=== PATIENT | male | born 1965 | race Hispanic/Latino ===

== ENCOUNTER 2017-11-29 12:11 | Emergency (ER) | payer SELFPAY ==
[2017-11-29] MEDS ORDERED: DiphenhydrAMINE 50 mg/ml Inj IVP STA (12:27)
[2017-11-29 12:34] VITALS: RESP 18
--- NOTE | 2017-11-29 12:44 | ED PDOC ---
Arrival/HPI - General Chief Complaint: High Blood Pressure Time Seen by Provider: 11/29/17 12:12 Historian: Patient - History of Present Illness Narrative History of Present Illness (Text): 11/29/17 12:27 Patient is a 52 year old male whose past medical history includes hypertension, who presents to the emergency department complaining of elevated blood pressure and headaches. Patient reports that he was taking Bystolic for hypertension for the past few weeks, but subsequently discontinued taking the medication because he felt well. 10 days ago he started experiencing headaches and noticing his BP was elevated. He measured his BP earlier today at [facility] pharmacy and notes that it was 175/125. He denies typically experiencing headaches and notes being slightly nauseous. Patient denies any fever, chills, chest pain, shortness of breath, vomiting, diarrhea, urinary symptoms, back pain, neck pain, dizziness, or any other complaints. Time/Duration: > week Symptom Onset: Gradual Symptom Course: Unchanged Context: Home Past Medical History - Provider Review Nursing Documentation Reviewed: Yes - Cardiac Hx Cardiac Disorders: Yes Hx Hypertension: Yes - Pulmonary Hx Respiratory Disorders: No - Neurological Hx Neurological Disorder: No - HEENT Hx HEENT Disorder: No - Renal Hx Renal Disorder: No - Endocrine/Metabolic Hx Endocrine Disorders: No - Hematological/Oncological Hx Blood Disorders: No - Integumentary Hx Dermatological Disorder: No - Musculoskeletal/Rheumatological Hx Musculoskeletal Disorders: No - Gastrointestinal Hx Gastrointestinal Disorders: No - Genitourinary/Gynecological Hx Genitourinary Disorders: No - Psychiatric Hx Psychophysiologic Disorder: No Hx Substance Use: No Family/Social History - Physician Review Nursing Documentation Reviewed: Yes Family/Social History: No Known Family HX Smoking Status: Heavy Smoker > 10 Cigarettes Daily Hx Alcohol Use: Yes Frequency of alcohol use: Socially Hx Substance Use: No Allergies/Home Meds Allergies/Adverse Reactions: Allergies No Known Allergies Allergy (Verified 11/29/17 12:14) Home Medications: Home Meds Medication Instructions Recorded Confirmed Nebivolol [Bystolic] 10 mg PO DAILY 11/29/17 11/29/17 Review of Systems - Physician Review All systems were reviewed & negative as marked: Yes - Review of Systems Constitutional: absent: Fevers, Night Sweats Respiratory: absent: SOB Cardiovascular: absent: Chest Pain Gastrointestinal: Nausea. absent: Diarrhea, Vomiting Genitourinary Male: absent: Urinary Output Changes Musculoskeletal: absent: Back Pain, Neck Pain Neurological: Headache. absent: Dizziness Physical Exam Vital Signs Reviewed: Yes Vital Signs Temp Pulse Resp BP Pulse Ox 11/29/17 15:15 98.1 F 68 18 142/90 96 11/29/17 14:06 142/90 11/29/17 12:34 55 L 18 156/98 H 95 11/29/17 12:14 98.4 F 54 L 16 161/102 H 96 Temperature: Afebrile Blood Pressure: Hypertensive Pulse: Bradycardic Respiratory Rate: Normal Appearance: Positive for: Well-Appearing Mental Status: Positive for: Alert and Oriented X 3 - Systems Exam Head: Present: Atraumatic, Normocephalic Pupils: Present: PERRL Extroacular Muscles: Present: EOMI Conjunctiva: Present: Normal Mouth: Present: Moist Mucous Membranes Neck: Present: Normal Range of Motion Respiratory/Chest: Present: Clear to Auscultation, Good Air Exchange. No: Respiratory Distress, Accessory Muscle Use Cardiovascular: Present: Regular Rate and Rhythm, Normal S1, S2. No: Murmurs Abdomen: No: Tenderness, Distention, Peritoneal Signs Back: Present: Normal Inspection Upper Extremity: Present: Normal Inspection. No: Cyanosis, Edema Lower Extremity: Present: Normal Inspection. No: Edema Neurological: Present: GCS=15, CN II-XII Intact, Speech Normal Skin: Present: Warm, Dry, Normal Color. No: Rashes Psychiatric: Present: Alert, Oriented x 3, Normal Insight, Normal Concentration Medical Decision Making ED Course and Treatment: 11/29/17 12:46 Impression: Patient is a 52 year old male who is complaining of headaches and elevated BP for the past 10 days. Differential Diagnosis included but are not limited to: suspect essential htn, ro htn urgency vs emergency Plan: -- Head CT without contrast -- EKG -- Cardiac enzymes -- Benadryl -- Reglan -- Urinalysis -- Reassess and disposition Progress Notes: 11/29/17 12:46 EKG shows sinus bradycardia at [address] or T wave changes. Interpreted by me. 11/29/17 14:[address] without Contrast: Creator: FINDINGS: HEMORRHAGE: No intracranial hemorrhage. BRAIN: No mass effect or edema. No atrophy or chronic microvascular ischemic changes. VENTRICLES: Unremarkable. No hydrocephalus. CALVARIUM: Note is made of a small elliptical shaped soft tissue density of with internal calcification in the right parietal scalp near vertex which may represent a inspissated sebaceous cyst. Punctate radiopaque density left parietal scalp could represent tiny calcification or foreign body. PARANASAL SINUSES: Minimal mucosal thickening left maxillary antrum. MASTOID AIR CELLS: Unremarkable as visualized. No inflammatory changes. OTHER FINDINGS: Findings suggest mild bilateral exophthalmos. Clinical correlation with physical exam. Orbits and contents otherwise unremarkable. IMPRESSION: No acute intracranial hemorrhage. Findings suggest mild bilateral exophthalmos. Clinical correlation with physical exam. Follow-up thyroid function tests may be prudent. 11/29/17 14:28 CT exam noted exophthalmos, which was not appreciated on physical exam. Patient noted to be bradycardic, no clinical concern thyroid storm. 11/29/17 15:42 pt reassesed symptoms improved neuro inteact advised outpt fu for outpt thryoid studies and return precautions advised. - Lab Interpretations Lab Results: 11/29/17 12:45 11/29/17 12:45 Lab Results 11/29/17 14:00: Urine Color Yellow, Urine Appearance Clear, Urine pH 6.0, Ur Specific [place] 1.010, Urine Protein Negative, Urine Glucose (UA) Negative, Urine Ketones Negative, Urine Blood Trace-lysed H, Urine Nitrate Negative, Urine Bilirubin Negative, Urine Urobilinogen 0.2, Ur Leukocyte Esterase Negative , Urine RBC 1 - 3, Urine WBC 0 - 2, Ur Epithelial Cells None, Urine Bacteria Small 11/29/17 12:45: Sodium 141, Potassium 5.2 H, Chloride 106, Carbon Dioxide 25, Anion Gap 16, BUN 18, Creatinine 0.9, Est GFR ( Amer) > 60, Est GFR (Non- Af Amer) > 60, Random Glucose 97, Calcium 9.6, Magnesium 2.3 H, Total Bilirubin 0.5, AST 27, ALT 35, Alkaline Phosphatase 48, Lactate Dehydrogenase 515, Total Creatine Kinase 182, Troponin I < 0.01, Total Protein 7.5, Albumin 4.7, Globulin 2.8, Albumin/Globulin Ratio 1.7 11/29/17 12:45: PT 10.6, INR 0.93, APTT 30.0 11/29/17 12:45: WBC 6.2, RBC 4.79, Hgb 15.6, Hct 44.7, MCV 93.3, MCH 32.6, MCHC 34.9, RDW 12.9, Plt Count 193, MPV 10.5, Gran % 61.4, Lymph % (Auto) 29.9, [place] % (Auto) 5.7, Eos % (Auto) 2.8, Baso % (Auto) 0.2, Gran # 3.78, Lymph # (Auto) 1.8, [place] # (Auto) 0.4, Eos # (Auto) 0.2, Baso # (Auto) 0.01 I have reviewed the lab results: Yes - RAD Interpretation Radiology Orders: 11/29/17 12:27 HEAD W/O CONTRAST [CT] Stat Executive Services Administrator: Radiologist - EKG Interpretation Interpreted by ED Physician: Yes Type: 12 lead EKG - Medication Orders Current Medication Orders: Discontinued Medications Diphenhydramine HCl (Benadryl) 25 mg IVP STAT STA Stop: 11/29/17 12:28 Last Admin: 11/29/17 12:55 Dose: 25 mg IVP Administration Document 11/29/17 12:55 (Rec: 11/29/17 12:55 [email or web address]) Charges for Administration # of IVP Administrations 1 Metoclopramide HCl (Reglan) 10 mg IVP STAT STA Stop: 11/29/17 12:28 Last Admin: 11/29/17 12:56 Dose: 10 mg IVP Administration Document 11/29/17 12:56 (Rec: 11/29/17 12:56 [email or web address]) Charges for Administration # of IVP Administrations 1 - Scribe Statement The provider has reviewed the documentation as recorded by the Rissaibmonika Chan Provider Scribe Attestation: All medical record entries made by the Scribe were at my direction and personally dictated by me. I have reviewed the chart and agree that the record accurately reflects my personal performance of the history, physical exam, medical decision making, and the department course for this patient. I have also personally directed, reviewed, and agree with the discharge instructions and disposition. Disposition/Present on Arrival - Present on Arrival Any Indicators Present on Arrival: No History of DVT/PE: No History of Uncontrolled Diabetes: No Urinary Catheter: No History of Decub. Ulcer: No History Surgical Site Infection Following: None - Disposition Have Diagnosis and Disposition been Completed?: Yes Diagnosis: Hypertension, Headache Disposition: HOME/ ROUTINE Disposition Time: 03:00 Condition: STABLE Discharge Instructions (ExitCare): High Blood Pressure in Adults, Headache, Adult (DC) Additional Instructions: please follow up with your doctor/clinic and specialist. please discuss your medications with your doctor and clinic. you may need further management of you blood pressure as an outpatient. return to any er with any worsening symptoms or concerns please discuss your ct results with your doctor. you may need further testing including blood tests as an outpatient. Referrals: [facility] [employer] [facility] [Outside] - [place] up [place] [facility] [place] - Follow up with primary [facility] [Outside] - Follow up with primary Abdirahman Mullen MD [Staff Provider] - Follow up with primary Forms: [email or web address] (Croatian)
[2017-11-29 13:09] LABS: BASO # 0.01 K/mm3 (0.0-2.0); BASO % 0.2 % (0.0-3.0); EOS # 0.2 (0.0-0.7); EOS % 2.8 % (1.5-5.0); GRAN # 3.78 (1.4-6.5); GRAN % 61.4 % (50.0-68.0); HEMOGLOBIN 15.6 g/dL (14.0-18.0); LYMPH # 1.8 (1.2-3.4); LYMPH % 29.9 % (22.0-35.0); MEAN CELL VOLUME 93.3 fl (80.0-105.0); MEAN CORPUSCULAR HEMOGLOBIN 32.6 pg (25.0-35.0); MEAN CORPUSCULAR HGB CONC 34.9 g/dl (31.0-37.0); MEAN PLATELET VOLUME 10.5 fl (7.0-11.0); MONO # 0.4 (0.1-0.6); MONO % 5.7 % (1.0-6.0); RBC 4.79 10^6/uL (3.5-6.1); RED CELL DISTRIBUTION WIDTH 12.9 % (11.5-14.5); WHITE BLOOD COUNT 6.2 10^3/ul (4.5-11.0)
[2017-11-29 13:11] LABS: INR 0.93; PROTHROMBIN TIME 10.6 SECONDS (9.4-12.5)
[2017-11-29 13:12] LABS: ALB/GLOB RATIO 1.7 (1.1-1.8); ALBUMIN 4.7 g/dL (3.0-4.8); CALCIUM 9.6 mg/dL (8.4-10.5); GFR AFRICAN-AMERICAN > 60; GFR NON-AFRICAN AMERICAN > 60
[2017-11-29 13:17] LABS: ALT/SGPT 35 U/L (7-56); AST/SGOT 27 U/L (17-59); BLOOD UREA NITROGEN 18 mg/dL (7-21)
[2017-11-29 13:23] LABS: TROPONIN I < 0.01 ng/mL
[2017-11-29 14:06] VITALS: BP 142/90
--- NOTE | 2017-11-29 14:10 | CT ---
Date of service: 11/29/2017 PROCEDURE: CT HEAD WITHOUT CONTRAST. HISTORY: campa COMPARISON: Sleep TECHNIQUE: Axial computed tomography images were obtained through the head/brain without intravenous contrast. Radiation dose: Total exam DLP = 1033.54 mGy-cm. This CT exam was performed using one or more of the following dose reduction techniques: Automated exposure control, adjustment of the mA and/or kV according to patient size, and/or use of iterative reconstruction technique. FINDINGS: HEMORRHAGE: No intracranial hemorrhage. BRAIN: No mass effect or edema. No atrophy or chronic microvascular ischemic changes. VENTRICLES: Unremarkable. No hydrocephalus. CALVARIUM: Note is made of a small elliptical shaped soft tissue density of with internal calcification in the right parietal scalp near vertex which may represent a inspissated sebaceous cyst. Punctate radiopaque density left parietal scalp could represent tiny calcification or foreign body. PARANASAL SINUSES: Minimal mucosal thickening left maxillary antrum. MASTOID AIR CELLS: Unremarkable as visualized. No inflammatory changes. OTHER FINDINGS: Findings suggest mild bilateral exophthalmos. Clinical correlation with physical exam. Orbits and contents otherwise unremarkable IMPRESSION: No acute intracranial hemorrhage. Findings suggest mild bilateral exophthalmos. Clinical correlation with physical exam. Follow-up thyroid function tests may be prudent.
[2017-11-29 14:25] LABS: URINE BILIRUBIN NEGATIVE (NEGATIVE); URINE BLOOD TRACE-LYSED (NEGATIVE); URINE GLUCOSE (UA) NEGATIVE (NEGATIVE); URINE LEUKOCYTE ESTERASE NEGATIVE Leu/uL (NEGATIVE); URINE PROTEIN NEGATIVE mg/dL (<30 mg/dL); URINE UROBILINOGEN 0.2 E.U./dL (<1 E.U./dL)
[2017-11-29 14:26] LABS: URINE APPEARANCE CLEAR (CLEAR); URINE COLOR YELLOW (YELLOW)
[2017-11-29 14:35] LABS: URINE WBC 0 - 2 /hpf (0-6)
[2017-11-29 14:36] LABS: URINE BACTERIA SMALL (NEG)
[2017-11-29 15:16] VITALS: PULSE 68; TEMP 98.1; O2SAT 96
--- NOTE | 2017-11-30 11:23 | CARD ---
APPROVED REPORT Date of service: 11/29/2017 EKG Measurement Heart [id number] <Conclusion> Sinus bradycardia Otherwise normal ECG
== END 2017-11-29 14:20 | disposition home or self-care (01) ==
LOC: ED 12:11
DX: I10 Essential (primary) hypertension (principal); R51 Headache; F17.210 Nicotine dependence, cigarettes, uncomplicated
CPT/HCPCS: 70450; 80053; 81001; 82550; 83615; 83735; 84484; 85025; 85610; 85730; 93005; 96374; 96375; 99283; J1200; J2765

== ENCOUNTER 2018-07-01 10:11 | Inpatient (IN) | payer BC, MEDICAID ==
--- NOTE | 2018-07-01 10:52 | ED PDOC ---
Arrival/HPI - General Time Seen by Provider: 07/01/18 10:17 Historian: Patient - Critical Care Critical Care Minutes: 60 minutes - History of Present Illness Narrative History of Present Illness (Text): 07/01/18 10:44 53 year old male, 1ppd smoker, whose past medical history includes hypertension, who presents to the emergency department for evaluation of loss of consciousness earlier today. 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 He states that his coworkers noted no seizure activity. Patient states when he woke up he felt chest pressure, nausea, and vomited once on the way here. He is still experiencing chest pressure, dizziness, and nausea. Of note, patient has a stress test several years ago which was normal, but has not followed up with a manager library since. He denies fevers, chills, headache, shortness of breath, dyspnea on exertion, cough, abdominal pain, diarrhea, back pain, neck pain, or any other complaint. Reports history of HTN for which he takes amlodipine. Smokes 1ppd. No known family history of significant cardiac disease. Time/Duration: Prior to Arrival Symptom Onset: Sudden Quality: Pressure Activities at Onset: Light Context: Work Past Medical History - Provider Review Nursing Documentation Reviewed: Yes - Cardiac Hx Cardiac Disorders: Yes Hx Hypertension: Yes - Pulmonary Hx Respiratory Disorders: No - Neurological Hx Neurological Disorder: No - HEENT Hx HEENT Disorder: No - Renal Hx Renal Disorder: No - Endocrine/Metabolic Hx Endocrine Disorders: No - Hematological/Oncological Hx Blood Disorders: No - Integumentary Hx Dermatological Disorder: No - Musculoskeletal/Rheumatological Hx Musculoskeletal Disorders: No - Gastrointestinal Hx Gastrointestinal Disorders: No - Genitourinary/Gynecological Hx Genitourinary Disorders: No - Psychiatric Hx Psychophysiologic Disorder: No Hx Substance Use: No Family/Social History - Physician Review Nursing Documentation Reviewed: Yes Family/Social History: No Known Family HX Smoking Status: Heavy Smoker > 10 Cigarettes Daily Hx Alcohol Use: Yes Hx Substance Use: No Allergies/Home Meds Allergies/Adverse Reactions: Allergies No Known Allergies Allergy (Verified 07/01/18 15:31) Home Medications: Home Meds Medication Instructions Recorded Confirmed amLODIPine [Norvasc] 10 mg PO DAILY 07/01/18 07/01/18 Review of Systems - Physician Review All systems were reviewed & negative as marked: Yes - Review of Systems Constitutional: absent: Fevers Respiratory: absent: SOB, Cough Cardiovascular: absent: Chest Pain (chest pressure) Gastrointestinal: Nausea, Vomiting. absent: Abdominal Pain, Diarrhea Musculoskeletal: absent: Back Pain, Neck Pain Neurological: Dizziness. absent: Headache Physical Exam Vital Signs Reviewed: Yes Vital Signs Temp Pulse Resp BP Pulse Ox 07/01/18 10:23 98.0 F 68 18 133/90 97 Temperature: Afebrile Blood Pressure: Normal Pulse: Regular Respiratory Rate: Normal Appearance: Positive for: Well-Appearing, Non-Toxic, Comfortable Pain Distress: None Mental Status: Positive for: Alert and Oriented X 3 - Systems Exam Head: Present: Atraumatic, Normocephalic Pupils: Present: PERRL Extroacular Muscles: Present: EOMI Conjunctiva: Present: Normal Mouth: Present: Moist Mucous Membranes Neck: Present: Normal Range of Motion Respiratory/Chest: Present: Clear to Auscultation, Good Air Exchange. No: Respiratory Distress, Accessory Muscle Use Cardiovascular: Present: Regular Rate and Rhythm, Normal S1, S2. No: Murmurs Abdomen: No: Tenderness, Distention, Peritoneal Signs Back: Present: Normal Inspection Upper Extremity: Present: Normal Inspection. No: Cyanosis, Edema Lower Extremity: Present: Normal Inspection. No: Edema Neurological: Present: GCS=15, CN II-XII Intact, Speech Normal Skin: Present: Warm, Dry, Normal Color. No: Rashes Psychiatric: Present: Alert, Oriented x 3, Normal Insight, Normal Concentration Medical Decision Making ED Course and Treatment: 07/01/18 10:54 Impression: 53 year old male who presents to the emergency department for evaluation of LOC, chest pressure, dizziness, and vomiting. Plan: -- Labs -- Chest X-ray -- Aspirin -- Nitrostat SL Tab -- Reassess and disposition Prior Visits: Notes and results from previous visits were reviewed. Progress Notes: Patient seen and examined. 07/01/18 10:57 EKG performed at 10:14 reviewed by me, shows: Normal sinus rhythm at 62 bpm with normal axis, normal intervals, no ST elevations, and T wave inversions in lead III. Patient given 324mg ASA and SL nitro x1. Labs drawn. Patient reports improved chest pain after nitro. 07/01/18 11:55 Chest X-ray reviewed by radiologist, shows: IMPRESSION: No active diseases. Positive troponin noted. Patient has no new complaints at this time. Repeat EKG done. 07/01/18 13:45 Repeat EKG performed at 12:21 reviewed by me, shows: Sinus bradycardia at 58bpm, with normal axis, normal intervals, no ST elevations, and T wave inversion in lead III; no change from initial EKG. Case discussed with Dr. Perez, hospitalist guest relations coordinator, who accepts patient for admission. Will book to telemetry bed. Case discussed with Dr. Patel for cardiology consult. Would like CT head, given syncopal episode and possible head trauma, to rule out any intracranial hemorrhage prior to starting heparin. Will likely take to labor and delivery nurse. Patient initially not amenable to admission and wanted to sign out AMA. However he was eventually convinced by myself, medical team, and RN to stay, however he is refusing cardiac cath. Informed by hospitalist team that patient should go to medical service. He initially was listed as a medicaid patient, but does have private insurance. Case discussed with Dr. Wan who accepts patient to his service. Changed admitting attending. 07/01/18 14:30 Rapid response called while patient was in ultrasound undergoing echo ordered by admitting team. Patient had apparently lost pulses and CPR was initiated immediately by radiology staff. Code blue called. Patient was in vfib and received a total of defibrillations x5, epinephrine x4, and one dose 300mg amiodarone and eventually regained pulses. Please refer to code sheet for more details. Patient was intubated by myself during code blue, please refer to procedure note in this chart for more detail. Dr. Patel was present throughout code blue and immediately took patient to labor and delivery nurse following ROSC. 07/01/18 17:55 - Critical Care Critical Care Minutes: 60 minutes - Lab Interpretations I have reviewed the lab results: Yes - RAD Interpretation Radiology Orders: 07/01/18 10:41 CHEST PORTABLE [RAD] Stat Signals Intelligence Superintendent: Radiologist - EKG Interpretation Interpreted by ED Physician: Yes Type: 12 lead EKG - Medication Orders Current Medication Orders: Discontinued Medications Aspirin (Aspirin) 325 mg PO STAT STA Stop: 07/01/18 10:41 Nitroglycerin (Nitrostat Sl Tab) 0.4 mg SL STAT STA Stop: 07/01/18 10:41 Procedures - Intubation Time of Intubation: 14:43 (Intubated during code blue) Intubation Method: orotracheal Tube Size (cm): 7.5 Breath Sounds after Intubation: equal Intubation Complications: no complications Post Intubation Xray: No (Patient went directly to labor and delivery nurse) - Scribe Statement The provider has reviewed the documentation as recorded by the Scribe Deloris Wright Provider Scribe Attestation: All medical record entries made by the Scribe were at my direction and personally dictated by me. I have reviewed the chart and agree that the record accurately reflects my personal performance of the history, physical exam, medical decision making, and the department course for this patient. I have also personally directed, reviewed, and agree with the discharge instructions and disposition. Disposition/Present on Arrival - Present on Arrival Any Indicators Present on Arrival: No History of DVT/PE: No History of Uncontrolled Diabetes: No Urinary Catheter: No History Surgical Site Infection Following: None - Disposition Have Diagnosis and Disposition been Completed?: Yes Diagnosis: NSTEMI (non-ST elevated myocardial infarction) Disposition: HOSPITALIZED Disposition Time: 13:42 Condition: SERIOUS
[2018-07-01 11:15] LABS: BASO # 0.01 K/mm3 (0.0-2.0); BASO % 0.1 % (0.0-3.0); EOS % 0.1 % (1.5-5.0); HEMOGLOBIN 15.5 g/dL (14.0-18.0); LYMPH # 0.8 (1.2-3.4); LYMPH % 7.5 % (22.0-35.0); MEAN CELL VOLUME 92.1 fl (80.0-105.0); MEAN CORPUSCULAR HEMOGLOBIN 31.5 pg (25.0-35.0); MEAN CORPUSCULAR HGB CONC 34.2 g/dl (31.0-37.0); MEAN PLATELET VOLUME 10.7 fl (7.0-11.0); MONO # 0.5 (0.1-0.6); MONO % 4.4 % (1.0-6.0); RBC 4.92 10^6/uL (3.5-6.1); RED CELL DISTRIBUTION WIDTH 13.9 % (11.5-14.5); WHITE BLOOD COUNT 10.7 10^3/uL (4.5-11.0)
--- NOTE | 2018-07-01 11:24 | RAD ---
Date of service: 07/01/2018 HISTORY: chest pain COMPARISON: No prior. FINDINGS: LUNGS: No active pulmonary disease. PLEURA: No significant pleural effusion identified, no pneumothorax apparent. CARDIOVASCULAR: No aortic atherosclerotic calcification present. Normal cardiac size. No pulmonary vascular congestion. OSSEOUS STRUCTURES: No significant abnormalities. VISUALIZED UPPER ABDOMEN: Normal. OTHER FINDINGS: None. IMPRESSION: No active disease.
[2018-07-01 12:00] LABS: ALB/GLOB RATIO 1.6 (1.1-1.8); ALBUMIN 4.9 g/dL (3.0-4.8); ALT/SGPT 132 U/L (7-56); AST/SGOT 144 U/L (17-59); BLOOD UREA NITROGEN 16 mg/dL (7-21); CALCIUM 9.4 mg/dL (8.4-10.5); GFR NON-AFRICAN AMERICAN > 60; TROPONIN I 1.43 ng/mL
[2018-07-01 12:03] LABS: CK MB% 6.8 % (2.5-3.0); CK-MB 38.3 ng/mL (0.0-3.6)
[2018-07-01] MEDS ORDERED: Heparin25000 units/250ml 1/2NS 25,000 UNITS/250 ML BAG IV SCH (13:30)
--- NOTE | 2018-07-01 14:40 | CT ---
Date of service: 07/01/2018 PROCEDURE: CT HEAD WITHOUT CONTRAST. HISTORY: syncope COMPARISON: 11/29/2017 TECHNIQUE: Axial computed tomography images were obtained through the head/brain without intravenous contrast. Radiation dose: Total exam DLP = 982.06 mGy-cm. This CT exam was performed using one or more of the following dose reduction techniques: Automated exposure control, adjustment of the mA and/or kV according to patient size, and/or use of iterative reconstruction technique. FINDINGS: HEMORRHAGE: No intracranial hemorrhage. BRAIN: No mass effect or edema. No atrophy or chronic microvascular ischemic changes. VENTRICLES: Unremarkable. No hydrocephalus. CALVARIUM: Unremarkable. PARANASAL SINUSES: Unremarkable as visualized. No significant inflammatory changes. MASTOID AIR CELLS: Unremarkable as visualized. No inflammatory changes. OTHER FINDINGS: Findings were discussed with Dr. Patel at 2:35 p.m. IMPRESSION: No acute intracranial findings
[2018-07-01 14:43] LABS: INR 1.02; PARTIAL THROMBOPLASTIN TIME 29.4 Seconds (26.9-38.3); PROTHROMBIN TIME 11.3 SECONDS (9.4-12.5)
[2018-07-01] MEDS ORDERED: Lidocaine PF 2% (5 ml) Inj (For Cardiac Arrhy) ONE (14:52)
[2018-07-01] MEDS ORDERED: Iodixanol 320 MG/ML 200 ML BOTTLE IV ONE (14:53)
[2018-07-01] MEDS ORDERED: Iohexol 350mgl/ml 50 ML ONE (14:53)
[2018-07-01] MEDS ORDERED: Iodixanol 320 MG/ML 100 ML BOTTLE IV ONE (14:53)
[2018-07-01] MEDS ORDERED: Nitroglycerin 50mg in D5W 0 MG/0 ML BOTTLE IV ONE (14:54)
[2018-07-01] MEDS ORDERED: Phenylephrine 10 mg/ml Inj ONE (14:54)
[2018-07-01] MEDS ORDERED: Amiodarone 150mg/3 ml vial ONE (15:05)
[2018-07-01] MEDS ORDERED: Eptifibatide 20 mg/10mL Inj IVP ONE (15:18)
[2018-07-01] MEDS ORDERED: Eptifibatide 0.75 mg/ml 75 MG/100 ML BAG IV ONE (15:24)
[2018-07-01] MEDS ORDERED: DOBUTamine 500mg/250ml D5W 500 MG/250 ML BAG ONE (15:52)
[2018-07-01] MEDS ORDERED: Midazolam 2 MG/2 ML VIAL ONE ×2 (15:53→16:08)
[2018-07-01 16:20] LABS: ARTERIAL BLOOD GAS HCO3 14.9 mmol/L (21-28); ARTERIAL BLOOD GAS O2 SAT 98.8 % (95-98); ARTERIAL BLOOD GAS PCO2 40 mm/Hg (35-45); ARTERIAL BLOOD GAS PH 7.18 (7.35-7.45); ARTERIAL BLOOD GAS TCO2 16.1 mmol.L (22-28)
[2018-07-01] MEDS: Eptifibatide 0.75 mg/ml 75 MG/100 ML BAG IV SCH ×2 (16:30→21:37)
[2018-07-01] MEDS: DOBUTamine 500mg/250ml D5W 500 MG/250 ML BAG IV PRN (16:30)
[2018-07-01] MEDS: Midazolam 100 mg/100ml in NS 100 MG/100 ML SOL IV PRN (17:00)
[2018-07-01] MEDS ORDERED: Fentanyl 1000mcg/100ml NS 1,000 MCG/100 ML BAG IV PRN (17:22)
--- NOTE | 2018-07-01 17:36 | CP.PCM.CON ---
History of Present Illness - History of Present Illness History of Present Illness: MICU CONSULT NOTE Patient is 53yo male with PMhx of obesity, HTN, active smoker 1pkpd, presented to the ER with syncopal episode. Pt was noted to elevated troponin 1.1, seen by cardiology refused cardiac cath. While in U/S patient sustained Vfib arrest, shocked 5x, given Amio x 2, and Epi. Total CPR time unknown. ROSC achieved, patient taken to the laboratory technologist, at which time he had 100% RCA occlusion, s/p PCI with stent. Pt also had IABP put in, currently on Doobutamine 5mcg, intubated, sedated. History gathered from cardiology staff, and ER documentation. PMHx as above PSHx unknown Meds unknown FHx NC Social 1pkpd smoker, rest unknown ROS cannot obtain Review of Systems - Review of Systems Review of Systems: intubated, sedated Past Patient History - Infectious Disease Hx of Infectious Diseases: None - Past Social History Smoking Status: Heavy Smoker > 10 Cigarettes Daily - CARDIAC Hx Cardiac Disorders: Yes Hx Hypertension: Yes - PULMONARY Hx Respiratory Disorders: No - NEUROLOGICAL Hx Neurological Disorder: No - HEENT Hx HEENT Problems: No - RENAL Hx Chronic Kidney Disease: No - ENDOCRINE/METABOLIC Hx Endocrine Disorders: No - HEMATOLOGICAL/ONCOLOGICAL Hx Blood Disorders: No - INTEGUMENTARY Hx Dermatological Problems: No - MUSCULOSKELETAL/RHEUMATOLOGICAL Hx Musculoskeletal Disorders: No - GASTROINTESTINAL Hx Gastrointestinal Disorders: No - GENITOURINARY/GYNECOLOGICAL Hx Genitourinary Disorders: No - PSYCHIATRIC Hx Psychophysiologic Disorder: No Hx Substance Use: No - SURGICAL HISTORY Hx Surgeries: No Meds Allergies/Adverse Reactions: Allergies Allergy/AdvReac Type Severity Reaction Status Date / Time No Known Allergies Allergy Verified 07/01/18 15:31 - Medications Medications: Current Medications Heparin Sodium/Sodium Chloride (Heparin 57240 Units/250ml 1/2 Normal Saline) 25,000 units in 250 mls @ 12.791 mls/hr IV .[id number] ALIN; Protocol Lorazepam (Ativan) 2 mg IVP Q2H PRN; Protocol PRN Reason: Anxiety Pantoprazole Sodium (Protonix Ec Tab) 40 mg PO 0600 ALIN Physical Exam - Constitutional Appears: No Acute Distress - Head Exam Head Exam: NORMAL INSPECTION - Eye Exam Eye Exam: Normal appearance - ENT Exam ENT Exam: Mucous Membranes Dry - Respiratory Exam Respiratory Exam: Clear to Auscultation Bilateral, NORMAL BREATHING PATTERN - Cardiovascular Exam Cardiovascular Exam: REGULAR RHYTHM, +S1, +S2 - GI/Abdominal Exam GI & Abdominal Exam: Normal Bowel Sounds - Extremities Exam Extremities exam: Positive for: normal inspection - Neurological Exam Neurological exam: Altered - Skin Skin Exam: Normal Color, Warm Results - Vital Signs Recent Vital Signs: Last Vital Signs Temp 98.0 F 07/01/18 10:23 Pulse 50 L 07/01/18 14:50 Resp 16 07/01/18 14:50 BP 138/80 07/01/18 14:50 Pulse Ox 95 07/01/18 14:50 - Labs Result Diagrams: 07/01/18 11:00 07/01/18 11:00 Labs: Laboratory Results - last 24 hr 07/01/18 07/01/18 07/01/18 11:00 11:00 11:00 WBC 10.7 RBC 4.92 Hgb 15.5 Hct 45.3 MCV 92.1 MCH 31.5 MCHC 34.2 RDW 13.9 Plt Count 223 MPV 10.7 Neut % (Auto) 87.9 H Lymph % (Auto) 7.5 L [place] % (Auto) 4.4 Eos % (Auto) 0.1 L Baso % (Auto) 0.1 Lymph # (Auto) 0.8 L [place] # (Auto) 0.5 Eos # (Auto) 0.0 Baso # (Auto) 0.01 Absolute Neuts (auto) 9.44 H PT INR APTT pCO2 pO2 HCO3 ABG pH ABG Total CO2 ABG O2 Saturation ABG Base Excess ABG Potassium Glucose Lactate FiO2 Crit Value Called To Crit Value Called By Blood Gas Notified Time Sodium 138 Potassium 5.6 H* Chloride 100 Carbon Dioxide 28 Anion Gap 14 BUN 16 Creatinine 0.9 Est GFR ( Amer) > 60 Est GFR (Non-Af Amer) > 60 Random Glucose 151 H Calcium 9.4 Magnesium 1.8 Total Bilirubin 0.6 AST 144 H D ALT 132 H Alkaline Phosphatase 65 Lactate Dehydrogenase 712 H Total Creatine Kinase 560 H CK-MB (CK-2) 38.3 H CK-MB (CK-2) % 6.8 H Troponin I 1.43 H* D Total Protein 8.0 Albumin 4.9 H Globulin 3.1 Albumin/Globulin Ratio 1.6 Arterial Blood Potassium Alcohol, Quantitative < 10 07/01/18 07/01/18 11:30 16:10 WBC RBC Hgb Hct MCV MCH MCHC RDW Plt Count MPV Neut % (Auto) Lymph % (Auto) [place] % (Auto) Eos % (Auto) Baso % (Auto) Lymph # (Auto) [place] # (Auto) Eos # (Auto) Baso # (Auto) Absolute Neuts (auto) PT 11.3 INR 1.02 APTT 29.4 pCO2 40 pO2 114.0 H HCO3 14.9 L ABG pH 7.18 L* ABG Total CO2 16.1 L ABG O2 Saturation 98.8 H ABG Base Excess -12.9 L ABG Potassium 4.7 Glucose 281 H Lactate 8.3 H* FiO2 40.0 Crit Value Called To Crit Value Called By Ritchie Blood Gas Notified Time 1620 Sodium 134.0 Potassium Chloride 98.0 Carbon Dioxide Anion Gap BUN Creatinine Est GFR ( Amer) Est GFR (Non-Af Amer) Random Glucose Calcium Magnesium Total Bilirubin AST ALT Alkaline Phosphatase Lactate Dehydrogenase Total Creatine Kinase CK-MB (CK-2) CK-MB (CK-2) % Troponin I Total Protein Albumin Globulin Albumin/Globulin Ratio Arterial Blood Potassium 4.7 Alcohol, Quantitative Assessment & Plan - Assessment and Plan (Free Text) Assessment: 53yo male with PMHx of HTN, active smoker, presented with syncope, refused cardiac cath, subsequently went into VFIB cardiac arrest a/p PCI of RCA with stent Syncope HTN VFIB arrest s/p ROSC s/p PCI CAD - currently afebrile, HD stable on Dobutamine 5mcg, intubated, sedated on IABP 1:1, s/p PCI of RCA - labs, imaging, chart reviewed Recommend: - cont with vent support, low tidal vol ventilation, duonebs PRN, daily sedation vacation, CPAP trials, ABG, CXR - Nicotine Patch 21mcg - Panculture, UCX, BCx, Procal - NO ID issues - ASA, Statin - HOLD BB - Integrillin drip, as per cardio - Heparin drip - Plavix - ECHO - follow up cardio - repeat BMP, ABG with shock panel - IVF, NS 150cc/hr - FS control - Check HgBA1C, TSH - GI ppx - DVT ppx - Monitor in MICU Critical care time 45 minutes
[2018-07-01 18:15] LABS: ARTERIAL BLOOD GAS HCO3 21.1 mmol/L (21-28); ARTERIAL BLOOD GAS O2 SAT 99.1 % (95-98); ARTERIAL BLOOD GAS PCO2 41 mm/Hg (35-45); ARTERIAL BLOOD GAS PH 7.32 (7.35-7.45); ARTERIAL BLOOD GAS TCO2 22.4 mmol.L (22-28)
[2018-07-01 18:30] LABS: BASO # 0.01 K/mm3 (0.0-2.0); BASO % 0.1 % (0.0-3.0); HEMOGLOBIN 14.4 g/dL (14.0-18.0); LYMPH # 1.2 (1.2-3.4); LYMPH % 7.8 % (22.0-35.0); MEAN CELL VOLUME 91.6 fl (80.0-105.0); MEAN CORPUSCULAR HGB CONC 33.8 g/dl (31.0-37.0); MEAN PLATELET VOLUME 10.1 fl (7.0-11.0); MONO # 0.4 (0.1-0.6); MONO % 2.4 % (1.0-6.0); RBC 4.65 10^6/uL (3.5-6.1); WHITE BLOOD COUNT 15.5 10^3/uL (4.5-11.0)
[2018-07-01] MEDS: Sodium Chloride 0.9% 100 ML IV SCH (18:38)
[2018-07-01] MEDS ORDERED: Influenza Vaccine 60 mcg/0.5 mL SYR (4YR UP) IM ONE (18:48)
[2018-07-01] MEDS ORDERED: Pneumococcal 23-Valent Vaccine IM ONE (18:48)
[2018-07-01 18:51] LABS: LDL CHOLESTEROL 119 mg/dL (0-129)
[2018-07-01 18:57] LABS: ALB/GLOB RATIO 1.4 (1.1-1.8); ALBUMIN 4.1 g/dL (3.0-4.8); ALT/SGPT 201 U/L (7-56); AST/SGOT 306 U/L (17-59); BLOOD UREA NITROGEN 20 mg/dL (7-21); CALCIUM 8.9 mg/dL (8.4-10.5); GFR NON-AFRICAN AMERICAN > 60; HDL CHOLESTEROL 34 mg/dL (29-60)
--- NOTE | 2018-07-01 18:57 | PCM.RRT ---
<Meme Sanchez - Last Filed: 07/01/18 18:41> FRONT END DEVELOPER Nurse Assessment - Situation Date: 07/01/18 Time FRONT END DEVELOPER was called: 13:35 FRONT END DEVELOPER Responder Arrival Time: 13:36 FRONT END DEVELOPER Location:: Ultrasound FRONT END DEVELOPER Reason for Call: Change in Mental Status I.Reason for FRONT END DEVELOPER - A) Acute Change in Patient: Subjective: Rapid response was called at 13:35. Team arrived at 13:36. When the team walked in compressions were already started and rapid response was turned into a code blue. Pt was already attached to AED with monitor. Pt was transferred from ED where pt was noted to have an elevation in trops but refused filling station laborer and wanted to signout AMA. Pt then became unresponsive so FRONT END DEVELOPER and code blue was called. Upon noting that the pt was unresponsive and did not have a pulse ACLS guidelines were initiated. Over the course of the code pt received a total of 4 doses of epinephrine, 300 of amiodarone and 5 shocks as pt was noted to be in Vfib multiple times during the code. Pt was intubated during code. Pt then achieved ROSC and was quickly transferred to filling station laborer. Upon arrival to filling station laborer, pt was safely transferred to the care of Dr. Patel. Please see cath report for full details of intervention. Pt then transferred to ICU for monitoring. - Constitutional Appears: In Acute Distress Additional Comments: unable to perform remained of exam as pt was code blue - Head Head Exam: ATRAUMATIC, NORMAL INSPECTION, NORMOCEPHALIC Plan - Assessment of Findings&Treatment Plan Please see cath report for further details. as per interventions during code blue, detailed above. Procedures Attestation:: I certify that I have explained the specified Operation(s) or Procedure(s), risks, benefits and reasonable alternatives to the Patient and/or other person responsible. The opportunity was given to ask questions and all questions answered - Intubation Time Out Performed: No (during code blue) Sedative: None Laryngoscope: Mikayla ET Tube Secured Locarion: Lips ET Tube Placement Confirmation: Visualized Passing Through Cords, Breath Sounds Equal Bilaterally, No Breath Sounds Over Epigastrum, Confirmation w/Capnometry Patient Tolerated Procedure: Other (was during code, difficult to assess) Procedure Immediate Complications: Other (was during code, difficult to assess) <Radha Perez - Last Filed: 07/13/18 08:00> Attending/Attestation - Attestation I have personally seen and examined this patient.: Yes I have fully participated in the care of the patient.: Yes I have reviewed all pertinent clinical information, including history, physical exam and plan: Yes
[2018-07-01 19:32] LABS: VENOUS BLOOD GAS BASE EXCESS -4.8 mmol/L (0.0-2.0); VENOUS BLOOD GAS PO2 157 mm/Hg (30-55)
--- NOTE | 2018-07-01 19:58 | CARDCATH ---
PROCEDURE DATE: 07/01/2018 EMERGENCY CARDIAC CATHETERIZATION AND PERCUTANEOUS TRANSLUMINAL CORONARY ANGIOPLASTY HISTORY: The patient is a 53-year-old male who presented after a syncopal episode. The patient's past medical history includes a smoker a pack a day with a history of hypertension. 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 He was brought in and the patient states when he woke up he felt chest pressure, nausea, and vomited. The patient has no previous cardiac history. I was called to see him when the ER doctor noticed that his troponins were elevated. Because of his syncope, he was sent for a CT scan of the head. If the CT scan was negative, our plans were to take him to the mineral ore processing labourer for urgent cardiac catheterization for his non-STEMI. The risks benefits of cardiac cath was discussed with patient, but he refused. He wanted to go to [facility] in [place] for further care, even if it required him to sign out AMA. However during his syncopal workup, the patient arrested and had V-fib arrest in ultrasound. He was shocked several times, CPR was performed, and the patient was intubated. After several shocks including several doses of epinephrine, the patient returned to sinus rhythm with a blood pressure of approximately 100. He was started on IV dopamine and brought up to the mineral ore processing labourer under emergency situation. After speaking with the mother on the telephone and relayed his event, the mother verbally agreed to have the procedure done. Emergency cardiac catheterization and PTCA. The right femoral artery was cannulated with 6-Albanian sheath in the mineral ore processing labourer while the patient was on a ventilator and initial hemodynamic pressures revealed a systolic pressure of approximately 90 systolic and the pulse oximetry was at 100%. We sedated the patient since he was thrashing with intravenous Versed 2 mg. With the assistance of a trained observer, we continued conscious sedation. Total conscious sedation time was approximately an hour. The findings on catheterization revealed a left ventricle that contracted normally. Estimated ejection fraction is 60% to 65%. His coronary anatomy revealed a right dominant circulation. The RCA was occluded in its proximal portion. The left main artery was unremarkable. The LAD revealed a long 70% stenoses in its proximal portion extending into the midportion of the LAD. The diagonal vessels and circumflex arteries revealed intimal irregularities without critical lesions. The patient was given intravenous Integrilin two boluses and a drip as well as IV Angiomax. Under fluoroscopic guide, the guiding catheter was placed in the ostium of the RCA. An 0.014 run-through wire was used to cross the total occlusion. A 2.0 followed by 2.5 followed by 3.0 balloon was utilized to dilate the total occlusion. A large thrombus was noted in the proximal to midportion of the RCA. IV Integrilin was continued. A too long 3.5 stents were placed in the proximal RCA extending into the mid RCA. Repeat coronary arteriography revealed an excellent result with no residual stenosis at the lesion. There was slow flow down the PDA given the lucency consistent with thrombus and in the PDA. Given the patient's hemodynamic instability, a balloon pump was placed under fluoroscopic guide and placed into the descending aorta. Augmented pressures were greater than 65 mmHg. In addition, because of the likelihood of an RV infarction, the patient was started on IV dobutamine as well. The patient was transferred to the CCU in stable hemodynamic condition. In summary, the procedure was an emergency cardiac catheterization and PTCA of an occluded RCA due to an acute inferior wall HI complicated by ventricular fibrillation x5, CPR as well as hemodynamic instability consistent with an RV infarct. A balloon pump was placed due to continued hemodynamic instability. Intravenous amiodarone was given to the patient for his ventricular arrhythmias. Given these findings, we will continue hemodynamic support with intra-aortic balloon pump as well as IV dobutamine and dopamine. It is hopeful that his neurologic status will not be affected since CPR was started early as well as hopefully his hemodynamics will improve given his RCA was reperfused and his RV infarct will resolve. Devonte Patel MD ESTHER
--- NOTE | 2018-07-01 21:23 | HP ---
DATE OF EXAM: 07/01/2018 HISTORY OF PRESENT ILLNESS: I was called by the emergency room doctor about Reuben as he was coding and being sent up to cardiac cath for evaluation. This is a 53-year-old . 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 No seizure-like activity was noted. He felt like a chest pressure, nauseous, and vomited once. He was taken to the [place] emergency room, what I understand he was telling people he is going to AM and he want to go to [facility] in [place] and was not going to do a cardiac cath here in [place] and apparently what I understand from the history from the resident with that he have 5 codes with V-fib, taken emergently to the cardiac cath where it was 100% blocked in the RCA I was notified to admit him. He is going to go to the Intensive Care Unit. I discussed this with the inspector elevators. SOCIAL HISTORY: He is a heavy smoker. Does drink alcohol. No substance abuse. FAMILY HISTORY: Unknown. ALLERGIES: NO KNOWN ALLERGIES. MEDICATIONS: He takes Bystolic 10 mg daily. REVIEW OF SYSTEMS: I am finding from the ER, he had chest pressure, nausea, vomiting, dizziness, and passed out. PHYSICAL EXAMINATION: VITAL SIGNS: He had 98 temperature, 68 pulse, 18 respiratory rate, 133/90 blood pressure, and 97%. He is now on the ventilator. He is sedated, status post cardiac cath, stent placement. He is going to go to Intensive Care Unit. HEART: Regular rate, normal S1 and S2. LUNGS: Decreased breath sound bilaterally on the ventilator. ABDOMEN: Soft, obese, and nontender. EXTREMITIES: No edema. LABORATORY DATA: On test; he had a chest x-ray that did not show anything, no acute disease. CAT scan has no acute issues. He had a 10.7 white count, 15.5 hemoglobin, 45.3 hematocrit with 223 platelets. He had 1.02 INR. His pCO2 was 40, pO2 is 114. His ABG is 7.18. Lactate was 8.3. He has 138 sodium, potassium 5.6, BUN 16, creatinine 0.9, GFR greater than 60, sugars 151, calcium 9.4, magnesium 1.8, and total bilirubin 0.6. AST 144, ALT 132, alkaline phosphatase 65, lactate dehydrogenase 712. His troponin was elevated at 1.43. Total protein is 8. ASSESSMENT AND PLAN: He will have a consult with Dr. Devonte Patel. He is going to go to Intensive Care Unit. He was coded and was told 5 times in ventricular fibrillation. He had cardiogenic shock. He has coronary artery disease. Right coronary artery was 100% blocked. He was stented. Ministerio Wan DO MTDD
[2018-07-01 21:53] LABS: HEPATITIS B SURFACE AG Negative (NEGATIVE)
[2018-07-01 21:58] LABS: HEPATITIS A IGM NEGATIVE (NEGATIVE); HEPATITIS B CORE AB NEGATIVE (NEGATIVE)
--- NOTE | 2018-07-01 21:58 | CARD ---
APPROVED REPORT Date of service: 07/01/2018 EKG Measurement Heart [id number] <Conclusion> Normal sinus rhythm Possible Inferior infarct, age undetermined NDSTT abnormalities Prolonged QT Abnormal ECG
--- NOTE | 2018-07-01 22:04 | CARD ---
APPROVED REPORT Date of service: 07/01/2018 EKG Measurement Heart [id number] <Conclusion> Sinus bradycardia Otherwise normal ECG
--- NOTE | 2018-07-01 22:08 | CARD ---
APPROVED REPORT Date of service: 07/01/2018 EKG Measurement Heart [id number] <Conclusion> Normal sinus rhythm Minor NDSTT abnormalities Abnormall ECG
[2018-07-01 22:10] LABS: HEPATITIS C ANTIBODY NEGATIVE (NEGATIVE)
[2018-07-02] MEDS: Sodium Chloride 0.9% 100 ML IV SCH ×3 (00:42→00:56)
[2018-07-02] MEDS: Eptifibatide 0.75 mg/ml 75 MG/100 ML BAG IV SCH ×2 (00:57→04:00)
[2018-07-02] MEDS ORDERED: Sodium Chloride 0.9% 100 ML IV SCH (01:35)
[2018-07-02 02:58] LABS: BARBITURATES, UR NEGATIVE (NEGATIVE); BENZODIAZEPINES, UR POSITIVE (NEGATIVE); OPIATES, UR NEGATIVE (NEGATIVE); PHENCYCLIDINE, UR NEGATIVE (NEGATIVE)
[2018-07-02 05:11] LABS: BASO # 0.01 K/mm3 (0.0-2.0); BASO % 0.1 % (0.0-3.0); HEMOGLOBIN 13.3 g/dL (14.0-18.0); LYMPH # 1.5 (1.2-3.4); LYMPH % 13.1 % (22.0-35.0); MEAN CORPUSCULAR HEMOGLOBIN 30.6 pg (25.0-35.0); MEAN CORPUSCULAR HGB CONC 33.6 g/dl (31.0-37.0); MONO # 0.7 (0.1-0.6); MONO % 5.8 % (1.0-6.0); RBC 4.35 10^6/uL (3.5-6.1); RED CELL DISTRIBUTION WIDTH 14.1 % (11.5-14.5); WHITE BLOOD COUNT 11.5 10^3/uL (4.5-11.0)
[2018-07-02] MEDS ORDERED: Sodium Chloride 0.9% 1,000 ML IV SCH ×3 (05:15→16:01)
[2018-07-02 05:21] LABS: ARTERIAL BLOOD GAS HEMOGLOBIN 13.8 g/dL (11.7-17.4); ARTERIAL BLOOD GAS O2 CAPACITY 18.9 mL/dl (16-24); ARTERIAL BLOOD GAS O2 CONTENT 18.5 ML/dl (15-23); ARTERIAL BLOOD GAS O2 SAT 97.7 % (95-98); ARTERIAL BLOOD GAS PCO2 37 mm/Hg (35-45); ARTERIAL BLOOD GAS PH 7.42 (7.35-7.45); ARTERIAL BLOOD GAS TCO2 25.1 mmol.L (22-28)
[2018-07-02 05:32] LABS: LDL CHOLESTEROL 111 mg/dL (0-129)
[2018-07-02] MEDS ORDERED: Pantoprazole 40 mg EC Tab PO SCH (06:00)
[2018-07-02] MEDS: Midazolam 100 mg/100ml in NS 100 MG/100 ML SOL IV PRN (06:46)
[2018-07-02] MEDS: DOBUTamine 500mg/250ml D5W 500 MG/250 ML BAG IV PRN (06:47)
[2018-07-02 06:49] LABS: ALB/GLOB RATIO 1.4 (1.1-1.8); ALBUMIN 3.8 g/dL (3.0-4.8); ALT/SGPT 180 U/L (7-56); AST/SGOT 485 U/L (17-59); BLOOD UREA NITROGEN 16 mg/dL (7-21); CALCIUM 8.5 mg/dL (8.4-10.5); GFR NON-AFRICAN AMERICAN > 60; HDL CHOLESTEROL 36 mg/dL (29-60)
--- NOTE | 2018-07-02 07:11 | CP.CCUPN ---
<Jaime Cardenas - Last Filed: 07/02/18 12:46> CCU Subjective - Physician Review Subjective (Free Text): Jaime Cardenas DO. Critical Care Progress note Patient seen and examined at bedside, sedated/intubated on fentanyl and versed drip . He had mild nasal and oral bleeding that was suctioned no significant overnight events. CCU Objective - Vital Signs / Intake & Output Vital Signs (Last 4 hours): Vital Signs Temp Pulse Resp BP Pulse Ox 07/02/18 06:00 99.5 F 119 H 123 H 123/74 07/02/18 05:00 119 H 20 125/76 07/02/18 04:00 99.7 F H 117 H 21 125/74 07/02/18 03:57 119 H 07/02/18 03:50 117 H 93 L 07/02/18 03:45 116 H 124/81 94 L 07/02/18 03:40 118 H 94 L 07/02/18 03:30 118 H 128/78 95 07/02/18 03:20 114 H 95 07/02/18 03:15 114 H 123/75 95 Intake and Output (Last 8hrs): Intake & Output 07/01/18 07/02/18 07/02/18 22:59 06:59 14:59 Intake Total 294 2694 Output Total 690 700 Balance -396 1994 Weight 232 lb Intake: IV 294 2694 Dobutamine 192 Heparin 172 Left Hand 200 Right Antecubital 1800 fentanyl 30 integrilin 192 Output: Urine 690 700 Urethral ([place]) 690 700 Stool 0 - Physical Exam Physical Exam Limitations: Positive for: Altered Mental Status Head: Positive for: Atraumatic, Normocephalic Pupils: Positive for: Sluggish Extroacular Muscles: Positive for: EOMI Conjunctiva: Positive for: Normal Mouth: Positive for: Moist Mucous Membranes Nose (Internal): Positive for: Other (dried blood nticed, packing applied) Neck: Positive for: Normal Range of Motion Respiratory/Chest: Positive for: Decreased Breath Sounds Cardiovascular: Positive for: Regular Rate and Rhythm, Normal S1, S2. Negative for: Murmurs Abdomen: Negative for: Tenderness, Distention, Peritoneal Signs Back: Positive for: Normal Inspection Upper Extremity: Positive for: Normal Inspection. Negative for: Cyanosis, Edema Lower Extremity: Positive for: Normal Inspection. Negative for: Edema Neurological: Positive for: Other (sedated) Skin: Positive for: Warm, Dry, Normal Color. Negative for: Rashes - Medications Active Medications: Active Medications Generic Name Dose Route Start Last Admin Trade Name Freq PRN Reason Stop Dose Admin Albuterol/Ipratropium 3 ml 07/01/18 17:28 Duoneb 3 Mg/0.5 Mg (3 Ml) Ud IH Q2H PRN Shortness of Breath Heparin Sodium/Sodium Chloride 25,000 units in 250 mls @ 12.791 mls/hr 07/01/18 13:30 07/01/18 22:50 Heparin 79409 Units/250ml 1/2 Normal Saline IV 14 units/kg/hr .[id number] ALIN 14.923 mls/hr Titration Protocol 12 UNITS/KG/HR Fentanyl Citrate 1,000 mcg in 100 mls @ 1 mls/hr 07/01/18 17:22 07/02/18 01:06 Fentanyl Citrate/Sodium Chloride 1 Mg/100 Ml IV 0 mcg/hr .Q24H PRN 0 mls/hr TITRATE PER MD ORDER Titration Protocol 10 MCG/HR Midazolam 100 mg/100ml in NS 100 mg in 100 mls @ 1 mls/hr 07/01/18 17:22 07/02/18 06:46 Midazolam 100 Mg/100ml In Ns IV 8 mg/hr .Q24H PRN 8 mls/hr Sedation Administration Protocol 1 MG/HR Dobutamine HCl/Dextrose 500 mg in 250 mls @ 15.853 mls/hr 07/01/18 17:32 07/02/18 06:47 Dobutamine/Dextrose 5% 500mg/250ml IV 5 mcg/kg/min .[id number] PRN 15.853 mls/hr TITRATE PER PROTOCOL Administration Protocol 5 MCG/KG/MIN Eptifibatide 75 mg in 100 mls @ 16.91 mls/hr 07/01/18 18:00 07/02/18 04:00 Integrilin IV 16.91 mls/hr .[id number] ALIN Administration Protocol 2 MCG/KG/MIN Sodium Chloride 1,000 mls @ 150 mls/hr 07/02/18 05:15 07/02/18 06:51 Sodium Chloride 0.9% IV 150 mls/hr .[id number] ALIN Administration Ampicillin Sodium/Sulbactam 100 mls @ 200 mls/hr 07/02/18 12:00 Sodium 3 gm/ Sodium Chloride IVPB 07/08/18 12:01 Q6 ALIN Protocol Lorazepam 2 mg 07/01/18 14:13 07/01/18 23:53 Ativan IVP 2 mg Q2H PRN Administration Anxiety Protocol Nicotine 1 patch 07/02/18 10:00 Nicoderm Cq TD DAILY ALIN Pantoprazole Sodium 40 mg 07/01/18 22:00 07/01/18 21:36 Protonix Inj IVP 40 mg Q12 ALIN Administration - Patient Studies Lab Studies: Lab Studies 07/02/18 07/02/18 07/02/18 Range/Units 05:10 05:00 05:00 WBC (4.5-11.0) 10^3/uL RBC (3.5-6.1) 10^6/uL Hgb (14.0-18.0) g/dL Hct (42.0-52.0) % MCV (80.0-105.0) fl MCH (25.0-35.0) pg MCHC (31.0-37.0) g/dl RDW (11.5-14.5) % Plt Count (120.0-450.0) 10^3/uL MPV (7.0-11.0) fl Neut % (Auto) (50.0-68.0) % Lymph % (Auto) (22.0-35.0) % [place] % (Auto) (1.0-6.0) % Eos % (Auto) (1.5-5.0) % Baso % (Auto) (0.0-3.0) % Lymph # (Auto) (1.2-3.4) [place] # (Auto) (0.1-0.6) Eos # (Auto) (0.0-0.7) Baso # (Auto) (0.0-2.0) K/mm3 Absolute Neuts (auto) (1.4-6.5) PT (9.4-12.5) SECONDS INR APTT 58.3 H (26.9-38.3) Seconds pCO2 37 (35-45) mm/Hg pO2 79.0 L (80-100) mm/Hg HCO3 24.0 (21-28) mmol/L ABG pH 7.42 (7.35-7.45) ABG Total CO2 25.1 (22-28) mmol.L ABG O2 Saturation 97.7 (95-98) % ABG O2 Content 18.5 (15-23) ML/dl ABG Base Excess -0.2 (-2.0-3.0) mmol/L ABG Hemoglobin 13.8 (11.7-17.4) g/dL ABG Carboxyhemoglobin 1.7 H (0.5-1.5) % POC ABG HHb (Measured) 2.2 (0-5) % ABG Methemoglobin 1.1 (0.0-3.0) % ABG O2 Capacity 18.9 (16-24) mL/dl ABG Potassium (3.6-5.2) mmol/L VBG pH (7.32-7.43) VBG pCO2 (40-60) VBG HCO3 (21-28) mmol/l VBG Total CO2 (22-28) mmol.L VBG O2 Sat (Calc) (40-65) % VBG Base Excess (0.0-2.0) mmol/L VBG Potassium (3.6-5.2) mmol/L Hgb O2 Saturation 94.9 L (95.0-98.0) % Glucose (75-110) mg/dl Lactate (0.7-2.1) mmol/L FiO2 40.0 % Crit Value Called To Crit Value Called By Blood Gas Notified Time Sodium 139 (132-148) mmol/L Potassium 3.8 (3.6-5.0) mmol/L Chloride 107 (98-107) mmol/L Carbon Dioxide 26 (21-33) mmol/L Anion Gap 10 (10-20) BUN 16 (7-21) mg/dL Creatinine 1.0 (0.8-1.5) mg/dl Est GFR ( Amer) > 60 Est GFR (Non-Af Amer) > 60 Random Glucose 105 (70-110) mg/dL Hemoglobin A1c (4.2-6.5) % Calcium 8.5 (8.4-10.5) mg/dL Phosphorus 2.5 (2.5-4.5) mg/dL Magnesium 1.7 (1.7-2.2) mg/dL Total Bilirubin 0.7 (0.2-1.3) mg/dL AST 485 H D (17-59) U/L ALT 180 H (7-56) U/L Alkaline Phosphatase 55 (38-126) U/L Lactate Dehydrogenase (333-699) U/L Total Creatine Kinase (35-230) U/L CK-MB (CK-2) (0.0-3.6) ng/mL CK-MB (CK-2) % (2.5-3.0) % Troponin I ng/mL Total Protein 6.5 (5.8-8.3) g/dL Albumin 3.8 (3.0-4.8) g/dL Globulin 2.7 gm/dL Albumin/Globulin Ratio 1.4 (1.1-1.8) Triglycerides 144 (35-160) mg/dL Cholesterol 175 (130-200) mg/dL LDL Cholesterol Direct 111 (0-129) mg/dL HDL Cholesterol 36 (29-60) mg/dL TSH 3rd Generation (0.46-4.68) mIU/mL Arterial Blood Potassium (3.6-5.2) mmol/L Venous Blood Potassium (3.6-5.2) mmol/L Urine Opiates Screen (NEGATIVE) Urine Methadone Screen (NEGATIVE) Ur Barbiturates Screen (NEGATIVE) Ur Phencyclidine Scrn (NEGATIVE) Ur Amphetamines Screen (NEGATIVE) U Benzodiazepines Scrn (NEGATIVE) U Oth Cocaine Metabols (NEGATIVE) U Cannabinoids Screen (NEGATIVE) Alcohol, Quantitative (0-10) mg/dL Hepatitis A IgM Ab (NEGATIVE) Hep Bs Antigen (NEGATIVE) Hep B Core IgM Ab (NEGATIVE) Hepatitis C Antibody (NEGATIVE) Blood Type Blood Type Confirm Antibody Screen BBK History Checked 07/02/18 07/02/18 07/01/18 Range/Units 05:00 01:50 22:14 WBC 11.5 H D (4.5-11.0) 10^3/uL RBC 4.35 (3.5-6.1) 10^6/uL Hgb 13.3 L (14.0-18.0) g/dL Hct 39.6 L (42.0-52.0) % MCV 91.0 (80.0-105.0) fl MCH 30.6 (25.0-35.0) pg MCHC 33.6 (31.0-37.0) g/dl RDW 14.1 (11.5-14.5) % Plt Count 179 (120.0-450.0) 10^3/uL MPV 10.0 (7.0-11.0) fl Neut % (Auto) 81.0 H (50.0-68.0) % Lymph % (Auto) 13.1 L (22.0-35.0) % [place] % (Auto) 5.8 (1.0-6.0) % Eos % (Auto) 0.0 L (1.5-5.0) % Baso % (Auto) 0.1 (0.0-3.0) % Lymph # (Auto) 1.5 (1.2-3.4) [place] # (Auto) 0.7 H (0.1-0.6) Eos # (Auto) 0.0 (0.0-0.7) Baso # (Auto) 0.01 (0.0-2.0) K/mm3 Absolute Neuts (auto) 9.31 H (1.4-6.5) PT (9.4-12.5) SECONDS INR APTT 43.1 H (26.9-38.3) Seconds pCO2 (35-45) mm/Hg pO2 (80-100) mm/Hg HCO3 (21-28) mmol/L ABG pH (7.35-7.45) ABG Total CO2 (22-28) mmol.L ABG O2 Saturation (95-98) % ABG O2 Content (15-23) ML/dl ABG Base Excess (-2.0-3.0) mmol/L ABG Hemoglobin (11.7-17.4) g/dL ABG Carboxyhemoglobin (0.5-1.5) % POC ABG HHb (Measured) (0-5) % ABG Methemoglobin (0.0-3.0) % ABG O2 Capacity (16-24) mL/dl ABG Potassium (3.6-5.2) mmol/L VBG pH (7.32-7.43) VBG pCO2 (40-60) VBG HCO3 (21-28) mmol/l VBG Total CO2 (22-28) mmol.L VBG O2 Sat (Calc) (40-65) % VBG Base Excess (0.0-2.0) mmol/L VBG Potassium (3.6-5.2) mmol/L Hgb O2 Saturation (95.0-98.0) % Glucose (75-110) mg/dl Lactate (0.7-2.1) mmol/L FiO2 % Crit Value Called To Crit Value Called By Blood Gas Notified Time Sodium (132-148) mmol/L Potassium (3.6-5.0) mmol/L Chloride (98-107) mmol/L Carbon Dioxide (21-33) mmol/L Anion Gap (10-20) BUN (7-21) mg/dL Creatinine (0.8-1.5) mg/dl Est GFR ( Amer) Est GFR (Non-Af Amer) Random Glucose (70-110) mg/dL Hemoglobin A1c (4.2-6.5) % Calcium (8.4-10.5) mg/dL Phosphorus (2.5-4.5) mg/dL Magnesium (1.7-2.2) mg/dL Total Bilirubin (0.2-1.3) mg/dL AST (17-59) U/L ALT (7-56) U/L Alkaline Phosphatase (38-126) U/L Lactate Dehydrogenase (333-699) U/L Total Creatine Kinase (35-230) U/L CK-MB (CK-2) (0.0-3.6) ng/mL CK-MB (CK-2) % (2.5-3.0) % Troponin I ng/mL Total Protein (5.8-8.3) g/dL Albumin (3.0-4.8) g/dL Globulin gm/dL Albumin/Globulin Ratio (1.1-1.8) Triglycerides (35-160) mg/dL Cholesterol (130-200) mg/dL LDL Cholesterol Direct (0-129) mg/dL HDL Cholesterol (29-60) mg/dL TSH 3rd Generation (0.46-4.68) mIU/mL Arterial Blood Potassium (3.6-5.2) mmol/L Venous Blood Potassium (3.6-5.2) mmol/L Urine Opiates Screen Negative (NEGATIVE) Urine Methadone Screen Negative (NEGATIVE) Ur Barbiturates Screen Negative (NEGATIVE) Ur Phencyclidine Scrn Negative (NEGATIVE) Ur Amphetamines Screen Positive H (NEGATIVE) U Benzodiazepines Scrn Positive H (NEGATIVE) U Oth Cocaine Metabols Negative (NEGATIVE) U Cannabinoids Screen Negative (NEGATIVE) Alcohol, Quantitative (0-10) mg/dL Hepatitis A IgM Ab (NEGATIVE) Hep Bs Antigen (NEGATIVE) Hep B Core IgM Ab (NEGATIVE) Hepatitis C Antibody (NEGATIVE) Blood Type Blood Type Confirm Antibody Screen BBK History Checked 07/01/18 07/01/18 07/01/18 Range/Units 19:50 19:20 18:30 WBC (4.5-11.0) 10^3/uL RBC (3.5-6.1) 10^6/uL Hgb (14.0-18.0) g/dL Hct (42.0-52.0) % MCV (80.0-105.0) fl MCH (25.0-35.0) pg MCHC (31.0-37.0) g/dl RDW (11.5-14.5) % Plt Count (120.0-450.0) 10^3/uL MPV (7.0-11.0) fl Neut % (Auto) (50.0-68.0) % Lymph % (Auto) (22.0-35.0) % [place] % (Auto) (1.0-6.0) % Eos % (Auto) (1.5-5.0) % Baso % (Auto) (0.0-3.0) % Lymph # (Auto) (1.2-3.4) [place] # (Auto) (0.1-0.6) Eos # (Auto) (0.0-0.7) Baso # (Auto) (0.0-2.0) K/mm3 Absolute Neuts (auto) (1.4-6.5) PT (9.4-12.5) SECONDS INR APTT (26.9-38.3) Seconds pCO2 (35-45) mm/Hg pO2 157 H (80-100) mm/Hg HCO3 (21-28) mmol/L ABG pH (7.35-7.45) ABG Total CO2 (22-28) mmol.L ABG O2 Saturation (95-98) % ABG O2 Content (15-23) ML/dl ABG Base Excess (-2.0-3.0) mmol/L ABG Hemoglobin (11.7-17.4) g/dL ABG Carboxyhemoglobin (0.5-1.5) % POC ABG HHb (Measured) (0-5) % ABG Methemoglobin (0.0-3.0) % ABG O2 Capacity (16-24) mL/dl ABG Potassium (3.6-5.2) mmol/L VBG pH 7.30 L (7.32-7.43) VBG pCO2 44.0 (40-60) VBG HCO3 21.6 (21-28) mmol/l VBG Total CO2 23.0 (22-28) mmol.L VBG O2 Sat (Calc) 99.7 H (40-65) % VBG Base Excess -4.8 L (0.0-2.0) mmol/L VBG Potassium 5.0 (3.6-5.2) mmol/L Hgb O2 Saturation (95.0-98.0) % Glucose 167 H (75-110) mg/dl Lactate 4.1 H* (0.7-2.1) mmol/L FiO2 21.0 % Crit Value Called To Misbah herrera Crit Value Called By Blood Gas Notified Time 1930 Sodium 135.0 (132-148) mmol/L Potassium (3.6-5.0) mmol/L Chloride 103.0 (98-107) mmol/L Carbon Dioxide (21-33) mmol/L Anion Gap (10-20) BUN (7-21) mg/dL Creatinine (0.8-1.5) mg/dl Est GFR ( Amer) Est GFR (Non-Af Amer) Random Glucose (70-110) mg/dL Hemoglobin A1c (4.2-6.5) % Calcium (8.4-10.5) mg/dL Phosphorus (2.5-4.5) mg/dL Magnesium (1.7-2.2) mg/dL Total Bilirubin (0.2-1.3) mg/dL AST (17-59) U/L ALT (7-56) U/L Alkaline Phosphatase (38-126) U/L Lactate Dehydrogenase (333-699) U/L Total Creatine Kinase (35-230) U/L CK-MB (CK-2) (0.0-3.6) ng/mL CK-MB (CK-2) % (2.5-3.0) % Troponin I ng/mL Total Protein (5.8-8.3) g/dL Albumin (3.0-4.8) g/dL Globulin gm/dL Albumin/Globulin Ratio (1.1-1.8) Triglycerides (35-160) mg/dL Cholesterol (130-200) mg/dL LDL Cholesterol Direct (0-129) mg/dL HDL Cholesterol (29-60) mg/dL TSH 3rd Generation (0.46-4.68) mIU/mL Arterial Blood Potassium (3.6-5.2) mmol/L Venous Blood Potassium 5.0 (3.6-5.2) mmol/L Urine Opiates Screen (NEGATIVE) Urine Methadone Screen (NEGATIVE) Ur Barbiturates Screen (NEGATIVE) Ur Phencyclidine Scrn (NEGATIVE) Ur Amphetamines Screen (NEGATIVE) U Benzodiazepines Scrn (NEGATIVE) U Oth Cocaine Metabols (NEGATIVE) U Cannabinoids Screen (NEGATIVE) Alcohol, Quantitative (0-10) mg/dL Hepatitis A IgM Ab (NEGATIVE) Hep Bs Antigen (NEGATIVE) Hep B Core IgM Ab (NEGATIVE) Hepatitis C Antibody (NEGATIVE) Blood Type O POSITIVE Blood Type Confirm O POSITIVE Antibody Screen Negative BBK History Checked No verified bt 07/01/18 07/01/18 07/01/18 Range/Units 18:20 18:20 18:20 WBC 15.5 H D (4.5-11.0) 10^3/uL RBC 4.65 (3.5-6.1) 10^6/uL Hgb 14.4 (14.0-18.0) g/dL Hct 42.6 (42.0-52.0) % MCV 91.6 (80.0-105.0) fl MCH 31.0 (25.0-35.0) pg MCHC 33.8 (31.0-37.0) g/dl RDW 14.0 (11.5-14.5) % Plt Count 176 (120.0-450.0) 10^3/uL MPV 10.1 (7.0-11.0) fl Neut % (Auto) 89.7 H (50.0-68.0) % Lymph % (Auto) 7.8 L (22.0-35.0) % [place] % (Auto) 2.4 (1.0-6.0) % Eos % (Auto) 0.0 L (1.5-5.0) % Baso % (Auto) 0.1 (0.0-3.0) % Lymph # (Auto) 1.2 (1.2-3.4) [place] # (Auto) 0.4 (0.1-0.6) Eos # (Auto) 0.0 (0.0-0.7) Baso # (Auto) 0.01 (0.0-2.0) K/mm3 Absolute Neuts (auto) 13.87 H (1.4-6.5) PT (9.4-12.5) SECONDS INR APTT (26.9-38.3) Seconds pCO2 (35-45) mm/Hg pO2 (80-100) mm/Hg HCO3 (21-28) mmol/L ABG pH (7.35-7.45) ABG Total CO2 (22-28) mmol.L ABG O2 Saturation (95-98) % ABG O2 Content (15-23) ML/dl ABG Base Excess (-2.0-3.0) mmol/L ABG Hemoglobin (11.7-17.4) g/dL ABG Carboxyhemoglobin (0.5-1.5) % POC ABG HHb (Measured) (0-5) % ABG Methemoglobin (0.0-3.0) % ABG O2 Capacity (16-24) mL/dl ABG Potassium (3.6-5.2) mmol/L VBG pH (7.32-7.43) VBG pCO2 (40-60) VBG HCO3 (21-28) mmol/l VBG Total CO2 (22-28) mmol.L VBG O2 Sat (Calc) (40-65) % VBG Base Excess (0.0-2.0) mmol/L VBG Potassium (3.6-5.2) mmol/L Hgb O2 Saturation (95.0-98.0) % Glucose (75-110) mg/dl Lactate (0.7-2.1) mmol/L FiO2 % Crit Value Called To Crit Value Called By Blood Gas Notified Time Sodium (132-148) mmol/L Potassium (3.6-5.0) mmol/L Chloride (98-107) mmol/L Carbon Dioxide (21-33) mmol/L Anion Gap (10-20) BUN (7-21) mg/dL Creatinine (0.8-1.5) mg/dl Est GFR ( Amer) Est GFR (Non-Af Amer) Random Glucose (70-110) mg/dL Hemoglobin A1c 5.5 (4.2-6.5) % Calcium (8.4-10.5) mg/dL Phosphorus (2.5-4.5) mg/dL Magnesium (1.7-2.2) mg/dL Total Bilirubin (0.2-1.3) mg/dL AST (17-59) U/L ALT (7-56) U/L Alkaline Phosphatase (38-126) U/L Lactate Dehydrogenase (333-699) U/L Total Creatine Kinase (35-230) U/L CK-MB (CK-2) (0.0-3.6) ng/mL CK-MB (CK-2) % (2.5-3.0) % Troponin I ng/mL Total Protein (5.8-8.3) g/dL Albumin (3.0-4.8) g/dL Globulin gm/dL Albumin/Globulin Ratio (1.1-1.8) Triglycerides (35-160) mg/dL Cholesterol (130-200) mg/dL LDL Cholesterol Direct (0-129) mg/dL HDL Cholesterol (29-60) mg/dL TSH 3rd Generation 2.25 (0.46-4.68) mIU/mL Arterial Blood Potassium (3.6-5.2) mmol/L Venous Blood Potassium (3.6-5.2) mmol/L Urine Opiates Screen (NEGATIVE) Urine Methadone Screen (NEGATIVE) Ur Barbiturates Screen (NEGATIVE) Ur Phencyclidine Scrn (NEGATIVE) Ur Amphetamines Screen (NEGATIVE) U Benzodiazepines Scrn (NEGATIVE) U Oth Cocaine Metabols (NEGATIVE) U Cannabinoids Screen (NEGATIVE) Alcohol, Quantitative (0-10) mg/dL Hepatitis A IgM Ab (NEGATIVE) Hep Bs Antigen (NEGATIVE) Hep B Core IgM Ab (NEGATIVE) Hepatitis C Antibody (NEGATIVE) Blood Type Blood Type Confirm Antibody Screen BBK History Checked 07/01/18 07/01/18 07/01/18 Range/Units 18:20 18:10 16:10 WBC (4.5-11.0) 10^3/uL RBC (3.5-6.1) 10^6/uL Hgb (14.0-18.0) g/dL Hct (42.0-52.0) % MCV (80.0-105.0) fl MCH (25.0-35.0) pg MCHC (31.0-37.0) g/dl RDW (11.5-14.5) % Plt Count (120.0-450.0) 10^3/uL MPV (7.0-11.0) fl Neut % (Auto) (50.0-68.0) % Lymph % (Auto) (22.0-35.0) % [place] % (Auto) (1.0-6.0) % Eos % (Auto) (1.5-5.0) % Baso % (Auto) (0.0-3.0) % Lymph # (Auto) (1.2-3.4) [place] # (Auto) (0.1-0.6) Eos # (Auto) (0.0-0.7) Baso # (Auto) (0.0-2.0) K/mm3 Absolute Neuts (auto) (1.4-6.5) PT (9.4-12.5) SECONDS INR APTT (26.9-38.3) Seconds pCO2 41 40 (35-45) mm/Hg pO2 110.0 H 114.0 H (80-100) mm/Hg HCO3 21.1 14.9 L (21-28) mmol/L ABG pH 7.32 L 7.18 L* (7.35-7.45) ABG Total CO2 22.4 16.1 L (22-28) mmol.L ABG O2 Saturation 99.1 H 98.8 H (95-98) % ABG O2 Content (15-23) ML/dl ABG Base Excess -4.8 L -12.9 L (-2.0-3.0) mmol/L ABG Hemoglobin (11.7-17.4) g/dL ABG Carboxyhemoglobin (0.5-1.5) % POC ABG HHb (Measured) (0-5) % ABG Methemoglobin (0.0-3.0) % ABG O2 Capacity (16-24) mL/dl ABG Potassium 4.0 4.7 (3.6-5.2) mmol/L VBG pH (7.32-7.43) VBG pCO2 (40-60) VBG HCO3 (21-28) mmol/l VBG Total CO2 (22-28) mmol.L VBG O2 Sat (Calc) (40-65) % VBG Base Excess (0.0-2.0) mmol/L VBG Potassium (3.6-5.2) mmol/L Hgb O2 Saturation (95.0-98.0) % Glucose 166 H 281 H (75-110) mg/dl Lactate 3.1 H 8.3 H* (0.7-2.1) mmol/L FiO2 40.0 40.0 % Crit Value Called To Dr. [email or web address] Crit Value Called By Ritchie Dugan Blood Gas Notified Time 181 1620 Sodium 137 136.0 134.0 (132-148) mmol/L Potassium 4.4 (3.6-5.0) mmol/L Chloride 104 104.0 98.0 (98-107) mmol/L Carbon Dioxide 21 (21-33) mmol/L Anion Gap 15 (10-20) BUN 20 (7-21) mg/dL Creatinine 1.0 (0.8-1.5) mg/dl Est GFR ( Amer) > 60 Est GFR (Non-Af Amer) > 60 Random Glucose 161 H (70-110) mg/dL Hemoglobin A1c (4.2-6.5) % Calcium 8.9 (8.4-10.5) mg/dL Phosphorus 2.5 (2.5-4.5) mg/dL Magnesium 1.9 (1.7-2.2) mg/dL Total Bilirubin 0.9 (0.2-1.3) mg/dL AST 306 H D (17-59) U/L ALT 201 H (7-56) U/L Alkaline Phosphatase 51 (38-126) U/L Lactate Dehydrogenase (333-699) U/L Total Creatine Kinase (35-230) U/L CK-MB (CK-2) (0.0-3.6) ng/mL CK-MB (CK-2) % (2.5-3.0) % Troponin I ng/mL Total Protein 7.0 (5.8-8.3) g/dL Albumin 4.1 (3.0-4.8) g/dL Globulin 2.9 gm/dL Albumin/Globulin Ratio 1.4 (1.1-1.8) Triglycerides 132 (35-160) mg/dL Cholesterol 187 (130-200) mg/dL LDL Cholesterol Direct 119 (0-129) mg/dL HDL Cholesterol 34 (29-60) mg/dL TSH 3rd Generation (0.46-4.68) mIU/mL Arterial Blood Potassium 4.0 4.7 (3.6-5.2) mmol/L Venous Blood Potassium (3.6-5.2) mmol/L Urine Opiates Screen (NEGATIVE) Urine Methadone Screen (NEGATIVE) Ur Barbiturates Screen (NEGATIVE) Ur Phencyclidine Scrn (NEGATIVE) Ur Amphetamines Screen (NEGATIVE) U Benzodiazepines Scrn (NEGATIVE) U Oth Cocaine Metabols (NEGATIVE) U Cannabinoids Screen (NEGATIVE) Alcohol, Quantitative (0-10) mg/dL Hepatitis A IgM Ab (NEGATIVE) Hep Bs Antigen (NEGATIVE) Hep B Core IgM Ab (NEGATIVE) Hepatitis C Antibody (NEGATIVE) Blood Type Blood Type Confirm Antibody Screen BBK History Checked 07/01/18 07/01/18 07/01/18 Range/Units 14:30 11:30 11:00 WBC (4.5-11.0) 10^3/uL RBC (3.5-6.1) 10^6/uL Hgb (14.0-18.0) g/dL Hct (42.0-52.0) % MCV (80.0-105.0) fl MCH (25.0-35.0) pg MCHC (31.0-37.0) g/dl RDW (11.5-14.5) % Plt Count (120.0-450.0) 10^3/uL MPV (7.0-11.0) fl Neut % (Auto) (50.0-68.0) % Lymph % (Auto) (22.0-35.0) % [place] % (Auto) (1.0-6.0) % Eos % (Auto) (1.5-5.0) % Baso % (Auto) (0.0-3.0) % Lymph # (Auto) (1.2-3.4) [place] # (Auto) (0.1-0.6) Eos # (Auto) (0.0-0.7) Baso # (Auto) (0.0-2.0) K/mm3 Absolute Neuts (auto) (1.4-6.5) PT 11.3 (9.4-12.5) SECONDS INR 1.02 APTT 29.4 (26.9-38.3) Seconds pCO2 (35-45) mm/Hg pO2 (80-100) mm/Hg HCO3 (21-28) mmol/L ABG pH (7.35-7.45) ABG Total CO2 (22-28) mmol.L ABG O2 Saturation (95-98) % ABG O2 Content (15-23) ML/dl ABG Base Excess (-2.0-3.0) mmol/L ABG Hemoglobin (11.7-17.4) g/dL ABG Carboxyhemoglobin (0.5-1.5) % POC ABG HHb (Measured) (0-5) % ABG Methemoglobin (0.0-3.0) % ABG O2 Capacity (16-24) mL/dl ABG Potassium (3.6-5.2) mmol/L VBG pH (7.32-7.43) VBG pCO2 (40-60) VBG HCO3 (21-28) mmol/l VBG Total CO2 (22-28) mmol.L VBG O2 Sat (Calc) (40-65) % VBG Base Excess (0.0-2.0) mmol/L VBG Potassium (3.6-5.2) mmol/L Hgb O2 Saturation (95.0-98.0) % Glucose (75-110) mg/dl Lactate (0.7-2.1) mmol/L FiO2 % Crit Value Called To Crit Value Called By Blood Gas Notified Time Sodium (132-148) mmol/L Potassium (3.6-5.0) mmol/L Chloride (98-107) mmol/L Carbon Dioxide (21-33) mmol/L Anion Gap (10-20) BUN (7-21) mg/dL Creatinine (0.8-1.5) mg/dl Est GFR ( Amer) Est GFR (Non-Af Amer) Random Glucose (70-110) mg/dL Hemoglobin A1c (4.2-6.5) % Calcium (8.4-10.5) mg/dL Phosphorus (2.5-4.5) mg/dL Magnesium (1.7-2.2) mg/dL Total Bilirubin (0.2-1.3) mg/dL AST (17-59) U/L ALT (7-56) U/L Alkaline Phosphatase (38-126) U/L Lactate Dehydrogenase (333-699) U/L Total Creatine Kinase (35-230) U/L CK-MB (CK-2) (0.0-3.6) ng/mL CK-MB (CK-2) % (2.5-3.0) % Troponin I ng/mL Total Protein (5.8-8.3) g/dL Albumin (3.0-4.8) g/dL Globulin gm/dL Albumin/Globulin Ratio (1.1-1.8) Triglycerides (35-160) mg/dL Cholesterol (130-200) mg/dL LDL Cholesterol Direct (0-129) mg/dL HDL Cholesterol (29-60) mg/dL TSH 3rd Generation (0.46-4.68) mIU/mL Arterial Blood Potassium (3.6-5.2) mmol/L Venous Blood Potassium (3.6-5.2) mmol/L Urine Opiates Screen (NEGATIVE) Urine Methadone Screen (NEGATIVE) Ur Barbiturates Screen (NEGATIVE) Ur Phencyclidine Scrn (NEGATIVE) Ur Amphetamines Screen (NEGATIVE) U Benzodiazepines Scrn (NEGATIVE) U Oth Cocaine Metabols (NEGATIVE) U Cannabinoids Screen (NEGATIVE) Alcohol, Quantitative < 10 (0-10) mg/dL Hepatitis A IgM Ab Negative (NEGATIVE) Hep Bs Antigen Negative (NEGATIVE) Hep B Core IgM Ab Negative (NEGATIVE) Hepatitis C Antibody Negative (NEGATIVE) Blood Type Blood Type Confirm Antibody Screen BBK History Checked 03/20/19 03/20/19 Range/Units 11:00 11:00 WBC 10.7 (4.5-11.0) 10^3/uL RBC 4.92 (3.5-6.1) 10^6/uL Hgb 15.5 (14.0-18.0) g/dL Hct 45.3 (42.0-52.0) % MCV 92.1 (80.0-105.0) fl MCH 31.5 (25.0-35.0) pg MCHC 34.2 (31.0-37.0) g/dl RDW 13.9 (11.5-14.5) % Plt Count 223 (120.0-450.0) 10^3/uL MPV 10.7 (7.0-11.0) fl Neut % (Auto) 87.9 H (50.0-68.0) % Lymph % (Auto) 7.5 L (22.0-35.0) % [place] % (Auto) 4.4 (1.0-6.0) % Eos % (Auto) 0.1 L (1.5-5.0) % Baso % (Auto) 0.1 (0.0-3.0) % Lymph # (Auto) 0.8 L (1.2-3.4) [place] # (Auto) 0.5 (0.1-0.6) Eos # (Auto) 0.0 (0.0-0.7) Baso # (Auto) 0.01 (0.0-2.0) K/mm3 Absolute Neuts (auto) 9.44 H (1.4-6.5) PT (9.4-12.5) SECONDS INR APTT (26.9-38.3) Seconds pCO2 (35-45) mm/Hg pO2 (80-100) mm/Hg HCO3 (21-28) mmol/L ABG pH (7.35-7.45) ABG Total CO2 (22-28) mmol.L ABG O2 Saturation (95-98) % ABG O2 Content (15-23) ML/dl ABG Base Excess (-2.0-3.0) mmol/L ABG Hemoglobin (11.7-17.4) g/dL ABG Carboxyhemoglobin (0.5-1.5) % POC ABG HHb (Measured) (0-5) % ABG Methemoglobin (0.0-3.0) % ABG O2 Capacity (16-24) mL/dl ABG Potassium (3.6-5.2) mmol/L VBG pH (7.32-7.43) VBG pCO2 (40-60) VBG HCO3 (21-28) mmol/l VBG Total CO2 (22-28) mmol.L VBG O2 Sat (Calc) (40-65) % VBG Base Excess (0.0-2.0) mmol/L VBG Potassium (3.6-5.2) mmol/L Hgb O2 Saturation (95.0-98.0) % Glucose (75-110) mg/dl Lactate (0.7-2.1) mmol/L FiO2 % Crit Value Called To Crit Value Called By Blood Gas Notified Time Sodium 138 (132-148) mmol/L Potassium 5.6 H* (3.6-5.0) mmol/L Chloride 100 (98-107) mmol/L Carbon Dioxide 28 (21-33) mmol/L Anion Gap 14 (10-20) BUN 16 (7-21) mg/dL Creatinine 0.9 (0.8-1.5) mg/dl Est GFR ( Amer) > 60 Est GFR (Non-Af Amer) > 60 Random Glucose 151 H (70-110) mg/dL Hemoglobin A1c (4.2-6.5) % Calcium 9.4 (8.4-10.5) mg/dL Phosphorus (2.5-4.5) mg/dL Magnesium 1.8 (1.7-2.2) mg/dL Total Bilirubin 0.6 (0.2-1.3) mg/dL AST 144 H D (17-59) U/L ALT 132 H (7-56) U/L Alkaline Phosphatase 65 (38-126) U/L Lactate Dehydrogenase 712 H (333-699) U/L Total Creatine Kinase 560 H (35-230) U/L CK-MB (CK-2) 38.3 H (0.0-3.6) ng/mL CK-MB (CK-2) % 6.8 H (2.5-3.0) % Troponin I 1.43 H* D ng/mL Total Protein 8.0 (5.8-8.3) g/dL Albumin 4.9 H (3.0-4.8) g/dL Globulin 3.1 gm/dL Albumin/Globulin Ratio 1.6 (1.1-1.8) Triglycerides (35-160) mg/dL Cholesterol (130-200) mg/dL LDL Cholesterol Direct (0-129) mg/dL HDL Cholesterol (29-60) mg/dL TSH 3rd Generation (0.46-4.68) mIU/mL Arterial Blood Potassium (3.6-5.2) mmol/L Venous Blood Potassium (3.6-5.2) mmol/L Urine Opiates Screen (NEGATIVE) Urine Methadone Screen (NEGATIVE) Ur Barbiturates Screen (NEGATIVE) Ur Phencyclidine Scrn (NEGATIVE) Ur Amphetamines Screen (NEGATIVE) U Benzodiazepines Scrn (NEGATIVE) U Oth Cocaine Metabols (NEGATIVE) U Cannabinoids Screen (NEGATIVE) Alcohol, Quantitative (0-10) mg/dL Hepatitis A IgM Ab (NEGATIVE) Hep Bs Antigen (NEGATIVE) Hep B Core IgM Ab (NEGATIVE) Hepatitis C Antibody (NEGATIVE) Blood Type Blood Type Confirm Antibody Screen BBK History Checked Laboratory Results - last 24 hr 07/01/18 07/01/18 07/01/18 11:00 11:00 11:00 WBC 10.7 RBC 4.92 Hgb 15.5 Hct 45.3 MCV 92.1 MCH 31.5 MCHC 34.2 RDW 13.9 Plt Count 223 MPV 10.7 Neut % (Auto) 87.9 H Lymph % (Auto) 7.5 L [place] % (Auto) 4.4 Eos % (Auto) 0.1 L Baso % (Auto) 0.1 Lymph # (Auto) 0.8 L [place] # (Auto) 0.5 Eos # (Auto) 0.0 Baso # (Auto) 0.01 Absolute Neuts (auto) 9.44 H PT INR APTT pCO2 pO2 HCO3 ABG pH ABG Total CO2 ABG O2 Saturation ABG O2 Content ABG Base Excess ABG Hemoglobin ABG Carboxyhemoglobin POC ABG HHb (Measured) ABG Methemoglobin ABG O2 Capacity ABG Potassium VBG pH VBG pCO2 VBG HCO3 VBG Total CO2 VBG O2 Sat (Calc) VBG Base Excess VBG Potassium Hgb O2 Saturation Glucose Lactate FiO2 Crit Value Called To Crit Value Called By Blood Gas Notified Time Sodium 138 Potassium 5.6 H* Chloride 100 Carbon Dioxide 28 Anion Gap 14 BUN 16 Creatinine 0.9 Est GFR ( Amer) > 60 Est GFR (Non-Af Amer) > 60 Random Glucose 151 H Hemoglobin A1c Calcium 9.4 Phosphorus Magnesium 1.8 Total Bilirubin 0.6 AST 144 H D ALT 132 H Alkaline Phosphatase 65 Lactate Dehydrogenase 712 H Total Creatine Kinase 560 H CK-MB (CK-2) 38.3 H CK-MB (CK-2) % 6.8 H Troponin I 1.43 H* D Total Protein 8.0 Albumin 4.9 H Globulin 3.1 Albumin/Globulin Ratio 1.6 Triglycerides Cholesterol LDL Cholesterol Direct HDL Cholesterol TSH 3rd Generation Arterial Blood Potassium Venous Blood Potassium Urine Opiates Screen Urine Methadone Screen Ur Barbiturates Screen Ur Phencyclidine Scrn Ur Amphetamines Screen U Benzodiazepines Scrn U Oth Cocaine Metabols U Cannabinoids Screen Alcohol, Quantitative < 10 Hepatitis A IgM Ab Hep Bs Antigen Hep B Core IgM Ab Hepatitis C Antibody Blood Type Blood Type Confirm Antibody Screen BBK History Checked 07/01/18 07/01/18 07/01/18 11:30 14:30 16:10 WBC RBC Hgb Hct MCV MCH MCHC RDW Plt Count MPV Neut % (Auto) Lymph % (Auto) [place] % (Auto) Eos % (Auto) Baso % (Auto) Lymph # (Auto) [place] # (Auto) Eos # (Auto) Baso # (Auto) Absolute Neuts (auto) PT 11.3 INR 1.02 APTT 29.4 pCO2 40 pO2 114.0 H HCO3 14.9 L ABG pH 7.18 L* ABG Total CO2 16.1 L ABG O2 Saturation 98.8 H ABG O2 Content ABG Base Excess -12.9 L ABG Hemoglobin ABG Carboxyhemoglobin POC ABG HHb (Measured) ABG Methemoglobin ABG O2 Capacity ABG Potassium 4.7 VBG pH VBG pCO2 VBG HCO3 VBG Total CO2 VBG O2 Sat (Calc) VBG Base Excess VBG Potassium Hgb O2 Saturation Glucose 281 H Lactate 8.3 H* FiO2 40.0 Crit Value Called To Crit Value Called By Ritchie Blood Gas Notified Time 1620 Sodium 134.0 Potassium Chloride 98.0 Carbon Dioxide Anion Gap BUN Creatinine Est GFR ( Amer) Est GFR (Non-Af Amer) Random Glucose Hemoglobin A1c Calcium Phosphorus Magnesium Total Bilirubin AST ALT Alkaline Phosphatase Lactate Dehydrogenase Total Creatine Kinase CK-MB (CK-2) CK-MB (CK-2) % Troponin I Total Protein Albumin Globulin Albumin/Globulin Ratio Triglycerides Cholesterol LDL Cholesterol Direct HDL Cholesterol TSH 3rd Generation Arterial Blood Potassium 4.7 Venous Blood Potassium Urine Opiates Screen Urine Methadone Screen Ur Barbiturates Screen Ur Phencyclidine Scrn Ur Amphetamines Screen U Benzodiazepines Scrn U Oth Cocaine Metabols U Cannabinoids Screen Alcohol, Quantitative Hepatitis A IgM Ab Negative Hep Bs Antigen Negative Hep B Core IgM Ab Negative Hepatitis C Antibody Negative Blood Type Blood Type Confirm Antibody Screen BBK History Checked 07/01/18 07/01/18 07/01/18 18:10 18:20 18:20 WBC RBC Hgb Hct MCV MCH MCHC RDW Plt Count MPV Neut % (Auto) Lymph % (Auto) [place] % (Auto) Eos % (Auto) Baso % (Auto) Lymph # (Auto) [place] # (Auto) Eos # (Auto) Baso # (Auto) Absolute Neuts (auto) PT INR APTT pCO2 41 pO2 110.0 H HCO3 21.1 ABG pH 7.32 L ABG Total CO2 22.4 ABG O2 Saturation 99.1 H ABG O2 Content ABG Base Excess -4.8 L ABG Hemoglobin ABG Carboxyhemoglobin POC ABG HHb (Measured) ABG Methemoglobin ABG O2 Capacity ABG Potassium 4.0 VBG pH VBG pCO2 VBG HCO3 VBG Total CO2 VBG O2 Sat (Calc) VBG Base Excess VBG Potassium Hgb O2 Saturation Glucose 166 H Lactate 3.1 H FiO2 40.0 Crit Value Called To Dr. [email or web address] Crit Value Called By Ritchie Blood Gas Notified Time 1813 Sodium 136.0 137 Potassium 4.4 Chloride 104.0 104 Carbon Dioxide 21 Anion Gap 15 BUN 20 Creatinine 1.0 Est GFR ( Amer) > 60 Est GFR (Non-Af Amer) > 60 Random Glucose 161 H Hemoglobin A1c 5.5 Calcium 8.9 Phosphorus 2.5 Magnesium 1.9 Total Bilirubin 0.9 AST 306 H D ALT 201 H Alkaline Phosphatase 51 Lactate Dehydrogenase Total Creatine Kinase CK-MB (CK-2) CK-MB (CK-2) % Troponin I Total Protein 7.0 Albumin 4.1 Globulin 2.9 Albumin/Globulin Ratio 1.4 Triglycerides 132 Cholesterol 187 LDL Cholesterol Direct 119 HDL Cholesterol 34 TSH 3rd Generation Arterial Blood Potassium 4.0 Venous Blood Potassium Urine Opiates Screen Urine Methadone Screen Ur Barbiturates Screen Ur Phencyclidine Scrn Ur Amphetamines Screen U Benzodiazepines Scrn U Oth Cocaine Metabols U Cannabinoids Screen Alcohol, Quantitative Hepatitis A IgM Ab Hep Bs Antigen Hep B Core IgM Ab Hepatitis C Antibody Blood Type Blood Type Confirm Antibody Screen BBK History Checked 07/01/18 07/01/18 07/01/18 18:20 18:20 18:30 WBC 15.5 H D RBC 4.65 Hgb 14.4 Hct 42.6 MCV 91.6 MCH 31.0 MCHC 33.8 RDW 14.0 Plt Count 176 MPV 10.1 Neut % (Auto) 89.7 H Lymph % (Auto) 7.8 L [place] % (Auto) 2.4 Eos % (Auto) 0.0 L Baso % (Auto) 0.1 Lymph # (Auto) 1.2 [place] # (Auto) 0.4 Eos # (Auto) 0.0 Baso # (Auto) 0.01 Absolute Neuts (auto) 13.87 H PT INR APTT pCO2 pO2 HCO3 ABG pH ABG Total CO2 ABG O2 Saturation ABG O2 Content ABG Base Excess ABG Hemoglobin ABG Carboxyhemoglobin POC ABG HHb (Measured) ABG Methemoglobin ABG O2 Capacity ABG Potassium VBG pH VBG pCO2 VBG HCO3 VBG Total CO2 VBG O2 Sat (Calc) VBG Base Excess VBG Potassium Hgb O2 Saturation Glucose Lactate FiO2 Crit Value Called To Crit Value Called By Blood Gas Notified Time Sodium Potassium Chloride Carbon Dioxide Anion Gap BUN Creatinine Est GFR ( Amer) Est GFR (Non-Af Amer) Random Glucose Hemoglobin A1c Calcium Phosphorus Magnesium Total Bilirubin AST ALT Alkaline Phosphatase Lactate Dehydrogenase Total Creatine Kinase CK-MB (CK-2) CK-MB (CK-2) % Troponin I Total Protein Albumin Globulin Albumin/Globulin Ratio Triglycerides Cholesterol LDL Cholesterol Direct HDL Cholesterol TSH 3rd Generation 2.25 Arterial Blood Potassium Venous Blood Potassium Urine Opiates Screen Urine Methadone Screen Ur Barbiturates Screen Ur Phencyclidine Scrn Ur Amphetamines Screen U Benzodiazepines Scrn U Oth Cocaine Metabols U Cannabinoids Screen Alcohol, Quantitative Hepatitis A IgM Ab Hep Bs Antigen Hep B Core IgM Ab Hepatitis C Antibody Blood Type O POSITIVE Blood Type Confirm Antibody Screen Negative BBK History Checked No verified bt 07/01/18 07/01/18 07/01/18 19:20 19:50 22:14 WBC RBC Hgb Hct MCV MCH MCHC RDW Plt Count MPV Neut % (Auto) Lymph % (Auto) [place] % (Auto) Eos % (Auto) Baso % (Auto) Lymph # (Auto) [place] # (Auto) Eos # (Auto) Baso # (Auto) Absolute Neuts (auto) PT INR APTT 43.1 H pCO2 pO2 157 H HCO3 ABG pH ABG Total CO2 ABG O2 Saturation ABG O2 Content ABG Base Excess ABG Hemoglobin ABG Carboxyhemoglobin POC ABG HHb (Measured) ABG Methemoglobin ABG O2 Capacity ABG Potassium VBG pH 7.30 L VBG pCO2 44.0 VBG HCO3 21.6 VBG Total CO2 23.0 VBG O2 Sat (Calc) 99.7 H VBG Base Excess -4.8 L VBG Potassium 5.0 Hgb O2 Saturation Glucose 167 H Lactate 4.1 H* FiO2 21.0 Crit Value Called To Misbah herrera Crit Value Called By Blood Gas Notified Time 1930 Sodium 135.0 Potassium Chloride 103.0 Carbon Dioxide Anion Gap BUN Creatinine Est GFR ( Amer) Est GFR (Non-Af Amer) Random Glucose Hemoglobin A1c Calcium Phosphorus Magnesium Total Bilirubin AST ALT Alkaline Phosphatase Lactate Dehydrogenase Total Creatine Kinase CK-MB (CK-2) CK-MB (CK-2) % Troponin I Total Protein Albumin Globulin Albumin/Globulin Ratio Triglycerides Cholesterol LDL Cholesterol Direct HDL Cholesterol TSH 3rd Generation Arterial Blood Potassium Venous Blood Potassium 5.0 Urine Opiates Screen Urine Methadone Screen Ur Barbiturates Screen Ur Phencyclidine Scrn Ur Amphetamines Screen U Benzodiazepines Scrn U Oth Cocaine Metabols U Cannabinoids Screen Alcohol, Quantitative Hepatitis A IgM Ab Hep Bs Antigen Hep B Core IgM Ab Hepatitis C Antibody Blood Type Blood Type Confirm O POSITIVE Antibody Screen BBK History Checked 07/02/18 07/02/18 07/02/18 01:50 05:00 05:00 WBC 11.5 H D RBC 4.35 Hgb 13.3 L Hct 39.6 L MCV 91.0 MCH 30.6 MCHC 33.6 RDW 14.1 Plt Count 179 MPV 10.0 Neut % (Auto) 81.0 H Lymph % (Auto) 13.1 L [place] % (Auto) 5.8 Eos % (Auto) 0.0 L Baso % (Auto) 0.1 Lymph # (Auto) 1.5 [place] # (Auto) 0.7 H Eos # (Auto) 0.0 Baso # (Auto) 0.01 Absolute Neuts (auto) 9.31 H PT INR APTT pCO2 pO2 HCO3 ABG pH ABG Total CO2 ABG O2 Saturation ABG O2 Content ABG Base Excess ABG Hemoglobin ABG Carboxyhemoglobin POC ABG HHb (Measured) ABG Methemoglobin ABG O2 Capacity ABG Potassium VBG pH VBG pCO2 VBG HCO3 VBG Total CO2 VBG O2 Sat (Calc) VBG Base Excess VBG Potassium Hgb O2 Saturation Glucose Lactate FiO2 Crit Value Called To Crit Value Called By Blood Gas Notified Time Sodium 139 Potassium 3.8 Chloride 107 Carbon Dioxide 26 Anion Gap 10 BUN 16 Creatinine 1.0 Est GFR ( Amer) > 60 Est GFR (Non-Af Amer) > 60 Random Glucose 105 Hemoglobin A1c Calcium 8.5 Phosphorus 2.5 Magnesium 1.7 Total Bilirubin 0.7 AST 485 H D ALT 180 H Alkaline Phosphatase 55 Lactate Dehydrogenase Total Creatine Kinase CK-MB (CK-2) CK-MB (CK-2) % Troponin I Total Protein 6.5 Albumin 3.8 Globulin 2.7 Albumin/Globulin Ratio 1.4 Triglycerides 144 Cholesterol 175 LDL Cholesterol Direct 111 HDL Cholesterol 36 TSH 3rd Generation Arterial Blood Potassium Venous Blood Potassium Urine Opiates Screen Negative Urine Methadone Screen Negative Ur Barbiturates Screen Negative Ur Phencyclidine Scrn Negative Ur Amphetamines Screen Positive H U Benzodiazepines Scrn Positive H U Oth Cocaine Metabols Negative U Cannabinoids Screen Negative Alcohol, Quantitative Hepatitis A IgM Ab Hep Bs Antigen Hep B Core IgM Ab Hepatitis C Antibody Blood Type Blood Type Confirm Antibody Screen BBK History Checked 07/02/18 07/02/18 05:00 05:10 WBC RBC Hgb Hct MCV MCH MCHC RDW Plt Count MPV Neut % (Auto) Lymph % (Auto) [place] % (Auto) Eos % (Auto) Baso % (Auto) Lymph # (Auto) [place] # (Auto) Eos # (Auto) Baso # (Auto) Absolute Neuts (auto) PT INR APTT 58.3 H pCO2 37 pO2 79.0 L HCO3 24.0 ABG pH 7.42 ABG Total CO2 25.1 ABG O2 Saturation 97.7 ABG O2 Content 18.5 ABG Base Excess -0.2 ABG Hemoglobin 13.8 ABG Carboxyhemoglobin 1.7 H POC ABG HHb (Measured) 2.2 ABG Methemoglobin 1.1 ABG O2 Capacity 18.9 ABG Potassium VBG pH VBG pCO2 VBG HCO3 VBG Total CO2 VBG O2 Sat (Calc) VBG Base Excess VBG Potassium Hgb O2 Saturation 94.9 L Glucose Lactate FiO2 40.0 Crit Value Called To Crit Value Called By Blood Gas Notified Time Sodium Potassium Chloride Carbon Dioxide Anion Gap BUN Creatinine Est GFR ( Amer) Est GFR (Non-Af Amer) Random Glucose Hemoglobin A1c Calcium Phosphorus Magnesium Total Bilirubin AST ALT Alkaline Phosphatase Lactate Dehydrogenase Total Creatine Kinase CK-MB (CK-2) CK-MB (CK-2) % Troponin I Total Protein Albumin Globulin Albumin/Globulin Ratio Triglycerides Cholesterol LDL Cholesterol Direct HDL Cholesterol TSH 3rd Generation Arterial Blood Potassium Venous Blood Potassium Urine Opiates Screen Urine Methadone Screen Ur Barbiturates Screen Ur Phencyclidine Scrn Ur Amphetamines Screen U Benzodiazepines Scrn U Oth Cocaine Metabols U Cannabinoids Screen Alcohol, Quantitative Hepatitis A IgM Ab Hep Bs Antigen Hep B Core IgM Ab Hepatitis C Antibody Blood Type Blood Type Confirm Antibody Screen BBK History Checked Radiology Impressions: Radiology Impressions Chest X-Ray 07/01/18 10:41 IMPRESSION: No active disease. Head CT 07/01/18 13:27 IMPRESSION: No acute intracranial findings EKG/Cardiology Studies: Cardiology / EKG Studies 07/01/18 10:14 EKG [ELECTROCARDIOGRAM] Stat Comment: Reason For Exam: CHEST PAIN 07/01/18 12:21 EKG [ELECTROCARDIOGRAM] Stat Comment: Reason For Exam: CHEST PAIN 07/01/18 16:31 ELECTROCARDIOGRAM Urgent Comment: 12 lead EKG upon arrival in unit Reason For Exam: post ptca 07/02/18 06:00 ELECTROCARDIOGRAM DAILY Comment: Reason For Exam: NSTEMI 07/02/18 16:45 ELECTROCARDIOGRAM DAILY Comment: Reason For Exam: chest pain Review of Systems - Review of Systems Systems not reviewed;Unavailable: Altered Mental Status Critical Care Progress Note - Ventilator Checklist Head of Bed 30 Degrees: Yes Daily Sedation Vacation: Yes Daily Assessment of Readiness to Wean: Yes Daily Spontaneous Breathing Trial: Yes PUD Prophalyxis: Yes DVT Prophylaxis: Yes Oral Care with Chlorhexidine Gluconate {CHG}: Yes - Vent Settings MODE:: PRVC - Extremities/Vascular Does the Patient have a Orosco Catheter?: Yes Does the Patient need a Orosco Catheter?: Yes - Restraints Justification for Restraints: High risk for self extubation, High risk for removing IV access - Prophylaxis GI Prophylaxis GI: PPI - Nutrition Nutrition: Nutrition Category Date Time Status Heart Healthy Diet [DIET] Diets 07/01/18 Breakfast Active Assessment/Plan - Assessment and Plan (Free Text) Assessment: 53 y/o male admitted to ICU s/p cardiac arrest with subsequent PCI with RCA stent place. Intubated, sedated Plan: Cardio: -normotensive, tachycadic -dobutamine decreased to 2.5 -started asa, lipitor, effient -heparin, integrilin stopped -d/c IVF -maintain MAP>65 -f/u echo -cardiology following Dr Jorge Mcfarlane: -continue PRVC 450/18/5/40 -vent weaning trial, mouth hygeine, DVT/GI ppx, head elevation 30 degree, sedation vacation -maintain O2>92% GI: -elevated LFT -patient alcoholic, obese -f/u U/S abdomen Renal: -replete lytes as needed -maintain euvolemia, euglycemia ID: -febrile 102.7 -f/u cx blood, sputum -f/u procal, strep A, flu a/b -started zosyn Heme: -Hb stable 9.2 -continue monitoring Prophylaxis: GI ppx Protonix q12 DVT SCD Continue ICU management Full code Case reviewed and plan discussed with attending physician Dr Willis <Brendon Willis - Last Filed: 07/02/18 13:18> CCU Objective - Vital Signs / Intake & Output Vital Signs (Last 4 hours): Vital Signs Temp Pulse BP Pulse Ox 07/02/18 12:52 102.7 F H 123 H 134/80 93 L 07/02/18 12:50 102.7 F H 123 H 130/80 93 L 07/02/18 12:48 102.7 F H 122 H 130/81 93 L 07/02/18 12:46 102.7 F H 123 H 135/81 93 L 07/02/18 12:44 102.7 F H 124 H 129/79 93 L 07/02/18 12:42 102.7 F H 124 H 127/77 93 L 07/02/18 12:40 102.7 F H 125 H 129/77 93 L 07/02/18 12:38 102.7 F H 125 H 130/75 94 L 07/02/18 12:36 102.7 F H 125 H 133/73 96 07/02/18 12:34 102.7 F H 126 H 153/123 H 96 07/02/18 12:32 102.7 F H 130 H 136/98 H 94 L 07/02/18 12:30 102.7 F H 130 H 152/85 H 97 07/02/18 12:29 102.7 F H 128 H 140/75 95 07/02/18 12:27 102.7 F H 126 H 140/100 H 95 07/02/18 12:24 102.7 F H 129 H 141/82 95 07/02/18 12:22 102.7 F H 128 H 141/89 94 L 07/02/18 12:20 102.7 F H 127 H 152/83 H 95 07/02/18 12:18 102.6 F H 126 H 149/79 95 07/02/18 12:16 102.6 F H 127 H 151/85 H 96 07/02/18 12:14 102.2 F H 126 H 146/87 96 07/02/18 12:12 74.1 F L 127 H 157/92 H 98 07/02/18 12:10 72.1 F L 124 H 144/83 99 07/02/18 12:08 124 H 152/87 H 99 07/02/18 12:06 123 H 153/91 H 99 07/02/18 12:04 121 H 145/91 H 96 07/02/18 11:45 99.7 F H 07/02/18 11:40 119 H 07/02/18 11:14 112 H 133/79 98 07/02/18 11:12 112 H 133/81 98 07/02/18 11:10 112 H 134/81 99 07/02/18 11:08 112 H 132/78 98 07/02/18 11:05 132/78 07/02/18 11:04 112 H 131/78 97 07/02/18 11:02 113 H 135/74 97 07/02/18 11:00 114 H 135/81 98 07/02/18 10:58 116 H 138/80 98 07/02/18 10:56 115 H 142/81 98 07/02/18 10:54 115 H 141/84 98 07/02/18 10:52 116 H 141/81 97 07/02/18 10:50 116 H 140/78 97 07/02/18 10:48 116 H 135/80 97 07/02/18 10:46 117 H 132/77 97 07/02/18 10:44 117 H 135/77 97 07/02/18 10:42 115 H 132/80 97 07/02/18 10:40 114 H 132/78 97 07/02/18 10:38 113 H 135/76 98 07/02/18 10:36 114 H 133/71 97 07/02/18 10:34 114 H 128/78 96 07/02/18 10:32 114 H 125/78 96 07/02/18 10:30 114 H 122/72 96 07/02/18 10:28 114 H 127/74 95 07/02/18 10:26 114 H 119/70 95 07/02/18 10:01 119 H 07/02/18 09:30 97 H Intake and Output (Last 8hrs): Intake & Output 07/01/18 07/02/18 07/02/18 22:59 06:59 14:59 Intake Total 294 2694 189 Output Total 690 700 Balance -396 1994 189 Weight 232 lb Intake: IV 294 2694 189 Dobutamine 192 Heparin 172 Left Hand 200 Right Antecubital 1800 fentanyl 30 integrilin 192 Output: Urine 690 700 Urethral (Orosco) 690 700 Stool 0 - Medications Active Medications: Active Medications Generic Name Dose Route Start Last Admin Trade Name Freq PRN Reason Stop Dose Admin Albuterol/Ipratropium 3 ml 07/01/18 17:28 Duoneb 3 Mg/0.5 Mg (3 Ml) Ud IH Q2H PRN Shortness of Breath Aspirin 81 mg 07/02/18 10:30 07/02/18 10:40 Ecotrin PO 81 mg DAILY ALIN Administration Atorvastatin Calcium 40 mg 07/02/18 17:00 Lipitor PO DIN ALIN Heparin Sodium/Sodium Chloride 25,000 units in 250 mls @ 12.791 mls/hr 07/01/18 13:30 07/02/18 08:14 Heparin 16419 Units/250ml 1/2 Normal Saline IV 0 units/kg/hr .[id number] ALIN 0 mls/hr Titration Protocol 12 UNITS/KG/HR Dobutamine HCl/Dextrose 500 mg in 250 mls @ 7.927 mls/hr 07/02/18 10:14 07/02/18 10:26 Dobutamine/Dextrose 5% 500mg/250ml IV 2.5 mcg/kg/min .Q24H PRN 7.927 mls/hr TITRATE PER PROTOCOL Administration Protocol 2.5 MCG/KG/MIN Piperacillin Sod/Tazobactam Sod 100 mls @ 25 mls/hr 07/02/18 14:00 07/02/18 13:04 Zosyn 3.375 In Ns 100ml IVPB 07/03/18 01:59 25 mls/hr Q8 ALIN Administration Protocol Lorazepam 2 mg 07/01/18 14:13 07/01/18 23:53 Ativan IVP 2 mg Q2H PRN Administration Anxiety Protocol Nicotine 1 patch 07/02/18 10:00 07/02/18 09:18 Nicoderm Cq TD 1 patch DAILY ALIN Administration Pantoprazole Sodium 40 mg 07/01/18 22:00 07/02/18 09:19 Protonix Inj IVP 40 mg Q12 ALIN Administration Prasugrel 10 mg 07/02/18 10:30 07/02/18 10:40 Effient PO 10 mg DAILY ALIN Administration - Patient Studies Lab Studies: Lab Studies 07/02/18 07/02/18 07/02/18 Range/Units 11:15 11:15 06:44 WBC (4.5-11.0) 10^3/uL RBC (3.5-6.1) 10^6/uL Hgb (14.0-18.0) g/dL Hct (42.0-52.0) % MCV (80.0-105.0) fl MCH (25.0-35.0) pg MCHC (31.0-37.0) g/dl RDW (11.5-14.5) % Plt Count (120.0-450.0) 10^3/uL MPV (7.0-11.0) fl Neut % (Auto) (50.0-68.0) % Lymph % (Auto) (22.0-35.0) % [place] % (Auto) (1.0-6.0) % Eos % (Auto) (1.5-5.0) % Baso % (Auto) (0.0-3.0) % Lymph # (Auto) (1.2-3.4) [place] # (Auto) (0.1-0.6) Eos # (Auto) (0.0-0.7) Baso # (Auto) (0.0-2.0) K/mm3 Absolute Neuts (auto) (1.4-6.5) PT (9.4-12.5) SECONDS INR APTT 30.1 (26.9-38.3) Seconds pCO2 (35-45) mm/Hg pO2 (80-100) mm/Hg HCO3 (21-28) mmol/L ABG pH (7.35-7.45) ABG Total CO2 (22-28) mmol.L ABG O2 Saturation (95-98) % ABG O2 Content (15-23) ML/dl ABG Base Excess (-2.0-3.0) mmol/L ABG Hemoglobin (11.7-17.4) g/dL ABG Carboxyhemoglobin (0.5-1.5) % POC ABG HHb (Measured) (0-5) % ABG Methemoglobin (0.0-3.0) % ABG O2 Capacity (16-24) mL/dl ABG Potassium (3.6-5.2) mmol/L VBG pH (7.32-7.43) VBG pCO2 (40-60) VBG HCO3 (21-28) mmol/l VBG Total CO2 (22-28) mmol.L VBG O2 Sat (Calc) (40-65) % VBG Base Excess (0.0-2.0) mmol/L VBG Potassium (3.6-5.2) mmol/L Hgb O2 Saturation (95.0-98.0) % Sodium (132-148) mmol/L Chloride (98-107) mmol/L Glucose (75-110) mg/dl Lactate (0.7-2.1) mmol/L FiO2 % Crit Value Called To Crit Value Called By Blood Gas Notified Time Potassium (3.6-5.0) mmol/L Carbon Dioxide (21-33) mmol/L Anion Gap (10-20) BUN (7-21) mg/dL Creatinine (0.8-1.5) mg/dl Est GFR ( Amer) Est GFR (Non-Af Amer) POC Glucose (mg/dL) 105 (65-110) mg/dL Random Glucose (70-110) mg/dL Hemoglobin A1c (4.2-6.5) % Calcium (8.4-10.5) mg/dL Phosphorus (2.5-4.5) mg/dL Magnesium (1.7-2.2) mg/dL Total Bilirubin (0.2-1.3) mg/dL AST (17-59) U/L ALT (7-56) U/L Alkaline Phosphatase (38-126) U/L Total Creatine Kinase 7571 H (35-230) U/L Total Protein (5.8-8.3) g/dL Albumin (3.0-4.8) g/dL Globulin gm/dL Albumin/Globulin Ratio (1.1-1.8) Triglycerides (35-160) mg/dL Cholesterol (130-200) mg/dL LDL Cholesterol Direct (0-129) mg/dL HDL Cholesterol (29-60) mg/dL TSH 3rd Generation (0.46-4.68) mIU/mL Arterial Blood Potassium (3.6-5.2) mmol/L Venous Blood Potassium (3.6-5.2) mmol/L Urine Opiates Screen (NEGATIVE) Urine Methadone Screen (NEGATIVE) Ur Barbiturates Screen (NEGATIVE) Ur Phencyclidine Scrn (NEGATIVE) Ur Amphetamines Screen (NEGATIVE) U Benzodiazepines Scrn (NEGATIVE) U Oth Cocaine Metabols (NEGATIVE) U Cannabinoids Screen (NEGATIVE) Alcohol, Quantitative (0-10) mg/dL Hepatitis A IgM Ab (NEGATIVE) Hep Bs Antigen (NEGATIVE) Hep B Core IgM Ab (NEGATIVE) Hepatitis C Antibody (NEGATIVE) Blood Type Blood Type Confirm Antibody Screen BBK History Checked 07/02/18 07/02/18 07/02/18 Range/Units 05:10 05:00 05:00 WBC (4.5-11.0) 10^3/uL RBC (3.5-6.1) 10^6/uL Hgb (14.0-18.0) g/dL Hct (42.0-52.0) % MCV (80.0-105.0) fl MCH (25.0-35.0) pg MCHC (31.0-37.0) g/dl RDW (11.5-14.5) % Plt Count (120.0-450.0) 10^3/uL MPV (7.0-11.0) fl Neut % (Auto) (50.0-68.0) % Lymph % (Auto) (22.0-35.0) % [place] % (Auto) (1.0-6.0) % Eos % (Auto) (1.5-5.0) % Baso % (Auto) (0.0-3.0) % Lymph # (Auto) (1.2-3.4) [place] # (Auto) (0.1-0.6) Eos # (Auto) (0.0-0.7) Baso # (Auto) (0.0-2.0) K/mm3 Absolute Neuts (auto) (1.4-6.5) PT (9.4-12.5) SECONDS INR APTT 58.3 H (26.9-38.3) Seconds pCO2 37 (35-45) mm/Hg pO2 79.0 L (80-100) mm/Hg HCO3 24.0 (21-28) mmol/L ABG pH 7.42 (7.35-7.45) ABG Total CO2 25.1 (22-28) mmol.L ABG O2 Saturation 97.7 (95-98) % ABG O2 Content 18.5 (15-23) ML/dl ABG Base Excess -0.2 (-2.0-3.0) mmol/L ABG Hemoglobin 13.8 (11.7-17.4) g/dL ABG Carboxyhemoglobin 1.7 H (0.5-1.5) % POC ABG HHb (Measured) 2.2 (0-5) % ABG Methemoglobin 1.1 (0.0-3.0) % ABG O2 Capacity 18.9 (16-24) mL/dl ABG Potassium (3.6-5.2) mmol/L VBG pH (7.32-7.43) VBG pCO2 (40-60) VBG HCO3 (21-28) mmol/l VBG Total CO2 (22-28) mmol.L VBG O2 Sat (Calc) (40-65) % VBG Base Excess (0.0-2.0) mmol/L VBG Potassium (3.6-5.2) mmol/L Hgb O2 Saturation 94.9 L (95.0-98.0) % Sodium (132-148) mmol/L Chloride (98-107) mmol/L Glucose (75-110) mg/dl Lactate (0.7-2.1) mmol/L FiO2 40.0 % Crit Value Called To Crit Value Called By Blood Gas Notified Time Potassium (3.6-5.0) mmol/L Carbon Dioxide (21-33) mmol/L Anion Gap (10-20) BUN (7-21) mg/dL Creatinine (0.8-1.5) mg/dl Est GFR ( Amer) Est GFR (Non-Af Amer) POC Glucose (mg/dL) (65-110) mg/dL Random Glucose (70-110) mg/dL Hemoglobin A1c (4.2-6.5) % Calcium (8.4-10.5) mg/dL Phosphorus (2.5-4.5) mg/dL Magnesium (1.7-2.2) mg/dL Total Bilirubin (0.2-1.3) mg/dL AST (17-59) U/L ALT (7-56) U/L Alkaline Phosphatase (38-126) U/L Total Creatine Kinase (35-230) U/L Total Protein (5.8-8.3) g/dL Albumin (3.0-4.8) g/dL Globulin gm/dL Albumin/Globulin Ratio (1.1-1.8) Triglycerides (35-160) mg/dL Cholesterol (130-200) mg/dL LDL Cholesterol Direct (0-129) mg/dL HDL Cholesterol (29-60) mg/dL TSH 3rd Generation 0.55 (0.46-4.68) mIU/mL Arterial Blood Potassium (3.6-5.2) mmol/L Venous Blood Potassium (3.6-5.2) mmol/L Urine Opiates Screen (NEGATIVE) Urine Methadone Screen (NEGATIVE) Ur Barbiturates Screen (NEGATIVE) Ur Phencyclidine Scrn (NEGATIVE) Ur Amphetamines Screen (NEGATIVE) U Benzodiazepines Scrn (NEGATIVE) U Oth Cocaine Metabols (NEGATIVE) U Cannabinoids Screen (NEGATIVE) Alcohol, Quantitative (0-10) mg/dL Hepatitis A IgM Ab (NEGATIVE) Hep Bs Antigen (NEGATIVE) Hep B Core IgM Ab (NEGATIVE) Hepatitis C Antibody (NEGATIVE) Blood Type Blood Type Confirm Antibody Screen BBK History Checked 07/02/18 07/02/18 07/02/18 Range/Units 05:00 05:00 05:00 WBC 11.5 H D (4.5-11.0) 10^3/uL RBC 4.35 (3.5-6.1) 10^6/uL Hgb 13.3 L (14.0-18.0) g/dL Hct 39.6 L (42.0-52.0) % MCV 91.0 (80.0-105.0) fl MCH 30.6 (25.0-35.0) pg MCHC 33.6 (31.0-37.0) g/dl RDW 14.1 (11.5-14.5) % Plt Count 179 (120.0-450.0) 10^3/uL MPV 10.0 (7.0-11.0) fl Neut % (Auto) 81.0 H (50.0-68.0) % Lymph % (Auto) 13.1 L (22.0-35.0) % [place] % (Auto) 5.8 (1.0-6.0) % Eos % (Auto) 0.0 L (1.5-5.0) % Baso % (Auto) 0.1 (0.0-3.0) % Lymph # (Auto) 1.5 (1.2-3.4) [place] # (Auto) 0.7 H (0.1-0.6) Eos # (Auto) 0.0 (0.0-0.7) Baso # (Auto) 0.01 (0.0-2.0) K/mm3 Absolute Neuts (auto) 9.31 H (1.4-6.5) PT (9.4-12.5) SECONDS INR APTT (26.9-38.3) Seconds pCO2 (35-45) mm/Hg pO2 (80-100) mm/Hg HCO3 (21-28) mmol/L ABG pH (7.35-7.45) ABG Total CO2 (22-28) mmol.L ABG O2 Saturation (95-98) % ABG O2 Content (15-23) ML/dl ABG Base Excess (-2.0-3.0) mmol/L ABG Hemoglobin (11.7-17.4) g/dL ABG Carboxyhemoglobin (0.5-1.5) % POC ABG HHb (Measured) (0-5) % ABG Methemoglobin (0.0-3.0) % ABG O2 Capacity (16-24) mL/dl ABG Potassium (3.6-5.2) mmol/L VBG pH (7.32-7.43) VBG pCO2 (40-60) VBG HCO3 (21-28) mmol/l VBG Total CO2 (22-28) mmol.L VBG O2 Sat (Calc) (40-65) % VBG Base Excess (0.0-2.0) mmol/L VBG Potassium (3.6-5.2) mmol/L Hgb O2 Saturation (95.0-98.0) % Sodium 139 (132-148) mmol/L Chloride 107 (98-107) mmol/L Glucose (75-110) mg/dl Lactate (0.7-2.1) mmol/L FiO2 % Crit Value Called To Crit Value Called By Blood Gas Notified Time Potassium 3.8 (3.6-5.0) mmol/L Carbon Dioxide 26 (21-33) mmol/L Anion Gap 10 (10-20) BUN 16 (7-21) mg/dL Creatinine 1.0 (0.8-1.5) mg/dl Est GFR ( Amer) > 60 Est GFR (Non-Af Amer) > 60 POC Glucose (mg/dL) (65-110) mg/dL Random Glucose 105 (70-110) mg/dL Hemoglobin A1c 5.5 (4.2-6.5) % Calcium 8.5 (8.4-10.5) mg/dL Phosphorus 2.5 (2.5-4.5) mg/dL Magnesium 1.7 (1.7-2.2) mg/dL Total Bilirubin 0.7 (0.2-1.3) mg/dL AST 485 H D (17-59) U/L ALT 180 H (7-56) U/L Alkaline Phosphatase 55 (38-126) U/L Total Creatine Kinase (35-230) U/L Total Protein 6.5 (5.8-8.3) g/dL Albumin 3.8 (3.0-4.8) g/dL Globulin 2.7 gm/dL Albumin/Globulin Ratio 1.4 (1.1-1.8) Triglycerides 144 (35-160) mg/dL Cholesterol 175 (130-200) mg/dL LDL Cholesterol Direct 111 (0-129) mg/dL HDL Cholesterol 36 (29-60) mg/dL TSH 3rd Generation (0.46-4.68) mIU/mL Arterial Blood Potassium (3.6-5.2) mmol/L Venous Blood Potassium (3.6-5.2) mmol/L Urine Opiates Screen (NEGATIVE) Urine Methadone Screen (NEGATIVE) Ur Barbiturates Screen (NEGATIVE) Ur Phencyclidine Scrn (NEGATIVE) Ur Amphetamines Screen (NEGATIVE) U Benzodiazepines Scrn (NEGATIVE) U Oth Cocaine Metabols (NEGATIVE) U Cannabinoids Screen (NEGATIVE) Alcohol, Quantitative (0-10) mg/dL Hepatitis A IgM Ab (NEGATIVE) Hep Bs Antigen (NEGATIVE) Hep B Core IgM Ab (NEGATIVE) Hepatitis C Antibody (NEGATIVE) Blood Type Blood Type Confirm Antibody Screen BBK History Checked 07/02/18 07/01/18 07/01/18 Range/Units 01:50 22:14 19:50 WBC (4.5-11.0) 10^3/uL RBC (3.5-6.1) 10^6/uL Hgb (14.0-18.0) g/dL Hct (42.0-52.0) % MCV (80.0-105.0) fl MCH (25.0-35.0) pg MCHC (31.0-37.0) g/dl RDW (11.5-14.5) % Plt Count (120.0-450.0) 10^3/uL MPV (7.0-11.0) fl Neut % (Auto) (50.0-68.0) % Lymph % (Auto) (22.0-35.0) % [place] % (Auto) (1.0-6.0) % Eos % (Auto) (1.5-5.0) % Baso % (Auto) (0.0-3.0) % Lymph # (Auto) (1.2-3.4) [place] # (Auto) (0.1-0.6) Eos # (Auto) (0.0-0.7) Baso # (Auto) (0.0-2.0) K/mm3 Absolute Neuts (auto) (1.4-6.5) PT (9.4-12.5) SECONDS INR APTT 43.1 H (26.9-38.3) Seconds pCO2 (35-45) mm/Hg pO2 (80-100) mm/Hg HCO3 (21-28) mmol/L ABG pH (7.35-7.45) ABG Total CO2 (22-28) mmol.L ABG O2 Saturation (95-98) % ABG O2 Content (15-23) ML/dl ABG Base Excess (-2.0-3.0) mmol/L ABG Hemoglobin (11.7-17.4) g/dL ABG Carboxyhemoglobin (0.5-1.5) % POC ABG HHb (Measured) (0-5) % ABG Methemoglobin (0.0-3.0) % ABG O2 Capacity (16-24) mL/dl ABG Potassium (3.6-5.2) mmol/L VBG pH (7.32-7.43) VBG pCO2 (40-60) VBG HCO3 (21-28) mmol/l VBG Total CO2 (22-28) mmol.L VBG O2 Sat (Calc) (40-65) % VBG Base Excess (0.0-2.0) mmol/L VBG Potassium (3.6-5.2) mmol/L Hgb O2 Saturation (95.0-98.0) % Sodium (132-148) mmol/L Chloride (98-107) mmol/L Glucose (75-110) mg/dl Lactate (0.7-2.1) mmol/L FiO2 % Crit Value Called To Crit Value Called By Blood Gas Notified Time Potassium (3.6-5.0) mmol/L Carbon Dioxide (21-33) mmol/L Anion Gap (10-20) BUN (7-21) mg/dL Creatinine (0.8-1.5) mg/dl Est GFR ( Amer) Est GFR (Non-Af Amer) POC Glucose (mg/dL) (65-110) mg/dL Random Glucose (70-110) mg/dL Hemoglobin A1c (4.2-6.5) % Calcium (8.4-10.5) mg/dL Phosphorus (2.5-4.5) mg/dL Magnesium (1.7-2.2) mg/dL Total Bilirubin (0.2-1.3) mg/dL AST (17-59) U/L ALT (7-56) U/L Alkaline Phosphatase (38-126) U/L Total Creatine Kinase (35-230) U/L Total Protein (5.8-8.3) g/dL Albumin (3.0-4.8) g/dL Globulin gm/dL Albumin/Globulin Ratio (1.1-1.8) Triglycerides (35-160) mg/dL Cholesterol (130-200) mg/dL LDL Cholesterol Direct (0-129) mg/dL HDL Cholesterol (29-60) mg/dL TSH 3rd Generation (0.46-4.68) mIU/mL Arterial Blood Potassium (3.6-5.2) mmol/L Venous Blood Potassium (3.6-5.2) mmol/L Urine Opiates Screen Negative (NEGATIVE) Urine Methadone Screen Negative (NEGATIVE) Ur Barbiturates Screen Negative (NEGATIVE) Ur Phencyclidine Scrn Negative (NEGATIVE) Ur Amphetamines Screen Positive H (NEGATIVE) U Benzodiazepines Scrn Positive H (NEGATIVE) U Oth Cocaine Metabols Negative (NEGATIVE) U Cannabinoids Screen Negative (NEGATIVE) Alcohol, Quantitative (0-10) mg/dL Hepatitis A IgM Ab (NEGATIVE) Hep Bs Antigen (NEGATIVE) Hep B Core IgM Ab (NEGATIVE) Hepatitis C Antibody (NEGATIVE) Blood Type Blood Type Confirm O POSITIVE Antibody Screen BBK History Checked 07/01/18 07/01/18 07/01/18 Range/Units 19:20 18:30 18:20 WBC 15.5 H D (4.5-11.0) 10^3/uL RBC 4.65 (3.5-6.1) 10^6/uL Hgb 14.4 (14.0-18.0) g/dL Hct 42.6 (42.0-52.0) % MCV 91.6 (80.0-105.0) fl MCH 31.0 (25.0-35.0) pg MCHC 33.8 (31.0-37.0) g/dl RDW 14.0 (11.5-14.5) % Plt Count 176 (120.0-450.0) 10^3/uL MPV 10.1 (7.0-11.0) fl Neut % (Auto) 89.7 H (50.0-68.0) % Lymph % (Auto) 7.8 L (22.0-35.0) % [place] % (Auto) 2.4 (1.0-6.0) % Eos % (Auto) 0.0 L (1.5-5.0) % Baso % (Auto) 0.1 (0.0-3.0) % Lymph # (Auto) 1.2 (1.2-3.4) [place] # (Auto) 0.4 (0.1-0.6) Eos # (Auto) 0.0 (0.0-0.7) Baso # (Auto) 0.01 (0.0-2.0) K/mm3 Absolute Neuts (auto) 13.87 H (1.4-6.5) PT (9.4-12.5) SECONDS INR APTT (26.9-38.3) Seconds pCO2 (35-45) mm/Hg pO2 157 H (80-100) mm/Hg HCO3 (21-28) mmol/L ABG pH (7.35-7.45) ABG Total CO2 (22-28) mmol.L ABG O2 Saturation (95-98) % ABG O2 Content (15-23) ML/dl ABG Base Excess (-2.0-3.0) mmol/L ABG Hemoglobin (11.7-17.4) g/dL ABG Carboxyhemoglobin (0.5-1.5) % POC ABG HHb (Measured) (0-5) % ABG Methemoglobin (0.0-3.0) % ABG O2 Capacity (16-24) mL/dl ABG Potassium (3.6-5.2) mmol/L VBG pH 7.30 L (7.32-7.43) VBG pCO2 44.0 (40-60) VBG HCO3 21.6 (21-28) mmol/l VBG Total CO2 23.0 (22-28) mmol.L VBG O2 Sat (Calc) 99.7 H (40-65) % VBG Base Excess -4.8 L (0.0-2.0) mmol/L VBG Potassium 5.0 (3.6-5.2) mmol/L Hgb O2 Saturation (95.0-98.0) % Sodium 135.0 (132-148) mmol/L Chloride 103.0 (98-107) mmol/L Glucose 167 H (75-110) mg/dl Lactate 4.1 H* (0.7-2.1) mmol/L FiO2 21.0 % Crit Value Called To Misbah herrera Crit Value Called By Blood Gas Notified Time 1930 Potassium (3.6-5.0) mmol/L Carbon Dioxide (21-33) mmol/L Anion Gap (10-20) BUN (7-21) mg/dL Creatinine (0.8-1.5) mg/dl Est GFR ( Amer) Est GFR (Non-Af Amer) POC Glucose (mg/dL) (65-110) mg/dL Random Glucose (70-110) mg/dL Hemoglobin A1c (4.2-6.5) % Calcium (8.4-10.5) mg/dL Phosphorus (2.5-4.5) mg/dL Magnesium (1.7-2.2) mg/dL Total Bilirubin (0.2-1.3) mg/dL AST (17-59) U/L ALT (7-56) U/L Alkaline Phosphatase (38-126) U/L Total Creatine Kinase (35-230) U/L Total Protein (5.8-8.3) g/dL Albumin (3.0-4.8) g/dL Globulin gm/dL Albumin/Globulin Ratio (1.1-1.8) Triglycerides (35-160) mg/dL Cholesterol (130-200) mg/dL LDL Cholesterol Direct (0-129) mg/dL HDL Cholesterol (29-60) mg/dL TSH 3rd Generation (0.46-4.68) mIU/mL Arterial Blood Potassium (3.6-5.2) mmol/L Venous Blood Potassium 5.0 (3.6-5.2) mmol/L Urine Opiates Screen (NEGATIVE) Urine Methadone Screen (NEGATIVE) Ur Barbiturates Screen (NEGATIVE) Ur Phencyclidine Scrn (NEGATIVE) Ur Amphetamines Screen (NEGATIVE) U Benzodiazepines Scrn (NEGATIVE) U Oth Cocaine Metabols (NEGATIVE) U Cannabinoids Screen (NEGATIVE) Alcohol, Quantitative (0-10) mg/dL Hepatitis A IgM Ab (NEGATIVE) Hep Bs Antigen (NEGATIVE) Hep B Core IgM Ab (NEGATIVE) Hepatitis C Antibody (NEGATIVE) Blood Type O POSITIVE Blood Type Confirm Antibody Screen Negative BBK History Checked No verified bt 07/01/18 07/01/18 07/01/18 Range/Units 18:20 18:20 18:20 WBC (4.5-11.0) 10^3/uL RBC (3.5-6.1) 10^6/uL Hgb (14.0-18.0) g/dL Hct (42.0-52.0) % MCV (80.0-105.0) fl MCH (25.0-35.0) pg MCHC (31.0-37.0) g/dl RDW (11.5-14.5) % Plt Count (120.0-450.0) 10^3/uL MPV (7.0-11.0) fl Neut % (Auto) (50.0-68.0) % Lymph % (Auto) (22.0-35.0) % [place] % (Auto) (1.0-6.0) % Eos % (Auto) (1.5-5.0) % Baso % (Auto) (0.0-3.0) % Lymph # (Auto) (1.2-3.4) [place] # (Auto) (0.1-0.6) Eos # (Auto) (0.0-0.7) Baso # (Auto) (0.0-2.0) K/mm3 Absolute Neuts (auto) (1.4-6.5) PT (9.4-12.5) SECONDS INR APTT (26.9-38.3) Seconds pCO2 (35-45) mm/Hg pO2 (80-100) mm/Hg HCO3 (21-28) mmol/L ABG pH (7.35-7.45) ABG Total CO2 (22-28) mmol.L ABG O2 Saturation (95-98) % ABG O2 Content (15-23) ML/dl ABG Base Excess (-2.0-3.0) mmol/L ABG Hemoglobin (11.7-17.4) g/dL ABG Carboxyhemoglobin (0.5-1.5) % POC ABG HHb (Measured) (0-5) % ABG Methemoglobin (0.0-3.0) % ABG O2 Capacity (16-24) mL/dl ABG Potassium (3.6-5.2) mmol/L VBG pH (7.32-7.43) VBG pCO2 (40-60) VBG HCO3 (21-28) mmol/l VBG Total CO2 (22-28) mmol.L VBG O2 Sat (Calc) (40-65) % VBG Base Excess (0.0-2.0) mmol/L VBG Potassium (3.6-5.2) mmol/L Hgb O2 Saturation (95.0-98.0) % Sodium 137 (132-148) mmol/L Chloride 104 (98-107) mmol/L Glucose (75-110) mg/dl Lactate (0.7-2.1) mmol/L FiO2 % Crit Value Called To Crit Value Called By Blood Gas Notified Time Potassium 4.4 (3.6-5.0) mmol/L Carbon Dioxide 21 (21-33) mmol/L Anion Gap 15 (10-20) BUN 20 (7-21) mg/dL Creatinine 1.0 (0.8-1.5) mg/dl Est GFR ( Amer) > 60 Est GFR (Non-Af Amer) > 60 POC Glucose (mg/dL) (65-110) mg/dL Random Glucose 161 H (70-110) mg/dL Hemoglobin A1c 5.5 (4.2-6.5) % Calcium 8.9 (8.4-10.5) mg/dL Phosphorus 2.5 (2.5-4.5) mg/dL Magnesium 1.9 (1.7-2.2) mg/dL Total Bilirubin 0.9 (0.2-1.3) mg/dL AST 306 H D (17-59) U/L ALT 201 H (7-56) U/L Alkaline Phosphatase 51 (38-126) U/L Total Creatine Kinase (35-230) U/L Total Protein 7.0 (5.8-8.3) g/dL Albumin 4.1 (3.0-4.8) g/dL Globulin 2.9 gm/dL Albumin/Globulin Ratio 1.4 (1.1-1.8) Triglycerides 132 (35-160) mg/dL Cholesterol 187 (130-200) mg/dL LDL Cholesterol Direct 119 (0-129) mg/dL HDL Cholesterol 34 (29-60) mg/dL TSH 3rd Generation 2.25 (0.46-4.68) mIU/mL Arterial Blood Potassium (3.6-5.2) mmol/L Venous Blood Potassium (3.6-5.2) mmol/L Urine Opiates Screen (NEGATIVE) Urine Methadone Screen (NEGATIVE) Ur Barbiturates Screen (NEGATIVE) Ur Phencyclidine Scrn (NEGATIVE) Ur Amphetamines Screen (NEGATIVE) U Benzodiazepines Scrn (NEGATIVE) U Oth Cocaine Metabols (NEGATIVE) U Cannabinoids Screen (NEGATIVE) Alcohol, Quantitative (0-10) mg/dL Hepatitis A IgM Ab (NEGATIVE) Hep Bs Antigen (NEGATIVE) Hep B Core IgM Ab (NEGATIVE) Hepatitis C Antibody (NEGATIVE) Blood Type Blood Type Confirm Antibody Screen BBK History Checked 07/01/18 07/01/18 07/01/18 Range/Units 18:10 16:10 14:30 WBC (4.5-11.0) 10^3/uL RBC (3.5-6.1) 10^6/uL Hgb (14.0-18.0) g/dL Hct (42.0-52.0) % MCV (80.0-105.0) fl MCH (25.0-35.0) pg MCHC (31.0-37.0) g/dl RDW (11.5-14.5) % Plt Count (120.0-450.0) 10^3/uL MPV (7.0-11.0) fl Neut % (Auto) (50.0-68.0) % Lymph % (Auto) (22.0-35.0) % [place] % (Auto) (1.0-6.0) % Eos % (Auto) (1.5-5.0) % Baso % (Auto) (0.0-3.0) % Lymph # (Auto) (1.2-3.4) [place] # (Auto) (0.1-0.6) Eos # (Auto) (0.0-0.7) Baso # (Auto) (0.0-2.0) K/mm3 Absolute Neuts (auto) (1.4-6.5) PT (9.4-12.5) SECONDS INR APTT (26.9-38.3) Seconds pCO2 41 40 (35-45) mm/Hg pO2 110.0 H 114.0 H (80-100) mm/Hg HCO3 21.1 14.9 L (21-28) mmol/L ABG pH 7.32 L 7.18 L* (7.35-7.45) ABG Total CO2 22.4 16.1 L (22-28) mmol.L ABG O2 Saturation 99.1 H 98.8 H (95-98) % ABG O2 Content (15-23) ML/dl ABG Base Excess -4.8 L -12.9 L (-2.0-3.0) mmol/L ABG Hemoglobin (11.7-17.4) g/dL ABG Carboxyhemoglobin (0.5-1.5) % POC ABG HHb (Measured) (0-5) % ABG Methemoglobin (0.0-3.0) % ABG O2 Capacity (16-24) mL/dl ABG Potassium 4.0 4.7 (3.6-5.2) mmol/L VBG pH (7.32-7.43) VBG pCO2 (40-60) VBG HCO3 (21-28) mmol/l VBG Total CO2 (22-28) mmol.L VBG O2 Sat (Calc) (40-65) % VBG Base Excess (0.0-2.0) mmol/L VBG Potassium (3.6-5.2) mmol/L Hgb O2 Saturation (95.0-98.0) % Sodium 136.0 134.0 (132-148) mmol/L Chloride 104.0 98.0 (98-107) mmol/L Glucose 166 H 281 H (75-110) mg/dl Lactate 3.1 H 8.3 H* (0.7-2.1) mmol/L FiO2 40.0 40.0 % Crit Value Called To Dr. [email or web address] Kat Crit Value Called By Ritchie Dugan Blood Gas Notified Time 1813 1620 Potassium (3.6-5.0) mmol/L Carbon Dioxide (21-33) mmol/L Anion Gap (10-20) BUN (7-21) mg/dL Creatinine (0.8-1.5) mg/dl Est GFR ( Amer) Est GFR (Non-Af Amer) POC Glucose (mg/dL) (65-110) mg/dL Random Glucose (70-110) mg/dL Hemoglobin A1c (4.2-6.5) % Calcium (8.4-10.5) mg/dL Phosphorus (2.5-4.5) mg/dL Magnesium (1.7-2.2) mg/dL Total Bilirubin (0.2-1.3) mg/dL AST (17-59) U/L ALT (7-56) U/L Alkaline Phosphatase (38-126) U/L Total Creatine Kinase (35-230) U/L Total Protein (5.8-8.3) g/dL Albumin (3.0-4.8) g/dL Globulin gm/dL Albumin/Globulin Ratio (1.1-1.8) Triglycerides (35-160) mg/dL Cholesterol (130-200) mg/dL LDL Cholesterol Direct (0-129) mg/dL HDL Cholesterol (29-60) mg/dL TSH 3rd Generation (0.46-4.68) mIU/mL Arterial Blood Potassium 4.0 4.7 (3.6-5.2) mmol/L Venous Blood Potassium (3.6-5.2) mmol/L Urine Opiates Screen (NEGATIVE) Urine Methadone Screen (NEGATIVE) Ur Barbiturates Screen (NEGATIVE) Ur Phencyclidine Scrn (NEGATIVE) Ur Amphetamines Screen (NEGATIVE) U Benzodiazepines Scrn (NEGATIVE) U Oth Cocaine Metabols (NEGATIVE) U Cannabinoids Screen (NEGATIVE) Alcohol, Quantitative (0-10) mg/dL Hepatitis A IgM Ab Negative (NEGATIVE) Hep Bs Antigen Negative (NEGATIVE) Hep B Core IgM Ab Negative (NEGATIVE) Hepatitis C Antibody Negative (NEGATIVE) Blood Type Blood Type Confirm Antibody Screen BBK History Checked 07/01/18 07/01/18 Range/Units 11:30 11:00 WBC (4.5-11.0) 10^3/uL RBC (3.5-6.1) 10^6/uL Hgb (14.0-18.0) g/dL Hct (42.0-52.0) % MCV (80.0-105.0) fl MCH (25.0-35.0) pg MCHC (31.0-37.0) g/dl RDW (11.5-14.5) % Plt Count (120.0-450.0) 10^3/uL MPV (7.0-11.0) fl Neut % (Auto) (50.0-68.0) % Lymph % (Auto) (22.0-35.0) % [place] % (Auto) (1.0-6.0) % Eos % (Auto) (1.5-5.0) % Baso % (Auto) (0.0-3.0) % Lymph # (Auto) (1.2-3.4) [place] # (Auto) (0.1-0.6) Eos # (Auto) (0.0-0.7) Baso # (Auto) (0.0-2.0) K/mm3 Absolute Neuts (auto) (1.4-6.5) PT 11.3 (9.4-12.5) SECONDS INR 1.02 APTT 29.4 (26.9-38.3) Seconds pCO2 (35-45) mm/Hg pO2 (80-100) mm/Hg HCO3 (21-28) mmol/L ABG pH (7.35-7.45) ABG Total CO2 (22-28) mmol.L ABG O2 Saturation (95-98) % ABG O2 Content (15-23) ML/dl ABG Base Excess (-2.0-3.0) mmol/L ABG Hemoglobin (11.7-17.4) g/dL ABG Carboxyhemoglobin (0.5-1.5) % POC ABG HHb (Measured) (0-5) % ABG Methemoglobin (0.0-3.0) % ABG O2 Capacity (16-24) mL/dl ABG Potassium (3.6-5.2) mmol/L VBG pH (7.32-7.43) VBG pCO2 (40-60) VBG HCO3 (21-28) mmol/l VBG Total CO2 (22-28) mmol.L VBG O2 Sat (Calc) (40-65) % VBG Base Excess (0.0-2.0) mmol/L VBG Potassium (3.6-5.2) mmol/L Hgb O2 Saturation (95.0-98.0) % Sodium (132-148) mmol/L Chloride (98-107) mmol/L Glucose (75-110) mg/dl Lactate (0.7-2.1) mmol/L FiO2 % Crit Value Called To Crit Value Called By Blood Gas Notified Time Potassium (3.6-5.0) mmol/L Carbon Dioxide (21-33) mmol/L Anion Gap (10-20) BUN (7-21) mg/dL Creatinine (0.8-1.5) mg/dl Est GFR ( Amer) Est GFR (Non-Af Amer) POC Glucose (mg/dL) (65-110) mg/dL Random Glucose (70-110) mg/dL Hemoglobin A1c (4.2-6.5) % Calcium (8.4-10.5) mg/dL Phosphorus (2.5-4.5) mg/dL Magnesium (1.7-2.2) mg/dL Total Bilirubin (0.2-1.3) mg/dL AST (17-59) U/L ALT (7-56) U/L Alkaline Phosphatase (38-126) U/L Total Creatine Kinase (35-230) U/L Total Protein (5.8-8.3) g/dL Albumin (3.0-4.8) g/dL Globulin gm/dL Albumin/Globulin Ratio (1.1-1.8) Triglycerides (35-160) mg/dL Cholesterol (130-200) mg/dL LDL Cholesterol Direct (0-129) mg/dL HDL Cholesterol (29-60) mg/dL TSH 3rd Generation (0.46-4.68) mIU/mL Arterial Blood Potassium (3.6-5.2) mmol/L Venous Blood Potassium (3.6-5.2) mmol/L Urine Opiates Screen (NEGATIVE) Urine Methadone Screen (NEGATIVE) Ur Barbiturates Screen (NEGATIVE) Ur Phencyclidine Scrn (NEGATIVE) Ur Amphetamines Screen (NEGATIVE) U Benzodiazepines Scrn (NEGATIVE) U Oth Cocaine Metabols (NEGATIVE) U Cannabinoids Screen (NEGATIVE) Alcohol, Quantitative < 10 (0-10) mg/dL Hepatitis A IgM Ab (NEGATIVE) Hep Bs Antigen (NEGATIVE) Hep B Core IgM Ab (NEGATIVE) Hepatitis C Antibody (NEGATIVE) Blood Type Blood Type Confirm Antibody Screen BBK History Checked Laboratory Results - last 24 hr 07/01/18 07/01/18 07/01/18 11:00 11:30 14:30 WBC RBC Hgb Hct MCV MCH MCHC RDW Plt Count MPV Neut % (Auto) Lymph % (Auto) [place] % (Auto) Eos % (Auto) Baso % (Auto) Lymph # (Auto) [place] # (Auto) Eos # (Auto) Baso # (Auto) Absolute Neuts (auto) PT 11.3 INR 1.02 APTT 29.4 pCO2 pO2 HCO3 ABG pH ABG Total CO2 ABG O2 Saturation ABG O2 Content ABG Base Excess ABG Hemoglobin ABG Carboxyhemoglobin POC ABG HHb (Measured) ABG Methemoglobin ABG O2 Capacity ABG Potassium VBG pH VBG pCO2 VBG HCO3 VBG Total CO2 VBG O2 Sat (Calc) VBG Base Excess VBG Potassium Hgb O2 Saturation Sodium Chloride Glucose Lactate FiO2 Crit Value Called To Crit Value Called By Blood Gas Notified Time Potassium Carbon Dioxide Anion Gap BUN Creatinine Est GFR ( Amer) Est GFR (Non-Af Amer) POC Glucose (mg/dL) Random Glucose Hemoglobin A1c Calcium Phosphorus Magnesium Total Bilirubin AST ALT Alkaline Phosphatase Total Creatine Kinase Total Protein Albumin Globulin Albumin/Globulin Ratio Triglycerides Cholesterol LDL Cholesterol Direct HDL Cholesterol TSH 3rd Generation Arterial Blood Potassium Venous Blood Potassium Urine Opiates Screen Urine Methadone Screen Ur Barbiturates Screen Ur Phencyclidine Scrn Ur Amphetamines Screen U Benzodiazepines Scrn U Oth Cocaine Metabols U Cannabinoids Screen Alcohol, Quantitative < 10 Hepatitis A IgM Ab Negative Hep Bs Antigen Negative Hep B Core IgM Ab Negative Hepatitis C Antibody Negative Blood Type Blood Type Confirm Antibody Screen BBK History Checked 07/01/18 07/01/18 07/01/18 16:10 18:10 18:20 WBC RBC Hgb Hct MCV MCH MCHC RDW Plt Count MPV Neut % (Auto) Lymph % (Auto) [place] % (Auto) Eos % (Auto) Baso % (Auto) Lymph # (Auto) [place] # (Auto) Eos # (Auto) Baso # (Auto) Absolute Neuts (auto) PT INR APTT pCO2 40 41 pO2 114.0 H 110.0 H HCO3 14.9 L 21.1 ABG pH 7.18 L* 7.32 L ABG Total CO2 16.1 L 22.4 ABG O2 Saturation 98.8 H 99.1 H ABG O2 Content ABG Base Excess -12.9 L -4.8 L ABG Hemoglobin ABG Carboxyhemoglobin POC ABG HHb (Measured) ABG Methemoglobin ABG O2 Capacity ABG Potassium 4.7 4.0 VBG pH VBG pCO2 VBG HCO3 VBG Total CO2 VBG O2 Sat (Calc) VBG Base Excess VBG Potassium Hgb O2 Saturation Sodium 134.0 136.0 137 Chloride 98.0 104.0 104 Glucose 281 H 166 H Lactate 8.3 H* 3.1 H FiO2 40.0 40.0 Crit Value Called To Dr.juan Dr. [email or web address] Crit Value Called By Ritchie Dugan Blood Gas Notified Time 1620 1814 Potassium 4.4 Carbon Dioxide 21 Anion Gap 15 BUN 20 Creatinine 1.0 Est GFR ( Amer) > 60 Est GFR (Non-Af Amer) > 60 POC Glucose (mg/dL) Random Glucose 161 H Hemoglobin A1c Calcium 8.9 Phosphorus 2.5 Magnesium 1.9 Total Bilirubin 0.9 AST 306 H D ALT 201 H Alkaline Phosphatase 51 Total Creatine Kinase Total Protein 7.0 Albumin 4.1 Globulin 2.9 Albumin/Globulin Ratio 1.4 Triglycerides 132 Cholesterol 187 LDL Cholesterol Direct 119 HDL Cholesterol 34 TSH 3rd Generation Arterial Blood Potassium 4.7 4.0 Venous Blood Potassium Urine Opiates Screen Urine Methadone Screen Ur Barbiturates Screen Ur Phencyclidine Scrn Ur Amphetamines Screen U Benzodiazepines Scrn U Oth Cocaine Metabols U Cannabinoids Screen Alcohol, Quantitative Hepatitis A IgM Ab Hep Bs Antigen Hep B Core IgM Ab Hepatitis C Antibody Blood Type Blood Type Confirm Antibody Screen BBK History Checked 07/01/18 07/01/18 07/01/18 18:20 18:20 18:20 WBC 15.5 H D RBC 4.65 Hgb 14.4 Hct 42.6 MCV 91.6 MCH 31.0 MCHC 33.8 RDW 14.0 Plt Count 176 MPV 10.1 Neut % (Auto) 89.7 H Lymph % (Auto) 7.8 L [place] % (Auto) 2.4 Eos % (Auto) 0.0 L Baso % (Auto) 0.1 Lymph # (Auto) 1.2 [place] # (Auto) 0.4 Eos # (Auto) 0.0 Baso # (Auto) 0.01 Absolute Neuts (auto) 13.87 H PT INR APTT pCO2 pO2 HCO3 ABG pH ABG Total CO2 ABG O2 Saturation ABG O2 Content ABG Base Excess ABG Hemoglobin ABG Carboxyhemoglobin POC ABG HHb (Measured) ABG Methemoglobin ABG O2 Capacity ABG Potassium VBG pH VBG pCO2 VBG HCO3 VBG Total CO2 VBG O2 Sat (Calc) VBG Base Excess VBG Potassium Hgb O2 Saturation Sodium Chloride Glucose Lactate FiO2 Crit Value Called To Crit Value Called By Blood Gas Notified Time Potassium Carbon Dioxide Anion Gap BUN Creatinine Est GFR ( Amer) Est GFR (Non-Af Amer) POC Glucose (mg/dL) Random Glucose Hemoglobin A1c 5.5 Calcium Phosphorus Magnesium Total Bilirubin AST ALT Alkaline Phosphatase Total Creatine Kinase Total Protein Albumin Globulin Albumin/Globulin Ratio Triglycerides Cholesterol LDL Cholesterol Direct HDL Cholesterol TSH 3rd Generation 2.25 Arterial Blood Potassium Venous Blood Potassium Urine Opiates Screen Urine Methadone Screen Ur Barbiturates Screen Ur Phencyclidine Scrn Ur Amphetamines Screen U Benzodiazepines Scrn U Oth Cocaine Metabols U Cannabinoids Screen Alcohol, Quantitative Hepatitis A IgM Ab Hep Bs Antigen Hep B Core IgM Ab Hepatitis C Antibody Blood Type Blood Type Confirm Antibody Screen BBK History Checked 07/01/18 07/01/18 07/01/18 18:30 19:20 19:50 WBC RBC Hgb Hct MCV MCH MCHC RDW Plt Count MPV Neut % (Auto) Lymph % (Auto) [place] % (Auto) Eos % (Auto) Baso % (Auto) Lymph # (Auto) [place] # (Auto) Eos # (Auto) Baso # (Auto) Absolute Neuts (auto) PT INR APTT pCO2 pO2 157 H HCO3 ABG pH ABG Total CO2 ABG O2 Saturation ABG O2 Content ABG Base Excess ABG Hemoglobin ABG Carboxyhemoglobin POC ABG HHb (Measured) ABG Methemoglobin ABG O2 Capacity ABG Potassium VBG pH 7.30 L VBG pCO2 44.0 VBG HCO3 21.6 VBG Total CO2 23.0 VBG O2 Sat (Calc) 99.7 H VBG Base Excess -4.8 L VBG Potassium 5.0 Hgb O2 Saturation Sodium 135.0 Chloride 103.0 Glucose 167 H Lactate 4.1 H* FiO2 21.0 Crit Value Called To Misbah herrera Crit Value Called By Es Blood Gas Notified Time 1930 Potassium Carbon Dioxide Anion Gap BUN Creatinine Est GFR ( Amer) Est GFR (Non-Af Amer) POC Glucose (mg/dL) Random Glucose Hemoglobin A1c Calcium Phosphorus Magnesium Total Bilirubin AST ALT Alkaline Phosphatase Total Creatine Kinase Total Protein Albumin Globulin Albumin/Globulin Ratio Triglycerides Cholesterol LDL Cholesterol Direct HDL Cholesterol TSH 3rd Generation Arterial Blood Potassium Venous Blood Potassium 5.0 Urine Opiates Screen Urine Methadone Screen Ur Barbiturates Screen Ur Phencyclidine Scrn Ur Amphetamines Screen U Benzodiazepines Scrn U Oth Cocaine Metabols U Cannabinoids Screen Alcohol, Quantitative Hepatitis A IgM Ab Hep Bs Antigen Hep B Core IgM Ab Hepatitis C Antibody Blood Type O POSITIVE Blood Type Confirm O POSITIVE Antibody Screen Negative BBK History Checked No verified bt 07/01/18 07/02/18 07/02/18 22:14 01:50 05:00 WBC 11.5 H D RBC 4.35 Hgb 13.3 L Hct 39.6 L MCV 91.0 MCH 30.6 MCHC 33.6 RDW 14.1 Plt Count 179 MPV 10.0 Neut % (Auto) 81.0 H Lymph % (Auto) 13.1 L [place] % (Auto) 5.8 Eos % (Auto) 0.0 L Baso % (Auto) 0.1 Lymph # (Auto) 1.5 [place] # (Auto) 0.7 H Eos # (Auto) 0.0 Baso # (Auto) 0.01 Absolute Neuts (auto) 9.31 H PT INR APTT 43.1 H pCO2 pO2 HCO3 ABG pH ABG Total CO2 ABG O2 Saturation ABG O2 Content ABG Base Excess ABG Hemoglobin ABG Carboxyhemoglobin POC ABG HHb (Measured) ABG Methemoglobin ABG O2 Capacity ABG Potassium VBG pH VBG pCO2 VBG HCO3 VBG Total CO2 VBG O2 Sat (Calc) VBG Base Excess VBG Potassium Hgb O2 Saturation Sodium Chloride Glucose Lactate FiO2 Crit Value Called To Crit Value Called By Blood Gas Notified Time Potassium Carbon Dioxide Anion Gap BUN Creatinine Est GFR ( Amer) Est GFR (Non-Af Amer) POC Glucose (mg/dL) Random Glucose Hemoglobin A1c Calcium Phosphorus Magnesium Total Bilirubin AST ALT Alkaline Phosphatase Total Creatine Kinase Total Protein Albumin Globulin Albumin/Globulin Ratio Triglycerides Cholesterol LDL Cholesterol Direct HDL Cholesterol TSH 3rd Generation Arterial Blood Potassium Venous Blood Potassium Urine Opiates Screen Negative Urine Methadone Screen Negative Ur Barbiturates Screen Negative Ur Phencyclidine Scrn Negative Ur Amphetamines Screen Positive H U Benzodiazepines Scrn Positive H U Oth Cocaine Metabols Negative U Cannabinoids Screen Negative Alcohol, Quantitative Hepatitis A IgM Ab Hep Bs Antigen Hep B Core IgM Ab Hepatitis C Antibody Blood Type Blood Type Confirm Antibody Screen BBK History Checked 07/02/18 07/02/18 07/02/18 05:00 05:00 05:00 WBC RBC Hgb Hct MCV MCH MCHC RDW Plt Count MPV Neut % (Auto) Lymph % (Auto) [place] % (Auto) Eos % (Auto) Baso % (Auto) Lymph # (Auto) [place] # (Auto) Eos # (Auto) Baso # (Auto) Absolute Neuts (auto) PT INR APTT pCO2 pO2 HCO3 ABG pH ABG Total CO2 ABG O2 Saturation ABG O2 Content ABG Base Excess ABG Hemoglobin ABG Carboxyhemoglobin POC ABG HHb (Measured) ABG Methemoglobin ABG O2 Capacity ABG Potassium VBG pH VBG pCO2 VBG HCO3 VBG Total CO2 VBG O2 Sat (Calc) VBG Base Excess VBG Potassium Hgb O2 Saturation Sodium 139 Chloride 107 Glucose Lactate FiO2 Crit Value Called To Crit Value Called By Blood Gas Notified Time Potassium 3.8 Carbon Dioxide 26 Anion Gap 10 BUN 16 Creatinine 1.0 Est GFR ( Amer) > 60 Est GFR (Non-Af Amer) > 60 POC Glucose (mg/dL) Random Glucose 105 Hemoglobin A1c 5.5 Calcium 8.5 Phosphorus 2.5 Magnesium 1.7 Total Bilirubin 0.7 AST 485 H D ALT 180 H Alkaline Phosphatase 55 Total Creatine Kinase Total Protein 6.5 Albumin 3.8 Globulin 2.7 Albumin/Globulin Ratio 1.4 Triglycerides 144 Cholesterol 175 LDL Cholesterol Direct 111 HDL Cholesterol 36 TSH 3rd Generation 0.55 Arterial Blood Potassium Venous Blood Potassium Urine Opiates Screen Urine Methadone Screen Ur Barbiturates Screen Ur Phencyclidine Scrn Ur Amphetamines Screen U Benzodiazepines Scrn U Oth Cocaine Metabols U Cannabinoids Screen Alcohol, Quantitative Hepatitis A IgM Ab Hep Bs Antigen Hep B Core IgM Ab Hepatitis C Antibody Blood Type Blood Type Confirm Antibody Screen BBK History Checked 07/02/18 07/02/18 07/02/18 05:00 05:10 06:44 WBC RBC Hgb Hct MCV MCH MCHC RDW Plt Count MPV Neut % (Auto) Lymph % (Auto) [place] % (Auto) Eos % (Auto) Baso % (Auto) Lymph # (Auto) [place] # (Auto) Eos # (Auto) Baso # (Auto) Absolute Neuts (auto) PT INR APTT 58.3 H pCO2 37 pO2 79.0 L HCO3 24.0 ABG pH 7.42 ABG Total CO2 25.1 ABG O2 Saturation 97.7 ABG O2 Content 18.5 ABG Base Excess -0.2 ABG Hemoglobin 13.8 ABG Carboxyhemoglobin 1.7 H POC ABG HHb (Measured) 2.2 ABG Methemoglobin 1.1 ABG O2 Capacity 18.9 ABG Potassium VBG pH VBG pCO2 VBG HCO3 VBG Total CO2 VBG O2 Sat (Calc) VBG Base Excess VBG Potassium Hgb O2 Saturation 94.9 L Sodium Chloride Glucose Lactate FiO2 40.0 Crit Value Called To Crit Value Called By Blood Gas Notified Time Potassium Carbon Dioxide Anion Gap BUN Creatinine Est GFR ( Amer) Est GFR (Non-Af Amer) POC Glucose (mg/dL) 105 Random Glucose Hemoglobin A1c Calcium Phosphorus Magnesium Total Bilirubin AST ALT Alkaline Phosphatase Total Creatine Kinase Total Protein Albumin Globulin Albumin/Globulin Ratio Triglycerides Cholesterol LDL Cholesterol Direct HDL Cholesterol TSH 3rd Generation Arterial Blood Potassium Venous Blood Potassium Urine Opiates Screen Urine Methadone Screen Ur Barbiturates Screen Ur Phencyclidine Scrn Ur Amphetamines Screen U Benzodiazepines Scrn U Oth Cocaine Metabols U Cannabinoids Screen Alcohol, Quantitative Hepatitis A IgM Ab Hep Bs Antigen Hep B Core IgM Ab Hepatitis C Antibody Blood Type Blood Type Confirm Antibody Screen BBK History Checked 07/02/18 07/02/18 11:15 11:15 WBC RBC Hgb Hct MCV MCH MCHC RDW Plt Count MPV Neut % (Auto) Lymph % (Auto) [place] % (Auto) Eos % (Auto) Baso % (Auto) Lymph # (Auto) [place] # (Auto) Eos # (Auto) Baso # (Auto) Absolute Neuts (auto) PT INR APTT 30.1 pCO2 pO2 HCO3 ABG pH ABG Total CO2 ABG O2 Saturation ABG O2 Content ABG Base Excess ABG Hemoglobin ABG Carboxyhemoglobin POC ABG HHb (Measured) ABG Methemoglobin ABG O2 Capacity ABG Potassium VBG pH VBG pCO2 VBG HCO3 VBG Total CO2 VBG O2 Sat (Calc) VBG Base Excess VBG Potassium Hgb O2 Saturation Sodium Chloride Glucose Lactate FiO2 Crit Value Called To Crit Value Called By Blood Gas Notified Time Potassium Carbon Dioxide Anion Gap BUN Creatinine Est GFR ( Amer) Est GFR (Non-Af Amer) POC Glucose (mg/dL) Random Glucose Hemoglobin A1c Calcium Phosphorus Magnesium Total Bilirubin AST ALT Alkaline Phosphatase Total Creatine Kinase 7571 H Total Protein Albumin Globulin Albumin/Globulin Ratio Triglycerides Cholesterol LDL Cholesterol Direct HDL Cholesterol TSH 3rd Generation Arterial Blood Potassium Venous Blood Potassium Urine Opiates Screen Urine Methadone Screen Ur Barbiturates Screen Ur Phencyclidine Scrn Ur Amphetamines Screen U Benzodiazepines Scrn U Oth Cocaine Metabols U Cannabinoids Screen Alcohol, Quantitative Hepatitis A IgM Ab Hep Bs Antigen Hep B Core IgM Ab Hepatitis C Antibody Blood Type Blood Type Confirm Antibody Screen BBK History Checked Radiology Impressions: Radiology Impressions Head CT 07/01/18 13:27 IMPRESSION: No acute intracranial findings Chest X-Ray 07/01/18 17:27 IMPRESSION: No active disease. Chest X-Ray 07/02/18 05:00 IMPRESSION: New right apical consolidation Chest X-Ray 07/02/18 08:24 IMPRESSION: No active disease. EKG/Cardiology Studies: Cardiology / EKG Studies 07/01/18 12:21 EKG [ELECTROCARDIOGRAM] Stat Comment: Reason For Exam: CHEST PAIN 07/01/18 16:31 ELECTROCARDIOGRAM Urgent Comment: 12 lead EKG upon arrival in unit Reason For Exam: post ptca 07/02/18 06:00 ELECTROCARDIOGRAM DAILY Comment: Reason For Exam: NSTEMI 07/02/18 16:45 ELECTROCARDIOGRAM DAILY Comment: Reason For Exam: chest pain Critical Care Progress Note - Nutrition Nutrition: Nutrition Category Date Time Status Heart Healthy Diet [DIET] Diets 07/01/18 Breakfast Active Assessment/Plan - Assessment and Plan (Free Text) Plan: Patient seen and examined on rounds with resident, agree with note with following additions/exceptions: Patient is 53yo male with PMhx of obesity, polysubstance abuse, EtOH abuse, HTN, smoker, a/w s/p Vfib cardiac arrest, s/p PCI with RCA stent on IABP Currently afebrile, HD stable, comfortable in NAD, on Dobutamine 2.5mcg Sedation has been shut off, will attempt CPAP trial if more awake Labs, imaging, chart reviewed HH has been stable Cardiology following Nedurology consulted Syncope HTN VFIB arrest s/p ROSC s/p PCI CAD Recommend: - cont with vent support, low tidal vol ventilation, duonebs PRN, daily sedation vacation, CPAP trials, ABG, CXR - Nicotine Patch 21mcg - Panculture, UCX, BCx, Procal - ASA, Statin, Prasugrel - DC heparin, Integrillin as per cardio - VEEG, Neuro eval - ECHO - follow up cardio - FS control - Check HgBA1C, TSH - GI ppx - DVT ppx - Monitor in MICU Critical care time 35 minutes
[2018-07-02] MEDS ORDERED: Cefepime 1gm in NS 100ml 1 GM/100 ML BAG IVPB SCH (07:30)
--- NOTE | 2018-07-02 09:31 | RAD ---
Date of service: 07/01/2018 HISTORY: STEMI COMPARISON: 07/01/2018 FINDINGS: LUNGS: No active pulmonary disease. PLEURA: No significant pleural effusion identified, no pneumothorax apparent. CARDIOVASCULAR: No aortic atherosclerotic calcification present. Mild cardiomegaly no pulmonary vascular congestion. OSSEOUS STRUCTURES: No significant abnormalities. VISUALIZED UPPER ABDOMEN: Normal. OTHER FINDINGS: The endotracheal tube and nasogastric tube are in satisfactory position IMPRESSION: No active disease.
--- NOTE | 2018-07-02 09:50 | RAD ---
Date of service: 07/02/2018 HISTORY: repeat study COMPARISON: 07/02/2018 FINDINGS: LUNGS: No active pulmonary disease. PLEURA: No significant pleural effusion identified, no pneumothorax apparent. CARDIOVASCULAR: No aortic atherosclerotic calcification present. Normal cardiac size. No pulmonary vascular congestion. OSSEOUS STRUCTURES: No significant abnormalities. VISUALIZED UPPER ABDOMEN: Normal. OTHER FINDINGS: The endotracheal tube and nasogastric tube are in satisfactory position IMPRESSION: No active disease.
[2018-07-02] MEDS ORDERED: Vancomycin 1gm in NS 250ml 1 GM/250 ML BAG IVPB SCH (10:00)
--- NOTE | 2018-07-02 10:04 | RAD ---
Date of service: 07/02/2018 HISTORY: on vent COMPARISON: 07/01/2018 FINDINGS: LUNGS: Right apical consolidation which is a new finding PLEURA: No significant pleural effusion identified, no pneumothorax apparent. CARDIOVASCULAR: No aortic atherosclerotic calcification present. Normal cardiac size. No pulmonary vascular congestion. OSSEOUS STRUCTURES: No significant abnormalities. VISUALIZED UPPER ABDOMEN: Normal. OTHER FINDINGS: Endotracheal and nasogastric tube in satisfactory position IMPRESSION: New right apical consolidation
[2018-07-02] MEDS ORDERED: DOBUTamine 500mg/250ml D5W 500 MG/250 ML BAG IV PRN (10:14)
--- NOTE | 2018-07-02 11:31 | PN ---
DATE: 07/02/2018 SUBJECTIVE: He is in the Intensive Care Unit on the ventilator. He had an emergent cardiac cath for 100% RCA and he was stented, he is very maritza, he is sedated, intubated on the fentanyl patch with Versed drip. He had some mild nasal bleeding, suctioned. He is in a lot of trouble, he is very very ill. He had 5 episodes of a Code Blue, luckily it happened in the hospital, this happened as he was trying to AMA. He is on the ventilator. He had head CT, which showed no intracranial finding. The chest x-ray showed no acute disease at this time. He had cardiac cath with stent placement. He is a heavy smoker, hypertension, alcohol abuse and I believe there is also history of amphetamine abuse. He had elevated troponin and NSTEMI. He did go through emergency catheterization of PTCA. PHYSICAL EXAMINATION: VITAL SIGNS: Presently, temperature 99.1, pulse 119 and blood pressure 137/68, O2 sats 98%. HEART: Regular rate and tachy. LUNGS: Decreased breath sounds, but clear. ABDOMEN: Soft and nontender. EXTREMITIES: No edema. LABORATORY DATA: White count 11.5, hemoglobin 13.3, hematocrit 39.6 and platelets 179. Lactate was as high as 8.3 it is 4.1 now. Sodium 139, potassium 3.8, BUN 16, creatinine 1, GFR is greater than 60, sugar is 105, calcium is 8.5, phosphorous 2.5, AST is 45, ALT is 180, alk phos 65, total protein 6.5. Triglycerides 144 and cholesterol is 175. ASSESSMENT AND PLAN: He was positive for amphetamines and positive for benzodiazepines. Negative for hepatitis A, B and C. We will continue with aggressive treatment and care in the Intensive Care Unit. Ministerio Wan DO
[2018-07-02] MEDS: Piperacillin/Tazobact 3.375 gm 100 ML IVPB SCH ×2 (13:04→21:47)
[2018-07-02 13:47] LABS: CK MB% 1.1 % (2.5-3.0); CK-MB 85.3 ng/mL (0.0-3.6)
--- NOTE | 2018-07-02 14:08 | PN ---
DATE: 07/02/2018 SUBJECTIVE: The patient remains on a ventilator. Hemodynamically, the patient is stable on tapering intra-aortic balloon pump. PHYSICAL EXAMINATION: VITAL SIGNS: Blood pressure 133/80, heart rate is in the 100-110, sinus tachycardia. NECK: Negative JVD. LUNGS: Decreased breath sounds bilaterally. HEART: Reveal S1, S2. EXTREMITIES: Without edema. LABORATORY DATA: Hemoglobin is 13.3. Chemistries; BUN and creatinine are unremarkable. LFTs are elevated. IMPRESSION: 1. Status post cardiogenic shock. 2. Status post ventricular fibrillation arrest x5. 3. Status post acute inferior wall myocardial infarction with right ventricular infarction. 4. Status post emergency percutaneous transluminal coronary angioplasty and stent. 5. Likely chronic obstructive pulmonary disease. 6. Multiple episodes of mucous plugging. 7. Hypertension. Given these findings, we will discontinue the intra-aortic balloon pump today. We will decrease the dobutamine to 2.5. The patient is off of dopamine. Hemodynamically, the patient is better. We will need to evaluate his neurologic status once we stop his sedation. Attempts at weaning off the respirator would be appropriate today. Devonte Patel MD
[2018-07-02] MEDS: Sodium Chloride 0.9% 1,000 ML IV SCH (17:36)
--- NOTE | 2018-07-02 22:36 | CARD ---
APPROVED REPORT Date of service: 07/02/2018 EKG Measurement Heart [id number] <Conclusion> Sinus tachycardia Left axis deviation Left ventricular hypertrophy with repolarization abnormality Inferior infarct, age undetermined Abnormal ECG
--- NOTE | 2018-07-02 22:45 | CARD ---
APPROVED REPORT Date of service: 07/02/2018 EKG Measurement Heart [id number] <Conclusion> Sinus tachycardia Possible inferior infarct, age undetermined NDSTT abnormalities CCR Abnormal ECG
[2018-07-03 05:39] LABS: ARTERIAL BLOOD GAS HEMOGLOBIN 15.2 g/dL (11.7-17.4); ARTERIAL BLOOD GAS O2 CAPACITY 20.8 mL/dl (16-24); ARTERIAL BLOOD GAS O2 CONTENT 20.6 ML/dl (15-23); ARTERIAL BLOOD GAS O2 SAT 98.9 % (95-98); ARTERIAL BLOOD GAS PCO2 36 mm/Hg (35-45); ARTERIAL BLOOD GAS PH 7.45 (7.35-7.45); ARTERIAL BLOOD GAS TCO2 26.1 mmol.L (22-28)
[2018-07-03 06:35] LABS: BASO # 0.01 K/mm3 (0.0-2.0); BASO % 0.1 % (0.0-3.0); HEMOGLOBIN 12.3 g/dL (14.0-18.0); LYMPH % 6.4 % (22.0-35.0); MEAN CELL VOLUME 92.3 fl (80.0-105.0); MEAN CORPUSCULAR HEMOGLOBIN 30.4 pg (25.0-35.0); MEAN PLATELET VOLUME 10.5 fl (7.0-11.0); MONO # 0.8 (0.1-0.6); MONO % 5.6 % (1.0-6.0); RBC 4.04 10^6/uL (3.5-6.1); RED CELL DISTRIBUTION WIDTH 14.4 % (11.5-14.5); WHITE BLOOD COUNT 14.9 10^3/uL (4.5-11.0)
--- NOTE | 2018-07-03 06:35 | CP.CCUPN ---
<Jaime Cardenas - Last Filed: 07/03/18 10:20> CCU Subjective - Physician Review Subjective (Free Text): Jaime Cardenas DO. Critical Care Progress note Patient seen and examined at bedside, intubated. Tmax 100.4 and was given Ofirmev. No significant overnight events. CCU Objective - Vital Signs / Intake & Output Intake and Output (Last 8hrs): Intake & Output 07/02/18 07/02/18 07/03/18 14:59 22:59 06:59 Intake Total 189 1839 Output Total 650 Balance 189 1189 Intake: IV 189 1839 Left Hand 1700 Right Antecubital 139 Output: Urine 650 Urethral (Orosco) 650 - Physical Exam Physical Exam Limitations: Positive for: Altered Mental Status Head: Positive for: Atraumatic, Normocephalic Pupils: Positive for: Sluggish Extroacular Muscles: Positive for: EOMI Conjunctiva: Positive for: Normal Mouth: Positive for: Moist Mucous Membranes Nose (Internal): Positive for: Other (dried blood nticed, packing applied) Neck: Positive for: Normal Range of Motion. Negative for: MIDLINE TENDERNESS Respiratory/Chest: Positive for: Decreased Breath Sounds (R upper lung) Cardiovascular: Positive for: Regular Rate and Rhythm, Normal S1, S2. Negative for: Murmurs Abdomen: Negative for: Tenderness, Distention, Peritoneal Signs, Mass/Organomegaly Back: Positive for: Normal Inspection Upper Extremity: Positive for: Normal Inspection. Negative for: Cyanosis, Edema Lower Extremity: Positive for: Normal Inspection, NORMAL PULSES. Negative for: Edema, Cyanosis, Swelling, Erythema Neurological: Positive for: Other (sedated) Skin: Positive for: Warm, Dry, Normal Color. Negative for: Rashes Psychiatric: Positive for: Other (intubated) - Medications Active Medications: Active Medications Generic Name Dose Route Start Last Admin Trade Name Freq PRN Reason Stop Dose Admin Albuterol/Ipratropium 3 ml 07/01/18 17:28 Duoneb 3 Mg/0.5 Mg (3 Ml) Ud IH Q2H PRN Shortness of Breath Aspirin 81 mg 07/02/18 10:30 07/02/18 10:40 Ecotrin PO 81 mg DAILY ALIN Administration Atorvastatin Calcium 40 mg 07/02/18 17:00 07/02/18 17:37 Lipitor PO 40 mg DIN ALIN Administration Sodium Chloride 1,000 mls @ 150 mls/hr 07/02/18 16:44 07/02/18 17:36 Sodium Chloride 0.9% IV 150 mls/hr .Q6H40M ALIN Administration Lorazepam 2 mg 07/01/18 14:13 07/01/18 23:53 Ativan IVP 2 mg Q2H PRN Administration Anxiety Protocol Nicotine 1 patch 07/02/18 10:00 07/02/18 09:18 Nicoderm Cq TD 1 patch DAILY ALIN Administration Pantoprazole Sodium 40 mg 07/01/18 22:00 07/02/18 21:48 Protonix Inj IVP 40 mg Q12 ALIN Administration Prasugrel 10 mg 07/02/18 10:30 07/02/18 10:40 Effient PO 10 mg DAILY ALIN Administration - Patient Studies Lab Studies: Microbiology Studies 07/01/18 18:51 MRSA Culture (Admit) - Final Nose MRSA NOT DETECTED Lab Studies 07/03/18 07/02/18 07/02/18 Range/Units 05:20 14:30 11:15 APTT (26.9-38.3) Seconds pCO2 36 (35-45) mm/Hg pO2 105.0 H (80-100) mm/Hg HCO3 25.0 (21-28) mmol/L ABG pH 7.45 (7.35-7.45) ABG Total CO2 26.1 (22-28) mmol.L ABG O2 Saturation 98.9 H (95-98) % ABG O2 Content 20.6 (15-23) ML/dl ABG Base Excess 1.3 (-2.0-3.0) mmol/L ABG Hemoglobin 15.2 (11.7-17.4) g/dL ABG Carboxyhemoglobin 1.8 H (0.5-1.5) % POC ABG HHb (Measured) 1.1 (0-5) % ABG Methemoglobin 1.1 (0.0-3.0) % ABG O2 Capacity 20.8 (16-24) mL/dl Hgb O2 Saturation 96.0 (95.0-98.0) % FiO2 40.0 % Sodium (132-148) mmol/L Potassium (3.6-5.0) mmol/L Chloride (98-107) mmol/L Carbon Dioxide (21-33) mmol/L Anion Gap (10-20) BUN (7-21) mg/dL Creatinine (0.8-1.5) mg/dl Est GFR ( Amer) Est GFR (Non-Af Amer) POC Glucose (mg/dL) (65-110) mg/dL Random Glucose (70-110) mg/dL Hemoglobin A1c (4.2-6.5) % Calcium (8.4-10.5) mg/dL Phosphorus (2.5-4.5) mg/dL Magnesium (1.7-2.2) mg/dL Total Bilirubin (0.2-1.3) mg/dL AST (17-59) U/L ALT (7-56) U/L Alkaline Phosphatase (38-126) U/L Total Creatine Kinase 7571 H (35-230) U/L CK-MB (CK-2) 85.3 H (0.0-3.6) ng/mL CK-MB (CK-2) % 1.1 L (2.5-3.0) % Total Protein (5.8-8.3) g/dL Albumin (3.0-4.8) g/dL Globulin gm/dL Albumin/Globulin Ratio (1.1-1.8) Triglycerides (35-160) mg/dL Cholesterol (130-200) mg/dL HDL Cholesterol (29-60) mg/dL Procalcitonin (0.19-0.49) NG/ML TSH 3rd Generation (0.46-4.68) mIU/mL Ur L.pneumophila Ag Negative (NEGATIVE) 07/02/18 07/02/18 07/02/18 Range/Units 11:15 10:00 06:44 APTT 30.1 (26.9-38.3) Seconds pCO2 (35-45) mm/Hg pO2 (80-100) mm/Hg HCO3 (21-28) mmol/L ABG pH (7.35-7.45) ABG Total CO2 (22-28) mmol.L ABG O2 Saturation (95-98) % ABG O2 Content (15-23) ML/dl ABG Base Excess (-2.0-3.0) mmol/L ABG Hemoglobin (11.7-17.4) g/dL ABG Carboxyhemoglobin (0.5-1.5) % POC ABG HHb (Measured) (0-5) % ABG Methemoglobin (0.0-3.0) % ABG O2 Capacity (16-24) mL/dl Hgb O2 Saturation (95.0-98.0) % FiO2 % Sodium (132-148) mmol/L Potassium (3.6-5.0) mmol/L Chloride (98-107) mmol/L Carbon Dioxide (21-33) mmol/L Anion Gap (10-20) BUN (7-21) mg/dL Creatinine (0.8-1.5) mg/dl Est GFR ( Amer) Est GFR (Non-Af Amer) POC Glucose (mg/dL) 105 (65-110) mg/dL Random Glucose (70-110) mg/dL Hemoglobin A1c (4.2-6.5) % Calcium (8.4-10.5) mg/dL Phosphorus (2.5-4.5) mg/dL Magnesium (1.7-2.2) mg/dL Total Bilirubin (0.2-1.3) mg/dL AST (17-59) U/L ALT (7-56) U/L Alkaline Phosphatase (38-126) U/L Total Creatine Kinase (35-230) U/L CK-MB (CK-2) (0.0-3.6) ng/mL CK-MB (CK-2) % (2.5-3.0) % Total Protein (5.8-8.3) g/dL Albumin (3.0-4.8) g/dL Globulin gm/dL Albumin/Globulin Ratio (1.1-1.8) Triglycerides (35-160) mg/dL Cholesterol (130-200) mg/dL HDL Cholesterol (29-60) mg/dL Procalcitonin 0.86 H (0.19-0.49) NG/ML TSH 3rd Generation (0.46-4.68) mIU/mL Ur L.pneumophila Ag (NEGATIVE) 07/02/18 07/02/18 07/02/18 Range/Units 05:00 05:00 05:00 APTT (26.9-38.3) Seconds pCO2 (35-45) mm/Hg pO2 (80-100) mm/Hg HCO3 (21-28) mmol/L ABG pH (7.35-7.45) ABG Total CO2 (22-28) mmol.L ABG O2 Saturation (95-98) % ABG O2 Content (15-23) ML/dl ABG Base Excess (-2.0-3.0) mmol/L ABG Hemoglobin (11.7-17.4) g/dL ABG Carboxyhemoglobin (0.5-1.5) % POC ABG HHb (Measured) (0-5) % ABG Methemoglobin (0.0-3.0) % ABG O2 Capacity (16-24) mL/dl Hgb O2 Saturation (95.0-98.0) % FiO2 % Sodium 139 (132-148) mmol/L Potassium 3.8 (3.6-5.0) mmol/L Chloride 107 (98-107) mmol/L Carbon Dioxide 26 (21-33) mmol/L Anion Gap 10 (10-20) BUN 16 (7-21) mg/dL Creatinine 1.0 (0.8-1.5) mg/dl Est GFR ( Amer) > 60 Est GFR (Non-Af Amer) > 60 POC Glucose (mg/dL) (65-110) mg/dL Random Glucose 105 (70-110) mg/dL Hemoglobin A1c 5.5 (4.2-6.5) % Calcium 8.5 (8.4-10.5) mg/dL Phosphorus 2.5 (2.5-4.5) mg/dL Magnesium 1.7 (1.7-2.2) mg/dL Total Bilirubin 0.7 (0.2-1.3) mg/dL AST 485 H D (17-59) U/L ALT 180 H (7-56) U/L Alkaline Phosphatase 55 (38-126) U/L Total Creatine Kinase (35-230) U/L CK-MB (CK-2) (0.0-3.6) ng/mL CK-MB (CK-2) % (2.5-3.0) % Total Protein 6.5 (5.8-8.3) g/dL Albumin 3.8 (3.0-4.8) g/dL Globulin 2.7 gm/dL Albumin/Globulin Ratio 1.4 (1.1-1.8) Triglycerides 144 (35-160) mg/dL Cholesterol 175 (130-200) mg/dL HDL Cholesterol 36 (29-60) mg/dL Procalcitonin (0.19-0.49) NG/ML TSH 3rd Generation 0.55 (0.46-4.68) mIU/mL Ur L.pneumophila Ag (NEGATIVE) Laboratory Results - last 24 hr 07/02/18 07/02/18 07/02/18 05:00 05:00 05:00 APTT pCO2 pO2 HCO3 ABG pH ABG Total CO2 ABG O2 Saturation ABG O2 Content ABG Base Excess ABG Hemoglobin ABG Carboxyhemoglobin POC ABG HHb (Measured) ABG Methemoglobin ABG O2 Capacity Hgb O2 Saturation FiO2 Sodium 139 Potassium 3.8 Chloride 107 Carbon Dioxide 26 Anion Gap 10 BUN 16 Creatinine 1.0 Est GFR ( Amer) > 60 Est GFR (Non-Af Amer) > 60 POC Glucose (mg/dL) Random Glucose 105 Hemoglobin A1c 5.5 Calcium 8.5 Phosphorus 2.5 Magnesium 1.7 Total Bilirubin 0.7 AST 485 H D ALT 180 H Alkaline Phosphatase 55 Total Creatine Kinase CK-MB (CK-2) CK-MB (CK-2) % Total Protein 6.5 Albumin 3.8 Globulin 2.7 Albumin/Globulin Ratio 1.4 Triglycerides 144 Cholesterol 175 HDL Cholesterol 36 Procalcitonin TSH 3rd Generation 0.55 Ur L.pneumophila Ag 07/02/18 07/02/18 07/02/18 06:44 10:00 11:15 APTT 30.1 pCO2 pO2 HCO3 ABG pH ABG Total CO2 ABG O2 Saturation ABG O2 Content ABG Base Excess ABG Hemoglobin ABG Carboxyhemoglobin POC ABG HHb (Measured) ABG Methemoglobin ABG O2 Capacity Hgb O2 Saturation FiO2 Sodium Potassium Chloride Carbon Dioxide Anion Gap BUN Creatinine Est GFR ( Amer) Est GFR (Non-Af Amer) POC Glucose (mg/dL) 105 Random Glucose Hemoglobin A1c Calcium Phosphorus Magnesium Total Bilirubin AST ALT Alkaline Phosphatase Total Creatine Kinase CK-MB (CK-2) CK-MB (CK-2) % Total Protein Albumin Globulin Albumin/Globulin Ratio Triglycerides Cholesterol HDL Cholesterol Procalcitonin 0.86 H TSH 3rd Generation Ur L.pneumophila Ag 07/02/18 07/02/18 07/03/18 11:15 14:30 05:20 APTT pCO2 36 pO2 105.0 H HCO3 25.0 ABG pH 7.45 ABG Total CO2 26.1 ABG O2 Saturation 98.9 H ABG O2 Content 20.6 ABG Base Excess 1.3 ABG Hemoglobin 15.2 ABG Carboxyhemoglobin 1.8 H POC ABG HHb (Measured) 1.1 ABG Methemoglobin 1.1 ABG O2 Capacity 20.8 Hgb O2 Saturation 96.0 FiO2 40.0 Sodium Potassium Chloride Carbon Dioxide Anion Gap BUN Creatinine Est GFR ( Amer) Est GFR (Non-Af Amer) POC Glucose (mg/dL) Random Glucose Hemoglobin A1c Calcium Phosphorus Magnesium Total Bilirubin AST ALT Alkaline Phosphatase Total Creatine Kinase 7571 H CK-MB (CK-2) 85.3 H CK-MB (CK-2) % 1.1 L Total Protein Albumin Globulin Albumin/Globulin Ratio Triglycerides Cholesterol HDL Cholesterol Procalcitonin TSH 3rd Generation Ur L.pneumophila Ag Negative Radiology Impressions: Radiology Impressions Chest X-Ray 07/01/18 17:27 IMPRESSION: No active disease. Chest X-Ray 07/02/18 05:00 IMPRESSION: New right apical consolidation Chest X-Ray 07/02/18 08:24 IMPRESSION: No active disease. EKG/Cardiology Studies: Cardiology / EKG Studies 07/02/18 06:00 ELECTROCARDIOGRAM DAILY Comment: Reason For Exam: NSTEMI 07/02/18 16:45 ELECTROCARDIOGRAM DAILY Comment: Reason For Exam: chest pain Review of Systems - Review of Systems Systems not reviewed;Unavailable: Intubated Critical Care Progress Note - Ventilator Checklist Head of Bed 30 Degrees: Yes Daily Sedation Vacation: Yes Daily Assessment of Readiness to Wean: Yes Daily Spontaneous Breathing Trial: Yes PUD Prophalyxis: Yes DVT Prophylaxis: Yes Oral Care with Chlorhexidine Gluconate {CHG}: Yes - Vent Settings MODE:: PRVC TIDAL VOLUME:: 450 RESP RATE:: 18 FIO2:: 40 PEEP:: 5 - Extremities/Vascular Does the Patient have a Central Venous Catheter?: No Does the Patient have a [place]rosco Catheter?: Yes - Restraints Justification for Restraints: High risk for self extubation - Prophylaxis GI Prophylaxis GI: PPI - Prophylaxis DVT Prophylaxis DVT: Heparin SQ, SCDs Assessment/Plan - Assessment and Plan (Free Text) Assessment: 53 y/o male admitted to ICU s/p cardiac arrest with subsequent PCI with RCA stent place. Still intubated on PRVC Plan: Neuro: -Intubated. Not on any sedatives -maintain normothermia -CT head: no ICH -Video EEG: no seizure activity -neuro consulted Cardio: -cardiac arrest s/p PCI with RCA ANALISA -continue asa, effient -maintain MAP>65 -f/u echo -cardiology following Dr Jorge Mcfarlane: -continue PRVC 450/18/5/40 -vent weaning trial, mouth hygeine, DVT/GI ppx, head elevation 30 degree, sedation vacation -maintain O2>92% -duonebs prn GI: -LFT trending down -patient alcoholic, obese -d/c statins due to elevated LFT -f/u U/S abdomen Renal: -rhabdomyolysis with CPK trending down from 7571 to 4355 -continue IVF NS @150cc/hr -replete lytes as needed -UOP 1390 -maintain euvolemia, euglycemia -UDS positive for amphetamine, benzo ID: -still febrile -f/u cx blood, sputum -legionella negative -f/u strep A, flu a/b -procal 0.86 -continue zosyn -ID consulted Heme: -Hb stable -continue monitoring Prophylaxis: GI ppx Protonix q12 DVT SCD, Heparin sq Continue ICU management Full code Case reviewed and plan discussed with attending physician Dr Fox <Brendon Fox - Last Filed: 07/03/18 13:29> CCU Objective - Vital Signs / Intake & Output Vital Signs (Last 4 hours): Vital Signs Pulse BP Pulse Ox 07/03/18 12:00 88 143/99 H 98 07/03/18 11:30 88 136/92 H 96 07/03/18 11:00 89 145/103 H 95 07/03/18 10:31 100 H 151/102 H 91 L 07/03/18 10:00 107 H 159/99 H 89 L 07/03/18 09:30 98 H 137/91 H 97 Intake and Output (Last 8hrs): Intake & Output 07/02/18 07/03/18 07/03/18 22:59 06:59 14:59 Intake Total 1839 Output Total 650 Balance 1189 Intake: IV 1839 Left Hand 1700 Right Antecubital 139 Output: Urine 650 Urethral ([place]rosco) 650 - Medications Active Medications: Active Medications Generic Name Dose Route Start Last Admin Trade Name Freq PRN Reason Stop Dose Admin Albuterol/Ipratropium 3 ml 07/01/18 17:28 Duoneb 3 Mg/0.5 Mg (3 Ml) Ud IH Q2H PRN Shortness of Breath Aspirin 81 mg 07/02/18 10:30 07/03/18 09:49 Ecotrin PO 81 mg DAILY ALIN Administration Heparin Sodium (Porcine) 5,000 units 07/03/18 14:00 Heparin SC Q8 ALIN Protocol Sodium Chloride 1,000 mls @ 150 mls/hr 07/02/18 16:44 07/03/18 09:50 Sodium Chloride 0.9% IV 150 mls/hr .Q6H40M ALIN Administration Piperacillin Sod/Tazobactam Sod 100 mls @ 25 mls/hr 07/03/18 14:00 Zosyn 3.375 In Ns 100ml IVPB 07/11/18 14:01 Q8 ALIN Protocol Lorazepam 2 mg 07/01/18 14:13 07/01/18 23:53 Ativan IVP 2 mg Q2H PRN Administration Anxiety Protocol Metoprolol Tartrate 25 mg 07/03/18 12:00 Lopressor PO BID ALIN Nicotine 1 patch 07/02/18 10:00 07/03/18 09:49 Nicoderm Cq TD 1 patch DAILY ALIN Administration Pantoprazole Sodium 40 mg 07/01/18 22:00 07/03/18 09:49 Protonix Inj IVP 40 mg Q12 ALIN Administration Prasugrel 10 mg 07/02/18 10:30 07/03/18 09:54 Effient PO 10 mg DAILY ALIN Administration - Patient Studies Lab Studies: Microbiology Studies 07/02/18 14:30 Sputum Culture - Preliminary Trachasp Gram Positive Cocci 07/01/18 18:51 MRSA Culture (Admit) - Final Nose MRSA NOT DETECTED Lab Studies 07/03/18 07/03/18 07/03/18 Range/Units 06:15 06:15 05:20 WBC 14.9 H D (4.5-11.0) 10^3/uL RBC 4.04 (3.5-6.1) 10^6/uL Hgb 12.3 L (14.0-18.0) g/dL Hct 37.3 L (42.0-52.0) % MCV 92.3 (80.0-105.0) fl MCH 30.4 (25.0-35.0) pg MCHC 33.0 (31.0-37.0) g/dl RDW 14.4 (11.5-14.5) % Plt Count 156 (120.0-450.0) 10^3/uL MPV 10.5 (7.0-11.0) fl Neut % (Auto) 87.9 H (50.0-68.0) % Lymph % (Auto) 6.4 L (22.0-35.0) % [place] % (Auto) 5.6 (1.0-6.0) % Eos % (Auto) 0.0 L (1.5-5.0) % Baso % (Auto) 0.1 (0.0-3.0) % Lymph # (Auto) 1.0 L (1.2-3.4) [place] # (Auto) 0.8 H (0.1-0.6) Eos # (Auto) 0.0 (0.0-0.7) Baso # (Auto) 0.01 (0.0-2.0) K/mm3 Absolute Neuts (auto) 13.06 H (1.4-6.5) pCO2 36 (35-45) mm/Hg pO2 105.0 H (80-100) mm/Hg HCO3 25.0 (21-28) mmol/L ABG pH 7.45 (7.35-7.45) ABG Total CO2 26.1 (22-28) mmol.L ABG O2 Saturation 98.9 H (95-98) % ABG O2 Content 20.6 (15-23) ML/dl ABG Base Excess 1.3 (-2.0-3.0) mmol/L ABG Hemoglobin 15.2 (11.7-17.4) g/dL ABG Carboxyhemoglobin 1.8 H (0.5-1.5) % POC ABG HHb (Measured) 1.1 (0-5) % ABG Methemoglobin 1.1 (0.0-3.0) % ABG O2 Capacity 20.8 (16-24) mL/dl Hgb O2 Saturation 96.0 (95.0-98.0) % FiO2 40.0 % Sodium 136 (132-148) mmol/L Potassium 3.7 (3.6-5.0) mmol/L Chloride 106 (98-107) mmol/L Carbon Dioxide 26 (21-33) mmol/L Anion Gap 8 L (10-20) BUN 14 (7-21) mg/dL Creatinine 0.8 (0.8-1.5) mg/dl Est GFR ( Amer) > 60 Est GFR (Non-Af Amer) > 60 Random Glucose 133 H (70-110) mg/dL Calcium 8.1 L (8.4-10.5) mg/dL Phosphorus 1.7 L (2.5-4.5) mg/dL Magnesium 1.8 (1.7-2.2) mg/dL Total Bilirubin 0.9 (0.2-1.3) mg/dL AST 249 H D (17-59) U/L ALT 135 H (7-56) U/L Alkaline Phosphatase 48 (38-126) U/L Total Creatine Kinase 4355 H (35-230) U/L CK-MB (CK-2) 10.4 H (0.0-3.6) ng/mL CK-MB (CK-2) % 0.2 L (2.5-3.0) % Total Protein 6.3 (5.8-8.3) g/dL Albumin 3.5 (3.0-4.8) g/dL Globulin 2.8 gm/dL Albumin/Globulin Ratio 1.3 (1.1-1.8) Procalcitonin (0.19-0.49) NG/ML Ur L.pneumophila Ag (NEGATIVE) 07/02/18 07/02/18 07/02/18 Range/Units 14:30 11:15 10:00 WBC (4.5-11.0) 10^3/uL RBC (3.5-6.1) 10^6/uL Hgb (14.0-18.0) g/dL Hct (42.0-52.0) % MCV (80.0-105.0) fl MCH (25.0-35.0) pg MCHC (31.0-37.0) g/dl RDW (11.5-14.5) % Plt Count (120.0-450.0) 10^3/uL MPV (7.0-11.0) fl Neut % (Auto) (50.0-68.0) % Lymph % (Auto) (22.0-35.0) % [place] % (Auto) (1.0-6.0) % Eos % (Auto) (1.5-5.0) % Baso % (Auto) (0.0-3.0) % Lymph # (Auto) (1.2-3.4) [place] # (Auto) (0.1-0.6) Eos # (Auto) (0.0-0.7) Baso # (Auto) (0.0-2.0) K/mm3 Absolute Neuts (auto) (1.4-6.5) pCO2 (35-45) mm/Hg pO2 (80-100) mm/Hg HCO3 (21-28) mmol/L ABG pH (7.35-7.45) ABG Total CO2 (22-28) mmol.L ABG O2 Saturation (95-98) % ABG O2 Content (15-23) ML/dl ABG Base Excess (-2.0-3.0) mmol/L ABG Hemoglobin (11.7-17.4) g/dL ABG Carboxyhemoglobin (0.5-1.5) % POC ABG HHb (Measured) (0-5) % ABG Methemoglobin (0.0-3.0) % ABG O2 Capacity (16-24) mL/dl Hgb O2 Saturation (95.0-98.0) % FiO2 % Sodium (132-148) mmol/L Potassium (3.6-5.0) mmol/L Chloride (98-107) mmol/L Carbon Dioxide (21-33) mmol/L Anion Gap (10-20) BUN (7-21) mg/dL Creatinine (0.8-1.5) mg/dl Est GFR ( Amer) Est GFR (Non-Af Amer) Random Glucose (70-110) mg/dL Calcium (8.4-10.5) mg/dL Phosphorus (2.5-4.5) mg/dL Magnesium (1.7-2.2) mg/dL Total Bilirubin (0.2-1.3) mg/dL AST (17-59) U/L ALT (7-56) U/L Alkaline Phosphatase (38-126) U/L Total Creatine Kinase (35-230) U/L CK-MB (CK-2) 85.3 H (0.0-3.6) ng/mL CK-MB (CK-2) % 1.1 L (2.5-3.0) % Total Protein (5.8-8.3) g/dL Albumin (3.0-4.8) g/dL Globulin gm/dL Albumin/Globulin Ratio (1.1-1.8) Procalcitonin 0.86 H (0.19-0.49) NG/ML Ur L.pneumophila Ag Negative (NEGATIVE) Laboratory Results - last 24 hr 07/02/18 07/02/18 07/02/18 10:00 11:15 14:30 WBC RBC Hgb Hct MCV MCH MCHC RDW Plt Count MPV Neut % (Auto) Lymph % (Auto) [place] % (Auto) Eos % (Auto) Baso % (Auto) Lymph # (Auto) [place] # (Auto) Eos # (Auto) Baso # (Auto) Absolute Neuts (auto) pCO2 pO2 HCO3 ABG pH ABG Total CO2 ABG O2 Saturation ABG O2 Content ABG Base Excess ABG Hemoglobin ABG Carboxyhemoglobin POC ABG HHb (Measured) ABG Methemoglobin ABG O2 Capacity Hgb O2 Saturation FiO2 Sodium Potassium Chloride Carbon Dioxide Anion Gap BUN Creatinine Est GFR ( Amer) Est GFR (Non-Af Amer) Random Glucose Calcium Phosphorus Magnesium Total Bilirubin AST ALT Alkaline Phosphatase Total Creatine Kinase CK-MB (CK-2) 85.3 H CK-MB (CK-2) % 1.1 L Total Protein Albumin Globulin Albumin/Globulin Ratio Procalcitonin 0.86 H Ur L.pneumophila Ag Negative 07/03/18 07/03/18 07/03/18 05:20 06:15 06:15 WBC 14.9 H D RBC 4.04 Hgb 12.3 L Hct 37.3 L MCV 92.3 MCH 30.4 MCHC 33.0 RDW 14.4 Plt Count 156 MPV 10.5 Neut % (Auto) 87.9 H Lymph % (Auto) 6.4 L [place] % (Auto) 5.6 Eos % (Auto) 0.0 L Baso % (Auto) 0.1 Lymph # (Auto) 1.0 L [place] # (Auto) 0.8 H Eos # (Auto) 0.0 Baso # (Auto) 0.01 Absolute Neuts (auto) 13.06 H pCO2 36 pO2 105.0 H HCO3 25.0 ABG pH 7.45 ABG Total CO2 26.1 ABG O2 Saturation 98.9 H ABG O2 Content 20.6 ABG Base Excess 1.3 ABG Hemoglobin 15.2 ABG Carboxyhemoglobin 1.8 H POC ABG HHb (Measured) 1.1 ABG Methemoglobin 1.1 ABG O2 Capacity 20.8 Hgb O2 Saturation 96.0 FiO2 40.0 Sodium 136 Potassium 3.7 Chloride 106 Carbon Dioxide 26 Anion Gap 8 L BUN 14 Creatinine 0.8 Est GFR ( Amer) > 60 Est GFR (Non-Af Amer) > 60 Random Glucose 133 H Calcium 8.1 L Phosphorus 1.7 L Magnesium 1.8 Total Bilirubin 0.9 AST 249 H D ALT 135 H Alkaline Phosphatase 48 Total Creatine Kinase 4355 H CK-MB (CK-2) 10.4 H CK-MB (CK-2) % 0.2 L Total Protein 6.3 Albumin 3.5 Globulin 2.8 Albumin/Globulin Ratio 1.3 Procalcitonin Ur L.pneumophila Ag Radiology Impressions: Radiology Impressions Chest X-Ray 07/03/18 05:00 IMPRESSION: No active disease. EKG/Cardiology Studies: Cardiology / EKG Studies 07/02/18 16:45 ELECTROCARDIOGRAM DAILY Comment: Reason For Exam: chest pain Assessment/Plan - Assessment and Plan (Free Text) Plan: Patient seen and examined on rounds with resident, agree with note with following additions/exceptions: Patient is 53yo male with PMhx of obesity, polysubstance abuse, EtOH abuse, HTN, smoker, a/w s/p Vfib cardiac arrest, s/p PCI with RCA stent on IABP Currently afebrile, HD stable, comfortable in NAD Sedation has been shut off, will attempt CPAP trial if more awake VEEG obtained, CTH pending Patient has cough, gag reflex, but is not arousable Labs, imaging, chart reviewed HH has been stable Cardiology following Neurology consulted Syncope HTN VFIB arrest s/p ROSC s/p PCI CAD rule out anoxic brain injury Recommend: - cont with vent support, low tidal vol ventilation, duonebs PRN, daily sedation vacation, CPAP trials, ABG, CXR - Nicotine Patch 21g - Panculture, UCX, BCx, Procal, start on Zosyn, Vanco - ASA, Statin, Prasugrel - VEEG, Neuro eval - follow up cardio - FS control - Check HgBA1C, TSH - GI ppx - DVT ppx - Monitor in MICU Critical care time 35 minutes
[2018-07-03 07:19] LABS: ALB/GLOB RATIO 1.3 (1.1-1.8); ALBUMIN 3.5 g/dL (3.0-4.8); ALT/SGPT 135 U/L (7-56); AST/SGOT 249 U/L (17-59); BLOOD UREA NITROGEN 14 mg/dL (7-21); CALCIUM 8.1 mg/dL (8.4-10.5); GFR NON-AFRICAN AMERICAN > 60
[2018-07-03] MEDS ORDERED: Piperacillin/Tazobact 3.375 gm 100 ML IVPB SCH (07:45)
[2018-07-03 07:56] LABS: CK MB% 0.2 % (2.5-3.0); CK-MB 10.4 ng/mL (0.0-3.6)
--- NOTE | 2018-07-03 09:24 | RAD ---
Date of service: 07/03/2018 HISTORY: on vent COMPARISON: No prior. FINDINGS: LUNGS: No active pulmonary disease. PLEURA: No significant pleural effusion identified, no pneumothorax apparent. CARDIOVASCULAR: No aortic atherosclerotic calcification present. Normal cardiac size. No pulmonary vascular congestion. OSSEOUS STRUCTURES: No significant abnormalities. VISUALIZED UPPER ABDOMEN: Normal. OTHER FINDINGS: Endotracheal tube and nasogastric tube in satisfactory position IMPRESSION: No active disease.
[2018-07-03 09:42] VITALS: BMI 35.2
[2018-07-03] MEDS: Sodium Chloride 0.9% 1,000 ML IV SCH ×2 (09:50→15:27)
--- NOTE | 2018-07-03 09:52 | PCM.VEEG ---
Video EEG - Procedure Start Date: 07/02/18 Start Time: 16:45 End Date: 07/03/18 End Time: 08:25 Technical Summary: DATA ACQUISITION: This was a multichannel inpatient video-EEG, a minimum of 22 channels were uti lized, performed in accordance with recommendations specified by the [place] [employer] (Ria Mckenzie et al. ACNS Guideline 1: Minimum Technical Requirements for Performing Clinical Electroencephalography. Journal of Clinical Neurophysiology 2016;33:303-7). The 10-20 electrode placement system was utilized in accordance with guidelines detailed by the International Federation of Clinical Neurophysiology (Cheo Remy et al. The Ten-Twenty Electrode System of the International Federation. Recommendations for the Practice of Clinical Neurophysiology: Guidelines of the International Federation of Clinical Physiology 1999; EEG Suppl. 52.). DATA REVIEW / SPIKE DETECTION / DIGITAL ANALYSIS: The entire EEG was scanned and reviewed. Synchronized audio and video recording were reviewed at the time of each alarm and whenever an abnormality or suspicious activity was noted. The entire recording was analyzed utilizing an automated digital spike and seizure analysis program and all automatic spike and seizure detections were manually reviewed. A compressed spectral array was displayed and reviewed alongside the raw EEG tracings. In addition, further analysis of the EEG was performed when abnormalities were identified, including montage changes, dipole source localization, and frequency band identification. Video portion of the study is necessary to correlate abnormal EEG activity with clinical behavior. This study was attended 24 hours per day. - Interpretation Description of the study: Indication; cardiac arrest, status epilepticus EEG Finding during wakefulness: On the entire study was not discernible awake EEG background, during this time the EEG showed diffuse bilateral attenuation with frequencies in the 4 to 5 Hz. When he was stimulated there was bilateral frontal artifact, with minimal reactivity. There was intermittent bifrontal rhythmic delta slowing at 3 to 4 Hz lasting 3 to 6 seconds mainly seen during on and off. EEG Finding during sleep: Normal sleep architecture was not seen, when the patient was clinically asleep the EEG showed diffuse bilateral slowing at 4 to 5 Hz. Interictal non-epileptiform abnormalities: bi-temporal attenuated 4 to 5 hz slowing seen. Interictal epileptiform abnormalities: None Ictal epileptiform abnormalities: No seizures, No PB activations - Impression Impression: This is an abnormal video EEG, monitoring study, due to the presence of: 1- Severe background slowing/attenuation . No seizures Not in status epilepticus INTERPRETATION: The above mentioned findings are in keeping with moderate non specific diffuse disturbance of cortical activity. 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 The findings do not suggest a specific etiology
--- NOTE | 2018-07-03 12:28 | PN ---
DATE: 07/03/2018 SUBJECTIVE: I saw him in the Intensive Care Unit. He is still on the ventilator. He is not doing that much better. He is on Ativan, DuoNebs, Ecotrin, Effient, Lipitor, Nicoderm, Protonix, IV fluids and Zosyn. PHYSICAL EXAMINATION: VITAL SIGNS: Temperature 100.4, 106 pulse, 21 respiratory rate, 98% O2 sat on 48%. HEAD: Atraumatic, normocephalic. HEART: Regular rate. LUNGS: Decreased breath sounds. ABDOMEN: Soft, obese. EXTREMITIES: No edema. LABORATORY DATA: He is in trouble. He has 14.9 white count, 12.3 hemoglobin, 37.3 hematocrit, 136 platelets. His lactate dropped to 4.1. Sodium 136, potassium 3.7, BUN 14, creatinine 0.8, GFR is greater than 60, sugar is 133, calcium is 8.1, phosphorous 1.7, magnesium 1.8, total bili is 0.9, AST is 249, ALT is 135, alk phos 48. His total creatine kinase jumped to 4355, total protein 6.3. Procalcitonin is high at 0.86. TSH is 0.55. He was positive for amphetamines and benzodiazepines. He is being seen by multiple doctors, learning design specialist, leak patcher, Infectious Disease. Chest x-ray was normal. Neurology. He is in trouble after 5 codes, refused to stay, then had an emergency catheterization and a stent placement at 100% RCA. Ministerio Wan DO
--- NOTE | 2018-07-03 14:38 | CP.PCM.CON ---
<Nic Bae - Last Filed: 07/03/18 14:41> History of Present Illness - History of Present Illness History of Present Illness: Nic Bae D.O. PGY-3, Internal Medicine Resident, Infectious Disease Consultation Note 53-year-old male with a past medical history alcohol abuse, obesity, hypertension, and tobacco abuse who presented to [facility] for complaints of a syncopal episode. Patient was found to have an elevated troponin but refused a cardiac catheterization. Patient suffered cardiac arrest while in ultrasound, V. fib, and was subsequently taken to the Utilization Manager with stenting of the RCA and placement of intra-aortic balloon pump. Infectious disease was consulted for sepsis. Patient was seen and examined at bedside. Currently intubated but not sedated. Unable to obtain history. Most history obtained from ICU team and chart. Review of Systems - Review of Systems Systems not reviewed;Unavailable: Intubated Past Patient History - Infectious Disease Hx of Infectious Diseases: None - Past Social History Smoking Status: Heavy Smoker > 10 Cigarettes Daily - CARDIAC Hx Cardiac Disorders: Yes Hx Hypertension: Yes - PULMONARY Hx Respiratory Disorders: No - NEUROLOGICAL Hx Neurological Disorder: No - HEENT Hx HEENT Problems: No - RENAL Hx Chronic Kidney Disease: No - ENDOCRINE/METABOLIC Hx Endocrine Disorders: No - HEMATOLOGICAL/ONCOLOGICAL Hx Blood Disorders: No - INTEGUMENTARY Hx Dermatological Problems: No - MUSCULOSKELETAL/RHEUMATOLOGICAL Hx Musculoskeletal Disorders: No - GASTROINTESTINAL Hx Gastrointestinal Disorders: No - GENITOURINARY/GYNECOLOGICAL Hx Genitourinary Disorders: No - PSYCHIATRIC Hx Psychophysiologic Disorder: No Hx Substance Use: No - SURGICAL HISTORY Hx Surgeries: No Meds Allergies/Adverse Reactions: Allergies Allergy/AdvReac Type Severity Reaction Status Date / Time No Known Allergies Allergy Verified 07/01/18 15:31 - Medications Medications: Current Medications Albuterol/Ipratropium (Duoneb 3 Mg/0.5 Mg (3 Ml) Ud) 3 ml IH Q2H PRN PRN Reason: Shortness of Breath Aspirin (Ecotrin) 81 mg PO DAILY [facility] Last Admin: 07/03/18 09:49 Dose: 81 mg Heparin Sodium (Porcine) (Heparin) 5,000 units SC Q8 [facility]; Protocol Sodium Chloride (Sodium Chloride 0.9%) 1,000 mls @ 150 mls/hr IV .Q6H40M [facility] Last Admin: 07/03/18 09:50 Dose: 150 mls/hr Piperacillin Sod/Tazobactam Sod (Zosyn 3.375 In Ns 100ml) 100 mls @ 25 mls/hr IVPB Q8 [facility]; Protocol Stop: 07/11/18 14:01 Lorazepam (Ativan) 2 mg IVP Q2H PRN; Protocol PRN Reason: Anxiety Last Admin: 07/01/18 23:53 Dose: 2 mg Metoprolol Tartrate (Lopressor) 25 mg PO BID [facility] Nicotine (Nicoderm Cq) 1 patch TD DAILY [facility] Last Admin: 07/03/18 09:49 Dose: 1 patch Pantoprazole Sodium (Protonix Inj) 40 mg IVP Q12 [facility] Last Admin: 07/03/18 09:49 Dose: 40 mg Prasugrel (Effient) 10 mg PO DAILY [facility] Last Admin: 07/03/18 09:54 Dose: 10 mg Physical Exam - Constitutional Appears: No Acute Distress - Head Exam Head Exam: NORMOCEPHALIC - Eye Exam Eye Exam: absent: Scleral icterus - ENT Exam ENT Exam: Mucous Membranes Moist - Neck Exam Neck exam: Positive for: Normal Inspection - Respiratory Exam Respiratory Exam: Clear to Auscultation Bilateral. absent: Rales, Rhonchi, Wheezes - Cardiovascular Exam Cardiovascular Exam: RRR, +S1, +S2. absent: Gallop, Rubs - GI/Abdominal Exam GI & Abdominal Exam: Normal Bowel Sounds, Soft. absent: Distended, Tenderness - Extremities Exam Extremities exam: Negative for: calf tenderness, pedal edema - Neurological Exam Additional comments: intubated - Skin Skin Exam: Dry, Warm Results - Vital Signs Recent Vital Signs: Last Vital Signs Temp 99.5 F 07/03/18 09:00 Pulse 88 07/03/18 12:00 Resp 21 07/03/18 07:31 BP 143/99 H 07/03/18 12:00 Pulse Ox 98 07/03/18 12:00 - Labs Result Diagrams: 07/03/18 06:15 07/03/18 06:15 Labs: Laboratory Results - last 24 hr 07/02/18 07/02/18 07/03/18 10:00 14:30 05:20 WBC RBC Hgb Hct MCV MCH MCHC RDW Plt Count MPV Neut % (Auto) Lymph % (Auto) [place] % (Auto) Eos % (Auto) Baso % (Auto) Lymph # (Auto) [place] # (Auto) Eos # (Auto) Baso # (Auto) Absolute Neuts (auto) pCO2 36 pO2 105.0 H HCO3 25.0 ABG pH 7.45 ABG Total CO2 26.1 ABG O2 Saturation 98.9 H ABG O2 Content 20.6 ABG Base Excess 1.3 ABG Hemoglobin 15.2 ABG Carboxyhemoglobin 1.8 H POC ABG HHb (Measured) 1.1 ABG Methemoglobin 1.1 ABG O2 Capacity 20.8 Hgb O2 Saturation 96.0 FiO2 40.0 Sodium Potassium Chloride Carbon Dioxide Anion Gap BUN Creatinine Est GFR ( Amer) Est GFR (Non-Af Amer) Random Glucose Calcium Phosphorus Magnesium Total Bilirubin AST ALT Alkaline Phosphatase Total Creatine Kinase CK-MB (CK-2) CK-MB (CK-2) % Total Protein Albumin Globulin Albumin/Globulin Ratio Procalcitonin 0.86 H Ur L.pneumophila Ag Negative 07/03/18 07/03/18 06:15 06:15 WBC 14.9 H D RBC 4.04 Hgb 12.3 L Hct 37.3 L MCV 92.3 MCH 30.4 MCHC 33.0 RDW 14.4 Plt Count 156 MPV 10.5 Neut % (Auto) 87.9 H Lymph % (Auto) 6.4 L D[place]y % (Auto) 5.6 Eos % (Auto) 0.0 L Baso % (Auto) 0.1 Lymph # (Auto) 1.0 L [place]y # (Auto) 0.8 H Eos # (Auto) 0.0 Baso # (Auto) 0.01 Absolute Neuts (auto) 13.06 H pCO2 pO2 HCO3 ABG pH ABG Total CO2 ABG O2 Saturation ABG O2 Content ABG Base Excess ABG Hemoglobin ABG Carboxyhemoglobin POC ABG HHb (Measured) ABG Methemoglobin ABG O2 Capacity Hgb O2 Saturation FiO2 Sodium 136 Potassium 3.7 Chloride 106 Carbon Dioxide 26 Anion Gap 8 L BUN 14 Creatinine 0.8 Est GFR ( Amer) > 60 Est GFR (Non-Af Amer) > 60 Random Glucose 133 H Calcium 8.1 L Phosphorus 1.7 L Magnesium 1.8 Total Bilirubin 0.9 AST 249 H D ALT 135 H Alkaline Phosphatase 48 Total Creatine Kinase 4355 H CK-MB (CK-2) 10.4 H CK-MB (CK-2) % 0.2 L Total Protein 6.3 Albumin 3.5 Globulin 2.8 Albumin/Globulin Ratio 1.3 Procalcitonin Ur L.pneumophila Ag Assessment & Plan - Assessment and Plan (Free Text) Assessment: 53-year-old male with a past medical history alcohol abuse, obesity, hypertension, and tobacco abuse who presented to [facility] for complaints of a syncopal episode. Patient was found to have an elevated troponin but refused a cardiac catheterization. Patient suffered cardiac arrest while in ultrasound, V. fib, and was subsequently taken to the Utilization Manager with stenting of the RCA and placement of intra-aortic balloon pump. Infectious disease was consulted for sepsis. Plan: Sepsis, unclear source, likely secondary to aspiration pneumonia versus possible urinary tract infection Cardiac arrest CAD status post PCI Hypertension Tobacco abuse Etiology of sepsis is unclear, however at this time patient does have a fever 100.4, tachycardia, tachypnea, and leukocytosis HIV pending Pancultured Urine pending Chest x-ray reviewed, does not appear to have any disease however this can be negative acutely We will repeat pro-calcitonin although already has 1 elevated at 0.86 Pending abdomen ultrasound which will help elucidate any possible intra- abdominal pathologies Empirically on Zosyn day 2 Discussed with ICU team We will follow with you Patient was seen and examined and case to be discussed with attending physician. Thank you for the pleasure of participating in the care of this interesting patient. - Date & Time Date: 07/03/18 Time: 10:05 <Colton Michelle - Last Filed: 07/03/18 19:05> Meds - Medications Medications: Current Medications Albuterol/Ipratropium (Duoneb 3 Mg/0.5 Mg (3 Ml) Ud) 3 ml IH Q2H PRN PRN Reason: Shortness of Breath Aspirin (Ecotrin) 81 mg PO DAILY [facility] Last Admin: 07/03/18 09:49 Dose: 81 mg Heparin Sodium (Porcine) (Heparin) 5,000 units SC Q8 [facility]; Protocol Last Admin: 07/03/18 15:23 Dose: 5,000 units Sodium Chloride (Sodium Chloride 0.9%) 1,000 mls @ 150 mls/hr IV .Q6H40M [facility] Last Admin: 07/03/18 15:27 Dose: 150 mls/hr Piperacillin Sod/Tazobactam Sod (Zosyn 3.375 In Ns 100ml) 100 mls @ 25 mls/hr IVPB Q8 [facility]; Protocol Stop: 07/11/18 14:01 Last Admin: 07/03/18 15:23 Dose: 25 mls/hr Lorazepam (Ativan) 2 mg IVP Q2H PRN; Protocol PRN Reason: Anxiety Last Admin: 07/01/18 23:53 Dose: 2 mg Metoprolol Tartrate (Lopressor) 25 mg PO BID [facility] Last Admin: 07/03/18 17:29 Dose: 25 mg Nicotine (Nicoderm Cq) 1 patch TD DAILY [facility] Last Admin: 07/03/18 09:49 Dose: 1 patch Pantoprazole Sodium (Protonix Inj) 40 mg IVP Q12 [facility] Last Admin: 07/03/18 09:49 Dose: 40 mg Prasugrel (Effient) 10 mg PO DAILY [facility] Last Admin: 07/03/18 09:54 Dose: 10 mg Thiamine HCl (Vitamin B1 Tab) 500 mg PO DAILY [facility] Stop: 07/10/18 10:01 Results - Vital Signs Recent Vital Signs: Last Vital Signs Temp 99.5 F 07/03/18 09:00 Pulse 83 07/03/18 17:29 Resp 21 07/03/18 07:31 BP 139/89 07/03/18 17:29 Pulse Ox 98 07/03/18 12:00 - Labs Result Diagrams: 07/03/18 06:15 07/03/18 06:15 Labs: Laboratory Results - last 24 hr 07/02/18 07/03/18 07/03/18 14:30 05:20 06:15 WBC 14.9 H D RBC 4.04 Hgb 12.3 L Hct 37.3 L MCV 92.3 MCH 30.4 MCHC 33.0 RDW 14.4 Plt Count 156 MPV 10.5 Neut % (Auto) 87.9 H Lymph % (Auto) 6.4 L Dooly % (Auto) 5.6 Eos % (Auto) 0.0 L Baso % (Auto) 0.1 Lymph # (Auto) 1.0 L Dooly # (Auto) 0.8 H Eos # (Auto) 0.0 Baso # (Auto) 0.01 Absolute Neuts (auto) 13.06 H pCO2 36 pO2 105.0 H HCO3 25.0 ABG pH 7.45 ABG Total CO2 26.1 ABG O2 Saturation 98.9 H ABG O2 Content 20.6 ABG Base Excess 1.3 ABG Hemoglobin 15.2 ABG Carboxyhemoglobin 1.8 H POC ABG HHb (Measured) 1.1 ABG Methemoglobin 1.1 ABG O2 Capacity 20.8 Hgb O2 Saturation 96.0 FiO2 40.0 Sodium Potassium Chloride Carbon Dioxide Anion Gap BUN Creatinine Est GFR ( Amer) Est GFR (Non-Af Amer) Random Glucose Calcium Phosphorus Magnesium Total Bilirubin AST ALT Alkaline Phosphatase Total Creatine Kinase CK-MB (CK-2) CK-MB (CK-2) % Total Protein Albumin Globulin Albumin/Globulin Ratio Procalcitonin Urine Color Urine Appearance Urine pH Ur Specific [place] Urine Protein Urine Glucose (UA) Urine Ketones Urine Blood Urine Nitrate Urine Bilirubin Urine Urobilinogen Ur Leukocyte Esterase Urine RBC Urine WBC Ur L.pneumophila Ag Negative 07/03/18 07/03/18 07/03/18 06:15 11:50 12:00 WBC RBC Hgb Hct MCV MCH MCHC RDW Plt Count MPV Neut % (Auto) Lymph % (Auto) D[place]y % (Auto) Eos % (Auto) Baso % (Auto) Lymph # (Auto) [place]y # (Auto) Eos # (Auto) Baso # (Auto) Absolute Neuts (auto) pCO2 pO2 HCO3 ABG pH ABG Total CO2 ABG O2 Saturation ABG O2 Content ABG Base Excess ABG Hemoglobin ABG Carboxyhemoglobin POC ABG HHb (Measured) ABG Methemoglobin ABG O2 Capacity Hgb O2 Saturation FiO2 Sodium 136 Potassium 3.7 Chloride 106 Carbon Dioxide 26 Anion Gap 8 L BUN 14 Creatinine 0.8 Est GFR ( Amer) > 60 Est GFR (Non-Af Amer) > 60 Random Glucose 133 H Calcium 8.1 L Phosphorus 1.7 L Magnesium 1.8 Total Bilirubin 0.9 AST 249 H D ALT 135 H Alkaline Phosphatase 48 Total Creatine Kinase 4355 H CK-MB (CK-2) 10.4 H CK-MB (CK-2) % 0.2 L Total Protein 6.3 Albumin 3.5 Globulin 2.8 Albumin/Globulin Ratio 1.3 Procalcitonin 0.73 H Urine Color Yellow Urine Appearance Slight-cloudy Urine pH 6.5 Ur Specific [place] 1.020 Urine Protein Trace H Urine Glucose (UA) Negative Urine Ketones 15 H Urine Blood Moderate H Urine Nitrate Negative Urine Bilirubin Negative Urine Urobilinogen 2.0 H Ur Leukocyte Esterase Negative Urine RBC 2 - 5 H Urine WBC 0 - 2 Ur L.pneumophila Ag Attending/Attestation - Attestation I have personally seen and examined this patient.: Yes I have fully participated in the care of the patient.: Yes I have reviewed all pertinent clinical information: Yes
--- NOTE | 2018-07-03 14:42 | US ---
Date of service: 07/03/2018 HISTORY: LFT COMPARISON: None. TECHNIQUE: Sonographic evaluation of the abdomen. FINDINGS: LIVER: Measures cm. Heterogeneous echogenicity of the liver parenchyma. No mass. No intrahepatic bile duct dilatation. GALLBLADDER: Unremarkable. No gallstones. COMMON BILE DUCT: Measures mm. No stones. No dilatation. PANCREAS: Unremarkable as visualized. No mass. No ductal dilatation. RIGHT KIDNEY: Measures cm. Normal echogenicity. No calculus, mass, or hydronephrosis. LEFT KIDNEY: Measures cm. Normal echogenicity. No calculus, mass, or hydronephrosis. SPLEEN: Normal in size and contour. No mass. AORTA: No aneurysmal dilatation. IVC: Unremarkable. OTHER FINDINGS: None. IMPRESSION: Fibro/fatty infiltration of the liver.
[2018-07-03] MEDS ORDERED: Thiamine 100 mg/ml Inj IM SCH (15:15)
[2018-07-03] MEDS: Piperacillin/Tazobact 3.375 gm 100 ML IVPB SCH ×2 (15:23→21:36)
--- NOTE | 2018-07-03 16:47 | CT ---
Date of service: 07/03/2018 PROCEDURE: CT HEAD WITHOUT CONTRAST. HISTORY: post cardiac arrest COMPARISON: 07/01/2018 TECHNIQUE: Axial computed tomography images were obtained through the head/brain without intravenous contrast. Radiation dose: Total exam DLP = 1058.42 mGy-cm. This CT exam was performed using one or more of the following dose reduction techniques: Automated exposure control, adjustment of the mA and/or kV according to patient size, and/or use of iterative reconstruction technique. FINDINGS: HEMORRHAGE: No intracranial hemorrhage. BRAIN: Diffuse cerebral edema consistent with hypoxic brain injury. There is partial loss of the normal gonzales/white matter differentiation. There is narrowing of the sulci diffusely as a result of the diffuse edema. There is no evidence of vascular territorial infarct. VENTRICLES: There is no hydrocephalus. There is no midline shift. The perimesencephalic cisterns are preserved. CALVARIUM: Unremarkable. PARANASAL SINUSES: There is extensive opacity of the ethmoid, sphenoid and maxillary sinuses. There is an air-fluid level in the right maxillary antrum and in the sphenoid sinus. MASTOID AIR CELLS: Unremarkable as visualized. No inflammatory changes. OTHER FINDINGS: Ciara tracheal and orogastric tubes are noted. IMPRESSION: Findings consistent with diffuse hypoxic brain injury. No evidence of vascular territorial infarct. No evidence of herniation.
--- NOTE | 2018-07-03 17:09 | PN ---
DATE: 07/03/[address] Devonte Patel. SUBJECTIVE: The patient is currently off sedation, he is on a ventilator, off Dobutrex and off amiodarone. No reported ventricular tachycardia. No reported hypotension. OBJECTIVE: VITAL SIGNS: Blood pressure 127/84, heart rate 99, temperature 100.4. HEENT: Normocephalic. CHEST: Minimal rhonchi. HEART: S1 and S2 regular. EXTREMITIES: No edema. No palpable hematoma or audible bruit in the right groin. LABORATORY DATA: Hemoglobin and hematocrit 12.3 and 37.3, white count 14.9, platelet count 156,000. Today's SMA-7 was within normal limits except for glucose of 133 and anion gap of 8. Phosphorus below normal at 1.7 and calcium below normal at 8.1. Total CPK today is 4355. EEG nonspecific diffuse disturbance of the cortical activity. Yesterday's EKG revealed sinus tachycardia at rate of 108, LVH with repolarization changes, inferior infarct of indeterminate age. Urine drug screen was positive for amphetamines and benzodiazepines. ASSESSMENT: 1. Status post cardiac arrest with ventricular fibrillation. 2. Status post percutaneous coronary intervention to total occlusion of the right coronary artery. 3. Hypertension. 4. Consider underlying chronic obstructive lung disease. 5. Rule out underlying sepsis. RECOMMENDATIONS: Continue aspirin 81 mg once a day, Effient 10 mg once a day via nasogastric tube, subcutaneous heparin 5000 units every 8 hours, normal saline at 150 mL an hour, Zosyn at 3.375 g every 8 hours. Start Lopressor at 25 mg twice a day and I would review the echocardiography study performed yesterday. Case was discussed with the medical team. Corey Yang MD
[2018-07-03 17:33] LABS: PH,URINE 6.5 (4.7-8.0); URINE APPEARANCE SLIGHT-CLOUDY (CLEAR); URINE BILIRUBIN NEGATIVE (NEGATIVE); URINE BLOOD MODERATE (NEGATIVE); URINE COLOR YELLOW (YELLOW); URINE GLUCOSE (UA) NEGATIVE (NEGATIVE); URINE LEUKOCYTE ESTERASE NEGATIVE Leu/uL (NEGATIVE); URINE PROTEIN TRACE mg/dL (<30 mg/dL)
[2018-07-03 17:37] LABS: URINE WBC 0 - 2 /hpf (0-6)
--- NOTE | 2018-07-03 21:45 | CON ---
DATE: 07/03/2018 HISTORY OF PRESENT ILLNESS: This is a 53-year-old male with a past medical history of hypertension and came to the hospital for loss of consciousness. The patient was at work and began feeling dizzy and collapsed,so brought him to the hospital and was experiencing some chest pressure and dizziness. Pharmacy Sales Assistant took him to OR and cardiac shipyard laborer and put a stent. The patient began unresponsive in ER and coded, called to evaluate the patient. PAST MEDICAL HISTORY: As above. SOCIAL HISTORY: Smokes and drinks. History from the chart. PHYSICAL EXAMINATION VITAL SIGNS: Blood pressure 133/90. HEENT: The patient is on a ventilatory support. NEUROLOGIC: Unresponsive, not following commands, does not open eyes to a verbal command. No spontaneous movement of the extremities. Both plantars are down going. Sensory; not intact. Cerebellar gait deferred. IMPRESSION: Encephalopathy, possibly hypoxic and CAT scan of the head was done which was reported negative. PLAN: Continue present management. We will follow up. PROGNOSIS: Poor. Sven King MD
[2018-07-04] MEDS: Sodium Chloride 0.9% 1,000 ML IV SCH ×4 (03:25→18:00)
[2018-07-04 06:04] LABS: ARTERIAL BLOOD GAS HEMOGLOBIN 13.8 g/dL (11.7-17.4); ARTERIAL BLOOD GAS O2 CAPACITY 18.9 mL/dl (16-24); ARTERIAL BLOOD GAS O2 CONTENT 18.5 ML/dl (15-23); ARTERIAL BLOOD GAS O2 SAT 97.9 % (95-98); ARTERIAL BLOOD GAS PCO2 31 mm/Hg (35-45); ARTERIAL BLOOD GAS PH 7.46 (7.35-7.45)
[2018-07-04] MEDS: Piperacillin/Tazobact 3.375 gm 100 ML IVPB SCH ×3 (06:34→22:12)
[2018-07-04] MEDS: Albuterol-Ipratrop 3 mg / 0.5 (3 ml) UD IH PRN (08:16)
[2018-07-04 10:56] LABS: BASO # 0.01 K/mm3 (0.0-2.0); BASO % 0.1 % (0.0-3.0); EOS % 0.1 % (1.5-5.0); HEMOGLOBIN 12.6 g/dL (14.0-18.0); LYMPH # 0.9 (1.2-3.4); LYMPH % 7.3 % (22.0-35.0); MEAN CELL VOLUME 97.5 fl (80.0-105.0); MEAN CORPUSCULAR HEMOGLOBIN 31.1 pg (25.0-35.0); MEAN CORPUSCULAR HGB CONC 31.9 g/dl (31.0-37.0); MEAN PLATELET VOLUME 11.6 fl (7.0-11.0); MONO # 0.6 (0.1-0.6); MONO % 5.2 % (1.0-6.0); RBC 4.05 10^6/uL (3.5-6.1); RED CELL DISTRIBUTION WIDTH 16.1 % (11.5-14.5); WHITE BLOOD COUNT 12.3 10^3/uL (4.5-11.0)
[2018-07-04 12:03] LABS: ALB/GLOB RATIO 1.1 (1.1-1.8); ALBUMIN 3.1 g/dL (3.0-4.8); ALT/SGPT 88 U/L (7-56); AST/SGOT 114 U/L (17-59); BLOOD UREA NITROGEN 13 mg/dL (7-21); CALCIUM 7.7 mg/dL (8.4-10.5); GFR NON-AFRICAN AMERICAN > 60
--- NOTE | 2018-07-04 12:55 | PN ---
DATE: 07/04/2018 SUBJECTIVE: I saw him in the Intensive Care Unit. He is still on the ventilator. He has a very, very poor prognosis unfortunately. He is on Ativan, DuoNebs, Ecotrin, Effient, heparin, Lopressor, Nicoderm, Protonix, IV fluids, vitamins and Zosyn. PHYSICAL EXAMINATION: VITAL SIGNS: Temperature 99.5, 80 pulse, 146/103 blood pressure and also 167/81 blood pressure, 100% O2 sat, not at 35%. HEAD: Atraumatic, normocephalic. HEART: Regular rate. LUNGS: Decreased breath sounds but clear. ABDOMEN: Soft, obese. EXTREMITIES: No edema. LABORATORY DATA: He has a 12.3 white count, 12.6 hemoglobin, 39.5 hematocrit with 128 platelets. Sodium 136, potassium 3.7, BUN 14, creatinine 0.8, GFR is greater than 60, sugar is 133, calcium 8.1, phosphorous 1.7, magnesium 1.8, total bili is 0.9, AST is 249, ALT is 135, alk phos 48, total creatine kinase is 4355, total protein 6.3. Procalcitonin is 0.73, elevated. TSH is 0.55. He was positive for amphetamines and benzodiazepines. He has Staphylococcus aureus in a sputum culture. He is being seen by Infectious Disease, Neurology, Cardiology, packaging assembler. He has encephalopathy, possible hypoxic. Continue aggressive treatment care in the Intensive Care Unit. He has a very poor prognosis. Ministerio Wan DO
--- NOTE | 2018-07-04 14:00 | PN ---
DATE: 07/04/2018 PLASTER LATHER NOTE SUBJECTIVE: The patient is on the ventilator, FIO2 of 60%, unresponsive at this time. The patient is hemodynamically stable. The patient is on no sedative medication, but still unresponsive, felt to have encephalopathy most likely secondary to episode of hypoxia. PHYSICAL EXAMINATION: VITAL SIGNS: Temperature is 100.2, pulse is 92, BP is 119/74, respirations of 21. HEENT: Head is atraumatic, normocephalic. Eyes no change. Ear, nose, and throat seemed to be within normal limits. NECK: Supple. No JVD. No thyroid enlargement or lymph nodes. HEART: Has regular rate and rhythm. Normal S1, S2. LUNGS: Reveal bilateral rhonchi. ABDOMEN: Soft, decreased bowel sounds. GENITALIA AND RECTAL: Deferred. MUSCULOSKELETAL: No joint deformities. EXTREMITIES: Reveal positive lower extremity edema. NEUROLOGIC: The patient is unresponsive on the ventilator. LABORATORY DATA: As far as his laboratories are concerned, his white count is 14.9, hemoglobin is 12.3, hematocrit 37.3 with platelets of 156,000. Arterial blood gas reveals a pH of 7.46, pCO2 of 31, pO2 of 75. His sodium is 136, potassium 3.7, chloride 106, CO2 of 26 with a BUN of 14, creatinine of 0.8 and a glucose of 133. IMPRESSION: As far as my impression, this patient has respiratory failure requiring ventilator support, is status post cardiac arrest with cardiopulmonary resuscitation secondary to ventricular fibrillation. The patient has presented with myocardial infarction and noted to have 100% occlusion of his right coronary artery. Stenting was done. The patient has encephalopathy, most likely secondary to hypoxia and has possible right lung infiltrate, rule out pneumonia. The patient has a history of ethanol abuse, hypertension. PLAN: We will continue on ventilator support and decrease the FIO2 as tolerated. The patient will get chest x-ray and arterial blood gas and follow closely. He is getting DuoNeb for bronchodilator, is on Ecotrin, heparin subcu, metoprolol, nicotine patch, Protonix, intravenous fluids, thiamine as well as Zosyn. We will continue to treat aggressively along with the other consultants and the primary care doctor. Merlin Borrego MD
--- NOTE | 2018-07-04 14:00 | RAD ---
Date of service: 07/04/2018 HISTORY: on vent COMPARISON: 07/03/2018 FINDINGS: Endotracheal tube terminates in the mid trachea. The nasogastric tube terminates in the stomach. LUNGS: The lungs are well inflated and clear. PLEURA: No pleural effusions or pneumothorax. CARDIOVASCULAR: The heart is normal in size. No aortic atherosclerotic calcifications present. OSSEOUS STRUCTURES: Within normal limits for the patient's age. VISUALIZED UPPER ABDOMEN: Normal. OTHER FINDINGS: None. IMPRESSION: Stable position of endotracheal and nasogastric tubes. Clear lungs.
[2018-07-04] MEDS: Albuterol-Ipratrop 3 mg / 0.5 (3 ml) UD IH SCH ×2 (14:03→20:16)
[2018-07-04] MEDS ORDERED: Propofol 10 mg/ml Inj (20 ML) ONE (16:19)
[2018-07-04] MEDS ORDERED: Propofol 10 mg/ml Inj (20 ML) IVP ONE (16:19)
[2018-07-04] MEDS ORDERED: Succinylcholine 200 mg/10 ml Inj IV ONE ×3 (16:25→17:06)
[2018-07-04] MEDS ORDERED: Etomidate 20 mg/10ml Inj IVP STA (16:52)
[2018-07-04] MEDS ORDERED: Etomidate 20 mg/10ml Inj IV ONE (16:52)
--- NOTE | 2018-07-04 17:33 | PN ---
DATE: 07/04/2018 SUBJECTIVE: The patient is unresponsive on a ventilator. PHYSICAL EXAMINATION: VITAL SIGNS: Blood pressure 146/103, heart rate 80, temperature 99.5, and respirations 35. HEENT: No pallor or icterus. CHEST: Minimal rhonchi. HEART: S1 and S2 regular. EXTREMITIES: No edema. LABORATORY DATA: Today's hemoglobin and hematocrit 12.6 and 39.5, white count 12.3, and platelet count 128,000. Today SMA-7: Sodium 138, potassium 3.5, chloride 107, CO2 of 27, glucose 136, BUN 15, and creatinine 1.0. Head CT scan performed yesterday revealed findings consistent with diffuse hypoxic brain injury. No evidence of vascular or territorial infarct. No evidence of herniation. Those findings were consistent with diffuse cerebral edema and partial loss of the normal gonzales/white matter differentiation. Today's chest x-ray suggestive of right middle lobe infiltrate. ASSESSMENT: 1. Status post cardiac arrest. 2. Anoxic encephalopathy. 3. Status post percutaneous coronary intervention to total occlusion of the right coronary artery. 4. Hypertension. 5. Mild hypokalemia. RECOMMENDATIONS: Continue current aspirin 81 mg once a day, Effient 10 mg once a day, subcutaneous heparin 5000 units subcutaneously every 8 hours, Lopressor 25 mg once a day, Protonix 40 mg intravenously every 12 hours, thiamine 100 mg daily and Zosyn 3.375 g intravenously every 8 hours. I will administer 10 mEq of intravenous potassium chloride replacement. The overall prognosis is very poor. Corey Yang MD
--- NOTE | 2018-07-04 17:54 | RAD ---
Date of service: 07/04/2018 HISTORY: ETT placement COMPARISON: 07/04/2018 at 5:06 a.m. FINDINGS: Endotracheal tube terminates in the mid trachea. The nasogastric tube terminates in the stomach. LUNGS: The lungs are well inflated. There is mild pulmonary venous congestion. PLEURA: No pleural effusions or pneumothorax. CARDIOVASCULAR: The heart is normal in size. No aortic atherosclerotic calcifications present. OSSEOUS STRUCTURES: Within normal limits for the patient's age. VISUALIZED UPPER ABDOMEN: Normal. OTHER FINDINGS: None. IMPRESSION: Stable position of endotracheal and tracheostomy tubes. Mild pulmonary venous congestion.
--- NOTE | 2018-07-04 17:58 | PCM.PROC ---
Procedures Attestation:: I certify that I have explained the specified Operation(s) or Procedure(s), risks, benefits and reasonable alternatives to the Patient and/or other person responsible. The opportunity was given to ask questions and all questions answered - Intubation Time Out Performed: Yes Sedative: Etomidate, Other (Propofol) Paralytic: Succinylholine Laryngoscope: Glidescope ET Tube Size: 7.5 ET Tube Secured Locarion: Teeth ET Tube Placement Confirmation: Visualized Passing Through Cords, Breath Sounds Equal Bilaterally, Confirmation w/Capnometry Patient Tolerated Procedure: Well Procedure Immediate Complications: Difficult Intubation Additional comments: Patient was initially intubated but did cough out his tube. Had to re-intube him. Used propofol, succinylcholine, etomidate to sedate for this difficult intubation. Patient is now sating well at 95% sedated on propofol. Placement confirmed with CXR.
[2018-07-04] MEDS: Propofol 10 mg/ml 1,000 MG/100 ML VIAL IV PRN (18:52)
--- NOTE | 2018-07-04 20:26 | PN ---
DATE: 07/04/2018 SUBJECTIVE: The patient is seen in bed in no acute distress, remains in the ICU 129, bed 6. The patient remains intubated on a ventilator and has low-grade fevers. OBJECTIVE: VITAL SIGNS: Temperature is 100.2, blood pressure is 150/60, respiratory rate on the vent, and heart rate of 98. HEENT: Unremarkable. NECK: Supple. LUNGS: Have decreased breath sounds. HEART: Normal S1 and S2. ABDOMEN: Soft and nontender. LABORATORY DATA: Reveals a white count of 12,300, hemoglobin of 12, and platelets of 128. Chemistries reveal the BUN of 13 and creatinine of 1.3. LFTs are noted. Procalcitonin is noted to be elevated and urinalysis is noted. Toxicology is reviewed. Serology is negative for Legionella, negative for HIV. Hepatitis profile is negative. Microbiology reveals there is Staph aureus, which is sensitive from the trach collar, sensitive Staph aureus and MRSA screen is negative. Blood cultures are negative. REVIEW OF ORDERS: Reveals the patient to be on Zosyn. ASSESSMENT AND PLAN: This is a 53-year-old male with a history of alcohol abuse, obesity, hypertension, and tobacco use who had a syncopal episode, found to have elevated troponins and cardiac arrest with sepsis most likely respiratory failure, intubated on a ventilator with aspiration pneumonia and possible urinary tract infection, status post cardiac arrest, coronary artery disease, status post percutaneous coronary intervention, hypertension, tobacco use and currently on Zosyn and elevated procalcitonin with sensitive Staphylococcus from the tracheostomy culture and blood cultures negative. Urine cultures negative. This morning's chest x-ray negative rather urine culture is pending. Chest x-ray with ET tube is noted. Lungs are inflated and clear. CAT scan of the head from yesterday disuse hypoxic brain injury. We will follow with you. Overall poor prognosis. Colton Michelle MD
[2018-07-05] MEDS: Albuterol-Ipratrop 3 mg / 0.5 (3 ml) UD IH SCH ×4 (01:54→19:56)
[2018-07-05] MEDS: Piperacillin/Tazobact 3.375 gm 100 ML IVPB SCH ×3 (05:07→21:30)
[2018-07-05] MEDS: Propofol 10 mg/ml 1,000 MG/100 ML VIAL IV PRN ×5 (05:10→21:38)
[2018-07-05 05:52] LABS: ARTERIAL BLOOD GAS HCO3 25.1 mmol/L (21-28); ARTERIAL BLOOD GAS HEMOGLOBIN 12.1 g/dL (11.7-17.4); ARTERIAL BLOOD GAS O2 CAPACITY 16.8 mL/dl (16-24); ARTERIAL BLOOD GAS O2 CONTENT 16.7 ML/dl (15-23); ARTERIAL BLOOD GAS O2 SAT 99.4 % (95-98); ARTERIAL BLOOD GAS PCO2 33 mm/Hg (35-45); ARTERIAL BLOOD GAS PH 7.49 (7.35-7.45); ARTERIAL BLOOD GAS TCO2 26.1 mmol.L (22-28)
[2018-07-05 05:55] LABS: ALBUMIN 3.4 g/dL (3.0-4.8); ALT/SGPT 95 U/L (7-56); AST/SGOT 117 U/L (17-59); BLOOD UREA NITROGEN 13 mg/dL (7-21); CALCIUM 8.1 mg/dL (8.4-10.5); GFR NON-AFRICAN AMERICAN > 60
[2018-07-05 06:00] LABS: BASO # 0.03 K/mm3 (0.0-2.0); BASO % 0.2 % (0.0-3.0); EOS # 0.1 (0.0-0.7); EOS % 0.7 % (1.5-5.0); HEMOGLOBIN 13.3 g/dL (14.0-18.0); LYMPH # 1.7 (1.2-3.4); LYMPH % 13.7 % (22.0-35.0); MEAN CELL VOLUME 94.7 fl (80.0-105.0); MEAN CORPUSCULAR HEMOGLOBIN 30.8 pg (25.0-35.0); MEAN CORPUSCULAR HGB CONC 32.5 g/dl (31.0-37.0); MEAN PLATELET VOLUME 10.3 fl (7.0-11.0); MONO # 1.1 (0.1-0.6); MONO % 9.2 % (1.0-6.0); RBC 4.32 10^6/uL (3.5-6.1); RED CELL DISTRIBUTION WIDTH 14.1 % (11.5-14.5); WHITE BLOOD COUNT 12.3 10^3/uL (4.5-11.0)
[2018-07-05] MEDS ORDERED: Potassium Phosphate 15 MMOLE in Dextrose 5% In Water 250 ML IVPB ONE (08:20)
[2018-07-05] MEDS ORDERED: Sodium Phosphate 15 MMOLE in Dextrose 5% In Water 250 ML IVPB ONE (08:32)
--- NOTE | 2018-07-05 09:47 | RAD ---
Date of service: 07/05/2018 HISTORY: on vent COMPARISON: 07/04/2018 FINDINGS: Endotracheal tube terminates in the mid trachea. The nasogastric tube terminates in the stomach. LUNGS: There is interval development of right lower lobe airspace disease. There is patchy airspace disease in the left mid lung. PLEURA: Small right pleural effusion. No pneumothorax. No large left pleural effusion CARDIOVASCULAR: Persistent mild cardiomegaly. No aortic atherosclerotic calcifications present. OSSEOUS STRUCTURES: Within normal limits for the patient's age. VISUALIZED UPPER ABDOMEN: Normal. OTHER FINDINGS: None. IMPRESSION: Interval development of right lower lobe atelectasis/pneumonia and small right pleural effusion. Patchy airspace disease in the left mid lung may represent atelectasis or pneumonia. Stable position of support tubes.
--- NOTE | 2018-07-05 09:53 | PN ---
DATE: 07/05/2018 SUBJECTIVE: The patient is seen earlier today. We have disconnected the . ASSESSMENT AND PLAN: This 53-year-old male with a history of alcohol abuse, obesity, hypertension, tobacco use, syncopal episode found to have elevated troponin, cardiac arrest, sepsis, respiratory failure intubated on a ventilator, aspiration pneumonia with sensitive Staphylococcus aureus, status post cardiac arrest, coronary artery disease and status post coronary artery intervention, hypertension, tobacco use. On Zosyn with multiple Staphylococcus aureus sensitive. We will follow with you. Colton Michelle MD
--- NOTE | 2018-07-05 09:53 | PN ---
DATE: 07/05/2018 SUBJECTIVE: The patient is in bed, in no acute distress, nontoxic. OBJECTIVE: VITAL SIGNS: On exam, temperature is 101.7, heart rate of 93, blood pressure is 135/90, respiratory rate the patient is on the vent. HEENT: Unremarkable. NECK: Supple. LUNGS: Have decreased breath sounds. HEART: Normal S1 and S2. ABDOMEN: Soft, nontender. LABORATORY EXAMINATION: Reveals a white count of 12,300, hemoglobin of 13, platelets of 197. BUN of 13, creatinine of 1.0, AST is 117, ALT is 95. Procalcitonin is elevated. Microbiology, there is staph aureus, which is sensitive from the trach collar. The blood cultures are negative. Today's chest x-ray results are pending. Yesterday's chest x-ray results reveals congestion. Dr. Merlin Borrego's progress note from yesterday is reviewed. The patient's urine Legionella antigen is negative. HIV is negative. Hepatitis profile is negative. ASSESSMENT AND PLAN: This is a 53-year-old male who has status post cardiac rest with right coronary artery and respiratory failure, intubated on a ventilator. We will continue present course. The patient's yesterday's events are noted. The patient required reintubation. We will follow with you. Colton Michelle MD
--- NOTE | 2018-07-05 11:45 | PN ---
DATE: 07/05/2018 MEASURING MACHINE TENDER NOTE SUBJECTIVE: The patient is sedated on the ventilator with propofol and Ativan. The patient is on FIO2 of 60%. He is hemodynamically stable. Pruden to have encephalopathy, probably secondary to hypoxia. OBJECTIVE: VITAL SIGNS: His temperature is 101.7, pulse is 86, respirations are 20 and BP is 135/90. SKIN: Warm and dry. HEENT: Head is atraumatic, normocephalic. Eyes reactive to light. Ears, nose and throat seem to be within normal limits. NECK: Supple. No JVD. No thyroid enlargement, no lymph nodes. HEART: Regular rate and rhythm. Normal S1 and S2. LUNGS: Reveal bilateral rhonchi. ABDOMEN: Soft. Decreased bowel sounds. GENITALIA AND RECTAL: Deferred. MUSCULOSKELETAL: No joint deformities. EXTREMITIES: Reveal trace lower extremity edema. NEUROLOGICALLY: The patient is sedated on the ventilator. LABORATORY DATA: As far as his laboratories, his white count is 12.3, hemoglobin is 13.3, hematocrit 40.9 with platelets of 197,000. Arterial blood gas reveals a pH of 7.49, pCO2 of 33, pO2 of 122. Sodium is 140, potassium 3.4, chloride 105, CO2 of 28 with a BUN of 13, creatinine of 1.0 and a glucose of 110. Chest x-ray reveals right lower lobe pneumonia and infiltrate. This is an unofficial reading. IMPRESSION: This patient has respiratory failure requiring ventilator support. He has a right lower lobe pneumonia. He is status post cardiac arrest with cardiopulmonary resuscitation secondary to ventricular fibrillation. The patient had a myocardial infarction, noted to have 100% occlusion of his right coronary artery, stent has been placed. The patient has encephalopathy, felt to be secondary to hypoxia. He has history of EtOH abuse and hypertension. PLAN: As far as our plan, we will continue with ventilator support and decrease the FIO2 as tolerated. The patient will be followed with chest x-ray and arterial blood gases. He is on DuoNeb, bronchodilators, Ecotrin, heparin, metoprolol, nicotine patch, Protonix, IV fluids, thiamine and Zosyn. The patient is being followed by ID. We will continue to follow closely and treat aggressively along with the other consultants and the primary care doctor. Merlin Borrego MD [facility] # [id number]
[2018-07-05] MEDS ORDERED: Acetaminophen 650mg/20.3ml solution UD PO STA (15:48)
--- NOTE | 2018-07-05 17:33 | PN ---
DATE: 07/05/2018 SUBJECTIVE: He is in bed. He is on the ventilator. He is in very much big trouble. He had multiple issues from alcohol abuse to pneumonia, arrhythmia, sepsis. He has multiple consults, on multiple meds. PHYSICAL EXAMINATION: VITAL SIGNS: He has a 100.2 temperature, 99 pulse, 156/104 blood pressure, 98% O2 sat. HEAD: Atraumatic and normocephalic. HEART: Regular rate. LUNGS: Decreased breath sounds, on the ventilator. ABDOMEN: Soft, obese. EXTREMITIES: No edema. LABORATORY DATA: He has a 12.3 white count, 30.3 hemoglobin, 40.9 hematocrit, 497 platelets. Last lactate was 4.1. He has a 140 sodium, potassium 3.4, replace potassium. BUN 30, creatinine GFR is greater than 60, sugar is 110. Calcium is 8.1, phosphorous 2.4, magnesium 2.2, AST is 117, ALT is 95, alk phos 58, total protein 6.8. Procalcitonin is down to 7.3 but still high. ASSESSMENT AND PLAN: He is being seen by the covering machine operator, Infectious Disease, Cardiology. He is in deep trouble. We will continue with aggressive treatment and care. Ministerio Wan DO MTDD
[2018-07-05] MEDS: Sodium Chloride 0.9% 1,000 ML IV SCH (17:56)
--- NOTE | 2018-07-05 21:31 | PN ---
DATE: 07/05/2018 SUBJECTIVE: The patient is still unresponsive on a ventilator. No reported ventricular tachycardia or hypotension. PHYSICAL EXAMINATION: VITAL SIGNS: Blood pressure 156/104, heart rate 99, temperature 100.3. HEENT: No pallor or icterus. CHEST: Bilateral rhonchi. HEART: S1 and S2 regular. EXTREMITIES: No edema. LABORATORY: Hemoglobin and hematocrit are 13.3 and 40.9, white count 12.3, platelet count 197,000. SMA-7: Sodium 140, potassium 3.4 chloride 105, CO2 of 28, glucose 110, BUN 15, creatinine 1. Calcium 8.1, phosphorus 2.4; both calcium and phosphorus are below normal. Today's chest x-ray report shows interval development of right lower lobe atelectasis/pneumonia and small right pleural effusion. Patchy airspace disease in the left midlung, may represent atelectasis or pneumonia. ASSESSMENT: 1. Status post cardiac arrest requiring several defibrillations. 2. Anoxic encephalopathy. 3. Status post percutaneous coronary intervention due to total occlusion of the right coronary artery. 4. Hypokalemia, hypocalcemia, and hypophosphatemia. 5. 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 RECOMMENDATIONS: Continue current albuterol inhaler every 12 hours p.r.n. Continue aspirin 81 mg once a day, Effient 10 mg once a day, subcutaneous heparin 5000 units every 8 hours, Lopressor 25 mg twice a day via nasogastric tube. The patient did receive a total of 30 mEq of intravenous potassium chloride replacement today. Continue thiamine at 500 mg daily via nasogastric tube and Zosyn at 3.375 g intravenously every 8 hours. Corey Yang MD
[2018-07-06] MEDS: Propofol 10 mg/ml 1,000 MG/100 ML VIAL IV PRN ×5 (01:11→20:08)
[2018-07-06] MEDS: Albuterol-Ipratrop 3 mg / 0.5 (3 ml) UD IH SCH ×4 (01:27→19:37)
[2018-07-06 04:56] LABS: ARTERIAL BLOOD GAS HCO3 26.1 mmol/L (21-28); ARTERIAL BLOOD GAS HEMOGLOBIN 11.9 g/dL (11.7-17.4); ARTERIAL BLOOD GAS O2 CAPACITY 16.6 mL/dl (16-24); ARTERIAL BLOOD GAS O2 CONTENT 16.5 ML/dl (15-23); ARTERIAL BLOOD GAS O2 SAT 99.4 % (95-98); ARTERIAL BLOOD GAS PCO2 35 mm/Hg (35-45); ARTERIAL BLOOD GAS PH 7.48 (7.35-7.45); ARTERIAL BLOOD GAS TCO2 27.2 mmol.L (22-28)
[2018-07-06] MEDS: Piperacillin/Tazobact 3.375 gm 100 ML IVPB SCH ×3 (06:09→22:08)
--- NOTE | 2018-07-06 06:49 | CP.CCUPN ---
<Jaime Cardenas - Last Filed: 07/06/18 14:24> CCU Subjective - Physician Review Subjective (Free Text): Jaime Cardenas DO. Critical Care Progress note Patient seen and examined at bedside, intubated/sedated on propofol 50 mcg. Tmax 100.9 on cool blanket with ice packs. Was given ativan. No significant overnight events. CCU Objective - Vital Signs / Intake & Output Vital Signs (Last 4 hours): Vital Signs Temp Pulse Resp BP Pulse Ox 07/06/18 05:07 100 H 159/90 H 100 07/06/18 05:04 100 H 138/104 H 100 07/06/18 04:28 100 H 169/106 H 100 07/06/18 04:00 100.9 F H 106 H 25 H 169/86 H 92 L 07/06/18 03:38 111 H 166/96 H 95 07/06/18 03:30 112 H 07/06/18 03:00 101 H 162/76 H 87 L Intake and Output (Last 8hrs): Intake & Output 07/05/18 07/05/18 07/06/18 14:59 22:59 06:59 Intake Total 100 2520 200 Output Total 1700 Balance 100 820 200 Intake: IV 100 1370 200 Left Hand 250 Left Wrist 600 Right Antecubital 220 Tube Feeding 750 Other 400 Output: Urine 1700 Urethral ([place]) 1700 - Physical Exam Head: Positive for: Atraumatic, Normocephalic Pupils: Positive for: Sluggish Extroacular Muscles: Positive for: EOMI Conjunctiva: Positive for: Normal Mouth: Positive for: Moist Mucous Membranes Nose (Internal): Positive for: Other (dried blood nticed, packing applied) Neck: Positive for: Normal Range of Motion. Negative for: MIDLINE TENDERNESS Respiratory/Chest: Positive for: Decreased Breath Sounds (R upper lung) Cardiovascular: Positive for: Regular Rate and Rhythm, Normal S1, S2. Negative for: Murmurs Abdomen: Negative for: Tenderness, Distention, Peritoneal Signs, Mass/Organomeg ann marie Back: Positive for: Normal Inspection Upper Extremity: Positive for: Normal Inspection. Negative for: Cyanosis, Edema Lower Extremity: Positive for: Normal Inspection, NORMAL PULSES. Negative for: Edema, Cyanosis, Swelling, Erythema Neurological: Positive for: Other (sedated) Skin: Positive for: Warm, Dry, Normal Color. Negative for: Rashes Psychiatric: Positive for: Other (intubated) - Medications Active Medications: Active Medications Generic Name Dose Route Start Last Admin Trade Name Freq PRN Reason Stop Dose Admin Albuterol/Ipratropium 3 ml 07/01/18 17:28 07/04/18 08:16 Duoneb 3 Mg/0.5 Mg (3 Ml) Ud IH 3 ml Q2H PRN Administration Shortness of Breath Albuterol/Ipratropium 3 ml 07/04/18 14:00 07/06/18 01:27 Duoneb 3 Mg/0.5 Mg (3 Ml) Ud IH 3 ml [id number] ALIN Administration Aspirin 81 mg 07/02/18 10:30 07/05/18 09:01 Ecotrin PO 81 mg DAILY ALIN Administration Heparin Sodium (Porcine) 5,000 units 07/03/18 14:00 07/06/18 06:09 Heparin SC 5,000 units Q8 ALIN Administration Protocol Piperacillin Sod/Tazobactam Sod 100 mls @ 25 mls/hr 07/03/18 14:00 07/06/18 06:09 Zosyn 3.375 In Ns 100ml IVPB 07/11/18 14:01 25 mls/hr Q8 ALIN Administration Protocol Propofol 1,000 mg in 100 mls @ 6.314 mls/hr 07/04/18 18:28 07/06/18 04:36 Diprivan IV 50 mcg/kg/min .[id number] PRN 31.57 mls/hr TITRATE PER MD ORDER Administration Protocol 10 MCG/KG/MIN Sodium Chloride 1,000 mls @ 50 mls/hr 07/05/18 17:07 07/05/18 17:56 Sodium Chloride 0.9% IV 50 mls/hr .Q20H ALIN Administration Lorazepam 2 mg 07/01/18 14:13 07/06/18 03:57 Ativan IVP 2 mg Q2H PRN Administration Anxiety Protocol Metoprolol Tartrate 25 mg 07/03/18 12:00 07/05/18 17:04 Lopressor PO 25 mg BID ALIN Administration Nicotine 1 patch 07/02/18 10:00 07/05/18 09:00 Nicoderm Cq TD 1 patch DAILY ALIN Administration Pantoprazole Sodium 40 mg 07/01/18 22:00 07/05/18 21:27 Protonix Inj IVP 40 mg Q12 ALIN Administration Prasugrel 10 mg 07/04/18 10:00 07/05/18 09:01 Effient PO 10 mg DAILY ALIN Administration Thiamine HCl 500 mg 07/04/18 10:00 07/05/18 09:01 Vitamin B1 Tab PO 07/10/18 10:01 500 mg DAILY ALIN Administration - Patient Studies Lab Studies: Microbiology Studies 07/02/18 12:55 Blood Culture - Preliminary Blood NO GROWTH AFTER 3 DAYS 07/03/18 12:00 Urine Culture - Final Urine,[place] No Growth (<1,000 CFU/ML) Lab Studies 07/06/18 07/06/18 07/05/18 Range/Units 04:50 04:07 22:55 pCO2 35 (35-45) mm/Hg pO2 143.0 H (80-100) mm/Hg HCO3 26.1 (21-28) mmol/L ABG pH 7.48 H (7.35-7.45) ABG Total CO2 27.2 (22-28) mmol.L ABG O2 Saturation 99.4 H (95-98) % ABG O2 Content 16.5 (15-23) ML/dl ABG Base Excess 2.7 (-2.0-3.0) mmol/L ABG Hemoglobin 11.9 (11.7-17.4) g/dL ABG Carboxyhemoglobin 1.3 (0.5-1.5) % POC ABG HHb (Measured) 0.6 (0-5) % ABG Methemoglobin 1.0 (0.0-3.0) % ABG O2 Capacity 16.6 (16-24) mL/dl Hgb O2 Saturation 97.1 (95.0-98.0) % FiO2 60.0 % POC Glucose (mg/dL) 100 97 (65-110) mg/dL 07/05/18 07/05/18 07/05/18 Range/Units 16:56 12:30 04:48 pCO2 (35-45) mm/Hg pO2 (80-100) mm/Hg HCO3 (21-28) mmol/L ABG pH (7.35-7.45) ABG Total CO2 (22-28) mmol.L ABG O2 Saturation (95-98) % ABG O2 Content (15-23) ML/dl ABG Base Excess (-2.0-3.0) mmol/L ABG Hemoglobin (11.7-17.4) g/dL ABG Carboxyhemoglobin (0.5-1.5) % POC ABG HHb (Measured) (0-5) % ABG Methemoglobin (0.0-3.0) % ABG O2 Capacity (16-24) mL/dl Hgb O2 Saturation (95.0-98.0) % FiO2 % POC Glucose (mg/dL) 97 107 102 (65-110) mg/dL Laboratory Results - last 24 hr 07/05/18 07/05/18 07/05/18 04:48 12:30 16:56 pCO2 pO2 HCO3 ABG pH ABG Total CO2 ABG O2 Saturation ABG O2 Content ABG Base Excess ABG Hemoglobin ABG Carboxyhemoglobin POC ABG HHb (Measured) ABG Methemoglobin ABG O2 Capacity Hgb O2 Saturation FiO2 POC Glucose (mg/dL) 102 107 97 07/05/18 07/06/18 07/06/18 22:55 04:07 04:50 pCO2 35 pO2 143.0 H HCO3 26.1 ABG pH 7.48 H ABG Total CO2 27.2 ABG O2 Saturation 99.4 H ABG O2 Content 16.5 ABG Base Excess 2.7 ABG Hemoglobin 11.9 ABG Carboxyhemoglobin 1.3 POC ABG HHb (Measured) 0.6 ABG Methemoglobin 1.0 ABG O2 Capacity 16.6 Hgb O2 Saturation 97.1 FiO2 60.0 POC Glucose (mg/dL) 97 100 Radiology Impressions: Radiology Impressions Chest X-Ray 07/05/18 05:00 IMPRESSION: Interval development of right lower lobe atelectasis/pneumonia and small right pleural effusion. Patchy airspace disease in the left mid lung may represent atelectasis or pneumonia. Stable position of support tubes. Fingerstick Blood Sugar Results: 97 Assessment/Plan - Assessment and Plan (Free Text) Assessment: 53 y/o male admitted to ICU s/p cardiac arrest with subsequent PCI with RCA stent place. Still intubated on PRVC. Sedated on propofol. No significant overnight events. Plan: Neuro: -Intubated/sedated on propofol 50 mcg and versed. not arousable, not responsive to verbal or painful stimuli -maintain normothermia -hypothermic protocol not initiated on admission to ICU due to epistaxis and hemoptysis at that time -CT head: no ICH -Video EEG: no seizure activity -continue ativan prn -neuro consulted -heavy smoker. nicotine patch 21 mg/24 hr Cardio: -cardiac arrest due to VFib s/p PCI with RCA ANALISA -continue asa, effient, lopressor -maintain MAP>65 -Echo done, read pending -cardiology following Pulm: -continue PRVC 450/18/5/60 -vent weaning trial, mouth hygeine, DVT/GI ppx, head elevation 30 degree, sedation vacation -maintain O2>92% -duonebs prn GI: -LFT trending down -patient alcoholic, obese -d/c statins due to elevated LFT -f/u U/S abdomen Renal: -rhabdomyolysis likely due to debribillation with CPK trending down from 7571 to 4355 to 1077 -continue IVF NS @50cc/hr -replete lytes as needed -UOP 3000 -maintain euvolemia, euglycemia -UDS positive for amphetamine, benzo ID: -still febrile Tmax 101.5 cool mattress, -sputum cx positive for S. aureus -blood cx negative to date -procal 0.86 -continue zosyn per ID -HIV, legionella, MRSA negative -ID consulted Heme: -Hb stable -continue monitoring Prophylaxis: GI ppx Protonix q12 DVT SCD, Heparin sq Continue ICU management Full code Family discussed possiblity of transfer the patient to [place], [place] where they all reside. Family will try to find a facility that is willing to accept the patient first. Case reviewed and plan discussed with attending physician Dr Fox <Brendon Fox - Last Filed: 07/06/18 15:24> CCU Objective - Vital Signs / Intake & Output Vital Signs (Last 4 hours): Vital Signs Temp Pulse Resp BP Pulse Ox 07/06/18 12:00 97.7 F 69 20 115/67 100 Intake and Output (Last 8hrs): Intake & Output 07/06/18 07/06/18 07/06/18 06:59 14:59 22:59 Intake Total 1278 200 Output Total 1300 Balance -22 200 Intake: IV 1278 200 Left Hand 100 Right Antecubital 600 Right Forearm 378 Output: Urine 1300 Urethral ([place]) 1300 - Medications Active Medications: Active Medications Generic Name Dose Route Start Last Admin Trade Name Freq PRN Reason Stop Dose Admin Albuterol/Ipratropium 3 ml 07/01/18 17:28 07/04/18 08:16 Duoneb 3 Mg/0.5 Mg (3 Ml) Ud IH 3 ml Q2H PRN Administration Shortness of Breath Albuterol/Ipratropium 3 ml 07/04/18 14:00 07/06/18 13:40 Duoneb 3 Mg/0.5 Mg (3 Ml) Ud IH 3 ml [id number] ALIN Administration Aspirin 81 mg 07/02/18 10:30 07/06/18 09:00 Ecotrin PO 81 mg DAILY ALIN Administration Heparin Sodium (Porcine) 5,000 units 07/03/18 14:00 07/06/18 13:57 Heparin SC 5,000 units Q8 ALIN Administration Protocol Piperacillin Sod/Tazobactam Sod 100 mls @ 25 mls/hr 07/03/18 14:00 07/06/18 13:57 Zosyn 3.375 In Ns 100ml IVPB 07/11/18 14:01 25 mls/hr Q8 ALIN Administration Protocol Propofol 1,000 mg in 100 mls @ 6.314 mls/hr 07/04/18 18:28 07/06/18 14:52 Diprivan IV 40 mcg/kg/min .[id number] PRN 25.256 mls/hr TITRATE PER MD ORDER Administration Protocol 10 MCG/KG/MIN Sodium Chloride 1,000 mls @ 50 mls/hr 07/05/18 17:07 07/05/18 17:56 Sodium Chloride 0.9% IV 50 mls/hr .Q20H ALIN Administration Midazolam 100 mg/100ml in NS 100 mg in 100 mls @ 2 mls/hr 07/06/18 07:50 07/06/18 08:47 Midazolam 100 Mg/100ml In Ns IV 1 mg/hr .Q24H PRN 1 mls/hr Sedation Administration Protocol 2 MG/HR Lorazepam 2 mg 07/01/18 14:13 07/06/18 07:54 Ativan IVP 2 mg Q2H PRN Administration Anxiety Protocol Metoprolol Tartrate 25 mg 07/03/18 12:00 07/06/18 09:03 Lopressor PO 25 mg BID ALIN Administration Nicotine 1 patch 07/02/18 10:00 07/06/18 08:59 Nicoderm Cq TD 1 patch DAILY ALIN Administration Pantoprazole Sodium 40 mg 07/01/18 22:00 07/06/18 08:59 Protonix Inj IVP 40 mg Q12 ALIN Administration Prasugrel 10 mg 07/04/18 10:00 07/06/18 09:00 Effient PO 10 mg DAILY ALIN Administration Thiamine HCl 500 mg 07/04/18 10:00 07/06/18 09:00 Vitamin B1 Tab PO 07/10/18 10:01 500 mg DAILY ALIN Administration - Patient Studies Lab Studies: Microbiology Studies 07/02/18 12:55 Blood Culture - Preliminary Blood NO GROWTH AFTER 4 DAYS 07/03/18 12:00 Urine Culture - Final Urine,[place] No Growth (<1,000 CFU/ML) Lab Studies 07/06/18 07/06/18 07/06/18 Range/Units 12:20 11:00 07:15 WBC (4.5-11.0) 10^3/uL RBC (3.5-6.1) 10^6/uL Hgb (14.0-18.0) g/dL Hct (42.0-52.0) % MCV (80.0-105.0) fl MCH (25.0-35.0) pg MCHC (31.0-37.0) g/dl RDW (11.5-14.5) % Plt Count (120.0-450.0) 10^3/uL MPV (7.0-11.0) fl Neut % (Auto) (50.0-68.0) % Lymph % (Auto) (22.0-35.0) % [place] % (Auto) (1.0-6.0) % Eos % (Auto) (1.5-5.0) % Baso % (Auto) (0.0-3.0) % Lymph # (Auto) (1.2-3.4) [place] # (Auto) (0.1-0.6) Eos # (Auto) (0.0-0.7) Baso # (Auto) (0.0-2.0) K/mm3 Absolute Neuts (auto) (1.4-6.5) pCO2 (35-45) mm/Hg pO2 (80-100) mm/Hg HCO3 (21-28) mmol/L ABG pH (7.35-7.45) ABG Total CO2 (22-28) mmol.L ABG O2 Saturation (95-98) % ABG O2 Content (15-23) ML/dl ABG Base Excess (-2.0-3.0) mmol/L ABG Hemoglobin (11.7-17.4) g/dL ABG Carboxyhemoglobin (0.5-1.5) % POC ABG HHb (Measured) (0-5) % ABG Methemoglobin (0.0-3.0) % ABG O2 Capacity (16-24) mL/dl Hgb O2 Saturation (95.0-98.0) % FiO2 % Sodium (132-148) mmol/L Potassium (3.6-5.0) mmol/L Chloride (98-107) mmol/L Carbon Dioxide (21-33) mmol/L Anion Gap (10-20) BUN (7-21) mg/dL Creatinine (0.8-1.5) mg/dl Est GFR ( Amer) Est GFR (Non-Af Amer) POC Glucose (mg/dL) 122 H 99 (65-110) mg/dL Random Glucose (70-110) mg/dL Calcium (8.4-10.5) mg/dL Phosphorus (2.5-4.5) mg/dL Magnesium (1.7-2.2) mg/dL Total Bilirubin (0.2-1.3) mg/dL AST (17-59) U/L ALT (7-56) U/L Alkaline Phosphatase (38-126) U/L Total Creatine Kinase (35-230) U/L CK-MB (CK-2) (0.0-3.6) ng/mL CK-MB (CK-2) % Total Protein (5.8-8.3) g/dL Albumin (3.0-4.8) g/dL Globulin gm/dL Albumin/Globulin Ratio (1.1-1.8) Urine Color Yellow (YELLOW) Urine Appearance Clear (CLEAR) Urine pH 6.0 (4.7-8.0) Ur Specific [place] 1.025 (1.005-1.035) Urine Protein Negative (<30 mg/dL) mg/dL Urine Glucose (UA) Negative (NEGATIVE) mg/dL Urine Ketones Negative (NEGATIVE) mg/dL Urine Blood Trace-intact H (NEGATIVE) Urine Nitrate Negative (NEGATIVE) Urine Bilirubin Negative (NEGATIVE) Urine Urobilinogen 1.0 H (<1 E.U./dL) E.U./dL Ur Leukocyte Esterase Negative (NEGATIVE) [place]/uL Urine RBC 2 - 5 H (0-2) /hpf Urine WBC 0 - 2 (0-6) /hpf Ur Epithelial Cells 0 - 2 (0-5) /hpf Urine Bacteria Many (NONE) /hpf Coarse Granular Casts Trace (NONE) /hpf 07/06/18 07/06/18 07/06/18 Range/Units 06:50 06:00 06:00 WBC 10.4 (4.5-11.0) 10^3/uL RBC 3.85 (3.5-6.1) 10^6/uL Hgb 11.7 L (14.0-18.0) g/dL Hct 35.7 L (42.0-52.0) % MCV 92.7 (80.0-105.0) fl MCH 30.4 (25.0-35.0) pg MCHC 32.8 (31.0-37.0) g/dl RDW 14.1 (11.5-14.5) % Plt Count 211 (120.0-450.0) 10^3/uL MPV 9.6 (7.0-11.0) fl Neut % (Auto) 77.3 H (50.0-68.0) % Lymph % (Auto) 11.5 L (22.0-35.0) % [place] % (Auto) 9.0 H (1.0-6.0) % Eos % (Auto) 1.7 (1.5-5.0) % Baso % (Auto) 0.5 (0.0-3.0) % Lymph # (Auto) 1.2 (1.2-3.4) [place] # (Auto) 0.9 H (0.1-0.6) Eos # (Auto) 0.2 (0.0-0.7) Baso # (Auto) 0.05 (0.0-2.0) K/mm3 Absolute Neuts (auto) 8.07 H (1.4-6.5) pCO2 (35-45) mm/Hg pO2 (80-100) mm/Hg HCO3 (21-28) mmol/L ABG pH (7.35-7.45) ABG Total CO2 (22-28) mmol.L ABG O2 Saturation (95-98) % ABG O2 Content (15-23) ML/dl ABG Base Excess (-2.0-3.0) mmol/L ABG Hemoglobin (11.7-17.4) g/dL ABG Carboxyhemoglobin (0.5-1.5) % POC ABG HHb (Measured) (0-5) % ABG Methemoglobin (0.0-3.0) % ABG O2 Capacity (16-24) mL/dl Hgb O2 Saturation (95.0-98.0) % FiO2 % Sodium 137 (132-148) mmol/L Potassium 3.9 (3.6-5.0) mmol/L Chloride 106 (98-107) mmol/L Carbon Dioxide 22 (21-33) mmol/L Anion Gap 13 (10-20) BUN 14 (7-21) mg/dL Creatinine 0.9 (0.8-1.5) mg/dl Est GFR ( Amer) > 60 Est GFR (Non-Af Amer) > 60 POC Glucose (mg/dL) (65-110) mg/dL Random Glucose 95 (70-110) mg/dL Calcium 8.2 L (8.4-10.5) mg/dL Phosphorus 3.4 (2.5-4.5) mg/dL Magnesium 2.4 H (1.7-2.2) mg/dL Total Bilirubin 0.6 (0.2-1.3) mg/dL AST 99 H (17-59) U/L ALT 84 H (7-56) U/L Alkaline Phosphatase 63 (38-126) U/L Total Creatine Kinase 1077 H (35-230) U/L CK-MB (CK-2) 1.5 (0.0-3.6) ng/mL CK-MB (CK-2) % Cancelled Total Protein 7.0 (5.8-8.3) g/dL Albumin 3.6 (3.0-4.8) g/dL Globulin 3.4 gm/dL Albumin/Globulin Ratio 1.0 L (1.1-1.8) Urine Color (YELLOW) Urine Appearance (CLEAR) Urine pH (4.7-8.0) Ur Specific [place] (1.005-1.035) Urine Protein (<30 mg/dL) mg/dL Urine Glucose (UA) (NEGATIVE) mg/dL Urine Ketones (NEGATIVE) mg/dL Urine Blood (NEGATIVE) Urine Nitrate (NEGATIVE) Urine Bilirubin (NEGATIVE) Urine Urobilinogen (<1 E.U./dL) E.U./dL Ur Leukocyte Esterase (NEGATIVE) [place]/uL Urine RBC (0-2) /hpf Urine WBC (0-6) /hpf Ur Epithelial Cells (0-5) /hpf Urine Bacteria (NONE) /hpf Coarse Granular Casts (NONE) /hpf 07/06/18 07/06/18 07/05/18 Range/Units 04:50 04:07 22:55 WBC (4.5-11.0) 10^3/uL RBC (3.5-6.1) 10^6/uL Hgb (14.0-18.0) g/dL Hct (42.0-52.0) % MCV (80.0-105.0) fl MCH (25.0-35.0) pg MCHC (31.0-37.0) g/dl RDW (11.5-14.5) % Plt Count (120.0-450.0) 10^3/uL MPV (7.0-11.0) fl Neut % (Auto) (50.0-68.0) % Lymph % (Auto) (22.0-35.0) % [place] % (Auto) (1.0-6.0) % Eos % (Auto) (1.5-5.0) % Baso % (Auto) (0.0-3.0) % Lymph # (Auto) (1.2-3.4) [place] # (Auto) (0.1-0.6) Eos # (Auto) (0.0-0.7) Baso # (Auto) (0.0-2.0) K/mm3 Absolute Neuts (auto) (1.4-6.5) pCO2 35 (35-45) mm/Hg pO2 143.0 H (80-100) mm/Hg HCO3 26.1 (21-28) mmol/L ABG pH 7.48 H (7.35-7.45) ABG Total CO2 27.2 (22-28) mmol.L ABG O2 Saturation 99.4 H (95-98) % ABG O2 Content 16.5 (15-23) ML/dl ABG Base Excess 2.7 (-2.0-3.0) mmol/L ABG Hemoglobin 11.9 (11.7-17.4) g/dL ABG Carboxyhemoglobin 1.3 (0.5-1.5) % POC ABG HHb (Measured) 0.6 (0-5) % ABG Methemoglobin 1.0 (0.0-3.0) % ABG O2 Capacity 16.6 (16-24) mL/dl Hgb O2 Saturation 97.1 (95.0-98.0) % FiO2 60.0 % Sodium (132-148) mmol/L Potassium (3.6-5.0) mmol/L Chloride (98-107) mmol/L Carbon Dioxide (21-33) mmol/L Anion Gap (10-20) BUN (7-21) mg/dL Creatinine (0.8-1.5) mg/dl Est GFR ( Amer) Est GFR (Non-Af Amer) POC Glucose (mg/dL) 100 97 (65-110) mg/dL Random Glucose (70-110) mg/dL Calcium (8.4-10.5) mg/dL Phosphorus (2.5-4.5) mg/dL Magnesium (1.7-2.2) mg/dL Total Bilirubin (0.2-1.3) mg/dL AST (17-59) U/L ALT (7-56) U/L Alkaline Phosphatase (38-126) U/L Total Creatine Kinase (35-230) U/L CK-MB (CK-2) (0.0-3.6) ng/mL CK-MB (CK-2) % Total Protein (5.8-8.3) g/dL Albumin (3.0-4.8) g/dL Globulin gm/dL Albumin/Globulin Ratio (1.1-1.8) Urine Color (YELLOW) Urine Appearance (CLEAR) Urine pH (4.7-8.0) Ur Specific [place] (1.005-1.035) Urine Protein (<30 mg/dL) mg/dL Urine Glucose (UA) (NEGATIVE) mg/dL Urine Ketones (NEGATIVE) mg/dL Urine Blood (NEGATIVE) Urine Nitrate (NEGATIVE) Urine Bilirubin (NEGATIVE) Urine Urobilinogen (<1 E.U./dL) E.U./dL Ur Leukocyte Esterase (NEGATIVE) Otis/uL Urine RBC (0-2) /hpf Urine WBC (0-6) /hpf Ur Epithelial Cells (0-5) /hpf Urine Bacteria (NONE) /hpf Coarse Granular Casts (NONE) /hpf 07/05/18 07/05/18 07/05/18 Range/Units 16:56 12:30 04:48 WBC (4.5-11.0) 10^3/uL RBC (3.5-6.1) 10^6/uL Hgb (14.0-18.0) g/dL Hct (42.0-52.0) % MCV (80.0-105.0) fl MCH (25.0-35.0) pg MCHC (31.0-37.0) g/dl RDW (11.5-14.5) % Plt Count (120.0-450.0) 10^3/uL MPV (7.0-11.0) fl Neut % (Auto) (50.0-68.0) % Lymph % (Auto) (22.0-35.0) % [place] % (Auto) (1.0-6.0) % Eos % (Auto) (1.5-5.0) % Baso % (Auto) (0.0-3.0) % Lymph # (Auto) (1.2-3.4) [place] # (Auto) (0.1-0.6) Eos # (Auto) (0.0-0.7) Baso # (Auto) (0.0-2.0) K/mm3 Absolute Neuts (auto) (1.4-6.5) pCO2 (35-45) mm/Hg pO2 (80-100) mm/Hg HCO3 (21-28) mmol/L ABG pH (7.35-7.45) ABG Total CO2 (22-28) mmol.L ABG O2 Saturation (95-98) % ABG O2 Content (15-23) ML/dl ABG Base Excess (-2.0-3.0) mmol/L ABG Hemoglobin (11.7-17.4) g/dL ABG Carboxyhemoglobin (0.5-1.5) % POC ABG HHb (Measured) (0-5) % ABG Methemoglobin (0.0-3.0) % ABG O2 Capacity (16-24) mL/dl Hgb O2 Saturation (95.0-98.0) % FiO2 % Sodium (132-148) mmol/L Potassium (3.6-5.0) mmol/L Chloride (98-107) mmol/L Carbon Dioxide (21-33) mmol/L Anion Gap (10-20) BUN (7-21) mg/dL Creatinine (0.8-1.5) mg/dl Est GFR ( Amer) Est GFR (Non-Af Amer) POC Glucose (mg/dL) 97 107 102 (65-110) mg/dL Random Glucose (70-110) mg/dL Calcium (8.4-10.5) mg/dL Phosphorus (2.5-4.5) mg/dL Magnesium (1.7-2.2) mg/dL Total Bilirubin (0.2-1.3) mg/dL AST (17-59) U/L ALT (7-56) U/L Alkaline Phosphatase (38-126) U/L Total Creatine Kinase (35-230) U/L CK-MB (CK-2) (0.0-3.6) ng/mL CK-MB (CK-2) % Total Protein (5.8-8.3) g/dL Albumin (3.0-4.8) g/dL Globulin gm/dL Albumin/Globulin Ratio (1.1-1.8) Urine Color (YELLOW) Urine Appearance (CLEAR) Urine pH (4.7-8.0) Ur Specific [place] (1.005-1.035) Urine Protein (<30 mg/dL) mg/dL Urine Glucose (UA) (NEGATIVE) mg/dL Urine Ketones (NEGATIVE) mg/dL Urine Blood (NEGATIVE) Urine Nitrate (NEGATIVE) Urine Bilirubin (NEGATIVE) Urine Urobilinogen (<1 E.U./dL) E.U./dL Ur Leukocyte Esterase (NEGATIVE) Otis/uL Urine RBC (0-2) /hpf Urine WBC (0-6) /hpf Ur Epithelial Cells (0-5) /hpf Urine Bacteria (NONE) /hpf Coarse Granular Casts (NONE) /hpf Laboratory Results - last 24 hr 07/05/18 07/05/18 07/05/18 04:48 12:30 16:56 WBC RBC Hgb Hct MCV MCH MCHC RDW Plt Count MPV Neut % (Auto) Lymph % (Auto) [place] % (Auto) Eos % (Auto) Baso % (Auto) Lymph # (Auto) [place] # (Auto) Eos # (Auto) Baso # (Auto) Absolute Neuts (auto) pCO2 pO2 HCO3 ABG pH ABG Total CO2 ABG O2 Saturation ABG O2 Content ABG Base Excess ABG Hemoglobin ABG Carboxyhemoglobin POC ABG HHb (Measured) ABG Methemoglobin ABG O2 Capacity Hgb O2 Saturation FiO2 Sodium Potassium Chloride Carbon Dioxide Anion Gap BUN Creatinine Est GFR ( Amer) Est GFR (Non-Af Amer) POC Glucose (mg/dL) 102 107 97 Random Glucose Calcium Phosphorus Magnesium Total Bilirubin AST ALT Alkaline Phosphatase Total Creatine Kinase CK-MB (CK-2) CK-MB (CK-2) % Total Protein Albumin Globulin Albumin/Globulin Ratio Urine Color Urine Appearance Urine pH Ur Specific [place] Urine Protein Urine Glucose (UA) Urine Ketones Urine Blood Urine Nitrate Urine Bilirubin Urine Urobilinogen Ur Leukocyte Esterase Urine RBC Urine WBC Ur Epithelial Cells Urine Bacteria Coarse Granular Casts 07/05/18 07/06/18 07/06/18 22:55 04:07 04:50 WBC RBC Hgb Hct MCV MCH MCHC RDW Plt Count MPV Neut % (Auto) Lymph % (Auto) [place] % (Auto) Eos % (Auto) Baso % (Auto) Lymph # (Auto) [place] # (Auto) Eos # (Auto) Baso # (Auto) Absolute Neuts (auto) pCO2 35 pO2 143.0 H HCO3 26.1 ABG pH 7.48 H ABG Total CO2 27.2 ABG O2 Saturation 99.4 H ABG O2 Content 16.5 ABG Base Excess 2.7 ABG Hemoglobin 11.9 ABG Carboxyhemoglobin 1.3 POC ABG HHb (Measured) 0.6 ABG Methemoglobin 1.0 ABG O2 Capacity 16.6 Hgb O2 Saturation 97.1 FiO2 60.0 Sodium Potassium Chloride Carbon Dioxide Anion Gap BUN Creatinine Est GFR ( Amer) Est GFR (Non-Af Amer) POC Glucose (mg/dL) 97 100 Random Glucose Calcium Phosphorus Magnesium Total Bilirubin AST ALT Alkaline Phosphatase Total Creatine Kinase CK-MB (CK-2) CK-MB (CK-2) % Total Protein Albumin Globulin Albumin/Globulin Ratio Urine Color Urine Appearance Urine pH Ur Specific [place] Urine Protein Urine Glucose (UA) Urine Ketones Urine Blood Urine Nitrate Urine Bilirubin Urine Urobilinogen Ur Leukocyte Esterase Urine RBC Urine WBC Ur Epithelial Cells Urine Bacteria Coarse Granular Casts 07/06/18 07/06/18 07/06/18 06:00 06:00 06:50 WBC 10.4 RBC 3.85 Hgb 11.7 L Hct 35.7 L MCV 92.7 MCH 30.4 MCHC 32.8 RDW 14.1 Plt Count 211 MPV 9.6 Neut % (Auto) 77.3 H Lymph % (Auto) 11.5 L [place] % (Auto) 9.0 H Eos % (Auto) 1.7 Baso % (Auto) 0.5 Lymph # (Auto) 1.2 [place] # (Auto) 0.9 H Eos # (Auto) 0.2 Baso # (Auto) 0.05 Absolute Neuts (auto) 8.07 H pCO2 pO2 HCO3 ABG pH ABG Total CO2 ABG O2 Saturation ABG O2 Content ABG Base Excess ABG Hemoglobin ABG Carboxyhemoglobin POC ABG HHb (Measured) ABG Methemoglobin ABG O2 Capacity Hgb O2 Saturation FiO2 Sodium 137 Potassium 3.9 Chloride 106 Carbon Dioxide 22 Anion Gap 13 BUN 14 Creatinine 0.9 Est GFR ( Amer) > 60 Est GFR (Non-Af Amer) > 60 POC Glucose (mg/dL) Random Glucose 95 Calcium 8.2 L Phosphorus 3.4 Magnesium 2.4 H Total Bilirubin 0.6 AST 99 H ALT 84 H Alkaline Phosphatase 63 Total Creatine Kinase 1077 H CK-MB (CK-2) 1.5 CK-MB (CK-2) % Cancelled Total Protein 7.0 Albumin 3.6 Globulin 3.4 Albumin/Globulin Ratio 1.0 L Urine Color Urine Appearance Urine pH Ur Specific [place] Urine Protein Urine Glucose (UA) Urine Ketones Urine Blood Urine Nitrate Urine Bilirubin Urine Urobilinogen Ur Leukocyte Esterase Urine RBC Urine WBC Ur Epithelial Cells Urine Bacteria Coarse Granular Casts 07/06/18 07/06/18 07/06/18 07:15 11:00 12:20 WBC RBC Hgb Hct MCV MCH MCHC RDW Plt Count MPV Neut % (Auto) Lymph % (Auto) [place] % (Auto) Eos % (Auto) Baso % (Auto) Lymph # (Auto) [place] # (Auto) Eos # (Auto) Baso # (Auto) Absolute Neuts (auto) pCO2 pO2 HCO3 ABG pH ABG Total CO2 ABG O2 Saturation ABG O2 Content ABG Base Excess ABG Hemoglobin ABG Carboxyhemoglobin POC ABG HHb (Measured) ABG Methemoglobin ABG O2 Capacity Hgb O2 Saturation FiO2 Sodium Potassium Chloride Carbon Dioxide Anion Gap BUN Creatinine Est GFR ( Amer) Est GFR (Non-Af Amer) POC Glucose (mg/dL) 99 122 H Random Glucose Calcium Phosphorus Magnesium Total Bilirubin AST ALT Alkaline Phosphatase Total Creatine Kinase CK-MB (CK-2) CK-MB (CK-2) % Total Protein Albumin Globulin Albumin/Globulin Ratio Urine Color Yellow Urine Appearance Clear Urine pH 6.0 Ur Specific [place] 1.025 Urine Protein Negative Urine Glucose (UA) Negative Urine Ketones Negative Urine Blood Trace-intact H Urine Nitrate Negative Urine Bilirubin Negative Urine Urobilinogen 1.0 H Ur Leukocyte Esterase Negative Urine RBC 2 - 5 H Urine WBC 0 - 2 Ur Epithelial Cells 0 - 2 Urine Bacteria Many Coarse Granular Casts Trace Radiology Impressions: Radiology Impressions Chest X-Ray 07/06/18 05:00 IMPRESSION: There has been significant improvement in the right lower lobe infiltrate. There is a persistent linear infiltrate. Assessment/Plan - Assessment and Plan (Free Text) Plan: Patient seen and examined on rounds with resident, agree with note with following additions/exceptions: Patient is 53yo male with PMhx of obesity, polysubstance abuse, EtOH abuse, HTN, smoker, a/w s/p Vfib cardiac arrest, s/p PCI with RCA stent with IABP IABP subsequently discontinued Pt not initiated on hypothermic protocol upon admission to MICU due to active bleeding from stomach, mouth, and epistaxis Currently afebrile, HD stable, comfortable in NAD VEEG obtained, results CTH noted, diffusze anoxic brain injury Patient has cough, gag reflex, but is not arousable Labs, imaging, chart reviewed HH has been stable Cardiology following Neurology consulted Syncope HTN VFIB arrest s/p ROSC s/p PCI CAD anoxic brain injury Recommend: - cont with vent support, low tidal vol ventilation, duonebs PRN, daily sedation vacation, CPAP trials, ABG, CXR - Nicotine Patch 21mcg - borad spectrum abx, although cultures thus far negative, suspect central fever - ASA, Statin, Prasugrel - Neuro follow up - follow up cardio - FS control - GI ppx - DVT ppx, HSQ - Monitor in MICU Poor prognosis Will need trach and PEG, LTACH Critical care time 35 minutes
[2018-07-06 06:58] LABS: BASO # 0.05 K/mm3 (0.0-2.0); BASO % 0.5 % (0.0-3.0); EOS # 0.2 (0.0-0.7); EOS % 1.7 % (1.5-5.0); HEMOGLOBIN 11.7 g/dL (14.0-18.0); LYMPH # 1.2 (1.2-3.4); LYMPH % 11.5 % (22.0-35.0); MEAN CELL VOLUME 92.7 fl (80.0-105.0); MEAN CORPUSCULAR HEMOGLOBIN 30.4 pg (25.0-35.0); MEAN CORPUSCULAR HGB CONC 32.8 g/dl (31.0-37.0); MEAN PLATELET VOLUME 9.6 fl (7.0-11.0); MONO # 0.9 (0.1-0.6); RBC 3.85 10^6/uL (3.5-6.1); RED CELL DISTRIBUTION WIDTH 14.1 % (11.5-14.5); WHITE BLOOD COUNT 10.4 10^3/uL (4.5-11.0)
[2018-07-06 07:06] LABS: ALBUMIN 3.6 g/dL (3.0-4.8); ALT/SGPT 84 U/L (7-56); AST/SGOT 99 U/L (17-59); BLOOD UREA NITROGEN 14 mg/dL (7-21); CALCIUM 8.2 mg/dL (8.4-10.5); GFR NON-AFRICAN AMERICAN > 60
[2018-07-06 08:27] LABS: CK-MB 1.5 ng/mL (0.0-3.6)
[2018-07-06] MEDS: Midazolam 100 mg/100ml in NS 100 MG/100 ML SOL IV PRN (08:47)
--- NOTE | 2018-07-06 09:37 | RAD ---
Date of service: 07/06/2018 HISTORY: on vent COMPARISON: 07/05/2018 TECHNIQUE: 1 view obtained. FINDINGS: LUNGS: There has been significant improvement in the right lower lobe infiltrate. There is a persistent linear infiltrate. PLEURA: No significant pleural effusion identified, no pneumothorax apparent. CARDIOVASCULAR: No aortic atherosclerotic calcification present. Mild cardiomegaly no pulmonary vascular congestion. OSSEOUS STRUCTURES: No significant abnormalities. VISUALIZED UPPER ABDOMEN: Normal. OTHER FINDINGS: Endotracheal tube and nasogastric tube in satisfactory position IMPRESSION: There has been significant improvement in the right lower lobe infiltrate. There is a persistent linear infiltrate.
[2018-07-06 14:00] LABS: URINE BILIRUBIN NEGATIVE (NEGATIVE); URINE BLOOD TRACE-INTACT (NEGATIVE); URINE GLUCOSE (UA) NEGATIVE (NEGATIVE); URINE LEUKOCYTE ESTERASE NEGATIVE Leu/uL (NEGATIVE); URINE PROTEIN NEGATIVE mg/dL (<30 mg/dL)
[2018-07-06] MEDS: Sodium Chloride 0.9% 1,000 ML IV SCH (14:00)
[2018-07-06 14:05] LABS: URINE APPEARANCE CLEAR (CLEAR); URINE COLOR YELLOW (YELLOW)
[2018-07-06 14:24] LABS: URINE BACTERIA MANY /hpf; URINE COARSE GRANULAR CAST TRACE /hpf; URINE EPITHELIAL CELLS 0 - 2 /hpf (0-5); URINE WBC 0 - 2 /hpf (0-6)
--- NOTE | 2018-07-06 14:57 | PN ---
DATE: 07/06/2018 SUBJECTIVE: I saw him this morning in the intensive care unit, still on the ventilator, is on Ativan, Diprivan, DuoNeb, Ecotrin, Effient, heparin, Lopressor, midazolam, Nicoderm, Protonix, IV fluids, vitamins B1 and Zosyn. PHYSICAL EXAMINATION: VITAL SIGNS: He has a 100.9 temperature, 99 pulse, 169/86 blood pressure, 25 respiratory rate and 99% O2 sat on mechanical ventilator. HEAD: Atraumatic and normocephalic. HEART: Regular rate. LUNGS: Decreased breath sounds. ABDOMEN: Soft, nontender. EXTREMITIES: No edema. ASSESSMENT AND PLAN: He is still in trouble. He has multiple issues going on as far as acute respiratory failure. He was a code aseptic, he had alcohol abuse. Continue with aggressive treatment and care on Reuben Fung. Ministerio Wan DO
--- NOTE | 2018-07-06 18:05 | PN ---
DATE: 07/06/2018 CARDIOLOGY FOLLOWUP SUBJECTIVE: The patient remains on a ventilator. PHYSICAL EXAMINATION: VITAL SIGNS: Blood pressure 115/67, heart rates in the 60s. NECK: Negative JVD. LUNGS: Without rales. HEART: S1 and S2. EXTREMITIES: Without edema. LABORATORY DATA: Hemoglobin is 11.7, BUN and creatinine are unremarkable. IMPRESSION: 1. Respiratory failure. 2. Status post acute inferior wall myocardial infarction with right ventricle involvement. 3. Status post cardiogenic shock. 4. Anoxic encephalopathy. 5. History of smoking with probable chronic obstructive pulmonary disease. Given these findings, the patient's anoxic encephalopathy makes his prognosis guarded. We will continue support at this time. His cardiac status appears to be stable at this time. Devonte Patel MD
[2018-07-07] MEDS: Propofol 10 mg/ml 1,000 MG/100 ML VIAL IV PRN ×7 (00:49→23:53)
[2018-07-07] MEDS: Albuterol-Ipratrop 3 mg / 0.5 (3 ml) UD IH SCH ×4 (01:24→20:10)
[2018-07-07] MEDS: Piperacillin/Tazobact 3.375 gm 100 ML IVPB SCH ×3 (05:10→22:50)
[2018-07-07 05:25] LABS: ARTERIAL BLOOD GAS HCO3 29.1 mmol/L (21-28); ARTERIAL BLOOD GAS O2 SAT 99.1 % (95-98); ARTERIAL BLOOD GAS PCO2 40 mm/Hg (35-45); ARTERIAL BLOOD GAS PH 7.47 (7.35-7.45); ARTERIAL BLOOD GAS TCO2 30.3 mmol.L (22-28)
[2018-07-07 06:21] LABS: BASO # 0.03 K/mm3 (0.0-2.0); BASO % 0.3 % (0.0-3.0); EOS # 0.3 (0.0-0.7); HEMOGLOBIN 11.4 g/dL (14.0-18.0); LYMPH # 1.5 (1.2-3.4); MEAN CELL VOLUME 93.9 fl (80.0-105.0); MEAN CORPUSCULAR HEMOGLOBIN 30.5 pg (25.0-35.0); MEAN CORPUSCULAR HGB CONC 32.5 g/dl (31.0-37.0); MEAN PLATELET VOLUME 9.6 fl (7.0-11.0); MONO # 0.6 (0.1-0.6); MONO % 5.7 % (1.0-6.0); RBC 3.74 10^6/uL (3.5-6.1); RED CELL DISTRIBUTION WIDTH 14.3 % (11.5-14.5); WHITE BLOOD COUNT 10.9 10^3/uL (4.5-11.0)
[2018-07-07 07:12] LABS: ALB/GLOB RATIO 1.1 (1.1-1.8); ALBUMIN 3.1 g/dL (3.0-4.8); ALT/SGPT 76 U/L (7-56); AST/SGOT 68 U/L (17-59); BLOOD UREA NITROGEN 14 mg/dL (7-21); CALCIUM 8.1 mg/dL (8.4-10.5); GFR NON-AFRICAN AMERICAN > 60
--- NOTE | 2018-07-07 09:04 | RAD ---
Date of service: 07/07/2018 HISTORY: ET tube placement COMPARISON: 07/06/2018 TECHNIQUE: 1 view obtained. FINDINGS: LUNGS: No active pulmonary disease. PLEURA: No significant pleural effusion identified, no pneumothorax apparent. CARDIOVASCULAR: No aortic atherosclerotic calcification present. Normal cardiac size. No pulmonary vascular congestion. OSSEOUS STRUCTURES: No significant abnormalities. VISUALIZED UPPER ABDOMEN: Normal. OTHER FINDINGS: None. IMPRESSION: The endotracheal tube and nasogastric tubes are in satisfactory position
--- NOTE | 2018-07-07 11:22 | CP.CCUPN ---
<Mike Vale - Last Filed: 07/07/18 12:49> CCU Subjective - Physician Review Events Since Last Encounter (Free Text): 07/07/18 11:19 no acute events overnight Subjective (Free Text): 07/07/18 11:21 pt seen and examined this morning, pt intubated at this time CCU Objective - Vital Signs / Intake & Output Vital Signs (Last 4 hours): Vital Signs Pulse BP Pulse Ox 07/07/18 11:01 75 138/99 H 100 07/07/18 10:00 84 159/87 H 99 07/07/18 09:13 76 140/79 07/07/18 09:00 76 140/79 100 07/07/18 08:00 80 137/81 100 Intake and Output (Last 8hrs): Intake & Output 07/06/18 07/07/18 07/07/18 22:59 06:59 14:59 Intake Total 4840 2139 125 Output Total 3700 1200 Balance 1140 939 125 Intake: IV 2540 1239 125 Left Hand 12 Left Wrist 800 Right Antecubital 2440 227 Tube Feeding 1800 900 Other 500 Output: Drainage 0 Bilateral Nare 0 Urine 3700 1200 Urethral ([place]) 3700 1200 Stool 0 Urine/Stool Mix 0 Emesis 0 Oral Regurgitation 0 Other 0 Other: # Bowel Movements 0 2 - Physical Exam Physical Exam Limitations: Positive for: Altered Mental Status Head: Positive for: Atraumatic, Normocephalic Pupils: Positive for: Sluggish Extroacular Muscles: Positive for: EOMI Conjunctiva: Positive for: Normal Mouth: Positive for: Moist Mucous Membranes Neck: Negative for: MIDLINE TENDERNESS Cardiovascular: Positive for: Regular Rate and Rhythm, Normal S1, S2. Negative for: Murmurs Abdomen: Negative for: Tenderness, Distention, Peritoneal Signs, Mass/Organomegaly Back: Positive for: Normal Inspection Upper Extremity: Positive for: Normal Inspection. Negative for: Cyanosis, Edema Lower Extremity: Positive for: Normal Inspection, NORMAL PULSES. Negative for: Edema, Cyanosis, Swelling, Erythema Neurological: Positive for: Other (sedated) Skin: Positive for: Warm, Dry, Normal Color. Negative for: Rashes Psychiatric: Positive for: Other (intubated) - Medications Active Medications: Active Medications Generic Name Dose Route Start Last Admin Trade Name Freq PRN Reason Stop Dose Admin Albuterol/Ipratropium 3 ml 07/01/18 17:28 07/04/18 08:16 Duoneb 3 Mg/0.5 Mg (3 Ml) Ud IH 3 ml Q2H PRN Administration Shortness of Breath Albuterol/Ipratropium 3 ml 07/04/18 14:00 07/07/18 07:08 Duoneb 3 Mg/0.5 Mg (3 Ml) Ud IH 3 ml [id number] ALIN Administration Aspirin 81 mg 07/02/18 10:30 07/07/18 09:13 Ecotrin PO 81 mg DAILY ALIN Administration Heparin Sodium (Porcine) 5,000 units 07/03/18 14:00 07/07/18 05:10 Heparin SC 5,000 units Q8 ALIN Administration Protocol Piperacillin Sod/Tazobactam Sod 100 mls @ 25 mls/hr 07/03/18 14:00 07/07/18 05:10 Zosyn 3.375 In Ns 100ml IVPB 07/11/18 14:01 25 mls/hr Q8 ALIN Administration Protocol Propofol 1,000 mg in 100 mls @ 6.314 mls/hr 07/04/18 18:28 07/07/18 10:00 Diprivan IV 40 mcg/kg/min .[id number] PRN 25.256 mls/hr TITRATE PER MD ORDER Titration Protocol 10 MCG/KG/MIN Sodium Chloride 1,000 mls @ 50 mls/hr 07/05/18 17:07 07/06/18 14:00 Sodium Chloride 0.9% IV 50 mls/hr .Q20H ALIN Administration Midazolam 100 mg/100ml in NS 100 mg in 100 mls @ 2 mls/hr 07/06/18 07:50 07/07/18 10:00 Midazolam 100 Mg/100ml In Ns IV 2 mg/hr .Q24H PRN 2 mls/hr Sedation Titration Protocol 2 MG/HR Potassium Chloride 10 meq in 100 mls @ 100 mls/hr 07/07/18 09:00 07/07/18 09:30 Potassium Chloride 10 Meq/100 Ml IVPB 07/07/18 11:59 100 mls/hr Q2H ALIN Administration Lorazepam 2 mg 07/01/18 14:13 07/06/18 07:54 Ativan IVP 2 mg Q2H PRN Administration Anxiety Protocol Metoprolol Tartrate 25 mg 07/03/18 12:00 07/07/18 09:13 Lopressor PO 25 mg BID ALIN Administration Nicotine 1 patch 07/02/18 10:00 07/07/18 09:12 Nicoderm Cq TD 1 patch DAILY ALIN Administration Pantoprazole Sodium 40 mg 07/01/18 22:00 07/07/18 09:12 Protonix Inj IVP 40 mg Q12 ALIN Administration Prasugrel 10 mg 07/04/18 10:00 07/07/18 09:12 Effient PO 10 mg DAILY ALIN Administration Thiamine HCl 500 mg 07/04/18 10:00 07/07/18 09:12 Vitamin B1 Tab PO 07/10/18 10:01 500 mg DAILY ALIN Administration - Patient Studies Lab Studies: Microbiology Studies 07/02/18 12:55 Blood Culture - Preliminary Blood NO GROWTH AFTER 4 DAYS Lab Studies 07/07/18 07/07/18 07/07/18 Range/Units 07:17 05:50 05:50 WBC 10.9 (4.5-11.0) 10^3/uL RBC 3.74 (3.5-6.1) 10^6/uL Hgb 11.4 L (14.0-18.0) g/dL Hct 35.1 L (42.0-52.0) % MCV 93.9 (80.0-105.0) fl MCH 30.5 (25.0-35.0) pg MCHC 32.5 (31.0-37.0) g/dl RDW 14.3 (11.5-14.5) % Plt Count 216 (120.0-450.0) 10^3/uL MPV 9.6 (7.0-11.0) fl Neut % (Auto) 77.0 H (50.0-68.0) % Lymph % (Auto) 14.0 L (22.0-35.0) % Simpson % (Auto) 5.7 (1.0-6.0) % Eos % (Auto) 3.0 (1.5-5.0) % Baso % (Auto) 0.3 (0.0-3.0) % Lymph # (Auto) 1.5 (1.2-3.4) Simpson # (Auto) 0.6 (0.1-0.6) Eos # (Auto) 0.3 (0.0-0.7) Baso # (Auto) 0.03 (0.0-2.0) K/mm3 Absolute Neuts (auto) 8.36 H (1.4-6.5) pCO2 (35-45) mm/Hg pO2 (80-100) mm/Hg HCO3 (21-28) mmol/L ABG pH (7.35-7.45) ABG Total CO2 (22-28) mmol.L ABG O2 Saturation (95-98) % ABG Base Excess (-2.0-3.0) mmol/L ABG Potassium (3.6-5.2) mmol/L Sodium 138 (132-148) mmol/L Chloride 105 (98-107) mmol/L Glucose (75-110) mg/dl Lactate (0.7-2.1) mmol/L FiO2 % Potassium 3.5 L (3.6-5.0) mmol/L Carbon Dioxide 30 (21-33) mmol/L Anion Gap 7 L (10-20) BUN 14 (7-21) mg/dL Creatinine 0.8 (0.8-1.5) mg/dl Est GFR ( Amer) > 60 Est GFR (Non-Af Amer) > 60 POC Glucose (mg/dL) 124 H (65-110) mg/dL Random Glucose 122 H (70-110) mg/dL Calcium 8.1 L (8.4-10.5) mg/dL Phosphorus 3.5 (2.5-4.5) mg/dL Magnesium 2.2 (1.7-2.2) mg/dL Total Bilirubin 0.4 (0.2-1.3) mg/dL AST 68 H D (17-59) U/L ALT 76 H (7-56) U/L Alkaline Phosphatase 48 (38-126) U/L Total Protein 6.0 (5.8-8.3) g/dL Albumin 3.1 (3.0-4.8) g/dL Globulin 2.9 gm/dL Albumin/Globulin Ratio 1.1 (1.1-1.8) Arterial Blood Potassium (3.6-5.2) mmol/L Urine Color (YELLOW) Urine Appearance (CLEAR) Urine pH (4.7-8.0) Ur Specific [place] (1.005-1.035) Urine Protein (<30 mg/dL) mg/dL Urine Glucose (UA) (NEGATIVE) mg/dL Urine Ketones (NEGATIVE) mg/dL Urine Blood (NEGATIVE) Urine Nitrate (NEGATIVE) Urine Bilirubin (NEGATIVE) Urine Urobilinogen (<1 E.U./dL) E.U./dL Ur Leukocyte Esterase (NEGATIVE) Otis/uL Urine RBC (0-2) /hpf Urine WBC (0-6) /hpf Ur Epithelial Cells (0-5) /hpf Urine Bacteria (NONE) /hpf Coarse Granular Casts (NONE) /hpf 07/07/18 07/06/18 07/06/18 Range/Units 05:20 21:59 16:37 WBC (4.5-11.0) 10^3/uL RBC (3.5-6.1) 10^6/uL Hgb (14.0-18.0) g/dL Hct (42.0-52.0) % MCV (80.0-105.0) fl MCH (25.0-35.0) pg MCHC (31.0-37.0) g/dl RDW (11.5-14.5) % Plt Count (120.0-450.0) 10^3/uL MPV (7.0-11.0) fl Neut % (Auto) (50.0-68.0) % Lymph % (Auto) (22.0-35.0) % Simpson % (Auto) (1.0-6.0) % Eos % (Auto) (1.5-5.0) % Baso % (Auto) (0.0-3.0) % Lymph # (Auto) (1.2-3.4) Simpson # (Auto) (0.1-0.6) Eos # (Auto) (0.0-0.7) Baso # (Auto) (0.0-2.0) K/mm3 Absolute Neuts (auto) (1.4-6.5) pCO2 40 (35-45) mm/Hg pO2 106.0 H (80-100) mm/Hg HCO3 29.1 H (21-28) mmol/L ABG pH 7.47 H (7.35-7.45) ABG Total CO2 30.3 H (22-28) mmol.L ABG O2 Saturation 99.1 H (95-98) % ABG Base Excess 5.0 H (-2.0-3.0) mmol/L ABG Potassium 3.5 L (3.6-5.2) mmol/L Sodium 140.0 (132-148) mmol/L Chloride 107.0 (98-107) mmol/L Glucose 112 H (75-110) mg/dl Lactate 0.7 (0.7-2.1) mmol/L FiO2 60.0 % Potassium (3.6-5.0) mmol/L Carbon Dioxide (21-33) mmol/L Anion Gap (10-20) BUN (7-21) mg/dL Creatinine (0.8-1.5) mg/dl Est GFR ( Amer) Est GFR (Non-Af Amer) POC Glucose (mg/dL) 100 155 H (65-110) mg/dL Random Glucose (70-110) mg/dL Calcium (8.4-10.5) mg/dL Phosphorus (2.5-4.5) mg/dL Magnesium (1.7-2.2) mg/dL Total Bilirubin (0.2-1.3) mg/dL AST (17-59) U/L ALT (7-56) U/L Alkaline Phosphatase (38-126) U/L Total Protein (5.8-8.3) g/dL Albumin (3.0-4.8) g/dL Globulin gm/dL Albumin/Globulin Ratio (1.1-1.8) Arterial Blood Potassium 3.5 L (3.6-5.2) mmol/L Urine Color (YELLOW) Urine Appearance (CLEAR) Urine pH (4.7-8.0) Ur Specific [place] (1.005-1.035) Urine Protein (<30 mg/dL) mg/dL Urine Glucose (UA) (NEGATIVE) mg/dL Urine Ketones (NEGATIVE) mg/dL Urine Blood (NEGATIVE) Urine Nitrate (NEGATIVE) Urine Bilirubin (NEGATIVE) Urine Urobilinogen (<1 E.U./dL) E.U./dL Ur Leukocyte Esterase (NEGATIVE) Otis/uL Urine RBC (0-2) /hpf Urine WBC (0-6) /hpf Ur Epithelial Cells (0-5) /hpf Urine Bacteria (NONE) /hpf Coarse Granular Casts (NONE) /hpf 07/06/18 Range/Units 12:20 WBC (4.5-11.0) 10^3/uL RBC (3.5-6.1) 10^6/uL Hgb (14.0-18.0) g/dL Hct (42.0-52.0) % MCV (80.0-105.0) fl MCH (25.0-35.0) pg MCHC (31.0-37.0) g/dl RDW (11.5-14.5) % Plt Count (120.0-450.0) 10^3/uL MPV (7.0-11.0) fl Neut % (Auto) (50.0-68.0) % Lymph % (Auto) (22.0-35.0) % Simpson % (Auto) (1.0-6.0) % Eos % (Auto) (1.5-5.0) % Baso % (Auto) (0.0-3.0) % Lymph # (Auto) (1.2-3.4) Simpson # (Auto) (0.1-0.6) Eos # (Auto) (0.0-0.7) Baso # (Auto) (0.0-2.0) K/mm3 Absolute Neuts (auto) (1.4-6.5) pCO2 (35-45) mm/Hg pO2 (80-100) mm/Hg HCO3 (21-28) mmol/L ABG pH (7.35-7.45) ABG Total CO2 (22-28) mmol.L ABG O2 Saturation (95-98) % ABG Base Excess (-2.0-3.0) mmol/L ABG Potassium (3.6-5.2) mmol/L Sodium (132-148) mmol/L Chloride (98-107) mmol/L Glucose (75-110) mg/dl Lactate (0.7-2.1) mmol/L FiO2 % Potassium (3.6-5.0) mmol/L Carbon Dioxide (21-33) mmol/L Anion Gap (10-20) BUN (7-21) mg/dL Creatinine (0.8-1.5) mg/dl Est GFR ( Amer) Est GFR (Non-Af Amer) POC Glucose (mg/dL) (65-110) mg/dL Random Glucose (70-110) mg/dL Calcium (8.4-10.5) mg/dL Phosphorus (2.5-4.5) mg/dL Magnesium (1.7-2.2) mg/dL Total Bilirubin (0.2-1.3) mg/dL AST (17-59) U/L ALT (7-56) U/L Alkaline Phosphatase (38-126) U/L Total Protein (5.8-8.3) g/dL Albumin (3.0-4.8) g/dL Globulin gm/dL Albumin/Globulin Ratio (1.1-1.8) Arterial Blood Potassium (3.6-5.2) mmol/L Urine Color Yellow (YELLOW) Urine Appearance Clear (CLEAR) Urine pH 6.0 (4.7-8.0) Ur Specific [place] 1.025 (1.005-1.035) Urine Protein Negative (<30 mg/dL) mg/dL Urine Glucose (UA) Negative (NEGATIVE) mg/dL Urine Ketones Negative (NEGATIVE) mg/dL Urine Blood Trace-intact H (NEGATIVE) Urine Nitrate Negative (NEGATIVE) Urine Bilirubin Negative (NEGATIVE) Urine Urobilinogen 1.0 H (<1 E.U./dL) E.U./dL Ur Leukocyte Esterase Negative (NEGATIVE) Otis/uL Urine RBC 2 - 5 H (0-2) /hpf Urine WBC 0 - 2 (0-6) /hpf Ur Epithelial Cells 0 - 2 (0-5) /hpf Urine Bacteria Many (NONE) /hpf Coarse Granular Casts Trace (NONE) /hpf Laboratory Results - last 24 hr 07/06/18 07/06/18 07/06/18 12:20 16:37 21:59 WBC RBC Hgb Hct MCV MCH MCHC RDW Plt Count MPV Neut % (Auto) Lymph % (Auto) Simpson % (Auto) Eos % (Auto) Baso % (Auto) Lymph # (Auto) Simpson # (Auto) Eos # (Auto) Baso # (Auto) Absolute Neuts (auto) pCO2 pO2 HCO3 ABG pH ABG Total CO2 ABG O2 Saturation ABG Base Excess ABG Potassium Sodium Chloride Glucose Lactate FiO2 Potassium Carbon Dioxide Anion Gap BUN Creatinine Est GFR ( Amer) Est GFR (Non-Af Amer) POC Glucose (mg/dL) 155 H 100 Random Glucose Calcium Phosphorus Magnesium Total Bilirubin AST ALT Alkaline Phosphatase Total Protein Albumin Globulin Albumin/Globulin Ratio Arterial Blood Potassium Urine Color Yellow Urine Appearance Clear Urine pH 6.0 Ur Specific [place] 1.025 Urine Protein Negative Urine Glucose (UA) Negative Urine Ketones Negative Urine Blood Trace-intact H Urine Nitrate Negative Urine Bilirubin Negative Urine Urobilinogen 1.0 H Ur Leukocyte Esterase Negative Urine RBC 2 - 5 H Urine WBC 0 - 2 Ur Epithelial Cells 0 - 2 Urine Bacteria Many Coarse Granular Casts Trace 07/07/18 07/07/18 07/07/18 05:20 05:50 05:50 WBC 10.9 RBC 3.74 Hgb 11.4 L Hct 35.1 L MCV 93.9 MCH 30.5 MCHC 32.5 RDW 14.3 Plt Count 216 MPV 9.6 Neut % (Auto) 77.0 H Lymph % (Auto) 14.0 L Simpson % (Auto) 5.7 Eos % (Auto) 3.0 Baso % (Auto) 0.3 Lymph # (Auto) 1.5 Simpson # (Auto) 0.6 Eos # (Auto) 0.3 Baso # (Auto) 0.03 Absolute Neuts (auto) 8.36 H pCO2 40 pO2 106.0 H HCO3 29.1 H ABG pH 7.47 H ABG Total CO2 30.3 H ABG O2 Saturation 99.1 H ABG Base Excess 5.0 H ABG Potassium 3.5 L Sodium 140.0 138 Chloride 107.0 105 Glucose 112 H Lactate 0.7 FiO2 60.0 Potassium 3.5 L Carbon Dioxide 30 Anion Gap 7 L BUN 14 Creatinine 0.8 Est GFR ( Amer) > 60 Est GFR (Non-Af Amer) > 60 POC Glucose (mg/dL) Random Glucose 122 H Calcium 8.1 L Phosphorus 3.5 Magnesium 2.2 Total Bilirubin 0.4 AST 68 H D ALT 76 H Alkaline Phosphatase 48 Total Protein 6.0 Albumin 3.1 Globulin 2.9 Albumin/Globulin Ratio 1.1 Arterial Blood Potassium 3.5 L Urine Color Urine Appearance Urine pH Ur Specific [place] Urine Protein Urine Glucose (UA) Urine Ketones Urine Blood Urine Nitrate Urine Bilirubin Urine Urobilinogen Ur Leukocyte Esterase Urine RBC Urine WBC Ur Epithelial Cells Urine Bacteria Coarse Granular Casts 07/07/18 07:17 WBC RBC Hgb Hct MCV MCH MCHC RDW Plt Count MPV Neut % (Auto) Lymph % (Auto) Simpson % (Auto) Eos % (Auto) Baso % (Auto) Lymph # (Auto) Simpson # (Auto) Eos # (Auto) Baso # (Auto) Absolute Neuts (auto) pCO2 pO2 HCO3 ABG pH ABG Total CO2 ABG O2 Saturation ABG Base Excess ABG Potassium Sodium Chloride Glucose Lactate FiO2 Potassium Carbon Dioxide Anion Gap BUN Creatinine Est GFR ( Amer) Est GFR (Non-Af Amer) POC Glucose (mg/dL) 124 H Random Glucose Calcium Phosphorus Magnesium Total Bilirubin AST ALT Alkaline Phosphatase Total Protein Albumin Globulin Albumin/Globulin Ratio Arterial Blood Potassium Urine Color Urine Appearance Urine pH Ur Specific [place] Urine Protein Urine Glucose (UA) Urine Ketones Urine Blood Urine Nitrate Urine Bilirubin Urine Urobilinogen Ur Leukocyte Esterase Urine RBC Urine WBC Ur Epithelial Cells Urine Bacteria Coarse Granular Casts Radiology Impressions: Radiology Impressions Chest X-Ray 07/07/18 07:52 IMPRESSION: The endotracheal tube and nasogastric tubes are in satisfactory position Fingerstick Blood Sugar Results: 124 Assessment/Plan - Assessment and Plan (Free Text) Assessment: Pt is a 53 yo male admitted to ICU s/p cardiac arrest with subsequent PCI and RCA stent placed. Intubated on PRVC and sedated on propofol. Plan: Neuro - Intubated/sedated, maintain normothermia - propofol 50 mcg, versed - hypothermic protocol not initiated on admission to ICU due to epistaxis and hemoptysis at that time - CT head: negative for ICH - Video EEG: shows no seizure activity - continue ativan prn - Neuro consulted, Dr King Cardio - cardiac arrest due to VFib s/p PCI with RCA ANALISA - asa, effient, lopressor - maintain MAP>65 - ECHO pending official read - cardio consulted, Dr Patel Pulm - PRVC 450/18/5/60 - head elevation 30 degree - maintain O2>92% - duonebs prn GI - LFTs improving - hold statins due to elevated LFT - U/S abdomen fibro/fatty infiltration of the liver Renal - rhabdomyolysis likely due to defibrillation - CPK 7571, 4355, 1077 - UDS positive for amphetamine, benzo - IVF NS @50 - euvolemia ID - sputum cx positive for S. aureus - blood cx NGTD - procal 0.73 - continue zosyn per ID - HIV, legionella, MRSA negative - ID consulted, Dr Michelle Heme - Hb stable - continue monitoring Pt seen, examined, assessment and plan discussed with Dr Ruddy Vale PGY1 - Date & Time Date: 07/07/18 Time: 07:00 <Brendon Fox - Last Filed: 07/07/18 13:28> CCU Objective - Vital Signs / Intake & Output Vital Signs (Last 4 hours): Vital Signs Pulse BP Pulse Ox 07/07/18 11:01 75 138/99 H 100 07/07/18 10:00 84 159/87 H 99 Intake and Output (Last 8hrs): Intake & Output 07/06/18 07/07/18 07/07/18 22:59 06:59 14:59 Intake Total 4840 2139 225 Output Total 3700 1200 Balance 1140 939 225 Intake: IV 2540 1239 225 Left Hand 12 Left Wrist 800 Right Antecubital 2440 227 Tube Feeding 1800 900 Other 500 Output: Drainage 0 Bilateral Nare 0 Urine 3700 1200 Urethral ([place]) 3700 1200 Stool 0 Urine/Stool Mix 0 Emesis 0 Oral Regurgitation 0 Other 0 Other: # Bowel Movements 0 2 - Medications Active Medications: Active Medications Generic Name Dose Route Start Last Admin Trade Name Freq PRN Reason Stop Dose Admin Albuterol/Ipratropium 3 ml 07/01/18 17:28 07/04/18 08:16 Duoneb 3 Mg/0.5 Mg (3 Ml) Ud IH 3 ml Q2H PRN Administration Shortness of Breath Albuterol/Ipratropium 3 ml 07/04/18 14:00 07/07/18 13:13 Duoneb 3 Mg/0.5 Mg (3 Ml) Ud IH 3 ml [id number] ALIN Administration Aspirin 81 mg 07/02/18 10:30 07/07/18 09:13 Ecotrin PO 81 mg DAILY ALIN Administration Heparin Sodium (Porcine) 5,000 units 07/03/18 14:00 07/07/18 05:10 Heparin SC 5,000 units Q8 ALIN Administration Protocol Piperacillin Sod/Tazobactam Sod 100 mls @ 25 mls/hr 07/03/18 14:00 07/07/18 05:10 Zosyn 3.375 In Ns 100ml IVPB 07/11/18 14:01 25 mls/hr Q8 ALIN Administration Protocol Propofol 1,000 mg in 100 mls @ 6.314 mls/hr 07/04/18 18:28 07/07/18 12:51 Diprivan IV 40 mcg/kg/min .[id number] PRN 25.256 mls/hr TITRATE PER MD ORDER Administration Protocol 10 MCG/KG/MIN Sodium Chloride 1,000 mls @ 50 mls/hr 07/05/18 17:07 07/06/18 14:00 Sodium Chloride 0.9% IV 50 mls/hr .Q20H ALIN Administration Midazolam 100 mg/100ml in NS 100 mg in 100 mls @ 2 mls/hr 07/06/18 07:50 07/07/18 10:00 Midazolam 100 Mg/100ml In Ns IV 2 mg/hr .Q24H PRN 2 mls/hr Sedation Titration Protocol 2 MG/HR Lorazepam 2 mg 07/01/18 14:13 07/06/18 07:54 Ativan IVP 2 mg Q2H PRN Administration Anxiety Protocol Metoprolol Tartrate 25 mg 07/03/18 12:00 07/07/18 09:13 Lopressor PO 25 mg BID ALIN Administration Nicotine 1 patch 07/02/18 10:00 07/07/18 09:12 Nicoderm Cq TD 1 patch DAILY ALIN Administration Pantoprazole Sodium 40 mg 07/01/18 22:00 07/07/18 09:12 Protonix Inj IVP 40 mg Q12 ALIN Administration Prasugrel 10 mg 07/04/18 10:00 07/07/18 09:12 Effient PO 10 mg DAILY ALIN Administration Thiamine HCl 500 mg 07/04/18 10:00 07/07/18 09:12 Vitamin B1 Tab PO 07/10/18 10:01 500 mg DAILY ALIN Administration - Patient Studies Lab Studies: Microbiology Studies 07/02/18 12:55 Blood Culture - Preliminary Blood NO GROWTH AFTER 4 DAYS Lab Studies 07/07/18 07/07/18 07/07/18 Range/Units 07:17 05:50 05:50 WBC 10.9 (4.5-11.0) 10^3/uL RBC 3.74 (3.5-6.1) 10^6/uL Hgb 11.4 L (14.0-18.0) g/dL Hct 35.1 L (42.0-52.0) % MCV 93.9 (80.0-105.0) fl MCH 30.5 (25.0-35.0) pg MCHC 32.5 (31.0-37.0) g/dl RDW 14.3 (11.5-14.5) % Plt Count 216 (120.0-450.0) 10^3/uL MPV 9.6 (7.0-11.0) fl Neut % (Auto) 77.0 H (50.0-68.0) % Lymph % (Auto) 14.0 L (22.0-35.0) % Simpson % (Auto) 5.7 (1.0-6.0) % Eos % (Auto) 3.0 (1.5-5.0) % Baso % (Auto) 0.3 (0.0-3.0) % Lymph # (Auto) 1.5 (1.2-3.4) Simpson # (Auto) 0.6 (0.1-0.6) Eos # (Auto) 0.3 (0.0-0.7) Baso # (Auto) 0.03 (0.0-2.0) K/mm3 Absolute Neuts (auto) 8.36 H (1.4-6.5) pCO2 (35-45) mm/Hg pO2 (80-100) mm/Hg HCO3 (21-28) mmol/L ABG pH (7.35-7.45) ABG Total CO2 (22-28) mmol.L ABG O2 Saturation (95-98) % ABG Base Excess (-2.0-3.0) mmol/L ABG Potassium (3.6-5.2) mmol/L Sodium 138 (132-148) mmol/L Chloride 105 (98-107) mmol/L Glucose (75-110) mg/dl Lactate (0.7-2.1) mmol/L FiO2 % Potassium 3.5 L (3.6-5.0) mmol/L Carbon Dioxide 30 (21-33) mmol/L Anion Gap 7 L (10-20) BUN 14 (7-21) mg/dL Creatinine 0.8 (0.8-1.5) mg/dl Est GFR ( Amer) > 60 Est GFR (Non-Af Amer) > 60 POC Glucose (mg/dL) 124 H (65-110) mg/dL Random Glucose 122 H (70-110) mg/dL Calcium 8.1 L (8.4-10.5) mg/dL Phosphorus 3.5 (2.5-4.5) mg/dL Magnesium 2.2 (1.7-2.2) mg/dL Total Bilirubin 0.4 (0.2-1.3) mg/dL AST 68 H D (17-59) U/L ALT 76 H (7-56) U/L Alkaline Phosphatase 48 (38-126) U/L Total Protein 6.0 (5.8-8.3) g/dL Albumin 3.1 (3.0-4.8) g/dL Globulin 2.9 gm/dL Albumin/Globulin Ratio 1.1 (1.1-1.8) Arterial Blood Potassium (3.6-5.2) mmol/L Urine Color (YELLOW) Urine Appearance (CLEAR) Urine pH (4.7-8.0) Ur Specific [place] (1.005-1.035) Urine Protein (<30 mg/dL) mg/dL Urine Glucose (UA) (NEGATIVE) mg/dL Urine Ketones (NEGATIVE) mg/dL Urine Blood (NEGATIVE) Urine Nitrate (NEGATIVE) Urine Bilirubin (NEGATIVE) Urine Urobilinogen (<1 E.U./dL) E.U./dL Ur Leukocyte Esterase (NEGATIVE) Otis/uL Urine RBC (0-2) /hpf Urine WBC (0-6) /hpf Ur Epithelial Cells (0-5) /hpf Urine Bacteria (NONE) /hpf Coarse Granular Casts (NONE) /hpf 07/07/18 07/06/18 07/06/18 Range/Units 05:20 21:59 16:37 WBC (4.5-11.0) 10^3/uL RBC (3.5-6.1) 10^6/uL Hgb (14.0-18.0) g/dL Hct (42.0-52.0) % MCV (80.0-105.0) fl MCH (25.0-35.0) pg MCHC (31.0-37.0) g/dl RDW (11.5-14.5) % Plt Count (120.0-450.0) 10^3/uL MPV (7.0-11.0) fl Neut % (Auto) (50.0-68.0) % Lymph % (Auto) (22.0-35.0) % Simpson % (Auto) (1.0-6.0) % Eos % (Auto) (1.5-5.0) % Baso % (Auto) (0.0-3.0) % Lymph # (Auto) (1.2-3.4) Simpson # (Auto) (0.1-0.6) Eos # (Auto) (0.0-0.7) Baso # (Auto) (0.0-2.0) K/mm3 Absolute Neuts (auto) (1.4-6.5) pCO2 40 (35-45) mm/Hg pO2 106.0 H (80-100) mm/Hg HCO3 29.1 H (21-28) mmol/L ABG pH 7.47 H (7.35-7.45) ABG Total CO2 30.3 H (22-28) mmol.L ABG O2 Saturation 99.1 H (95-98) % ABG Base Excess 5.0 H (-2.0-3.0) mmol/L ABG Potassium 3.5 L (3.6-5.2) mmol/L Sodium 140.0 (132-148) mmol/L Chloride 107.0 (98-107) mmol/L Glucose 112 H (75-110) mg/dl Lactate 0.7 (0.7-2.1) mmol/L FiO2 60.0 % Potassium (3.6-5.0) mmol/L Carbon Dioxide (21-33) mmol/L Anion Gap (10-20) BUN (7-21) mg/dL Creatinine (0.8-1.5) mg/dl Est GFR ( Amer) Est GFR (Non-Af Amer) POC Glucose (mg/dL) 100 155 H (65-110) mg/dL Random Glucose (70-110) mg/dL Calcium (8.4-10.5) mg/dL Phosphorus (2.5-4.5) mg/dL Magnesium (1.7-2.2) mg/dL Total Bilirubin (0.2-1.3) mg/dL AST (17-59) U/L ALT (7-56) U/L Alkaline Phosphatase (38-126) U/L Total Protein (5.8-8.3) g/dL Albumin (3.0-4.8) g/dL Globulin gm/dL Albumin/Globulin Ratio (1.1-1.8) Arterial Blood Potassium 3.5 L (3.6-5.2) mmol/L Urine Color (YELLOW) Urine Appearance (CLEAR) Urine pH (4.7-8.0) Ur Specific [place] (1.005-1.035) Urine Protein (<30 mg/dL) mg/dL Urine Glucose (UA) (NEGATIVE) mg/dL Urine Ketones (NEGATIVE) mg/dL Urine Blood (NEGATIVE) Urine Nitrate (NEGATIVE) Urine Bilirubin (NEGATIVE) Urine Urobilinogen (<1 E.U./dL) E.U./dL Ur Leukocyte Esterase (NEGATIVE) Otis/uL Urine RBC (0-2) /hpf Urine WBC (0-6) /hpf Ur Epithelial Cells (0-5) /hpf Urine Bacteria (NONE) /hpf Coarse Granular Casts (NONE) /hpf /25/ Range/Units 12:20 WBC (4.5-11.0) 10^3/uL RBC (3.5-6.1) 10^6/uL Hgb (14.0-18.0) g/dL Hct (42.0-52.0) % MCV (80.0-105.0) fl MCH (25.0-35.0) pg MCHC (31.0-37.0) g/dl RDW (11.5-14.5) % Plt Count (120.0-450.0) 10^3/uL MPV (7.0-11.0) fl Neut % (Auto) (50.0-68.0) % Lymph % (Auto) (22.0-35.0) % Simpson % (Auto) (1.0-6.0) % Eos % (Auto) (1.5-5.0) % Baso % (Auto) (0.0-3.0) % Lymph # (Auto) (1.2-3.4) Simpson # (Auto) (0.1-0.6) Eos # (Auto) (0.0-0.7) Baso # (Auto) (0.0-2.0) K/mm3 Absolute Neuts (auto) (1.4-6.5) pCO2 (35-45) mm/Hg pO2 (80-100) mm/Hg HCO3 (21-28) mmol/L ABG pH (7.35-7.45) ABG Total CO2 (22-28) mmol.L ABG O2 Saturation (95-98) % ABG Base Excess (-2.0-3.0) mmol/L ABG Potassium (3.6-5.2) mmol/L Sodium (132-148) mmol/L Chloride (98-107) mmol/L Glucose (75-110) mg/dl Lactate (0.7-2.1) mmol/L FiO2 % Potassium (3.6-5.0) mmol/L Carbon Dioxide (21-33) mmol/L Anion Gap (10-20) BUN (7-21) mg/dL Creatinine (0.8-1.5) mg/dl Est GFR ( Amer) Est GFR (Non-Af Amer) POC Glucose (mg/dL) (65-110) mg/dL Random Glucose (70-110) mg/dL Calcium (8.4-10.5) mg/dL Phosphorus (2.5-4.5) mg/dL Magnesium (1.7-2.2) mg/dL Total Bilirubin (0.2-1.3) mg/dL AST (17-59) U/L ALT (7-56) U/L Alkaline Phosphatase (38-126) U/L Total Protein (5.8-8.3) g/dL Albumin (3.0-4.8) g/dL Globulin gm/dL Albumin/Globulin Ratio (1.1-1.8) Arterial Blood Potassium (3.6-5.2) mmol/L Urine Color Yellow (YELLOW) Urine Appearance Clear (CLEAR) Urine pH 6.0 (4.7-8.0) Ur Specific [place] 1.025 (1.005-1.035) Urine Protein Negative (<30 mg/dL) mg/dL Urine Glucose (UA) Negative (NEGATIVE) mg/dL Urine Ketones Negative (NEGATIVE) mg/dL Urine Blood Trace-intact H (NEGATIVE) Urine Nitrate Negative (NEGATIVE) Urine Bilirubin Negative (NEGATIVE) Urine Urobilinogen 1.0 H (<1 E.U./dL) E.U./dL Ur Leukocyte Esterase Negative (NEGATIVE) Otis/uL Urine RBC 2 - 5 H (0-2) /hpf Urine WBC 0 - 2 (0-6) /hpf Ur Epithelial Cells 0 - 2 (0-5) /hpf Urine Bacteria Many (NONE) /hpf Coarse Granular Casts Trace (NONE) /hpf Laboratory Results - last 24 hr 07/06/18 07/06/18 07/06/18 12:20 16:37 21:59 WBC RBC Hgb Hct MCV MCH MCHC RDW Plt Count MPV Neut % (Auto) Lymph % (Auto) Simpson % (Auto) Eos % (Auto) Baso % (Auto) Lymph # (Auto) Simpson # (Auto) Eos # (Auto) Baso # (Auto) Absolute Neuts (auto) pCO2 pO2 HCO3 ABG pH ABG Total CO2 ABG O2 Saturation ABG Base Excess ABG Potassium Sodium Chloride Glucose Lactate FiO2 Potassium Carbon Dioxide Anion Gap BUN Creatinine Est GFR ( Amer) Est GFR (Non-Af Amer) POC Glucose (mg/dL) 155 H 100 Random Glucose Calcium Phosphorus Magnesium Total Bilirubin AST ALT Alkaline Phosphatase Total Protein Albumin Globulin Albumin/Globulin Ratio Arterial Blood Potassium Urine Color Yellow Urine Appearance Clear Urine pH 6.0 Ur Specific [place] 1.025 Urine Protein Negative Urine Glucose (UA) Negative Urine Ketones Negative Urine Blood Trace-intact H Urine Nitrate Negative Urine Bilirubin Negative Urine Urobilinogen 1.0 H Ur Leukocyte Esterase Negative Urine RBC 2 - 5 H Urine WBC 0 - 2 Ur Epithelial Cells 0 - 2 Urine Bacteria Many Coarse Granular Casts Trace 07/07/18 07/07/18 07/07/18 05:20 05:50 05:50 WBC 10.9 RBC 3.74 Hgb 11.4 L Hct 35.1 L MCV 93.9 MCH 30.5 MCHC 32.5 RDW 14.3 Plt Count 216 MPV 9.6 Neut % (Auto) 77.0 H Lymph % (Auto) 14.0 L Simpson % (Auto) 5.7 Eos % (Auto) 3.0 Baso % (Auto) 0.3 Lymph # (Auto) 1.5 Simpson # (Auto) 0.6 Eos # (Auto) 0.3 Baso # (Auto) 0.03 Absolute Neuts (auto) 8.36 H pCO2 40 pO2 106.0 H HCO3 29.1 H ABG pH 7.47 H ABG Total CO2 30.3 H ABG O2 Saturation 99.1 H ABG Base Excess 5.0 H ABG Potassium 3.5 L Sodium 140.0 138 Chloride 107.0 105 Glucose 112 H Lactate 0.7 FiO2 60.0 Potassium 3.5 L Carbon Dioxide 30 Anion Gap 7 L BUN 14 Creatinine 0.8 Est GFR ( Amer) > 60 Est GFR (Non-Af Amer) > 60 POC Glucose (mg/dL) Random Glucose 122 H Calcium 8.1 L Phosphorus 3.5 Magnesium 2.2 Total Bilirubin 0.4 AST 68 H D ALT 76 H Alkaline Phosphatase 48 Total Protein 6.0 Albumin 3.1 Globulin 2.9 Albumin/Globulin Ratio 1.1 Arterial Blood Potassium 3.5 L Urine Color Urine Appearance Urine pH Ur Specific [place] Urine Protein Urine Glucose (UA) Urine Ketones Urine Blood Urine Nitrate Urine Bilirubin Urine Urobilinogen Ur Leukocyte Esterase Urine RBC Urine WBC Ur Epithelial Cells Urine Bacteria Coarse Granular Casts 07/07/18 07:17 WBC RBC Hgb Hct MCV MCH MCHC RDW Plt Count MPV Neut % (Auto) Lymph % (Auto) Simpson % (Auto) Eos % (Auto) Baso % (Auto) Lymph # (Auto) Simpson # (Auto) Eos # (Auto) Baso # (Auto) Absolute Neuts (auto) pCO2 pO2 HCO3 ABG pH ABG Total CO2 ABG O2 Saturation ABG Base Excess ABG Potassium Sodium Chloride Glucose Lactate FiO2 Potassium Carbon Dioxide Anion Gap BUN Creatinine Est GFR ( Amer) Est GFR (Non-Af Amer) POC Glucose (mg/dL) 124 H Random Glucose Calcium Phosphorus Magnesium Total Bilirubin AST ALT Alkaline Phosphatase Total Protein Albumin Globulin Albumin/Globulin Ratio Arterial Blood Potassium Urine Color Urine Appearance Urine pH Ur Specific [place] Urine Protein Urine Glucose (UA) Urine Ketones Urine Blood Urine Nitrate Urine Bilirubin Urine Urobilinogen Ur Leukocyte Esterase Urine RBC Urine WBC Ur Epithelial Cells Urine Bacteria Coarse Granular Casts Radiology Impressions: Radiology Impressions Chest X-Ray 07/07/18 07:52 IMPRESSION: The endotracheal tube and nasogastric tubes are in satisfactory position Assessment/Plan - Assessment and Plan (Free Text) Plan: Patient seen and examined on rounds with resident, agree with note with following additions/exceptions: Patient is 53yo male with PMhx of obesity, polysubstance abuse, EtOH abuse, HTN, smoker, a/w s/p Vfib cardiac arrest, s/p PCI with RCA stent with IABP IABP subsequently discontinued Pt not initiated on hypothermic protocol upon admission to MICU due to active bleeding from stomach, mouth, and epistaxis Currently afebrile, HD stable, comfortable in NAD VEEG obtained, results CTH noted, diffusze anoxic brain injury Patient has cough, gag reflex, minimally arousable to painful stimuli Labs, imaging, chart reviewed HH has been stable Cardiology following Neurology consulted Syncope HTN VFIB arrest s/p ROSC s/p PCI CAD anoxic brain injury Resp failure Recommend: - cont with vent support, low tidal vol ventilation, duonebs PRN, daily sedation vacation, CPAP trials, ABG, CXR - Nicotine Patch 21mcg - borad spectrum abx, although cultures thus far negative, suspect central fever - ASA, Statin, Prasugrel - Neuro follow up - follow up cardio - FS control - GI ppx - DVT ppx, HSQ - Monitor in MICU Family requesting transfer to [facility] in [place], [place], will attempt to get in contact with case management there Poor prognosis Will need trach and PEG, LTACH Critical care time 30 minutes
--- NOTE | 2018-07-07 13:06 | CARD ---
APPROVED REPORT Date of service: 07/02/2018 EXAM: Two-dimensional and M-mode echocardiogram with Doppler and color Doppler. INDICATION S/P CARDIAC ARREST 2D DIMENSIONS Left Atrium (2D)3.6 (1.6-4.0cm)IVSd1.2 (0.7-1.1cm) LVDd4.9 (3.9-5.9cm)PWd1.4 (0.7-1.1cm) LVDs3.8 (2.5-4.0cm)FS (%) 23.5 % LVEF (%)45.0 (>50%) M-Mode DIMENSIONS Aortic Root4.00 (2.2-3.7cm)Aortic Cusp Exc.2.00 (1.5-2.0cm) Aortic Valve AoV Peak Mxyuljqu811.0cm/Chaz Peak GR.13mmHg Mitral Valve MV E Tvysjwlv44.5cm/sMV A Dlihxcdu781.0cm/sE/A ratio0.7 TDI Lateral E' Peak V9.26cm/sMedial E' Peak V5.65cm/sE/Lateral E'8.4 E/Medial E'13.7 Pulmonary Valve PV Peak Eypdlplf532.0cm/sPV Peak Grad.4mmHg Tricuspid Valve TR Peak Nlbklvpx921rp/sRAP [id number] Peak Gr.27mmHg [id number] LEFT VENTRICLE There is mild concentric left ventricular hypertrophy. The systolic function is mildly impaired. ATRIA The left atrium size is normal. The right atrium size is normal. MITRAL VALVE The mitral valve is thickened but opens well. TRICUSPID VALVE The tricuspid valve leaflets are thickened , but open well. There is mild tricuspid regurgitation. There is mild pulmonary hypertension. PULMONIC VALVE The pulmonic valve is not well visualized. PERICARDIAL EFFUSION There is no pericardial effusion. <Conclusion> LVH with mild LV hypokinesis Mild TR Mild pulmonary hypertension
[2018-07-07 14:10] LABS: PH,URINE 7.5 (4.7-8.0); URINE BILIRUBIN NEGATIVE (NEGATIVE); URINE BLOOD MODERATE (NEGATIVE); URINE GLUCOSE (UA) NEGATIVE (NEGATIVE); URINE LEUKOCYTE ESTERASE NEGATIVE Leu/uL (NEGATIVE); URINE PROTEIN NEGATIVE mg/dL (<30 mg/dL)
[2018-07-07 14:19] LABS: URINE APPEARANCE CLEAR (CLEAR); URINE COLOR YELLOW (YELLOW)
[2018-07-07 14:23] LABS: URINE BACTERIA FEW /hpf; URINE RBC 15 - 20 /hpf (0-2)
[2018-07-07] MEDS: Sodium Chloride 0.9% 1,000 ML IV SCH (14:35)
--- NOTE | 2018-07-07 14:40 | PN ---
DATE: 07/07/2018 SUBJECTIVE: I saw him in bed. He is on the ventilator. He has a lot of issues going on. He had respiratory failure, status post acute inferior wall MN, status post cardiogenic shock, anoxic cephalopathy, history of smoking, amphetamines, probable COPD. Prognosis is very guarded with him. PHYSICAL EXAMINATION: VITAL SIGNS: Temperature 99.5, 96 pulse, 144/79 blood pressure, 99% O2 sat. HEAD: Atraumatic, normocephalic. HEART: Regular rate. LUNGS: Decreased breath sounds but clear. ABDOMEN: Soft, obese. EXTREMITIES: No edema. MEDICATIONS: He is on Ativan, Diprivan, DuoNebs, Ecotrin, Effient, heparin, Lopressor, midazolam, Nicoderm patch, potassium replacement, Protonix, IV fluids, thiamine and Zosyn IV. LABORATORY DATA: He has a 138 sodium, potassium 3.5, potassium is replaced, BUN 14, creatinine 0.8, GFR is greater than 60, sugar 122, calcium 8.1, phosphorous 3.5, magnesium 2.2. Total bili is 0.4, AST is 68, ALT is 76, alk phos 48, total protein is 6. White count is 10.9, hemoglobin 11.4, hematocrit 35.1, platelets of 216. Many bacteria in the urine, Staph aureus in Gram stain of the trach aspirate. He is being seen by Cardiology, slide fasteners inspector, Infectious Disease, Neurology. I think, at this time, he might need to have a tracheostomy placed if we are not going to be able to wean him. He has been here 6 days. I asked for ENT to come and restart the conversation. Also, he might need to go to an LTAC if family does not want to stop any treatment, so maybe case management can talk to family for long-term care issues if they do not want to give up on treatment for him and we will check his labs tomorrow. Replace the potassium. Continue aggressive treatment and care at this time on Reuben Fung. Ministerio Wan DO
--- NOTE | 2018-07-07 15:48 | CP.PCM.PN ---
<Nic Bae - Last Filed: 07/07/18 15:42> Subjective - Date & Time of Evaluation Date of Evaluation: 07/07/18 Time of Evaluation: 07:20 - Subjective Subjective: Nic Bae D.O. PGY-3, Internal Medicine Resident, Infectious Disease Progress Note 53-year-old male with a past medical history alcohol abuse, obesity, hypertension, and tobacco abuse who presented to [facility] for complaints of a syncopal episode. Patient was found to have an elevated troponin but refused a cardiac catheterization. Patient suffered cardiac arrest while in ultrasound, V. fib, and was subsequently taken to the [facility] with stenting of the RCA and placement of intra-aortic balloon pump. Infectious disease was consulted for sepsis. Patient was seen and examined at bedside. Continues to be intubated. No acute overnight events. Objective - Vital Signs/Intake and Output Vital Signs (last 24 hours): Temp Pulse Resp BP Pulse Ox 99.5 F 75 18 138/99 H 100 07/07/18 04:00 07/07/18 11:01 07/07/18 07:13 07/07/18 11:01 07/07/18 11:01 Intake and Output: 07/07/18 07/07/18 06:59 18:59 Intake Total 4609 225 Output Total 3050 Balance 1559 225 - Medications Medications: Current Medications Albuterol/Ipratropium (Duoneb 3 Mg/0.5 Mg (3 Ml) Ud) 3 ml IH Q2H PRN PRN Reason: Shortness of Breath Last Admin: 07/04/18 08:16 Dose: 3 ml Albuterol/Ipratropium (Duoneb 3 Mg/0.5 Mg (3 Ml) Ud) 3 ml IH [id number] ALIN Last Admin: 07/07/18 13:13 Dose: 3 ml Aspirin (Ecotrin) 81 mg PO DAILY ALIN Last Admin: 07/07/18 09:13 Dose: 81 mg Heparin Sodium (Porcine) (Heparin) 5,000 units SC Q8 ALIN; Protocol Last Admin: 07/07/18 14:39 Dose: 5,000 units Piperacillin Sod/Tazobactam Sod (Zosyn 3.375 In Ns 100ml) 100 mls @ 25 mls/hr IVPB Q8 ALIN; Protocol Stop: 07/11/18 14:01 Last Admin: 07/07/18 05:10 Dose: 25 mls/hr Propofol (Diprivan) 1,000 mg in 100 mls @ 6.314 mls/hr IV .[id number] PRN; Protocol PRN Reason: TITRATE PER MD ORDER Last Admin: 07/07/18 12:51 Dose: 40 mcg/kg/min, 25.256 mls/hr Sodium Chloride (Sodium Chloride 0.9%) 1,000 mls @ 50 mls/hr IV .Q20H ALIN Last Admin: 07/07/18 14:35 Dose: 50 mls/hr Midazolam 100 mg/100ml in NS (Midazolam 100 Mg/100ml In Ns) 100 mg in 100 mls @ 2 mls/hr IV .Q24H PRN; Protocol PRN Reason: Sedation Last Titration: 07/07/18 10:00 Dose: 2 mg/hr, 2 mls/hr Lorazepam (Ativan) 2 mg IVP Q2H PRN; Protocol PRN Reason: Anxiety Last Admin: 07/06/18 07:54 Dose: 2 mg Metoprolol Tartrate (Lopressor) 25 mg PO BID [facility] Last Admin: 07/07/18 09:13 Dose: 25 mg Nicotine (Nicoderm Cq) 1 patch TD DAILY [facility] Last Admin: 07/07/18 09:12 Dose: 1 patch Pantoprazole Sodium (Protonix Inj) 40 mg IVP Q12 [facility] Last Admin: 07/07/18 09:12 Dose: 40 mg Prasugrel (Effient) 10 mg PO DAILY [facility] Last Admin: 07/07/18 09:12 Dose: 10 mg Thiamine HCl (Vitamin B1 Tab) 500 mg PO DAILY [facility] Stop: 07/10/18 10:01 Last Admin: 07/07/18 09:12 Dose: 500 mg - Labs Labs: 07/07/18 05:50 07/07/18 05:50 PT 11.3 SECONDS (9.4-12.5) 07/01/18 11:30 INR 1.02 07/01/18 11:30 APTT 30.1 Seconds (26.9-38.3) 07/02/18 11:15 - Constitutional Appears: No Acute Distress, intubated - Head Exam Head Exam: NORMOCEPHALIC - Eye Exam Eye Exam: absent: Scleral icterus - ENT Exam ENT Exam: Mucous Membranes Moist - Neck Exam Neck exam: Positive for: Normal Inspection - Respiratory Exam Respiratory Exam: Clear to Auscultation Bilateral. absent: Rales, Rhonchi, Wheezes - Cardiovascular Exam Cardiovascular Exam: RRR, +S1, +S2. absent: Gallop, Rubs - GI/Abdominal Exam GI & Abdominal Exam: Normal Bowel Sounds, Soft. absent: Distended, Tenderness - Extremities Exam Extremities exam: Negative for: calf tenderness, pedal edema - Neurological Exam Additional comments: intubated - Skin Skin Exam: Dry, Warm Assessment and Plan - Assessment and Plan (Free Text) Assessment: 53-year-old male with a past medical history alcohol abuse, obesity, hypertension, and tobacco abuse who presented to [facility] for complaints of a syncopal episode. Patient was found to have an elevated troponin but refused a cardiac catheterization. Patient suffered cardiac arrest while in ultrasound, V. fib, and was subsequently taken to the [facility] with stenting of the RCA and placement of intra-aortic balloon pump. Infectious disease was consulted for sepsis. Plan: Sepsis from aspiration pneumonia with MSSA Ventilator dependent respiratory failure Cardiac arrest CAD status post PCI Hypertension Tobacco abuse HIV negative Leukocytosis resolved Afebrile last 24 hrs Tracheal aspiration grew MSSA Continue Zosyn day 6 Poor prognosis We will follow with you Patient was seen and examined and case to be discussed with attending physician. Thank you for the pleasure of participating in the care of this interesting patient. <Colton Michelle - Last Filed: 07/07/18 18:06> Objective - Vital Signs/Intake and Output Vital Signs (last 24 hours): Temp Pulse Resp BP Pulse Ox 99.5 F 75 18 138/99 H 100 07/07/18 04:00 07/07/18 11:01 07/07/18 07:13 07/07/18 11:01 07/07/18 11:01 Intake and Output: 07/07/18 07/07/18 06:59 18:59 Intake Total 4609 225 Output Total 3050 Balance 1559 225 - Medications Medications: Current Medications Albuterol/Ipratropium (Duoneb 3 Mg/0.5 Mg (3 Ml) Ud) 3 ml IH Q2H PRN PRN Reason: Shortness of Breath Last Admin: 07/04/18 08:16 Dose: 3 ml Albuterol/Ipratropium (Duoneb 3 Mg/0.5 Mg (3 Ml) Ud) 3 ml IH [id number] [facility] Last Admin: 07/07/18 13:13 Dose: 3 ml Aspirin (Ecotrin) 81 mg PO DAILY [facility] Last Admin: 07/07/18 09:13 Dose: 81 mg Heparin Sodium (Porcine) (Heparin) 5,000 units SC Q8 [facility]; Protocol Last Admin: 07/07/18 14:39 Dose: 5,000 units Piperacillin Sod/Tazobactam Sod (Zosyn 3.375 In Ns 100ml) 100 mls @ 25 mls/hr IVPB Q8 [facility]; Protocol Stop: 07/11/18 14:01 Last Admin: 07/07/18 05:10 Dose: 25 mls/hr Propofol (Diprivan) 1,000 mg in 100 mls @ 6.314 mls/hr IV .[id number] PRN; Protocol PRN Reason: TITRATE PER MD ORDER Last Admin: 07/07/18 12:51 Dose: 40 mcg/kg/min, 25.256 mls/hr Sodium Chloride (Sodium Chloride 0.9%) 1,000 mls @ 50 mls/hr IV .Q20H [facility] Last Admin: 07/07/18 14:35 Dose: 50 mls/hr Midazolam 100 mg/100ml in NS (Midazolam 100 Mg/100ml In Ns) 100 mg in 100 mls @ 2 mls/hr IV .Q24H PRN; Protocol PRN Reason: Sedation Last Titration: 07/07/18 10:00 Dose: 2 mg/hr, 2 mls/hr Lorazepam (Ativan) 2 mg IVP Q2H PRN; Protocol PRN Reason: Anxiety Last Admin: 07/06/18 07:54 Dose: 2 mg Metoprolol Tartrate (Lopressor) 25 mg PO BID [facility] Last Admin: 07/07/18 09:13 Dose: 25 mg Nicotine (Nicoderm Cq) 1 patch TD DAILY [facility] Last Admin: 07/07/18 09:12 Dose: 1 patch Pantoprazole Sodium (Protonix Inj) 40 mg IVP Q12 [facility] Last Admin: 07/07/18 09:12 Dose: 40 mg Prasugrel (Effient) 10 mg PO DAILY [facility] Last Admin: 07/07/18 09:12 Dose: 10 mg Thiamine HCl (Vitamin B1 Tab) 500 mg PO DAILY [facility] Stop: 07/10/18 10:01 Last Admin: 07/07/18 09:12 Dose: 500 mg - Labs Labs: 07/07/18 05:50 07/07/18 05:50 PT 11.3 SECONDS (9.4-12.5) 07/01/18 11:30 INR 1.02 07/01/18 11:30 APTT 30.1 Seconds (26.9-38.3) 07/02/18 11:15 Attending/Attestation - Attestation I have personally seen and examined this patient.: Yes I have fully participated in the care of the patient.: Yes I have reviewed all pertinent clinical information, including history, physical exam and plan: Yes
--- NOTE | 2018-07-07 16:16 | PN ---
DATE: 07/07/2018 CARDIOLOGY FOLLOWUP SUBJECTIVE: The patient remains ventilator dependent, currently sedated. PHYSICAL EXAMINATION VITAL SIGNS: Blood pressure 138/99 and heart rates in the 70s. NECK: Negative JVD. LUNGS: Without rales. HEART: Reveals S1 and S2. EXTREMITIES: Without edema. LABORATORY DATA: Hemoglobin is 11.4. Chemistries, BUN and creatinine unremarkable. IMPRESSION: 1. Respiratory failure. 2. Status post cardiogenic shock. 3. Status post acute inferior wall myocardial infarction with right ventricular infarct. 4. Anoxic encephalopathy. 5. Status post emergency percutaneous transluminal coronary angioplasty and stent of an right coronary artery. Given these findings, the patient is hemodynamically stable. Awaiting for continued evaluation of his neurologic status. We will continue his aspirin and Effient for now. Devonte Patel MD
--- NOTE | 2018-07-07 20:06 | PN ---
DATE: 07/07/2018 NEUROLOGY FOLLOWUP CHIEF COMPLAINT: Followup for altered mental status. SUBJECTIVE: The patient is seen and examined at bedside off sedation. Spontaneous movements of all extremities are noted as well as decerebrate posturing. Sedation has been increased by the nurse due to agitated movements. Last CAT scan of the head showed diffuse cerebral edema consistent with diffuse hypoxic brain injury. Brain senses are currently intact with sluggish pupils. PAST MEDICAL HISTORY: History of obesity, polysubstance abuse, EtOH abuse, hypertension, smoker. ALLERGIES: NO KNOWN DRUG ALLERGIES. SOCIAL HISTORY: History of polysubstance abuse and EtOH abuse. FAMILY HISTORY: Noncontributory. REVIEW OF SYSTEMS: A 14-point review of systems was not assessed due to the patient's underlying mental status. MEDICATIONS: Reviewed by nurse's reconciliation sheet. PHYSICAL EXAMINATION VITAL SIGNS: Temperature afebrile 99.5, pulse rate is 75, blood pressure 138/99, respiratory rate , oxygen saturation via mechanical ventilation. HEENT: Atraumatic, normocephalic. Pupils sluggish, but reactive to light bilaterally. Doll's eyes present. NECK: Supple. No JVD. No adenopathy noted. LUNGS: Decreased breath sounds bilaterally. HEART: S1 and S2. Regular rate and rhythm. No murmurs, rubs, or gallops. ABDOMEN: Soft, nontender, nondistended. Bowel sounds present. EXTREMITIES: No clubbing, no cyanosis. 1+ trace pedal edema. NEUROLOGIC: The patient is intubated on sedation, but when taken off sedation has spontaneous movement of lower extremities. Speech is difficult to assess at this time. Cranial nerves II through XII are intact, but sluggish pupils in terms of reaction to light. Corneas are present. Motor examination; normal tone both upper and lower extremities. Occasional spontaneous movements of the extremities are noted. Sensory exam; withdraws to localized noxious stimulus when on sedation. Toes are upgoing bilaterally. DTRs are 2+ throughout. Coordination and gait deferred for now. LABORATORY DATA: Sodium is 138, potassium 3.5, chloride 105, carbon dioxide 30, BUN of 14, creatinine 0.8, random glucose of 122. IMPRESSION: This is a 53-year-old man with past medical history of obesity, polysubstance abuse, EtOH abuse, hypertension, smoker, came with syncope status post ventricular fibrillation cardiac arrest, status post percutaneous coronary intervention with right coronary artery stent. Currently, initial CAT scan showed diffuse cerebral edema consistent with hypoxic brain injury. An EEG shows diffuse slowing because of severe bilateral cerebral dysfunction, but no evidence of epileptiform activity. At this rate, his overall assessment is more of a diffuse hypoxic ischemic brain injury from underlying ventricular fibrillation arrest. RECOMMENDATIONS: We would recommend; 1. Supportive care and recommend long-term care facility placement with tracheostomy and PEG to provide nutrition to the brain. 2. IV thiamine 300 mg IV daily for neurocognitive activation. 3. Reduce the amount of sedative medications. 4. Continue to keep his blood pressure between 130s to 140s systolic and diastolic 70s to 80s. 5. Achieve euglycemia. 6. Continue with current and present medical ICU management. Prognosis is guarded. Tyson King MD
[2018-07-07] MEDS: Midazolam 100 mg/100ml in NS 100 MG/100 ML SOL IV PRN (23:03)
--- NOTE | 2018-07-07 23:44 | CON ---
DATE: 07/07/2018 LOCATION: CCU bed #6. HISTORY OF PRESENT ILLNESS: This 53-year-old male who has had cardiac arrest, has been vent dependent, and tracheostomy tube dependent over the last period since immediate admission into the ER. The patient went into atrial fibrillation and had a hypoxic event. The patient has been attempted to be extubated and has failed extubation and will continue to be vent dependent after 1 week to 10 days. RECOMMENDATIONS: As discussed with family member, Jolly, phone number [phone]. Verbal consent was given to schedule in the operating room. tracheostomy to remove the endotracheal tube from the mouth is expected after multiple failures of extubation and pulmonary testing that the patient will have to continue on long-term vent. This has been discussed with the patient and two different nurses who have signed the consent and we will proceed with scheduling the operative procedure over the next 24 to 48 hours. The patient has eaten today. To proceed with scheduling and ultimately the tracheostomy, which the family has been well detailed and has agreed to proceed. Jaden Moore DO cc: Ministerio Wan DO MTDD
[2018-07-08] MEDS: Albuterol-Ipratrop 3 mg / 0.5 (3 ml) UD IH SCH ×4 (01:15→20:15)
[2018-07-08] MEDS: Propofol 10 mg/ml 1,000 MG/100 ML VIAL IV PRN ×7 (03:09→23:56)
[2018-07-08] MEDS: Sodium Chloride 0.9% 1,000 ML IV SCH (05:57)
[2018-07-08] MEDS: Piperacillin/Tazobact 3.375 gm 100 ML IVPB SCH ×3 (05:57→21:48)
[2018-07-08 06:26] LABS: BASO # 0.05 K/mm3 (0.0-2.0); BASO % 0.5 % (0.0-3.0); EOS # 0.4 (0.0-0.7); EOS % 3.4 % (1.5-5.0); HEMOGLOBIN 12.2 g/dL (14.0-18.0); LYMPH # 1.7 (1.2-3.4); LYMPH % 16.7 % (22.0-35.0); MEAN CELL VOLUME 95.3 fl (80.0-105.0); MEAN CORPUSCULAR HEMOGLOBIN 30.5 pg (25.0-35.0); MEAN PLATELET VOLUME 9.8 fl (7.0-11.0); MONO # 0.6 (0.1-0.6); RED CELL DISTRIBUTION WIDTH 14.7 % (11.5-14.5); WHITE BLOOD COUNT 10.2 10^3/uL (4.5-11.0)
[2018-07-08 07:08] LABS: ALBUMIN 3.2 g/dL (3.0-4.8); ALT/SGPT 142 U/L (7-56); AST/SGOT 131 U/L (17-59); BLOOD UREA NITROGEN 18 mg/dL (7-21); CALCIUM 8.4 mg/dL (8.4-10.5); GFR NON-AFRICAN AMERICAN > 60
--- NOTE | 2018-07-08 07:45 | CP.CCUPN ---
<Jaime Cardenas - Last Filed: 07/08/18 13:24> CCU Subjective - Physician Review Subjective (Free Text): Jaime Cardenas DO. Critical Care Progress note Patient seen and examined at bedside, intubated/sedated on propofol 50 mcg, versed drip. Afebrile with no significant overnight events. CCU Objective - Vital Signs / Intake & Output Vital Signs (Last 4 hours): Vital Signs Temp Pulse 07/08/18 06:00 71 07/08/18 04:00 98.3 F Intake and Output (Last 8hrs): Intake & Output 07/07/18 07/08/18 07/08/18 22:59 06:59 14:59 Intake Total 2145 330 Output Total 2100 700 Balance 45 -370 Weight 235 lb Intake: IV 1445 330 Right Antecubital 600 Right Forearm 600 Oral 0 Tube Feeding 700 Output: Urine 2100 700 Urethral (Orosco) 2100 700 Other: # Bowel Movements 0 - Physical Exam Head: Positive for: Atraumatic, Normocephalic Pupils: Positive for: Sluggish Extroacular Muscles: Positive for: EOMI Conjunctiva: Positive for: Normal Mouth: Positive for: Moist Mucous Membranes Nose (Internal): Positive for: Other (dried blood nticed, packing applied) Neck: Positive for: Normal Range of Motion. Negative for: JVD, Lymphadenopathy Respiratory/Chest: Positive for: Decreased Breath Sounds. Negative for: Wheezes, Rhonchi Cardiovascular: Positive for: Regular Rate and Rhythm, Normal S1, S2. Negative for: Murmurs, Rub, Gallop Abdomen: Negative for: Tenderness, Distention, Peritoneal Signs, Mass/Organomegaly Back: Positive for: Normal Inspection Upper Extremity: Positive for: Normal Inspection, NORMAL PULSES. Negative for: Cyanosis, Edema Lower Extremity: Positive for: Normal Inspection, NORMAL PULSES. Negative for: Edema, Cyanosis, Swelling, Erythema Neurological: Positive for: Other (moves all extremities. sedated) Skin: Positive for: Warm, Dry, Normal Color. Negative for: Rashes Psychiatric: Positive for: Other (intubated) - Medications Active Medications: Active Medications Generic Name Dose Route Start Last Admin Trade Name Freq PRN Reason Stop Dose Admin Albuterol/Ipratropium 3 ml 07/01/18 17:28 07/04/18 08:16 Duoneb 3 Mg/0.5 Mg (3 Ml) Ud IH 3 ml Q2H PRN Administration Shortness of Breath Albuterol/Ipratropium 3 ml 07/04/18 14:00 07/08/18 07:22 Duoneb 3 Mg/0.5 Mg (3 Ml) Ud IH 3 ml [id number] XU Administration Aspirin 81 mg 07/02/18 10:30 07/07/18 09:13 Ecotrin PO 81 mg DAILY XU Administration Heparin Sodium (Porcine) 5,000 units 07/03/18 14:00 07/08/18 05:58 Heparin SC 5,000 units Q8 XU Administration Protocol Piperacillin Sod/Tazobactam Sod 100 mls @ 25 mls/hr 07/03/18 14:00 07/08/18 05:57 Zosyn 3.375 In Ns 100ml IVPB 07/11/18 14:01 25 mls/hr Q8 XU Administration Protocol Propofol 1,000 mg in 100 mls @ 6.314 mls/hr 07/04/18 18:28 07/08/18 06:09 Diprivan IV 50 mcg/kg/min .[id number] PRN 31.57 mls/hr TITRATE PER MD ORDER Administration Protocol 10 MCG/KG/MIN Sodium Chloride 1,000 mls @ 50 mls/hr 07/05/18 17:07 07/08/18 05:57 Sodium Chloride 0.9% IV 50 mls/hr .Q20H XU Administration Midazolam 100 mg/100ml in NS 100 mg in 100 mls @ 2 mls/hr 07/06/18 07:50 07/07/18 23:03 Midazolam 100 Mg/100ml In Ns IV 5 mg/hr .Q24H PRN 5 mls/hr Sedation Administration Protocol 2 MG/HR Lorazepam 2 mg 07/01/18 14:13 07/07/18 23:47 Ativan IVP 2 mg Q2H PRN Administration Anxiety Protocol Metoprolol Tartrate 25 mg 07/03/18 12:00 07/07/18 18:21 Lopressor PO 25 mg BID XU Administration Nicotine 1 patch 07/02/18 10:00 07/07/18 09:12 Nicoderm Cq TD 1 patch DAILY XU Administration Pantoprazole Sodium 40 mg 07/01/18 22:00 07/07/18 23:05 Protonix Inj IVP 40 mg Q12 XU Administration Prasugrel 10 mg 07/04/18 10:00 07/07/18 09:12 Effient PO 10 mg DAILY XU Administration Thiamine HCl 500 mg 07/08/18 10:00 Vitamin B1 Tab PO 07/12/18 10:01 DAILY XU - Patient Studies Lab Studies: Microbiology Studies 07/02/18 12:55 Blood Culture - Final Blood NO GROWTH AFTER 5 DAYS Gram Stain - Final TEST NOT PERFORMED Lab Studies 07/08/18 07/08/18 07/07/18 Range/Units 05:30 05:30 16:03 WBC 10.2 (4.5-11.0) 10^3/uL RBC 4.00 (3.5-6.1) 10^6/uL Hgb 12.2 L (14.0-18.0) g/dL Hct 38.1 L (42.0-52.0) % MCV 95.3 (80.0-105.0) fl MCH 30.5 (25.0-35.0) pg MCHC 32.0 (31.0-37.0) g/dl RDW 14.7 H (11.5-14.5) % Plt Count 232 (120.0-450.0) 10^3/uL MPV 9.8 (7.0-11.0) fl Neut % (Auto) 73.4 H (50.0-68.0) % Lymph % (Auto) 16.7 L (22.0-35.0) % Meade % (Auto) 6.0 (1.0-6.0) % Eos % (Auto) 3.4 (1.5-5.0) % Baso % (Auto) 0.5 (0.0-3.0) % Lymph # (Auto) 1.7 (1.2-3.4) Meade # (Auto) 0.6 (0.1-0.6) Eos # (Auto) 0.4 (0.0-0.7) Baso # (Auto) 0.05 (0.0-2.0) K/mm3 Absolute Neuts (auto) 7.46 H (1.4-6.5) Sodium 140 (132-148) mmol/L Potassium 4.5 (3.6-5.0) mmol/L Chloride 104 (98-107) mmol/L Carbon Dioxide 31 (21-33) mmol/L Anion Gap 10 (10-20) BUN 18 (7-21) mg/dL Creatinine 0.8 (0.8-1.5) mg/dl Est GFR ( Amer) > 60 Est GFR (Non-Af Amer) > 60 POC Glucose (mg/dL) 93 (65-110) mg/dL Random Glucose 98 (70-110) mg/dL Calcium 8.4 (8.4-10.5) mg/dL Phosphorus 4.4 (2.5-4.5) mg/dL Magnesium 2.5 H (1.7-2.2) mg/dL Total Bilirubin 0.6 (0.2-1.3) mg/dL AST 131 H D (17-59) U/L ALT 142 H (7-56) U/L Alkaline Phosphatase 51 (38-126) U/L Total Protein 6.5 (5.8-8.3) g/dL Albumin 3.2 (3.0-4.8) g/dL Globulin 3.3 gm/dL Albumin/Globulin Ratio 1.0 L (1.1-1.8) Urine Color (YELLOW) Urine Appearance (CLEAR) Urine pH (4.7-8.0) Ur Specific Adrian (1.005-1.035) Urine Protein (<30 mg/dL) mg/dL Urine Glucose (UA) (NEGATIVE) mg/dL Urine Ketones (NEGATIVE) mg/dL Urine Blood (NEGATIVE) Urine Nitrate (NEGATIVE) Urine Bilirubin (NEGATIVE) Urine Urobilinogen (<1 E.U./dL) E.U./dL Ur Leukocyte Esterase (NEGATIVE) Otis/uL Urine RBC (0-2) /hpf Urine WBC (0-6) /hpf Ur Epithelial Cells (0-5) /hpf Urine Bacteria (NONE) /hpf 07/07/18 07/07/18 Range/Units 14:00 11:09 WBC (4.5-11.0) 10^3/uL RBC (3.5-6.1) 10^6/uL Hgb (14.0-18.0) g/dL Hct (42.0-52.0) % MCV (80.0-105.0) fl MCH (25.0-35.0) pg MCHC (31.0-37.0) g/dl RDW (11.5-14.5) % Plt Count (120.0-450.0) 10^3/uL MPV (7.0-11.0) fl Neut % (Auto) (50.0-68.0) % Lymph % (Auto) (22.0-35.0) % Meade % (Auto) (1.0-6.0) % Eos % (Auto) (1.5-5.0) % Baso % (Auto) (0.0-3.0) % Lymph # (Auto) (1.2-3.4) Meade # (Auto) (0.1-0.6) Eos # (Auto) (0.0-0.7) Baso # (Auto) (0.0-2.0) K/mm3 Absolute Neuts (auto) (1.4-6.5) Sodium (132-148) mmol/L Potassium (3.6-5.0) mmol/L Chloride (98-107) mmol/L Carbon Dioxide (21-33) mmol/L Anion Gap (10-20) BUN (7-21) mg/dL Creatinine (0.8-1.5) mg/dl Est GFR ( Amer) Est GFR (Non-Af Amer) POC Glucose (mg/dL) 129 H (65-110) mg/dL Random Glucose (70-110) mg/dL Calcium (8.4-10.5) mg/dL Phosphorus (2.5-4.5) mg/dL Magnesium (1.7-2.2) mg/dL Total Bilirubin (0.2-1.3) mg/dL AST (17-59) U/L ALT (7-56) U/L Alkaline Phosphatase (38-126) U/L Total Protein (5.8-8.3) g/dL Albumin (3.0-4.8) g/dL Globulin gm/dL Albumin/Globulin Ratio (1.1-1.8) Urine Color Yellow (YELLOW) Urine Appearance Clear (CLEAR) Urine pH 7.5 (4.7-8.0) Ur Specific Adrian <= 1.005 (1.005-1.035) Urine Protein Negative (<30 mg/dL) mg/dL Urine Glucose (UA) Negative (NEGATIVE) mg/dL Urine Ketones Negative (NEGATIVE) mg/dL Urine Blood Moderate H (NEGATIVE) Urine Nitrate Negative (NEGATIVE) Urine Bilirubin Negative (NEGATIVE) Urine Urobilinogen 1.0 H (<1 E.U./dL) E.U./dL Ur Leukocyte Esterase Negative (NEGATIVE) Otis/uL Urine RBC 15 - 20 H (0-2) /hpf Urine WBC 1 - 3 (0-6) /hpf Ur Epithelial Cells None (0-5) /hpf Urine Bacteria Few (NONE) /hpf Laboratory Results - last 24 hr 07/07/18 07/07/18 07/07/18 11:09 14:00 16:03 WBC RBC Hgb Hct MCV MCH MCHC RDW Plt Count MPV Neut % (Auto) Lymph % (Auto) Meade % (Auto) Eos % (Auto) Baso % (Auto) Lymph # (Auto) Meade # (Auto) Eos # (Auto) Baso # (Auto) Absolute Neuts (auto) Sodium Potassium Chloride Carbon Dioxide Anion Gap BUN Creatinine Est GFR ( Amer) Est GFR (Non-Af Amer) POC Glucose (mg/dL) 129 H 93 Random Glucose Calcium Phosphorus Magnesium Total Bilirubin AST ALT Alkaline Phosphatase Total Protein Albumin Globulin Albumin/Globulin Ratio Urine Color Yellow Urine Appearance Clear Urine pH 7.5 Ur Specific Adrian <= 1.005 Urine Protein Negative Urine Glucose (UA) Negative Urine Ketones Negative Urine Blood Moderate H Urine Nitrate Negative Urine Bilirubin Negative Urine Urobilinogen 1.0 H Ur Leukocyte Esterase Negative Urine RBC 15 - 20 H Urine WBC 1 - 3 Ur Epithelial Cells None Urine Bacteria Few 07/08/18 07/08/18 05:30 05:30 WBC 10.2 RBC 4.00 Hgb 12.2 L Hct 38.1 L MCV 95.3 MCH 30.5 MCHC 32.0 RDW 14.7 H Plt Count 232 MPV 9.8 Neut % (Auto) 73.4 H Lymph % (Auto) 16.7 L Meade % (Auto) 6.0 Eos % (Auto) 3.4 Baso % (Auto) 0.5 Lymph # (Auto) 1.7 Meade # (Auto) 0.6 Eos # (Auto) 0.4 Baso # (Auto) 0.05 Absolute Neuts (auto) 7.46 H Sodium 140 Potassium 4.5 Chloride 104 Carbon Dioxide 31 Anion Gap 10 BUN 18 Creatinine 0.8 Est GFR ( Amer) > 60 Est GFR (Non-Af Amer) > 60 POC Glucose (mg/dL) Random Glucose 98 Calcium 8.4 Phosphorus 4.4 Magnesium 2.5 H Total Bilirubin 0.6 AST 131 H D ALT 142 H Alkaline Phosphatase 51 Total Protein 6.5 Albumin 3.2 Globulin 3.3 Albumin/Globulin Ratio 1.0 L Urine Color Urine Appearance Urine pH Ur Specific Adrian Urine Protein Urine Glucose (UA) Urine Ketones Urine Blood Urine Nitrate Urine Bilirubin Urine Urobilinogen Ur Leukocyte Esterase Urine RBC Urine WBC Ur Epithelial Cells Urine Bacteria Radiology Impressions: Radiology Impressions Chest X-Ray 07/07/18 07:52 IMPRESSION: The endotracheal tube and nasogastric tubes are in satisfactory position Fingerstick Blood Sugar Results: 124 Review of Systems - Review of Systems Systems not reviewed;Unavailable: Altered Mental Status Critical Care Progress Note - Ventilator Checklist Head of Bed 30 Degrees: Yes Daily Sedation Vacation: Yes Daily Assessment of Readiness to Wean: Yes Daily Spontaneous Breathing Trial: Yes PUD Prophalyxis: Yes DVT Prophylaxis: Yes Oral Care with Chlorhexidine Gluconate {CHG}: Yes - Vent Settings MODE:: PRVC TIDAL VOLUME:: 450 RESP RATE:: 18 FIO2:: 50 PEEP:: 5 - Extremities/Vascular Does the Patient have a Orosco Catheter?: Yes Catheter Insertion Criteria: Need for accurate measurement of output in critically ill patient - Prophylaxis GI Prophylaxis GI: PPI - Prophylaxis DVT Prophylaxis DVT: Heparin SQ, SCDs Assessment/Plan - Assessment and Plan (Free Text) Assessment: 53 y/o male admitted to ICU s/p VFib cardiac arrest with subsequent PCI with RCA stent placed. He sustained cerebral cerebral injury with diffuse cerebral edema requiring intubation on PRVC. Sedated on propofol and versed Plan: Neuro: -anoxic brain injury in the setting of VFib cardiac arrest with subsequent multiple defibrillation then PCI and RCA ANALISA placement -Intubated/sedated on propofol 50 mcg and versed. not arousable, not responsive to verbal but responds to tactile stimuli -hypothermic protocol not initiated on admission to ICU due to epistaxis and hemoptysis at that time -CT head: no ICH. diffuce cerebral edema -Video EEG: no seizure activity. Severe slowing/attenuation -continue ativan prn -continue thiamine for neurocognitive activation as per neuro -neuro consulted, Dr King -heavy smoker. nicotine patch 21 mg/24 hr -maintain normothermia Cardio: -cardiac arrest due to VFib s/p PCI with RCA ANALISA -continue asa, lopressor -statins held due to elevated LFT -ACEI held after PCI due to SHABNAM/rhabdomyolisis -hold effient for tracheostomy today -maintain MAP>65 -maintain BP 130-140s/70-80s -Echo: LVEF 45% LVH with hypokinesis, mild pulm HTN -cardiology following Pulm: -continue PRVC 450/18/5/50 -vent weaning trial, mouth hygeine, DVT/GI ppx, head elevation 30 degree, sedation vacation -maintain O2>92% -COPD, chronic smoker, duonebs xu -tracheostomy today at pm with ENT Dr Moore GI: -transaminitis likely due to shock liver in the setting of cardiac arrest -LFT trending down -patient alcoholic, obese -U/S abdomen: fibro/fatty liver infiltration -as per GI note: continue NG feeding for one month then re-evaluate for possible PEG placement since this's a high risk procedure and not an emergency. Effient would need to be held upto 7 days before PEG could be placed. Renal: -rhabdomyolysis (improved) likely due to defibrillation with CPK trending down from 7571 to 4355 to 1077 -replete lytes as needed -UOP 4900 last 24 hours -hold IVF, rhabdo improved and patient is volume overloaded -maintain euvolemia, euglycemia -UDS positive for amphetamine, benzo ID: -patient has low grade fever, likely neurogenic -afebrile for 24 hr -tracheal aspiration positive for MSSA -blood cx negative to date -procal 0.86 -continue zosyn per ID -HIV, legionella, MRSA negative -ID consulted Heme: -H/H stable -continue monitoring Prophylaxis: GI ppx Protonix q12 DVT SCD, Heparin sq Continue ICU management Full code Family still working on transferring the patient to a hospital in [place], [place] where they all reside Case reviewed and plan discussed with attending physician Dr Janeth Kim <Satinder Kim - Last Filed: 07/08/18 16:24> CCU Objective - Vital Signs / Intake & Output Vital Signs (Last 4 hours): Vital Signs Pulse 07/08/18 14:00 75 Intake and Output (Last 8hrs): Intake & Output 07/08/18 07/08/18 07/08/18 06:59 14:59 22:59 Intake Total 330 200 Output Total 700 Balance -370 200 Weight 106.594 kg Intake: IV 330 200 Output: Urine 700 Urethral (Orosco) 700 - Medications Active Medications: Active Medications Generic Name Dose Route Start Last Admin Trade Name Freq PRN Reason Stop Dose Admin Albuterol/Ipratropium 3 ml 07/01/18 17:28 07/04/18 08:16 Duoneb 3 Mg/0.5 Mg (3 Ml) Ud IH 3 ml Q2H PRN Administration Shortness of Breath Albuterol/Ipratropium 3 ml 07/04/18 14:00 07/08/18 13:05 Duoneb 3 Mg/0.5 Mg (3 Ml) Ud IH 3 ml [id number] XU Administration Aspirin 81 mg 07/02/18 10:30 07/08/18 10:00 Ecotrin PO Not Given DAILY XU Heparin Sodium (Porcine) 5,000 units 07/03/18 14:00 07/08/18 14:17 Heparin SC Not Given Q8 XU Protocol Piperacillin Sod/Tazobactam Sod 100 mls @ 25 mls/hr 07/03/18 14:00 07/08/18 13:22 Zosyn 3.375 In Ns 100ml IVPB 07/11/18 14:01 25 mls/hr Q8 XU Administration Protocol Propofol 1,000 mg in 100 mls @ 6.314 mls/hr 07/04/18 18:28 07/08/18 13:00 Diprivan IV 50 mcg/kg/min .[id number] PRN 31.57 mls/hr TITRATE PER MD ORDER Administration Protocol 10 MCG/KG/MIN Midazolam 100 mg/100ml in NS 100 mg in 100 mls @ 2 mls/hr 07/06/18 07:50 07/07/18 23:03 Midazolam 100 Mg/100ml In Ns IV 5 mg/hr .Q24H PRN 5 mls/hr Sedation Administration Protocol 2 MG/HR Lorazepam 2 mg 07/01/18 14:13 07/07/18 23:47 Ativan IVP 2 mg Q2H PRN Administration Anxiety Protocol Metoprolol Tartrate 25 mg 07/03/18 12:00 07/08/18 09:15 Lopressor PO 25 mg BID XU Administration Nicotine 1 patch 07/02/18 10:00 07/08/18 09:16 Nicoderm Cq TD 1 patch DAILY XU Administration Pantoprazole Sodium 40 mg 07/01/18 22:00 07/08/18 09:16 Protonix Inj IVP 40 mg Q12 XU Administration Prasugrel 10 mg 07/04/18 10:00 07/08/18 10:00 Effient PO Not Given DAILY XU Thiamine HCl 500 mg 07/08/18 10:00 07/08/18 10:00 Vitamin B1 Tab PO 07/12/18 10:01 Not Given DAILY XU - Patient Studies Lab Studies: Microbiology Studies 07/02/18 12:55 Blood Culture - Final Blood NO GROWTH AFTER 5 DAYS Gram Stain - Final TEST NOT PERFORMED Lab Studies 07/08/18 07/08/18 07/08/18 Range/Units 13:08 11:10 11:10 WBC (4.5-11.0) 10^3/uL RBC (3.5-6.1) 10^6/uL Hgb (14.0-18.0) g/dL Hct (42.0-52.0) % MCV (80.0-105.0) fl MCH (25.0-35.0) pg MCHC (31.0-37.0) g/dl RDW (11.5-14.5) % Plt Count (120.0-450.0) 10^3/uL MPV (7.0-11.0) fl Neut % (Auto) (50.0-68.0) % Lymph % (Auto) (22.0-35.0) % Meade % (Auto) (1.0-6.0) % Eos % (Auto) (1.5-5.0) % Baso % (Auto) (0.0-3.0) % Lymph # (Auto) (1.2-3.4) Meade # (Auto) (0.1-0.6) Eos # (Auto) (0.0-0.7) Baso # (Auto) (0.0-2.0) K/mm3 Absolute Neuts (auto) (1.4-6.5) PT 12.7 H (9.4-12.5) SECONDS INR 1.12 APTT 27.6 (26.9-38.3) Seconds pCO2 (35-45) mm/Hg pO2 (80-100) mm/Hg HCO3 (21-28) mmol/L ABG pH (7.35-7.45) ABG Total CO2 (22-28) mmol.L ABG O2 Saturation (95-98) % ABG O2 Content (15-23) ML/dl ABG Base Excess (-2.0-3.0) mmol/L ABG Hemoglobin (11.7-17.4) g/dL ABG Carboxyhemoglobin (0.5-1.5) % POC ABG HHb (Measured) (0-5) % ABG Methemoglobin (0.0-3.0) % ABG O2 Capacity (16-24) mL/dl Hgb O2 Saturation (95.0-98.0) % FiO2 % Sodium (132-148) mmol/L Potassium (3.6-5.0) mmol/L Chloride (98-107) mmol/L Carbon Dioxide (21-33) mmol/L Anion Gap (10-20) BUN (7-21) mg/dL Creatinine (0.8-1.5) mg/dl Est GFR ( Amer) Est GFR (Non-Af Amer) POC Glucose (mg/dL) 114 H (65-110) mg/dL Random Glucose (70-110) mg/dL Calcium (8.4-10.5) mg/dL Phosphorus (2.5-4.5) mg/dL Magnesium (1.7-2.2) mg/dL Total Bilirubin (0.2-1.3) mg/dL AST (17-59) U/L ALT (7-56) U/L Alkaline Phosphatase (38-126) U/L Total Protein (5.8-8.3) g/dL Albumin (3.0-4.8) g/dL Globulin gm/dL Albumin/Globulin Ratio (1.1-1.8) 07/08/18 07/08/18 07/08/18 Range/Units 09:55 05:30 05:30 WBC 10.2 (4.5-11.0) 10^3/uL RBC 4.00 (3.5-6.1) 10^6/uL Hgb 12.2 L (14.0-18.0) g/dL Hct 38.1 L (42.0-52.0) % MCV 95.3 (80.0-105.0) fl MCH 30.5 (25.0-35.0) pg MCHC 32.0 (31.0-37.0) g/dl RDW 14.7 H (11.5-14.5) % Plt Count 232 (120.0-450.0) 10^3/uL MPV 9.8 (7.0-11.0) fl Neut % (Auto) 73.4 H (50.0-68.0) % Lymph % (Auto) 16.7 L (22.0-35.0) % Meade % (Auto) 6.0 (1.0-6.0) % Eos % (Auto) 3.4 (1.5-5.0) % Baso % (Auto) 0.5 (0.0-3.0) % Lymph # (Auto) 1.7 (1.2-3.4) Meade # (Auto) 0.6 (0.1-0.6) Eos # (Auto) 0.4 (0.0-0.7) Baso # (Auto) 0.05 (0.0-2.0) K/mm3 Absolute Neuts (auto) 7.46 H (1.4-6.5) PT (9.4-12.5) SECONDS INR APTT (26.9-38.3) Seconds pCO2 40 (35-45) mm/Hg pO2 91.0 (80-100) mm/Hg HCO3 27.2 (21-28) mmol/L ABG pH 7.44 (7.35-7.45) ABG Total CO2 28.4 H (22-28) mmol.L ABG O2 Saturation 98.8 H (95-98) % ABG O2 Content 14.9 L (15-23) ML/dl ABG Base Excess 2.8 (-2.0-3.0) mmol/L ABG Hemoglobin 11.0 L (11.7-17.4) g/dL ABG Carboxyhemoglobin 1.8 H (0.5-1.5) % POC ABG HHb (Measured) 1.2 (0-5) % ABG Methemoglobin 1.2 (0.0-3.0) % ABG O2 Capacity 15.1 L (16-24) mL/dl Hgb O2 Saturation 95.9 (95.0-98.0) % FiO2 50.0 % Sodium 140 (132-148) mmol/L Potassium 4.5 (3.6-5.0) mmol/L Chloride 104 (98-107) mmol/L Carbon Dioxide 31 (21-33) mmol/L Anion Gap 10 (10-20) BUN 18 (7-21) mg/dL Creatinine 0.8 (0.8-1.5) mg/dl Est GFR ( Amer) > 60 Est GFR (Non-Af Amer) > 60 POC Glucose (mg/dL) (65-110) mg/dL Random Glucose 98 (70-110) mg/dL Calcium 8.4 (8.4-10.5) mg/dL Phosphorus 4.4 (2.5-4.5) mg/dL Magnesium 2.5 H (1.7-2.2) mg/dL Total Bilirubin 0.6 (0.2-1.3) mg/dL AST 131 H D (17-59) U/L ALT 142 H (7-56) U/L Alkaline Phosphatase 51 (38-126) U/L Total Protein 6.5 (5.8-8.3) g/dL Albumin 3.2 (3.0-4.8) g/dL Globulin 3.3 gm/dL Albumin/Globulin Ratio 1.0 L (1.1-1.8) 03/26/19 Range/Units 16:03 WBC (4.5-11.0) 10^3/uL RBC (3.5-6.1) 10^6/uL Hgb (14.0-18.0) g/dL Hct (42.0-52.0) % MCV (80.0-105.0) fl MCH (25.0-35.0) pg MCHC (31.0-37.0) g/dl RDW (11.5-14.5) % Plt Count (120.0-450.0) 10^3/uL MPV (7.0-11.0) fl Neut % (Auto) (50.0-68.0) % Lymph % (Auto) (22.0-35.0) % Meade % (Auto) (1.0-6.0) % Eos % (Auto) (1.5-5.0) % Baso % (Auto) (0.0-3.0) % Lymph # (Auto) (1.2-3.4) Meade # (Auto) (0.1-0.6) Eos # (Auto) (0.0-0.7) Baso # (Auto) (0.0-2.0) K/mm3 Absolute Neuts (auto) (1.4-6.5) PT (9.4-12.5) SECONDS INR APTT (26.9-38.3) Seconds pCO2 (35-45) mm/Hg pO2 (80-100) mm/Hg HCO3 (21-28) mmol/L ABG pH (7.35-7.45) ABG Total CO2 (22-28) mmol.L ABG O2 Saturation (95-98) % ABG O2 Content (15-23) ML/dl ABG Base Excess (-2.0-3.0) mmol/L ABG Hemoglobin (11.7-17.4) g/dL ABG Carboxyhemoglobin (0.5-1.5) % POC ABG HHb (Measured) (0-5) % ABG Methemoglobin (0.0-3.0) % ABG O2 Capacity (16-24) mL/dl Hgb O2 Saturation (95.0-98.0) % FiO2 % Sodium (132-148) mmol/L Potassium (3.6-5.0) mmol/L Chloride (98-107) mmol/L Carbon Dioxide (21-33) mmol/L Anion Gap (10-20) BUN (7-21) mg/dL Creatinine (0.8-1.5) mg/dl Est GFR ( Amer) Est GFR (Non-Af Amer) POC Glucose (mg/dL) 93 (65-110) mg/dL Random Glucose (70-110) mg/dL Calcium (8.4-10.5) mg/dL Phosphorus (2.5-4.5) mg/dL Magnesium (1.7-2.2) mg/dL Total Bilirubin (0.2-1.3) mg/dL AST (17-59) U/L ALT (7-56) U/L Alkaline Phosphatase (38-126) U/L Total Protein (5.8-8.3) g/dL Albumin (3.0-4.8) g/dL Globulin gm/dL Albumin/Globulin Ratio (1.1-1.8) Laboratory Results - last 24 hr 07/07/18 07/08/18 07/08/18 16:03 05:30 05:30 WBC 10.2 RBC 4.00 Hgb 12.2 L Hct 38.1 L MCV 95.3 MCH 30.5 MCHC 32.0 RDW 14.7 H Plt Count 232 MPV 9.8 Neut % (Auto) 73.4 H Lymph % (Auto) 16.7 L Meade % (Auto) 6.0 Eos % (Auto) 3.4 Baso % (Auto) 0.5 Lymph # (Auto) 1.7 Meade # (Auto) 0.6 Eos # (Auto) 0.4 Baso # (Auto) 0.05 Absolute Neuts (auto) 7.46 H PT INR APTT pCO2 pO2 HCO3 ABG pH ABG Total CO2 ABG O2 Saturation ABG O2 Content ABG Base Excess ABG Hemoglobin ABG Carboxyhemoglobin POC ABG HHb (Measured) ABG Methemoglobin ABG O2 Capacity Hgb O2 Saturation FiO2 Sodium 140 Potassium 4.5 Chloride 104 Carbon Dioxide 31 Anion Gap 10 BUN 18 Creatinine 0.8 Est GFR ( Amer) > 60 Est GFR (Non-Af Amer) > 60 POC Glucose (mg/dL) 93 Random Glucose 98 Calcium 8.4 Phosphorus 4.4 Magnesium 2.5 H Total Bilirubin 0.6 AST 131 H D ALT 142 H Alkaline Phosphatase 51 Total Protein 6.5 Albumin 3.2 Globulin 3.3 Albumin/Globulin Ratio 1.0 L 07/08/18 07/08/18 07/08/18 09:55 11:10 11:10 WBC RBC Hgb Hct MCV MCH MCHC RDW Plt Count MPV Neut % (Auto) Lymph % (Auto) Meade % (Auto) Eos % (Auto) Baso % (Auto) Lymph # (Auto) Meade # (Auto) Eos # (Auto) Baso # (Auto) Absolute Neuts (auto) PT 12.7 H INR 1.12 APTT 27.6 pCO2 40 pO2 91.0 HCO3 27.2 ABG pH 7.44 ABG Total CO2 28.4 H ABG O2 Saturation 98.8 H ABG O2 Content 14.9 L ABG Base Excess 2.8 ABG Hemoglobin 11.0 L ABG Carboxyhemoglobin 1.8 H POC ABG HHb (Measured) 1.2 ABG Methemoglobin 1.2 ABG O2 Capacity 15.1 L Hgb O2 Saturation 95.9 FiO2 50.0 Sodium Potassium Chloride Carbon Dioxide Anion Gap BUN Creatinine Est GFR ( Amer) Est GFR (Non-Af Amer) POC Glucose (mg/dL) Random Glucose Calcium Phosphorus Magnesium Total Bilirubin AST ALT Alkaline Phosphatase Total Protein Albumin Globulin Albumin/Globulin Ratio 07/08/18 13:08 WBC RBC Hgb Hct MCV MCH MCHC RDW Plt Count MPV Neut % (Auto) Lymph % (Auto) [place] % (Auto) Eos % (Auto) Baso % (Auto) Lymph # (Auto) [place] # (Auto) Eos # (Auto) Baso # (Auto) Absolute Neuts (auto) PT INR APTT pCO2 pO2 HCO3 ABG pH ABG Total CO2 ABG O2 Saturation ABG O2 Content ABG Base Excess ABG Hemoglobin ABG Carboxyhemoglobin POC ABG HHb (Measured) ABG Methemoglobin ABG O2 Capacity Hgb O2 Saturation FiO2 Sodium Potassium Chloride Carbon Dioxide Anion Gap BUN Creatinine Est GFR ( Amer) Est GFR (Non-Af Amer) POC Glucose (mg/dL) 114 H Random Glucose Calcium Phosphorus Magnesium Total Bilirubin AST ALT Alkaline Phosphatase Total Protein Albumin Globulin Albumin/Globulin Ratio Addendum Addendum: 07/08/18 16:19 MICU Attending addendum Patient seen and examined on rounds with resident, agree with note with following additions/exceptions: 53M with obesity, polysubstance abuse, EtOH abuse, HTN, smoker s/p Vfib arrest s/p PCI with RCA stent Syncope HTN VFIB arrest s/p ROSC s/p PCI CAD anoxic brain injury Resp failure Patient has remained afebrile since yesterday no signs of sepsis requiring sedation, has some CN reflexes however likely has significant degree of anoxic injury Recommend: cont with vent support, low tidal vol ventilation f/u post trach today duonebs PRN, daily sedation vacation, CPAP trials, ABG, CXR suspect central fever, would stop abx after 7 days total On ASA, Statin, Prasugrel for stent holding statin given transmainities f/u Neuro rec and cardio rec PPI GI ppx hepSQ DVT ppx Dispo: will likely need PEG soon and LTACH CC time 31 mins
[2018-07-08 10:06] LABS: ARTERIAL BLOOD GAS HCO3 27.2 mmol/L (21-28); ARTERIAL BLOOD GAS O2 CAPACITY 15.1 mL/dl (16-24); ARTERIAL BLOOD GAS O2 CONTENT 14.9 ML/dl (15-23); ARTERIAL BLOOD GAS O2 SAT 98.8 % (95-98); ARTERIAL BLOOD GAS PCO2 40 mm/Hg (35-45); ARTERIAL BLOOD GAS PH 7.44 (7.35-7.45); ARTERIAL BLOOD GAS TCO2 28.4 mmol.L (22-28)
[2018-07-08 11:27] LABS: INR 1.12; PROTHROMBIN TIME 12.7 SECONDS (9.4-12.5)
--- NOTE | 2018-07-08 11:46 | CP.PCM.CON ---
<BrunojavonEmanuel - Last Filed: 07/08/18 12:05> History of Present Illness - History of Present Illness History of Present Illness: GI Fellow PGY4, consult note. Reuben Fung is a 53M who presented to ED several days ago for syncope and found to have a myocardial infarction. He apparently refused cardiac cath and subsequently went into Vfib arrest and found to have occluded RCA. Cardiac stents placed. He is on Effient. Patient likely has anoxic brain injury and was intubated. Unable to wean and is planning to have tracheostomy. We have been consulted for possible PEG placement. Family would like all measures taken and transferred closer to home. Patient is unresponsive upon my exam. PMHx - Tobacco user, CAD PSHx - see above FMHx - none provided SocHx - Family has been present. unable to obtain 12pt ROS due to current mental state. Past Patient History - Infectious Disease Hx of Infectious Diseases: None - Past Social History Smoking Status: Heavy Smoker > 10 Cigarettes Daily - CARDIAC Hx Cardiac Disorders: Yes Hx Hypertension: Yes - PULMONARY Hx Respiratory Disorders: No - NEUROLOGICAL Hx Neurological Disorder: No - HEENT Hx HEENT Problems: No - RENAL Hx Chronic Kidney Disease: No - ENDOCRINE/METABOLIC Hx Endocrine Disorders: No - HEMATOLOGICAL/ONCOLOGICAL Hx Blood Disorders: No - INTEGUMENTARY Hx Dermatological Problems: No - MUSCULOSKELETAL/RHEUMATOLOGICAL Hx Musculoskeletal Disorders: No - GASTROINTESTINAL Hx Gastrointestinal Disorders: No - GENITOURINARY/GYNECOLOGICAL Hx Genitourinary Disorders: No - PSYCHIATRIC Hx Psychophysiologic Disorder: No Hx Substance Use: No - SURGICAL HISTORY Hx Surgeries: No Meds Allergies/Adverse Reactions: Allergies Allergy/AdvReac Type Severity Reaction Status Date / Time No Known Allergies Allergy Verified 07/01/18 15:31 - Medications Medications: Current Medications Albuterol/Ipratropium (Duoneb 3 Mg/0.5 Mg (3 Ml) Ud) 3 ml IH Q2H PRN PRN Reason: Shortness of Breath Last Admin: 07/04/18 08:16 Dose: 3 ml Albuterol/Ipratropium (Duoneb 3 Mg/0.5 Mg (3 Ml) Ud) 3 ml IH [id number] [facility] Last Admin: 07/08/18 07:22 Dose: 3 ml Aspirin (Ecotrin) 81 mg PO DAILY [facility] Last Admin: 07/07/18 09:13 Dose: 81 mg Heparin Sodium (Porcine) (Heparin) 5,000 units SC Q8 [facility]; Protocol Last Admin: 07/08/18 05:58 Dose: 5,000 units Piperacillin Sod/Tazobactam Sod (Zosyn 3.375 In Ns 100ml) 100 mls @ 25 mls/hr IVPB Q8 [facility]; Protocol Stop: 07/11/18 14:01 Last Admin: 07/08/18 05:57 Dose: 25 mls/hr Propofol (Diprivan) 1,000 mg in 100 mls @ 6.314 mls/hr IV .[id number] PRN; Pr otocol PRN Reason: TITRATE PER MD ORDER Last Admin: 07/08/18 09:20 Dose: 50 mcg/kg/min, 31.57 mls/hr Midazolam 100 mg/100ml in NS (Midazolam 100 Mg/100ml In Ns) 100 mg in 100 mls @ 2 mls/hr IV .Q24H PRN; Protocol PRN Reason: Sedation Last Admin: 07/07/18 23:03 Dose: 5 mg/hr, 5 mls/hr Lorazepam (Ativan) 2 mg IVP Q2H PRN; Protocol PRN Reason: Anxiety Last Admin: 07/07/18 23:47 Dose: 2 mg Metoprolol Tartrate (Lopressor) 25 mg PO BID [facility] Last Admin: 07/08/18 09:15 Dose: 25 mg Nicotine (Nicoderm Cq) 1 patch TD DAILY [facility] Last Admin: 07/08/18 09:16 Dose: 1 patch Pantoprazole Sodium (Protonix Inj) 40 mg IVP Q12 [facility] Last Admin: 07/08/18 09:16 Dose: 40 mg Prasugrel (Effient) 10 mg PO DAILY [facility] Last Admin: 07/07/18 09:12 Dose: 10 mg Thiamine HCl (Vitamin B1 Tab) 500 mg PO DAILY [facility] Stop: 07/12/18 10:01 Physical Exam - Constitutional Appears: Non-toxic, No Acute Distress - Head Exam Head Exam: ATRAUMATIC, NORMAL INSPECTION - Eye Exam Eye Exam: absent: EOMI, Normal appearance - ENT Exam ENT Exam: Mucous Membranes Moist, Normal Exam - Respiratory Exam Respiratory Exam: Clear to Auscultation Bilateral, NORMAL BREATHING PATTERN Additional comments: Intubated - Cardiovascular Exam Cardiovascular Exam: REGULAR RHYTHM, +S1, +S2 - GI/Abdominal Exam GI & Abdominal Exam: Normal Bowel Sounds, Soft. absent: Distended, Organomegaly, Tenderness Additional comments: No surgical scars - Extremities Exam Extremities exam: Positive for: normal inspection. Negative for: pedal edema - Neurological Exam Neurological exam: Altered Additional comments: sedated - Skin Skin Exam: Normal Color, Warm Results - Vital Signs Recent Vital Signs: Last Vital Signs Temp 98.2 F 07/08/18 10:00 Pulse 82 07/08/18 10:00 Resp 18 07/07/18 07:13 BP 146/86 07/08/18 10:00 Pulse Ox 100 07/08/18 10:00 - Labs Result Diagrams: 07/08/18 05:30 07/08/18 05:30 Labs: Laboratory Results - last 24 hr 07/07/18 07/07/18 07/07/18 11:09 14:00 16:03 WBC RBC Hgb Hct MCV MCH MCHC RDW Plt Count MPV Neut % (Auto) Lymph % (Auto) [place] % (Auto) Eos % (Auto) Baso % (Auto) Lymph # (Auto) [place] # (Auto) Eos # (Auto) Baso # (Auto) Absolute Neuts (auto) PT INR pCO2 pO2 HCO3 ABG pH ABG Total CO2 ABG O2 Saturation ABG O2 Content ABG Base Excess ABG Hemoglobin ABG Carboxyhemoglobin POC ABG HHb (Measured) ABG Methemoglobin ABG O2 Capacity Hgb O2 Saturation FiO2 Sodium Potassium Chloride Carbon Dioxide Anion Gap BUN Creatinine Est GFR ( Amer) Est GFR (Non-Af Amer) POC Glucose (mg/dL) 129 H 93 Random Glucose Calcium Phosphorus Magnesium Total Bilirubin AST ALT Alkaline Phosphatase Total Protein Albumin Globulin Albumin/Globulin Ratio Urine Color Yellow Urine Appearance Clear Urine pH 7.5 Ur Specific [place] <= 1.005 Urine Protein Negative Urine Glucose (UA) Negative Urine Ketones Negative Urine Blood Moderate H Urine Nitrate Negative Urine Bilirubin Negative Urine Urobilinogen 1.0 H Ur Leukocyte Esterase Negative Urine RBC 15 - 20 H Urine WBC 1 - 3 Ur Epithelial Cells None Urine Bacteria Few 07/08/18 07/08/18 07/08/18 05:30 05:30 09:55 WBC 10.2 RBC 4.00 Hgb 12.2 L Hct 38.1 L MCV 95.3 MCH 30.5 MCHC 32.0 RDW 14.7 H Plt Count 232 MPV 9.8 Neut % (Auto) 73.4 H Lymph % (Auto) 16.7 L [place] % (Auto) 6.0 Eos % (Auto) 3.4 Baso % (Auto) 0.5 Lymph # (Auto) 1.7 [place] # (Auto) 0.6 Eos # (Auto) 0.4 Baso # (Auto) 0.05 Absolute Neuts (auto) 7.46 H PT INR pCO2 40 pO2 91.0 HCO3 27.2 ABG pH 7.44 ABG Total CO2 28.4 H ABG O2 Saturation 98.8 H ABG O2 Content 14.9 L ABG Base Excess 2.8 ABG Hemoglobin 11.0 L ABG Carboxyhemoglobin 1.8 H POC ABG HHb (Measured) 1.2 ABG Methemoglobin 1.2 ABG O2 Capacity 15.1 L Hgb O2 Saturation 95.9 FiO2 50.0 Sodium 140 Potassium 4.5 Chloride 104 Carbon Dioxide 31 Anion Gap 10 BUN 18 Creatinine 0.8 Est GFR ( Amer) > 60 Est GFR (Non-Af Amer) > 60 POC Glucose (mg/dL) Random Glucose 98 Calcium 8.4 Phosphorus 4.4 Magnesium 2.5 H Total Bilirubin 0.6 AST 131 H D ALT 142 H Alkaline Phosphatase 51 Total Protein 6.5 Albumin 3.2 Globulin 3.3 Albumin/Globulin Ratio 1.0 L Urine Color Urine Appearance Urine pH Ur Specific [place] Urine Protein Urine Glucose (UA) Urine Ketones Urine Blood Urine Nitrate Urine Bilirubin Urine Urobilinogen Ur Leukocyte Esterase Urine RBC Urine WBC Ur Epithelial Cells Urine Bacteria 07/08/18 11:10 WBC RBC Hgb Hct MCV MCH MCHC RDW Plt Count MPV Neut % (Auto) Lymph % (Auto) [place] % (Auto) Eos % (Auto) Baso % (Auto) Lymph # (Auto) [place] # (Auto) Eos # (Auto) Baso # (Auto) Absolute Neuts (auto) PT 12.7 H INR 1.12 pCO2 pO2 HCO3 ABG pH ABG Total CO2 ABG O2 Saturation ABG O2 Content ABG Base Excess ABG Hemoglobin ABG Carboxyhemoglobin POC ABG HHb (Measured) ABG Methemoglobin ABG O2 Capacity Hgb O2 Saturation FiO2 Sodium Potassium Chloride Carbon Dioxide Anion Gap BUN Creatinine Est GFR ( Amer) Est GFR (Non-Af Amer) POC Glucose (mg/dL) Random Glucose Calcium Phosphorus Magnesium Total Bilirubin AST ALT Alkaline Phosphatase Total Protein Albumin Globulin Albumin/Globulin Ratio Urine Color Urine Appearance Urine pH Ur Specific [place] Urine Protein Urine Glucose (UA) Urine Ketones Urine Blood Urine Nitrate Urine Bilirubin Urine Urobilinogen Ur Leukocyte Esterase Urine RBC Urine WBC Ur Epithelial Cells Urine Bacteria Assessment & Plan - Assessment and Plan (Free Text) Assessment: #Cardiogenic shock, Vfib arrest, RCA infarct s/p stenting #Acute Hypoxic respiratory failure, intubated, possible aspiration pneumonia #Anoxic brain injury #CAD #Elevated liver tests. PLAN: -Patient had stent placed (unknown if ANALISA or BMS?) and requires Effient to pre vent stent thrombosis. -PEG placement is a high risk procedure and not an emergency. Given he requires continued Effient, we recommend continuing NG tube feeds in this setting which can be continued for 1 month. Effient would need to be held upto 7 days before PEG could be placed. -Recommend re-evaluating holding Effient and PEG placement at 1 month. We will need to discuss with cardiology again at that time. -Liver tests are waxing and waning, likely from recent acute events. He likely has underlying NAFLD. Continue to monitor. -U/S reviewed showing hepatosteatosis. Hepatitis panel negative. Case discussed with Dr. Machuca, see attestation. - Date & Time Date: 07/08/18 Time: 11:53 <Erlin Machuca Y - Last Filed: 07/08/18 14:22> Meds - Medications Medications: Current Medications Albuterol/Ipratropium (Duoneb 3 Mg/0.5 Mg (3 Ml) Ud) 3 ml IH Q2H PRN PRN Reason: Shortness of Breath Last Admin: 07/04/18 08:16 Dose: 3 ml Albuterol/Ipratropium (Duoneb 3 Mg/0.5 Mg (3 Ml) Ud) 3 ml IH [id number] [facility] Last Admin: 07/08/18 13:05 Dose: 3 ml Aspirin (Ecotrin) 81 mg PO DAILY [facility] Last Admin: 07/07/18 09:13 Dose: 81 mg Heparin Sodium (Porcine) (Heparin) 5,000 units SC Q8 [facility]; Protocol Last Admin: 07/08/18 05:58 Dose: 5,000 units Piperacillin Sod/Tazobactam Sod (Zosyn 3.375 In Ns 100ml) 100 mls @ 25 mls/hr IVPB Q8 [facility]; Protocol Stop: 07/11/18 14:01 Last Admin: 07/08/18 13:22 Dose: 25 mls/hr Propofol (Diprivan) 1,000 mg in 100 mls @ 6.314 mls/hr IV .[id number] PRN; Protocol PRN Reason: TITRATE PER MD ORDER Last Admin: 07/08/18 13:00 Dose: 50 mcg/kg/min, 31.57 mls/hr Midazolam 100 mg/100ml in NS (Midazolam 100 Mg/100ml In Ns) 100 mg in 100 mls @ 2 mls/hr IV .Q24H PRN; Protocol PRN Reason: Sedation Last Admin: 07/07/18 23:03 Dose: 5 mg/hr, 5 mls/hr Lorazepam (Ativan) 2 mg IVP Q2H PRN; Protocol PRN Reason: Anxiety Last Admin: 07/07/18 23:47 Dose: 2 mg Metoprolol Tartrate (Lopressor) 25 mg PO BID [facility] Last Admin: 07/08/18 09:15 Dose: 25 mg Nicotine (Nicoderm Cq) 1 patch TD DAILY [facility] Last Admin: 07/08/18 09:16 Dose: 1 patch Pantoprazole Sodium (Protonix Inj) 40 mg IVP Q12 [facility] Last Admin: 07/08/18 09:16 Dose: 40 mg Prasugrel (Effient) 10 mg PO DAILY [facility] Last Admin: 07/07/18 09:12 Dose: 10 mg Thiamine HCl (Vitamin B1 Tab) 500 mg PO DAILY [facility] Stop: 07/12/18 10:01 Last Admin: 07/08/18 10:00 Dose: Not Given Results - Vital Signs Recent Vital Signs: Last Vital Signs Temp 98.2 F 07/08/18 10:00 Pulse 82 07/08/18 10:00 Resp 18 07/07/18 07:13 BP 146/86 07/08/18 10:00 Pulse Ox 100 07/08/18 10:00 - Labs Result Diagrams: 07/08/18 05:30 07/08/18 05:30 Labs: Laboratory Results - last 24 hr 07/07/18 07/07/18 07/07/18 11:09 14:00 16:03 WBC RBC Hgb Hct MCV MCH MCHC RDW Plt Count MPV Neut % (Auto) Lymph % (Auto) [place] % (Auto) Eos % (Auto) Baso % (Auto) Lymph # (Auto) [place] # (Auto) Eos # (Auto) Baso # (Auto) Absolute Neuts (auto) PT INR APTT pCO2 pO2 HCO3 ABG pH ABG Total CO2 ABG O2 Saturation ABG O2 Content ABG Base Excess ABG Hemoglobin ABG Carboxyhemoglobin POC ABG HHb (Measured) ABG Methemoglobin ABG O2 Capacity Hgb O2 Saturation FiO2 Sodium Potassium Chloride Carbon Dioxide Anion Gap BUN Creatinine Est GFR ( Amer) Est GFR (Non-Af Amer) POC Glucose (mg/dL) 129 H 93 Random Glucose Calcium Phosphorus Magnesium Total Bilirubin AST ALT Alkaline Phosphatase Total Protein Albumin Globulin Albumin/Globulin Ratio Urine Color Yellow Urine Appearance Clear Urine pH 7.5 Ur Specific [place] <= 1.005 Urine Protein Negative Urine Glucose (UA) Negative Urine Ketones Negative Urine Blood Moderate H Urine Nitrate Negative Urine Bilirubin Negative Urine Urobilinogen 1.0 H Ur Leukocyte Esterase Negative Urine RBC 15 - 20 H Urine WBC 1 - 3 Ur Epithelial Cells None Urine Bacteria Few 07/08/18 07/08/18 07/08/18 05:30 05:30 09:55 WBC 10.2 RBC 4.00 Hgb 12.2 L Hct 38.1 L MCV 95.3 MCH 30.5 MCHC 32.0 RDW 14.7 H Plt Count 232 MPV 9.8 Neut % (Auto) 73.4 H Lymph % (Auto) 16.7 L [place] % (Auto) 6.0 Eos % (Auto) 3.4 Baso % (Auto) 0.5 Lymph # (Auto) 1.7 [place] # (Auto) 0.6 Eos # (Auto) 0.4 Baso # (Auto) 0.05 Absolute Neuts (auto) 7.46 H PT INR APTT pCO2 40 pO2 91.0 HCO3 27.2 ABG pH 7.44 ABG Total CO2 28.4 H ABG O2 Saturation 98.8 H ABG O2 Content 14.9 L ABG Base Excess 2.8 ABG Hemoglobin 11.0 L ABG Carboxyhemoglobin 1.8 H POC ABG HHb (Measured) 1.2 ABG Methemoglobin 1.2 ABG O2 Capacity 15.1 L Hgb O2 Saturation 95.9 FiO2 50.0 Sodium 140 Potassium 4.5 Chloride 104 Carbon Dioxide 31 Anion Gap 10 BUN 18 Creatinine 0.8 Est GFR ( Amer) > 60 Est GFR (Non-Af Amer) > 60 POC Glucose (mg/dL) Random Glucose 98 Calcium 8.4 Phosphorus 4.4 Magnesium 2.5 H Total Bilirubin 0.6 AST 131 H D ALT 142 H Alkaline Phosphatase 51 Total Protein 6.5 Albumin 3.2 Globulin 3.3 Albumin/Globulin Ratio 1.0 L Urine Color Urine Appearance Urine pH Ur Specific [place] Urine Protein Urine Glucose (UA) Urine Ketones Urine Blood Urine Nitrate Urine Bilirubin Urine Urobilinogen Ur Leukocyte Esterase Urine RBC Urine WBC Ur Epithelial Cells Urine Bacteria 07/08/18 07/08/18 11:10 11:10 WBC RBC Hgb Hct MCV MCH MCHC RDW Plt Count MPV Neut % (Auto) Lymph % (Auto) [place] % (Auto) Eos % (Auto) Baso % (Auto) Lymph # (Auto) [place] # (Auto) Eos # (Auto) Baso # (Auto) Absolute Neuts (auto) PT 12.7 H INR 1.12 APTT 27.6 pCO2 pO2 HCO3 ABG pH ABG Total CO2 ABG O2 Saturation ABG O2 Content ABG Base Excess ABG Hemoglobin ABG Carboxyhemoglobin POC ABG HHb (Measured) ABG Methemoglobin ABG O2 Capacity Hgb O2 Saturation FiO2 Sodium Potassium Chloride Carbon Dioxide Anion Gap BUN Creatinine Est GFR ( Amer) Est GFR (Non-Af Amer) POC Glucose (mg/dL) Random Glucose Calcium Phosphorus Magnesium Total Bilirubin AST ALT Alkaline Phosphatase Total Protein Albumin Globulin Albumin/Globulin Ratio Urine Color Urine Appearance Urine pH Ur Specific [place] Urine Protein Urine Glucose (UA) Urine Ketones Urine Blood Urine Nitrate Urine Bilirubin Urine Urobilinogen Ur Leukocyte Esterase Urine RBC Urine WBC Ur Epithelial Cells Urine Bacteria Attending/Attestation - Attestation I have fully participated in the care of the patient.: Yes I have reviewed all pertinent clinical information: Yes Notes (Text): 07/08/18 14:17 V-fib cardiac arrest, s/p emergent cardiac cath, PCI Anoxic brain injury Transaminitis - Follow up neurology recommendations - Continue to monitor LFTs, viral hepatitis panel negative - GI called for placement of endoscopic feeding tube, however case discussed with cardiology and unable to temporarily hold effient at this time given acuity of coronary intervention and patient at high risk for thrombotic event. Therefore, will not be able to safely perform endoscopic feeding tube placement. Suggest NGT placement which can be used for up to 4 weeks and may reassess patient at that time for reconsideration of long winder tender nutritional feeding tube placement. - Will continue to monitor patient clinical course
--- NOTE | 2018-07-08 13:49 | CP.PCM.PN ---
<Nic Bae - Last Filed: 07/08/18 13:45> Subjective - Date & Time of Evaluation Date of Evaluation: 07/08/18 Time of Evaluation: 09:20 - Subjective Subjective: Nic Bae D.O. PGY-3, Internal Medicine Resident, Infectious Disease Progress Note 53-year-old male with a past medical history alcohol abuse, obesity, hypertension, and tobacco abuse who presented to [facility] [place] for complaints of a syncopal episode. Patient was found to have an elevated troponin but refused a cardiac catheterization. Patient suffered cardiac arrest while in ultrasound, V. fib, and was subsequently taken to the [facility] with stenting of the RCA and placement of intra-aortic balloon pump. Infectious disease was consulted for sepsis. Patient was seen and examined at bedside. Continues to be non-responsive. At times has anoxia related movements. Objective - Vital Signs/Intake and Output Vital Signs (last 24 hours): Temp Pulse Resp BP Pulse Ox 98.2 F 82 18 146/86 100 07/08/18 10:00 07/08/18 10:00 07/07/18 07:13 07/08/18 10:00 07/08/18 10:00 Intake and Output: 07/08/18 07/08/18 06:59 18:59 Intake Total 430 200 Output Total 700 Balance -270 200 - Medications Medications: Current Medications Albuterol/Ipratropium (Duoneb 3 Mg/0.5 Mg (3 Ml) Ud) 3 ml IH Q2H PRN PRN Reason: Shortness of Breath Last Admin: 07/04/18 08:16 Dose: 3 ml Albuterol/Ipratropium (Duoneb 3 Mg/0.5 Mg (3 Ml) Ud) 3 ml IH [id number] [facility] Last Admin: 07/08/18 13:05 Dose: 3 ml Aspirin (Ecotrin) 81 mg PO DAILY [facility] Last Admin: 07/07/18 09:13 Dose: 81 mg Heparin Sodium (Porcine) (Heparin) 5,000 units SC Q8 [facility]; Protocol Last Admin: 07/08/18 05:58 Dose: 5,000 units Piperacillin Sod/Tazobactam Sod (Zosyn 3.375 In Ns 100ml) 100 mls @ 25 mls/hr IVPB Q8 [facility]; Protocol Stop: 07/11/18 14:01 Last Admin: 07/08/18 13:22 Dose: 25 mls/hr Propofol (Diprivan) 1,000 mg in 100 mls @ 6.314 mls/hr IV .[id number] PRN; Protocol PRN Reason: TITRATE PER MD ORDER Last Admin: 07/08/18 13:00 Dose: 50 mcg/kg/min, 31.57 mls/hr Midazolam 100 mg/100ml in NS (Midazolam 100 Mg/100ml In Ns) 100 mg in 100 mls @ 2 mls/hr IV .Q24H PRN; Protocol PRN Reason: Sedation Last Admin: 07/07/18 23:03 Dose: 5 mg/hr, 5 mls/hr Lorazepam (Ativan) 2 mg IVP Q2H PRN; Protocol PRN Reason: Anxiety Last Admin: 07/07/18 23:47 Dose: 2 mg Metoprolol Tartrate (Lopressor) 25 mg PO BID [facility] Last Admin: 07/08/18 09:15 Dose: 25 mg Nicotine (Nicoderm Cq) 1 patch TD DAILY [facility] Last Admin: 07/08/18 09:16 Dose: 1 patch Pantoprazole Sodium (Protonix Inj) 40 mg IVP Q12 [facility] Last Admin: 07/08/18 09:16 Dose: 40 mg Prasugrel (Effient) 10 mg PO DAILY [facility] Last Admin: 07/07/18 09:12 Dose: 10 mg Thiamine HCl (Vitamin B1 Tab) 500 mg PO DAILY [facility] Stop: 07/12/18 10:01 Last Admin: 07/08/18 10:00 Dose: Not Given - Labs Labs: 07/08/18 05:30 07/08/18 05:30 PT 12.7 SECONDS (9.4-12.5) H 07/08/18 11:10 INR 1.12 07/08/18 11:10 APTT 30.1 Seconds (26.9-38.3) 07/02/18 11:15 - Constitutional Appears: No Acute Distress, intubated - Head Exam Head Exam: NORMOCEPHALIC - Eye Exam Eye Exam: absent: Scleral icterus - ENT Exam ENT Exam: Mucous Membranes Moist - Neck Exam Neck exam: Positive for: Normal Inspection - Respiratory Exam Respiratory Exam: Clear to Auscultation Bilateral. absent: Rales, Rhonchi, Wheezes - Cardiovascular Exam Cardiovascular Exam: RRR, +S1, +S2. absent: Gallop, Rubs - GI/Abdominal Exam GI & Abdominal Exam: Normal Bowel Sounds, Soft. absent: Distended, Tenderness - Extremities Exam Extremities exam: Negative for: calf tenderness, pedal edema - Neurological Exam Additional comments: anoxia related movements/jerks throughout - Skin Skin Exam: Dry, Warm Assessment and Plan - Assessment and Plan (Free Text) Assessment: 53-year-old male with a past medical history alcohol abuse, obesity, hypertension, and tobacco abuse who presented to [facility] [place] for complaints of a syncopal episode. Patient was found to have an elevated troponin but refused a cardiac catheterization. Patient suffered cardiac arrest while in ultrasound, V. fib, and was subsequently taken to the [facility] with stenting of the RCA and placement of intra-aortic balloon pump. Infectious disease was consulted for sepsis. Plan: Sepsis from aspiration pneumonia with MSSA Ventilator dependent respiratory failure Anoxic brain injury Cardiac arrest CAD status post PCI Hypertension Tobacco abuse Has been afebrile with no leukocytosis Continue Zosyn day 7 Dr. Gary's note reviewed and appreciated Dr. 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 Thank you for the pleasure of participating in the care of this interesting patient. <Arnel Akins - Last Filed: 07/08/18 22:41> Objective - Vital Signs/Intake and Output Vital Signs (last 24 hours): Temp Pulse Resp BP Pulse Ox 99.0 F 77 21 103/53 L 95 07/08/18 22:00 07/08/18 22:00 07/08/18 17:40 07/08/18 22:00 07/08/18 22:00 Intake and Output: 07/08/18 07/09/18 18:59 06:59 Intake Total 1337 100 Output Total 1950 Balance -613 100 - Medications Medications: Current Medications Albuterol/Ipratropium (Duoneb 3 Mg/0.5 Mg (3 Ml) Ud) 3 ml IH Q2H PRN PRN Reason: Shortness of Breath Last Admin: 07/08/18 16:57 Dose: 3 ml Albuterol/Ipratropium (Duoneb 3 Mg/0.5 Mg (3 Ml) Ud) 3 ml IH [id number] [facility] Last Admin: 07/08/18 20:15 Dose: 3 ml Aspirin (Ecotrin) 81 mg PO DAILY [facility] Last Admin: 07/08/18 17:18 Dose: 81 mg Heparin Sodium (Porcine) (Heparin) 5,000 units SC Q8 [facility]; Protocol Last Admin: 07/08/18 21:47 Dose: 5,000 units Hydromorphone HCl (Dilaudid) 0.5 mg IVP Q4H PRN PRN Reason: Pain, moderate (4-7) Piperacillin Sod/Tazobactam Sod (Zosyn 3.375 In Ns 100ml) 100 mls @ 25 mls/hr IVPB Q8 [facility]; Protocol Stop: 07/11/18 14:01 Last Admin: 07/08/18 21:48 Dose: 25 mls/hr Propofol (Diprivan) 1,000 mg in 100 mls @ 6.314 mls/hr IV .[id number] PRN; Protocol PRN Reason: TITRATE PER MD ORDER Last Admin: 07/08/18 19:31 Dose: 50 mcg/kg/min, 31.57 mls/hr Midazolam 100 mg/100ml in NS (Midazolam 100 Mg/100ml In Ns) 100 mg in 100 mls @ 2 mls/hr IV .Q24H PRN; Protocol PRN Reason: Sedation Last Admin: 07/08/18 18:14 Dose: 4 mg/hr, 4 mls/hr Thiamine HCl 300 mg/ Sodium (Chloride) 103 mls @ 206 mls/hr IV DAILY [facility] Last Admin: 07/08/18 18:12 Dose: 206 mls/hr Lorazepam (Ativan) 2 mg IVP Q2H PRN; Protocol PRN Reason: Anxiety Last Admin: 07/07/18 23:47 Dose: 2 mg Metoprolol Tartrate (Lopressor) 25 mg PO BID [facility] Last Admin: 07/08/18 17:18 Dose: 25 mg Nicotine (Nicoderm Cq) 1 patch TD DAILY [facility] Last Admin: 07/08/18 09:16 Dose: 1 patch Pantoprazole Sodium (Protonix Inj) 40 mg IVP Q12 [facility] Last Admin: 07/08/18 21:47 Dose: 40 mg Prasugrel (Effient) 10 mg PO DAILY [facility] Last Admin: 07/08/18 17:17 Dose: 10 mg - Labs Labs: 07/08/18 05:30 07/08/18 05:30 PT 12.7 SECONDS (9.4-12.5) H 07/08/18 11:10 INR 1.12 07/08/18 11:10 APTT 27.6 Seconds (26.9-38.3) 07/08/18 11:10 Assessment and Plan - Assessment and Plan (Free Text) Plan: Infectious Diseases Attending Physician Attestation Patient seen and examined at bedside, discussed with medical billing representative. I have reviewed the HPI, ROS, physical examination findings. I have also reviewed the pertinent labs and diagnostic imaging. I have fully participiated in the care of this patient. I agree with the above findings, assessment, plan.
--- NOTE | 2018-07-08 14:28 | PN ---
DATE: 07/08/2018 SUBJECTIVE: He is in the intensive care unit. He is on a ventilator. I called in Ear, Nose, and Throat for possible trach. I also called in GI for possible feeding tube. We are trying to get him to an LTAC, which is close to the family. PHYSICAL EXAMINATION: VITAL SIGNS: He has 98.3 temp, 79 pulse, 114/54 blood pressure. HEAD: Atraumatic, normocephalic. HEART: Regular rate. LUNGS: Decreased breath sounds. ABDOMEN: Soft, obese. EXTREMITIES: No edema. MEDICATIONS: He is on Ativan, Diprivan, DuoNeb, Ecotrin, Effient, heparin, Lopressor, midazolam, Nicoderm patch, Protonix, IV fluids, vitamin B1, and Zosyn IV. LABORATORY DATA: He has 10.2 white count, 12.2 hemoglobin, 38.1 hematocrit with 232 platelets. Sodium 140, potassium 4.5, BUN 23, creatinine 0.8, GFR is greater than 60, sugar is 98, calcium 8.4, phosphorous 4.4, magnesium 2.5. Total bili is 0.6, AST is 131, ALT is 142, alk phos 51, total protein is 6.5. Urine is moderate. ASSESSMENT AND PLAN: So, I am going to get trach with Ear, Nose, and Throat and GI for percutaneous endoscopic gastrostomy tube on family and hopefully we can get this arranged soon. Then, he will go to long-term acute care. Ministerio Wan DO MTDD
[2018-07-08] MEDS ORDERED: Lidocaine 1% w Epi 1:100,000 Inj ONE (14:59)
[2018-07-08] MEDS ORDERED: Lidocaine 1% Inj (20ml) ONE (15:00)
[2018-07-08] MEDS ORDERED: Midazolam 2 MG/2 ML VIAL ONE (15:00)
[2018-07-08] MEDS ORDERED: Propofol 10 mg/ml Inj (20 ML) ONE (15:00)
[2018-07-08] MEDS ORDERED: Rocuronium 10 mg/ml (5 ml) ONE ×2 (15:02→16:22)
--- NOTE | 2018-07-08 15:50 | PN ---
DATE: 07/08/2018 CARDIOLOGY FOLLOWUP SUBJECTIVE: The patient remains on a ventilator and sedated. PHYSICAL EXAMINATION: VITAL SIGNS: Blood pressure 146/86, heart rates in the 80s. NECK: Negative JVD. LUNGS: Without rales. HEART: Reveals S1 and S2. EXTREMITIES: Without edema. LABORATORY DATA: Hemoglobin is 12.2. BUN and creatinine are unremarkable. IMPRESSION: 1. Anoxic encephalopathy. 2. Respiratory failure. 3. Status post cardiogenic shock. 4. Status post inferior wall myocardial infarction with right ventricle involvement. 5. Hypercholesterolemia. 6. Likely chronic obstructive pulmonary disease. Given these findings, I would not recommend stopping the Effient for patient given his hemodynamic consequences of an occluded RCA which is a possibility given the drug-eluting stent placed in the RCA. Devonte Patel MD
--- NOTE | 2018-07-08 16:43 | PCM.SURG1 ---
Surgeon's Initial Post Op Note - Surgeon's Notes Surgeon: Dr. Moore Specialty Finishing Utility Person: Ignacio PGY3; Ferny PGY2; Thuy MS Type of Anesthesia: General Endo, Local Anesthesia Administered By: Dr. Martinez Pre-Operative Diagnosis: Ventilator Dependent Respiratory Failure Operative Findings: See operative report Post-Operative Diagnosis: Same Operation Performed: Open Tracheostomy with Size 8 non-fenestrated Tracheostomy Tube Specimen/Specimens Removed: None Estimated Blood Loss: EBL {In ML}: 10 Drains Used: No Drains Post-Op Condition: Fair Date of Surgery/Procedure: 07/08/18 Time of Surgery/Procedure: 16:47
[2018-07-08] MEDS: Albuterol-Ipratrop 3 mg / 0.5 (3 ml) UD IH PRN (16:57)
[2018-07-08] MEDS ORDERED: Thiamine 100 mg/ml Inj IM SCH (17:15)
[2018-07-08] MEDS: Midazolam 100 mg/100ml in NS 100 MG/100 ML SOL IV PRN (18:14)
[2018-07-09] MEDS: Albuterol-Ipratrop 3 mg / 0.5 (3 ml) UD IH SCH ×4 (02:15→20:01)
[2018-07-09] MEDS: Propofol 10 mg/ml 1,000 MG/100 ML VIAL IV PRN ×2 (02:36→07:11)
[2018-07-09] MEDS: Piperacillin/Tazobact 3.375 gm 100 ML IVPB SCH ×3 (06:02→21:52)
[2018-07-09 06:04] LABS: BASO # 0.03 K/mm3 (0.0-2.0); BASO % 0.3 % (0.0-3.0); EOS # 0.3 (0.0-0.7); EOS % 2.8 % (1.5-5.0); HEMOGLOBIN 11.5 g/dL (14.0-18.0); LYMPH # 1.2 (1.2-3.4); LYMPH % 11.6 % (22.0-35.0); MEAN CELL VOLUME 94.7 fl (80.0-105.0); MEAN CORPUSCULAR HEMOGLOBIN 30.5 pg (25.0-35.0); MEAN CORPUSCULAR HGB CONC 32.2 g/dl (31.0-37.0); MEAN PLATELET VOLUME 9.6 fl (7.0-11.0); MONO # 0.6 (0.1-0.6); MONO % 5.8 % (1.0-6.0); RBC 3.77 10^6/uL (3.5-6.1); RED CELL DISTRIBUTION WIDTH 14.7 % (11.5-14.5)
[2018-07-09 06:25] LABS: ARTERIAL BLOOD GAS HCO3 24.6 mmol/L (21-28); ARTERIAL BLOOD GAS HEMOGLOBIN 12.2 g/dL (11.7-17.4); ARTERIAL BLOOD GAS O2 CAPACITY 16.7 mL/dl (16-24); ARTERIAL BLOOD GAS O2 CONTENT 16.1 ML/dl (15-23); ARTERIAL BLOOD GAS O2 SAT 96.3 % (95-98); ARTERIAL BLOOD GAS PCO2 33 mm/Hg (35-45); ARTERIAL BLOOD GAS PH 7.48 (7.35-7.45); ARTERIAL BLOOD GAS TCO2 25.6 mmol.L (22-28)
--- NOTE | 2018-07-09 06:46 | CP.CCUPN ---
<Jaime Cardenas - Last Filed: 07/09/18 12:37> CCU Subjective - Physician Review Subjective (Free Text): Jaime Cardenas DO. Critical Care Progress note Patient seen and examined at bedside, intubated/sedated on propofol 40 mcg, versed 3 mg/hr. Trach in place, afebrile with no significant overnight events. 07/09/18 09:19 CCU Objective - Vital Signs / Intake & Output Vital Signs (Last 4 hours): Vital Signs Temp Pulse BP Pulse Ox 07/09/18 05:00 99.7 F H 92 H 135/81 97 07/09/18 04:00 99.9 F H 86 131/74 94 L 07/09/18 03:00 99.9 F H 83 126/77 95 Intake and Output (Last 8hrs): Intake & Output 07/08/18 07/08/18 07/09/18 14:59 22:59 06:59 Intake Total 200 1337 136 Output Total 1950 Balance 200 -613 136 Intake: IV 200 1037 136 Right Antecubital 372 Right Forearm 265 Tube Feeding 100 Other 200 Output: Urine 1950 Urethral (Orosco) 1950 - Physical Exam Head: Positive for: Atraumatic, Normocephalic Pupils: Positive for: Sluggish Extroacular Muscles: Positive for: EOMI Conjunctiva: Positive for: Normal Mouth: Positive for: Moist Mucous Membranes Nose (Internal): Positive for: Other (dried blood nticed, packing applied) Neck: Positive for: Normal Range of Motion. Negative for: JVD, Lymphadenopathy Respiratory/Chest: Positive for: Decreased Breath Sounds. Negative for: Whee zes, Rhonchi Cardiovascular: Positive for: Regular Rate and Rhythm, Normal S1, S2. Negative for: Murmurs, Rub, Gallop Abdomen: Negative for: Tenderness, Distention, Peritoneal Signs, Mass/Organomegaly Back: Positive for: Normal Inspection Upper Extremity: Positive for: Normal Inspection, NORMAL PULSES. Negative for: Cyanosis, Edema Lower Extremity: Positive for: Normal Inspection, NORMAL PULSES. Negative for: Edema, Cyanosis, Swelling, Erythema Neurological: Positive for: Other (moves all extremities. sedated) Skin: Positive for: Warm, Dry, Normal Color. Negative for: Rashes Psychiatric: Positive for: Other (intubated) - Medications Active Medications: Active Medications Generic Name Dose Route Start Last Admin Trade Name Freq PRN Reason Stop Dose Admin Albuterol/Ipratropium 3 ml 07/01/18 17:28 07/08/18 16:57 Duoneb 3 Mg/0.5 Mg (3 Ml) Ud IH 3 ml Q2H PRN Administration Shortness of Breath Albuterol/Ipratropium 3 ml 07/04/18 14:00 07/09/18 02:15 Duoneb 3 Mg/0.5 Mg (3 Ml) Ud IH 3 ml [id number] XU Administration Aspirin 81 mg 07/02/18 10:30 07/08/18 17:18 Ecotrin PO 81 mg DAILY XU Administration Heparin Sodium (Porcine) 5,000 units 07/03/18 14:00 07/09/18 06:01 Heparin SC 5,000 units Q8 XU Administration Protocol Hydromorphone HCl 0.5 mg 07/08/18 16:49 Dilaudid IVP Q4H PRN Pain, moderate (4-7) Piperacillin Sod/Tazobactam Sod 100 mls @ 25 mls/hr 07/03/18 14:00 07/09/18 06:02 Zosyn 3.375 In Ns 100ml IVPB 07/11/18 14:01 25 mls/hr Q8 XU Administration Protocol Propofol 1,000 mg in 100 mls @ 6.314 mls/hr 07/04/18 18:28 07/09/18 02:36 Diprivan IV 40 mcg/kg/min .[id number] PRN 25.256 mls/hr TITRATE PER MD ORDER Administration Protocol 10 MCG/KG/MIN Midazolam 100 mg/100ml in NS 100 mg in 100 mls @ 2 mls/hr 07/06/18 07:50 07/09/18 02:38 Midazolam 100 Mg/100ml In Ns IV 3 mg/hr .Q24H PRN 3 mls/hr Sedation Titration Protocol 2 MG/HR Thiamine HCl 300 mg/ Sodium 103 mls @ 206 mls/hr 07/08/18 18:00 07/08/18 18:12 Chloride IV 206 mls/hr DAILY XU Administration Lorazepam 2 mg 07/01/18 14:13 07/07/18 23:47 Ativan IVP 2 mg Q2H PRN Administration Anxiety Protocol Metoprolol Tartrate 25 mg 07/03/18 12:00 07/08/18 17:18 Lopressor PO 25 mg BID XU Administration Nicotine 1 patch 07/02/18 10:00 07/08/18 09:16 Nicoderm Cq TD 1 patch DAILY XU Administration Pantoprazole Sodium 40 mg 07/01/18 22:00 07/08/18 21:47 Protonix Inj IVP 40 mg Q12 XU Administration Prasugrel 10 mg 07/04/18 10:00 07/08/18 17:17 Effient PO 10 mg DAILY XU Administration - Patient Studies Lab Studies: Lab Studies 07/09/18 07/09/18 07/08/18 Range/Units 06:15 05:20 16:37 WBC 10.0 (4.5-11.0) 10^3/uL RBC 3.77 (3.5-6.1) 10^6/uL Hgb 11.5 L (14.0-18.0) g/dL Hct 35.7 L (42.0-52.0) % MCV 94.7 (80.0-105.0) fl MCH 30.5 (25.0-35.0) pg MCHC 32.2 (31.0-37.0) g/dl RDW 14.7 H (11.5-14.5) % Plt Count 246 (120.0-450.0) 10^3/uL MPV 9.6 (7.0-11.0) fl Neut % (Auto) 79.5 H (50.0-68.0) % Lymph % (Auto) 11.6 L (22.0-35.0) % Pierce % (Auto) 5.8 (1.0-6.0) % Eos % (Auto) 2.8 (1.5-5.0) % Baso % (Auto) 0.3 (0.0-3.0) % Lymph # (Auto) 1.2 (1.2-3.4) Pierce # (Auto) 0.6 (0.1-0.6) Eos # (Auto) 0.3 (0.0-0.7) Baso # (Auto) 0.03 (0.0-2.0) K/mm3 Absolute Neuts (auto) 7.98 H (1.4-6.5) PT (9.4-12.5) SECONDS INR APTT (26.9-38.3) Seconds pCO2 33 L (35-45) mm/Hg pO2 64.0 L (80-100) mm/Hg HCO3 24.6 (21-28) mmol/L ABG pH 7.48 H (7.35-7.45) ABG Total CO2 25.6 (22-28) mmol.L ABG O2 Saturation 96.3 (95-98) % ABG O2 Content 16.1 (15-23) ML/dl ABG Base Excess 1.5 (-2.0-3.0) mmol/L ABG Hemoglobin 12.2 (11.7-17.4) g/dL ABG Carboxyhemoglobin 2.0 H (0.5-1.5) % POC ABG HHb (Measured) 3.6 (0-5) % ABG Methemoglobin 1.0 (0.0-3.0) % ABG O2 Capacity 16.7 (16-24) mL/dl Hgb O2 Saturation 93.5 L (95.0-98.0) % FiO2 40.0 % Sodium (132-148) mmol/L Potassium (3.6-5.0) mmol/L Chloride (98-107) mmol/L Carbon Dioxide (21-33) mmol/L Anion Gap (10-20) BUN (7-21) mg/dL Creatinine (0.8-1.5) mg/dl Est GFR ( Amer) Est GFR (Non-Af Amer) POC Glucose (mg/dL) 109 (65-110) mg/dL Random Glucose (70-110) mg/dL Calcium (8.4-10.5) mg/dL Phosphorus (2.5-4.5) mg/dL Magnesium (1.7-2.2) mg/dL Total Bilirubin (0.2-1.3) mg/dL AST (17-59) U/L ALT (7-56) U/L Alkaline Phosphatase (38-126) U/L Total Protein (5.8-8.3) g/dL Albumin (3.0-4.8) g/dL Globulin gm/dL Albumin/Globulin Ratio (1.1-1.8) 07/08/18 07/08/18 07/08/18 Range/Units 13:08 11:10 11:10 WBC (4.5-11.0) 10^3/uL RBC (3.5-6.1) 10^6/uL Hgb (14.0-18.0) g/dL Hct (42.0-52.0) % MCV (80.0-105.0) fl MCH (25.0-35.0) pg MCHC (31.0-37.0) g/dl RDW (11.5-14.5) % Plt Count (120.0-450.0) 10^3/uL MPV (7.0-11.0) fl Neut % (Auto) (50.0-68.0) % Lymph % (Auto) (22.0-35.0) % Pierce % (Auto) (1.0-6.0) % Eos % (Auto) (1.5-5.0) % Baso % (Auto) (0.0-3.0) % Lymph # (Auto) (1.2-3.4) Pierce # (Auto) (0.1-0.6) Eos # (Auto) (0.0-0.7) Baso # (Auto) (0.0-2.0) K/mm3 Absolute Neuts (auto) (1.4-6.5) PT 12.7 H (9.4-12.5) SECONDS INR 1.12 APTT 27.6 (26.9-38.3) Seconds pCO2 (35-45) mm/Hg pO2 (80-100) mm/Hg HCO3 (21-28) mmol/L ABG pH (7.35-7.45) ABG Total CO2 (22-28) mmol.L ABG O2 Saturation (95-98) % ABG O2 Content (15-23) ML/dl ABG Base Excess (-2.0-3.0) mmol/L ABG Hemoglobin (11.7-17.4) g/dL ABG Carboxyhemoglobin (0.5-1.5) % POC ABG HHb (Measured) (0-5) % ABG Methemoglobin (0.0-3.0) % ABG O2 Capacity (16-24) mL/dl Hgb O2 Saturation (95.0-98.0) % FiO2 % Sodium (132-148) mmol/L Potassium (3.6-5.0) mmol/L Chloride (98-107) mmol/L Carbon Dioxide (21-33) mmol/L Anion Gap (10-20) BUN (7-21) mg/dL Creatinine (0.8-1.5) mg/dl Est GFR ( Amer) Est GFR (Non-Af Amer) POC Glucose (mg/dL) 114 H (65-110) mg/dL Random Glucose (70-110) mg/dL Calcium (8.4-10.5) mg/dL Phosphorus (2.5-4.5) mg/dL Magnesium (1.7-2.2) mg/dL Total Bilirubin (0.2-1.3) mg/dL AST (17-59) U/L ALT (7-56) U/L Alkaline Phosphatase (38-126) U/L Total Protein (5.8-8.3) g/dL Albumin (3.0-4.8) g/dL Globulin gm/dL Albumin/Globulin Ratio (1.1-1.8) 07/08/18 07/08/18 Range/Units 09:55 05:30 WBC (4.5-11.0) 10^3/uL RBC (3.5-6.1) 10^6/uL Hgb (14.0-18.0) g/dL Hct (42.0-52.0) % MCV (80.0-105.0) fl MCH (25.0-35.0) pg MCHC (31.0-37.0) g/dl RDW (11.5-14.5) % Plt Count (120.0-450.0) 10^3/uL MPV (7.0-11.0) fl Neut % (Auto) (50.0-68.0) % Lymph % (Auto) (22.0-35.0) % Pierce % (Auto) (1.0-6.0) % Eos % (Auto) (1.5-5.0) % Baso % (Auto) (0.0-3.0) % Lymph # (Auto) (1.2-3.4) Pierce # (Auto) (0.1-0.6) Eos # (Auto) (0.0-0.7) Baso # (Auto) (0.0-2.0) K/mm3 Absolute Neuts (auto) (1.4-6.5) PT (9.4-12.5) SECONDS INR APTT (26.9-38.3) Seconds pCO2 40 (35-45) mm/Hg pO2 91.0 (80-100) mm/Hg HCO3 27.2 (21-28) mmol/L ABG pH 7.44 (7.35-7.45) ABG Total CO2 28.4 H (22-28) mmol.L ABG O2 Saturation 98.8 H (95-98) % ABG O2 Content 14.9 L (15-23) ML/dl ABG Base Excess 2.8 (-2.0-3.0) mmol/L ABG Hemoglobin 11.0 L (11.7-17.4) g/dL ABG Carboxyhemoglobin 1.8 H (0.5-1.5) % POC ABG HHb (Measured) 1.2 (0-5) % ABG Methemoglobin 1.2 (0.0-3.0) % ABG O2 Capacity 15.1 L (16-24) mL/dl Hgb O2 Saturation 95.9 (95.0-98.0) % FiO2 50.0 % Sodium 140 (132-148) mmol/L Potassium 4.5 (3.6-5.0) mmol/L Chloride 104 (98-107) mmol/L Carbon Dioxide 31 (21-33) mmol/L Anion Gap 10 (10-20) BUN 18 (7-21) mg/dL Creatinine 0.8 (0.8-1.5) mg/dl Est GFR ( Amer) > 60 Est GFR (Non-Af Amer) > 60 POC Glucose (mg/dL) (65-110) mg/dL Random Glucose 98 (70-110) mg/dL Calcium 8.4 (8.4-10.5) mg/dL Phosphorus 4.4 (2.5-4.5) mg/dL Magnesium 2.5 H (1.7-2.2) mg/dL Total Bilirubin 0.6 (0.2-1.3) mg/dL AST 131 H D (17-59) U/L ALT 142 H (7-56) U/L Alkaline Phosphatase 51 (38-126) U/L Total Protein 6.5 (5.8-8.3) g/dL Albumin 3.2 (3.0-4.8) g/dL Globulin 3.3 gm/dL Albumin/Globulin Ratio 1.0 L (1.1-1.8) Laboratory Results - last 24 hr 07/08/18 07/08/18 07/08/18 05:30 09:55 11:10 WBC RBC Hgb Hct MCV MCH MCHC RDW Plt Count MPV Neut % (Auto) Lymph % (Auto) Pierce % (Auto) Eos % (Auto) Baso % (Auto) Lymph # (Auto) Pierce # (Auto) Eos # (Auto) Baso # (Auto) Absolute Neuts (auto) PT 12.7 H INR 1.12 APTT pCO2 40 pO2 91.0 HCO3 27.2 ABG pH 7.44 ABG Total CO2 28.4 H ABG O2 Saturation 98.8 H ABG O2 Content 14.9 L ABG Base Excess 2.8 ABG Hemoglobin 11.0 L ABG Carboxyhemoglobin 1.8 H POC ABG HHb (Measured) 1.2 ABG Methemoglobin 1.2 ABG O2 Capacity 15.1 L Hgb O2 Saturation 95.9 FiO2 50.0 Sodium 140 Potassium 4.5 Chloride 104 Carbon Dioxide 31 Anion Gap 10 BUN 18 Creatinine 0.8 Est GFR ( Amer) > 60 Est GFR (Non-Af Amer) > 60 POC Glucose (mg/dL) Random Glucose 98 Calcium 8.4 Phosphorus 4.4 Magnesium 2.5 H Total Bilirubin 0.6 AST 131 H D ALT 142 H Alkaline Phosphatase 51 Total Protein 6.5 Albumin 3.2 Globulin 3.3 Albumin/Globulin Ratio 1.0 L 07/08/18 07/08/18 07/08/18 11:10 13:08 16:37 WBC RBC Hgb Hct MCV MCH MCHC RDW Plt Count MPV Neut % (Auto) Lymph % (Auto) Pierce % (Auto) Eos % (Auto) Baso % (Auto) Lymph # (Auto) Pierce # (Auto) Eos # (Auto) Baso # (Auto) Absolute Neuts (auto) PT INR APTT 27.6 pCO2 pO2 HCO3 ABG pH ABG Total CO2 ABG O2 Saturation ABG O2 Content ABG Base Excess ABG Hemoglobin ABG Carboxyhemoglobin POC ABG HHb (Measured) ABG Methemoglobin ABG O2 Capacity Hgb O2 Saturation FiO2 Sodium Potassium Chloride Carbon Dioxide Anion Gap BUN Creatinine Est GFR ( Amer) Est GFR (Non-Af Amer) POC Glucose (mg/dL) 114 H 109 Random Glucose Calcium Phosphorus Magnesium Total Bilirubin AST ALT Alkaline Phosphatase Total Protein Albumin Globulin Albumin/Globulin Ratio 07/09/18 07/09/18 05:20 06:15 WBC 10.0 RBC 3.77 Hgb 11.5 L Hct 35.7 L MCV 94.7 MCH 30.5 MCHC 32.2 RDW 14.7 H Plt Count 246 MPV 9.6 Neut % (Auto) 79.5 H Lymph % (Auto) 11.6 L Pierce % (Auto) 5.8 Eos % (Auto) 2.8 Baso % (Auto) 0.3 Lymph # (Auto) 1.2 Pierce # (Auto) 0.6 Eos # (Auto) 0.3 Baso # (Auto) 0.03 Absolute Neuts (auto) 7.98 H PT INR APTT pCO2 33 L pO2 64.0 L HCO3 24.6 ABG pH 7.48 H ABG Total CO2 25.6 ABG O2 Saturation 96.3 ABG O2 Content 16.1 ABG Base Excess 1.5 ABG Hemoglobin 12.2 ABG Carboxyhemoglobin 2.0 H POC ABG HHb (Measured) 3.6 ABG Methemoglobin 1.0 ABG O2 Capacity 16.7 Hgb O2 Saturation 93.5 L FiO2 40.0 Sodium Potassium Chloride Carbon Dioxide Anion Gap BUN Creatinine Est GFR ( Amer) Est GFR (Non-Af Amer) POC Glucose (mg/dL) Random Glucose Calcium Phosphorus Magnesium Total Bilirubin AST ALT Alkaline Phosphatase Total Protein Albumin Globulin Albumin/Globulin Ratio Fingerstick Blood Sugar Results: 101 Review of Systems - Review of Systems Systems not reviewed;Unavailable: Altered Mental Status Critical Care Progress Note - Ventilator Checklist Head of Bed 30 Degrees: Yes Daily Sedation Vacation: Yes Daily Assessment of Readiness to Wean: Yes Daily Spontaneous Breathing Trial: Yes PUD Prophalyxis: Yes DVT Prophylaxis: Yes Oral Care with Chlorhexidine Gluconate {CHG}: Yes - Vent Settings MODE:: PRVC TIDAL VOLUME:: 450 RESP RATE:: 18 FIO2:: 40 PEEP:: 5 - Extremities/Vascular Does the Patient have a Orosco Catheter?: Yes Catheter Insertion Criteria: Need for accurate measurement of output in critically ill patient - Prophylaxis GI Prophylaxis GI: PPI - Prophylaxis DVT Prophylaxis DVT: Heparin SQ Assessment/Plan - Assessment and Plan (Free Text) Assessment: 53 y/o male admitted to ICU s/p VFib cardiac arrest with subsequent PCI with RCA stent placed. He sustained anoxic cerebral injury with diffuse cerebral edema requiring intubation on PRVC. Sedated on propofol and versed Plan: Neuro: -anoxic brain injury in the setting of VFib cardiac arrest with subsequent multiple defibrillation then PCI and RCA ANALISA placement -d/c propofol, versed. on prededex now. GCS=6 [id number] -hypothermic protocol not initiated on admission to ICU due to epistaxis and hemoptysis at that time -CT head: no ICH, diffuse cerebral edema -Video EEG: no seizure activity. Severe slowing/attenuation -continue ativan prn -continue thiamine 300 for neurocognitive activation as per neuro -neuro following, Dr King -heavy smoker. nicotine patch 21 mg/24 hr -maintain normothermia Cardio: -cardiac arrest due to VFib s/p PCI with RCA ANALISA -continue asa, lopressor, effient -statins held due to elevated LFT -ACEI initially held after PCI due to SHABNAM/rhabdomyolysis -started lisinopril 5 mg daily -maintain MAP>65 -maintain BP 130-140s/70-80s -Echo: LVEF 45% LVH with hypokinesis, mild pulm HTN -cardiology following Pulm: -ventilator dependent respiratory failure -switched from PRVC to PS/CPAP PEEP5/50% -mouth hygeine, DVT/GI ppx, head elevation 30 degree, sedation vacation -maintain O2>92% -COPD, chronic smoker, duonebs xu and prn -s/p tracheostomy (07/08) GI: -transaminitis likely due to shock liver in the setting of cardiac arrest -LFT fluctuating -patient alcoholic, obese -hepatitis panel negative -U/S abdomen: fibro/fatty liver infiltration -continue NG enteral feeding -as per GI note: continue NG feeding for one month then re-evaluate for possible PEG placement since this's a high risk procedure and not an emergency. Effient would need to be held up to 7 days before PEG could be placed. Renal: -rhabdomyolysis (improved) likely due to defibrillation with CPK trending down from 7571 to 4355 to 1077 -replete lytes as needed -UOP 3750 last 24 hours -hold IVF, rhabdo improved and patient is volume overloaded -maintain euvolemia, euglycemia -UDS positive for amphetamine, benzo ID: -patient has low grade fever, likely neurogenic -tracheal aspiration positive for MSSA -blood and urine cx negative to date -low procal, lactate -continue zosyn per ID -HIV, legionella, MRSA negative -ID following Heme: -H/H stable -continue monitoring Prophylaxis: GI ppx Protonix q12 DVT SCD, Heparin sq Continue ICU management Full code Family still working on transferring the patient to a hospital in [place], [place] where they all reside Case reviewed and plan discussed with attending physician Dr Janeth Kim <Satinder Kim - Last Filed: 07/09/18 17:07> CCU Objective - Vital Signs / Intake & Output Vital Signs (Last 4 hours): Vital Signs Pulse BP Pulse Ox 07/09/18 15:00 90 142/80 96 07/09/18 14:00 87 141/84 96 Intake and Output (Last 8hrs): Intake & Output 07/09/18 07/09/18 07/09/18 06:59 14:59 22:59 Intake Total 1102 154 Output Total 1800 Balance -698 154 Intake: IV 1062 154 Left Hand 300 Right Antecubital 480 Right Forearm 46 Oral 0 Tube Feeding 40 Output: Urine 1800 Urethral ([place]rosco) 1800 Other: # Bowel Movements 0 - Medications Active Medications: Active Medications Generic Name Dose Route Start Last Admin Trade Name Freq PRN Reason Stop Dose Admin Albuterol/Ipratropium 3 ml 07/01/18 17:28 07/08/18 16:57 Duoneb 3 Mg/0.5 Mg (3 Ml) Ud IH 3 ml Q2H PRN Administration Shortness of Breath Albuterol/Ipratropium 3 ml 07/04/18 14:00 07/09/18 13:18 Duoneb 3 Mg/0.5 Mg (3 Ml) Ud IH 3 ml [id number] XU Administration Aspirin 81 mg 07/02/18 10:30 07/09/18 09:11 Ecotrin PO 81 mg DAILY XU Administration Heparin Sodium (Porcine) 5,000 units 07/03/18 14:00 07/09/18 15:25 Heparin SC 5,000 units Q8 XU Administration Protocol Hydromorphone HCl 0.5 mg 07/08/18 16:49 Dilaudid IVP Q4H PRN Pain, moderate (4-7) Piperacillin Sod/Tazobactam Sod 100 mls @ 25 mls/hr 07/03/18 14:00 07/09/18 15:25 Zosyn 3.375 In Ns 100ml IVPB 07/11/18 14:01 25 mls/hr Q8 XU Administration Protocol Propofol 1,000 mg in 100 mls @ 6.314 mls/hr 07/04/18 18:28 07/09/18 08:00 Diprivan IV 0 mcg/kg/min .[id number] PRN 0 mls/hr TITRATE PER MD ORDER Titration Protocol 10 MCG/KG/MIN Midazolam 100 mg/100ml in NS 100 mg in 100 mls @ 2 mls/hr 07/06/18 07:50 07/09/18 08:15 Midazolam 100 Mg/100ml In Ns IV 0 mg/hr .Q24H PRN 0 mls/hr Sedation Titration Protocol 2 MG/HR Thiamine HCl 300 mg/ Sodium 103 mls @ 206 mls/hr 07/08/18 18:00 07/09/18 09:11 Chloride IV 206 mls/hr DAILY XU Administration Dexmedetomidine HCl 400 mcg in 100 mls @ 5.33 mls/hr 07/09/18 09:12 07/09/18 09:38 Precedex 400mcg/100ml IV 0.2 mcg/kg/hr .[id number] PRN 5.33 mls/hr Sedation Administration Protocol 0.2 MCG/KG/HR Lisinopril 5 mg 07/09/18 12:15 07/09/18 12:27 Zestril PO 5 mg DAILY XU Administration Lorazepam 2 mg 07/01/18 14:13 07/07/18 23:47 Ativan IVP 2 mg Q2H PRN Administration Anxiety Protocol Metoprolol Tartrate 25 mg 07/03/18 12:00 07/09/18 09:11 Lopressor PO 25 mg BID XU Administration Nicotine 1 patch 07/02/18 10:00 07/09/18 09:10 Nicoderm Cq TD 1 patch DAILY XU Administration Pantoprazole Sodium 40 mg 07/01/18 22:00 07/09/18 09:12 Protonix Inj IVP 40 mg Q12 XU Administration Prasugrel 10 mg 07/04/18 10:00 07/09/18 09:11 Effient PO 10 mg DAILY XU Administration - Patient Studies Lab Studies: Lab Studies 07/09/18 07/09/18 07/09/18 Range/Units 06:15 05:20 05:20 WBC 10.0 (4.5-11.0) 10^3/uL RBC 3.77 (3.5-6.1) 10^6/uL Hgb 11.5 L (14.0-18.0) g/dL Hct 35.7 L (42.0-52.0) % MCV 94.7 (80.0-105.0) fl MCH 30.5 (25.0-35.0) pg MCHC 32.2 (31.0-37.0) g/dl RDW 14.7 H (11.5-14.5) % Plt Count 246 (120.0-450.0) 10^3/uL MPV 9.6 (7.0-11.0) fl Neut % (Auto) 79.5 H (50.0-68.0) % Lymph % (Auto) 11.6 L (22.0-35.0) % Pierce % (Auto) 5.8 (1.0-6.0) % Eos % (Auto) 2.8 (1.5-5.0) % Baso % (Auto) 0.3 (0.0-3.0) % Lymph # (Auto) 1.2 (1.2-3.4) Pierce # (Auto) 0.6 (0.1-0.6) Eos # (Auto) 0.3 (0.0-0.7) Baso # (Auto) 0.03 (0.0-2.0) K/mm3 Absolute Neuts (auto) 7.98 H (1.4-6.5) pCO2 33 L (35-45) mm/Hg pO2 64.0 L (80-100) mm/Hg HCO3 24.6 (21-28) mmol/L ABG pH 7.48 H (7.35-7.45) ABG Total CO2 25.6 (22-28) mmol.L ABG O2 Saturation 96.3 (95-98) % ABG O2 Content 16.1 (15-23) ML/dl ABG Base Excess 1.5 (-2.0-3.0) mmol/L ABG Hemoglobin 12.2 (11.7-17.4) g/dL ABG Carboxyhemoglobin 2.0 H (0.5-1.5) % POC ABG HHb (Measured) 3.6 (0-5) % ABG Methemoglobin 1.0 (0.0-3.0) % ABG O2 Capacity 16.7 (16-24) mL/dl Hgb O2 Saturation 93.5 L (95.0-98.0) % FiO2 40.0 % Sodium 140 (132-148) mmol/L Potassium 3.9 (3.6-5.0) mmol/L Chloride 106 (98-107) mmol/L Carbon Dioxide 28 (21-33) mmol/L Anion Gap 10 (10-20) BUN 17 (7-21) mg/dL Creatinine 0.8 (0.8-1.5) mg/dl Est GFR ( Amer) > 60 Est GFR (Non-Af Amer) > 60 POC Glucose (mg/dL) (65-110) mg/dL Random Glucose 145 H (70-110) mg/dL Calcium 8.5 (8.4-10.5) mg/dL Phosphorus 2.6 (2.5-4.5) mg/dL Magnesium 2.3 H (1.7-2.2) mg/dL Total Bilirubin 0.4 (0.2-1.3) mg/dL AST 143 H (17-59) U/L ALT 213 H (7-56) U/L Alkaline Phosphatase 52 (38-126) U/L Total Protein 6.4 (5.8-8.3) g/dL Albumin 3.1 (3.0-4.8) g/dL Globulin 3.3 gm/dL Albumin/Globulin Ratio 1.0 L (1.1-1.8) 07/08/18 Range/Units 22:14 WBC (4.5-11.0) 10^3/uL RBC (3.5-6.1) 10^6/uL Hgb (14.0-18.0) g/dL Hct (42.0-52.0) % MCV (80.0-105.0) fl MCH (25.0-35.0) pg MCHC (31.0-37.0) g/dl RDW (11.5-14.5) % Plt Count (120.0-450.0) 10^3/uL MPV (7.0-11.0) fl Neut % (Auto) (50.0-68.0) % Lymph % (Auto) (22.0-35.0) % Pierce % (Auto) (1.0-6.0) % Eos % (Auto) (1.5-5.0) % Baso % (Auto) (0.0-3.0) % Lymph # (Auto) (1.2-3.4) Pierce # (Auto) (0.1-0.6) Eos # (Auto) (0.0-0.7) Baso # (Auto) (0.0-2.0) K/mm3 Absolute Neuts (auto) (1.4-6.5) pCO2 (35-45) mm/Hg pO2 (80-100) mm/Hg HCO3 (21-28) mmol/L ABG pH (7.35-7.45) ABG Total CO2 (22-28) mmol.L ABG O2 Saturation (95-98) % ABG O2 Content (15-23) ML/dl ABG Base Excess (-2.0-3.0) mmol/L ABG Hemoglobin (11.7-17.4) g/dL ABG Carboxyhemoglobin (0.5-1.5) % POC ABG HHb (Measured) (0-5) % ABG Methemoglobin (0.0-3.0) % ABG O2 Capacity (16-24) mL/dl Hgb O2 Saturation (95.0-98.0) % FiO2 % Sodium (132-148) mmol/L Potassium (3.6-5.0) mmol/L Chloride (98-107) mmol/L Carbon Dioxide (21-33) mmol/L Anion Gap (10-20) BUN (7-21) mg/dL Creatinine (0.8-1.5) mg/dl Est GFR ( Amer) Est GFR (Non-Af Amer) POC Glucose (mg/dL) 101 (65-110) mg/dL Random Glucose (70-110) mg/dL Calcium (8.4-10.5) mg/dL Phosphorus (2.5-4.5) mg/dL Magnesium (1.7-2.2) mg/dL Total Bilirubin (0.2-1.3) mg/dL AST (17-59) U/L ALT (7-56) U/L Alkaline Phosphatase (38-126) U/L Total Protein (5.8-8.3) g/dL Albumin (3.0-4.8) g/dL Globulin gm/dL Albumin/Globulin Ratio (1.1-1.8) Laboratory Results - last 24 hr 07/08/18 07/09/18 07/09/18 22:14 05:20 05:20 WBC 10.0 RBC 3.77 Hgb 11.5 L Hct 35.7 L MCV 94.7 MCH 30.5 MCHC 32.2 RDW 14.7 H Plt Count 246 MPV 9.6 Neut % (Auto) 79.5 H Lymph % (Auto) 11.6 L Pierce % (Auto) 5.8 Eos % (Auto) 2.8 Baso % (Auto) 0.3 Lymph # (Auto) 1.2 Pierce # (Auto) 0.6 Eos # (Auto) 0.3 Baso # (Auto) 0.03 Absolute Neuts (auto) 7.98 H pCO2 pO2 HCO3 ABG pH ABG Total CO2 ABG O2 Saturation ABG O2 Content ABG Base Excess ABG Hemoglobin ABG Carboxyhemoglobin POC ABG HHb (Measured) ABG Methemoglobin ABG O2 Capacity Hgb O2 Saturation FiO2 Sodium 140 Potassium 3.9 Chloride 106 Carbon Dioxide 28 Anion Gap 10 BUN 17 Creatinine 0.8 Est GFR ( Amer) > 60 Est GFR (Non-Af Amer) > 60 POC Glucose (mg/dL) 101 Random Glucose 145 H Calcium 8.5 Phosphorus 2.6 Magnesium 2.3 H Total Bilirubin 0.4 AST 143 H ALT 213 H Alkaline Phosphatase 52 Total Protein 6.4 Albumin 3.1 Globulin 3.3 Albumin/Globulin Ratio 1.0 L 07/09/18 06:15 WBC RBC Hgb Hct MCV MCH MCHC RDW Plt Count MPV Neut % (Auto) Lymph % (Auto) Pierce % (Auto) Eos % (Auto) Baso % (Auto) Lymph # (Auto) Pierce # (Auto) Eos # (Auto) Baso # (Auto) Absolute Neuts (auto) pCO2 33 L pO2 64.0 L HCO3 24.6 ABG pH 7.48 H ABG Total CO2 25.6 ABG O2 Saturation 96.3 ABG O2 Content 16.1 ABG Base Excess 1.5 ABG Hemoglobin 12.2 ABG Carboxyhemoglobin 2.0 H POC ABG HHb (Measured) 3.6 ABG Methemoglobin 1.0 ABG O2 Capacity 16.7 Hgb O2 Saturation 93.5 L FiO2 40.0 Sodium Potassium Chloride Carbon Dioxide Anion Gap BUN Creatinine Est GFR ( Amer) Est GFR (Non-Af Amer) POC Glucose (mg/dL) Random Glucose Calcium Phosphorus Magnesium Total Bilirubin AST ALT Alkaline Phosphatase Total Protein Albumin Globulin Albumin/Globulin Ratio Addendum Addendum: 07/09/18 17:06 MICU Attending addendum Patient seen and examined on rounds with resident, agree with note with following additions/exceptions: 53M with obesity, polysubstance abuse, EtOH abuse, HTN, smoker s/p Vfib arrest s/p PCI with RCA stent Syncope HTN VFIB arrest s/p ROSC s/p PCI CAD anoxic brain injury Resp failure Patient has remained afebrile no signs of sepsis requiring sedation, has some CN reflexes however likely has significant degree of anoxic injury s/p trach yesterday Recommend: cont trach ventilation low VT duonebs PRN, daily sedation vacation, CPAP trials suspect central fever, would stop abx after 7 days total On ASA, Statin, Prasugrel for stent holding statin given transmainities trend LFTs s f/u Neuro rec and cardio rec PPI GI ppx hepSQ DVT ppx Dispo: will likely need PEG soon and SERGIO Kim MICU Attending
[2018-07-09 07:09] LABS: ALBUMIN 3.1 g/dL (3.0-4.8); ALT/SGPT 213 U/L (7-56); AST/SGOT 143 U/L (17-59); BLOOD UREA NITROGEN 17 mg/dL (7-21); CALCIUM 8.5 mg/dL (8.4-10.5); GFR NON-AFRICAN AMERICAN > 60
[2018-07-09] MEDS ORDERED: Potassium Phosphate 3 mmol/ml Inj IV ONE (07:22)
[2018-07-09] MEDS ORDERED: Potassium Phosphate 15 MMOLE in Sodium Chloride 0.9% 250 ML IVPB ONE (07:30)
--- NOTE | 2018-07-09 08:11 | OP ---
PROCEDURE DATE: 07/08/2018 INDICATIONS FOR PROCEDURE: Mr. Reuben Fung is a 53-year-old male who presented to the ED several days ago for syncopal event and was found to have a myocardial infarction. The patient subsequently went into VFib arrest and was found to have an occluded right coronary artery. Cardiac stents were placed. The patient likely has anoxic brain injury and was therefore intubated. He was unable to be weaned, and a tracheostomy has been planned. DESCRIPTION OF PROCEDURE: The patient was placed in supine, and the neck was hyperextended. The neck and anterior chest were prepped and draped in the usual sterile fashion. A time-out was completed verifying correct patient, procedure, site, positioning prior to beginning the procedure. The thyroid and cricoid cartilages were palpated. The skin and subcutaneous tissue in this area were anesthetized with 1% lidocaine. A transverse midline incision was made from the middle of the thyroid cartilage just superior of the sternal notch. A hemostat was used to only dissect down to the cricoid thyroid membrane. The strap muscles of the cricoid laterally and the thyroid isthmus were retracted superiorly. The endotracheal tube was withdrawn to the level of the vocal cords. A transverse incision was made to the second and third rings with a #11 scalpel blade. A tracheal dilator was then used to dilate the trach. A #8-Upper Sorbian tracheostomy tube was inserted and advanced until the endotracheal tube was withdrawn completely. Position was confirmed by end-tidal CO2. Hemostasis was achieved in the incision with electrocautery. The tracheostomy tube was then sutured and placed, and tracheostomy pads placed and tied around the neck. The patient tolerated the procedure well and was taken back to the intensive care unit in stable condition. Narciso Pierre DO Jaden Moore DO
[2018-07-09] MEDS: Dexmedetomidine 400mcg/100mL 400 MCG/100 ML BOTTLE IV PRN ×2 (09:38→23:08)
--- NOTE | 2018-07-09 10:32 | CP.PCM.PN ---
<Emanuel Gary - Last Filed: 07/09/18 17:37> Subjective - Date & Time of Evaluation Date of Evaluation: 07/09/18 Time of Evaluation: 10:30 - Subjective Subjective: Patient is stable. He had tracheostomy yesterday. He is off sedation but no significant neurologic response at this time. No acute overnight events. Objective - Vital Signs/Intake and Output Vital Signs (last 24 hours): Temp Pulse Resp BP Pulse Ox 99.7 F H 88 21 137/71 96 07/09/18 06:00 07/09/18 09:11 07/08/18 17:40 07/09/18 09:11 07/09/18 06:00 Intake and Output: 07/09/18 07/09/18 06:59 18:59 Intake Total 1302 Output Total 1800 Balance -498 - Medications Medications: Current Medications Albuterol/Ipratropium (Duoneb 3 Mg/0.5 Mg (3 Ml) Ud) 3 ml IH Q2H PRN PRN Reason: Shortness of Breath Last Admin: 07/08/18 16:57 Dose: 3 ml Albuterol/Ipratropium (Duoneb 3 Mg/0.5 Mg (3 Ml) Ud) 3 ml IH [id number] ALIN Last Admin: 07/09/18 07:10 Dose: 3 ml Aspirin (Ecotrin) 81 mg PO DAILY [facility] Last Admin: 07/09/18 09:11 Dose: 81 mg Heparin Sodium (Porcine) (Heparin) 5,000 units SC Q8 [facility]; Protocol Last Admin: 07/09/18 06:01 Dose: 5,000 units Hydromorphone HCl (Dilaudid) 0.5 mg IVP Q4H PRN PRN Reason: Pain, moderate (4-7) Piperacillin Sod/Tazobactam Sod (Zosyn 3.375 In Ns 100ml) 100 mls @ 25 mls/hr IVPB Q8 [facility]IN; Protocol Stop: 07/11/18 14:01 Last Admin: 07/09/18 06:02 Dose: 25 mls/hr Propofol (Diprivan) 1,000 mg in 100 mls @ 6.314 mls/hr IV .[id number] PRN; Protocol PRN Reason: TITRATE PER MD ORDER Last Admin: 07/09/18 07:11 Dose: 40 mcg/kg/min, 25.256 mls/hr Midazolam 100 mg/100ml in NS (Midazolam 100 Mg/100ml In Ns) 100 mg in 100 mls @ 2 mls/hr IV .Q24H PRN; Protocol PRN Reason: Sedation Last Titration: 07/09/18 02:38 Dose: 3 mg/hr, 3 mls/hr Thiamine HCl 300 mg/ Sodium (Chloride) 103 mls @ 206 mls/hr IV DAILY [facility]IN Last Admin: 07/09/18 09:11 Dose: 206 mls/hr Potassium Phosphate 15 mmole/ (Sodium Chloride) 255 mls @ 42.5 mls/hr IVPB ONCE ONE Stop: 07/09/18 13:29 Last Admin: 07/09/18 08:59 Dose: 42.5 mls/hr Dexmedetomidine HCl (Precedex 400mcg/100ml) 400 mcg in 100 mls @ 5.33 mls/hr IV .[id number] PRN; Protocol PRN Reason: Sedation Last Admin: 07/09/18 09:38 Dose: 0.2 mcg/kg/hr, 5.33 mls/hr Lorazepam (Ativan) 2 mg IVP Q2H PRN; Protocol PRN Reason: Anxiety Last Admin: 07/07/18 23:47 Dose: 2 mg Metoprolol Tartrate (Lopressor) 25 mg PO BID COUNT INCLUDES THE [facility] Last Admin: 07/09/18 09:11 Dose: 25 mg Nicotine (Nicoderm Cq) 1 patch TD DAILY COUNT INCLUDES THE [facility] Last Admin: 07/09/18 09:10 Dose: 1 patch Pantoprazole Sodium (Protonix Inj) 40 mg IVP Q12 [facility] Last Admin: 07/09/18 09:12 Dose: 40 mg Prasugrel (Effient) 10 mg PO DAILY COUNT INCLUDES THE [facility] Last Admin: 07/09/18 09:11 Dose: 10 mg - Labs Labs: 07/09/18 05:20 07/09/18 05:20 PT 12.7 SECONDS (9.4-12.5) H 07/08/18 11:10 INR 1.12 07/08/18 11:10 APTT 27.6 Seconds (26.9-38.3) 07/08/18 11:10 - Constitutional Appears: Non-toxic, No Acute Distress - Head Exam Head Exam: ATRAUMATIC, NORMAL INSPECTION - Eye Exam Eye Exam: EOMI, Normal appearance - Respiratory Exam Respiratory Exam: Clear to Ausculation Bilateral, NORMAL BREATHING PATTERN - Cardiovascular Exam Cardiovascular Exam: REGULAR RHYTHM, +S1, +S2 - GI/Abdominal Exam GI & Abdominal Exam: Soft, Normal Bowel Sounds. absent: Tenderness - Extremities Exam Extremities Exam: Normal Inspection. absent: Pedal Edema - Psychiatric Exam Psychiatric exam: Flat Affect - Skin Skin Exam: Normal Color, Warm Assessment and Plan - Assessment and Plan (Free Text) Assessment: #Cardiogenic shock, Vfib arrest, RCA infarct s/p stenting #Acute Hypoxic respiratory failure, intubated, possible aspiration pneumonia #Anoxic brain injury #CAD #Elevated liver tests. PLAN: -Patient had stent placed, ANALISA, and requires Effient to prevent stent thrombosis. -PEG placement is a high risk procedure and not an emergency. Given he requires continued Effient, we recommend continuing NG tube feeds in this setting which can be continued for 1 month. Effient would need to be held upto 7 days before PEG could be placed. -Recommend re-evaluating holding Effient and PEG placement at 1 month. We will need to discuss with cardiology again at that time. -Liver tests are waxing and waning, likely from recent acute events. He possibly has underlying NAFLD. Continue to monitor. -U/S reviewed showing hepatosteatosis. Hepatitis panel negative. -We will sign-off at this point, please reconsult as needed. Case discussed with Dr. Machuca, see attestation <Erlin Machuca - Last Filed: 07/09/18 17:45> Objective - Vital Signs/Intake and Output Vital Signs (last 24 hours): Temp Pulse Resp BP Pulse Ox 99.0 F 90 21 142/80 96 07/09/18 11:00 07/09/18 15:00 07/08/18 17:40 07/09/18 15:00 07/09/18 15:00 Intake and Output: 07/09/18 07/09/18 06:59 18:59 Intake Total 1302 154 Output Total 1800 Balance -498 154 - Medications Medications: Current Medications Albuterol/Ipratropium (Duoneb 3 Mg/0.5 Mg (3 Ml) Ud) 3 ml IH Q2H PRN PRN Reason: Shortness of Breath Last Admin: 07/08/18 16:57 Dose: 3 ml Albuterol/Ipratropium (Duoneb 3 Mg/0.5 Mg (3 Ml) Ud) 3 ml IH [id number] COUNT INCLUDES THE [facility] Last Admin: 07/09/18 13:18 Dose: 3 ml Aspirin (Ecotrin) 81 mg PO DAILY COUNT INCLUDES THE [facility] Last Admin: 07/09/18 09:11 Dose: 81 mg Heparin Sodium (Porcine) (Heparin) 5,000 units SC Q8 COUNT INCLUDES THE [facility]; Protocol Last Admin: 07/09/18 15:25 Dose: 5,000 units Hydromorphone HCl (Dilaudid) 0.5 mg IVP Q4H PRN PRN Reason: Pain, moderate (4-7) Piperacillin Sod/Tazobactam Sod (Zosyn 3.375 In Ns 100ml) 100 mls @ 25 mls/hr IVPB Q8 COUNT [facility]CLUDES THE [facility]; Protocol Stop: 07/11/18 14:01 Last Admin: 07/09/18 15:25 Dose: 25 mls/hr Propofol (Diprivan) 1,000 mg in 100 mls @ 6.314 mls/hr IV .[id number] PRN; Protocol PRN Reason: TITRATE PER MD ORDER Last Titration: 07/09/18 08:00 Dose: 0 mcg/kg/min, 0 mls/hr Midazolam 100 mg/100ml in NS (Midazolam 100 Mg/100ml In Ns) 100 mg in 100 mls @ 2 mls/hr IV .Q24H PRN; Protocol PRN Reason: Sedation Last Titration: 07/09/18 08:15 Dose: 0 mg/hr, 0 mls/hr Thiamine HCl 300 mg/ Sodium (Chloride) 103 mls @ 206 mls/hr IV DAILY COUNT INCLUDES THE [facility] Last Admin: 07/09/18 09:11 Dose: 206 mls/hr Dexmedetomidine HCl (Precedex 400mcg/100ml) 400 mcg in 100 mls @ 5.33 mls/hr IV .[id number] PRN; Protocol PRN Reason: Sedation Last Admin: 07/09/18 09:38 Dose: 0.2 mcg/kg/hr, 5.33 mls/hr Lisinopril (Zestril) 5 mg PO DAILY COUNT INCLUDES [facility] Last Admin: 07/09/18 12:27 Dose: 5 mg Lorazepam (Ativan) 2 mg IVP Q2H PRN; Protocol PRN Reason: Anxiety Last Admin: 07/07/18 23:47 Dose: 2 mg Metoprolol Tartrate (Lopressor) 25 mg PO BID COUNT INCLUDES THE [facility] Last Admin: 07/09/18 09:11 Dose: 25 mg Nicotine (Nicoderm Cq) 1 patch TD DAILY COUNT INCLUDES THE [facility] Last Admin: 07/09/18 09:10 Dose: 1 patch Pantoprazole Sodium (Protonix Inj) 40 mg IVP Q12 COUNT INCLUDES THE [facility] Last Admin: 07/09/18 09:12 Dose: 40 mg Prasugrel (Effient) 10 mg PO DAILY COUNT INCLUDES THE [facility] Last Admin: 07/09/18 09:11 Dose: 10 mg - Labs Labs: 07/09/18 05:20 07/09/18 05:20 PT 12.7 SECONDS (9.4-12.5) H 07/08/18 11:10 INR 1.12 07/08/18 11:10 APTT 27.6 Seconds (26.9-38.3) 07/08/18 11:10 Attending/Attestation - Attestation I have fully participated in the care of the patient.: Yes I have reviewed all pertinent clinical information, including history, physical exam and plan: Yes Notes (Text): 07/09/18 17:41 V-fib cardiac arrest, anoxic brain injury CAD s/p ANALISA on Effient Transaminitis, viral hepatitis panel negative - Continue with tube feeding as tolerated - Continue to monitor LFTs, elevation likely related to ischemic hepatitis given clinical scenario. Abdominal US reveals fatty liver without hepatic lesions. 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 Therefore GI unable to place endoscopic feeding tube placement due to potential of rosalio-procedure bleeding complications. Suggest ongoing NGT feeding with reevaluation of patient within 1 month to decide optimal rn long term care feeding strategy. No further planned GI intervention, will sign off case. Please reconsult as necessary, thank you.
--- NOTE | 2018-07-09 10:47 | PN ---
DATE: 07/09/2018 SUBJECTIVE: He is in Intensive Care Unit, he finally got his tracheostomy in place. Now he is on his trach vent waiting for a feeding tube to be placed. MEDICATIONS: He is on Ativan, Dilaudid, Diprivan, DuoNeb, Ecotrin, Effient, heparin, Lopressor, midazolam, Nicoderm, potassium replacement, Protonix, thiamine and Zosyn IV. PHYSICAL EXAMINATION: VITAL SIGNS: He has a 99.7 temp, 91 pulse, 140/85 blood pressure, respiratory rate and 96% on O2 sat on 50% oxygen. HEENT: Head is atraumatic and normocephalic. HEART: Regular rate. LUNGS: Decreased breath sounds, but clear. ABDOMEN: Soft and obese. EXTREMITIES: No edema. LABORATORY DATA: He has a 10 white count, 11.5 hemoglobin, 35.7 hematocrit and 246 platelets. His last lactate was 0.7. He has sodium 140, potassium 3.9, BUN 17, creatinine 0.8, GFR is greater than 60, sugar is 145, calcium is 8.5, phosphorous 2.6, magnesium 2.3, total bili is 0.4, AST 143, ALT is 213, alk phos and total protein 6.4. Urine was moderate blood, few bacteria now. Nonreactive HIV, negative pneumophila and negative hepatitis. 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 He has anoxic encephalopathy, respiratory failure, cardiogenic shock, he had NSTEMI and now he is on a ventilator with a trach and hopefully a PEG tube next and then to a long-term care facility near his family. Ministerio Wan DO [email or web address]
--- NOTE | 2018-07-09 11:05 | PN ---
DATE: 07/09/2018 CARDIOLOGY FOLLOWUP SUBJECTIVE: The patient remains on a ventilator. He is off sedation and he does open his eyes spontaneously. PHYSICAL EXAMINATION VITAL SIGNS: Blood pressure 137/71 and heart rates in the 80s. NECK: Negative JVD. LUNGS: Without rales. HEART: Reveals S1 and S2. EXTREMITIES: Without edema. LABORATORY DATA: Hemoglobin is 11.5. Chemistries, BUN and creatinine unremarkable. Glucose 145. IMPRESSION: 1. Status post cardiogenic shock. 2. Status post inferior wall myocardial infarction with right ventricular infarction. 3. Respiratory failure. 4. Anoxic encephalopathy. 5. Coronary artery disease. Given these findings, we should hold his sedation and see where the patient's neurologic status is. The patient is hemodynamically stable. Devonte Patel MD
--- NOTE | 2018-07-09 13:46 | CP.PCM.PN ---
<Nic Bae - Last Filed: 07/09/18 13:44> Subjective - Date & Time of Evaluation Date of Evaluation: 07/09/18 Time of Evaluation: 09:10 - Subjective Subjective: Nic Bae D.O. PGY-3, Internal Medicine Resident, Infectious Disease Progress Note 53-year-old male with a past medical history alcohol abuse, obesity, hypertension, and tobacco abuse who presented to [facility] for complaints of a syncopal episode. Patient was found to have an elevated troponin but refused a cardiac catheterization. Patient suffered cardiac arrest while in ultrasound, V. fib, and was subsequently taken to the [facility] with stenting of the RCA and placement of intra-aortic balloon pump. Infectious disease was consulted for sepsis. Patient was seen and examined at bedside. S/p trach insertion. Nonresponsive. Objective - Vital Signs/Intake and Output Vital Signs (last 24 hours): Temp Pulse Resp BP Pulse Ox 99.7 F H 102 H 21 160/104 H 96 07/09/18 06:00 07/09/18 12:27 07/08/18 17:40 07/09/18 12:27 07/09/18 06:00 Intake and Output: 07/09/18 07/09/18 06:59 18:59 Intake Total 1302 Output Total 1800 Balance -498 - Medications Medications: Current Medications Albuterol/Ipratropium (Duoneb 3 Mg/0.5 Mg (3 Ml) Ud) 3 ml IH Q2H PRN PRN Reason: Shortness of Breath Last Admin: 07/08/18 16:57 Dose: 3 ml Albuterol/Ipratropium (Duoneb 3 Mg/0.5 Mg (3 Ml) Ud) 3 ml IH [id number] [facility] Last Admin: 07/09/18 13:18 Dose: 3 ml Aspirin (Ecotrin) 81 mg PO DAILY [facility] Last Admin: 07/09/18 09:11 Dose: 81 mg Heparin Sodium (Porcine) (Heparin) 5,000 units SC Q8 [facility]; Protocol Last Admin: 07/09/18 06:01 Dose: 5,000 units Hydromorphone HCl (Dilaudid) 0.5 mg IVP Q4H PRN PRN Reason: Pain, moderate (4-7) Piperacillin Sod/Tazobactam Sod (Zosyn 3.375 In Ns 100ml) 100 mls @ 25 mls/hr IVPB Q8 AL[facility]; Protocol Stop: 07/11/18 14:01 Last Admin: 07/09/18 06:02 Dose: 25 mls/hr Propofol (Diprivan) 1,000 mg in 100 mls @ 6.314 mls/hr IV .[id number] PRN; Brad col PRN Reason: TITRATE PER MD ORDER Last Admin: 07/09/18 07:11 Dose: 40 mcg/kg/min, 25.256 mls/hr Midazolam 100 mg/100ml in NS (Midazolam 100 Mg/100ml In Ns) 100 mg in 100 mls @ 2 mls/hr IV .Q24H PRN; Protocol PRN Reason: Sedation Last Titration: 07/09/18 02:38 Dose: 3 mg/hr, 3 mls/hr Thiamine HCl 300 mg/ Sodium (Chloride) 103 mls @ 206 mls/hr IV DAILY [facility] Last Admin: 07/09/18 09:11 Dose: 206 mls/hr Dexmedetomidine HCl (Precedex 400mcg/100ml) 400 mcg in 100 mls @ 5.33 mls/hr IV .[id number] PRN; Protocol PRN Reason: Sedation Last Admin: 07/09/18 09:38 Dose: 0.2 mcg/kg/hr, 5.33 mls/hr Lisinopril (Zestril) 5 mg PO DAILY [facility] Last Admin: 07/09/18 12:27 Dose: 5 mg Lorazepam (Ativan) 2 mg IVP Q2H PRN; Protocol PRN Reason: Anxiety Last Admin: 07/07/18 23:47 Dose: 2 mg Metoprolol Tartrate (Lopressor) 25 mg PO BID [facility] Last Admin: 07/09/18 09:11 Dose: 25 mg Nicotine (Nicoderm Cq) 1 patch TD DAILY [facility] Last Admin: 07/09/18 09:10 Dose: 1 patch Pantoprazole Sodium (Protonix Inj) 40 mg IVP Q12 [facility] Last Admin: 07/09/18 09:12 Dose: 40 mg Prasugrel (Effient) 10 mg PO DAILY [facility] Last Admin: 07/09/18 09:11 Dose: 10 mg - Labs Labs: 07/09/18 05:20 07/09/18 05:20 PT 12.7 SECONDS (9.4-12.5) H 07/08/18 11:10 INR 1.12 07/08/18 11:10 APTT 27.6 Seconds (26.9-38.3) 07/08/18 11:10 - Constitutional Appears: No Acute Distress, intubated - Head Exam Head Exam: NORMOCEPHALIC - Eye Exam Eye Exam: absent: Scleral icterus - ENT Exam ENT Exam: Mucous Membranes Moist - Neck Exam Neck exam: Positive for: Normal Inspection - Respiratory Exam Respiratory Exam: Clear to Auscultation Bilateral. absent: Rales, Rhonchi, Wheezes - Cardiovascular Exam Cardiovascular Exam: RRR, +S1, +S2. absent: Gallop, Rubs - GI/Abdominal Exam GI & Abdominal Exam: Normal Bowel Sounds, Soft. absent: Distended, Tenderness - Extremities Exam Extremities exam: Negative for: calf tenderness, pedal edema - Neurological Exam Additional comments: appears awake but is not alert - Skin Skin Exam: Dry, Warm Assessment and Plan - Assessment and Plan (Free Text) Assessment: 53-year-old male with a past medical history alcohol abuse, obesity, hypertension, and tobacco abuse who presented to [facility] for complaints of a syncopal episode. Patient was found to have an elevated troponin but refused a cardiac catheterization. Patient suffered cardiac arrest while in ultrasound, V. fib, and was subsequently taken to the [facility] with stenting of the RCA and placement of intra-aortic balloon pump. Infectious disease was consulted for sepsis. 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 Thank you for the pleasure of participating in the care of this interesting patient. <Arnel Akins - Last Filed: 07/09/18 23:33> Objective - Vital Signs/Intake and Output Vital Signs (last 24 hours): Temp Pulse Resp BP Pulse Ox 99.5 F 78 21 136/77 96 07/09/18 12:00 07/09/18 20:00 07/08/18 17:40 07/09/18 20:00 07/09/18 20:00 Intake and Output: 07/09/18 07/10/18 18:59 06:59 Intake Total 1669 100 Output Total 2400 Balance -731 100 - Medications Medications: Current Medications Albuterol/Ipratropium (Duoneb 3 Mg/0.5 Mg (3 Ml) Ud) 3 ml IH Q2H PRN PRN Reason: Shortness of Breath Last Admin: 07/08/18 16:57 Dose: 3 ml Albuterol/Ipratropium (Duoneb 3 Mg/0.5 Mg (3 Ml) Ud) 3 ml IH [id number] [facility] Last Admin: 07/09/18 20:01 Dose: 3 ml Aspirin (Ecotrin) 81 mg PO DAILY [facility] Last Admin: 07/09/18 09:11 Dose: 81 mg Heparin Sodium (Porcine) (Heparin) 5,000 units SC Q8 [facility]; Protocol Last Admin: 07/09/18 21:51 Dose: 5,000 units Hydromorphone HCl (Dilaudid) 0.5 mg IVP Q4H PRN PRN Reason: Pain, moderate (4-7) Last Admin: 07/09/18 23:09 Dose: 0.5 mg Piperacillin Sod/Tazobactam Sod (Zosyn 3.375 In Ns 100ml) 100 mls @ 25 mls/hr IVPB Q8 [facility]; Protocol Stop: 07/11/18 14:01 Last Admin: 07/09/18 21:52 Dose: 25 mls/hr Propofol (Diprivan) 1,000 mg in 100 mls @ 6.314 mls/hr IV .[id number] PRN; Protocol PRN Reason: TITRATE PER MD ORDER Last Titration: 07/09/18 08:00 Dose: 0 mcg/kg/min, 0 mls/hr Midazolam 100 mg/100ml in NS (Midazolam 100 Mg/100ml In Ns) 100 mg in 100 mls @ 2 mls/hr IV .Q24H PRN; Protocol PRN Reason: Sedation Last Titration: 07/09/18 08:15 Dose: 0 mg/hr, 0 mls/hr Thiamine HCl 300 mg/ Sodium (Chloride) 103 mls @ 206 mls/hr IV DAILY [facility] Last Admin: 07/09/18 09:11 Dose: 206 mls/hr Dexmedetomidine HCl (Precedex 400mcg/100ml) 400 mcg in 100 mls @ 5.33 mls/hr IV .[id number] PRN; Protocol PRN Reason: Sedation Last Admin: 07/09/18 23:08 Dose: 0.2 mcg/kg/hr, 5.33 mls/hr Lisinopril (Zestril) 5 mg PO DAILY [facility] Last Admin: 07/09/18 12:27 Dose: 5 mg Lorazepam (Ativan) 2 mg IVP Q2H PRN; Protocol PRN Reason: Anxiety Last Admin: 07/07/18 23:47 Dose: 2 mg Metoprolol Tartrate (Lopressor) 25 mg PO BID [facility] Last Admin: 07/09/18 18:57 Dose: 25 mg Nicotine (Nicoderm Cq) 1 patch TD DAILY [facility] Last Admin: 07/09/18 09:10 Dose: 1 patch Pantoprazole Sodium (Protonix Inj) 40 mg IVP Q12 [facility] Last Admin: 07/09/18 21:51 Dose: 40 mg Prasugrel (Effient) 10 mg PO DAILY [facility] Last Admin: 07/09/18 09:11 Dose: 10 mg - Labs Labs: 07/09/18 05:20 07/09/18 05:20 PT 12.7 SECONDS (9.4-12.5) H 07/08/18 11:10 INR 1.12 07/08/18 11:10 APTT 27.6 Seconds (26.9-38.3) 07/08/18 11:10 Assessment and Plan - Assessment and Plan (Free Text) Plan: Infectious Diseases Attending Physician Attestation Patient seen and examined at bedside, discussed with medical reviewer. I have reviewed the HPI, ROS, physical examination findings. I have also reviewed the pertinent labs and diagnostic imaging. I have fully participiated in the care of this patient. I agree with the above findings, assessment, plan. In addition, will consider discontinuing antibiotics in the next 24 hours. Overall prognosis is poor. Patient now with tracheostomy but continues to be ventilator-dependent.
[2018-07-09] MEDS ORDERED: DiphenhydrAMINE 50 mg/ml Inj IVP ONE (22:58)
[2018-07-09] MEDS: HYDROmorphone 0.5 mg/0.5 ml ISec IVP PRN (23:09)
[2018-07-10] MEDS: Albuterol-Ipratrop 3 mg / 0.5 (3 ml) UD IH SCH ×4 (01:22→19:28)
[2018-07-10 05:15] LABS: ARTERIAL BLOOD GAS HCO3 25.2 mmol/L (21-28); ARTERIAL BLOOD GAS O2 CAPACITY 17.9 mL/dl (16-24); ARTERIAL BLOOD GAS O2 CONTENT 17.7 ML/dl (15-23); ARTERIAL BLOOD GAS O2 SAT 98.7 % (95-98); ARTERIAL BLOOD GAS PCO2 38 mm/Hg (35-45); ARTERIAL BLOOD GAS PH 7.43 (7.35-7.45); ARTERIAL BLOOD GAS TCO2 26.4 mmol.L (22-28)
[2018-07-10 05:53] LABS: BASO # 0.03 K/mm3 (0.0-2.0); BASO % 0.3 % (0.0-3.0); EOS # 0.3 (0.0-0.7); EOS % 2.5 % (1.5-5.0); HEMOGLOBIN 11.2 g/dL (14.0-18.0); LYMPH # 1.3 (1.2-3.4); MEAN CELL VOLUME 95.1 fl (80.0-105.0); MEAN CORPUSCULAR HEMOGLOBIN 30.7 pg (25.0-35.0); MEAN CORPUSCULAR HGB CONC 32.3 g/dl (31.0-37.0); MEAN PLATELET VOLUME 9.4 fl (7.0-11.0); MONO # 0.8 (0.1-0.6); RBC 3.65 10^6/uL (3.5-6.1); RED CELL DISTRIBUTION WIDTH 14.7 % (11.5-14.5)
[2018-07-10 06:07] LABS: ALB/GLOB RATIO 0.9 (1.1-1.8); ALBUMIN 3.2 g/dL (3.0-4.8); ALT/SGPT 197 U/L (7-56); AST/SGOT 105 U/L (17-59); BLOOD UREA NITROGEN 20 mg/dL (7-21); CALCIUM 8.4 mg/dL (8.4-10.5); GFR NON-AFRICAN AMERICAN > 60
[2018-07-10] MEDS: HYDROmorphone 0.5 mg/0.5 ml ISec IVP PRN (06:18)
[2018-07-10] MEDS: Piperacillin/Tazobact 3.375 gm 100 ML IVPB SCH (06:21)
--- NOTE | 2018-07-10 06:56 | CP.CCUPN ---
<Jaime Cardenas - Last Filed: 07/10/18 13:56> CCU Subjective - Physician Review Subjective (Free Text): Jaime Cardenas DO. Critical Care Progress note Patient seen and examined at bedside, on trach ventilation, sedated on precedex, afebrile with no significant overnight events. CCU Objective - Vital Signs / Intake & Output Vital Signs (Last 4 hours): Vital Signs Pulse BP Pulse Ox 07/10/18 06:00 81 122/61 97 07/10/18 05:00 78 118/69 95 07/10/18 04:00 84 126/60 97 07/10/18 03:00 84 115/55 L 96 Intake and Output (Last 8hrs): Intake & Output 07/09/18 07/09/18 07/10/18 14:59 22:59 06:59 Intake Total 154 1515 1340 Output Total 2400 800 Balance 154 -885 540 Intake: IV 154 575 400 Right Forearm 575 300 Tube Feeding 540 540 Other 400 400 Output: Drainage 0 Bilateral Nare 0 Urine 2400 800 Urethral (Orosco) 2400 800 Emesis 0 Oral Regurgitation 0 Other 0 Other: # Bowel Movements 3 2 - Physical Exam Head: Positive for: Atraumatic, Normocephalic Pupils: Positive for: Sluggish Extroacular Muscles: Positive for: EOMI Conjunctiva: Positive for: Normal Mouth: Positive for: Moist Mucous Membranes Nose (Internal): Positive for: Other (dried blood nticed, packing applied) Neck: Positive for: Normal Range of Motion. Negative for: JVD, Lymphadenopathy Respiratory/Chest: Positive for: Decreased Breath Sounds. Negative for: Wheezes, Rhonchi Cardiovascular: Positive for: Regular Rate and Rhythm, Normal S1, S2. Negative for: Murmurs, Rub, Gallop Abdomen: Positive for: Normal Bowel Sounds. Negative for: Tenderness, Distention, Mass/Organomegaly Back: Positive for: Normal Inspection Upper Extremity: Positive for: Normal Inspection, NORMAL PULSES. Negative for: Cyanosis, Edema Lower Extremity: Positive for: Normal Inspection, NORMAL PULSES. Negative for: Edema, Cyanosis, Swelling, Erythema Neurological: Positive for: Other (GCS =6 [id number]) Skin: Positive for: Warm, Dry, Normal Color. Negative for: Rashes - Medications Active Medications: Active Medications Generic Name Dose Route Start Last Admin Trade Name Freq PRN Reason Stop Dose Admin Albuterol/Ipratropium 3 ml 07/01/18 17:28 07/08/18 16:57 Duoneb 3 Mg/0.5 Mg (3 Ml) Ud IH 3 ml Q2H PRN Administration Shortness of Breath Albuterol/Ipratropium 3 ml 07/04/18 14:00 07/10/18 01:22 Duoneb 3 Mg/0.5 Mg (3 Ml) Ud IH 3 ml [id number] XU Administration Aspirin 81 mg 07/02/18 10:30 07/09/18 09:11 Ecotrin PO 81 mg DAILY XU Administration Heparin Sodium (Porcine) 5,000 units 07/03/18 14:00 07/10/18 06:17 Heparin SC 5,000 units Q8 XU Administration Protocol Hydromorphone HCl 0.5 mg 07/08/18 16:49 07/10/18 06:18 Dilaudid IVP 0.5 mg Q4H PRN Administration Pain, moderate (4-7) Piperacillin Sod/Tazobactam Sod 100 mls @ 25 mls/hr 07/03/18 14:00 07/10/18 06:21 Zosyn 3.375 In Ns 100ml IVPB 07/11/18 14:01 25 mls/hr Q8 XU Administration Protocol Propofol 1,000 mg in 100 mls @ 6.314 mls/hr 07/04/18 18:28 07/09/18 08:00 Diprivan IV 0 mcg/kg/min .[id number] PRN 0 mls/hr TITRATE PER MD ORDER Titration Protocol 10 MCG/KG/MIN Midazolam 100 mg/100ml in NS 100 mg in 100 mls @ 2 mls/hr 07/06/18 07:50 07/09/18 08:15 Midazolam 100 Mg/100ml In Ns IV 0 mg/hr .Q24H PRN 0 mls/hr Sedation Titration Protocol 2 MG/HR Thiamine HCl 300 mg/ Sodium 103 mls @ 206 mls/hr 07/08/18 18:00 07/09/18 09:11 Chloride IV 206 mls/hr DAILY XU Administration Dexmedetomidine HCl 400 mcg in 100 mls @ 5.33 mls/hr 07/09/18 09:12 07/09/18 23:08 Precedex 400mcg/100ml IV 0.2 mcg/kg/hr .[id number] PRN 5.33 mls/hr Sedation Administration Protocol 0.2 MCG/KG/HR Lisinopril 5 mg 07/09/18 12:15 07/09/18 12:27 Zestril PO 5 mg DAILY XU Administration Lorazepam 2 mg 07/01/18 14:13 07/07/18 23:47 Ativan IVP 2 mg Q2H PRN Administration Anxiety Protocol Metoprolol Tartrate 25 mg 07/03/18 12:00 07/09/18 18:57 Lopressor PO 25 mg BID XU Administration Nicotine 1 patch 07/02/18 10:00 07/09/18 09:10 Nicoderm Cq TD 1 patch DAILY XU Administration Pantoprazole Sodium 40 mg 07/01/18 22:00 07/09/18 21:51 Protonix Inj IVP 40 mg Q12 XU Administration Prasugrel 10 mg 07/04/18 10:00 07/09/18 09:11 Effient PO 10 mg DAILY XU Administration - Patient Studies Lab Studies: Lab Studies 07/10/18 07/10/18 07/10/18 Range/Units 05:20 05:20 05:08 WBC 11.0 (4.5-11.0) 10^3/uL RBC 3.65 (3.5-6.1) 10^6/uL Hgb 11.2 L (14.0-18.0) g/dL Hct 34.7 L (42.0-52.0) % MCV 95.1 (80.0-105.0) fl MCH 30.7 (25.0-35.0) pg MCHC 32.3 (31.0-37.0) g/dl RDW 14.7 H (11.5-14.5) % Plt Count 262 (120.0-450.0) 10^3/uL MPV 9.4 (7.0-11.0) fl Neut % (Auto) 78.2 H (50.0-68.0) % Lymph % (Auto) 12.0 L (22.0-35.0) % Swisher % (Auto) 7.0 H (1.0-6.0) % Eos % (Auto) 2.5 (1.5-5.0) % Baso % (Auto) 0.3 (0.0-3.0) % Lymph # (Auto) 1.3 (1.2-3.4) Swisher # (Auto) 0.8 H (0.1-0.6) Eos # (Auto) 0.3 (0.0-0.7) Baso # (Auto) 0.03 (0.0-2.0) K/mm3 Absolute Neuts (auto) 8.60 H (1.4-6.5) pCO2 38 (35-45) mm/Hg pO2 98.0 (80-100) mm/Hg HCO3 25.2 (21-28) mmol/L ABG pH 7.43 (7.35-7.45) ABG Total CO2 26.4 (22-28) mmol.L ABG O2 Saturation 98.7 H (95-98) % ABG O2 Content 17.7 (15-23) ML/dl ABG Base Excess 1.0 (-2.0-3.0) mmol/L ABG Hemoglobin 13.0 (11.7-17.4) g/dL ABG Carboxyhemoglobin 1.5 (0.5-1.5) % POC ABG HHb (Measured) 1.3 (0-5) % ABG Methemoglobin 0.9 (0.0-3.0) % ABG O2 Capacity 17.9 (16-24) mL/dl Hgb O2 Saturation 96.2 (95.0-98.0) % FiO2 50.0 % Sodium 140 (132-148) mmol/L Potassium 4.1 (3.6-5.0) mmol/L Chloride 107 (98-107) mmol/L Carbon Dioxide 25 (21-33) mmol/L Anion Gap 12 (10-20) BUN 20 (7-21) mg/dL Creatinine 0.9 (0.8-1.5) mg/dl Est GFR ( Amer) > 60 Est GFR (Non-Af Amer) > 60 POC Glucose (mg/dL) (65-110) mg/dL Random Glucose 107 (70-110) mg/dL Calcium 8.4 (8.4-10.5) mg/dL Phosphorus 3.8 (2.5-4.5) mg/dL Magnesium 2.2 (1.7-2.2) mg/dL Total Bilirubin 0.5 (0.2-1.3) mg/dL AST 105 H D (17-59) U/L ALT 197 H (7-56) U/L Alkaline Phosphatase 54 (38-126) U/L Total Protein 6.6 (5.8-8.3) g/dL Albumin 3.2 (3.0-4.8) g/dL Globulin 3.4 gm/dL Albumin/Globulin Ratio 0.9 L (1.1-1.8) 07/09/18 07/08/18 Range/Units 05:20 22:14 WBC (4.5-11.0) 10^3/uL RBC (3.5-6.1) 10^6/uL Hgb (14.0-18.0) g/dL Hct (42.0-52.0) % MCV (80.0-105.0) fl MCH (25.0-35.0) pg MCHC (31.0-37.0) g/dl RDW (11.5-14.5) % Plt Count (120.0-450.0) 10^3/uL MPV (7.0-11.0) fl Neut % (Auto) (50.0-68.0) % Lymph % (Auto) (22.0-35.0) % Swisher % (Auto) (1.0-6.0) % Eos % (Auto) (1.5-5.0) % Baso % (Auto) (0.0-3.0) % Lymph # (Auto) (1.2-3.4) Swisher # (Auto) (0.1-0.6) Eos # (Auto) (0.0-0.7) Baso # (Auto) (0.0-2.0) K/mm3 Absolute Neuts (auto) (1.4-6.5) pCO2 (35-45) mm/Hg pO2 (80-100) mm/Hg HCO3 (21-28) mmol/L ABG pH (7.35-7.45) ABG Total CO2 (22-28) mmol.L ABG O2 Saturation (95-98) % ABG O2 Content (15-23) ML/dl ABG Base Excess (-2.0-3.0) mmol/L ABG Hemoglobin (11.7-17.4) g/dL ABG Carboxyhemoglobin (0.5-1.5) % POC ABG HHb (Measured) (0-5) % ABG Methemoglobin (0.0-3.0) % ABG O2 Capacity (16-24) mL/dl Hgb O2 Saturation (95.0-98.0) % FiO2 % Sodium 140 (132-148) mmol/L Potassium 3.9 (3.6-5.0) mmol/L Chloride 106 (98-107) mmol/L Carbon Dioxide 28 (21-33) mmol/L Anion Gap 10 (10-20) BUN 17 (7-21) mg/dL Creatinine 0.8 (0.8-1.5) mg/dl Est GFR ( Amer) > 60 Est GFR (Non-Af Amer) > 60 POC Glucose (mg/dL) 101 (65-110) mg/dL Random Glucose 145 H (70-110) mg/dL Calcium 8.5 (8.4-10.5) mg/dL Phosphorus 2.6 (2.5-4.5) mg/dL Magnesium 2.3 H (1.7-2.2) mg/dL Total Bilirubin 0.4 (0.2-1.3) mg/dL AST 143 H (17-59) U/L ALT 213 H (7-56) U/L Alkaline Phosphatase 52 (38-126) U/L Total Protein 6.4 (5.8-8.3) g/dL Albumin 3.1 (3.0-4.8) g/dL Globulin 3.3 gm/dL Albumin/Globulin Ratio 1.0 L (1.1-1.8) Laboratory Results - last 24 hr 07/08/18 07/09/18 07/10/18 22:14 05:20 05:08 WBC RBC Hgb Hct MCV MCH MCHC RDW Plt Count MPV Neut % (Auto) Lymph % (Auto) Swisher % (Auto) Eos % (Auto) Baso % (Auto) Lymph # (Auto) Swisher # (Auto) Eos # (Auto) Baso # (Auto) Absolute Neuts (auto) pCO2 38 pO2 98.0 HCO3 25.2 ABG pH 7.43 ABG Total CO2 26.4 ABG O2 Saturation 98.7 H ABG O2 Content 17.7 ABG Base Excess 1.0 ABG Hemoglobin 13.0 ABG Carboxyhemoglobin 1.5 POC ABG HHb (Measured) 1.3 ABG Methemoglobin 0.9 ABG O2 Capacity 17.9 Hgb O2 Saturation 96.2 FiO2 50.0 Sodium 140 Potassium 3.9 Chloride 106 Carbon Dioxide 28 Anion Gap 10 BUN 17 Creatinine 0.8 Est GFR ( Amer) > 60 Est GFR (Non-Af Amer) > 60 POC Glucose (mg/dL) 101 Random Glucose 145 H Calcium 8.5 Phosphorus 2.6 Magnesium 2.3 H Total Bilirubin 0.4 AST 143 H ALT 213 H Alkaline Phosphatase 52 Total Protein 6.4 Albumin 3.1 Globulin 3.3 Albumin/Globulin Ratio 1.0 L 07/10/18 07/10/18 05:20 05:20 WBC 11.0 RBC 3.65 Hgb 11.2 L Hct 34.7 L MCV 95.1 MCH 30.7 MCHC 32.3 RDW 14.7 H Plt Count 262 MPV 9.4 Neut % (Auto) 78.2 H Lymph % (Auto) 12.0 L Swisher % (Auto) 7.0 H Eos % (Auto) 2.5 Baso % (Auto) 0.3 Lymph # (Auto) 1.3 Swisher # (Auto) 0.8 H Eos # (Auto) 0.3 Baso # (Auto) 0.03 Absolute Neuts (auto) 8.60 H pCO2 pO2 HCO3 ABG pH ABG Total CO2 ABG O2 Saturation ABG O2 Content ABG Base Excess ABG Hemoglobin ABG Carboxyhemoglobin POC ABG HHb (Measured) ABG Methemoglobin ABG O2 Capacity Hgb O2 Saturation FiO2 Sodium 140 Potassium 4.1 Chloride 107 Carbon Dioxide 25 Anion Gap 12 BUN 20 Creatinine 0.9 Est GFR ( Amer) > 60 Est GFR (Non-Af Amer) > 60 POC Glucose (mg/dL) Random Glucose 107 Calcium 8.4 Phosphorus 3.8 Magnesium 2.2 Total Bilirubin 0.5 AST 105 H D ALT 197 H Alkaline Phosphatase 54 Total Protein 6.6 Albumin 3.2 Globulin 3.4 Albumin/Globulin Ratio 0.9 L Fingerstick Blood Sugar Results: 101 Review of Systems - Review of Systems Systems not reviewed;Unavailable: Altered Mental Status Critical Care Progress Note - Ventilator Checklist Head of Bed 30 Degrees: Yes Daily Sedation Vacation: Yes Daily Assessment of Readiness to Wean: Yes Daily Spontaneous Breathing Trial: Yes PUD Prophalyxis: Yes DVT Prophylaxis: Yes Oral Care with Chlorhexidine Gluconate {CHG}: Yes - Vent Settings MODE:: PRESSURE SUPPORT FIO2:: 50 PEEP:: 5 PRESSURE SUPPORT:: 5 - Extremities/Vascular Does the Patient have a Central Venous Catheter?: No Does the Patient have a Orosco Catheter?: Yes Catheter Insertion Criteria: Patient has acute urinary retention or bladder outlet obstruction - Prophylaxis GI Prophylaxis GI: PPI - Prophylaxis DVT Prophylaxis DVT: Heparin SQ Assessment/Plan - Assessment and Plan (Free Text) Assessment: 53 y/o male admitted to ICU s/p VFib cardiac arrest with subsequent PCI with RCA stent placed. He sustained anoxic cerebral injury with diffuse cerebral edema requiring intubation. Now on trach ventelation and sedated on precedex Plan: Neuro: -anoxic brain injury in the setting of VFib cardiac arrest with subsequent multiple defibrillation then PCI and RCA ANALISA placement -GCS=6 [id number] -on precedex -hypothermic protocol not initiated on admission to ICU due to epistaxis and hemoptysis at that time -CT head: no ICH, diffuse cerebral edema -Video EEG: no seizure activity. Severe slowing/attenuation -continue ativan prn -continue thiamine 300 for neurocognitive activation as per neuro -neuro following, Dr King -heavy smoker. nicotine patch 21 mg/24 hr -maintain normothermia Cardio: -cardiac arrest due to VFib s/p PCI with RCA ANALISA -continue asa, effient, lisinopril, lopressor -statins held due to elevated LFT -maintain BP 130-140s/70-80s. MAP>65 -Echo: LVEF 45% LVH with hypokinesis, mild pulm HTN -cardiology following Pulm: -ventilator dependent respiratory failure. s/p tracheostomy (07/08) -on PS/CPAP PEEP5/50% -mouth hygeine, DVT/GI ppx, head elevation 30 degree, sedation vacation -COPD, chronic smoker, duonebs xu and prn -maintain O2>92% GI: -transaminitis likely due to shock liver in the setting of cardiac arrest -LFT fluctuating -patient alcoholic, obese -hepatitis panel negative -U/S abdomen: fibro/fatty liver infiltration -continue NG enteral feeding -as per GI note: continue NG feeding for one month then re-evaluate for possible PEG placement since this's a high risk procedure and not an emergency. Effient would need to be held up to 7 days before PEG could be placed. Renal: -rhabdomyolysis improved -replete lytes as needed -UOP 3200 last 24 hours -hold IVF -maintain euvolemia, euglycemia -UDS positive for amphetamine, benzo ID: -afebrile last night. 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 to LTACH facility in [place] Case reviewed and plan discussed with attending physician Dr Janeth Kim <Satinder Kim - Last Filed: 07/10/18 17:20> CCU Objective - Vital Signs / Intake & Output Vital Signs (Last 4 hours): Vital Signs Pulse 07/10/18 14:00 69 Intake and Output (Last 8hrs): Intake & Output 07/10/18 07/10/18 07/10/18 06:59 14:59 22:59 Intake Total 1340 Output Total 800 Balance 540 Intake: IV 400 Right Forearm 300 Tube Feeding 540 Other 400 Output: Drainage 0 Bilateral Nare 0 Urine 800 Urethral (Orosco) 800 Emesis 0 Oral Regurgitation 0 Other 0 Other: # Bowel Movements 2 - Medications Active Medications: Active Medications Generic Name Dose Route Start Last Admin Trade Name Freq PRN Reason Stop Dose Admin Albuterol/Ipratropium 3 ml 07/01/18 17:28 07/08/18 16:57 Duoneb 3 Mg/0.5 Mg (3 Ml) Ud IH 3 ml Q2H PRN Administration Shortness of Breath Albuterol/Ipratropium 3 ml 07/04/18 14:00 07/10/18 13:20 Duoneb 3 Mg/0.5 Mg (3 Ml) Ud IH 3 ml [id number] XU Administration Aspirin 81 mg 07/02/18 10:30 07/10/18 10:05 Ecotrin PO 81 mg DAILY XU Administration Heparin Sodium (Porcine) 5,000 units 07/03/18 14:00 07/10/18 14:00 Heparin SC 5,000 units Q8 XU Administration Protocol Hydromorphone HCl 0.5 mg 07/08/18 16:49 07/10/18 06:18 Dilaudid IVP 0.5 mg Q4H PRN Administration Pain, moderate (4-7) Propofol 1,000 mg in 100 mls @ 6.314 mls/hr 07/04/18 18:28 07/09/18 08:00 Diprivan IV 0 mcg/kg/min .[id number] PRN 0 mls/hr TITRATE PER MD ORDER Titration Protocol 10 MCG/KG/MIN Midazolam 100 mg/100ml in NS 100 mg in 100 mls @ 2 mls/hr 07/06/18 07:50 07/09/18 08:15 Midazolam 100 Mg/100ml In Ns IV 0 mg/hr .Q24H PRN 0 mls/hr Sedation Titration Protocol 2 MG/HR Thiamine HCl 300 mg/ Sodium 103 mls @ 206 mls/hr 07/08/18 18:00 07/10/18 10:36 Chloride IV 206 mls/hr DAILY XU Administration Dexmedetomidine HCl 400 mcg in 100 mls @ 5.33 mls/hr 07/09/18 09:12 07/09/18 23:08 Precedex 400mcg/100ml IV 0.2 mcg/kg/hr .[id number] PRN 5.33 mls/hr Sedation Administration Protocol 0.2 MCG/KG/HR Lisinopril 5 mg 07/09/18 12:15 07/10/18 10:04 Zestril PO 5 mg DAILY XU Administration Lorazepam 2 mg 07/01/18 14:13 07/07/18 23:47 Ativan IVP 2 mg Q2H PRN Administration Anxiety Protocol Metoprolol Tartrate 25 mg 07/03/18 12:00 07/10/18 10:04 Lopressor PO 25 mg BID XU Administration Nicotine 1 patch 07/02/18 10:00 07/10/18 10:05 Nicoderm Cq TD 1 patch DAILY XU Administration Pantoprazole Sodium 40 mg 07/01/18 22:00 07/10/18 10:37 Protonix Inj IVP 40 mg Q12 XU Administration Prasugrel 10 mg 07/04/18 10:00 07/10/18 10:04 Effient PO 10 mg DAILY XU Administration - Patient Studies Lab Studies: Lab Studies 07/10/18 07/10/18 07/10/18 Range/Units 13:24 07:51 05:20 WBC (4.5-11.0) 10^3/uL RBC (3.5-6.1) 10^6/uL Hgb (14.0-18.0) g/dL Hct (42.0-52.0) % MCV (80.0-105.0) fl MCH (25.0-35.0) pg MCHC (31.0-37.0) g/dl RDW (11.5-14.5) % Plt Count (120.0-450.0) 10^3/uL MPV (7.0-11.0) fl Neut % (Auto) (50.0-68.0) % Lymph % (Auto) (22.0-35.0) % Swisher % (Auto) (1.0-6.0) % Eos % (Auto) (1.5-5.0) % Baso % (Auto) (0.0-3.0) % Lymph # (Auto) (1.2-3.4) Swisher # (Auto) (0.1-0.6) Eos # (Auto) (0.0-0.7) Baso # (Auto) (0.0-2.0) K/mm3 Absolute Neuts (auto) (1.4-6.5) pCO2 (35-45) mm/Hg pO2 (80-100) mm/Hg HCO3 (21-28) mmol/L ABG pH (7.35-7.45) ABG Total CO2 (22-28) mmol.L ABG O2 Saturation (95-98) % ABG O2 Content (15-23) ML/dl ABG Base Excess (-2.0-3.0) mmol/L ABG Hemoglobin (11.7-17.4) g/dL ABG Carboxyhemoglobin (0.5-1.5) % POC ABG HHb (Measured) (0-5) % ABG Methemoglobin (0.0-3.0) % ABG O2 Capacity (16-24) mL/dl Hgb O2 Saturation (95.0-98.0) % FiO2 % Sodium 140 (132-148) mmol/L Potassium 4.1 (3.6-5.0) mmol/L Chloride 107 (98-107) mmol/L Carbon Dioxide 25 (21-33) mmol/L Anion Gap 12 (10-20) BUN 20 (7-21) mg/dL Creatinine 0.9 (0.8-1.5) mg/dl Est GFR ( Amer) > 60 Est GFR (Non-Af Amer) > 60 POC Glucose (mg/dL) 158 H 146 H (65-110) mg/dL Random Glucose 107 (70-110) mg/dL Calcium 8.4 (8.4-10.5) mg/dL Phosphorus 3.8 (2.5-4.5) mg/dL Magnesium 2.2 (1.7-2.2) mg/dL Total Bilirubin 0.5 (0.2-1.3) mg/dL AST 105 H D (17-59) U/L ALT 197 H (7-56) U/L Alkaline Phosphatase 54 (38-126) U/L Total Protein 6.6 (5.8-8.3) g/dL Albumin 3.2 (3.0-4.8) g/dL Globulin 3.4 gm/dL Albumin/Globulin Ratio 0.9 L (1.1-1.8) 07/10/18 07/10/18 Range/Units 05:20 05:08 WBC 11.0 (4.5-11.0) 10^3/uL RBC 3.65 (3.5-6.1) 10^6/uL Hgb 11.2 L (14.0-18.0) g/dL Hct 34.7 L (42.0-52.0) % MCV 95.1 (80.0-105.0) fl MCH 30.7 (25.0-35.0) pg MCHC 32.3 (31.0-37.0) g/dl RDW 14.7 H (11.5-14.5) % Plt Count 262 (120.0-450.0) 10^3/uL MPV 9.4 (7.0-11.0) fl Neut % (Auto) 78.2 H (50.0-68.0) % Lymph % (Auto) 12.0 L (22.0-35.0) % Swisher % (Auto) 7.0 H (1.0-6.0) % Eos % (Auto) 2.5 (1.5-5.0) % Baso % (Auto) 0.3 (0.0-3.0) % Lymph # (Auto) 1.3 (1.2-3.4) Swisher # (Auto) 0.8 H (0.1-0.6) Eos # (Auto) 0.3 (0.0-0.7) Baso # (Auto) 0.03 (0.0-2.0) K/mm3 Absolute Neuts (auto) 8.60 H (1.4-6.5) pCO2 38 (35-45) mm/Hg pO2 98.0 (80-100) mm/Hg HCO3 25.2 (21-28) mmol/L ABG pH 7.43 (7.35-7.45) ABG Total CO2 26.4 (22-28) mmol.L ABG O2 Saturation 98.7 H (95-98) % ABG O2 Content 17.7 (15-23) ML/dl ABG Base Excess 1.0 (-2.0-3.0) mmol/L ABG Hemoglobin 13.0 (11.7-17.4) g/dL ABG Carboxyhemoglobin 1.5 (0.5-1.5) % POC ABG HHb (Measured) 1.3 (0-5) % ABG Methemoglobin 0.9 (0.0-3.0) % ABG O2 Capacity 17.9 (16-24) mL/dl Hgb O2 Saturation 96.2 (95.0-98.0) % FiO2 50.0 % Sodium (132-148) mmol/L Potassium (3.6-5.0) mmol/L Chloride (98-107) mmol/L Carbon Dioxide (21-33) mmol/L Anion Gap (10-20) BUN (7-21) mg/dL Creatinine (0.8-1.5) mg/dl Est GFR ( Amer) Est GFR (Non-Af Amer) POC Glucose (mg/dL) (65-110) mg/dL Random Glucose (70-110) mg/dL Calcium (8.4-10.5) mg/dL Phosphorus (2.5-4.5) mg/dL Magnesium (1.7-2.2) mg/dL Total Bilirubin (0.2-1.3) mg/dL AST (17-59) U/L ALT (7-56) U/L Alkaline Phosphatase (38-126) U/L Total Protein (5.8-8.3) g/dL Albumin (3.0-4.8) g/dL Globulin gm/dL Albumin/Globulin Ratio (1.1-1.8) Laboratory Results - last 24 hr 07/10/18 07/10/18 07/10/18 05:08 05:20 05:20 WBC 11.0 RBC 3.65 Hgb 11.2 L Hct 34.7 L MCV 95.1 MCH 30.7 MCHC 32.3 RDW 14.7 H Plt Count 262 MPV 9.4 Neut % (Auto) 78.2 H Lymph % (Auto) 12.0 L Swisher % (Auto) 7.0 H Eos % (Auto) 2.5 Baso % (Auto) 0.3 Lymph # (Auto) 1.3 Swisher # (Auto) 0.8 H Eos # (Auto) 0.3 Baso # (Auto) 0.03 Absolute Neuts (auto) 8.60 H pCO2 38 pO2 98.0 HCO3 25.2 ABG pH 7.43 ABG Total CO2 26.4 ABG O2 Saturation 98.7 H ABG O2 Content 17.7 ABG Base Excess 1.0 ABG Hemoglobin 13.0 ABG Carboxyhemoglobin 1.5 POC ABG HHb (Measured) 1.3 ABG Methemoglobin 0.9 ABG O2 Capacity 17.9 Hgb O2 Saturation 96.2 FiO2 50.0 Sodium 140 Potassium 4.1 Chloride 107 Carbon Dioxide 25 Anion Gap 12 BUN 20 Creatinine 0.9 Est GFR ( Amer) > 60 Est GFR (Non-Af Amer) > 60 POC Glucose (mg/dL) Random Glucose 107 Calcium 8.4 Phosphorus 3.8 Magnesium 2.2 Total Bilirubin 0.5 AST 105 H D ALT 197 H Alkaline Phosphatase 54 Total Protein 6.6 Albumin 3.2 Globulin 3.4 Albumin/Globulin Ratio 0.9 L 07/10/18 07/10/18 07:51 13:24 WBC RBC Hgb Hct MCV MCH MCHC RDW Plt Count MPV Neut % (Auto) Lymph % (Auto) Swisher % (Auto) Eos % (Auto) Baso % (Auto) Lymph # (Auto) Swisher # (Auto) Eos # (Auto) Baso # (Auto) Absolute Neuts (auto) pCO2 pO2 HCO3 ABG pH ABG Total CO2 ABG O2 Saturation ABG O2 Content ABG Base Excess ABG Hemoglobin ABG Carboxyhemoglobin POC ABG HHb (Measured) ABG Methemoglobin ABG O2 Capacity Hgb O2 Saturation FiO2 Sodium Potassium Chloride Carbon Dioxide Anion Gap BUN Creatinine Est GFR ( Amer) Est GFR (Non-Af Amer) POC Glucose (mg/dL) 146 H 158 H Random Glucose Calcium Phosphorus Magnesium Total Bilirubin AST ALT Alkaline Phosphatase Total Protein Albumin Globulin Albumin/Globulin Ratio Addendum Addendum: 07/10/18 17:18 MICU Attending addendum Patient seen and examined on rounds with resident, agree with note with following additions/exceptions: 53M with obesity, polysubstance abuse, EtOH abuse, HTN, smoker s/p Vfib arrest s/p PCI with RCA stent Syncope HTN VFIB arrest s/p ROSC s/p PCI CAD anoxic brain injury Resp failure Patient has remained x 2 days no overnight events no signs of sepsis likely has significant degree of anoxic injury s/p trach 07/09 Recommend: cont PS via trach plan to trial trach collar possibly in the next day or so duonebs PRN, would stop abx On ASA, Statin, Prasugrel for stent holding statin given transmainities which improved today trend LFTs s f/u Neuro rec and cardio rec PPI GI ppx hepSQ DVT ppx Dispo: will likely need PEG soon and SERGIO Kim MICU Attending
--- NOTE | 2018-07-10 07:47 | CP.PCM.PN ---
Subjective - Date & Time of Evaluation Date of Evaluation: 07/10/18 Time of Evaluation: 06:30 - Subjective Subjective: Co-Signed order for Benadryl 25 mg IV which was ordered by resident physician. It was ordered for rash on the back. Patient is awake. Medical record was reviewed. 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 s/p cardiac arrest in ultra sound department. S/P IABP NSTEMI Respiratory failure. RCA blockade-100%. S/p intubation. S/p tracheostomy. Now on CPAP H & H-11.2/34.7 Coag-12.7/1.12/27.6 ABG-7.43/38/98/25.2 on 50% CPAP CHEM:AST/KRY862/197. Urine -blood moderate.RBC-15-20 Urine Drug screen- Positive for amphetamine, benzodiazepine. Sputm gram stai staph aureus Blood culture- no growth. Has PMH: HTN Obesity-35.7 kg/m2. Heavy smoker. Alcohol abuse. is on Ativan 2 mg IV Q2H prn. Dilaudid 0.5 mg AIV Q4H prn Diprivan prn. Duoneb 3ml Q2H PRN Duoneb 3ml Q6H XU ASA 81 mg PO daily xu Effient 10 mg PO daily XU Hepari 5000 Units SC Q8H XU Lopressor 25 mg PO BID XU Versed drip prn Nocotine 1 patch TD daily XU Precedex drip @ 0.2 mcg /Kg/hr. Protonix 40 mg IVP Q12H XU Thiamine 300 mg in saline 206 ml / hr Daily XU Lisinopril 5 mg PO Daily XU Objective - Vital Signs/Intake and Output Vital Signs (last 24 hours): Temp Pulse Resp BP Pulse Ox 99.5 F 81 18 122/61 97 07/09/18 12:00 07/10/18 06:00 07/10/18 01:52 07/10/18 06:00 07/10/18 06:00 Intake and Output: 07/10/18 07/10/18 06:59 18:59 Intake Total 1340 Output Total 800 Balance 540 - Medications Medications: Current Medications Albuterol/Ipratropium (Duoneb 3 Mg/0.5 Mg (3 Ml) Ud) 3 ml IH Q2H PRN PRN Reason: Shortness of Breath Last Admin: 07/08/18 16:57 Dose: 3 ml Albuterol/Ipratropium (Duoneb 3 Mg/0.5 Mg (3 Ml) Ud) 3 ml IH [id number] [facility] Last Admin: 07/10/18 07:23 Dose: 3 ml Aspirin (Ecotrin) 81 mg PO DAILY [facility] Last Admin: 07/09/18 09:11 Dose: 81 mg Heparin Sodium (Porcine) (Heparin) 5,000 units SC Q8 XU; Protocol Last Admin: 07/10/18 06:17 Dose: 5,000 units Hydromorphone HCl (Dilaudid) 0.5 mg IVP Q4H PRN PRN Reason: Pain, moderate (4-7) Last Admin: 07/10/18 06:18 Dose: 0.5 mg Piperacillin Sod/Tazobactam Sod (Zosyn 3.375 In Ns 100ml) 100 mls @ 25 mls/hr IVPB Q8 [facility]; Protocol Stop: 07/11/18 14:01 Last Admin: 07/10/18 06:21 Dose: 25 mls/hr Propofol (Diprivan) 1,000 mg in 100 mls @ 6.314 mls/hr IV .[id number] PRN; Protocol PRN Reason: TITRATE PER MD ORDER Last Titration: 07/09/18 08:00 Dose: 0 mcg/kg/min, 0 mls/hr Midazolam 100 mg/100ml in NS (Midazolam 100 Mg/100ml In Ns) 100 mg in 100 mls @ 2 mls/hr IV .Q24H PRN; Protocol PRN Reason: Sedation Last Titration: 07/09/18 08:15 Dose: 0 mg/hr, 0 mls/hr Thiamine HCl 300 mg/ Sodium (Chloride) 103 mls @ 206 mls/hr IV DAILY [facility] Last Admin: 07/09/18 09:11 Dose: 206 mls/hr Dexmedetomidine HCl (Precedex 400mcg/100ml) 400 mcg in 100 mls @ 5.33 mls/hr IV .[id number] PRN; Protocol PRN Reason: Sedation Last Admin: 07/09/18 23:08 Dose: 0.2 mcg/kg/hr, 5.33 mls/hr Lisinopril (Zestril) 5 mg PO DAILY [facility] Last Admin: 07/09/18 12:27 Dose: 5 mg Lorazepam (Ativan) 2 mg IVP Q2H PRN; Protocol PRN Reason: Anxiety Last Admin: 07/07/18 23:47 Dose: 2 mg Metoprolol Tartrate (Lopressor) 25 mg PO BID [facility] Last Admin: 07/09/18 18:57 Dose: 25 mg Nicotine (Nicoderm Cq) 1 patch TD DAILY [facility] Last Admin: 07/09/18 09:10 Dose: 1 patch Pantoprazole Sodium (Protonix Inj) 40 mg IVP Q12 [facility] Last Admin: 07/09/18 21:51 Dose: 40 mg Prasugrel (Effient) 10 mg PO DAILY [facility] Last Admin: 07/09/18 09:11 Dose: 10 mg - Labs Labs: 07/10/18 05:20 07/10/18 05:20 PT 12.7 SECONDS (9.4-12.5) H 07/08/18 11:10 INR 1.12 07/08/18 11:10 APTT 27.6 Seconds (26.9-38.3) 07/08/18 11:10 - Constitutional Appears: No Acute Distress - Head Exam Head Exam: ATRAUMATIC, NORMAL INSPECTION, NORMOCEPHALIC - Eye Exam Eye Exam: Normal appearance - ENT Exam Additional comments: Trach + - Neck Exam Neck Exam: Normal Inspection - Respiratory Exam Respiratory Exam: NORMAL BREATHING PATTERN - Cardiovascular Exam Cardiovascular Exam: REGULAR RHYTHM. absent: JVD - GI/Abdominal Exam GI & Abdominal Exam: absent: Distended - Rectal Exam Rectal Exam: Deferred - Exam Additional comments: Deferred. - Extremities Exam Extremities Exam: Normal Inspection - Back Exam Back Exam: rash noted Additional comments: sparse rash in both inguinal region also. - Neurological Exam Neurological Exam: Alert, Awake - Psychiatric Exam Psychiatric exam: Normal Mood - Skin Skin Exam: Rash (as above.) Assessment and Plan - Assessment and Plan (Free Text) Assessment: S/P cardiac arrest in ultra sound department. S/P IABP NSTEMI Respiratory failure. RCA blockade-100%. S/P intubation. S/P tracheostomy. HTN Obesity-35.7 kg/m2. Heavy smoker. Alcohol abuse. Plan: Benadryl 25 mg IV was given Continue present management.
--- NOTE | 2018-07-10 10:18 | CP.PCM.PN ---
<Nic Bae - Last Filed: 07/10/18 10:15> Subjective - Date & Time of Evaluation Date of Evaluation: 07/10/18 Time of Evaluation: 06:55 - Subjective Subjective: Nic Bae D.O. PGY-3, Internal Medicine Resident, Infectious Disease Progress Note 53-year-old male with a past medical history alcohol abuse, obesity, hypertension, and tobacco abuse who presented to [facility] for complaints of a syncopal episode. Patient was found to have an elevated troponin but refused a cardiac catheterization. Patient suffered cardiac arrest while in ultrasound, V. fib, and was subsequently taken to the Chief Resource Officer with stenting of the RCA and placement of intra-aortic balloon pump. Infectious disease was consulted for sepsis. Patient was seen and examined at bedside. Per nursing has been moving extremities more. Not responsive during exam however. Objective - Vital Signs/Intake and Output Vital Signs (last 24 hours): Temp Pulse Resp BP Pulse Ox 99.5 F 79 18 120/67 97 07/09/18 12:00 07/10/18 10:04 07/10/18 01:52 07/10/18 10:04 07/10/18 06:00 Intake and Output: 07/10/18 07/10/18 06:59 18:59 Intake Total 1340 Output Total 800 Balance 540 - Medications Medications: Current Medications Albuterol/Ipratropium (Duoneb 3 Mg/0.5 Mg (3 Ml) Ud) 3 ml IH Q2H PRN PRN Reason: Shortness of Breath Last Admin: 07/08/18 16:57 Dose: 3 ml Albuterol/Ipratropium (Duoneb 3 Mg/0.5 Mg (3 Ml) Ud) 3 ml IH [id number] [facility] Last Admin: 07/10/18 07:23 Dose: 3 ml Aspirin (Ecotrin) 81 mg PO DAILY [facility] Last Admin: 07/10/18 10:05 Dose: 81 mg Heparin Sodium (Porcine) (Heparin) 5,000 units SC Q8 [facility]; Protocol Last Admin: 07/10/18 06:17 Dose: 5,000 units Hydromorphone HCl (Dilaudid) 0.5 mg IVP Q4H PRN PRN Reason: Pain, moderate (4-7) Last Admin: 07/10/18 06:18 Dose: 0.5 mg Piperacillin Sod/Tazobactam Sod (Zosyn 3.375 In Ns 100ml) 100 mls @ 25 mls/hr IVPB Q8 [facility]; Protocol Stop: 07/11/18 14:01 Last Admin: 07/10/18 06:21 Dose: 25 mls/hr Propofol (Diprivan) 1,000 mg in 100 mls @ 6.314 mls/hr IV .[id number] PRN; Protocol PRN Reason: TITRATE PER MD ORDER Last Titration: 07/09/18 08:00 Dose: 0 mcg/kg/min, 0 mls/hr Midazolam 100 mg/100ml in NS (Midazolam 100 Mg/100ml In Ns) 100 mg in 100 mls @ 2 mls/hr IV .Q24H PRN; Protocol PRN Reason: Sedation Last Titration: 07/09/18 08:15 Dose: 0 mg/hr, 0 mls/hr Thiamine HCl 300 mg/ Sodium (Chloride) 103 mls @ 206 mls/hr IV DAILY [facility] Last Admin: 07/09/18 09:11 Dose: 206 mls/hr Dexmedetomidine HCl (Precedex 400mcg/100ml) 400 mcg in 100 mls @ 5.33 mls/hr IV .[id number] PRN; Protocol PRN Reason: Sedation Last Admin: 07/09/18 23:08 Dose: 0.2 mcg/kg/hr, 5.33 mls/hr Lisinopril (Zestril) 5 mg PO DAILY [facility] Last Admin: 07/10/18 10:04 Dose: 5 mg Lorazepam (Ativan) 2 mg IVP Q2H PRN; Protocol PRN Reason: Anxiety Last Admin: 07/07/18 23:47 Dose: 2 mg Metoprolol Tartrate (Lopressor) 25 mg PO BID [facility] Last Admin: 07/10/18 10:04 Dose: 25 mg Nicotine (Nicoderm Cq) 1 patch TD DAILY [facility] Last Admin: 07/10/18 10:05 Dose: 1 patch Pantoprazole Sodium (Protonix Inj) 40 mg IVP Q12 [facility] Last Admin: 07/09/18 21:51 Dose: 40 mg Prasugrel (Effient) 10 mg PO DAILY [facility] Last Admin: 07/10/18 10:04 Dose: 10 mg - Labs Labs: 07/10/18 05:20 07/10/18 05:20 PT 12.7 SECONDS (9.4-12.5) H 07/08/18 11:10 INR 1.12 07/08/18 11:10 APTT 27.6 Seconds (26.9-38.3) 07/08/18 11:10 - Constitutional Appears: No Acute Distress, intubated male - Head Exam Head Exam: NORMOCEPHALIC - Eye Exam Eye Exam: absent: Scleral icterus - ENT Exam ENT Exam: Mucous Membranes Moist - Neck Exam Neck exam: trach in place - Respiratory Exam Respiratory Exam: Clear to Auscultation Bilateral. absent: Rales, Rhonchi, Wheezes - Cardiovascular Exam Cardiovascular Exam: RRR, +S1, +S2. absent: Gallop, Rubs - GI/Abdominal Exam GI & Abdominal Exam: Normal Bowel Sounds, Soft. absent: Distended, Tenderness - Extremities Exam Extremities exam: Negative for: calf tenderness, pedal edema - Neurological Exam Additional comments: appears awake but is not alert, has spontaneous movements at times that appear anoxic, but per nursing sometimes are purposeful - Skin Skin Exam: Dry, Warm Assessment and Plan - Assessment and Plan (Free Text) Assessment: 53-year-old male with a past medical history alcohol abuse, obesity, hypertension, and tobacco abuse who presented to [facility] for complaints of a syncopal episode. Patient was found to have an elevated troponin but refused a cardiac catheterization. Patient suffered cardiac arrest while in ultrasound, V. fib, and was subsequently taken to the Chief Resource Officer with stenting of the RCA and placement of intra-aortic balloon pump. Infectious disease was consulted for sepsis. Plan: Sepsis from aspiration pneumonia with MSSA Ventilator dependent respiratory failure Transaminitis Anoxic brain injury Cardiac arrest CAD status post PCI Hypertension Tobacco abuse Has been afebrile and without no leukocytosis Has received a total of 9 days of zosyn including today so we will stop abx and monitor GI and ICU notes reviewed and appreciated We will follow with you Patient was seen and examined and case to be discussed with attending physician. Thank you for the pleasure of participating in the care of this interesting patient. <Colton Mcihelle - Last Filed: 07/10/18 11:15> Objective - Vital Signs/Intake and Output Vital Signs (last 24 hours): Temp Pulse Resp BP Pulse Ox 99.5 F 79 18 120/67 97 07/09/18 12:00 07/10/18 10:04 07/10/18 01:52 07/10/18 10:04 07/10/18 06:00 Intake and Output: 07/10/18 07/10/18 06:59 18:59 Intake Total 1340 Output Total 800 Balance 540 - Medications Medications: Current Medications Albuterol/Ipratropium (Duoneb 3 Mg/0.5 Mg (3 Ml) Ud) 3 ml IH Q2H PRN PRN Reason: Shortness of Breath Last Admin: 07/08/18 16:57 Dose: 3 ml Albuterol/Ipratropium (Duoneb 3 Mg/0.5 Mg (3 Ml) Ud) 3 ml IH [id number] [facility] Last Admin: 07/10/18 07:23 Dose: 3 ml Aspirin (Ecotrin) 81 mg PO DAILY [facility] Last Admin: 07/10/18 10:05 Dose: 81 mg Heparin Sodium (Porcine) (Heparin) 5,000 units SC Q8 [facility]; Protocol Last Admin: 07/10/18 06:17 Dose: 5,000 units Hydromorphone HCl (Dilaudid) 0.5 mg IVP Q4H PRN PRN Reason: Pain, moderate (4-7) Last Admin: 07/10/18 06:18 Dose: 0.5 mg Propofol (Diprivan) 1,000 mg in 100 mls @ 6.314 mls/hr IV .[id number] PRN; Protocol PRN Reason: TITRATE PER MD ORDER Last Titration: 07/09/18 08:00 Dose: 0 mcg/kg/min, 0 mls/hr Midazolam 100 mg/100ml in NS (Midazolam 100 Mg/100ml In Ns) 100 mg in 100 mls @ 2 mls/hr IV .Q24H PRN; Protocol PRN Reason: Sedation Last Titration: 07/09/18 08:15 Dose: 0 mg/hr, 0 mls/hr Thiamine HCl 300 mg/ Sodium (Chloride) 103 mls @ 206 mls/hr IV DAILY [facility] Last Admin: 07/10/18 10:36 Dose: 206 mls/hr Dexmedetomidine HCl (Precedex 400mcg/100ml) 400 mcg in 100 mls @ 5.33 mls/hr IV .[id number] PRN; Protocol PRN Reason: Sedation Last Admin: 07/09/18 23:08 Dose: 0.2 mcg/kg/hr, 5.33 mls/hr Lisinopril (Zestril) 5 mg PO DAILY [facility] Last Admin: 07/10/18 10:04 Dose: 5 mg Lorazepam (Ativan) 2 mg IVP Q2H PRN; Protocol PRN Reason: Anxiety Last Admin: 07/07/18 23:47 Dose: 2 mg Metoprolol Tartrate (Lopressor) 25 mg PO BID [facility] Last Admin: 07/10/18 10:04 Dose: 25 mg Nicotine (Nicoderm Cq) 1 patch TD DAILY [facility] Last Admin: 07/10/18 10:05 Dose: 1 patch Pantoprazole Sodium (Protonix Inj) 40 mg IVP Q12 [facility] Last Admin: 07/10/18 10:37 Dose: 40 mg Prasugrel (Effient) 10 mg PO DAILY [facility] Last Admin: 07/10/18 10:04 Dose: 10 mg - Labs Labs: 07/10/18 05:20 07/10/18 05:20 PT 12.7 SECONDS (9.4-12.5) H 07/08/18 11:10 INR 1.12 07/08/18 11:10 APTT 27.6 Seconds (26.9-38.3) 07/08/18 11:10 Attending/Attestation - Attestation I have personally seen and examined this patient.: Yes I have fully participated in the care of the patient.: Yes I have reviewed all pertinent clinical information, including history, physical exam and plan: Yes
--- NOTE | 2018-07-10 11:42 | PN ---
DATE: 07/10/2018 SUBJECTIVE: I saw him in the intensive care unit today. It is the first day I saw him with his eyes opened. Not able to focus, but his eyes were opened. He is on Ativan, Dilaudid, Diprivan, DuoNeb, Ecotrin, Effient, heparin, Lopressor, midazolam, Nicoderm, Precedex Protonix, thiamine, Zestril, and Zosyn. He has a trach in place. He has NG tube feeding. He does not want a feeding tube in the abdomen. No PEG tube as per family. PHYSICAL EXAMINATION: VITAL SIGNS: Temperature 99.1, 90 pulse, 142/80 blood pressure, 96% O2 sat. HEENT: Atraumatic, normocephalic. His eyes are opened today. HEART: Regular rate. LUNGS: Decreased breath sounds. NECK: Has a trach. ABDOMEN: Soft, obese. EXTREMITIES: No edema. LABORATORY DATA: He has an 11 white count, 11.2 hemoglobin, 34.7 hematocrit with 262 platelets. Sodium 140, potassium 4.1, BUN 20, creatinine 0.9, GFR is greater than 60, sugar 107, calcium 8.4, phosphorous 3.8, magnesium 2.2. Total bilirubin is 0.5, AST is 105, ALT is 107, alk phos 54, total protein is 6.6. PLAN: I believe the plan is to discharge him to a LTAC near the family. He could be discharged later today after they had it worked out to be sent to [place]. Ministerio Wan DO
--- NOTE | 2018-07-10 14:39 | PN ---
DATE: 07/10/2018 CARDIOLOGY FOLLOWUP SUBJECTIVE: The patient remains on a ventilator. There is no improvement of his neurologic status off of sedation. PHYSICAL EXAMINATION VITAL SIGNS: Blood pressure is 122/61 and heart rate is in the 80s. NECK: Negative JVD. LUNGS: Without rales. HEART: Reveals S1 and S2. EXTREMITIES: Without edema. LABORATORY DATA: Hemoglobin is 11.2. Chemistries, BUN and creatinine are unremarkable. IMPRESSION: 1. Status post acute inferior wall myocardial infarction with cardiogenic shock. 2. Right ventricular infarction. 3. Respiratory failure. 4. Anoxic encephalopathy. 5. Hypertension. Given these findings, I agree with adding an MARQUITA inhibitor given his hypertension. The patient will need long-term care likely an LTAC. Devonte Patel MD
[2018-07-10] MEDS: Dexmedetomidine 400mcg/100mL 400 MCG/100 ML BOTTLE IV PRN (18:14)
[2018-07-11] MEDS: Albuterol-Ipratrop 3 mg / 0.5 (3 ml) UD IH SCH ×4 (01:54→21:15)
[2018-07-11 05:16] LABS: ARTERIAL BLOOD GAS HEMOGLOBIN 11.5 g/dL (11.7-17.4); ARTERIAL BLOOD GAS O2 CAPACITY 15.8 mL/dl (16-24); ARTERIAL BLOOD GAS O2 CONTENT 15.7 ML/dl (15-23); ARTERIAL BLOOD GAS O2 SAT 99.3 % (95-98); ARTERIAL BLOOD GAS PCO2 36 mm/Hg (35-45); ARTERIAL BLOOD GAS PH 7.45 (7.35-7.45); ARTERIAL BLOOD GAS TCO2 26.1 mmol.L (22-28)
[2018-07-11 06:15] LABS: BASO # 0.03 K/mm3 (0.0-2.0); BASO % 0.2 % (0.0-3.0); EOS # 0.4 (0.0-0.7); EOS % 2.4 % (1.5-5.0); HEMOGLOBIN 12.3 g/dL (14.0-18.0); LYMPH % 13.2 % (22.0-35.0); MEAN CELL VOLUME 94.5 fl (80.0-105.0); MEAN CORPUSCULAR HGB CONC 32.8 g/dl (31.0-37.0); MEAN PLATELET VOLUME 9.3 fl (7.0-11.0); MONO # 0.6 (0.1-0.6); MONO % 4.1 % (1.0-6.0); RBC 3.97 10^6/uL (3.5-6.1); RED CELL DISTRIBUTION WIDTH 14.3 % (11.5-14.5); WHITE BLOOD COUNT 15.2 10^3/uL (4.5-11.0)
[2018-07-11 06:33] LABS: ALB/GLOB RATIO 0.9 (1.1-1.8); ALBUMIN 3.6 g/dL (3.0-4.8); ALT/SGPT 181 U/L (7-56); AST/SGOT 92 U/L (17-59); BLOOD UREA NITROGEN 19 mg/dL (7-21); CALCIUM 9.1 mg/dL (8.4-10.5); GFR NON-AFRICAN AMERICAN > 60
--- NOTE | 2018-07-11 08:06 | CP.CCUPN ---
<KavinMike Gamboa - Last Filed: 07/11/18 15:22> CCU Subjective - Physician Review Events Since Last Encounter (Free Text): 07/11/18 08:01 eyes open but not tracking, unable to follow commands, able to move legs, no acute events over night Subjective (Free Text): 07/07/18 11:21 pt seen and examined this morning, pt intubated at this time 07/11/18 08:06 pt seen and examined, pt unable to answer or follow commands, eyes are open but no tracking, trach collar CCU Objective - Vital Signs / Intake & Output Intake and Output (Last 8hrs): Intake & Output 07/10/18 07/11/18 07/11/18 22:59 06:59 14:59 Intake Total 1460 Output Total 1000 Balance 460 Intake: IV 160 Right Hand 60 Tube Feeding 900 Other 400 Output: Urine 1000 Urethral ([place]) 1000 - Physical Exam Physical Exam Limitations: Positive for: Altered Mental Status Head: Positive for: Atraumatic, Normocephalic Extroacular Muscles: Positive for: EOMI Conjunctiva: Positive for: Normal Mouth: Positive for: Moist Mucous Membranes Neck: Positive for: Normal Range of Motion. Negative for: JVD, Lymphadenopathy Respiratory/Chest: Positive for: Clear to Auscultation. Negative for: Wheezes, Rhonchi Cardiovascular: Positive for: Regular Rate and Rhythm, Normal S1, S2. Negative for: Murmurs, Rub, Gallop Abdomen: Positive for: Normal Bowel Sounds. Negative for: Distention, Mass/Organomegaly Back: Positive for: Normal Inspection Upper Extremity: Positive for: Normal Inspection, NORMAL PULSES. Negative for: Cyanosis, Edema Lower Extremity: Positive for: Normal Inspection, NORMAL PULSES. Negative for: Edema, Cyanosis, Swelling, Erythema Neurological: Positive for: Other (GCS =6 E4V1M1) Skin: Positive for: Warm, Dry, Normal Color. Negative for: Rashes - Medications Active Medications: Active Medications Generic Name Dose Route Start Last Admin Trade Name Freq PRN Reason Stop Dose Admin Albuterol/Ipratropium 3 ml 07/01/18 17:28 07/08/18 16:57 Duoneb 3 Mg/0.5 Mg (3 Ml) Ud IH 3 ml Q2H PRN Administration Shortness of Breath Albuterol/Ipratropium 3 ml 07/04/18 14:00 07/11/18 07:12 Duoneb 3 Mg/0.5 Mg (3 Ml) Ud IH 3 ml [id number] XU Administration Aspirin 81 mg 07/02/18 10:30 07/10/18 10:05 Ecotrin PO 81 mg DAILY XU Administration Heparin Sodium (Porcine) 5,000 units 07/03/18 14:00 07/11/18 06:33 Heparin SC 5,000 units Q8 XU Administration Protocol Hydromorphone HCl 0.5 mg 07/08/18 16:49 07/10/18 06:18 Dilaudid IVP 0.5 mg Q4H PRN Administration Pain, moderate (4-7) Propofol 1,000 mg in 100 mls @ 6.314 mls/hr 07/04/18 18:28 07/09/18 08:00 Diprivan IV 0 mcg/kg/min .[id number] PRN 0 mls/hr TITRATE PER MD ORDER Titration Protocol 10 MCG/KG/MIN Midazolam 100 mg/100ml in NS 100 mg in 100 mls @ 2 mls/hr 07/06/18 07:50 07/09/18 08:15 Midazolam 100 Mg/100ml In Ns IV 0 mg/hr .Q24H PRN 0 mls/hr Sedation Titration Protocol 2 MG/HR Thiamine HCl 300 mg/ Sodium 103 mls @ 206 mls/hr 07/08/18 18:00 07/10/18 10:36 Chloride IV 206 mls/hr DAILY XU Administration Dexmedetomidine HCl 400 mcg in 100 mls @ 5.33 mls/hr 07/09/18 09:12 07/10/18 18:14 Precedex 400mcg/100ml IV 0.2 mcg/kg/hr .[id number] PRN 5.33 mls/hr Sedation Administration Protocol 0.2 MCG/KG/HR Lisinopril 5 mg 07/09/18 12:15 07/10/18 10:04 Zestril PO 5 mg DAILY XU Administration Lorazepam 2 mg 07/01/18 14:13 07/07/18 23:47 Ativan IVP 2 mg Q2H PRN Administration Anxiety Protocol Metoprolol Tartrate 25 mg 07/03/18 12:00 07/10/18 18:07 Lopressor PO 25 mg BID XU Administration Nicotine 1 patch 07/02/18 10:00 07/10/18 10:05 Nicoderm Cq TD 1 patch DAILY XU Administration Pantoprazole Sodium 40 mg 07/01/18 22:00 07/11/18 00:12 Protonix Inj IVP 40 mg Q12 XU Administration Prasugrel 10 mg 07/04/18 10:00 07/10/18 10:04 Effient PO 10 mg DAILY XU Administration - Patient Studies Lab Studies: Lab Studies 07/11/18 07/11/18 07/11/18 Range/Units 05:30 05:30 05:00 WBC 15.2 H D (4.5-11.0) 10^3/uL RBC 3.97 (3.5-6.1) 10^6/uL Hgb 12.3 L (14.0-18.0) g/dL Hct 37.5 L (42.0-52.0) % MCV 94.5 (80.0-105.0) fl MCH 31.0 (25.0-35.0) pg MCHC 32.8 (31.0-37.0) g/dl RDW 14.3 (11.5-14.5) % Plt Count 301 (120.0-450.0) 10^3/uL MPV 9.3 (7.0-11.0) fl Neut % (Auto) 80.1 H (50.0-68.0) % Lymph % (Auto) 13.2 L (22.0-35.0) % Morrow % (Auto) 4.1 (1.0-6.0) % Eos % (Auto) 2.4 (1.5-5.0) % Baso % (Auto) 0.2 (0.0-3.0) % Lymph # (Auto) 2.0 (1.2-3.4) Morrow # (Auto) 0.6 (0.1-0.6) Eos # (Auto) 0.4 (0.0-0.7) Baso # (Auto) 0.03 (0.0-2.0) K/mm3 Absolute Neuts (auto) 12.20 H (1.4-6.5) pCO2 36 (35-45) mm/Hg pO2 92.0 (80-100) mm/Hg HCO3 25.0 (21-28) mmol/L ABG pH 7.45 (7.35-7.45) ABG Total CO2 26.1 (22-28) mmol.L ABG O2 Saturation 99.3 H (95-98) % ABG O2 Content 15.7 (15-23) ML/dl ABG Base Excess 1.2 (-2.0-3.0) mmol/L ABG Hemoglobin 11.5 L (11.7-17.4) g/dL ABG Carboxyhemoglobin 2.0 H (0.5-1.5) % POC ABG HHb (Measured) 0.7 (0-5) % ABG Methemoglobin 1.0 (0.0-3.0) % ABG O2 Capacity 15.8 L (16-24) mL/dl Hgb O2 Saturation 96.3 (95.0-98.0) % FiO2 50.0 % Sodium 139 (132-148) mmol/L Potassium 4.6 (3.6-5.0) mmol/L Chloride 104 (98-107) mmol/L Carbon Dioxide 27 (21-33) mmol/L Anion Gap 13 (10-20) BUN 19 (7-21) mg/dL Creatinine 0.9 (0.8-1.5) mg/dl Est GFR ( Amer) > 60 Est GFR (Non-Af Amer) > 60 POC Glucose (mg/dL) (65-110) mg/dL Random Glucose 104 (70-110) mg/dL Calcium 9.1 (8.4-10.5) mg/dL Phosphorus 3.9 (2.5-4.5) mg/dL Magnesium 2.3 H (1.7-2.2) mg/dL Total Bilirubin 0.5 (0.2-1.3) mg/dL AST 92 H (17-59) U/L ALT 181 H (7-56) U/L Alkaline Phosphatase 62 (38-126) U/L Total Protein 7.5 (5.8-8.3) g/dL Albumin 3.6 (3.0-4.8) g/dL Globulin 3.9 gm/dL Albumin/Globulin Ratio 0.9 L (1.1-1.8) Procalcitonin (0.19-0.49) NG/ML 07/10/18 07/10/18 07/10/18 Range/Units 23:21 13:24 11:20 WBC (4.5-11.0) 10^3/uL RBC (3.5-6.1) 10^6/uL Hgb (14.0-18.0) g/dL Hct (42.0-52.0) % MCV (80.0-105.0) fl MCH (25.0-35.0) pg MCHC (31.0-37.0) g/dl RDW (11.5-14.5) % Plt Count (120.0-450.0) 10^3/uL MPV (7.0-11.0) fl Neut % (Auto) (50.0-68.0) % Lymph % (Auto) (22.0-35.0) % Morrow % (Auto) (1.0-6.0) % Eos % (Auto) (1.5-5.0) % Baso % (Auto) (0.0-3.0) % Lymph # (Auto) (1.2-3.4) Morrow # (Auto) (0.1-0.6) Eos # (Auto) (0.0-0.7) Baso # (Auto) (0.0-2.0) K/mm3 Absolute Neuts (auto) (1.4-6.5) pCO2 (35-45) mm/Hg pO2 (80-100) mm/Hg HCO3 (21-28) mmol/L ABG pH (7.35-7.45) ABG Total CO2 (22-28) mmol.L ABG O2 Saturation (95-98) % ABG O2 Content (15-23) ML/dl ABG Base Excess (-2.0-3.0) mmol/L ABG Hemoglobin (11.7-17.4) g/dL ABG Carboxyhemoglobin (0.5-1.5) % POC ABG HHb (Measured) (0-5) % ABG Methemoglobin (0.0-3.0) % ABG O2 Capacity (16-24) mL/dl Hgb O2 Saturation (95.0-98.0) % FiO2 % Sodium (132-148) mmol/L Potassium (3.6-5.0) mmol/L Chloride (98-107) mmol/L Carbon Dioxide (21-33) mmol/L Anion Gap (10-20) BUN (7-21) mg/dL Creatinine (0.8-1.5) mg/dl Est GFR ( Amer) Est GFR (Non-Af Amer) POC Glucose (mg/dL) 160 H 158 H (65-110) mg/dL Random Glucose (70-110) mg/dL Calcium (8.4-10.5) mg/dL Phosphorus (2.5-4.5) mg/dL Magnesium (1.7-2.2) mg/dL Total Bilirubin (0.2-1.3) mg/dL AST (17-59) U/L ALT (7-56) U/L Alkaline Phosphatase (38-126) U/L Total Protein (5.8-8.3) g/dL Albumin (3.0-4.8) g/dL Globulin gm/dL Albumin/Globulin Ratio (1.1-1.8) Procalcitonin 0.06 L (0.19-0.49) NG/ML 07/10/18 Range/Units 07:51 WBC (4.5-11.0) 10^3/uL RBC (3.5-6.1) 10^6/uL Hgb (14.0-18.0) g/dL Hct (42.0-52.0) % MCV (80.0-105.0) fl MCH (25.0-35.0) pg MCHC (31.0-37.0) g/dl RDW (11.5-14.5) % Plt Count (120.0-450.0) 10^3/uL MPV (7.0-11.0) fl Neut % (Auto) (50.0-68.0) % Lymph % (Auto) (22.0-35.0) % Morrow % (Auto) (1.0-6.0) % Eos % (Auto) (1.5-5.0) % Baso % (Auto) (0.0-3.0) % Lymph # (Auto) (1.2-3.4) Morrow # (Auto) (0.1-0.6) Eos # (Auto) (0.0-0.7) Baso # (Auto) (0.0-2.0) K/mm3 Absolute Neuts (auto) (1.4-6.5) pCO2 (35-45) mm/Hg pO2 (80-100) mm/Hg HCO3 (21-28) mmol/L ABG pH (7.35-7.45) ABG Total CO2 (22-28) mmol.L ABG O2 Saturation (95-98) % ABG O2 Content (15-23) ML/dl ABG Base Excess (-2.0-3.0) mmol/L ABG Hemoglobin (11.7-17.4) g/dL ABG Carboxyhemoglobin (0.5-1.5) % POC ABG HHb (Measured) (0-5) % ABG Methemoglobin (0.0-3.0) % ABG O2 Capacity (16-24) mL/dl Hgb O2 Saturation (95.0-98.0) % FiO2 % Sodium (132-148) mmol/L Potassium (3.6-5.0) mmol/L Chloride (98-107) mmol/L Carbon Dioxide (21-33) mmol/L Anion Gap (10-20) BUN (7-21) mg/dL Creatinine (0.8-1.5) mg/dl Est GFR ( Amer) Est GFR (Non-Af Amer) POC Glucose (mg/dL) 146 H (65-110) mg/dL Random Glucose (70-110) mg/dL Calcium (8.4-10.5) mg/dL Phosphorus (2.5-4.5) mg/dL Magnesium (1.7-2.2) mg/dL Total Bilirubin (0.2-1.3) mg/dL AST (17-59) U/L ALT (7-56) U/L Alkaline Phosphatase (38-126) U/L Total Protein (5.8-8.3) g/dL Albumin (3.0-4.8) g/dL Globulin gm/dL Albumin/Globulin Ratio (1.1-1.8) Procalcitonin (0.19-0.49) NG/ML Laboratory Results - last 24 hr 07/10/18 07/10/18 07/10/18 07:51 11:20 13:24 WBC RBC Hgb Hct MCV MCH MCHC RDW Plt Count MPV Neut % (Auto) Lymph % (Auto) [place]row % (Auto) Eos % (Auto) Baso % (Auto) Lymph # (Auto) [place] # (Auto) Eos # (Auto) Baso # (Auto) Absolute Neuts (auto) pCO2 pO2 HCO3 ABG pH ABG Total CO2 ABG O2 Saturation ABG O2 Content ABG Base Excess ABG Hemoglobin ABG Carboxyhemoglobin POC ABG HHb (Measured) ABG Methemoglobin ABG O2 Capacity Hgb O2 Saturation FiO2 Sodium Potassium Chloride Carbon Dioxide Anion Gap BUN Creatinine Est GFR ( Amer) Est GFR (Non-Af Amer) POC Glucose (mg/dL) 146 H 158 H Random Glucose Calcium Phosphorus Magnesium Total Bilirubin AST ALT Alkaline Phosphatase Total Protein Albumin Globulin Albumin/Globulin Ratio Procalcitonin 0.06 L 07/10/18 07/11/18 07/11/18 23:21 05:00 05:30 WBC 15.2 H D RBC 3.97 Hgb 12.3 L Hct 37.5 L MCV 94.5 MCH 31.0 MCHC 32.8 RDW 14.3 Plt Count 301 MPV 9.3 Neut % (Auto) 80.1 H Lymph % (Auto) 13.2 L [place]row % (Auto) 4.1 Eos % (Auto) 2.4 Baso % (Auto) 0.2 Lymph # (Auto) 2.0 Morrow # (Auto) 0.6 Eos # (Auto) 0.4 Baso # (Auto) 0.03 Absolute Neuts (auto) 12.20 H pCO2 36 pO2 92.0 HCO3 25.0 ABG pH 7.45 ABG Total CO2 26.1 ABG O2 Saturation 99.3 H ABG O2 Content 15.7 ABG Base Excess 1.2 ABG Hemoglobin 11.5 L ABG Carboxyhemoglobin 2.0 H POC ABG HHb (Measured) 0.7 ABG Methemoglobin 1.0 ABG O2 Capacity 15.8 L Hgb O2 Saturation 96.3 FiO2 50.0 Sodium Potassium Chloride Carbon Dioxide Anion Gap BUN Creatinine Est GFR ( Amer) Est GFR (Non-Af Amer) POC Glucose (mg/dL) 160 H Random Glucose Calcium Phosphorus Magnesium Total Bilirubin AST ALT Alkaline Phosphatase Total Protein Albumin Globulin Albumin/Globulin Ratio Procalcitonin 07/11/18 05:30 WBC RBC Hgb Hct MCV MCH MCHC RDW Plt Count MPV Neut % (Auto) Lymph % (Auto) Morrow % (Auto) Eos % (Auto) Baso % (Auto) Lymph # (Auto) [place]row # (Auto) Eos # (Auto) Baso # (Auto) Absolute Neuts (auto) pCO2 pO2 HCO3 ABG pH ABG Total CO2 ABG O2 Saturation ABG O2 Content ABG Base Excess ABG Hemoglobin ABG Carboxyhemoglobin POC ABG HHb (Measured) ABG Methemoglobin ABG O2 Capacity Hgb O2 Saturation FiO2 Sodium 139 Potassium 4.6 Chloride 104 Carbon Dioxide 27 Anion Gap 13 BUN 19 Creatinine 0.9 Est GFR ( Amer) > 60 Est GFR (Non-Af Amer) > 60 POC Glucose (mg/dL) Random Glucose 104 Calcium 9.1 Phosphorus 3.9 Magnesium 2.3 H Total Bilirubin 0.5 AST 92 H ALT 181 H Alkaline Phosphatase 62 Total Protein 7.5 Albumin 3.6 Globulin 3.9 Albumin/Globulin Ratio 0.9 L Procalcitonin Fingerstick Blood Sugar Results: 160 Assessment/Plan - Assessment and Plan (Free Text) Assessment: 53 y/o male admitted to ICU s/p VFib cardiac arrest with subsequent PCI with RCA stent placed. He sustained anoxic cerebral injury with diffuse cerebral edema requiring intubation. Now on trach ventilation and sedated on precedex Plan: Neuro - GCS=6 [id number] - anoxic brain injury, VFib cardiac arrest with subsequent multiple defibrillation, PCI and RCA ANALISA placement - precedex - hypothermic protocol not initiated on admission to ICU due to epistaxis and hemoptysis at that time - CT head 07/03/18: no ICH, diffuse cerebral edema, findings consistent with anoxic brain injury - Video EEG 07/03/18: no seizure activity. Severe slowing/attenuation - continue ativan prn - continue thiamine 300 for neurocognitive activation as per neuro - neuro consulted, Dr King Cardio - cardiac arrest due to VFib s/p PCI with RCA ANALISA - asa, effient, lisinopril, lopressor - statins held due to elevated LFT - maintain MAP>65 - Echo 07/02/18: LVEF 45% LVH with hypokinesis, mild pulm HTN - cardio consulted, Dr Patel Pulm - ventilator dependent respiratory failure. s/p tracheostomy (07/08) - trach collar, 7L - COPD, chronic smoker, duonebs xu and prn - maintain O2>92% GI - transaminitis likely due to shock liver in the setting of cardiac arrest - AST/ALT 92/181 - history of alcoholism, obese - hepatitis A/B/C NEGATIVE - U/S abdomen: fibro/fatty liver infiltration - continue NG enteral feeding - GI ppx Protonix q12 - GI consulted, continue NG feeding for one month then re-evaluate for possible PEG placement since this's a high risk procedure and not an emergency. Effient would need to be held up to 7 days before PEG could be placed. 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 patient to LTACH facility in [place] Pt seen, examined, assessment and plan discussed with Dr Judah Vale PGY1 - Date & Time Date: 07/11/18 Time: 08:15 <Jin So - Last Filed: 07/11/18 16:14> CCU Objective - Medications Active Medications: Active Medications Generic Name Dose Route Start Last Admin Trade Name Freq PRN Reason Stop Dose Admin Albuterol/Ipratropium 3 ml 07/01/18 17:28 07/08/18 16:57 Duoneb 3 Mg/0.5 Mg (3 Ml) Ud IH 3 ml Q2H PRN Administration Shortness of Breath Albuterol/Ipratropium 3 ml 07/04/18 14:00 07/11/18 13:51 Duoneb 3 Mg/0.5 Mg (3 Ml) Ud IH 3 ml [id number] XU Administration Aspirin 81 mg 07/02/18 10:30 07/11/18 10:21 Ecotrin PO 81 mg DAILY XU Administration Hydromorphone HCl 0.5 mg 07/08/18 16:49 07/10/18 06:18 Dilaudid IVP 0.5 mg Q4H PRN Administration Pain, moderate (4-7) Propofol 1,000 mg in 100 mls @ 6.314 mls/hr 07/04/18 18:28 07/09/18 08:00 Diprivan IV 0 mcg/kg/min .[id number] PRN 0 mls/hr TITRATE PER MD ORDER Titration Protocol 10 MCG/KG/MIN Midazolam 100 mg/100ml in NS 100 mg in 100 mls @ 2 mls/hr 07/06/18 07:50 07/09/18 08:15 Midazolam 100 Mg/100ml In Ns IV 0 mg/hr .Q24H PRN 0 mls/hr Sedation Titration Protocol 2 MG/HR Dexmedetomidine HCl 400 mcg in 100 mls @ 5.33 mls/hr 07/09/18 09:12 07/10/18 18:14 Precedex 400mcg/100ml IV 0.2 mcg/kg/hr .[id number] PRN 5.33 mls/hr Sedation Administration Protocol 0.2 MCG/KG/HR Lisinopril 5 mg 07/09/18 12:15 07/11/18 10:19 Zestril PO 5 mg DAILY XU Administration Lorazepam 2 mg 07/01/18 14:13 07/07/18 23:47 Ativan IVP 2 mg Q2H PRN Administration Anxiety Protocol Metoprolol Tartrate 25 mg 07/03/18 12:00 07/11/18 10:21 Lopressor PO 25 mg BID XU Administration Nicotine 1 patch 07/02/18 10:00 07/11/18 10:18 Nicoderm Cq TD 1 patch DAILY XU Administration Pantoprazole Sodium 40 mg 07/01/18 22:00 07/11/18 10:18 Protonix Inj IVP 40 mg Q12 XU Administration Prasugrel 10 mg 07/04/18 10:00 07/11/18 10:19 Effient PO 10 mg DAILY XU Administration Thiamine HCl 100 mg 07/11/18 12:30 07/11/18 12:38 Vitamin B1 Tab PO Not Given DAILY XU - Patient Studies Lab Studies: Lab Studies 07/11/18 07/11/18 07/11/18 Range/Units 10:47 07:26 05:30 WBC (4.5-11.0) 10^3/uL RBC (3.5-6.1) 10^6/uL Hgb (14.0-18.0) g/dL Hct (42.0-52.0) % MCV (80.0-105.0) fl MCH (25.0-35.0) pg MCHC (31.0-37.0) g/dl RDW (11.5-14.5) % Plt Count (120.0-450.0) 10^3/uL MPV (7.0-11.0) fl Neut % (Auto) (50.0-68.0) % Lymph % (Auto) (22.0-35.0) % [place]row % (Auto) (1.0-6.0) % Eos % (Auto) (1.5-5.0) % Baso % (Auto) (0.0-3.0) % Lymph # (Auto) (1.2-3.4) [place]row # (Auto) (0.1-0.6) Eos # (Auto) (0.0-0.7) Baso # (Auto) (0.0-2.0) K/mm3 Absolute Neuts (auto) (1.4-6.5) pCO2 (35-45) mm/Hg pO2 (80-100) mm/Hg HCO3 (21-28) mmol/L ABG pH (7.35-7.45) ABG Total CO2 (22-28) mmol.L ABG O2 Saturation (95-98) % ABG O2 Content (15-23) ML/dl ABG Base Excess (-2.0-3.0) mmol/L ABG Hemoglobin (11.7-17.4) g/dL ABG Carboxyhemoglobin (0.5-1.5) % POC ABG HHb (Measured) (0-5) % ABG Methemoglobin (0.0-3.0) % ABG O2 Capacity (16-24) mL/dl Hgb O2 Saturation (95.0-98.0) % FiO2 % Sodium 139 (132-148) mmol/L Potassium 4.6 (3.6-5.0) mmol/L Chloride 104 (98-107) mmol/L Carbon Dioxide 27 (21-33) mmol/L Anion Gap 13 (10-20) BUN 19 (7-21) mg/dL Creatinine 0.9 (0.8-1.5) mg/dl Est GFR ( Amer) > 60 Est GFR (Non-Af Amer) > 60 POC Glucose (mg/dL) 134 H 124 H (65-110) mg/dL Random Glucose 104 (70-110) mg/dL Calcium 9.1 (8.4-10.5) mg/dL Phosphorus 3.9 (2.5-4.5) mg/dL Magnesium 2.3 H (1.7-2.2) mg/dL Total Bilirubin 0.5 (0.2-1.3) mg/dL AST 92 H (17-59) U/L ALT 181 H (7-56) U/L Alkaline Phosphatase 62 (38-126) U/L Total Protein 7.5 (5.8-8.3) g/dL Albumin 3.6 (3.0-4.8) g/dL Globulin 3.9 gm/dL Albumin/Globulin Ratio 0.9 L (1.1-1.8) Procalcitonin (0.19-0.49) NG/ML 07/11/18 07/11/18 07/10/18 Range/Units 05:30 05:00 23:21 WBC 15.2 H D (4.5-11.0) 10^3/uL RBC 3.97 (3.5-6.1) 10^6/uL Hgb 12.3 L (14.0-18.0) g/dL Hct 37.5 L (42.0-52.0) % MCV 94.5 (80.0-105.0) fl MCH 31.0 (25.0-35.0) pg MCHC 32.8 (31.0-37.0) g/dl RDW 14.3 (11.5-14.5) % Plt Count 301 (120.0-450.0) 10^3/uL MPV 9.3 (7.0-11.0) fl Neut % (Auto) 80.1 H (50.0-68.0) % Lymph % (Auto) 13.2 L (22.0-35.0) % [place]row % (Auto) 4.1 (1.0-6.0) % Eos % (Auto) 2.4 (1.5-5.0) % Baso % (Auto) 0.2 (0.0-3.0) % Lymph # (Auto) 2.0 (1.2-3.4) Morrow # (Auto) 0.6 (0.1-0.6) Eos # (Auto) 0.4 (0.0-0.7) Baso # (Auto) 0.03 (0.0-2.0) K/mm3 Absolute Neuts (auto) 12.20 H (1.4-6.5) pCO2 36 (35-45) mm/Hg pO2 92.0 (80-100) mm/Hg HCO3 25.0 (21-28) mmol/L ABG pH 7.45 (7.35-7.45) ABG Total CO2 26.1 (22-28) mmol.L ABG O2 Saturation 99.3 H (95-98) % ABG O2 Content 15.7 (15-23) ML/dl ABG Base Excess 1.2 (-2.0-3.0) mmol/L ABG Hemoglobin 11.5 L (11.7-17.4) g/dL ABG Carboxyhemoglobin 2.0 H (0.5-1.5) % POC ABG HHb (Measured) 0.7 (0-5) % ABG Methemoglobin 1.0 (0.0-3.0) % ABG O2 Capacity 15.8 L (16-24) mL/dl Hgb O2 Saturation 96.3 (95.0-98.0) % FiO2 50.0 % Sodium (132-148) mmol/L Potassium (3.6-5.0) mmol/L Chloride (98-107) mmol/L Carbon Dioxide (21-33) mmol/L Anion Gap (10-20) BUN (7-21) mg/dL Creatinine (0.8-1.5) mg/dl Est GFR ( Amer) Est GFR (Non-Af Amer) POC Glucose (mg/dL) 160 H (65-110) mg/dL Random Glucose (70-110) mg/dL Calcium (8.4-10.5) mg/dL Phosphorus (2.5-4.5) mg/dL Magnesium (1.7-2.2) mg/dL Total Bilirubin (0.2-1.3) mg/dL AST (17-59) U/L ALT (7-56) U/L Alkaline Phosphatase (38-126) U/L Total Protein (5.8-8.3) g/dL Albumin (3.0-4.8) g/dL Globulin gm/dL Albumin/Globulin Ratio (1.1-1.8) Procalcitonin (0.19-0.49) NG/ML 07/10/18 07/10/18 Range/Units 13:24 11:20 WBC (4.5-11.0) 10^3/uL RBC (3.5-6.1) 10^6/uL Hgb (14.0-18.0) g/dL Hct (42.0-52.0) % MCV (80.0-105.0) fl MCH (25.0-35.0) pg MCHC (31.0-37.0) g/dl RDW (11.5-14.5) % Plt Count (120.0-450.0) 10^3/uL MPV (7.0-11.0) fl Neut % (Auto) (50.0-68.0) % Lymph % (Auto) (22.0-35.0) % [place]row % (Auto) (1.0-6.0) % Eos % (Auto) (1.5-5.0) % Baso % (Auto) (0.0-3.0) % Lymph # (Auto) (1.2-3.4) Morrow # (Auto) (0.1-0.6) Eos # (Auto) (0.0-0.7) Baso # (Auto) (0.0-2.0) K/mm3 Absolute Neuts (auto) (1.4-6.5) pCO2 (35-45) mm/Hg pO2 (80-100) mm/Hg HCO3 (21-28) mmol/L ABG pH (7.35-7.45) ABG Total CO2 (22-28) mmol.L ABG O2 Saturation (95-98) % ABG O2 Content (15-23) ML/dl ABG Base Excess (-2.0-3.0) mmol/L ABG Hemoglobin (11.7-17.4) g/dL ABG Carboxyhemoglobin (0.5-1.5) % POC ABG HHb (Measured) (0-5) % ABG Methemoglobin (0.0-3.0) % ABG O2 Capacity (16-24) mL/dl Hgb O2 Saturation (95.0-98.0) % FiO2 % Sodium (132-148) mmol/L Potassium (3.6-5.0) mmol/L Chloride (98-107) mmol/L Carbon Dioxide (21-33) mmol/L Anion Gap (10-20) BUN (7-21) mg/dL Creatinine (0.8-1.5) mg/dl Est GFR ( Amer) Est GFR (Non-Af Amer) POC Glucose (mg/dL) 158 H (65-110) mg/dL Random Glucose (70-110) mg/dL Calcium (8.4-10.5) mg/dL Phosphorus (2.5-4.5) mg/dL Magnesium (1.7-2.2) mg/dL Total Bilirubin (0.2-1.3) mg/dL AST (17-59) U/L ALT (7-56) U/L Alkaline Phosphatase (38-126) U/L Total Protein (5.8-8.3) g/dL Albumin (3.0-4.8) g/dL Globulin gm/dL Albumin/Globulin Ratio (1.1-1.8) Procalcitonin 0.06 L (0.19-0.49) NG/ML Laboratory Results - last 24 hr 07/10/18 07/10/18 07/10/18 11:20 13:24 23:21 WBC RBC Hgb Hct MCV MCH MCHC RDW Plt Count MPV Neut % (Auto) Lymph % (Auto) Morrow % (Auto) Eos % (Auto) Baso % (Auto) Lymph # (Auto) Morrow # (Auto) Eos # (Auto) Baso # (Auto) Absolute Neuts (auto) pCO2 pO2 HCO3 ABG pH ABG Total CO2 ABG O2 Saturation ABG O2 Content ABG Base Excess ABG Hemoglobin ABG Carboxyhemoglobin POC ABG HHb (Measured) ABG Methemoglobin ABG O2 Capacity Hgb O2 Saturation FiO2 Sodium Potassium Chloride Carbon Dioxide Anion Gap BUN Creatinine Est GFR ( Amer) Est GFR (Non-Af Amer) POC Glucose (mg/dL) 158 H 160 H Random Glucose Calcium Phosphorus Magnesium Total Bilirubin AST ALT Alkaline Phosphatase Total Protein Albumin Globulin Albumin/Globulin Ratio Procalcitonin 0.06 L 07/11/18 07/11/18 07/11/18 05:00 05:30 05:30 WBC 15.2 H D RBC 3.97 Hgb 12.3 L Hct 37.5 L MCV 94.5 MCH 31.0 MCHC 32.8 RDW 14.3 Plt Count 301 MPV 9.3 Neut % (Auto) 80.1 H Lymph % (Auto) 13.2 L Morrow % (Auto) 4.1 Eos % (Auto) 2.4 Baso % (Auto) 0.2 Lymph # (Auto) 2.0 Morrow # (Auto) 0.6 Eos # (Auto) 0.4 Baso # (Auto) 0.03 Absolute Neuts (auto) 12.20 H pCO2 36 pO2 92.0 HCO3 25.0 ABG pH 7.45 ABG Total CO2 26.1 ABG O2 Saturation 99.3 H ABG O2 Content 15.7 ABG Base Excess 1.2 ABG Hemoglobin 11.5 L ABG Carboxyhemoglobin 2.0 H POC ABG HHb (Measured) 0.7 ABG Methemoglobin 1.0 ABG O2 Capacity 15.8 L Hgb O2 Saturation 96.3 FiO2 50.0 Sodium 139 Potassium 4.6 Chloride 104 Carbon Dioxide 27 Anion Gap 13 BUN 19 Creatinine 0.9 Est GFR ( Amer) > 60 Est GFR (Non-Af Amer) > 60 POC Glucose (mg/dL) Random Glucose 104 Calcium 9.1 Phosphorus 3.9 Magnesium 2.3 H Total Bilirubin 0.5 AST 92 H ALT 181 H Alkaline Phosphatase 62 Total Protein 7.5 Albumin 3.6 Globulin 3.9 Albumin/Globulin Ratio 0.9 L Procalcitonin 07/11/18 07/11/18 07:26 10:47 WBC RBC Hgb Hct MCV MCH MCHC RDW Plt Count MPV Neut % (Auto) Lymph % (Auto) Morrow % (Auto) Eos % (Auto) Baso % (Auto) Lymph # (Auto) [place]row # (Auto) Eos # (Auto) Baso # (Auto) Absolute Neuts (auto) pCO2 pO2 HCO3 ABG pH ABG Total CO2 ABG O2 Saturation ABG O2 Content ABG Base Excess ABG Hemoglobin ABG Carboxyhemoglobin POC ABG HHb (Measured) ABG Methemoglobin ABG O2 Capacity Hgb O2 Saturation FiO2 Sodium Potassium Chloride Carbon Dioxide Anion Gap BUN Creatinine Est GFR ( Amer) Est GFR (Non-Af Amer) POC Glucose (mg/dL) 124 H 134 H Random Glucose Calcium Phosphorus Magnesium Total Bilirubin AST ALT Alkaline Phosphatase Total Protein Albumin Globulin Albumin/Globulin Ratio Procalcitonin Radiology Impressions: Radiology Impressions Chest X-Ray 07/11/18 12:36 IMPRESSION: The nasogastric tube is in satisfactory position Attending/Attestation - Attestation I have personally seen and examined this patient.: Yes I have fully participated in the care of the patient.: Yes I have reviewed all pertinent clinical information: Yes Notes (Text): 07/11/18 16:11 53 yo male with anoxic brain injury after cardiac arrest, now s/p VDRF/trach. tolerated trach collar since am and doing well. will stop precedex and re-eval. HOB>35, oral hygiene, cont sedation vacation and weaning trials. conservative fluid and 02 management. hemodynamically and respiratory stable. dvt/gi prophylaxis. 07/11/18 16:14 ccm time 40 min
[2018-07-11] MEDS ORDERED: Thiamine 100 mg/ml Inj ONE (10:21)
--- NOTE | 2018-07-11 11:35 | PN ---
DATE: 07/11/2018 SUBJECTIVE: The patient remains on a ventilator. His mental status has not changed. PHYSICAL EXAMINATION: VITAL SIGNS: Blood pressure 116/66, heart rates in the 70s. NECK: Negative JVD. LUNGS: Without rales. HEART: S1 and S2. EXTREMITIES: Without edema. LABORATORY DATA: White count is up to 15, hemoglobin is 12.3, BUN and creatinine are unremarkable. IMPRESSION: 1. Respiratory failure. 2. Anoxic encephalopathy. 3. Status post cardiogenic shock. 4. Status post acute inferior wall myocardial infarction, status post emergency percutaneous transluminal coronary angioplasty and stent of an occluded right coronary artery. 6. Status post intra-aortic balloon pump. PLAN: Given these findings, we will need to look for cause of his elevated white count, may need to panculture. Devonte Patel MD
--- NOTE | 2018-07-11 14:38 | PN ---
DATE: 07/11/2018 SUBJECTIVE: He was in the Intensive Care Unit right now he is on a trach ventilator. His eyes are open. He is moving the right arm more than the left arm. He is pulling I think, he is definitely trying to improve. I think he is improving a little bit. He is on Ativan, Dilaudid, Diprivan, DuoNeb, Ecotrin, Effient, heparin, Lopressor, Nicoderm patch, Precedex, Protonix, thiamine and Zestril. PHYSICAL EXAMINATION VITAL SIGNS: He has a 99 temperature, 74 pulse, 116/66 blood pressure, 100% O2 sat on mechanical ventilator. Actually he is off the ventilator right now, he is on trach collar and he is doing better. HEENT: Head is atraumatic and normocephalic. His eyes are open. He is looking around. HEART: Regular rate. LUNGS: Decreased breath sounds. ABDOMEN: Soft and obese. EXTREMITIES: No edema. He has been through a lot. He had coded, he had NSTEMI, hypoxic, cephalopathy and respiratory failure. LABORATORY DATA: He has a 15.2 white count, 12.3 hemoglobin, 37.5 hematocrit with 301 platelets. A 139 sodium, potassium 4.6, BUN 19, creatinine 0.9, GFR is greater than 60, sugar is 104, calcium is 9.1, phosphorous 3.9, total bili is 0.5, AST is 92, ALT is 181, alk phos 62 and total protein 7.5. The patient is being seen by the Flight Test Mechanic, Infectious Disease, Cardiology, GI and ENT. Family at this time does not want the feeding tube. He is being fed through the NG tube and I believe the plan would be a long-term care facility Continue with aggressive treatment and care on Reuben Fung. Ministerio Wan DO MTDD
--- NOTE | 2018-07-11 14:42 | RAD ---
Date of service: 07/11/2018 HISTORY: NGT placement COMPARISON: No prior. TECHNIQUE: 1 view obtained. FINDINGS: LUNGS: No active pulmonary disease. PLEURA: No significant pleural effusion identified, no pneumothorax apparent. CARDIOVASCULAR: No aortic atherosclerotic calcification present. Normal cardiac size. No pulmonary vascular congestion. OSSEOUS STRUCTURES: No significant abnormalities. VISUALIZED UPPER ABDOMEN: Normal. OTHER FINDINGS: None. IMPRESSION: The nasogastric tube is in satisfactory position
[2018-07-11] MEDS: Vancomycin 1gm in NS 250ml 1 GM/250 ML BAG IVPB SCH (20:07)
[2018-07-11] MEDS: HYDROmorphone 0.5 mg/0.5 ml ISec IVP PRN (20:57)
[2018-07-11] MEDS: Cefepime 1gm in NS 100ml 1 GM/100 ML BAG IVPB SCH (21:01)
[2018-07-11 21:19] LABS: ARTERIAL BLOOD GAS HCO3 23.8 mmol/L (21-28); ARTERIAL BLOOD GAS HEMOGLOBIN 12.3 g/dL (11.7-17.4); ARTERIAL BLOOD GAS O2 CAPACITY 16.8 mL/dl (16-24); ARTERIAL BLOOD GAS O2 CONTENT 16.3 ML/dl (15-23); ARTERIAL BLOOD GAS O2 SAT 97.1 % (95-98); ARTERIAL BLOOD GAS PCO2 35 mm/Hg (35-45); ARTERIAL BLOOD GAS PH 7.44 (7.35-7.45); ARTERIAL BLOOD GAS TCO2 24.9 mmol.L (22-28)
--- NOTE | 2018-07-11 22:22 | PN ---
DATE: 07/11/2018 SUBJECTIVE: The patient is in bed, in no acute distress. PHYSICAL EXAMINATION: GENERAL: Patient currently on Trach collar. VITAL SIGNS: Temperature is 100.2, T-max is 100.3; pulse is 80, blood pressure is 130/80, and respiratory rate 21. HEENT: Unremarkable. NECK: Supple. LUNGS: Have decreased breath sounds. HEART: Normal S1 and S2. ABDOMEN: Soft. LABORATORY DATA: Reveals the patient has a white count of 15,200 and hemoglobin of 12. Chemistries reveals the BUN of 19, creatinine of 0.9. His procalcitonin was yesterday which is 0.06. Urinalysis is noted. Serology is negative. Microbiology reveal Trach collar to be sensitive to oxacillin. MEDICATIONS: Review of orders reveals the patient to be off of antibiotics. Reviewed medications reveals the patient to be . ASSESSMENT AND PLAN: This is a 53-year-old male with alcohol abuse, obesity, hypertension, tobacco use with elevated troponin but refused cardiac catheterization, had cardiac arrest and ventricular fibrillation. He had cardiac cath with stenting in the RCA, intra-aortic balloon pump. He has developed sepsis of aspiration pneumonia with methicillin-susceptible Staphylococcus aureus, ventilator dependent respiratory failure and anoxic brain injury status post cardiac arrest, now with fevers and leukocytosis. Systemic inflammatory response syndrome. We will repeat blood cultures x2, urine culture, sputum culture, nasal MRSA screen. We will order a procalcitonin and now with systemic inflammatory response syndrome with leukocytosis [id number], shortness of breath and patient had been on Zosyn. We will start empirically vancomycin and Maxipime. Pending repeat blood cultures, urine culture, sputum culture, MRSA screen, procalcitonin and septic workup. We will follow with you. Overall prognosis is quite poor. Colton Michelle MD
--- NOTE | 2018-07-11 22:29 | CP.PCM.PN ---
Subjective - Date & Time of Evaluation Date of Evaluation: 07/11/18 Time of Evaluation: 22:25 - Subjective Subjective: S:Was asked to follow up on ABG. Patient is not communication. O:Not in acute distress. Awake. LUNGS: Normal breathing pattern. A:Hypoxia. P: Keep FiO2 at 60%. Objective - Vital Signs/Intake and Output Vital Signs (last 24 hours): Temp Pulse Resp BP Pulse Ox 99 F 85 18 145/89 90 L 07/11/18 20:00 07/11/18 18:00 07/11/18 17:00 07/11/18 17:45 07/11/18 17:00 Intake and Output: 07/11/18 07/12/18 18:59 06:59 Intake Total 1400 Output Total 2301 Balance -901 - Medications Medications: Current Medications Albuterol/Ipratropium (Duoneb 3 Mg/0.5 Mg (3 Ml) Ud) 3 ml IH Q2H PRN PRN Reason: Shortness of Breath Last Admin: 07/08/18 16:57 Dose: 3 ml Albuterol/Ipratropium (Duoneb 3 Mg/0.5 Mg (3 Ml) Ud) 3 ml IH [id number] ALIN Last Admin: 07/11/18 21:15 Dose: 3 ml Aspirin (Ecotrin) 81 mg PO DAILY ALIN Last Admin: 07/11/18 10:21 Dose: 81 mg Hydromorphone HCl (Dilaudid) 0.5 mg IVP Q4H PRN PRN Reason: Pain, moderate (4-7) Last Admin: 07/11/18 20:57 Dose: 0.5 mg Propofol (Diprivan) 1,000 mg in 100 mls @ 6.314 mls/hr IV .[id number] PRN; Prot ocol PRN Reason: TITRATE PER MD ORDER Last Titration: 07/09/18 08:00 Dose: 0 mcg/kg/min, 0 mls/hr Midazolam 100 mg/100ml in NS (Midazolam 100 Mg/100ml In Ns) 100 mg in 100 mls @ 2 mls/hr IV .Q24H PRN; Protocol PRN Reason: Sedation Last Titration: 07/09/18 08:15 Dose: 0 mg/hr, 0 mls/hr Dexmedetomidine HCl (Precedex 400mcg/100ml) 400 mcg in 100 mls @ 5.33 mls/hr IV .[id number] PRN; Protocol PRN Reason: Sedation Last Admin: 07/10/18 18:14 Dose: 0.2 mcg/kg/hr, 5.33 mls/hr Cefepime HCl (Maxipime 1gm) 1 gm in 100 mls @ 100 mls/hr IVPB Q8 ALIN; Protocol Stop: 07/19/18 22:01 Last Admin: 07/11/18 21:01 Dose: 100 mls/hr Vancomycin HCl (Vancomycin 1gm) 1 gm in 250 mls @ 167 mls/hr IVPB Q12H ALIN; Protocol Stop: 07/20/18 18:46 Last Admin: 07/11/18 20:07 Dose: 167 mls/hr Lisinopril (Zestril) 5 mg PO DAILY [facility] Last Admin: 07/11/18 10:19 Dose: 5 mg Lorazepam (Ativan) 2 mg IVP Q2H PRN; Protocol PRN Reason: Anxiety Last Admin: 07/07/18 23:47 Dose: 2 mg Metoprolol Tartrate (Lopressor) 25 mg PO BID [facility] Last Admin: 07/11/18 17:45 Dose: 25 mg Nicotine (Nicoderm Cq) 1 patch TD DAILY [facility] Last Admin: 07/11/18 10:18 Dose: 1 patch Pantoprazole Sodium (Protonix Inj) 40 mg IVP Q12 [facility] Last Admin: 07/11/18 21:00 Dose: 40 mg Prasugrel (Effient) 10 mg PO DAILY [facility] Last Admin: 07/11/18 10:19 Dose: 10 mg Scopolamine (Transderm-Scop) 1 patch TD Q3D [facility] Thiamine HCl (Vitamin B1 Tab) 100 mg PO DAILY [facility] Last Admin: 07/11/18 12:38 Dose: Not Given - Labs Labs: 07/11/18 05:30 07/11/18 05:30 PT 12.7 SECONDS (9.4-12.5) H 07/08/18 11:10 INR 1.12 07/08/18 11:10 APTT 27.6 Seconds (26.9-38.3) 07/08/18 11:10
[2018-07-12] MEDS: Albuterol-Ipratrop 3 mg / 0.5 (3 ml) UD IH SCH ×4 (02:00→19:50)
[2018-07-12] MEDS ORDERED: Acetaminophen 650mg/20.3ml solution UD PO ONE ×2 (05:07→23:39)
[2018-07-12] MEDS: Cefepime 1gm in NS 100ml 1 GM/100 ML BAG IVPB SCH ×3 (05:27→22:20)
[2018-07-12 05:42] LABS: ARTERIAL BLOOD GAS HCO3 23.6 mmol/L (21-28); ARTERIAL BLOOD GAS HEMOGLOBIN 13.4 g/dL (11.7-17.4); ARTERIAL BLOOD GAS O2 CAPACITY 18.3 mL/dl (16-24); ARTERIAL BLOOD GAS O2 CONTENT 17.7 ML/dl (15-23); ARTERIAL BLOOD GAS O2 SAT 96.9 % (95-98); ARTERIAL BLOOD GAS PCO2 34 mm/Hg (35-45); ARTERIAL BLOOD GAS PH 7.45 (7.35-7.45); ARTERIAL BLOOD GAS TCO2 24.6 mmol.L (22-28)
[2018-07-12] MEDS: Vancomycin 1gm in NS 250ml 1 GM/250 ML BAG IVPB SCH ×2 (06:11→18:44)
[2018-07-12 06:18] LABS: BASO # 0.02 K/mm3 (0.0-2.0); BASO % 0.1 % (0.0-3.0); EOS # 0.2 (0.0-0.7); EOS % 1.7 % (1.5-5.0); HEMOGLOBIN 12.7 g/dL (14.0-18.0); LYMPH # 1.4 (1.2-3.4); LYMPH % 9.9 % (22.0-35.0); MEAN CELL VOLUME 93.7 fl (80.0-105.0); MEAN CORPUSCULAR HEMOGLOBIN 30.8 pg (25.0-35.0); MEAN CORPUSCULAR HGB CONC 32.9 g/dl (31.0-37.0); MEAN PLATELET VOLUME 9.6 fl (7.0-11.0); MONO # 0.7 (0.1-0.6); MONO % 4.5 % (1.0-6.0); RBC 4.12 10^6/uL (3.5-6.1); RED CELL DISTRIBUTION WIDTH 14.1 % (11.5-14.5); WHITE BLOOD COUNT 14.3 10^3/uL (4.5-11.0)
[2018-07-12 07:58] LABS: ALB/GLOB RATIO 0.9 (1.1-1.8); ALBUMIN 3.7 g/dL (3.0-4.8); ALT/SGPT 161 U/L (7-56); AST/SGOT 73 U/L (17-59); BLOOD UREA NITROGEN 21 mg/dL (7-21); CALCIUM 9.3 mg/dL (8.4-10.5); GFR NON-AFRICAN AMERICAN > 60
--- NOTE | 2018-07-12 08:54 | CP.CCUPN ---
<Izzy Huffman - Last Filed: 07/12/18 10:45> CCU Subjective - Physician Review Events Since Last Encounter (Free Text): Izzy Huffman DO, PGY-2: ICU Progress Note Patient was seen and examined at bedside. He is currently off of Precedex. He has a GCS score of 4- E2M1V1. He has a trach-collar with an Oxygen saturation of 94% of an FIO2 of 45%. He is febrile at the time of my examination with a temperature of 99.9 F. No adverse events noted overnight. 07/12/18 08:45 07/12/18 08:58 07/12/18 10:30 CCU Objective - Vital Signs / Intake & Output Vital Signs (Last 4 hours): Vital Signs Temp Pulse 07/12/18 06:00 89 07/12/18 05:23 100.4 F H Intake and Output (Last 8hrs): Intake & Output 07/11/18 07/12/18 07/12/18 22:59 06:59 14:59 Intake Total 1400 1000 Output Total 2301 1100 Balance -901 -100 Intake: IV 100 350 Left Hand 100 350 Tube Feeding 900 450 Other 400 200 Output: Urine 2300 1100 Urethral ([place]rosco) 2300 1100 Stool 1 Other: # Bowel Movements 1 - Physical Exam Head: Positive for: Atraumatic, Normocephalic Pupils: Positive for: Sluggish Extroacular Muscles: Positive for: EOMI Conjunctiva: Positive for: Normal Mouth: Positive for: Moist Mucous Membranes Nose (Internal): Positive for: Other (dried blood nticed, packing applied) Neck: Positive for: Normal Range of Motion. Negative for: JVD, Lymphadenopathy Respiratory/Chest: Positive for: Clear to Auscultation. Negative for: Wheezes, Rhonchi Cardiovascular: Positive for: Regular Rate and Rhythm, Normal S1, S2. Negative for: Murmurs, Rub, Gallop Abdomen: Positive for: Normal Bowel Sounds. Negative for: Distention, Mass/Organomegaly Back: Positive for: Normal Inspection Upper Extremity: Positive for: Normal Inspection, NORMAL PULSES. Negative for: Cyanosis, Edema Lower Extremity: Positive for: Normal Inspection, NORMAL PULSES. Negative for: Edema, Cyanosis, Swelling, Erythema Neurological: Positive for: Other (GCS =4 E2V1M1) Skin: Positive for: Warm, Dry, Normal Color. Negative for: Rashes Psychiatric: Positive for: Other (trach collar) - Medications Active Medications: Active Medications Generic Name Dose Route Start Last Admin Trade Name Freq PRN Reason Stop Dose Admin Albuterol/Ipratropium 3 ml 07/01/18 17:28 07/08/18 16:57 Duoneb 3 Mg/0.5 Mg (3 Ml) Ud IH 3 ml Q2H PRN Administration Shortness of Breath Albuterol/Ipratropium 3 ml 07/04/18 14:00 07/12/18 07:17 Duoneb 3 Mg/0.5 Mg (3 Ml) Ud IH 3 ml [id number] XU Administration Aspirin 81 mg 07/02/18 10:30 07/11/18 10:21 Ecotrin PO 81 mg DAILY XU Administration Hydromorphone HCl 0.5 mg 07/08/18 16:49 07/11/18 20:57 Dilaudid IVP 0.5 mg Q4H PRN Administration Pain, moderate (4-7) Propofol 1,000 mg in 100 mls @ 6.314 mls/hr 07/04/18 18:28 07/09/18 08:00 Diprivan IV 0 mcg/kg/min .[id number] PRN 0 mls/hr TITRATE PER MD ORDER Titration Protocol 10 MCG/KG/MIN Midazolam 100 mg/100ml in NS 100 mg in 100 mls @ 2 mls/hr 07/06/18 07:50 07/09/18 08:15 Midazolam 100 Mg/100ml In Ns IV 0 mg/hr .Q24H PRN 0 mls/hr Sedation Titration Protocol 2 MG/HR Dexmedetomidine HCl 400 mcg in 100 mls @ 5.33 mls/hr 07/09/18 09:12 07/10/18 18:14 Precedex 400mcg/100ml IV 0.2 mcg/kg/hr .[id number] PRN 5.33 mls/hr Sedation Administration Protocol 0.2 MCG/KG/HR Cefepime HCl 1 gm in 100 mls @ 100 mls/hr 07/11/18 22:00 07/12/18 05:27 Maxipime 1gm IVPB 07/19/18 22:01 100 mls/hr Q8 XU Administration Protocol Vancomycin HCl 1 gm in 250 mls @ 167 mls/hr 07/11/18 18:45 07/12/18 06:11 Vancomycin 1gm IVPB 07/20/18 18:46 167 mls/hr Q12H XU Administration Protocol Lisinopril 5 mg 07/09/18 12:15 07/11/18 10:19 Zestril PO 5 mg DAILY XU Administration Lorazepam 2 mg 07/01/18 14:13 07/07/18 23:47 Ativan IVP 2 mg Q2H PRN Administration Anxiety Protocol Metoprolol Tartrate 25 mg 07/03/18 12:00 07/11/18 17:45 Lopressor PO 25 mg BID XU Administration Nicotine 1 patch 07/02/18 10:00 07/11/18 10:18 Nicoderm Cq TD 1 patch DAILY XU Administration Pantoprazole Sodium 40 mg 07/01/18 22:00 07/11/18 21:00 Protonix Inj IVP 40 mg Q12 XU Administration Prasugrel 10 mg 07/04/18 10:00 07/11/18 10:19 Effient PO 10 mg DAILY XU Administration Scopolamine 1 patch 07/11/18 21:30 07/11/18 22:29 Transderm-Scop TD 1 patch Q3D XU Administration Thiamine HCl 100 mg 07/11/18 12:30 07/11/18 12:38 Vitamin B1 Tab PO Not Given DAILY XU - Patient Studies Lab Studies: Lab Studies 07/12/18 07/12/18 07/12/18 Range/Units 08:04 05:30 05:30 WBC (4.5-11.0) 10^3/uL RBC (3.5-6.1) 10^6/uL Hgb (14.0-18.0) g/dL Hct (42.0-52.0) % MCV (80.0-105.0) fl MCH (25.0-35.0) pg MCHC (31.0-37.0) g/dl RDW (11.5-14.5) % Plt Count (120.0-450.0) 10^3/uL MPV (7.0-11.0) fl Neut % (Auto) (50.0-68.0) % Lymph % (Auto) (22.0-35.0) % [place] % (Auto) (1.0-6.0) % Eos % (Auto) (1.5-5.0) % Baso % (Auto) (0.0-3.0) % Lymph # (Auto) (1.2-3.4) [place] # (Auto) (0.1-0.6) Eos # (Auto) (0.0-0.7) Baso # (Auto) (0.0-2.0) K/mm3 Absolute Neuts (auto) (1.4-6.5) pCO2 34 L (35-45) mm/Hg pO2 69.0 L (80-100) mm/Hg HCO3 23.6 (21-28) mmol/L ABG pH 7.45 (7.35-7.45) ABG Total CO2 24.6 (22-28) mmol.L ABG O2 Saturation 96.9 (95-98) % ABG O2 Content 17.7 (15-23) ML/dl ABG Base Excess 0.1 (-2.0-3.0) mmol/L ABG Hemoglobin 13.4 (11.7-17.4) g/dL ABG Carboxyhemoglobin 2.0 H (0.5-1.5) % POC ABG HHb (Measured) 3.0 (0-5) % ABG Methemoglobin 0.9 (0.0-3.0) % ABG O2 Capacity 18.3 (16-24) mL/dl Hgb O2 Saturation 94.1 L (95.0-98.0) % FiO2 60.0 % Sodium 139 (132-148) mmol/L Potassium 4.2 (3.6-5.0) mmol/L Chloride 104 (98-107) mmol/L Carbon Dioxide 25 (21-33) mmol/L Anion Gap 15 (10-20) BUN 21 (7-21) mg/dL Creatinine 0.8 (0.8-1.5) mg/dl Est GFR ( Amer) > 60 Est GFR (Non-Af Amer) > 60 POC Glucose (mg/dL) 134 H (65-110) mg/dL Random Glucose 119 H (70-110) mg/dL Calcium 9.3 (8.4-10.5) mg/dL Phosphorus 4.2 (2.5-4.5) mg/dL Magnesium 2.3 H (1.7-2.2) mg/dL Total Bilirubin 0.6 (0.2-1.3) mg/dL AST 73 H D (17-59) U/L ALT 161 H (7-56) U/L Alkaline Phosphatase 69 (38-126) U/L Total Protein 7.8 (5.8-8.3) g/dL Albumin 3.7 (3.0-4.8) g/dL Globulin 4.1 gm/dL Albumin/Globulin Ratio 0.9 L (1.1-1.8) 07/12/18 07/12/18 07/11/18 Range/Units 05:30 04:46 22:30 WBC 14.3 H (4.5-11.0) 10^3/uL RBC 4.12 (3.5-6.1) 10^6/uL Hgb 12.7 L (14.0-18.0) g/dL Hct 38.6 L (42.0-52.0) % MCV 93.7 (80.0-105.0) fl MCH 30.8 (25.0-35.0) pg MCHC 32.9 (31.0-37.0) g/dl RDW 14.1 (11.5-14.5) % Plt Count 336 (120.0-450.0) 10^3/uL MPV 9.6 (7.0-11.0) fl Neut % (Auto) 83.8 H (50.0-68.0) % Lymph % (Auto) 9.9 L (22.0-35.0) % [place] % (Auto) 4.5 (1.0-6.0) % Eos % (Auto) 1.7 (1.5-5.0) % Baso % (Auto) 0.1 (0.0-3.0) % Lymph # (Auto) 1.4 (1.2-3.4) [place] # (Auto) 0.7 H (0.1-0.6) Eos # (Auto) 0.2 (0.0-0.7) Baso # (Auto) 0.02 (0.0-2.0) K/mm3 Absolute Neuts (auto) 11.97 H (1.4-6.5) pCO2 (35-45) mm/Hg pO2 (80-100) mm/Hg HCO3 (21-28) mmol/L ABG pH (7.35-7.45) ABG Total CO2 (22-28) mmol.L ABG O2 Saturation (95-98) % ABG O2 Content (15-23) ML/dl ABG Base Excess (-2.0-3.0) mmol/L ABG Hemoglobin (11.7-17.4) g/dL ABG Carboxyhemoglobin (0.5-1.5) % POC ABG HHb (Measured) (0-5) % ABG Methemoglobin (0.0-3.0) % ABG O2 Capacity (16-24) mL/dl Hgb O2 Saturation (95.0-98.0) % FiO2 % Sodium (132-148) mmol/L Potassium (3.6-5.0) mmol/L Chloride (98-107) mmol/L Carbon Dioxide (21-33) mmol/L Anion Gap (10-20) BUN (7-21) mg/dL Creatinine (0.8-1.5) mg/dl Est GFR ( Amer) Est GFR (Non-Af Amer) POC Glucose (mg/dL) 106 126 H (65-110) mg/dL Random Glucose (70-110) mg/dL Calcium (8.4-10.5) mg/dL Phosphorus (2.5-4.5) mg/dL Magnesium (1.7-2.2) mg/dL Total Bilirubin (0.2-1.3) mg/dL AST (17-59) U/L ALT (7-56) U/L Alkaline Phosphatase (38-126) U/L Total Protein (5.8-8.3) g/dL Albumin (3.0-4.8) g/dL Globulin gm/dL Albumin/Globulin Ratio (1.1-1.8) 07/11/18 07/11/18 07/11/18 Range/Units 21:05 17:43 10:47 WBC (4.5-11.0) 10^3/uL RBC (3.5-6.1) 10^6/uL Hgb (14.0-18.0) g/dL Hct (42.0-52.0) % MCV (80.0-105.0) fl MCH (25.0-35.0) pg MCHC (31.0-37.0) g/dl RDW (11.5-14.5) % Plt Count (120.0-450.0) 10^3/uL MPV (7.0-11.0) fl Neut % (Auto) (50.0-68.0) % Lymph % (Auto) (22.0-35.0) % [place] % (Auto) (1.0-6.0) % Eos % (Auto) (1.5-5.0) % Baso % (Auto) (0.0-3.0) % Lymph # (Auto) (1.2-3.4) [place] # (Auto) (0.1-0.6) Eos # (Auto) (0.0-0.7) Baso # (Auto) (0.0-2.0) K/mm3 Absolute Neuts (auto) (1.4-6.5) pCO2 35 (35-45) mm/Hg pO2 72.0 L (80-100) mm/Hg HCO3 23.8 (21-28) mmol/L ABG pH 7.44 (7.35-7.45) ABG Total CO2 24.9 (22-28) mmol.L ABG O2 Saturation 97.1 (95-98) % ABG O2 Content 16.3 (15-23) ML/dl ABG Base Excess 0.0 (-2.0-3.0) mmol/L ABG Hemoglobin 12.3 (11.7-17.4) g/dL ABG Carboxyhemoglobin 2.1 H (0.5-1.5) % POC ABG HHb (Measured) 2.8 (0-5) % ABG Methemoglobin 1.1 (0.0-3.0) % ABG O2 Capacity 16.8 (16-24) mL/dl Hgb O2 Saturation 94.0 L (95.0-98.0) % FiO2 50.0 % Sodium (132-148) mmol/L Potassium (3.6-5.0) mmol/L Chloride (98-107) mmol/L Carbon Dioxide (21-33) mmol/L Anion Gap (10-20) BUN (7-21) mg/dL Creatinine (0.8-1.5) mg/dl Est GFR ( Amer) Est GFR (Non-Af Amer) POC Glucose (mg/dL) 124 H 134 H (65-110) mg/dL Random Glucose (70-110) mg/dL Calcium (8.4-10.5) mg/dL Phosphorus (2.5-4.5) mg/dL Magnesium (1.7-2.2) mg/dL Total Bilirubin (0.2-1.3) mg/dL AST (17-59) U/L ALT (7-56) U/L Alkaline Phosphatase (38-126) U/L Total Protein (5.8-8.3) g/dL Albumin (3.0-4.8) g/dL Globulin gm/dL Albumin/Globulin Ratio (1.1-1.8) 07/11/18 Range/Units 07:26 WBC (4.5-11.0) 10^3/uL RBC (3.5-6.1) 10^6/uL Hgb (14.0-18.0) g/dL Hct (42.0-52.0) % MCV (80.0-105.0) fl MCH (25.0-35.0) pg MCHC (31.0-37.0) g/dl RDW (11.5-14.5) % Plt Count (120.0-450.0) 10^3/uL MPV (7.0-11.0) fl Neut % (Auto) (50.0-68.0) % Lymph % (Auto) (22.0-35.0) % [place] % (Auto) (1.0-6.0) % Eos % (Auto) (1.5-5.0) % Baso % (Auto) (0.0-3.0) % Lymph # (Auto) (1.2-3.4) [place] # (Auto) (0.1-0.6) Eos # (Auto) (0.0-0.7) Baso # (Auto) (0.0-2.0) K/mm3 Absolute Neuts (auto) (1.4-6.5) pCO2 (35-45) mm/Hg pO2 (80-100) mm/Hg HCO3 (21-28) mmol/L ABG pH (7.35-7.45) ABG Total CO2 (22-28) mmol.L ABG O2 Saturation (95-98) % ABG O2 Content (15-23) ML/dl ABG Base Excess (-2.0-3.0) mmol/L ABG Hemoglobin (11.7-17.4) g/dL ABG Carboxyhemoglobin (0.5-1.5) % POC ABG HHb (Measured) (0-5) % ABG Methemoglobin (0.0-3.0) % ABG O2 Capacity (16-24) mL/dl Hgb O2 Saturation (95.0-98.0) % FiO2 % Sodium (132-148) mmol/L Potassium (3.6-5.0) mmol/L Chloride (98-107) mmol/L Carbon Dioxide (21-33) mmol/L Anion Gap (10-20) BUN (7-21) mg/dL Creatinine (0.8-1.5) mg/dl Est GFR ( Amer) Est GFR (Non-Af Amer) POC Glucose (mg/dL) 124 H (65-110) mg/dL Random Glucose (70-110) mg/dL Calcium (8.4-10.5) mg/dL Phosphorus (2.5-4.5) mg/dL Magnesium (1.7-2.2) mg/dL Total Bilirubin (0.2-1.3) mg/dL AST (17-59) U/L ALT (7-56) U/L Alkaline Phosphatase (38-126) U/L Total Protein (5.8-8.3) g/dL Albumin (3.0-4.8) g/dL Globulin gm/dL Albumin/Globulin Ratio (1.1-1.8) Laboratory Results - last 24 hr 07/11/18 07/11/18 07/11/18 07:26 10:47 17:43 WBC RBC Hgb Hct MCV MCH MCHC RDW Plt Count MPV Neut % (Auto) Lymph % (Auto) [place] % (Auto) Eos % (Auto) Baso % (Auto) Lymph # (Auto) [place] # (Auto) Eos # (Auto) Baso # (Auto) Absolute Neuts (auto) pCO2 pO2 HCO3 ABG pH ABG Total CO2 ABG O2 Saturation ABG O2 Content ABG Base Excess ABG Hemoglobin ABG Carboxyhemoglobin POC ABG HHb (Measured) ABG Methemoglobin ABG O2 Capacity Hgb O2 Saturation FiO2 Sodium Potassium Chloride Carbon Dioxide Anion Gap BUN Creatinine Est GFR ( Amer) Est GFR (Non-Af Amer) POC Glucose (mg/dL) 124 H 134 H 124 H Random Glucose Calcium Phosphorus Magnesium Total Bilirubin AST ALT Alkaline Phosphatase Total Protein Albumin Globulin Albumin/Globulin Ratio 07/11/18 07/11/18 07/12/18 21:05 22:30 04:46 WBC RBC Hgb Hct MCV MCH MCHC RDW Plt Count MPV Neut % (Auto) Lymph % (Auto) [place] % (Auto) Eos % (Auto) Baso % (Auto) Lymph # (Auto) [place] # (Auto) Eos # (Auto) Baso # (Auto) Absolute Neuts (auto) pCO2 35 pO2 72.0 L HCO3 23.8 ABG pH 7.44 ABG Total CO2 24.9 ABG O2 Saturation 97.1 ABG O2 Content 16.3 ABG Base Excess 0.0 ABG Hemoglobin 12.3 ABG Carboxyhemoglobin 2.1 H POC ABG HHb (Measured) 2.8 ABG Methemoglobin 1.1 ABG O2 Capacity 16.8 Hgb O2 Saturation 94.0 L FiO2 50.0 Sodium Potassium Chloride Carbon Dioxide Anion Gap BUN Creatinine Est GFR ( Amer) Est GFR (Non-Af Amer) POC Glucose (mg/dL) 126 H 106 Random Glucose Calcium Phosphorus Magnesium Total Bilirubin AST ALT Alkaline Phosphatase Total Protein Albumin Globulin Albumin/Globulin Ratio 07/12/18 07/12/18 07/12/18 05:30 05:30 05:30 WBC 14.3 H RBC 4.12 Hgb 12.7 L Hct 38.6 L MCV 93.7 MCH 30.8 MCHC 32.9 RDW 14.1 Plt Count 336 MPV 9.6 Neut % (Auto) 83.8 H Lymph % (Auto) 9.9 L [place] % (Auto) 4.5 Eos % (Auto) 1.7 Baso % (Auto) 0.1 Lymph # (Auto) 1.4 [place] # (Auto) 0.7 H Eos # (Auto) 0.2 Baso # (Auto) 0.02 Absolute Neuts (auto) 11.97 H pCO2 34 L pO2 69.0 L HCO3 23.6 ABG pH 7.45 ABG Total CO2 24.6 ABG O2 Saturation 96.9 ABG O2 Content 17.7 ABG Base Excess 0.1 ABG Hemoglobin 13.4 ABG Carboxyhemoglobin 2.0 H POC ABG HHb (Measured) 3.0 ABG Methemoglobin 0.9 ABG O2 Capacity 18.3 Hgb O2 Saturation 94.1 L FiO2 60.0 Sodium 139 Potassium 4.2 Chloride 104 Carbon Dioxide 25 Anion Gap 15 BUN 21 Creatinine 0.8 Est GFR ( Amer) > 60 Est GFR (Non-Af Amer) > 60 POC Glucose (mg/dL) Random Glucose 119 H Calcium 9.3 Phosphorus 4.2 Magnesium 2.3 H Total Bilirubin 0.6 AST 73 H D ALT 161 H Alkaline Phosphatase 69 Total Protein 7.8 Albumin 3.7 Globulin 4.1 Albumin/Globulin Ratio 0.9 L 07/12/18 08:04 WBC RBC Hgb Hct MCV MCH MCHC RDW Plt Count MPV Neut % (Auto) Lymph % (Auto) [place] % (Auto) Eos % (Auto) Baso % (Auto) Lymph # (Auto) [place] # (Auto) Eos # (Auto) Baso # (Auto) Absolute Neuts (auto) pCO2 pO2 HCO3 ABG pH ABG Total CO2 ABG O2 Saturation ABG O2 Content ABG Base Excess ABG Hemoglobin ABG Carboxyhemoglobin POC ABG HHb (Measured) ABG Methemoglobin ABG O2 Capacity Hgb O2 Saturation FiO2 Sodium Potassium Chloride Carbon Dioxide Anion Gap BUN Creatinine Est GFR ( Amer) Est GFR (Non-Af Amer) POC Glucose (mg/dL) 134 H Random Glucose Calcium Phosphorus Magnesium Total Bilirubin AST ALT Alkaline Phosphatase Total Protein Albumin Globulin Albumin/Globulin Ratio Radiology Impressions: Radiology Impressions Chest X-Ray 07/11/18 12:36 IMPRESSION: The nasogastric tube is in satisfactory position Fingerstick Blood Sugar Results: 106 Review of Systems - Review of Systems Systems not reviewed;Unavailable: Altered Mental Status Critical Care Progress Note - Ventilator Checklist Head of Bed 30 Degrees: Yes Daily Sedation Vacation: Yes PUD Prophalyxis: Yes DVT Prophylaxis: Yes - Extremities/Vascular Does the Patient have a [place]rosco Catheter?: Yes Does the Patient need a [place]o Catheter?: Yes Catheter Insertion Criteria: Patient has acute urinary retention or bladder outlet obstruction - Restraints Justification for Restraints: High risk for removing IV access - Prophylaxis GI Prophylaxis GI: PPI - Prophylaxis DVT Prophylaxis DVT: Heparin SQ Assessment/Plan - Assessment and Plan (Free Text) Assessment: 53 y/o male admitted to ICU s/p VFib cardiac arrest with subsequent PCI with RCA stent placed. He sustained anoxic cerebral injury with diffuse cerebral edema requiring intubation. Now on trach collar with FIO2 of 45%. Neuro - GCS=6 E2V1M1 - anoxic brain injury, VFib cardiac arrest with subsequent multiple defibrillation, PCI and RCA ANALISA placement - precedex drip discontinued - hypothermic protocol not initiated on admission to ICU due to epistaxis and hemoptysis at that time - CT head 07/03/18: no ICH, diffuse cerebral edema, findings consistent with anoxic brain injury - Video EEG 07/03/18: no seizure activity. Severe slowing/attenuation - continue ativan prn for agitation - continue thiamine 100 mg for neurocognitive activation as per neuro - neuro consulted, Dr King Cardio - cardiac arrest due to VFib s/p PCI with RCA ANALISA - aspirin 81, effient 10 mg, lisinopril 5 mg , lopressor 25 BID - statins held due to elevated LFT - Echo 07/02/18: LVEF 45% LVH with hypokinesis, mild pulm HTN - cardiology following, Dr Patel Pulmonary - Scopolamine patch for increased secretions - trach collar with 45% FIO2 - COPD, chronic smoker, duonebs xu q6h and prn q2h - maintain O2>92% - Continue with oral care - Review of chest X-ray on 07/11 shows no infiltrate GI - transaminitis likely due to shock liver in the setting of cardiac arrest - ALT elevated 3 ULN; holding statin - history of alcoholism, obese - hepatitis A/B/C NEGATIVE - U/S abdomen: fibro/fatty liver infiltration - continue NG enteral feeding with current rate is 75 mls/hr of Jevity 1.2 - GI ppx Protonix q12 - GI consulted, continue NG feeding for one month then re-evaluate for possible PEG placement since this's a high risk procedure and not an emergency. Effient would need to be held up to 7 days before PEG could be placed. Renal - rhabdomyolysis resolved - replete lytes as needed - hold IVF - maintain euvolemia, euglycemia - UDS positive for amphetamine, benzo ID - febrile overnight with leukocytosis - On Cefepime and Vancomycin empirically - tracheal aspiration positive for MSSA - blood and urine cx negative to date - repeat procalcitonin ordered on 07/11 - HIV, legionella, MRSA negative - ID consulted, Dr Viviana Lew - H/H stable - continue monitoring - DVT SCD, Heparin sq Dispo: [employer] and family working on transferring the patient to [facility] facility in [place] Case was reviewed and discussed with attending physician, Dr. So <Jin So - Last Filed: 07/12/18 13:40> CCU Objective - Vital Signs / Intake & Output Vital Signs (Last 4 hours): Vital Signs Pulse BP 07/12/18 10:53 148/93 H 07/12/18 10:51 94 H 148/93 H Intake and Output (Last 8hrs): Intake & Output 07/11/18 07/12/18 07/12/18 22:59 06:59 14:59 Intake Total 1400 1000 Output Total 2301 1100 Balance -901 -100 Intake: IV 100 350 Left Hand 100 350 Tube Feeding 900 450 Other 400 200 Output: Urine 2300 1100 Urethral ([place]) 2300 1100 Stool 1 Other: # Bowel Movements 1 - Medications Active Medications: Active Medications Generic Name Dose Route Start Last Admin Trade Name Freq PRN Reason Stop Dose Admin Albuterol/Ipratropium 3 ml 07/01/18 17:28 07/08/18 16:57 Duoneb 3 Mg/0.5 Mg (3 Ml) Ud IH 3 ml Q2H PRN Administration Shortness of Breath Albuterol/Ipratropium 3 ml 07/04/18 14:00 07/12/18 13:13 Duoneb 3 Mg/0.5 Mg (3 Ml) Ud IH 3 ml [id number] XU Administration Aspirin 81 mg 07/02/18 10:30 07/12/18 10:53 Ecotrin PO 81 mg DAILY XU Administration Hydromorphone HCl 0.5 mg 07/08/18 16:49 07/11/18 20:57 Dilaudid IVP 0.5 mg Q4H PRN Administration Pain, moderate (4-7) Propofol 1,000 mg in 100 mls @ 6.314 mls/hr 07/04/18 18:28 07/09/18 08:00 Diprivan IV 0 mcg/kg/min .[id number] PRN 0 mls/hr TITRATE PER MD ORDER Titration Protocol 10 MCG/KG/MIN Midazolam 100 mg/100ml in NS 100 mg in 100 mls @ 2 mls/hr 07/06/18 07:50 07/09/18 08:15 Midazolam 100 Mg/100ml In Ns IV 0 mg/hr .Q24H PRN 0 mls/hr Sedation Titration Protocol 2 MG/HR Dexmedetomidine HCl 400 mcg in 100 mls @ 5.33 mls/hr 07/09/18 09:12 07/10/18 18:14 Precedex 400mcg/100ml IV 0.2 mcg/kg/hr .[id number] PRN 5.33 mls/hr Sedation Administration Protocol 0.2 MCG/KG/HR Cefepime HCl 1 gm in 100 mls @ 100 mls/hr 07/11/18 22:00 07/12/18 05:27 Maxipime 1gm IVPB 07/19/18 22:01 100 mls/hr Q8 XU Administration Protocol Vancomycin HCl 1 gm in 250 mls @ 167 mls/hr 07/11/18 18:45 07/12/18 06:11 Vancomycin 1gm IVPB 07/20/18 18:46 167 mls/hr Q12H XU Administration Protocol Lisinopril 10 mg 07/12/18 10:36 Zestril PO DAILY XU Lorazepam 2 mg 07/01/18 14:13 07/07/18 23:47 Ativan IVP 2 mg Q2H PRN Administration Anxiety Protocol Metoprolol Tartrate 25 mg 07/03/18 12:00 07/12/18 10:51 Lopressor PO 25 mg BID XU Administration Nicotine 1 patch 07/02/18 10:00 07/12/18 10:55 Nicoderm Cq TD 1 patch DAILY XU Administration Pantoprazole Sodium 40 mg 07/01/18 22:00 07/12/18 10:53 Protonix Inj IVP 40 mg Q12 XU Administration Prasugrel 10 mg 07/04/18 10:00 07/12/18 10:52 Effient PO 10 mg DAILY XU Administration Scopolamine 1 patch 07/11/18 21:30 07/11/18 22:29 Transderm-Scop TD 1 patch Q3D XU Administration Thiamine HCl 100 mg 07/11/18 12:30 07/12/18 10:51 Vitamin B1 Tab PO 100 mg DAILY XU Administration - Patient Studies Lab Studies: Lab Studies 07/12/18 07/12/18 07/12/18 Range/Units 11:31 08:04 05:30 WBC (4.5-11.0) 10^3/uL RBC (3.5-6.1) 10^6/uL Hgb (14.0-18.0) g/dL Hct (42.0-52.0) % MCV (80.0-105.0) fl MCH (25.0-35.0) pg MCHC (31.0-37.0) g/dl RDW (11.5-14.5) % Plt Count (120.0-450.0) 10^3/uL MPV (7.0-11.0) fl Neut % (Auto) (50.0-68.0) % Lymph % (Auto) (22.0-35.0) % [place] % (Auto) (1.0-6.0) % Eos % (Auto) (1.5-5.0) % Baso % (Auto) (0.0-3.0) % Lymph # (Auto) (1.2-3.4) [place] # (Auto) (0.1-0.6) Eos # (Auto) (0.0-0.7) Baso # (Auto) (0.0-2.0) K/mm3 Absolute Neuts (auto) (1.4-6.5) pCO2 34 L (35-45) mm/Hg pO2 69.0 L (80-100) mm/Hg HCO3 23.6 (21-28) mmol/L ABG pH 7.45 (7.35-7.45) ABG Total CO2 24.6 (22-28) mmol.L ABG O2 Saturation 96.9 (95-98) % ABG O2 Content 17.7 (15-23) ML/dl ABG Base Excess 0.1 (-2.0-3.0) mmol/L ABG Hemoglobin 13.4 (11.7-17.4) g/dL ABG Carboxyhemoglobin 2.0 H (0.5-1.5) % POC ABG HHb (Measured) 3.0 (0-5) % ABG Methemoglobin 0.9 (0.0-3.0) % ABG O2 Capacity 18.3 (16-24) mL/dl Hgb O2 Saturation 94.1 L (95.0-98.0) % FiO2 60.0 % Sodium (132-148) mmol/L Potassium (3.6-5.0) mmol/L Chloride (98-107) mmol/L Carbon Dioxide (21-33) mmol/L Anion Gap (10-20) BUN (7-21) mg/dL Creatinine (0.8-1.5) mg/dl Est GFR ( Amer) Est GFR (Non-Af Amer) POC Glucose (mg/dL) 124 H 134 H (65-110) mg/dL Random Glucose (70-110) mg/dL Calcium (8.4-10.5) mg/dL Phosphorus (2.5-4.5) mg/dL Magnesium (1.7-2.2) mg/dL Total Bilirubin (0.2-1.3) mg/dL AST (17-59) U/L ALT (7-56) U/L Alkaline Phosphatase (38-126) U/L Total Protein (5.8-8.3) g/dL Albumin (3.0-4.8) g/dL Globulin gm/dL Albumin/Globulin Ratio (1.1-1.8) 07/12/18 07/12/18 07/12/18 Range/Units 05:30 05:30 04:46 WBC 14.3 H (4.5-11.0) 10^3/uL RBC 4.12 (3.5-6.1) 10^6/uL Hgb 12.7 L (14.0-18.0) g/dL Hct 38.6 L (42.0-52.0) % MCV 93.7 (80.0-105.0) fl MCH 30.8 (25.0-35.0) pg MCHC 32.9 (31.0-37.0) g/dl RDW 14.1 (11.5-14.5) % Plt Count 336 (120.0-450.0) 10^3/uL MPV 9.6 (7.0-11.0) fl Neut % (Auto) 83.8 H (50.0-68.0) % Lymph % (Auto) 9.9 L (22.0-35.0) % [place] % (Auto) 4.5 (1.0-6.0) % Eos % (Auto) 1.7 (1.5-5.0) % Baso % (Auto) 0.1 (0.0-3.0) % Lymph # (Auto) 1.4 (1.2-3.4) [place] # (Auto) 0.7 H (0.1-0.6) Eos # (Auto) 0.2 (0.0-0.7) Baso # (Auto) 0.02 (0.0-2.0) K/mm3 Absolute Neuts (auto) 11.97 H (1.4-6.5) pCO2 (35-45) mm/Hg pO2 (80-100) mm/Hg HCO3 (21-28) mmol/L ABG pH (7.35-7.45) ABG Total CO2 (22-28) mmol.L ABG O2 Saturation (95-98) % ABG O2 Content (15-23) ML/dl ABG Base Excess (-2.0-3.0) mmol/L ABG Hemoglobin (11.7-17.4) g/dL ABG Carboxyhemoglobin (0.5-1.5) % POC ABG HHb (Measured) (0-5) % ABG Methemoglobin (0.0-3.0) % ABG O2 Capacity (16-24) mL/dl Hgb O2 Saturation (95.0-98.0) % FiO2 % Sodium 139 (132-148) mmol/L Potassium 4.2 (3.6-5.0) mmol/L Chloride 104 (98-107) mmol/L Carbon Dioxide 25 (21-33) mmol/L Anion Gap 15 (10-20) BUN 21 (7-21) mg/dL Creatinine 0.8 (0.8-1.5) mg/dl Est GFR ( Amer) > 60 Est GFR (Non-Af Amer) > 60 POC Glucose (mg/dL) 106 (65-110) mg/dL Random Glucose 119 H (70-110) mg/dL Calcium 9.3 (8.4-10.5) mg/dL Phosphorus 4.2 (2.5-4.5) mg/dL Magnesium 2.3 H (1.7-2.2) mg/dL Total Bilirubin 0.6 (0.2-1.3) mg/dL AST 73 H D (17-59) U/L ALT 161 H (7-56) U/L Alkaline Phosphatase 69 (38-126) U/L Total Protein 7.8 (5.8-8.3) g/dL Albumin 3.7 (3.0-4.8) g/dL Globulin 4.1 gm/dL Albumin/Globulin Ratio 0.9 L (1.1-1.8) 07/11/18 07/11/18 07/11/18 Range/Units 22:30 21:05 17:43 WBC (4.5-11.0) 10^3/uL RBC (3.5-6.1) 10^6/uL Hgb (14.0-18.0) g/dL Hct (42.0-52.0) % MCV (80.0-105.0) fl MCH (25.0-35.0) pg MCHC (31.0-37.0) g/dl RDW (11.5-14.5) % Plt Count (120.0-450.0) 10^3/uL MPV (7.0-11.0) fl Neut % (Auto) (50.0-68.0) % Lymph % (Auto) (22.0-35.0) % [place] % (Auto) (1.0-6.0) % Eos % (Auto) (1.5-5.0) % Baso % (Auto) (0.0-3.0) % Lymph # (Auto) (1.2-3.4) [place] # (Auto) (0.1-0.6) Eos # (Auto) (0.0-0.7) Baso # (Auto) (0.0-2.0) K/mm3 Absolute Neuts (auto) (1.4-6.5) pCO2 35 (35-45) mm/Hg pO2 72.0 L (80-100) mm/Hg HCO3 23.8 (21-28) mmol/L ABG pH 7.44 (7.35-7.45) ABG Total CO2 24.9 (22-28) mmol.L ABG O2 Saturation 97.1 (95-98) % ABG O2 Content 16.3 (15-23) ML/dl ABG Base Excess 0.0 (-2.0-3.0) mmol/L ABG Hemoglobin 12.3 (11.7-17.4) g/dL ABG Carboxyhemoglobin 2.1 H (0.5-1.5) % POC ABG HHb (Measured) 2.8 (0-5) % ABG Methemoglobin 1.1 (0.0-3.0) % ABG O2 Capacity 16.8 (16-24) mL/dl Hgb O2 Saturation 94.0 L (95.0-98.0) % FiO2 50.0 % Sodium (132-148) mmol/L Potassium (3.6-5.0) mmol/L Chloride (98-107) mmol/L Carbon Dioxide (21-33) mmol/L Anion Gap (10-20) BUN (7-21) mg/dL Creatinine (0.8-1.5) mg/dl Est GFR ( Amer) Est GFR (Non-Af Amer) POC Glucose (mg/dL) 126 H 124 H (65-110) mg/dL Random Glucose (70-110) mg/dL Calcium (8.4-10.5) mg/dL Phosphorus (2.5-4.5) mg/dL Magnesium (1.7-2.2) mg/dL Total Bilirubin (0.2-1.3) mg/dL AST (17-59) U/L ALT (7-56) U/L Alkaline Phosphatase (38-126) U/L Total Protein (5.8-8.3) g/dL Albumin (3.0-4.8) g/dL Globulin gm/dL Albumin/Globulin Ratio (1.1-1.8) Laboratory Results - last 24 hr 07/11/18 07/11/18 07/11/18 17:43 21:05 22:30 WBC RBC Hgb Hct MCV MCH MCHC RDW Plt Count MPV Neut % (Auto) Lymph % (Auto) [place] % (Auto) Eos % (Auto) Baso % (Auto) Lymph # (Auto) [place] # (Auto) Eos # (Auto) Baso # (Auto) Absolute Neuts (auto) pCO2 35 pO2 72.0 L HCO3 23.8 ABG pH 7.44 ABG Total CO2 24.9 ABG O2 Saturation 97.1 ABG O2 Content 16.3 ABG Base Excess 0.0 ABG Hemoglobin 12.3 ABG Carboxyhemoglobin 2.1 H POC ABG HHb (Measured) 2.8 ABG Methemoglobin 1.1 ABG O2 Capacity 16.8 Hgb O2 Saturation 94.0 L FiO2 50.0 Sodium Potassium Chloride Carbon Dioxide Anion Gap BUN Creatinine Est GFR ( Amer) Est GFR (Non-Af Amer) POC Glucose (mg/dL) 124 H 126 H Random Glucose Calcium Phosphorus Magnesium Total Bilirubin AST ALT Alkaline Phosphatase Total Protein Albumin Globulin Albumin/Globulin Ratio 07/12/18 07/12/18 07/12/18 04:46 05:30 05:30 WBC 14.3 H RBC 4.12 Hgb 12.7 L Hct 38.6 L MCV 93.7 MCH 30.8 MCHC 32.9 RDW 14.1 Plt Count 336 MPV 9.6 Neut % (Auto) 83.8 H Lymph % (Auto) 9.9 L [place] % (Auto) 4.5 Eos % (Auto) 1.7 Baso % (Auto) 0.1 Lymph # (Auto) 1.4 [place] # (Auto) 0.7 H Eos # (Auto) 0.2 Baso # (Auto) 0.02 Absolute Neuts (auto) 11.97 H pCO2 pO2 HCO3 ABG pH ABG Total CO2 ABG O2 Saturation ABG O2 Content ABG Base Excess ABG Hemoglobin ABG Carboxyhemoglobin POC ABG HHb (Measured) ABG Methemoglobin ABG O2 Capacity Hgb O2 Saturation FiO2 Sodium 139 Potassium 4.2 Chloride 104 Carbon Dioxide 25 Anion Gap 15 BUN 21 Creatinine 0.8 Est GFR ( Amer) > 60 Est GFR (Non-Af Amer) > 60 POC Glucose (mg/dL) 106 Random Glucose 119 H Calcium 9.3 Phosphorus 4.2 Magnesium 2.3 H Total Bilirubin 0.6 AST 73 H D ALT 161 H Alkaline Phosphatase 69 Total Protein 7.8 Albumin 3.7 Globulin 4.1 Albumin/Globulin Ratio 0.9 L 07/12/18 07/12/18 07/12/18 05:30 08:04 11:31 WBC RBC Hgb Hct MCV MCH MCHC RDW Plt Count MPV Neut % (Auto) Lymph % (Auto) [place] % (Auto) Eos % (Auto) Baso % (Auto) Lymph # (Auto) [place] # (Auto) Eos # (Auto) Baso # (Auto) Absolute Neuts (auto) pCO2 34 L pO2 69.0 L HCO3 23.6 ABG pH 7.45 ABG Total CO2 24.6 ABG O2 Saturation 96.9 ABG O2 Content 17.7 ABG Base Excess 0.1 ABG Hemoglobin 13.4 ABG Carboxyhemoglobin 2.0 H POC ABG HHb (Measured) 3.0 ABG Methemoglobin 0.9 ABG O2 Capacity 18.3 Hgb O2 Saturation 94.1 L FiO2 60.0 Sodium Potassium Chloride Carbon Dioxide Anion Gap BUN Creatinine Est GFR ( Amer) Est GFR (Non-Af Amer) POC Glucose (mg/dL) 134 H 124 H Random Glucose Calcium Phosphorus Magnesium Total Bilirubin AST ALT Alkaline Phosphatase Total Protein Albumin Globulin Albumin/Globulin Ratio Radiology Impressions: Radiology Impressions Chest X-Ray 07/11/18 12:36 IMPRESSION: The nasogastric tube is in satisfactory position Attending/Attestation - Attestation I have personally seen and examined this patient.: Yes I have fully participated in the care of the patient.: Yes I have reviewed all pertinent clinical information: Yes Notes (Text): 07/12/18 13:32 53 yo with anoxic brain injury after cardiac arrest. still not following commands, tolerates trach collar for more then 24 hours, fi02 45% 02sat 94%-->will proceed with conservative fluid and 02 management, HOB>35, oral hygiene. low grade fever-->sputum showed MSSA, on cefepime, ID svc is following patient as well-->will touch base to de-escalate vanco. dose of lasix given. CXR-no active pulmonary disease. renal function stable. ok to downgrade to tele. pulm toilet ccm time 40 min
--- NOTE | 2018-07-12 12:23 | PN ---
DATE: 07/12/2018 SUBJECTIVE: The patient is in bed, in no acute distress but has continued to have fevers. PHYSICAL EXAMINATION: VITAL SIGNS: Temperature is 100.4, pulse of 84, blood pressure is 145/89. HEENT: Unremarkable. NECK: Supple. LUNGS: Have decreased breath sounds. HEART: Normal S1 and S2. ABDOMEN: Soft. LABORATORY DATA: White count of 14,300, hemoglobin of 12, platelets of 336. Coagulation is noted. Chemistries reveals the BUN of 21, creatinine of 0.8. Alk phos is 161. AST is 73. Urinalysis is noted. Toxicology is noted. Serology is reviewed. Urine for Legionella is negative. HIV is negative. Hepatitis profile is negative. Microbiology reveals his trach site is noted. Review of orders reveals that the repeat blood cultures and the repeat urine cultures and the sputum cultures are pending and repeat MRSA screen is pending and the procalcitonin is pending. The patient is now on cefepime and vancomycin. Creatinine is holding at 0.8. The patient's chest x-ray from yesterday, no active lung disease. ASSESSMENT AND PLAN: This is a 53-year-old male who has a history of alcoholism, obesity, hypertension, tobacco abuse, elevated troponin, had refused cardiac catheterization, had a cardiac arrest, ventricular fibrillation. He then had cardiac cath with stenting in the right coronary artery and intra-aortic balloon pump. Developed sepsis and aspiration pneumonia with a sensitive Staphylococcus aureus, ventilator-dependent respiratory failure, anoxic brain injury, status post cardiac arrest, now has a new systemic inflammatory response syndrome. Repeat panculture is pending, on vanco and Maxipime day #2, pending repeat pancultures and workup including procalcitonin. We will follow with you. Dr. Sylvie Huffman's progress note from today is reviewed and the patient does a have a trach collar. We will follow with you. Colton Michelle MD
--- NOTE | 2018-07-12 13:13 | PN ---
DATE: 07/12/2018 SUBJECTIVE: I saw him in the intensive care unit today. I also discussed with the psych social worker, but transferred him out to telemetry. He is still on trach collar. He has not opened his eyes today so far. He has Cardiology consult, Neurology consult, Infectious Disease consult, and ENT consult. PHYSICAL EXAMINATION: VITAL SIGNS: He has 99.7 temp, 91 pulse, 165/103 blood pressure a little high, 22 respiratory rate, 95% O2 sat. I will adjust his blood pressure medications. HEENT: Head is atraumatic and normocephalic, trach. HEART: Regular rate. LUNGS: Decreased breath sounds. ABDOMEN: Soft and obese. EXTREMITIES: No edema. MEDICATIONS: He is on Ativan, Dilaudid, Diprivan, DuoNebs, Ecotrin, Effient, Lopressor, Maxipime, midazolam, nicotine patch, Precedex, Protonix, Transderm-Scop, vancomycin, thiamine, Zestril. I increase the his Zestril to 10 mg. LABORATORY DATA: He has 14.3 white count, 12.7 hemoglobin, 38.6 hematocrit, and 336 platelets. He has 139 sodium, potassium 4.2, BUN 21, creatinine 0.8, GFR is greater than 60, sugar is 134. Calcium is 9.3, phosphorus is 4.2, magnesium 2.3, total bili is 0.6. AST is 73, ALT is 161, alk phos 69, total protein 7.8. ASSESSMENT AND PLAN: He has no numerous issues. We are going to try and get him to an long-term acute care, I understand. I will increase his blood pressure medication. Discussed with psych social worker who moved him to the telemetry if he have a bed. Ministerio Wan DO
--- NOTE | 2018-07-12 16:48 | PN ---
DATE: 07/12/2018 CARDIOLOGY FOLLOWUP SUBJECTIVE: The patient's hemodynamic conditions unchanged, remains on a ventilator. PHYSICAL EXAMINATION: VITAL SIGNS: Blood pressure 148/93, heart rate in the 90's. NECK: Negative JVD. LUNGS: Without rales. HEART: S1 and S2. EXTREMITIES: Without edema. LABORATORY DATA: Hemoglobin 12.7. Chemistries, BUN and creatinine unremarkable. IMPRESSION: 1. Respiratory failure. 2. Anoxic encephalopathy. 3. Status post multiple ventricular fibrillation arrest. 4. Status post cardiogenic shock. 5. Status post acute inferior wall myocardial infarction with right ventricular infarct. 6. Diabetes mellitus. PLAN: Given these findings, the patient remains hemodynamically stable waiting for transfer to an LTAC. Devonte Patel MD
[2018-07-12] MEDS ORDERED: HYDROmorphone 0.5 mg/0.5 ml ISec IVP STA (23:44)
--- NOTE | 2018-07-12 23:47 | CP.PCM.PCO ---
Addendum Addendum: 07/12/18 23:45 Dilaudid 0.5 mg IVP given one time for pain. Patient had been receiving prn Dilaudid 0.5mg IV Q4 which apparently fell off JUN and patient becoming tachycardic with HR 103s, suspect 2/2 pain/agitation. Patient has CIWA protocol prn ativan on board. Will continue to follow and monitor patient, nursing asked to please contact for any clinical changes. Kin Rodriguez, PGY-1
--- NOTE | 2018-07-13 00:15 | CP.PCM.PN ---
Subjective - Date & Time of Evaluation Date of Evaluation: 07/13/18 Time of Evaluation: 00:12 - Subjective Subjective: To be dictated hypoxia tachycardia diaphoretic Rx, CXR Lasix 80 mg IV x 1 Dilaudid.5 mg IV was given FSBS -124 mg %. Objective - Vital Signs/Intake and Output Vital Signs (last 24 hours): Temp Pulse Resp BP Pulse Ox 101.3 F H 91 H 27 H 131/83 99 07/12/18 18:28 07/12/18 18:28 07/12/18 18:00 07/12/18 18:00 07/12/18 18:28 Intake and Output: 07/12/18 07/13/18 18:59 06:59 Intake Total 1650 Output Total 3000 Balance -1350 - Medications Medications: Current Medications Albuterol/Ipratropium (Duoneb 3 Mg/0.5 Mg (3 Ml) Ud) 3 ml IH Q2H PRN PRN Reason: Shortness of Breath Last Admin: 07/08/18 16:57 Dose: 3 ml Albuterol/Ipratropium (Duoneb 3 Mg/0.5 Mg (3 Ml) Ud) 3 ml IH [id number] ALIN Last Admin: 07/12/18 19:50 Dose: 3 ml Aspirin (Ecotrin) 81 mg PO DAILY ALIN Last Admin: 07/12/18 10:53 Dose: 81 mg Furosemide (Lasix) 80 mg IVP STAT STA Stop: 07/12/18 23:53 Furosemide (Lasix) 80 mg IVP STAT STA Stop: 07/13/18 00:05 Propofol (Diprivan) 1,000 mg in 100 mls @ 6.314 mls/hr IV .[id number] PRN; Protocol PRN Reason: TITRATE PER MD ORDER Last Titration: 07/09/18 08:00 Dose: 0 mcg/kg/min, 0 mls/hr Midazolam 100 mg/100ml in NS (Midazolam 100 Mg/100ml In Ns) 100 mg in 100 mls @ 2 mls/hr IV .Q24H PRN; Protocol PRN Reason: Sedation Last Titration: 07/09/18 08:15 Dose: 0 mg/hr, 0 mls/hr Dexmedetomidine HCl (Precedex 400mcg/100ml) 400 mcg in 100 mls @ 5.33 mls/hr IV .[id number] PRN; Protocol PRN Reason: Sedation Last Admin: 07/10/18 18:14 Dose: 0.2 mcg/kg/hr, 5.33 mls/hr Cefepime HCl (Maxipime 1gm) 1 gm in 100 mls @ 100 mls/hr IVPB Q8 ALIN; Protocol Stop: 07/19/18 22:01 Last Admin: 07/12/18 22:20 Dose: 100 mls/hr Vancomycin HCl (Vancomycin 1gm) 1 gm in 250 mls @ 167 mls/hr IVPB Q12H ALIN; Protocol Stop: 07/20/18 18:46 Last Admin: 07/12/18 18:44 Dose: 167 mls/hr Lisinopril (Zestril) 10 mg PO DAILY ALIN Lorazepam (Ativan) 2 mg IVP Q2H PRN; Protocol PRN Reason: Anxiety Last Admin: 07/12/18 22:38 Dose: 2 mg Metoprolol Tartrate (Lopressor) 25 mg PO BID [facility] Last Admin: 07/12/18 17:27 Dose: 25 mg Nicotine (Nicoderm Cq) 1 patch TD DAILY [facility] Last Admin: 07/12/18 10:55 Dose: 1 patch Pantoprazole Sodium (Protonix Inj) 40 mg IVP Q12 [facility] Last Admin: 07/12/18 22:21 Dose: 40 mg Prasugrel (Effient) 10 mg PO DAILY [facility] Last Admin: 07/12/18 10:52 Dose: 10 mg Scopolamine (Transderm-Scop) 1 patch TD Q3D [facility] Last Admin: 07/11/18 22:29 Dose: 1 patch Thiamine HCl (Vitamin B1 Tab) 100 mg PO DAILY [facility] Last Admin: 07/12/18 10:51 Dose: 100 mg - Labs Labs: 07/12/18 05:30 07/12/18 05:30 PT 12.7 SECONDS (9.4-12.5) H 07/08/18 11:10 INR 1.12 07/08/18 11:10 APTT 27.6 Seconds (26.9-38.3) 07/08/18 11:10
[2018-07-13] MEDS: Albuterol-Ipratrop 3 mg / 0.5 (3 ml) UD IH SCH ×4 (01:50→20:30)
[2018-07-13] MEDS: Cefepime 1gm in NS 100ml 1 GM/100 ML BAG IVPB SCH (05:30)
[2018-07-13] MEDS: Vancomycin 1gm in NS 250ml 1 GM/250 ML BAG IVPB SCH ×2 (06:17→18:23)
[2018-07-13 06:19] LABS: ARTERIAL BLOOD GAS HCO3 23.8 mmol/L (21-28); ARTERIAL BLOOD GAS O2 CAPACITY 17.9 mL/dl (16-24); ARTERIAL BLOOD GAS O2 CONTENT 17.8 ML/dl (15-23); ARTERIAL BLOOD GAS O2 SAT 99.2 % (95-98); ARTERIAL BLOOD GAS PCO2 35 mm/Hg (35-45); ARTERIAL BLOOD GAS PH 7.44 (7.35-7.45); ARTERIAL BLOOD GAS TCO2 24.9 mmol.L (22-28)
[2018-07-13 06:38] LABS: BASO # 0.03 K/mm3 (0.0-2.0); BASO % 0.2 % (0.0-3.0); EOS # 0.2 (0.0-0.7); EOS % 0.9 % (1.5-5.0); HEMOGLOBIN 12.9 g/dL (14.0-18.0); LYMPH # 1.2 (1.2-3.4); LYMPH % 6.4 % (22.0-35.0); MEAN CELL VOLUME 94.5 fl (80.0-105.0); MEAN CORPUSCULAR HEMOGLOBIN 31.1 pg (25.0-35.0); MEAN CORPUSCULAR HGB CONC 32.9 g/dl (31.0-37.0); MEAN PLATELET VOLUME 9.8 fl (7.0-11.0); MONO # 0.7 (0.1-0.6); RBC 4.15 10^6/uL (3.5-6.1); RED CELL DISTRIBUTION WIDTH 14.4 % (11.5-14.5)
[2018-07-13 06:56] LABS: CALCIUM 9.1 mg/dL (8.4-10.5)
--- NOTE | 2018-07-13 09:22 | RAD ---
Date of service: 07/13/2018 HISTORY: ?chf?pna COMPARISON: No prior. TECHNIQUE: 1 view obtained. FINDINGS: LUNGS: Band-like opacity at base, likely atelectasis. No pulmonary infiltrate. PLEURA: No significant pleural effusion identified, no pneumothorax apparent. CARDIOVASCULAR: No aortic atherosclerotic calcification present. Normal cardiac size. No congestive change. Tracheostomy tube and nasogastric tube are unchanged. OSSEOUS STRUCTURES: No significant abnormalities. VISUALIZED UPPER ABDOMEN: Normal. OTHER FINDINGS: None. IMPRESSION: No active disease.
--- NOTE | 2018-07-13 12:02 | PN ---
DATE: 07/13/2018 SUBJECTIVE: He is doing different things now in bed. He is maria g, getting quite stiff, almost like a possibility of a seizure or a brain stem issue. I called in Dr. Tyson King to take another look at him. MEDICATIONS: He is on Ativan, Tylenol, Precedex, Dilaudid as needed, DuoNeb, Ecotrin, Effient, Lasix, Lopressor, Maxipime, Nicoderm, Diprivan, Protonix, Transderm-Scop, vancomycin, midazolam, thiamine and Zestril. PHYSICAL EXAMINATION: VITAL SIGNS: He has 102 temperature, 147/54 blood pressure, 99% on trach collar. HEENT: Head is atraumatic, normocephalic. He has got a trach, off the vent. HEART: Regular rate. LUNGS: Decreased breath sounds, but clear. ABDOMEN: Soft. EXTREMITIES: No edema, but he is definitely straining himself out. LABORATORY DATA: His white count went up to 18, hemoglobin 12.9, hematocrit 39.2, platelets are 384. Sodium 140, potassium 4.3, BUN 46, creatinine 1.5, GFR is 49, sugar is 92, calcium is 9.1, phosphorous 5.5, magnesium 2.5, total bili is 0.78. AST is 66, ALT is 141, alk phos 64, total protein 7.9. Urine, he has got moderate blood. ASSESSMENT AND PLAN: He is being seen by Infectious Disease, Cardiology, Sales Enablement Specialist. His chest x-ray showed no active disease. He needs neurological reevaluation. He does not look well. I believe he needs to be in LTAC. We will continue with the IV antibiotics and aggressive treatment on Reuben Fung. Ministerio Wan DO
[2018-07-13] MEDS ORDERED: Sodium Chloride 0.9% 1,000 ML IV SCH (12:30)
--- NOTE | 2018-07-13 13:18 | PN ---
DATE: 07/13/2018 SUBJECTIVE: The patient remains unresponsive with the tracheostomy. PHYSICAL EXAMINATION: VITAL SIGNS: Blood pressure is 92/57, heart rates in the 80s. NECK: Negative JVD. LUNGS: Without rales. HEART: S1 and S2. EXTREMITIES: Without edema. LABORATORY DATA: Laboratories are not available due to computer issues. IMPRESSION: 1. Status post cardiogenic shock. 2. Anoxic encephalopathy. 3. Status post inferior wall myocardial infarction complicated by right ventricle infarct. 4. History of ventricular fibrillation 5. Status post percutaneous transluminal coronary angioplasty and stent of an occluded right coronary artery. PLAN: Given these findings, the patient is hemodynamically stable, however still need long-term LTAC care. Devonte Patel MD
--- NOTE | 2018-07-13 13:44 | RAD ---
Date of service: 07/13/2018 HISTORY: increase in o2 requirements COMPARISON: Earlier same day TECHNIQUE: 1 view obtained. FINDINGS: LUNGS: Moderate vascular congestion. PLEURA: No significant pleural effusion identified, no pneumothorax apparent. CARDIOVASCULAR: No aortic atherosclerotic calcification present. Mild cardiomegaly OSSEOUS STRUCTURES: No significant abnormalities. VISUALIZED UPPER ABDOMEN: Normal. OTHER FINDINGS: None. IMPRESSION: Moderate vascular congestion
--- NOTE | 2018-07-13 14:07 | CP.CCUPN ---
<Mike Vale - Last Filed: 07/13/18 14:46> CCU Subjective - Physician Review Events Since Last Encounter (Free Text): 07/13/18 14:[address] in the ICU, no acute events overnight Subjective (Free Text): 07/07/18 11:21 pt seen and examined this morning, pt intubated at this time 07/11/18 08:06 pt seen and examined, pt unable to answer or follow commands, eyes are open but no tracking, trach collar 07/13/18 14:09 Pt seen and examined this morning. Pt writhing in bed with purposeless movements CCU Objective - Vital Signs / Intake & Output Intake and Output (Last 8hrs): Intake & Output 07/12/18 07/13/18 07/13/18 22:59 06:59 14:59 Intake Total 1650 1125 Output Total 3000 Balance -1350 1125 Intake: IV 350 350 Left Hand 350 350 Tube Feeding 900 375 Other 400 400 Output: Urine 3000 Urethral ([place]) 3000 Other: # Bowel Movements 3 - Physical Exam Head: Positive for: Atraumatic, Normocephalic Pupils: Positive for: Sluggish Extroacular Muscles: Positive for: EOMI Conjunctiva: Positive for: Normal Mouth: Positive for: Moist Mucous Membranes Neck: Positive for: Normal Range of Motion. Negative for: JVD, Lymphadenopathy Respiratory/Chest: Positive for: Clear to Auscultation. Negative for: Wheezes, Rhonchi Cardiovascular: Positive for: Regular Rate and Rhythm, Normal S1, S2. Negative for: Murmurs, Rub, Gallop Abdomen: Positive for: Normal Bowel Sounds. Negative for: Distention, Mass/Organomegaly Back: Positive for: Normal Inspection Upper Extremity: Positive for: Normal Inspection, NORMAL PULSES. Negative for: Cyanosis, Edema Lower Extremity: Positive for: Normal Inspection, NORMAL PULSES. Negative for: Edema, Cyanosis, Swelling, Erythema Neurological: Positive for: Other (GCS =4 [id number]) Skin: Positive for: Warm, Dry, Normal Color. Negative for: Rashes Psychiatric: Positive for: Other (trach collar) - Medications Active Medications: Active Medications Generic Name Dose Route Start Last Admin Trade Name Freq PRN Reason Stop Dose Admin Albuterol/Ipratropium 3 ml 07/01/18 17:28 07/08/18 16:57 Duoneb 3 Mg/0.5 Mg (3 Ml) Ud IH 3 ml Q2H PRN Administration Shortness of Breath Albuterol/Ipratropium 3 ml 07/04/18 14:00 07/13/18 13:31 Duoneb 3 Mg/0.5 Mg (3 Ml) Ud IH 3 ml [id number] ALIN Administration Aspirin 81 mg 07/02/18 10:30 07/13/18 09:45 Ecotrin PO 81 mg DAILY ALIN Administration Propofol 1,000 mg in 100 mls @ 6.314 mls/hr 07/04/18 18:28 07/09/18 08:00 Diprivan IV 0 mcg/kg/min .[id number] PRN 0 mls/hr TITRATE PER MD ORDER Titration Protocol 10 MCG/KG/MIN Midazolam 100 mg/100ml in NS 100 mg in 100 mls @ 2 mls/hr 07/06/18 07:50 07/09/18 08:15 Midazolam 100 Mg/100ml In Ns IV 0 mg/hr .Q24H PRN 0 mls/hr Sedation Titration Protocol 2 MG/HR Dexmedetomidine HCl 400 mcg in 100 mls @ 5.33 mls/hr 07/09/18 09:12 07/10/18 18:14 Precedex 400mcg/100ml IV 0.2 mcg/kg/hr .[id number] PRN 5.33 mls/hr Sedation Administration Protocol 0.2 MCG/KG/HR Cefepime HCl 1 gm in 100 mls @ 100 mls/hr 07/11/18 22:00 07/13/18 05:30 Maxipime 1gm IVPB 07/19/18 22:01 100 mls/hr Q8 ALIN Administration Protocol Vancomycin HCl 1 gm in 250 mls @ 167 mls/hr 07/11/18 18:45 07/13/18 06:17 Vancomycin 1gm IVPB 07/20/18 18:46 167 mls/hr Q12H ALIN Administration Protocol Acetaminophen 1,000 mg in 100 mls @ 400 mls/hr 07/13/18 04:35 07/13/18 04:30 Ofirmev IVPB 07/15/18 04:36 400 mls/hr Q4H PRN Administration Temperature Sodium Chloride 1,000 mls @ 250 mls/hr 07/13/18 12:30 04/01/19 12:29 Sodium Chloride 0.9% IV 07/13/18 16:29 250 mls/hr .Q4H ALIN Administration Lisinopril 10 mg 07/12/18 10:36 07/13/18 09:45 Zestril PO 10 mg DAILY ALIN Administration Lorazepam 2 mg 07/01/18 14:13 07/13/18 11:53 Ativan IVP 2 mg Q2H PRN Administration Anxiety Protocol Metoprolol Tartrate 25 mg 07/03/18 12:00 07/13/18 09:45 Lopressor PO 25 mg BID ALIN Administration Nicotine 1 patch 07/02/18 10:00 07/13/18 09:45 Nicoderm Cq TD 1 patch DAILY ALIN Administration Pantoprazole Sodium 40 mg 07/01/18 22:00 07/13/18 12:11 Protonix Inj IVP 40 mg Q12 ALIN Administration Prasugrel 10 mg 07/04/18 10:00 07/13/18 09:45 Effient PO 10 mg DAILY ALIN Administration Scopolamine 1 patch 07/11/18 21:30 07/11/18 22:29 Transderm-Scop TD 1 patch Q3D ALIN Administration Thiamine HCl 100 mg 07/11/18 12:30 07/13/18 09:45 Vitamin B1 Tab PO 100 mg DAILY ALIN Administration - Patient Studies Lab Studies: Microbiology Studies 07/12/18 05:30 Gram Stain - Final Trachasp Sputum Culture - Preliminary Gram Negative Garrick 07/11/18 19:00 Blood Culture - Preliminary Blood NO GROWTH AFTER 24 HOURS 07/11/18 18:45 Blood Culture - Preliminary Blood NO GROWTH AFTER 24 HOURS Lab Studies 07/13/18 07/13/18 07/13/18 Range/Units 07:17 06:49 06:10 WBC (4.5-11.0) 10^3/uL RBC (3.5-6.1) 10^6/uL Hgb (14.0-18.0) g/dL Hct (42.0-52.0) % MCV (80.0-105.0) fl MCH (25.0-35.0) pg MCHC (31.0-37.0) g/dl RDW (11.5-14.5) % Plt Count (120.0-450.0) 10^3/uL MPV (7.0-11.0) fl Neut % (Auto) (50.0-68.0) % Lymph % (Auto) (22.0-35.0) % [place] % (Auto) (1.0-6.0) % Eos % (Auto) (1.5-5.0) % Baso % (Auto) (0.0-3.0) % Lymph # (Auto) (1.2-3.4) [place] # (Auto) (0.1-0.6) Eos # (Auto) (0.0-0.7) Baso # (Auto) (0.0-2.0) K/mm3 Absolute Neuts (auto) (1.4-6.5) pCO2 35 (35-45) mm/Hg pO2 107.0 H (80-100) mm/Hg HCO3 23.8 (21-28) mmol/L ABG pH 7.44 (7.35-7.45) ABG Total CO2 24.9 (22-28) mmol.L ABG O2 Saturation 99.2 H (95-98) % ABG O2 Content 17.8 (15-23) ML/dl ABG Base Excess 0.0 (-2.0-3.0) mmol/L ABG Hemoglobin 13.0 (11.7-17.4) g/dL ABG Carboxyhemoglobin 1.8 H (0.5-1.5) % POC ABG HHb (Measured) 0.8 (0-5) % ABG Methemoglobin 0.8 (0.0-3.0) % ABG O2 Capacity 17.9 (16-24) mL/dl Hgb O2 Saturation 96.6 (95.0-98.0) % FiO2 60.0 % Sodium (132-148) mmol/L Potassium (3.6-5.0) mmol/L Chloride (98-107) mmol/L Carbon Dioxide (21-33) mmol/L Anion Gap (10-20) BUN (7-21) mg/dL Creatinine (0.8-1.5) mg/dl Est GFR ( Amer) Est GFR (Non-Af Amer) POC Glucose (mg/dL) 92 97 (65-110) mg/dL Random Glucose (70-110) mg/dL Calcium (8.4-10.5) mg/dL Phosphorus (2.5-4.5) mg/dL Magnesium (1.7-2.2) mg/dL Total Bilirubin (0.2-1.3) mg/dL AST (17-59) U/L ALT (7-56) U/L Alkaline Phosphatase (38-126) U/L Total Protein (5.8-8.3) g/dL Albumin (3.0-4.8) g/dL Globulin gm/dL Albumin/Globulin Ratio (1.1-1.8) Procalcitonin (0.19-0.49) NG/ML 07/13/18 07/13/18 07/13/18 Range/Units 05:20 05:20 00:12 WBC 18.0 H D (4.5-11.0) 10^3/uL RBC 4.15 (3.5-6.1) 10^6/uL Hgb 12.9 L (14.0-18.0) g/dL Hct 39.2 L (42.0-52.0) % MCV 94.5 (80.0-105.0) fl MCH 31.1 (25.0-35.0) pg MCHC 32.9 (31.0-37.0) g/dl RDW 14.4 (11.5-14.5) % Plt Count 384 (120.0-450.0) 10^3/uL MPV 9.8 (7.0-11.0) fl Neut % (Auto) 88.5 H (50.0-68.0) % Lymph % (Auto) 6.4 L (22.0-35.0) % [place] % (Auto) 4.0 (1.0-6.0) % Eos % (Auto) 0.9 L (1.5-5.0) % Baso % (Auto) 0.2 (0.0-3.0) % Lymph # (Auto) 1.2 (1.2-3.4) [place] # (Auto) 0.7 H (0.1-0.6) Eos # (Auto) 0.2 (0.0-0.7) Baso # (Auto) 0.03 (0.0-2.0) K/mm3 Absolute Neuts (auto) 15.91 H (1.4-6.5) pCO2 (35-45) mm/Hg pO2 (80-100) mm/Hg HCO3 (21-28) mmol/L ABG pH (7.35-7.45) ABG Total CO2 (22-28) mmol.L ABG O2 Saturation (95-98) % ABG O2 Content (15-23) ML/dl ABG Base Excess (-2.0-3.0) mmol/L ABG Hemoglobin (11.7-17.4) g/dL ABG Carboxyhemoglobin (0.5-1.5) % POC ABG HHb (Measured) (0-5) % ABG Methemoglobin (0.0-3.0) % ABG O2 Capacity (16-24) mL/dl Hgb O2 Saturation (95.0-98.0) % FiO2 % Sodium 140 (132-148) mmol/L Potassium 4.3 (3.6-5.0) mmol/L Chloride 106 (98-107) mmol/L Carbon Dioxide 26 (21-33) mmol/L Anion Gap 12 (10-20) BUN 46 H (7-21) mg/dL Creatinine 1.5 (0.8-1.5) mg/dl Est GFR ( Amer) 59 Est GFR (Non-Af Amer) 49 POC Glucose (mg/dL) 124 H (65-110) mg/dL Random Glucose 112 H (70-110) mg/dL Calcium 9.1 (8.4-10.5) mg/dL Phosphorus 5.5 H (2.5-4.5) mg/dL Magnesium 2.5 H (1.7-2.2) mg/dL Total Bilirubin 0.7 (0.2-1.3) mg/dL AST 66 H (17-59) U/L ALT 141 H (7-56) U/L Alkaline Phosphatase 64 (38-126) U/L Total Protein 7.9 (5.8-8.3) g/dL Albumin 4.0 (3.0-4.8) g/dL Globulin 3.9 gm/dL Albumin/Globulin Ratio 1.0 L (1.1-1.8) Procalcitonin (0.19-0.49) NG/ML 0307/12/18 07/12/18 Range/Units 20:31 16:50 15:23 WBC (4.5-11.0) 10^3/uL RBC (3.5-6.1) 10^6/uL Hgb (14.0-18.0) g/dL Hct (42.0-52.0) % MCV (80.0-105.0) fl MCH (25.0-35.0) pg MCHC (31.0-37.0) g/dl RDW (11.5-14.5) % Plt Count (120.0-450.0) 10^3/uL MPV (7.0-11.0) fl Neut % (Auto) (50.0-68.0) % Lymph % (Auto) (22.0-35.0) % [place] % (Auto) (1.0-6.0) % Eos % (Auto) (1.5-5.0) % Baso % (Auto) (0.0-3.0) % Lymph # (Auto) (1.2-3.4) [place] # (Auto) (0.1-0.6) Eos # (Auto) (0.0-0.7) Baso # (Auto) (0.0-2.0) K/mm3 Absolute Neuts (auto) (1.4-6.5) pCO2 (35-45) mm/Hg pO2 (80-100) mm/Hg HCO3 (21-28) mmol/L ABG pH (7.35-7.45) ABG Total CO2 (22-28) mmol.L ABG O2 Saturation (95-98) % ABG O2 Content (15-23) ML/dl ABG Base Excess (-2.0-3.0) mmol/L ABG Hemoglobin (11.7-17.4) g/dL ABG Carboxyhemoglobin (0.5-1.5) % POC ABG HHb (Measured) (0-5) % ABG Methemoglobin (0.0-3.0) % ABG O2 Capacity (16-24) mL/dl Hgb O2 Saturation (95.0-98.0) % FiO2 % Sodium (132-148) mmol/L Potassium (3.6-5.0) mmol/L Chloride (98-107) mmol/L Carbon Dioxide (21-33) mmol/L Anion Gap (10-20) BUN (7-21) mg/dL Creatinine (0.8-1.5) mg/dl Est GFR ( Amer) Est GFR (Non-Af Amer) POC Glucose (mg/dL) 135 H 169 H 137 H (65-110) mg/dL Random Glucose (70-110) mg/dL Calcium (8.4-10.5) mg/dL Phosphorus (2.5-4.5) mg/dL Magnesium (1.7-2.2) mg/dL Total Bilirubin (0.2-1.3) mg/dL AST (17-59) U/L ALT (7-56) U/L Alkaline Phosphatase (38-126) U/L Total Protein (5.8-8.3) g/dL Albumin (3.0-4.8) g/dL Globulin gm/dL Albumin/Globulin Ratio (1.1-1.8) Procalcitonin (0.19-0.49) NG/ML 07/11/18 Range/Units 18:45 WBC (4.5-11.0) 10^3/uL RBC (3.5-6.1) 10^6/uL Hgb (14.0-18.0) g/dL Hct (42.0-52.0) % MCV (80.0-105.0) fl MCH (25.0-35.0) pg MCHC (31.0-37.0) g/dl RDW (11.5-14.5) % Plt Count (120.0-450.0) 10^3/uL MPV (7.0-11.0) fl Neut % (Auto) (50.0-68.0) % Lymph % (Auto) (22.0-35.0) % [place] % (Auto) (1.0-6.0) % Eos % (Auto) (1.5-5.0) % Baso % (Auto) (0.0-3.0) % Lymph # (Auto) (1.2-3.4) [place] # (Auto) (0.1-0.6) Eos # (Auto) (0.0-0.7) Baso # (Auto) (0.0-2.0) K/mm3 Absolute Neuts (auto) (1.4-6.5) pCO2 (35-45) mm/Hg pO2 (80-100) mm/Hg HCO3 (21-28) mmol/L ABG pH (7.35-7.45) ABG Total CO2 (22-28) mmol.L ABG O2 Saturation (95-98) % ABG O2 Content (15-23) ML/dl ABG Base Excess (-2.0-3.0) mmol/L ABG Hemoglobin (11.7-17.4) g/dL ABG Carboxyhemoglobin (0.5-1.5) % POC ABG HHb (Measured) (0-5) % ABG Methemoglobin (0.0-3.0) % ABG O2 Capacity (16-24) mL/dl Hgb O2 Saturation (95.0-98.0) % FiO2 % Sodium (132-148) mmol/L Potassium (3.6-5.0) mmol/L Chloride (98-107) mmol/L Carbon Dioxide (21-33) mmol/L Anion Gap (10-20) BUN (7-21) mg/dL Creatinine (0.8-1.5) mg/dl Est GFR ( Amer) Est GFR (Non-Af Amer) POC Glucose (mg/dL) (65-110) mg/dL Random Glucose (70-110) mg/dL Calcium (8.4-10.5) mg/dL Phosphorus (2.5-4.5) mg/dL Magnesium (1.7-2.2) mg/dL Total Bilirubin (0.2-1.3) mg/dL AST (17-59) U/L ALT (7-56) U/L Alkaline Phosphatase (38-126) U/L Total Protein (5.8-8.3) g/dL Albumin (3.0-4.8) g/dL Globulin gm/dL Albumin/Globulin Ratio (1.1-1.8) Procalcitonin < 0.05 L (0.19-0.49) NG/ML Laboratory Results - last 24 hr 07/11/18 07/12/18 07/12/18 18:45 15:23 16:50 WBC RBC Hgb Hct MCV MCH MCHC RDW Plt Count MPV Neut % (Auto) Lymph % (Auto) [place] % (Auto) Eos % (Auto) Baso % (Auto) Lymph # (Auto) [place] # (Auto) Eos # (Auto) Baso # (Auto) Absolute Neuts (auto) pCO2 pO2 HCO3 ABG pH ABG Total CO2 ABG O2 Saturation ABG O2 Content ABG Base Excess ABG Hemoglobin ABG Carboxyhemoglobin POC ABG HHb (Measured) ABG Methemoglobin ABG O2 Capacity Hgb O2 Saturation FiO2 Sodium Potassium Chloride Carbon Dioxide Anion Gap BUN Creatinine Est GFR ( Amer) Est GFR (Non-Af Amer) POC Glucose (mg/dL) 137 H 169 H Random Glucose Calcium Phosphorus Magnesium Total Bilirubin AST ALT Alkaline Phosphatase Total Protein Albumin Globulin Albumin/Globulin Ratio Procalcitonin < 0.05 L 07/12/18 07/13/18 07/13/18 20:31 00:12 05:20 WBC 18.0 H D RBC 4.15 Hgb 12.9 L Hct 39.2 L MCV 94.5 MCH 31.1 MCHC 32.9 RDW 14.4 Plt Count 384 MPV 9.8 Neut % (Auto) 88.5 H Lymph % (Auto) 6.4 L [place] % (Auto) 4.0 Eos % (Auto) 0.9 L Baso % (Auto) 0.2 Lymph # (Auto) 1.2 [place] # (Auto) 0.7 H Eos # (Auto) 0.2 Baso # (Auto) 0.03 Absolute Neuts (auto) 15.91 H pCO2 pO2 HCO3 ABG pH ABG Total CO2 ABG O2 Saturation ABG O2 Content ABG Base Excess ABG Hemoglobin ABG Carboxyhemoglobin POC ABG HHb (Measured) ABG Methemoglobin ABG O2 Capacity Hgb O2 Saturation FiO2 Sodium Potassium Chloride Carbon Dioxide Anion Gap BUN Creatinine Est GFR ( Amer) Est GFR (Non-Af Amer) POC Glucose (mg/dL) 135 H 124 H Random Glucose Calcium Phosphorus Magnesium Total Bilirubin AST ALT Alkaline Phosphatase Total Protein Albumin Globulin Albumin/Globulin Ratio Procalcitonin 07/13/18 07/13/18 07/13/18 05:20 06:10 06:49 WBC RBC Hgb Hct MCV MCH MCHC RDW Plt Count MPV Neut % (Auto) Lymph % (Auto) [place] % (Auto) Eos % (Auto) Baso % (Auto) Lymph # (Auto) [place] # (Auto) Eos # (Auto) Baso # (Auto) Absolute Neuts (auto) pCO2 35 pO2 107.0 H HCO3 23.8 ABG pH 7.44 ABG Total CO2 24.9 ABG O2 Saturation 99.2 H ABG O2 Content 17.8 ABG Base Excess 0.0 ABG Hemoglobin 13.0 ABG Carboxyhemoglobin 1.8 H POC ABG HHb (Measured) 0.8 ABG Methemoglobin 0.8 ABG O2 Capacity 17.9 Hgb O2 Saturation 96.6 FiO2 60.0 Sodium 140 Potassium 4.3 Chloride 106 Carbon Dioxide 26 Anion Gap 12 BUN 46 H Creatinine 1.5 Est GFR ( Amer) 59 Est GFR (Non-Af Amer) 49 POC Glucose (mg/dL) 97 Random Glucose 112 H Calcium 9.1 Phosphorus 5.5 H Magnesium 2.5 H Total Bilirubin 0.7 AST 66 H ALT 141 H Alkaline Phosphatase 64 Total Protein 7.9 Albumin 4.0 Globulin 3.9 Albumin/Globulin Ratio 1.0 L Procalcitonin 07/13/18 07:17 WBC RBC Hgb Hct MCV MCH MCHC RDW Plt Count MPV Neut % (Auto) Lymph % (Auto) [place] % (Auto) Eos % (Auto) Baso % (Auto) Lymph # (Auto) [place] # (Auto) Eos # (Auto) Baso # (Auto) Absolute Neuts (auto) pCO2 pO2 HCO3 ABG pH ABG Total CO2 ABG O2 Saturation ABG O2 Content ABG Base Excess ABG Hemoglobin ABG Carboxyhemoglobin POC ABG HHb (Measured) ABG Methemoglobin ABG O2 Capacity Hgb O2 Saturation FiO2 Sodium Potassium Chloride Carbon Dioxide Anion Gap BUN Creatinine Est GFR ( Amer) Est GFR (Non-Af Amer) POC Glucose (mg/dL) 92 Random Glucose Calcium Phosphorus Magnesium Total Bilirubin AST ALT Alkaline Phosphatase Total Protein Albumin Globulin Albumin/Globulin Ratio Procalcitonin Radiology Impressions: Radiology Impressions Chest X-Ray 07/12/18 23:52 IMPRESSION: No active disease. Chest X-Ray 07/13/18 12:15 IMPRESSION: Moderate vascular congestion Fingerstick Blood Sugar Results: 106 Assessment/Plan - Assessment and Plan (Free Text) Assessment: Pt is a 53 yo male admitted to ICU s/p VFib cardiac arrest with subsequent PCI with RCA stent placed. He sustained anoxic cerebral injury with diffuse cerebral edema requiring intubation, pt is now on trach ventilation. Plan: Neuro - anoxic brain injury, VFib cardiac arrest with subsequent multiple defibrillation, PCI and RCA ANALISA placement - CT head 07/03/18: no ICH, diffuse cerebral edema, findings consistent with anoxic brain injury - Video EEG 07/03/18: no seizure activity. Severe slowing/attenuation - continue ativan prn - thiamine for neurocognitive activation as per neuro - pt started on precedex - neuro consulted, Dr King Cardio - cardiac arrest due to VFib s/p PCI with RCA ANALISA - asa, lisinopril, lopressor, effient - statins held due to elevated LFT - maintain MAP>65 - Echo 07/02/18: LVEF 45% LVH with hypokinesis, mild pulm HTN - cardio consulted, Dr Jorge Mcfarlane - COPD, chronic [facility] - ventilator dependent respiratory failure - s/p tracheostomy (07/08) - maintain O2>92% GI - history of alcoholism, obese - transaminitis likely due to shock liver in the setting of cardiac arrest - AST/ALT 66/141 - hepatitis A/B/C NEGATIVE - U/S abdomen: fibro/fatty liver infiltration - NG enteral feeding - GI ppx Protonix q12 - GI consulted, continue NG feeding for one month then re-evaluate for possible PEG placement since this's a high risk procedure and not an emergency. Effient would need to be held up to 7 days before PEG could be placed. 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 transferring the patient to LTACH facility in [place] Pt seen, examined, assessment and plan discussed with Dr Satinder Vale PGY1 - Date & Time Date: 07/13/18 Time: 07:50 <Kim,Bilal - Last Filed: 07/13/18 18:07> CCU Objective - Vital Signs / Intake & Output Vital Signs (Last 4 hours): Vital Signs Temp Pulse Resp BP Pulse Ox 07/13/18 17:20 75/44 L 07/13/18 17:19 101.1 F H 61 95 07/13/18 17:18 101.1 F H 95 07/13/18 17:17 101.1 F H 65 95 07/13/18 17:16 75/45 L 07/13/18 17:15 101.1 F H 65 76/45 L 94 L 07/13/18 17:14 101.1 F H 65 94 L 07/13/18 17:13 101.1 F H 65 94 L 07/13/18 17:12 101.1 F H 94 L 07/13/18 17:11 72/44 L 07/13/18 17:10 101.1 F H 87 95 07/13/18 17:09 101.1 F H 65 81 H 83/47 L 94 L 07/13/18 17:08 101.1 F H 65 95 07/13/18 17:07 82/46 L 07/13/18 17:06 101.1 F H 66 99 H 95 07/13/18 17:04 101.1 F H 94 L 07/13/18 17:03 101.1 F H 77 95 07/13/18 17:02 101.1 F H 78 95 07/13/18 17:01 101.1 F H 66 95 07/13/18 17:00 101.1 F H 66 172 H 78/47 L 95 07/13/18 16:59 101.1 F H 66 94 L 07/13/18 16:56 101.1 F H 66 94 L 07/13/18 16:51 101.1 F H 95 07/13/18 16:50 101.1 F H 68 95 07/13/18 16:49 101.1 F H 60 95 07/13/18 16:48 101.1 F H 68 94 L 07/13/18 16:20 100.8 F H 74 96 07/13/18 16:16 100.8 F H 82 96 07/13/18 16:13 100.8 F H 89 98 07/13/18 16:08 100.8 F H 87 96 07/13/18 16:06 100.8 F H 90 98 07/13/18 16:03 100.6 F H 91 H 98 07/13/18 16:02 100.6 F H 88 84 H 135/75 96 07/13/18 16:00 100.6 F H 86 28 H 99 07/13/18 15:55 100.6 F H 86 98 07/13/18 15:45 100.4 F H 89 98 07/13/18 15:26 100.4 F H 89 98 07/13/18 15:19 100.4 F H 90 98 07/13/18 15:14 100.6 F H 88 96 07/13/18 15:13 100.6 F H 84 97 07/13/18 15:11 100.6 F H 90 97 07/13/18 15:02 100.6 F H 88 30 H 128/43 L 07/13/18 14:58 100.0 F H 76 07/13/18 14:23 97.9 F 86 Intake and Output (Last 8hrs): Intake & Output 07/13/18 07/13/18 07/13/18 06:59 14:59 22:59 Intake Total 1125 19 Balance 1125 19 Intake: IV 350 19 Left Hand 350 Tube Feeding 375 Other 400 - Medications Active Medications: Active Medications Generic Name Dose Route Start Last Admin Trade Name Freq PRN Reason Stop Dose Admin Albuterol/Ipratropium 3 ml 07/01/18 17:28 07/08/18 16:57 Duoneb 3 Mg/0.5 Mg (3 Ml) Ud IH 3 ml Q2H PRN Administration Shortness of Breath Albuterol/Ipratropium 3 ml 07/04/18 14:00 07/13/18 13:31 Duoneb 3 Mg/0.5 Mg (3 Ml) Ud IH 3 ml [id number] ALIN Administration Aspirin 81 mg 07/02/18 10:30 07/13/18 09:45 Ecotrin PO 81 mg DAILY ALIN Administration Propofol 1,000 mg in 100 mls @ 6.314 mls/hr 07/04/18 18:28 07/09/18 08:00 Diprivan IV 0 mcg/kg/min .[id number] PRN 0 mls/hr TITRATE PER MD ORDER Titration Protocol 10 MCG/KG/MIN Midazolam 100 mg/100ml in NS 100 mg in 100 mls @ 2 mls/hr 07/06/18 07:50 07/09/18 08:15 Midazolam 100 Mg/100ml In Ns IV 0 mg/hr .Q24H PRN 0 mls/hr Sedation Titration Protocol 2 MG/HR Vancomycin HCl 1 gm in 250 mls @ 167 mls/hr 07/11/18 18:45 07/13/18 06:17 Vancomycin 1gm IVPB 07/20/18 18:46 167 mls/hr Q12H ALIN Administration Protocol Acetaminophen 1,000 mg in 100 mls @ 400 mls/hr 07/13/18 04:35 07/13/18 17:25 Ofirmev IVPB 07/15/18 04:36 400 mls/hr Q4H PRN Administration Temperature Dexmedetomidine HCl 400 mcg in 100 mls @ 5.33 mls/hr 07/13/18 14:32 07/13/18 16:14 Precedex 400mcg/100ml IV 1.5 mcg/kg/hr .[id number] PRN 39.973 mls/hr Agitation Titration Protocol 0.2 MCG/KG/HR Meropenem 1 gm in 50 mls @ 100 mls/hr 07/13/18 22:00 Merrem Iv 1 Gm Premix IVPB 07/20/18 22:01 Q12 ALIN Protocol Sodium Chloride 1,000 mls @ 999 mls/hr 07/13/18 17:50 Sodium Chloride 0.9% IV 07/13/18 18:50 .Q1H1M STA NOREPINEPHRINE BIT/0.9 % NACL 4 mg in 250 mls @ 15 mls/hr 07/13/18 17:50 Levophed 4 Mg/ 250 Ml Ns Premixed IV .[id number] PRN TITRATE PER MD ORDER Protocol 4 MCG/MIN Lisinopril 10 mg 07/12/18 10:36 07/13/18 09:45 Zestril PO 10 mg DAILY ALIN Administration Lorazepam 2 mg 07/01/18 14:13 07/13/18 16:12 Ativan IVP 2 mg Q2H PRN Administration Anxiety Protocol Metoprolol Tartrate 25 mg 07/03/18 12:00 07/13/18 09:45 Lopressor PO 25 mg BID ALIN Administration Nicotine 1 patch 07/02/18 10:00 04/01/19 09:45 Nicoderm Cq TD 1 patch DAILY ALIN Administration Pantoprazole Sodium 40 mg 07/14/18 10:00 Protonix Inj IVP DAILY ALIN Prasugrel 10 mg 07/04/18 10:00 07/13/18 09:45 Effient PO 10 mg DAILY ALIN Administration Scopolamine 1 patch 07/11/18 21:30 07/11/18 22:29 Transderm-Scop TD 1 patch Q3D ALIN Administration Thiamine HCl 100 mg 07/11/18 12:30 07/13/18 09:45 Vitamin B1 Tab PO 100 mg DAILY ALIN Administration - Patient Studies Lab Studies: Microbiology Studies 07/12/18 05:30 MRSA Culture (Admit) - Final Naris MRSA NOT DETECTED 07/12/18 05:30 Gram Stain - Final Trachasp Sputum Culture - Preliminary Gram Negative Garrick 07/11/18 19:00 Blood Culture - Preliminary Blood NO GROWTH AFTER 24 HOURS 07/11/18 18:45 Blood Culture - Preliminary Blood NO GROWTH AFTER 24 HOURS Lab Studies 07/13/18 07/13/18 07/13/18 Range/Units 11:06 07:17 06:49 WBC (4.5-11.0) 10^3/uL RBC (3.5-6.1) 10^6/uL Hgb (14.0-18.0) g/dL Hct (42.0-52.0) % MCV (80.0-105.0) fl MCH (25.0-35.0) pg MCHC (31.0-37.0) g/dl RDW (11.5-14.5) % Plt Count (120.0-450.0) 10^3/uL MPV (7.0-11.0) fl Neut % (Auto) (50.0-68.0) % Lymph % (Auto) (22.0-35.0) % [place] % (Auto) (1.0-6.0) % Eos % (Auto) (1.5-5.0) % Baso % (Auto) (0.0-3.0) % Lymph # (Auto) (1.2-3.4) [place] # (Auto) (0.1-0.6) Eos # (Auto) (0.0-0.7) Baso # (Auto) (0.0-2.0) K/mm3 Absolute Neuts (auto) (1.4-6.5) pCO2 (35-45) mm/Hg pO2 (80-100) mm/Hg HCO3 (21-28) mmol/L ABG pH (7.35-7.45) ABG Total CO2 (22-28) mmol.L ABG O2 Saturation (95-98) % ABG O2 Content (15-23) ML/dl ABG Base Excess (-2.0-3.0) mmol/L ABG Hemoglobin (11.7-17.4) g/dL ABG Carboxyhemoglobin (0.5-1.5) % POC ABG HHb (Measured) (0-5) % ABG Methemoglobin (0.0-3.0) % ABG O2 Capacity (16-24) mL/dl Hgb O2 Saturation (95.0-98.0) % FiO2 % Sodium (132-148) mmol/L Potassium (3.6-5.0) mmol/L Chloride (98-107) mmol/L Carbon Dioxide (21-33) mmol/L Anion Gap (10-20) BUN (7-21) mg/dL Creatinine (0.8-1.5) mg/dl Est GFR ( Amer) Est GFR (Non-Af Amer) POC Glucose (mg/dL) 102 92 97 (65-110) mg/dL Random Glucose (70-110) mg/dL Calcium (8.4-10.5) mg/dL Phosphorus (2.5-4.5) mg/dL Magnesium (1.7-2.2) mg/dL Total Bilirubin (0.2-1.3) mg/dL AST (17-59) U/L ALT (7-56) U/L Alkaline Phosphatase (38-126) U/L Total Protein (5.8-8.3) g/dL Albumin (3.0-4.8) g/dL Globulin gm/dL Albumin/Globulin Ratio (1.1-1.8) 07/13/18 07/13/18 07/13/18 Range/Units 06:10 05:20 05:20 WBC 18.0 H D (4.5-11.0) 10^3/uL RBC 4.15 (3.5-6.1) 10^6/uL Hgb 12.9 L (14.0-18.0) g/dL Hct 39.2 L (42.0-52.0) % MCV 94.5 (80.0-105.0) fl MCH 31.1 (25.0-35.0) pg MCHC 32.9 (31.0-37.0) g/dl RDW 14.4 (11.5-14.5) % Plt Count 384 (120.0-450.0) 10^3/uL MPV 9.8 (7.0-11.0) fl Neut % (Auto) 88.5 H (50.0-68.0) % Lymph % (Auto) 6.4 L (22.0-35.0) % [place] % (Auto) 4.0 (1.0-6.0) % Eos % (Auto) 0.9 L (1.5-5.0) % Baso % (Auto) 0.2 (0.0-3.0) % Lymph # (Auto) 1.2 (1.2-3.4) [place] # (Auto) 0.7 H (0.1-0.6) Eos # (Auto) 0.2 (0.0-0.7) Baso # (Auto) 0.03 (0.0-2.0) K/mm3 Absolute Neuts (auto) 15.91 H (1.4-6.5) pCO2 35 (35-45) mm/Hg pO2 107.0 H (80-100) mm/Hg HCO3 23.8 (21-28) mmol/L ABG pH 7.44 (7.35-7.45) ABG Total CO2 24.9 (22-28) mmol.L ABG O2 Saturation 99.2 H (95-98) % ABG O2 Content 17.8 (15-23) ML/dl ABG Base Excess 0.0 (-2.0-3.0) mmol/L ABG Hemoglobin 13.0 (11.7-17.4) g/dL ABG Carboxyhemoglobin 1.8 H (0.5-1.5) % POC ABG HHb (Measured) 0.8 (0-5) % ABG Methemoglobin 0.8 (0.0-3.0) % ABG O2 Capacity 17.9 (16-24) mL/dl Hgb O2 Saturation 96.6 (95.0-98.0) % FiO2 60.0 % Sodium 140 (132-148) mmol/L Potassium 4.3 (3.6-5.0) mmol/L Chloride 106 (98-107) mmol/L Carbon Dioxide 26 (21-33) mmol/L Anion Gap 12 (10-20) BUN 46 H (7-21) mg/dL Creatinine 1.5 (0.8-1.5) mg/dl Est GFR ( Amer) 59 Est GFR (Non-Af Amer) 49 POC Glucose (mg/dL) (65-110) mg/dL Random Glucose 112 H (70-110) mg/dL Calcium 9.1 (8.4-10.5) mg/dL Phosphorus 5.5 H (2.5-4.5) mg/dL Magnesium 2.5 H (1.7-2.2) mg/dL Total Bilirubin 0.7 (0.2-1.3) mg/dL AST 66 H (17-59) U/L ALT 141 H (7-56) U/L Alkaline Phosphatase 64 (38-126) U/L Total Protein 7.9 (5.8-8.3) g/dL Albumin 4.0 (3.0-4.8) g/dL Globulin 3.9 gm/dL Albumin/Globulin Ratio 1.0 L (1.1-1.8) 07/13/18 07/12/18 07/12/18 Range/Units 00:12 20:31 16:50 WBC (4.5-11.0) 10^3/uL RBC (3.5-6.1) 10^6/uL Hgb (14.0-18.0) g/dL Hct (42.0-52.0) % MCV (80.0-105.0) fl MCH (25.0-35.0) pg MCHC (31.0-37.0) g/dl RDW (11.5-14.5) % Plt Count (120.0-450.0) 10^3/uL MPV (7.0-11.0) fl Neut % (Auto) (50.0-68.0) % Lymph % (Auto) (22.0-35.0) % [place] % (Auto) (1.0-6.0) % Eos % (Auto) (1.5-5.0) % Baso % (Auto) (0.0-3.0) % Lymph # (Auto) (1.2-3.4) [place] # (Auto) (0.1-0.6) Eos # (Auto) (0.0-0.7) Baso # (Auto) (0.0-2.0) K/mm3 Absolute Neuts (auto) (1.4-6.5) pCO2 (35-45) mm/Hg pO2 (80-100) mm/Hg HCO3 (21-28) mmol/L ABG pH (7.35-7.45) ABG Total CO2 (22-28) mmol.L ABG O2 Saturation (95-98) % ABG O2 Content (15-23) ML/dl ABG Base Excess (-2.0-3.0) mmol/L ABG Hemoglobin (11.7-17.4) g/dL ABG Carboxyhemoglobin (0.5-1.5) % POC ABG HHb (Measured) (0-5) % ABG Methemoglobin (0.0-3.0) % ABG O2 Capacity (16-24) mL/dl Hgb O2 Saturation (95.0-98.0) % FiO2 % Sodium (132-148) mmol/L Potassium (3.6-5.0) mmol/L Chloride (98-107) mmol/L Carbon Dioxide (21-33) mmol/L Anion Gap (10-20) BUN (7-21) mg/dL Creatinine (0.8-1.5) mg/dl Est GFR ( Amer) Est GFR (Non-Af Amer) POC Glucose (mg/dL) 124 H 135 H 169 H (65-110) mg/dL Random Glucose (70-110) mg/dL Calcium (8.4-10.5) mg/dL Phosphorus (2.5-4.5) mg/dL Magnesium (1.7-2.2) mg/dL Total Bilirubin (0.2-1.3) mg/dL AST (17-59) U/L ALT (7-56) U/L Alkaline Phosphatase (38-126) U/L Total Protein (5.8-8.3) g/dL Albumin (3.0-4.8) g/dL Globulin gm/dL Albumin/Globulin Ratio (1.1-1.8) Laboratory Results - last 24 hr 07/12/18 07/12/18 07/13/18 16:50 20:31 00:12 WBC RBC Hgb Hct MCV MCH MCHC RDW Plt Count MPV Neut % (Auto) Lymph % (Auto) [place] % (Auto) Eos % (Auto) Baso % (Auto) Lymph # (Auto) [place] # (Auto) Eos # (Auto) Baso # (Auto) Absolute Neuts (auto) pCO2 pO2 HCO3 ABG pH ABG Total CO2 ABG O2 Saturation ABG O2 Content ABG Base Excess ABG Hemoglobin ABG Carboxyhemoglobin POC ABG HHb (Measured) ABG Methemoglobin ABG O2 Capacity Hgb O2 Saturation FiO2 Sodium Potassium Chloride Carbon Dioxide Anion Gap BUN Creatinine Est GFR ( Amer) Est GFR (Non-Af Amer) POC Glucose (mg/dL) 169 H 135 H 124 H Random Glucose Calcium Phosphorus Magnesium Total Bilirubin AST ALT Alkaline Phosphatase Total Protein Albumin Globulin Albumin/Globulin Ratio 07/13/18 07/13/18 07/13/18 05:20 05:20 06:10 WBC 18.0 H D RBC 4.15 Hgb 12.9 L Hct 39.2 L MCV 94.5 MCH 31.1 MCHC 32.9 RDW 14.4 Plt Count 384 MPV 9.8 Neut % (Auto) 88.5 H Lymph % (Auto) 6.4 L [place] % (Auto) 4.0 Eos % (Auto) 0.9 L Baso % (Auto) 0.2 Lymph # (Auto) 1.2 [place] # (Auto) 0.7 H Eos # (Auto) 0.2 Baso # (Auto) 0.03 Absolute Neuts (auto) 15.91 H pCO2 35 pO2 107.0 H HCO3 23.8 ABG pH 7.44 ABG Total CO2 24.9 ABG O2 Saturation 99.2 H ABG O2 Content 17.8 ABG Base Excess 0.0 ABG Hemoglobin 13.0 ABG Carboxyhemoglobin 1.8 H POC ABG HHb (Measured) 0.8 ABG Methemoglobin 0.8 ABG O2 Capacity 17.9 Hgb O2 Saturation 96.6 FiO2 60.0 Sodium 140 Potassium 4.3 Chloride 106 Carbon Dioxide 26 Anion Gap 12 BUN 46 H Creatinine 1.5 Est GFR ( Amer) 59 Est GFR (Non-Af Amer) 49 POC Glucose (mg/dL) Random Glucose 112 H Calcium 9.1 Phosphorus 5.5 H Magnesium 2.5 H Total Bilirubin 0.7 AST 66 H ALT 141 H Alkaline Phosphatase 64 Total Protein 7.9 Albumin 4.0 Globulin 3.9 Albumin/Globulin Ratio 1.0 L 07/13/18 07/13/18 07/13/18 06:49 07:17 11:06 WBC RBC Hgb Hct MCV MCH MCHC RDW Plt Count MPV Neut % (Auto) Lymph % (Auto) [place] % (Auto) Eos % (Auto) Baso % (Auto) Lymph # (Auto) [place] # (Auto) Eos # (Auto) Baso # (Auto) Absolute Neuts (auto) pCO2 pO2 HCO3 ABG pH ABG Total CO2 ABG O2 Saturation ABG O2 Content ABG Base Excess ABG Hemoglobin ABG Carboxyhemoglobin POC ABG HHb (Measured) ABG Methemoglobin ABG O2 Capacity Hgb O2 Saturation FiO2 Sodium Potassium Chloride Carbon Dioxide Anion Gap BUN Creatinine Est GFR ( Amer) Est GFR (Non-Af Amer) POC Glucose (mg/dL) 97 92 102 Random Glucose Calcium Phosphorus Magnesium Total Bilirubin AST ALT Alkaline Phosphatase Total Protein Albumin Globulin Albumin/Globulin Ratio Radiology Impressions: Radiology Impressions Chest X-Ray 07/12/18 23:52 IMPRESSION: No active disease. Chest X-Ray 07/13/18 12:15 IMPRESSION: Moderate vascular congestion Addendum Addendum: 07/13/18 18:05 Patient seen and examined on rounds with resident, agree with note with following additions/exceptions: 53M with obesity, polysubstance abuse, EtOH abuse, HTN, smoker s/p Vfib arrest s/p PCI with RCA stent Syncope HTN VFIB arrest s/p ROSC s/p PCI CAD anoxic brain injury Resp failure Patient hypoixic overnight placed back on vent PS given lasix having fevers new sunni likely has significant degree of anoxic injury s/p trach 07/09 Recommend: cont PS via trach REPEAT cxr TODAY likely needs fluids as he has been net neg last few days and cr slowly rising duonebs PRN, On ASA, Statin, Prasugrel for stent f/u Neuro rec and cardio rec PPI GI ppx hepSQ DVT ppx Dispo: will likely need PEG soon and SERGIO Kim MICU Attending
--- NOTE | 2018-07-13 14:55 | CP.PCM.PN ---
<Nic Bae - Last Filed: 07/13/18 14:50> Subjective - Date & Time of Evaluation Date of Evaluation: 07/13/18 Time of Evaluation: 09:40 - Subjective Subjective: Nic Bae D.O. PGY-3, Internal Medicine Resident, Infectious Disease Progress Note 53-year-old male with a past medical history alcohol abuse, obesity, hypertension, and tobacco abuse who presented [place] [facility] [place] of [place]opal episode. Patient was found to have an elevated troponin but refused a cardiac catheterization. Patient suffered cardiac arrest while in ultrasound, V. fib, and was subsequently taken to the [facility] with stenting of the RCA and placement of intra-aortic balloon pump. Infectious disease was consulted for sepsis. Patient was seen and examined at bedside. Moving around but not opening eyes. Nonverbal. Objective - Vital Signs/Intake and Output Vital Signs (last 24 hours): Temp Pulse Resp BP Pulse Ox 100 F H 92 H 27 H 147/54 L 99 07/13/18 01:42 07/13/18 06:00 07/12/18 18:00 07/13/18 00:40 07/12/18 18:28 Intake and Output: 07/13/18 07/13/18 06:59 18:59 Intake Total 1125 Balance 1125 - Medications Medications: Current Medications Albuterol/Ipratropium (Duoneb 3 Mg/0.5 Mg (3 Ml) Ud) 3 ml IH Q2H PRN PRN Reason: Shortness of Breath Last Admin: 07/08/18 16:57 Dose: 3 ml Albuterol/Ipratropium (Duoneb 3 Mg/0.5 Mg (3 Ml) Ud) 3 ml IH [id number] [facility] Last Admin: 07/13/18 13:31 Dose: 3 ml Aspirin (Ecotrin) 81 mg PO DAILY [facility] Last Admin: 07/13/18 09:45 Dose: 81 mg Propofol (Diprivan) 1,000 mg in 100 mls @ 6.314 mls/hr IV .[id number] PRN; Protocol PRN Reason: TITRATE PER MD ORDER Last Titration: 07/09/18 08:00 Dose: 0 mcg/kg/min, 0 mls/hr Midazolam 100 mg/100ml in NS (Midazolam 100 Mg/100ml In Ns) 100 mg in 100 mls @ 2 mls/hr IV .Q24H PRN; Protocol PRN Reason: Sedation Last Titration: 07/09/18 08:15 Dose: 0 mg/hr, 0 mls/hr Cefepime HCl (Maxipime 1gm) 1 gm in 100 mls @ 100 mls/hr IVPB Q8 [facility]; Protocol Stop: 07/19/18 22:01 Last Admin: 07/13/18 05:30 Dose: 100 mls/hr Vancomycin HCl (Vancomycin 1gm) 1 gm in 250 mls @ 167 mls/hr IVPB Q12H [facility]; Protocol Stop: 07/20/18 18:46 Last Admin: 07/13/18 06:17 Dose: 167 mls/hr Acetaminophen (Ofirmev) 1,000 mg in 100 mls @ 400 mls/hr IVPB Q4H PRN PRN Reason: Temperature Stop: 07/15/18 04:36 Last Admin: 07/13/18 04:30 Dose: 400 mls/hr Sodium Chloride (Sodium Chloride 0.9%) 1,000 mls @ 250 mls/hr IV .Q4H [facility] Stop: 07/13/18 16:29 Last Admin: 07/13/18 12:29 Dose: 250 mls/hr Dexmedetomidine HCl (Precedex 400mcg/100ml) 400 mcg in 100 mls @ 5.33 mls/hr IV .[id number] PRN; Protocol PRN Reason: Agitation Lisinopril (Zestril) 10 mg PO DAILY [facility] Last Admin: 07/13/18 09:45 Dose: 10 mg Lorazepam (Ativan) 2 mg IVP Q2H PRN; Protocol PRN Reason: Anxiety Last Admin: 07/13/18 14:24 Dose: 2 mg Metoprolol Tartrate (Lopressor) 25 mg PO BID [facility] Last Admin: 07/13/18 09:45 Dose: 25 mg Nicotine (Nicoderm Cq) 1 patch TD DAILY [facility] Last Admin: 07/13/18 09:45 Dose: 1 patch Pantoprazole Sodium (Protonix Inj) 40 mg IVP Q12 [facility] Last Admin: 07/13/18 12:11 Dose: 40 mg Prasugrel (Effient) 10 mg PO DAILY [facility] Last Admin: 07/13/18 09:45 Dose: 10 mg Scopolamine (Transderm-Scop) 1 patch TD Q3D [facility] Last Admin: 07/11/18 22:29 Dose: 1 patch Thiamine HCl (Vitamin B1 Tab) 100 mg PO DAILY [facility] Last Admin: 07/13/18 09:45 Dose: 100 mg - Labs Labs: 07/13/18 05:20 07/13/18 05:20 PT 12.7 SECONDS (9.4-12.5) H 07/08/18 11:10 INR 1.12 07/08/18 11:10 APTT 27.6 Seconds (26.9-38.3) 07/08/18 11:10 - Constitutional Appears: No Acute Distress, trached - Head Exam Head Exam: NORMOCEPHALIC - Eye Exam Eye Exam: absent: Scleral icterus - ENT Exam ENT Exam: Mucous Membranes Moist - Neck Exam Neck exam: Positive for: Normal Inspection - Respiratory Exam Respiratory Exam: Clear to Auscultation Bilateral. absent: Rales, Rhonchi, Wheezes - Cardiovascular Exam Cardiovascular Exam: RRR, +S1, +S2. absent: Gallop, Rubs - GI/Abdominal Exam GI & Abdominal Exam: Normal Bowel Sounds, Soft. absent: Distended, Tenderness - Extremities Exam Extremities exam: Negative for: calf tenderness, pedal edema - Neurological Exam Additional comments: appears awake but is not alert, seen moving upper body/head only - Skin Skin Exam: Dry, Warm Assessment and Plan - Assessment and Plan (Free Text) Assessment: 53-year-old male with a past medical history alcohol abuse, obesity, hypertension, and tobacco abuse who presented to [facility] [place] of a syncopal episode. Patient was found to have an elevated troponin but refused a cardiac catheterization. Patient suffered cardiac arrest while in ultrasound, V. fib, and was subsequently taken to the [facility] with stenting of the RCA and placement of intra-aortic balloon pump. Infectious disease was consulted for sepsis. Plan: New SIRS, unclear source Sepsis from aspiration pneumonia with MSSA Ventilator dependent respiratory failure Anoxic brain injury Cardiac arrest CAD status post PCI Hypertension Tobacco abuse Tmax 102 at 0042 today Leukocytosis increased to 18 this morning Trach asp showing GNR, will follow ID and sensitivities Repeat procal negative Repeat BCx negative 2/2 day 1 New CXR reviewed, showed vascular congestion per radiology Empirically on vancomycin and cefepime GI and ICU notes reviewed and appreciated We will follow with you Patient was seen and examined and case to be discussed with attending physician. Thank you for the pleasure of participating in the care of this interesting payton ent <ColletteradhaColton - Last Filed: 07/13/18 15:29> Objective - Vital Signs/Intake and Output Vital Signs (last 24 hours): Temp Pulse Resp BP Pulse Ox 100 F H 92 H 27 H 147/54 L 99 07/13/18 01:42 07/13/18 06:00 07/12/18 18:00 07/13/18 00:40 07/12/18 18:28 Intake and Output: 07/13/18 07/13/18 06:59 18:59 Intake Total 1125 Balance 1125 - Medications Medications: Current Medications Albuterol/Ipratropium (Duoneb 3 Mg/0.5 Mg (3 Ml) Ud) 3 ml IH Q2H PRN PRN Reason: Shortness of Breath Last Admin: 07/08/18 16:57 Dose: 3 ml Albuterol/Ipratropium (Duoneb 3 Mg/0.5 Mg (3 Ml) Ud) 3 ml IH [id number] [facility] Last Admin: 07/13/18 13:31 Dose: 3 ml Aspirin (Ecotrin) 81 mg PO DAILY [facility] Last Admin: 07/13/18 09:45 Dose: 81 mg Propofol (Diprivan) 1,000 mg in 100 mls @ 6.314 mls/hr IV .[id number] PRN; Protocol PRN Reason: TITRATE PER MD ORDER Last Titration: 07/09/18 08:00 Dose: 0 mcg/kg/min, 0 mls/hr Midazolam 100 mg/100ml in NS (Midazolam 100 Mg/100ml In Ns) 100 mg in 100 mls @ 2 mls/hr IV .Q24H PRN; Protocol PRN Reason: Sedation Last Titration: 07/09/18 08:15 Dose: 0 mg/hr, 0 mls/hr Vancomycin HCl (Vancomycin 1gm) 1 gm in 250 mls @ 167 mls/hr IVPB Q12H [facility]; Protocol Stop: 07/20/18 18:46 Last Admin: 07/13/18 06:17 Dose: 167 mls/hr Acetaminophen (Ofirmev) 1,000 mg in 100 mls @ 400 mls/hr IVPB Q4H PRN PRN Reason: Temperature Stop: 07/15/18 04:36 Last Admin: 07/13/18 04:30 Dose: 400 mls/hr Sodium Chloride (Sodium Chloride 0.9%) 1,000 mls @ 250 mls/hr IV .Q4H [facility] Stop: 07/13/18 16:29 Last Admin: 07/13/18 12:29 Dose: 250 mls/hr Dexmedetomidine HCl (Precedex 400mcg/100ml) 400 mcg in 100 mls @ 5.33 mls/hr IV .[id number] PRN; Protocol PRN Reason: Agitation Last Admin: 07/13/18 15:21 Dose: 0.2 mcg/kg/hr, 5.33 mls/hr Lisinopril (Zestril) 10 mg PO DAILY [facility] Last Admin: 07/13/18 09:45 Dose: 10 mg Lorazepam (Ativan) 2 mg IVP Q2H PRN; Protocol PRN Reason: Anxiety Last Admin: 07/13/18 14:24 Dose: 2 mg Metoprolol Tartrate (Lopressor) 25 mg PO BID [facility] Last Admin: 07/13/18 09:45 Dose: 25 mg Nicotine (Nicoderm Cq) 1 patch TD DAILY [facility] Last Admin: 07/13/18 09:45 Dose: 1 patch Pantoprazole Sodium (Protonix Inj) 40 mg IVP DAILY [facility] Prasugrel (Effient) 10 mg PO DAILY [facility] Last Admin: 07/13/18 09:45 Dose: 10 mg Scopolamine (Transderm-Scop) 1 patch TD Q3D [facility] Last Admin: 07/11/18 22:29 Dose: 1 patch Thiamine HCl (Vitamin B1 Tab) 100 mg PO DAILY [facility] Last Admin: 07/13/18 09:45 Dose: 100 mg - Labs Labs: 07/13/18 05:20 07/13/18 05:20 PT 12.7 SECONDS (9.4-12.5) H 07/08/18 11:10 INR 1.12 07/08/18 11:10 APTT 27.6 Seconds (26.9-38.3) 07/08/18 11:10 Attending/Attestation - Attestation I have personally seen and examined this patient.: Yes I have fully participated in the care of the patient.: Yes I have reviewed all pertinent clinical information, including history, physical exam and plan: Yes
[2018-07-13] MEDS: Dexmedetomidine 400mcg/100mL 400 MCG/100 ML BOTTLE IV PRN ×2 (15:21→19:34)
[2018-07-13] MEDS ORDERED: NOREPINEPHRINE BIT/0.9 % NACL 4 MG/250 ML BAG IV PRN (17:50)
[2018-07-13] MEDS ORDERED: Sodium Chloride 0.9% 1,000 ML IV STA (17:50)
[2018-07-13] MEDS: Meropenem IV 1 gm in NS 1 GM/50 ML BAG IVPB SCH (23:41)
[2018-07-14] MEDS: Albuterol-Ipratrop 3 mg / 0.5 (3 ml) UD IH SCH ×4 (02:00→19:30)
[2018-07-14] MEDS: Dexmedetomidine 400mcg/100mL 400 MCG/100 ML BOTTLE IV PRN ×2 (04:52→23:30)
[2018-07-14 06:22] LABS: BASO # 0.02 K/mm3 (0.0-2.0); BASO % 0.2 % (0.0-3.0); EOS # 0.3 (0.0-0.7); EOS % 2.5 % (1.5-5.0); HEMOGLOBIN 11.5 g/dL (14.0-18.0); LYMPH # 1.3 (1.2-3.4); LYMPH % 12.1 % (22.0-35.0); MEAN CELL VOLUME 96.3 fl (80.0-105.0); MEAN CORPUSCULAR HEMOGLOBIN 30.6 pg (25.0-35.0); MEAN CORPUSCULAR HGB CONC 31.8 g/dl (31.0-37.0); MEAN PLATELET VOLUME 9.8 fl (7.0-11.0); MONO # 0.6 (0.1-0.6); MONO % 5.6 % (1.0-6.0); RBC 3.76 10^6/uL (3.5-6.1); RED CELL DISTRIBUTION WIDTH 14.3 % (11.5-14.5)
[2018-07-14] MEDS: Vancomycin 1gm in NS 250ml 1 GM/250 ML BAG IVPB SCH (07:07)
[2018-07-14 07:22] LABS: ALBUMIN 3.8 g/dL (3.0-4.8); ALT/SGPT 109 U/L (7-56); AST/SGOT 68 U/L (17-59); BLOOD UREA NITROGEN 43 mg/dL (7-21); CALCIUM 9.1 mg/dL (8.4-10.5); GFR NON-AFRICAN AMERICAN > 60
--- NOTE | 2018-07-14 07:58 | CP.CCUPN ---
<Jaime Cardenas - Last Filed: 07/14/18 14:59> CCU Subjective - Physician Review Subjective (Free Text): Jaime Cardenas DO. Critical Care Progress note Patient seen and examined at bedside, on PRVC trach ventilation, sedated on precedex. Overnight, Tmax 100.4 and hypotensive, started on levophed. Now stable and afebrile 07/14/18 14:42 CCU Objective - Vital Signs / Intake & Output Vital Signs (Last 4 hours): Vital Signs Temp Pulse Resp BP Pulse Ox 07/14/18 04:45 99.9 F H 77 97 07/14/18 04:36 100.0 F H 79 98 07/14/18 04:31 100.0 F H 79 99 07/14/18 04:30 100.0 F H 80 33 H 115/49 L 97 07/14/18 04:24 100.0 F H 79 96 07/14/18 04:13 100.0 F H 81 99 07/14/18 04:00 100.0 F H 78 20 125/79 96 Intake and Output (Last 8hrs): Intake & Output 07/13/18 07/14/18 07/14/18 22:59 06:59 14:59 Intake Total 1654 109 Output Total 700 Balance 954 109 Intake: IV 1654 109 Left Hand 1500 Output: Urine 700 Urethral ([place]) 700 - Physical Exam Head: Positive for: Atraumatic, Normocephalic Pupils: Positive for: Sluggish Extroacular Muscles: Positive for: EOMI Conjunctiva: Positive for: Normal Mouth: Positive for: Moist Mucous Membranes Nose (Internal): Positive for: Other (dried blood nticed, packing applied) Neck: Positive for: Normal Range of Motion. Negative for: JVD, Lymphadenopathy Respiratory/Chest: Positive for: Clear to Auscultation. Negative for: Wheezes, Rhonchi Cardiovascular: Positive for: Regular Rate and Rhythm, Normal S1, S2. Negative for: Murmurs, Rub, Gallop Abdomen: Positive for: Normal Bowel Sounds. Negative for: Distention, Mass/Organomegaly Back: Positive for: Normal Inspection Upper Extremity: Positive for: Normal Inspection, NORMAL PULSES. Negative for: Cyanosis, Edema Lower Extremity: Positive for: Normal Inspection, NORMAL PULSES. Negative for: Edema, Cyanosis, Swelling, Erythema Neurological: Positive for: Other (GCS =4 [id number]) Skin: Positive for: Warm, Dry, Normal Color. Negative for: Rashes Psychiatric: Positive for: Other (trach collar) - Medications Active Medications: Active Medications Generic Name Dose Route Start Last Admin Trade Name Freq PRN Reason Stop Dose Admin Albuterol/Ipratropium 3 ml 07/01/18 17:28 07/08/18 16:57 Duoneb 3 Mg/0.5 Mg (3 Ml) Ud IH 3 ml Q2H PRN Administration Shortness of Breath Albuterol/Ipratropium 3 ml 07/04/18 14:00 07/14/18 02:00 Duoneb 3 Mg/0.5 Mg (3 Ml) Ud IH 3 ml [id number] XU Administration Aspirin 81 mg 07/02/18 10:30 07/13/18 09:45 Ecotrin PO 81 mg DAILY XU Administration Vancomycin HCl 1 gm in 250 mls @ 167 mls/hr 07/11/18 18:45 07/14/18 07:07 Vancomycin 1gm IVPB 07/20/18 18:46 167 mls/hr Q12H XU Administration Protocol Acetaminophen 1,000 mg in 100 mls @ 400 mls/hr 07/13/18 04:35 07/13/18 17:25 Ofirmev IVPB 07/15/18 04:36 400 mls/hr Q4H PRN Administration Temperature Dexmedetomidine HCl 400 mcg in 100 mls @ 5.33 mls/hr 07/13/18 14:32 07/14/18 06:00 Precedex 400mcg/100ml IV 0.4 mcg/kg/hr .[id number] PRN 10.659 mls/hr Agitation Titration Protocol 0.2 MCG/KG/HR Meropenem 1 gm in 50 mls @ 100 mls/hr 07/13/18 22:00 07/13/18 23:41 Merrem Iv 1 Gm Premix IVPB 07/20/18 22:01 100 mls/hr Q12 XU Administration Protocol NOREPINEPHRINE BIT/0.9 % NACL 4 mg in 250 mls @ 15 mls/hr 07/13/18 17:50 07/13/18 23:38 Levophed 4 Mg/ 250 Ml Ns Premixed IV 0 mcg/min .[id number] PRN 0 mls/hr TITRATE PER MD ORDER Titration Protocol 4 MCG/MIN Lisinopril 10 mg 07/12/18 10:36 07/13/18 09:45 Zestril PO 10 mg DAILY XU Administration Lorazepam 2 mg 07/01/18 14:13 07/13/18 16:12 Ativan IVP 2 mg Q2H PRN Administration Anxiety Protocol Metoprolol Tartrate 25 mg 07/03/18 12:00 07/13/18 18:04 Lopressor PO Not Given BID XU Nicotine 1 patch 07/02/18 10:00 07/13/18 09:45 Nicoderm Cq TD 1 patch DAILY XU Administration Pantoprazole Sodium 40 mg 07/14/18 10:00 Protonix Inj IVP DAILY XU Prasugrel 10 mg 07/04/18 10:00 07/13/18 09:45 Effient PO 10 mg DAILY XU Administration Scopolamine 1 patch 07/11/18 21:30 07/11/18 22:29 Transderm-Scop TD 1 patch Q3D XU Administration Thiamine HCl 100 mg 07/11/18 12:30 07/13/18 09:45 Vitamin B1 Tab PO 100 mg DAILY XU Administration - Patient Studies Lab Studies: Microbiology Studies 07/11/18 19:00 Blood Culture - Preliminary Blood NO GROWTH AFTER 48 HOURS 07/11/18 18:45 Blood Culture - Preliminary Blood NO GROWTH AFTER 48 HOURS 07/12/18 05:30 MRSA Culture (Admit) - Final Naris MRSA NOT DETECTED 07/12/18 05:30 Gram Stain - Final Trachasp Sputum Culture - Preliminary Gram Negative Garrick Lab Studies 07/14/18 07/14/18 07/13/18 Range/Units 05:20 05:20 21:43 WBC 11.0 D (4.5-11.0) 10^3/uL RBC 3.76 (3.5-6.1) 10^6/uL Hgb 11.5 L (14.0-18.0) g/dL Hct 36.2 L (42.0-52.0) % MCV 96.3 (80.0-105.0) fl MCH 30.6 (25.0-35.0) pg MCHC 31.8 (31.0-37.0) g/dl RDW 14.3 (11.5-14.5) % Plt Count 348 (120.0-450.0) 10^3/uL MPV 9.8 (7.0-11.0) fl Neut % (Auto) 79.6 H (50.0-68.0) % Lymph % (Auto) 12.1 L (22.0-35.0) % Campbell % (Auto) 5.6 (1.0-6.0) % Eos % (Auto) 2.5 (1.5-5.0) % Baso % (Auto) 0.2 (0.0-3.0) % Lymph # (Auto) 1.3 (1.2-3.4) Campbell # (Auto) 0.6 (0.1-0.6) Eos # (Auto) 0.3 (0.0-0.7) Baso # (Auto) 0.02 (0.0-2.0) K/mm3 Absolute Neuts (auto) 8.74 H (1.4-6.5) Sodium 143 (132-148) mmol/L Potassium 4.4 (3.6-5.0) mmol/L Chloride 110 H (98-107) mmol/L Carbon Dioxide 26 (21-33) mmol/L Anion Gap 11 (10-20) BUN 43 H (7-21) mg/dL Creatinine 0.9 (0.8-1.5) mg/dl Est GFR ( Amer) > 60 Est GFR (Non-Af Amer) > 60 POC Glucose (mg/dL) 109 (65-110) mg/dL Random Glucose 108 (70-110) mg/dL Calcium 9.1 (8.4-10.5) mg/dL Phosphorus 3.5 (2.5-4.5) mg/dL Magnesium 2.6 H (1.7-2.2) mg/dL Total Bilirubin 0.6 (0.2-1.3) mg/dL AST 68 H (17-59) U/L ALT 109 H (7-56) U/L Alkaline Phosphatase 63 (38-126) U/L Total Protein 7.6 (5.8-8.3) g/dL Albumin 3.8 (3.0-4.8) g/dL Globulin 3.7 gm/dL Albumin/Globulin Ratio 1.0 L (1.1-1.8) 07/13/18 07/13/18 07/13/18 Range/Units 16:41 11:06 07:17 WBC (4.5-11.0) 10^3/uL RBC (3.5-6.1) 10^6/uL Hgb (14.0-18.0) g/dL Hct (42.0-52.0) % MCV (80.0-105.0) fl MCH (25.0-35.0) pg MCHC (31.0-37.0) g/dl RDW (11.5-14.5) % Plt Count (120.0-450.0) 10^3/uL MPV (7.0-11.0) fl Neut % (Auto) (50.0-68.0) % Lymph % (Auto) (22.0-35.0) % Campbell % (Auto) (1.0-6.0) % Eos % (Auto) (1.5-5.0) % Baso % (Auto) (0.0-3.0) % Lymph # (Auto) (1.2-3.4) Campbell # (Auto) (0.1-0.6) Eos # (Auto) (0.0-0.7) Baso # (Auto) (0.0-2.0) K/mm3 Absolute Neuts (auto) (1.4-6.5) Sodium (132-148) mmol/L Potassium (3.6-5.0) mmol/L Chloride (98-107) mmol/L Carbon Dioxide (21-33) mmol/L Anion Gap (10-20) BUN (7-21) mg/dL Creatinine (0.8-1.5) mg/dl Est GFR ( Amer) Est GFR (Non-Af Amer) POC Glucose (mg/dL) 117 H 102 92 (65-110) mg/dL Random Glucose (70-110) mg/dL Calcium (8.4-10.5) mg/dL Phosphorus (2.5-4.5) mg/dL Magnesium (1.7-2.2) mg/dL Total Bilirubin (0.2-1.3) mg/dL AST (17-59) U/L ALT (7-56) U/L Alkaline Phosphatase (38-126) U/L Total Protein (5.8-8.3) g/dL Albumin (3.0-4.8) g/dL Globulin gm/dL Albumin/Globulin Ratio (1.1-1.8) Laboratory Results - last 24 hr 07/13/18 07/13/18 07/13/18 07:17 11:06 16:41 WBC RBC Hgb Hct MCV MCH MCHC RDW Plt Count MPV Neut % (Auto) Lymph % (Auto) Campbell % (Auto) Eos % (Auto) Baso % (Auto) Lymph # (Auto) Campbell # (Auto) Eos # (Auto) Baso # (Auto) Absolute Neuts (auto) Sodium Potassium Chloride Carbon Dioxide Anion Gap BUN Creatinine Est GFR ( Amer) Est GFR (Non-Af Amer) POC Glucose (mg/dL) 92 102 117 H Random Glucose Calcium Phosphorus Magnesium Total Bilirubin AST ALT Alkaline Phosphatase Total Protein Albumin Globulin Albumin/Globulin Ratio 07/13/18 07/14/18 07/14/18 21:43 05:20 05:20 WBC 11.0 D RBC 3.76 Hgb 11.5 L Hct 36.2 L MCV 96.3 MCH 30.6 MCHC 31.8 RDW 14.3 Plt Count 348 MPV 9.8 Neut % (Auto) 79.6 H Lymph % (Auto) 12.1 L Campbell % (Auto) 5.6 Eos % (Auto) 2.5 Baso % (Auto) 0.2 Lymph # (Auto) 1.3 Campbell # (Auto) 0.6 Eos # (Auto) 0.3 Baso # (Auto) 0.02 Absolute Neuts (auto) 8.74 H Sodium 143 Potassium 4.4 Chloride 110 H Carbon Dioxide 26 Anion Gap 11 BUN 43 H Creatinine 0.9 Est GFR ( Amer) > 60 Est GFR (Non-Af Amer) > 60 POC Glucose (mg/dL) 109 Random Glucose 108 Calcium 9.1 Phosphorus 3.5 Magnesium 2.6 H Total Bilirubin 0.6 AST 68 H ALT 109 H Alkaline Phosphatase 63 Total Protein 7.6 Albumin 3.8 Globulin 3.7 Albumin/Globulin Ratio 1.0 L Radiology Impressions: Radiology Impressions Chest X-Ray 07/12/18 23:52 IMPRESSION: No active disease. Chest X-Ray 07/13/18 12:15 IMPRESSION: Moderate vascular congestion Fingerstick Blood Sugar Results: 106 Review of Systems - Review of Systems Systems not reviewed;Unavailable: Altered Mental Status Critical Care Progress Note - Ventilator Checklist Head of Bed 30 Degrees: Yes Daily Sedation Vacation: Yes Daily Assessment of Readiness to Wean: Yes Daily Spontaneous Breathing Trial: Yes PUD Prophalyxis: Yes DVT Prophylaxis: Yes Oral Care with Chlorhexidine Gluconate {CHG}: Yes - Vent Settings MODE:: PRVC TIDAL VOLUME:: 450 RESP RATE:: 15 FIO2:: 60 PEEP:: 5 - Extremities/Vascular Catheter Insertion Criteria: Patient has acute urinary retention or bladder outlet obstruction - Restraints Justification for Restraints: High risk for self extubation - Prophylaxis GI Prophylaxis GI: PPI - Prophylaxis DVT Prophylaxis DVT: Heparin SQ Assessment/Plan - Assessment and Plan (Free Text) Assessment: 53 y/o male admitted to ICU s/p VFib cardiac arrest with subsequent PCI with RCA stent placed. He sustained anoxic cerebral injury with diffuse cerebral edema requiring intubation. Now on trach ventilation and sedated on precedex Plan: Neuro: -hypoxic brain injury in the setting of VFib cardiac arrest with subsequent multiple defibrillation then PCI and RCA ANALISA placement -GCS=6 [id number] -on precedex. dose decreased to 0.1 mcg/kg/hr -hypothermic protocol not initiated on admission to ICU due to epistaxis and hemoptysis at that time -CT head: no ICH, diffuse cerebral edema -Video EEG: no seizure activity. Severe slowing/attenuation -continue ativan prn -continue thiamine 300 mg IV daily for neurocognitive activation as per neuro -started ritalin 5 mg daily as per neuro recs -started valproic acid 250 mg po bid -neuro following, Dr King -heavy smoker. nicotine patch 21 mg/24 hr -maintain normothermia Cardio: -cardiac arrest due to VFib s/p PCI with RCA ANALISA -continue asa, effient, -patient is hypotensive, mild BUN/Cr elevation. lisinopril decreased to 5 mg daily, lopressor decreased to 12.5 mg bid -statins held due to elevated LFT -maintain BP 130-140s/70-80s. MAP>65 -Echo: LVEF 45% LVH with hypokinesis, mild pulm HTN -cardiology following Pulm: -ventilator dependent respiratory failure. s/p tracheostomy (07/08) -on PRVC 450/15/5/60% try switching to tach collar -mouth hygeine, DVT/GI ppx, head elevation 30 degree, sedation vacation -COPD, chronic smoker, duonebs xu and prn -maintain O2>92% GI: -transaminitis likely due to shock liver in the setting of cardiac arrest -LFT fluctuating -patient alcoholic, obese -hepatitis panel negative -U/S abdomen: fibro/fatty liver infiltration -continue NG enteral feeding -as per GI note: continue NG feeding for one month then re-evaluate for possible PEG placement since this's a high risk procedure and not an emergency. Effient would need to be held up to 7 days before PEG could be placed. -consider PEG placement by IR. Dr Dee consulted Renal: -replete lytes as needed -UOP 700 cc -hold IVF. CXR shows volume overload -maintain euvolemia, euglycemia -UDS positive for amphetamine, benzo ID: -Tmax 100.4F last night. 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 on transferring the patient to LTACH facility in [place] Case reviewed and plan discussed with attending physician Dr Janeth Kim <Satinder Kim - Last Filed: 07/14/18 16:43> CCU Objective - Vital Signs / Intake & Output Vital Signs (Last 4 hours): Vital Signs Pulse 07/14/18 14:00 74 Intake and Output (Last 8hrs): Intake & Output 07/14/18 07/14/18 07/14/18 06:59 14:59 22:59 Intake Total 109 Balance 109 Intake: IV 109 - Medications Active Medications: Active Medications Generic Name Dose Route Start Last Admin Trade Name Freq PRN Reason Stop Dose Admin Albuterol/Ipratropium 3 ml 07/01/18 17:28 07/08/18 16:57 Duoneb 3 Mg/0.5 Mg (3 Ml) Ud IH 3 ml Q2H PRN Administration Shortness of Breath Albuterol/Ipratropium 3 ml 07/04/18 14:00 07/14/18 13:14 Duoneb 3 Mg/0.5 Mg (3 Ml) Ud IH 3 ml [id number] XU Administration Aspirin 81 mg 07/02/18 10:30 07/14/18 09:43 Ecotrin PO 81 mg DAILY XU Administration Heparin Sodium (Porcine) 5,000 units 07/14/18 11:15 07/14/18 11:36 Heparin SC 5,000 units Q12 UX Administration Protocol Acetaminophen 1,000 mg in 100 mls @ 400 mls/hr 07/13/18 04:35 07/13/18 17:25 Ofirmev IVPB 07/15/18 04:36 400 mls/hr Q4H PRN Administration Temperature Dexmedetomidine HCl 400 mcg in 100 mls @ 5.33 mls/hr 07/13/18 14:32 07/14/18 06:00 Precedex 400mcg/100ml IV 0.4 mcg/kg/hr .[id number] PRN 10.659 mls/hr Agitation Titration Protocol 0.2 MCG/KG/HR Meropenem 1 gm in 50 mls @ 100 mls/hr 07/13/18 22:00 07/14/18 09:41 Merrem Iv 1 Gm Premix IVPB 07/20/18 22:01 100 mls/hr Q12 XU Administration Protocol NOREPINEPHRINE BIT/0.9 % NACL 4 mg in 250 mls @ 15 mls/hr 07/13/18 17:50 07/13/18 23:38 Levophed 4 Mg/ 250 Ml Ns Premixed IV 0 mcg/min .[id number] PRN 0 mls/hr TITRATE PER MD ORDER Titration Protocol 4 MCG/MIN Thiamine HCl 300 mg/ Sodium 53 mls @ 106 mls/hr 07/14/18 15:30 Chloride IV DAILY XU Lisinopril 5 mg 07/14/18 13:02 Zestril PO DAILY XU Lorazepam 2 mg 07/01/18 14:13 07/13/18 16:12 Ativan IVP 2 mg Q2H PRN Administration Anxiety Protocol Methylphenidate HCl 5 mg 07/14/18 14:15 07/14/18 15:19 Ritalin PO 5 mg DAILY XU Administration Metoprolol Tartrate 12.5 mg 07/14/18 13:02 Lopressor PO BID XU Nicotine 1 patch 07/02/18 10:00 07/14/18 09:44 Nicoderm Cq TD 1 patch DAILY XU Administration Pantoprazole Sodium 40 mg 07/14/18 10:00 07/14/18 09:42 Protonix Inj IVP 40 mg DAILY XU Administration Prasugrel 10 mg 07/04/18 10:00 07/14/18 09:42 Effient PO 10 mg DAILY XU Administration Scopolamine 1 patch 07/11/18 21:30 07/11/18 22:29 Transderm-Scop TD 1 patch Q3D XU Administration Valproate Sodium 250 mg 07/14/18 18:00 Depakene Oral Soln PO BID XU - Patient Studies Lab Studies: Microbiology Studies 07/12/18 05:30 Gram Stain - Final Trachasp Sputum Culture - Final Klebsiella Pneumoniae Ssp Pneu 07/11/18 19:00 Blood Culture - Preliminary Blood NO GROWTH AFTER 48 HOURS 07/11/18 18:45 Blood Culture - Preliminary Blood NO GROWTH AFTER 48 HOURS 07/12/18 05:30 MRSA Culture (Admit) - Final Naris MRSA NOT DETECTED Lab Studies 07/14/18 07/14/18 07/14/18 Range/Units 15:54 11:39 09:30 WBC (4.5-11.0) 10^3/uL RBC (3.5-6.1) 10^6/uL Hgb (14.0-18.0) g/dL Hct (42.0-52.0) % MCV (80.0-105.0) fl MCH (25.0-35.0) pg MCHC (31.0-37.0) g/dl RDW (11.5-14.5) % Plt Count (120.0-450.0) 10^3/uL MPV (7.0-11.0) fl Neut % (Auto) (50.0-68.0) % Lymph % (Auto) (22.0-35.0) % Campbell % (Auto) (1.0-6.0) % Eos % (Auto) (1.5-5.0) % Baso % (Auto) (0.0-3.0) % Lymph # (Auto) (1.2-3.4) Campbell # (Auto) (0.1-0.6) Eos # (Auto) (0.0-0.7) Baso # (Auto) (0.0-2.0) K/mm3 Absolute Neuts (auto) (1.4-6.5) pCO2 37 (35-45) mm/Hg pO2 143.0 H (80-100) mm/Hg HCO3 21.9 (21-28) mmol/L ABG pH 7.38 (7.35-7.45) ABG Total CO2 23.0 (22-28) mmol.L ABG O2 Saturation 99.7 H (95-98) % ABG O2 Content 14.7 L (15-23) ML/dl ABG Base Excess -2.9 L (-2.0-3.0) mmol/L ABG Hemoglobin 10.6 L (11.7-17.4) g/dL ABG Carboxyhemoglobin 1.8 H (0.5-1.5) % POC ABG HHb (Measured) 0.3 (0-5) % ABG Methemoglobin 1.3 (0.0-3.0) % ABG O2 Capacity 14.7 L (16-24) mL/dl Hgb O2 Saturation 96.6 (95.0-98.0) % FiO2 60.0 % Sodium (132-148) mmol/L Potassium (3.6-5.0) mmol/L Chloride (98-107) mmol/L Carbon Dioxide (21-33) mmol/L Anion Gap (10-20) BUN (7-21) mg/dL Creatinine (0.8-1.5) mg/dl Est GFR ( Amer) Est GFR (Non-Af Amer) POC Glucose (mg/dL) 119 H 154 H (65-110) mg/dL Random Glucose (70-110) mg/dL Calcium (8.4-10.5) mg/dL Phosphorus (2.5-4.5) mg/dL Magnesium (1.7-2.2) mg/dL Total Bilirubin (0.2-1.3) mg/dL AST (17-59) U/L ALT (7-56) U/L Alkaline Phosphatase (38-126) U/L Total Protein (5.8-8.3) g/dL Albumin (3.0-4.8) g/dL Globulin gm/dL Albumin/Globulin Ratio (1.1-1.8) 07/14/18 07/14/18 07/14/18 Range/Units 08:22 07:57 05:20 WBC (4.5-11.0) 10^3/uL RBC (3.5-6.1) 10^6/uL Hgb (14.0-18.0) g/dL Hct (42.0-52.0) % MCV (80.0-105.0) fl MCH (25.0-35.0) pg MCHC (31.0-37.0) g/dl RDW (11.5-14.5) % Plt Count (120.0-450.0) 10^3/uL MPV (7.0-11.0) fl Neut % (Auto) (50.0-68.0) % Lymph % (Auto) (22.0-35.0) % Campbell % (Auto) (1.0-6.0) % Eos % (Auto) (1.5-5.0) % Baso % (Auto) (0.0-3.0) % Lymph # (Auto) (1.2-3.4) Campbell # (Auto) (0.1-0.6) Eos # (Auto) (0.0-0.7) Baso # (Auto) (0.0-2.0) K/mm3 Absolute Neuts (auto) (1.4-6.5) pCO2 (35-45) mm/Hg pO2 (80-100) mm/Hg HCO3 (21-28) mmol/L ABG pH (7.35-7.45) ABG Total CO2 (22-28) mmol.L ABG O2 Saturation (95-98) % ABG O2 Content (15-23) ML/dl ABG Base Excess (-2.0-3.0) mmol/L ABG Hemoglobin (11.7-17.4) g/dL ABG Carboxyhemoglobin (0.5-1.5) % POC ABG HHb (Measured) (0-5) % ABG Methemoglobin (0.0-3.0) % ABG O2 Capacity (16-24) mL/dl Hgb O2 Saturation (95.0-98.0) % FiO2 % Sodium 143 (132-148) mmol/L Potassium 4.4 (3.6-5.0) mmol/L Chloride 110 H (98-107) mmol/L Carbon Dioxide 26 (21-33) mmol/L Anion Gap 11 (10-20) BUN 43 H (7-21) mg/dL Creatinine 0.9 (0.8-1.5) mg/dl Est GFR ( Amer) > 60 Est GFR (Non-Af Amer) > 60 POC Glucose (mg/dL) 106 83 (65-110) mg/dL Random Glucose 108 (70-110) mg/dL Calcium 9.1 (8.4-10.5) mg/dL Phosphorus 3.5 (2.5-4.5) mg/dL Magnesium 2.6 H (1.7-2.2) mg/dL Total Bilirubin 0.6 (0.2-1.3) mg/dL AST 68 H (17-59) U/L ALT 109 H (7-56) U/L Alkaline Phosphatase 63 (38-126) U/L Total Protein 7.6 (5.8-8.3) g/dL Albumin 3.8 (3.0-4.8) g/dL Globulin 3.7 gm/dL Albumin/Globulin Ratio 1.0 L (1.1-1.8) 07/14/18 07/13/18 07/13/18 Range/Units 05:20 21:43 16:41 WBC 11.0 D (4.5-11.0) 10^3/uL RBC 3.76 (3.5-6.1) 10^6/uL Hgb 11.5 L (14.0-18.0) g/dL Hct 36.2 L (42.0-52.0) % MCV 96.3 (80.0-105.0) fl MCH 30.6 (25.0-35.0) pg MCHC 31.8 (31.0-37.0) g/dl RDW 14.3 (11.5-14.5) % Plt Count 348 (120.0-450.0) 10^3/uL MPV 9.8 (7.0-11.0) fl Neut % (Auto) 79.6 H (50.0-68.0) % Lymph % (Auto) 12.1 L (22.0-35.0) % Campbell % (Auto) 5.6 (1.0-6.0) % Eos % (Auto) 2.5 (1.5-5.0) % Baso % (Auto) 0.2 (0.0-3.0) % Lymph # (Auto) 1.3 (1.2-3.4) Campbell # (Auto) 0.6 (0.1-0.6) Eos # (Auto) 0.3 (0.0-0.7) Baso # (Auto) 0.02 (0.0-2.0) K/mm3 Absolute Neuts (auto) 8.74 H (1.4-6.5) pCO2 (35-45) mm/Hg pO2 (80-100) mm/Hg HCO3 (21-28) mmol/L ABG pH (7.35-7.45) ABG Total CO2 (22-28) mmol.L ABG O2 Saturation (95-98) % ABG O2 Content (15-23) ML/dl ABG Base Excess (-2.0-3.0) mmol/L ABG Hemoglobin (11.7-17.4) g/dL ABG Carboxyhemoglobin (0.5-1.5) % POC ABG HHb (Measured) (0-5) % ABG Methemoglobin (0.0-3.0) % ABG O2 Capacity (16-24) mL/dl Hgb O2 Saturation (95.0-98.0) % FiO2 % Sodium (132-148) mmol/L Potassium (3.6-5.0) mmol/L Chloride (98-107) mmol/L Carbon Dioxide (21-33) mmol/L Anion Gap (10-20) BUN (7-21) mg/dL Creatinine (0.8-1.5) mg/dl Est GFR ( Amer) Est GFR (Non-Af Amer) POC Glucose (mg/dL) 109 117 H (65-110) mg/dL Random Glucose (70-110) mg/dL Calcium (8.4-10.5) mg/dL Phosphorus (2.5-4.5) mg/dL Magnesium (1.7-2.2) mg/dL Total Bilirubin (0.2-1.3) mg/dL AST (17-59) U/L ALT (7-56) U/L Alkaline Phosphatase (38-126) U/L Total Protein (5.8-8.3) g/dL Albumin (3.0-4.8) g/dL Globulin gm/dL Albumin/Globulin Ratio (1.1-1.8) Laboratory Results - last 24 hr 07/13/18 07/13/18 07/14/18 16:41 21:43 05:20 WBC 11.0 D RBC 3.76 Hgb 11.5 L Hct 36.2 L MCV 96.3 MCH 30.6 MCHC 31.8 RDW 14.3 Plt Count 348 MPV 9.8 Neut % (Auto) 79.6 H Lymph % (Auto) 12.1 L Campbell % (Auto) 5.6 Eos % (Auto) 2.5 Baso % (Auto) 0.2 Lymph # (Auto) 1.3 Campbell # (Auto) 0.6 Eos # (Auto) 0.3 Baso # (Auto) 0.02 Absolute Neuts (auto) 8.74 H pCO2 pO2 HCO3 ABG pH ABG Total CO2 ABG O2 Saturation ABG O2 Content ABG Base Excess ABG Hemoglobin ABG Carboxyhemoglobin POC ABG HHb (Measured) ABG Methemoglobin ABG O2 Capacity Hgb O2 Saturation FiO2 Sodium Potassium Chloride Carbon Dioxide Anion Gap BUN Creatinine Est GFR ( Amer) Est GFR (Non-Af Amer) POC Glucose (mg/dL) 117 H 109 Random Glucose Calcium Phosphorus Magnesium Total Bilirubin AST ALT Alkaline Phosphatase Total Protein Albumin Globulin Albumin/Globulin Ratio 07/14/18 07/14/18 07/14/18 05:20 07:57 08:22 WBC RBC Hgb Hct MCV MCH MCHC RDW Plt Count MPV Neut % (Auto) Lymph % (Auto) Campbell % (Auto) Eos % (Auto) Baso % (Auto) Lymph # (Auto) Campbell # (Auto) Eos # (Auto) Baso # (Auto) Absolute Neuts (auto) pCO2 pO2 HCO3 ABG pH ABG Total CO2 ABG O2 Saturation ABG O2 Content ABG Base Excess ABG Hemoglobin ABG Carboxyhemoglobin POC ABG HHb (Measured) ABG Methemoglobin ABG O2 Capacity Hgb O2 Saturation FiO2 Sodium 143 Potassium 4.4 Chloride 110 H Carbon Dioxide 26 Anion Gap 11 BUN 43 H Creatinine 0.9 Est GFR ( Amer) > 60 Est GFR (Non-Af Amer) > 60 POC Glucose (mg/dL) 83 106 Random Glucose 108 Calcium 9.1 Phosphorus 3.5 Magnesium 2.6 H Total Bilirubin 0.6 AST 68 H ALT 109 H Alkaline Phosphatase 63 Total Protein 7.6 Albumin 3.8 Globulin 3.7 Albumin/Globulin Ratio 1.0 L 07/14/18 07/14/18 07/14/18 09:30 11:39 15:54 WBC RBC Hgb Hct MCV MCH MCHC RDW Plt Count MPV Neut % (Auto) Lymph % (Auto) Campbell % (Auto) Eos % (Auto) Baso % (Auto) Lymph # (Auto) Campbell # (Auto) Eos # (Auto) Baso # (Auto) Absolute Neuts (auto) pCO2 37 pO2 143.0 H HCO3 21.9 ABG pH 7.38 ABG Total CO2 23.0 ABG O2 Saturation 99.7 H ABG O2 Content 14.7 L ABG Base Excess -2.9 L ABG Hemoglobin 10.6 L ABG Carboxyhemoglobin 1.8 H POC ABG HHb (Measured) 0.3 ABG Methemoglobin 1.3 ABG O2 Capacity 14.7 L Hgb O2 Saturation 96.6 FiO2 60.0 Sodium Potassium Chloride Carbon Dioxide Anion Gap BUN Creatinine Est GFR ( Amer) Est GFR (Non-Af Amer) POC Glucose (mg/dL) 154 H 119 H Random Glucose Calcium Phosphorus Magnesium Total Bilirubin AST ALT Alkaline Phosphatase Total Protein Albumin Globulin Albumin/Globulin Ratio Addendum Addendum: 07/14/18 16:39 Patient seen and examined on rounds with resident, agree with note with following additions/exceptions: 53M with obesity, polysubstance abuse, EtOH abuse, HTN, smoker s/p Vfib arrest s/p PCI with RCA stent Syncope HTN VFIB arrest s/p ROSC s/p PCI CAD anoxic brain injury Resp failure tracheitis 2/2 kleb Yesterday evening patient was hypotensive, briefly require pressors this morning off pressors oxygenation much improved on vent PS given fluids +1L yesterday, SHABNAM resloved likely has significant degree of anoxic injury s/p trach 07/09 Recommend: abx per ID for tracheitis 2/2 klen cont PS via trach, trial trach collar keep fluid even today decrease lisinopril from 10 to 5mg and metoprolol from 25BIG to 12.5 BID given low BP and low HR caution for hyperCl- housestaff will d/w dr gallo regarding plan for PEG placement in the setting of requiring dual anti plat duonebs PRN, On ASA, Statin, Prasugrel for stent f/u Neuro rec and cardio rec PPI GI ppx hepSQ DVT ppx Dispo: will likely need PEG soon and SERGIO WORTHYU Attending
[2018-07-14 09:39] LABS: ARTERIAL BLOOD GAS HCO3 21.9 mmol/L (21-28); ARTERIAL BLOOD GAS HEMOGLOBIN 10.6 g/dL (11.7-17.4); ARTERIAL BLOOD GAS O2 CAPACITY 14.7 mL/dl (16-24); ARTERIAL BLOOD GAS O2 CONTENT 14.7 ML/dl (15-23); ARTERIAL BLOOD GAS O2 SAT 99.7 % (95-98); ARTERIAL BLOOD GAS PCO2 37 mm/Hg (35-45); ARTERIAL BLOOD GAS PH 7.38 (7.35-7.45)
[2018-07-14] MEDS: Meropenem IV 1 gm in NS 1 GM/50 ML BAG IVPB SCH ×2 (09:41→23:47)
--- NOTE | 2018-07-14 13:19 | PN ---
DATE: 07/14/2018 SUBJECTIVE: I saw him in the Intensive Care Unit. He is on the ventilator. He is not doing much today. He is on Ativan, DuoNebs, Ecotrin, Effient, Levophed, Lopressor, Merrem IV, Nicoderm, Tylenol, Precedex, Protonix, Transderm scop, vancomycin, vitamin B1, and Zestril. PHYSICAL EXAMINATION: VITAL SIGNS: He has a 99.9 temperature, was 100 earlier in the evening, 79 pulse, 115/49 blood pressure, 99% O2 sat on oxygen. HEAD: Atraumatic, normocephalic. HEART: Regular rate. LUNGS: Decreased breath sounds. ABDOMEN: Soft. EXTREMITIES: No edema. NEUROLOGIC: He is not alert today. LABORATORY DATA: White count 11, it was as high as 18, it is the best it has been in a while. Hemoglobin 11.5, hematocrit 36.2, platelets of 348. Sodium 143, potassium 4.4, BUN 42, creatinine 0.9, GFR is greater than 60, sugar is 108, calcium 9.1, phosphorous 3.5, magnesium 2.6, total bili is 0.6. AST is 68, ALT is 109, alk phos 53, total protein 7.6. He had positive Gram stains. Continue with aggressive treatment and care in Intensive Care Unit. He is being seen by Infectious Disease, the hospice care sales consultant, Cardiology. He is status post cardiogenic shock, anoxic cephalopathy, status post inferior wall NC, AFib. He had angioplasty with stent placement of an occluded right coronary artery. I do think he needs to end up in a long-term care facility. Hopefully, Sleep Manager can help us with that. Ministerio Wan DO
[2018-07-14] MEDS ORDERED: Thiamine 100 mg/ml Inj IV SCH (14:15)
--- NOTE | 2018-07-14 14:42 | PN ---
DATE: 07/14/2018 NEUROLOGY FOLLOWUP CHIEF COMPLAINT: Followup for status post hypoxic brain injury. SUBJECTIVE: The patient is seen and examined at the bedside, off sedation. He was on Precedex. Eyes are open, but not tracking, slow response to noxious stimulus in the lower extremities and has purposeless movements in the extremities in the bed. We recommended that he placed on thiamine 300 mg IV daily. In addition, he needs a much quicker PEG placement for p.o. meds. PAST MEDICAL HISTORY: Obesity, polysubstance abuse, EtOH abuse, hypertension, and smoker. ALLERGIES: NO KNOWN DRUG ALLERGIES. SOCIAL HISTORY: History of polysubstance abuse and EtOH abuse. FAMILY HISTORY: Noncontributory. REVIEW OF SYSTEMS: A 14-point review of systems could not be assessed due to the patient's altered mental status. MEDICATIONS: Reviewed by nurses' reconciliation sheet. PERTINENT LABORATORY DATA: Sodium is 142, potassium 4.4, chloride 110, carbon dioxide 26, BUN of 42, creatinine 0.9, and random glucose 108. PHYSICAL EXAMINATION: VITAL SIGNS: Temperature 98.6, blood pressure 109/58, and oxygen saturation via trach prior. HEENT: Atraumatic and normocephalic. PERRLA. Pupils are sluggishly reactive to light. NECK: Supple. No JVD. No adenopathy noted. Has a trach collar. HEART: S1 and S2, normal rate and rhythm. No murmurs, rubs or gallops. LUNGS: Clear to auscultation. No adventitious sounds. ABDOMEN: Soft, nontender, and nondistended. Bowel sounds present. EXTREMITIES: No clubbing. No cyanosis. Peripheral pulses 2+ bilaterally. NEUROLOGIC: The patient is on a trach, opens eyes, and responsive only to loud claps in terms of frequent blinking. His speech is difficult to assess at this time. Cranial nerves II through XII intact. Pupils are reactive to light and reflexes are present. Motor: Normal tone in the upper and lower extremities. There is spontaneous movement of the extremities and purposeless movements are seen of the extremities. Sensory: Withdraws to localized noxious stimulus in the lower extremities, but slowly. Toes are outgoing bilaterally. DTRs are 2+ throughout. Coordination and gait deferred for now. IMPRESSION: This is a 53 -year-old man with history of obesity, polysubstance abuse and ethanol abuse, hypertension, smoker, , and syncopal event status post ventricular fibrillation, cardiac arrest status post percutaneous coronary intervention in the right coronary artery status post stent. His initial CAT scan showed diffuse cerebral edema consistent with hypoxic brain injury. His EEG showed generalized slowing throughout the recording consistent with severe bilateral cerebral dysfunction, but no evidence of any epileptiform activity. Tyson King MD
--- NOTE | 2018-07-14 15:14 | PN ---
DATE: 07/14/2018 SUBJECTIVE: The patient's condition is essentially unchanged. PHYSICAL EXAMINATION: VITAL SIGNS: Blood pressure 109/58, heart rate is in the 60s. NECK: Negative JVD. LUNGS: Without rales. HEART: S1, S2. EXTREMITIES: Without edema. LABORATORY DATA: Hemoglobin is 11.5. Chemistries, BUN and creatinine are unremarkable. The glucose is 108. IMPRESSION: 1. Status post cardiogenic shock. 2. Anoxic encephalopathy. 3. Status post inferior wall myocardial infarction. 4. Coronary artery disease. 5. Respiratory failure. PLAN: Given these findings, the patient remains stable. The patient is for long-term care facility. Devonte Patel MD
--- NOTE | 2018-07-14 15:41 | CP.PCM.PN ---
<Nic Bae - Last Filed: 07/14/18 15:31> Subjective - Date & Time of Evaluation Date of Evaluation: 07/14/18 Time of Evaluation: 09:50 - Subjective Subjective: Nic Bae D.O. PGY-3, Internal Medicine Resident, Infectious Disease Progress Note 53-year-old male with a past medical history alcohol abuse, obesity, hypertension, and tobacco abuse who [place] [facility] [place]. Patient was found to have an elevated troponin but refused a cardiac catheterization. Patient suffered cardiac arrest while in ultrasound, V. fib, and was subsequently taken to the [facility] with stenting of the RCA and placement of intra-aortic balloon pump. Infectious disease was consulted for sepsis. Patient was seen and examined at bedside. Minimally active. Trached. On light sedation. Objective - Vital Signs/Intake and Output Vital Signs (last 24 hours): Temp Pulse Resp BP Pulse Ox 98.6 F 60 15 109/58 L 99 07/14/18 09:59 07/14/18 10:00 07/14/18 09:59 07/14/18 10:00 07/14/18 09:59 Intake and Output: 07/14/18 07/14/18 06:59 18:59 Intake Total 184 Balance 184 - Medications Medications: Current Medications Albuterol/Ipratropium (Duoneb 3 Mg/0.5 Mg (3 Ml) Ud) 3 ml IH Q2H PRN PRN Reason: Shortness of Breath Last Admin: 07/08/18 16:57 Dose: 3 ml Albuterol/Ipratropium (Duoneb 3 Mg/0.5 Mg (3 Ml) Ud) 3 ml IH [id number] ALIN Last Admin: 07/14/18 13:14 Dose: 3 ml Aspirin (Ecotrin) 81 mg PO DAILY ALIN Last Admin: 07/14/18 09:43 Dose: 81 mg Heparin Sodium (Porcine) (Heparin) 5,000 units SC Q12 ALIN; Protocol Last Admin: 07/14/18 11:36 Dose: 5,000 units Vancomycin HCl (Vancomycin 1gm) 1 gm in 250 mls @ 167 mls/hr IVPB Q12H ALIN; Protocol Stop: 07/20/18 18:46 Last Admin: 07/14/18 07:07 Dose: 167 mls/hr Acetaminophen (Ofirmev) 1,000 mg in 100 mls @ 400 mls/hr IVPB Q4H PRN PRN Reason: Temperature Stop: 07/15/18 04:36 Last Admin: 07/13/18 17:25 Dose: 400 mls/hr Dexmedetomidine HCl (Precedex 400mcg/100ml) 400 mcg in 100 mls @ 5.33 mls/hr IV .[id number] PRN; Protocol PRN Reason: Agitation Last Titration: 07/14/18 06:00 Dose: 0.4 mcg/kg/hr, 10.659 mls/hr Meropenem (Merrem Iv 1 Gm Premix) 1 gm in 50 mls @ 100 mls/hr IVPB Q12 ALIN; Protocol Stop: 07/20/18 22:01 Last Admin: 07/14/18 09:41 Dose: 100 mls/hr NOREPINEPHRINE BIT/0.9 % NACL (Levophed 4 Mg/ 250 Ml Ns Premixed) 4 mg in 250 mls @ 15 mls/hr IV .[id number] PRN; Protocol PRN Reason: TITRATE PER MD ORDER Last Titration: 07/13/18 23:38 Dose: 0 mcg/min, 0 mls/hr Thiamine HCl 300 mg/ Sodium (Chloride) 53 mls @ 106 mls/hr IV DAILY [facility] Lisinopril (Zestril) 5 mg PO DAILY [facility] Lorazepam (Ativan) 2 mg IVP Q2H PRN; Protocol PRN Reason: Anxiety Last Admin: 07/13/18 16:12 Dose: 2 mg Methylphenidate HCl (Ritalin) 5 mg PO DAILY [facility] Last Admin: 07/14/18 15:19 Dose: 5 mg Metoprolol Tartrate (Lopressor) 12.5 mg PO BID [facility] Nicotine (Nicoderm Cq) 1 patch TD DAILY [facility] Last Admin: 07/14/18 09:44 Dose: 1 patch Pantoprazole Sodium (Protonix Inj) 40 mg IVP DAILY [facility] Last Admin: 07/14/18 09:42 Dose: 40 mg Prasugrel (Effient) 10 mg PO DAILY [facility] Last Admin: 07/14/18 09:42 Dose: 10 mg Scopolamine (Transderm-Scop) 1 patch TD Q3D [facility] Last Admin: 07/11/18 22:29 Dose: 1 patch Valproate Sodium (Depakene Oral Soln) 250 mg PO BID [facility] - Labs Labs: 07/14/18 05:20 07/14/18 05:20 PT 12.7 SECONDS (9.4-12.5) H 07/08/18 11:10 INR 1.12 07/08/18 11:10 APTT 27.6 Seconds (26.9-38.3) 07/08/18 11:10 - Constitutional Appears: No Acute Distress, trached - Head Exam Head Exam: NORMOCEPHALIC - Eye Exam Eye Exam: absent: Scleral icterus - ENT Exam ENT Exam: Mucous Membranes Moist - Neck Exam Neck exam: Positive for: Normal Inspection - Respiratory Exam Respiratory Exam: Clear to Auscultation Bilateral. absent: Rales, Rhonchi, Wheezes - Cardiovascular Exam Cardiovascular Exam: RRR, +S1, +S2. absent: Gallop, Rubs - GI/Abdominal Exam GI & Abdominal Exam: Normal Bowel Sounds, Soft. absent: Distended, Tenderness - Extremities Exam Extremities exam: Negative for: calf tenderness, pedal edema - Neurological Exam Additional comments: appears awake but is not alert - Skin Skin Exam: Dry, Warm Assessment and Plan - Assessment and Plan (Free Text) Assessment: 53-year-old male with a past medical history alcohol abuse, obesity, hypertension, and tobacco abuse who [place] [facility] [place]. Patient was found to have an elevated troponin but refused a cardiac catheterization. Patient suffered cardiac arrest while in ultrasound, V. fib, and was subsequently taken to the [facility] with stenting of the RCA and placement of intra-aortic balloon pump. Infectious disease was consulted for sepsis. Plan: Sepsis likely 2/2 HAP with Klebsiella in trach asp Sepsis from aspiration pneumonia with MSSA Ventilator dependent respiratory failure Anoxic brain injury Cardiac arrest CAD status post PCI Hypertension Tobacco abuse Has defervesed No leukocytosis Trach asp grew Klebsiella garcia sensitive Repeat BCx negative 2/2 day 2 Will discontinue vancomycin Continue meropenem day 2 GI and ICU notes reviewed and appreciated We will follow with you Patient was seen and examined and case to be discussed with attending physician. Thank you for the pleasure of participating in the care of this interesting patient <Colton Michelle - Last Filed: 07/14/18 18:06> Objective - Vital Signs/Intake and Output Vital Signs (last 24 hours): Temp Pulse Resp BP Pulse Ox 98.6 F 74 15 109/58 L 99 04/02/19 09:59 07/14/18 14:00 07/14/18 09:59 07/14/18 10:00 07/14/18 09:59 Intake and Output: 07/14/18 07/14/18 06:59 18:59 Intake Total 184 Balance 184 - Medications Medications: Current Medications Albuterol/Ipratropium (Duoneb 3 Mg/0.5 Mg (3 Ml) Ud) 3 ml IH Q2H PRN PRN Reason: Shortness of Breath Last Admin: 07/08/18 16:57 Dose: 3 ml Albuterol/Ipratropium (Duoneb 3 Mg/0.5 Mg (3 Ml) Ud) 3 ml IH [id number] ALIN Last Admin: 07/14/18 13:14 Dose: 3 ml Aspirin (Ecotrin) 81 mg PO DAILY [facility] Last Admin: 07/14/18 09:43 Dose: 81 mg Heparin Sodium (Porcine) (Heparin) 5,000 units SC Q12 ALIN; Protocol Last Admin: 07/14/18 11:36 Dose: 5,000 units Acetaminophen (Ofirmev) 1,000 mg in 100 mls @ 400 mls/hr IVPB Q4H PRN PRN Reason: Temperature Stop: 07/15/18 04:36 Last Admin: 07/13/18 17:25 Dose: 400 mls/hr Dexmedetomidine HCl (Precedex 400mcg/100ml) 400 mcg in 100 mls @ 5.33 mls/hr IV .[id number] PRN; Protocol PRN Reason: Agitation Last Titration: 07/14/18 06:00 Dose: 0.4 mcg/kg/hr, 10.659 mls/hr Meropenem (Merrem Iv 1 Gm Premix) 1 gm in 50 mls @ 100 mls/hr IVPB Q12 ALIN; Protocol Stop: 07/20/18 22:01 Last Admin: 07/14/18 09:41 Dose: 100 mls/hr NOREPINEPHRINE BIT/0.9 % NACL (Levophed 4 Mg/ 250 Ml Ns Premixed) 4 mg in 250 mls @ 15 mls/hr IV .[id number] PRN; Protocol PRN Reason: TITRATE PER MD ORDER Last Titration: 07/13/18 23:38 Dose: 0 mcg/min, 0 mls/hr Thiamine HCl 300 mg/ Sodium (Chloride) 53 mls @ 106 mls/hr IV DAILY [facility] Last Admin: 07/14/18 17:35 Dose: 106 mls/hr Lisinopril (Zestril) 5 mg PO DAILY [facility] Lorazepam (Ativan) 2 mg IVP Q2H PRN; Protocol PRN Reason: Anxiety Last Admin: 07/13/18 16:12 Dose: 2 mg Methylphenidate HCl (Ritalin) 5 mg PO DAILY [facility] Last Admin: 07/14/18 15:19 Dose: 5 mg Metoprolol Tartrate (Lopressor) 12.5 mg PO BID [facility] Nicotine (Nicoderm Cq) 1 patch TD DAILY [facility] Last Admin: 07/14/18 09:44 Dose: 1 patch Pantoprazole Sodium (Protonix Inj) 40 mg IVP DAILY [facility] Last Admin: 07/14/18 09:42 Dose: 40 mg Prasugrel (Effient) 10 mg PO DAILY [facility] Last Admin: 07/14/18 09:42 Dose: 10 mg Scopolamine (Transderm-Scop) 1 patch TD Q3D [facility] Last Admin: 07/11/18 22:29 Dose: 1 patch Valproate Sodium (Depakene Oral Soln) 250 mg PO BID [facility] - Labs Labs: 07/14/18 05:20 07/14/18 05:20 PT 12.7 SECONDS (9.4-12.5) H 07/08/18 11:10 INR 1.12 07/08/18 11:10 APTT 27.6 Seconds (26.9-38.3) 07/08/18 11:10 Attending/Attestation - Attestation I have personally seen and examined this patient.: Yes I have fully participated in the care of the patient.: Yes I have reviewed all pertinent clinical information, including history, physical exam and plan: Yes
[2018-07-14] MEDS: Valproic Acid 250 mg/5 ml UD Cup PO SCH (18:14)
[2018-07-15] MEDS: Albuterol-Ipratrop 3 mg / 0.5 (3 ml) UD IH SCH ×4 (01:30→20:01)
[2018-07-15 05:55] LABS: ARTERIAL BLOOD GAS HCO3 24.2 mmol/L (21-28); ARTERIAL BLOOD GAS O2 CAPACITY 20.4 mL/dl (16-24); ARTERIAL BLOOD GAS O2 CONTENT 19.9 ML/dl (15-23); ARTERIAL BLOOD GAS O2 SAT 97.5 % (95-98); ARTERIAL BLOOD GAS PCO2 40 mm/Hg (35-45); ARTERIAL BLOOD GAS PH 7.39 (7.35-7.45); ARTERIAL BLOOD GAS TCO2 25.4 mmol.L (22-28)
[2018-07-15 06:29] LABS: BASO # 0.02 K/mm3 (0.0-2.0); BASO % 0.2 % (0.0-3.0); EOS # 0.3 (0.0-0.7); EOS % 2.1 % (1.5-5.0); HEMOGLOBIN 11.5 g/dL (14.0-18.0); LYMPH # 1.6 (1.2-3.4); LYMPH % 12.9 % (22.0-35.0); MEAN CELL VOLUME 95.8 fl (80.0-105.0); MEAN CORPUSCULAR HEMOGLOBIN 30.1 pg (25.0-35.0); MEAN CORPUSCULAR HGB CONC 31.4 g/dl (31.0-37.0); MEAN PLATELET VOLUME 9.9 fl (7.0-11.0); MONO # 0.5 (0.1-0.6); MONO % 3.7 % (1.0-6.0); RBC 3.82 10^6/uL (3.5-6.1); RED CELL DISTRIBUTION WIDTH 14.2 % (11.5-14.5)
[2018-07-15 06:46] LABS: ALBUMIN 3.7 g/dL (3.0-4.8); ALT/SGPT 104 U/L (7-56); AST/SGOT 77 U/L (17-59); BLOOD UREA NITROGEN 37 mg/dL (7-21); GFR NON-AFRICAN AMERICAN > 60
--- NOTE | 2018-07-15 08:07 | CP.CCUPN ---
<Jaime Cardenas - Last Filed: 07/15/18 10:57> CCU Subjective - Physician Review Subjective (Free Text): Jaime Cardenas DO. Critical Care Progress note Patient seen and examined at bedside, on PRVC trach ventilation, sedated on precedex 0.2 mcg/kg/hr. Overnight, Tmax 101.1 with no significant events. CCU Objective - Vital Signs / Intake & Output Intake and Output (Last 8hrs): Intake & Output 07/14/18 07/15/18 07/15/18 22:59 06:59 14:59 Intake Total 746 Output Total 625 Balance 121 Intake: IV 746 Left Hand 650 Output: Urine 625 Urethral ([place]) 625 - Physical Exam Head: Positive for: Atraumatic, Normocephalic Pupils: Positive for: Sluggish Extroacular Muscles: Positive for: EOMI Conjunctiva: Positive for: Normal Mouth: Positive for: Moist Mucous Membranes Nose (Internal): Positive for: Other (dried blood nticed, packing applied) Neck: Positive for: Normal Range of Motion. Negative for: JVD, Lymphadenopathy Respiratory/Chest: Positive for: Clear to Auscultation. Negative for: Wheezes, Rhonchi Cardiovascular: Positive for: Regular Rate and Rhythm, Normal S1, S2. Negative for: Murmurs, Rub, Gallop Abdomen: Positive for: Normal Bowel Sounds. Negative for: Distention, Mass/Organomegaly Back: Positive for: Normal Inspection Upper Extremity: Positive for: Normal Inspection, NORMAL PULSES. Negative for: Cyanosis, Edema Lower Extremity: Positive for: Normal Inspection, NORMAL PULSES. Negative for: Edema, Cyanosis, Swelling, Erythema Neurological: Positive for: Other (GCS =4 [id number]) Skin: Positive for: Warm, Dry, Normal Color. Negative for: Rashes Psychiatric: Positive for: Other (trach collar) - Medications Active Medications: Active Medications Generic Name Dose Route Start Last Admin Trade Name Freq PRN Reason Stop Dose Admin Albuterol/Ipratropium 3 ml 07/01/18 17:28 07/08/18 16:57 Duoneb 3 Mg/0.5 Mg (3 Ml) Ud IH 3 ml Q2H PRN Administration Shortness of Breath Albuterol/Ipratropium 3 ml 07/04/18 14:00 07/15/18 07:45 Duoneb 3 Mg/0.5 Mg (3 Ml) Ud IH 3 ml [id number] XU Administration Aspirin 81 mg 07/02/18 10:30 07/14/18 09:43 Ecotrin PO 81 mg DAILY XU Administration Heparin Sodium (Porcine) 5,000 units 07/14/18 11:15 07/14/18 22:30 Heparin SC 5,000 units Q12 XU Administration Protocol Dexmedetomidine HCl 400 mcg in 100 mls @ 5.33 mls/hr 07/13/18 14:32 07/14/18 23:30 Precedex 400mcg/100ml IV 0.4 mcg/kg/hr .[id number] PRN 10.659 mls/hr Agitation Administration Protocol 0.2 MCG/KG/HR Meropenem 1 gm in 50 mls @ 100 mls/hr 07/13/18 22:00 07/14/18 23:47 Merrem Iv 1 Gm Premix IVPB 07/20/18 22:01 100 mls/hr Q12 XU Administration Protocol NOREPINEPHRINE BIT/0.9 % NACL 4 mg in 250 mls @ 15 mls/hr 07/13/18 17:50 07/13/18 23:38 Levophed 4 Mg/ 250 Ml Ns Premixed IV 0 mcg/min .[id number] PRN 0 mls/hr TITRATE PER MD ORDER Titration Protocol 4 MCG/MIN Thiamine HCl 300 mg/ Sodium 53 mls @ 106 mls/hr 07/14/18 15:30 07/14/18 17:35 Chloride IV 106 mls/hr DAILY XU Administration Lisinopril 5 mg 07/14/18 13:02 07/14/18 18:14 Zestril PO 5 mg DAILY XU Administration Lorazepam 2 mg 07/01/18 14:13 07/13/18 16:12 Ativan IVP 2 mg Q2H PRN Administration Anxiety Protocol Methylphenidate HCl 5 mg 07/14/18 14:15 07/14/18 15:19 Ritalin PO 5 mg DAILY XU Administration Metoprolol Tartrate 12.5 mg 07/14/18 13:02 07/14/18 18:15 Lopressor PO 12.5 mg BID XU Administration Nicotine 1 patch 07/02/18 10:00 07/14/18 09:44 Nicoderm Cq TD 1 patch DAILY XU Administration Pantoprazole Sodium 40 mg 07/14/18 10:00 07/14/18 09:42 Protonix Inj IVP 40 mg DAILY XU Administration Prasugrel 10 mg 07/04/18 10:00 07/14/18 09:42 Effient PO 10 mg DAILY XU Administration Scopolamine 1 patch 07/11/18 21:30 07/14/18 22:00 Transderm-Scop TD 1 patch Q3D XU Administration Valproate Sodium 250 mg 07/14/18 18:00 07/14/18 18:14 Depakene Oral Soln PO 250 mg BID XU Administration - Patient Studies Lab Studies: Microbiology Studies 07/11/18 19:00 Blood Culture - Preliminary Blood NO GROWTH AFTER 3 DAYS 07/11/18 18:45 Blood Culture - Preliminary Blood NO GROWTH AFTER 3 DAYS 07/12/18 05:30 Gram Stain - Final Trachasp Sputum Culture - Final Klebsiella Pneumoniae Ssp Pneu Lab Studies 07/15/18 07/15/18 07/15/18 Range/Units 05:32 05:30 05:30 WBC 12.0 H (4.5-11.0) 10^3/uL RBC 3.82 (3.5-6.1) 10^6/uL Hgb 11.5 L (14.0-18.0) g/dL Hct 36.6 L (42.0-52.0) % MCV 95.8 (80.0-105.0) fl MCH 30.1 (25.0-35.0) pg MCHC 31.4 (31.0-37.0) g/dl RDW 14.2 (11.5-14.5) % Plt Count 396 (120.0-450.0) 10^3/uL MPV 9.9 (7.0-11.0) fl Neut % (Auto) 81.1 H (50.0-68.0) % Lymph % (Auto) 12.9 L (22.0-35.0) % [place] % (Auto) 3.7 (1.0-6.0) % Eos % (Auto) 2.1 (1.5-5.0) % Baso % (Auto) 0.2 (0.0-3.0) % Lymph # (Auto) 1.6 (1.2-3.4) [place] # (Auto) 0.5 (0.1-0.6) Eos # (Auto) 0.3 (0.0-0.7) Baso # (Auto) 0.02 (0.0-2.0) K/mm3 Absolute Neuts (auto) 9.76 H (1.4-6.5) pCO2 40 (35-45) mm/Hg pO2 77.0 L (80-100) mm/Hg HCO3 24.2 (21-28) mmol/L ABG pH 7.39 (7.35-7.45) ABG Total CO2 25.4 (22-28) mmol.L ABG O2 Saturation 97.5 (95-98) % ABG O2 Content 19.9 (15-23) ML/dl ABG Base Excess -0.7 (-2.0-3.0) mmol/L ABG Hemoglobin 15.0 (11.7-17.4) g/dL ABG Carboxyhemoglobin 2.0 H (0.5-1.5) % POC ABG HHb (Measured) 2.4 (0-5) % ABG Methemoglobin 1.4 (0.0-3.0) % ABG O2 Capacity 20.4 (16-24) mL/dl Hgb O2 Saturation 94.1 L (95.0-98.0) % FiO2 60.0 % Sodium 142 (132-148) mmol/L Potassium 4.6 (3.6-5.0) mmol/L Chloride 107 (98-107) mmol/L Carbon Dioxide 27 (21-33) mmol/L Anion Gap 12 (10-20) BUN 37 H (7-21) mg/dL Creatinine 0.8 (0.8-1.5) mg/dl Est GFR ( Amer) > 60 Est GFR (Non-Af Amer) > 60 POC Glucose (mg/dL) (65-110) mg/dL Random Glucose 110 (70-110) mg/dL Calcium 9.0 (8.4-10.5) mg/dL Phosphorus 3.5 (2.5-4.5) mg/dL Magnesium 2.6 H (1.7-2.2) mg/dL Total Bilirubin 0.6 (0.2-1.3) mg/dL AST 77 H (17-59) U/L ALT 104 H (7-56) U/L Alkaline Phosphatase 66 (38-126) U/L Total Protein 7.4 (5.8-8.3) g/dL Albumin 3.7 (3.0-4.8) g/dL Globulin 3.7 gm/dL Albumin/Globulin Ratio 1.0 L (1.1-1.8) 07/15/18 07/15/18 07/14/18 Range/Units 04:59 00:19 20:00 WBC (4.5-11.0) 10^3/uL RBC (3.5-6.1) 10^6/uL Hgb (14.0-18.0) g/dL Hct (42.0-52.0) % MCV (80.0-105.0) fl MCH (25.0-35.0) pg MCHC (31.0-37.0) g/dl RDW (11.5-14.5) % Plt Count (120.0-450.0) 10^3/uL MPV (7.0-11.0) fl Neut % (Auto) (50.0-68.0) % Lymph % (Auto) (22.0-35.0) % [place] % (Auto) (1.0-6.0) % Eos % (Auto) (1.5-5.0) % Baso % (Auto) (0.0-3.0) % Lymph # (Auto) (1.2-3.4) [place] # (Auto) (0.1-0.6) Eos # (Auto) (0.0-0.7) Baso # (Auto) (0.0-2.0) K/mm3 Absolute Neuts (auto) (1.4-6.5) pCO2 (35-45) mm/Hg pO2 (80-100) mm/Hg HCO3 (21-28) mmol/L ABG pH (7.35-7.45) ABG Total CO2 (22-28) mmol.L ABG O2 Saturation (95-98) % ABG O2 Content (15-23) ML/dl ABG Base Excess (-2.0-3.0) mmol/L ABG Hemoglobin (11.7-17.4) g/dL ABG Carboxyhemoglobin (0.5-1.5) % POC ABG HHb (Measured) (0-5) % ABG Methemoglobin (0.0-3.0) % ABG O2 Capacity (16-24) mL/dl Hgb O2 Saturation (95.0-98.0) % FiO2 % Sodium (132-148) mmol/L Potassium (3.6-5.0) mmol/L Chloride (98-107) mmol/L Carbon Dioxide (21-33) mmol/L Anion Gap (10-20) BUN (7-21) mg/dL Creatinine (0.8-1.5) mg/dl Est GFR ( Amer) Est GFR (Non-Af Amer) POC Glucose (mg/dL) 113 H 93 126 H (65-110) mg/dL Random Glucose (70-110) mg/dL Calcium (8.4-10.5) mg/dL Phosphorus (2.5-4.5) mg/dL Magnesium (1.7-2.2) mg/dL Total Bilirubin (0.2-1.3) mg/dL AST (17-59) U/L ALT (7-56) U/L Alkaline Phosphatase (38-126) U/L Total Protein (5.8-8.3) g/dL Albumin (3.0-4.8) g/dL Globulin gm/dL Albumin/Globulin Ratio (1.1-1.8) 07/14/18 07/14/18 07/14/18 Range/Units 15:54 11:39 09:30 WBC (4.5-11.0) 10^3/uL RBC (3.5-6.1) 10^6/uL Hgb (14.0-18.0) g/dL Hct (42.0-52.0) % MCV (80.0-105.0) fl MCH (25.0-35.0) pg MCHC (31.0-37.0) g/dl RDW (11.5-14.5) % Plt Count (120.0-450.0) 10^3/uL MPV (7.0-11.0) fl Neut % (Auto) (50.0-68.0) % Lymph % (Auto) (22.0-35.0) % [place] % (Auto) (1.0-6.0) % Eos % (Auto) (1.5-5.0) % Baso % (Auto) (0.0-3.0) % Lymph # (Auto) (1.2-3.4) [place] # (Auto) (0.1-0.6) Eos # (Auto) (0.0-0.7) Baso # (Auto) (0.0-2.0) K/mm3 Absolute Neuts (auto) (1.4-6.5) pCO2 37 (35-45) mm/Hg pO2 143.0 H (80-100) mm/Hg HCO3 21.9 (21-28) mmol/L ABG pH 7.38 (7.35-7.45) ABG Total CO2 23.0 (22-28) mmol.L ABG O2 Saturation 99.7 H (95-98) % ABG O2 Content 14.7 L (15-23) ML/dl ABG Base Excess -2.9 L (-2.0-3.0) mmol/L ABG Hemoglobin 10.6 L (11.7-17.4) g/dL ABG Carboxyhemoglobin 1.8 H (0.5-1.5) % POC ABG HHb (Measured) 0.3 (0-5) % ABG Methemoglobin 1.3 (0.0-3.0) % ABG O2 Capacity 14.7 L (16-24) mL/dl Hgb O2 Saturation 96.6 (95.0-98.0) % FiO2 60.0 % Sodium (132-148) mmol/L Potassium (3.6-5.0) mmol/L Chloride (98-107) mmol/L Carbon Dioxide (21-33) mmol/L Anion Gap (10-20) BUN (7-21) mg/dL Creatinine (0.8-1.5) mg/dl Est GFR ( Amer) Est GFR (Non-Af Amer) POC Glucose (mg/dL) 119 H 154 H (65-110) mg/dL Random Glucose (70-110) mg/dL Calcium (8.4-10.5) mg/dL Phosphorus (2.5-4.5) mg/dL Magnesium (1.7-2.2) mg/dL Total Bilirubin (0.2-1.3) mg/dL AST (17-59) U/L ALT (7-56) U/L Alkaline Phosphatase (38-126) U/L Total Protein (5.8-8.3) g/dL Albumin (3.0-4.8) g/dL Globulin gm/dL Albumin/Globulin Ratio (1.1-1.8) 07/14/18 Range/Units 08:22 WBC (4.5-11.0) 10^3/uL RBC (3.5-6.1) 10^6/uL Hgb (14.0-18.0) g/dL Hct (42.0-52.0) % MCV (80.0-105.0) fl MCH (25.0-35.0) pg MCHC (31.0-37.0) g/dl RDW (11.5-14.5) % Plt Count (120.0-450.0) 10^3/uL MPV (7.0-11.0) fl Neut % (Auto) (50.0-68.0) % Lymph % (Auto) (22.0-35.0) % [place] % (Auto) (1.0-6.0) % Eos % (Auto) (1.5-5.0) % Baso % (Auto) (0.0-3.0) % Lymph # (Auto) (1.2-3.4) [place] # (Auto) (0.1-0.6) Eos # (Auto) (0.0-0.7) Baso # (Auto) (0.0-2.0) K/mm3 Absolute Neuts (auto) (1.4-6.5) pCO2 (35-45) mm/Hg pO2 (80-100) mm/Hg HCO3 (21-28) mmol/L ABG pH (7.35-7.45) ABG Total CO2 (22-28) mmol.L ABG O2 Saturation (95-98) % ABG O2 Content (15-23) ML/dl ABG Base Excess (-2.0-3.0) mmol/L ABG Hemoglobin (11.7-17.4) g/dL ABG Carboxyhemoglobin (0.5-1.5) % POC ABG HHb (Measured) (0-5) % ABG Methemoglobin (0.0-3.0) % ABG O2 Capacity (16-24) mL/dl Hgb O2 Saturation (95.0-98.0) % FiO2 % Sodium (132-148) mmol/L Potassium (3.6-5.0) mmol/L Chloride (98-107) mmol/L Carbon Dioxide (21-33) mmol/L Anion Gap (10-20) BUN (7-21) mg/dL Creatinine (0.8-1.5) mg/dl Est GFR ( Amer) Est GFR (Non-Af Amer) POC Glucose (mg/dL) 106 (65-110) mg/dL Random Glucose (70-110) mg/dL Calcium (8.4-10.5) mg/dL Phosphorus (2.5-4.5) mg/dL Magnesium (1.7-2.2) mg/dL Total Bilirubin (0.2-1.3) mg/dL AST (17-59) U/L ALT (7-56) U/L Alkaline Phosphatase (38-126) U/L Total Protein (5.8-8.3) g/dL Albumin (3.0-4.8) g/dL Globulin gm/dL Albumin/Globulin Ratio (1.1-1.8) Laboratory Results - last 24 hr 07/14/18 07/14/18 07/14/18 08:22 09:30 11:39 WBC RBC Hgb Hct MCV MCH MCHC RDW Plt Count MPV Neut % (Auto) Lymph % (Auto) [place] % (Auto) Eos % (Auto) Baso % (Auto) Lymph # (Auto) [place] # (Auto) Eos # (Auto) Baso # (Auto) Absolute Neuts (auto) pCO2 37 pO2 143.0 H HCO3 21.9 ABG pH 7.38 ABG Total CO2 23.0 ABG O2 Saturation 99.7 H ABG O2 Content 14.7 L ABG Base Excess -2.9 L ABG Hemoglobin 10.6 L ABG Carboxyhemoglobin 1.8 H POC ABG HHb (Measured) 0.3 ABG Methemoglobin 1.3 ABG O2 Capacity 14.7 L Hgb O2 Saturation 96.6 FiO2 60.0 Sodium Potassium Chloride Carbon Dioxide Anion Gap BUN Creatinine Est GFR ( Amer) Est GFR (Non-Af Amer) POC Glucose (mg/dL) 106 154 H Random Glucose Calcium Phosphorus Magnesium Total Bilirubin AST ALT Alkaline Phosphatase Total Protein Albumin Globulin Albumin/Globulin Ratio 07/14/18 07/14/18 07/15/18 15:54 20:00 00:19 WBC RBC Hgb Hct MCV MCH MCHC RDW Plt Count MPV Neut % (Auto) Lymph % (Auto) [place] % (Auto) Eos % (Auto) Baso % (Auto) Lymph # (Auto) [place] # (Auto) Eos # (Auto) Baso # (Auto) Absolute Neuts (auto) pCO2 pO2 HCO3 ABG pH ABG Total CO2 ABG O2 Saturation ABG O2 Content ABG Base Excess ABG Hemoglobin ABG Carboxyhemoglobin POC ABG HHb (Measured) ABG Methemoglobin ABG O2 Capacity Hgb O2 Saturation FiO2 Sodium Potassium Chloride Carbon Dioxide Anion Gap BUN Creatinine Est GFR ( Amer) Est GFR (Non-Af Amer) POC Glucose (mg/dL) 119 H 126 H 93 Random Glucose Calcium Phosphorus Magnesium Total Bilirubin AST ALT Alkaline Phosphatase Total Protein Albumin Globulin Albumin/Globulin Ratio 07/15/18 07/15/18 07/15/18 04:59 05:30 05:30 WBC 12.0 H RBC 3.82 Hgb 11.5 L Hct 36.6 L MCV 95.8 MCH 30.1 MCHC 31.4 RDW 14.2 Plt Count 396 MPV 9.9 Neut % (Auto) 81.1 H Lymph % (Auto) 12.9 L [place] % (Auto) 3.7 Eos % (Auto) 2.1 Baso % (Auto) 0.2 Lymph # (Auto) 1.6 [place] # (Auto) 0.5 Eos # (Auto) 0.3 Baso # (Auto) 0.02 Absolute Neuts (auto) 9.76 H pCO2 pO2 HCO3 ABG pH ABG Total CO2 ABG O2 Saturation ABG O2 Content ABG Base Excess ABG Hemoglobin ABG Carboxyhemoglobin POC ABG HHb (Measured) ABG Methemoglobin ABG O2 Capacity Hgb O2 Saturation FiO2 Sodium 142 Potassium 4.6 Chloride 107 Carbon Dioxide 27 Anion Gap 12 BUN 37 H Creatinine 0.8 Est GFR ( Amer) > 60 Est GFR (Non-Af Amer) > 60 POC Glucose (mg/dL) 113 H Random Glucose 110 Calcium 9.0 Phosphorus 3.5 Magnesium 2.6 H Total Bilirubin 0.6 AST 77 H ALT 104 H Alkaline Phosphatase 66 Total Protein 7.4 Albumin 3.7 Globulin 3.7 Albumin/Globulin Ratio 1.0 L 07/15/18 05:32 WBC RBC Hgb Hct MCV MCH MCHC RDW Plt Count MPV Neut % (Auto) Lymph % (Auto) [place] % (Auto) Eos % (Auto) Baso % (Auto) Lymph # (Auto) [place] # (Auto) Eos # (Auto) Baso # (Auto) Absolute Neuts (auto) pCO2 40 pO2 77.0 L HCO3 24.2 ABG pH 7.39 ABG Total CO2 25.4 ABG O2 Saturation 97.5 ABG O2 Content 19.9 ABG Base Excess -0.7 ABG Hemoglobin 15.0 ABG Carboxyhemoglobin 2.0 H POC ABG HHb (Measured) 2.4 ABG Methemoglobin 1.4 ABG O2 Capacity 20.4 Hgb O2 Saturation 94.1 L FiO2 60.0 Sodium Potassium Chloride Carbon Dioxide Anion Gap BUN Creatinine Est GFR ( Amer) Est GFR (Non-Af Amer) POC Glucose (mg/dL) Random Glucose Calcium Phosphorus Magnesium Total Bilirubin AST ALT Alkaline Phosphatase Total Protein Albumin Globulin Albumin/Globulin Ratio Fingerstick Blood Sugar Results: 106 Critical Care Progress Note - Ventilator Checklist Head of Bed 30 Degrees: Yes Daily Sedation Vacation: Yes Daily Assessment of Readiness to Wean: Yes Daily Spontaneous Breathing Trial: Yes PUD Prophalyxis: Yes DVT Prophylaxis: Yes Oral Care with Chlorhexidine Gluconate {CHG}: Yes Assessment/Plan - Assessment and Plan (Free Text) Assessment: 53 y/o male admitted to ICU s/p VFib cardiac arrest with subsequent PCI with RCA stent placed. He sustained hypoxic cerebral injury with diffuse cerebral edema requiring intubation. Now on trach ventilation and off sedation Plan: Neuro: -hypoxic brain injury in the setting of VFib cardiac arrest with subsequent multiple defibrillation then PCI and RCA ANALISA placement -GCS=6 [id number] -d/c precedex -hypothermic protocol not initiated on admission to ICU due to epistaxis and hemoptysis at that time -CT head: no ICH, diffuse cerebral edema -Video EEG: no seizure activity. Severe slowing/attenuation -continue ativan prn -continue thiamine 300 mg IV daily for neurocognitive activation as per neuro -started ritalin 5 mg daily as per neuro recs -started valproic acid 250 mg po bid for purposeless movement -neuro following, Dr King -heavy smoker. nicotine patch 21 mg/24 hr -maintain normothermia Cardio: -cardiac arrest due to VFib s/p PCI with RCA ANALISA -continue asa, effient, -patient is hypotensive, mild BUN/Cr elevation. lisinopril decreased to 5 mg daily, lopressor decreased to 12.5 mg bid -statins held due to elevated LFT -maintain BP 130-140s/70-80s. MAP>65 -Echo: LVEF 45% LVH with hypokinesis, mild pulm HTN -cardiology following Pulm: -ventilator dependent respiratory failure. s/p tracheostomy (07/08) -on PRVC 450/15/5/60% try switching to tach collar -mouth hygeine, DVT/GI ppx, head elevation 30 degree, sedation vacation -COPD, chronic smoker, duonebs xu and prn -maintain O2>92% GI: -transaminitis likely due to shock liver in the setting of cardiac arrest. trending down -patient alcoholic, obese -hepatitis panel negative -U/S abdomen: fibro/fatty liver infiltration -continue NG enteral feeding -as per GI note: continue NG feeding for one month then re-evaluate for possible PEG placement since this's a high risk procedure and not an emergency. Effient would need to be held up to 7 days before PEG could be placed. -PEG placement by IR. Dr Dee today Renal: -replete lytes as needed -UOP 700 cc -hold IVF. CXR shows volume overload -maintain euvolemia, euglycemia -UDS positive for amphetamine, benzo ID: -Tmax 100.4F last night. 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 on transferring the patient to LTACH facility in [place] Case reviewed and plan discussed with attending physician Dr Amrbiz <Brandon Ambriz - Last Filed: 07/15/18 11:58> CCU Objective - Vital Signs / Intake & Output Vital Signs (Last 4 hours): Vital Signs Temp Pulse Resp BP Pulse Ox 07/15/18 10:40 99.1 F 65 21 118/74 100 07/15/18 10:20 99.1 F 67 21 107/66 99 07/15/18 10:00 99.1 F 66 20 105/66 100 07/15/18 09:40 99.1 F 67 21 98/63 L 100 07/15/18 09:20 99.1 F 69 21 97/56 L 99 07/15/18 09:15 70 105/63 07/15/18 09:00 99.1 F 68 18 105/63 84 L 07/15/18 08:41 99.3 F 64 15 93/52 L 96 07/15/18 08:20 99.3 F 66 17 91/48 L 97 07/15/18 08:00 99.3 F 64 16 110/82 96 Intake and Output (Last 8hrs): Intake & Output 07/14/18 07/15/18 07/15/18 22:59 06:59 14:59 Intake Total 746 90 Output Total 625 Balance 121 90 Intake: IV 746 90 Left Hand 650 Output: Urine 625 Urethral ([place]) 625 - Medications Active Medications: Active Medications Generic Name Dose Route Start Last Admin Trade Name Freq PRN Reason Stop Dose Admin Albuterol/Ipratropium 3 ml 07/01/18 17:28 07/08/18 16:57 Duoneb 3 Mg/0.5 Mg (3 Ml) Ud IH 3 ml Q2H PRN Administration Shortness of Breath Albuterol/Ipratropium 3 ml 07/04/18 14:00 07/15/18 07:45 Duoneb 3 Mg/0.5 Mg (3 Ml) Ud IH 3 ml [id number] XU Administration Aspirin 81 mg 07/02/18 10:30 07/15/18 09:15 Ecotrin PO 81 mg DAILY XU Administration Heparin Sodium (Porcine) 5,000 units 07/14/18 11:15 07/15/18 09:19 Heparin SC 5,000 units Q12 XU Administration Protocol Meropenem 1 gm in 50 mls @ 100 mls/hr 07/13/18 22:00 07/15/18 09:17 Merrem Iv 1 Gm Premix IVPB 07/20/18 22:01 100 mls/hr Q12 XU Administration Protocol Thiamine HCl 300 mg/ Sodium 53 mls @ 106 mls/hr 07/14/18 15:30 07/15/18 10:42 Chloride IV 106 mls/hr DAILY XU Administration Vancomycin HCl 1 gm in 250 mls @ 167 mls/hr 07/15/18 08:15 07/15/18 09:18 Vancomycin 1gm IVPB 167 mls/hr Q12H XU Administration Protocol Lisinopril 5 mg 07/14/18 13:02 07/15/18 09:15 Zestril PO 5 mg DAILY XU Administration Lorazepam 2 mg 07/01/18 14:13 07/13/18 16:12 Ativan IVP 2 mg Q2H PRN Administration Anxiety Protocol Methylphenidate HCl 5 mg 07/14/18 14:15 07/15/18 09:15 Ritalin PO 5 mg DAILY XU Administration Metoprolol Tartrate 12.5 mg 07/14/18 13:02 07/15/18 09:15 Lopressor PO 12.5 mg BID XU Administration Nicotine 1 patch 07/02/18 10:00 07/15/18 09:16 Nicoderm Cq TD 1 patch DAILY XU Administration Pantoprazole Sodium 40 mg 07/14/18 10:00 07/15/18 09:16 Protonix Inj IVP 40 mg DAILY XU Administration Prasugrel 10 mg 07/04/18 10:00 07/15/18 09:16 Effient PO 10 mg DAILY XU Administration Scopolamine 1 patch 07/11/18 21:30 07/14/18 22:00 Transderm-Scop TD 1 patch Q3D XU Administration Valproate Sodium 250 mg 07/14/18 18:00 07/15/18 09:15 Depakene Oral Soln PO 250 mg BID XU Administration - Patient Studies Lab Studies: Microbiology Studies 07/11/18 19:00 Blood Culture - Preliminary Blood NO GROWTH AFTER 3 DAYS 07/11/18 18:45 Blood Culture - Preliminary Blood NO GROWTH AFTER 3 DAYS 07/12/18 05:30 Gram Stain - Final Trachasp Sputum Culture - Final Klebsiella Pneumoniae Ssp Pneu Lab Studies 07/15/18 07/15/18 07/15/18 Range/Units 07:47 05:32 05:30 WBC (4.5-11.0) 10^3/uL RBC (3.5-6.1) 10^6/uL Hgb (14.0-18.0) g/dL Hct (42.0-52.0) % MCV (80.0-105.0) fl MCH (25.0-35.0) pg MCHC (31.0-37.0) g/dl RDW (11.5-14.5) % Plt Count (120.0-450.0) 10^3/uL MPV (7.0-11.0) fl Neut % (Auto) (50.0-68.0) % Lymph % (Auto) (22.0-35.0) % [place] % (Auto) (1.0-6.0) % Eos % (Auto) (1.5-5.0) % Baso % (Auto) (0.0-3.0) % Lymph # (Auto) (1.2-3.4) [place] # (Auto) (0.1-0.6) Eos # (Auto) (0.0-0.7) Baso # (Auto) (0.0-2.0) K/mm3 Absolute Neuts (auto) (1.4-6.5) pCO2 40 (35-45) mm/Hg pO2 77.0 L (80-100) mm/Hg HCO3 24.2 (21-28) mmol/L ABG pH 7.39 (7.35-7.45) ABG Total CO2 25.4 (22-28) mmol.L ABG O2 Saturation 97.5 (95-98) % ABG O2 Content 19.9 (15-23) ML/dl ABG Base Excess -0.7 (-2.0-3.0) mmol/L ABG Hemoglobin 15.0 (11.7-17.4) g/dL ABG Carboxyhemoglobin 2.0 H (0.5-1.5) % POC ABG HHb (Measured) 2.4 (0-5) % ABG Methemoglobin 1.4 (0.0-3.0) % ABG O2 Capacity 20.4 (16-24) mL/dl Hgb O2 Saturation 94.1 L (95.0-98.0) % FiO2 60.0 % Sodium 142 (132-148) mmol/L Potassium 4.6 (3.6-5.0) mmol/L Chloride 107 (98-107) mmol/L Carbon Dioxide 27 (21-33) mmol/L Anion Gap 12 (10-20) BUN 37 H (7-21) mg/dL Creatinine 0.8 (0.8-1.5) mg/dl Est GFR ( Amer) > 60 Est GFR (Non-Af Amer) > 60 POC Glucose (mg/dL) 101 (65-110) mg/dL Random Glucose 110 (70-110) mg/dL Calcium 9.0 (8.4-10.5) mg/dL Phosphorus 3.5 (2.5-4.5) mg/dL Magnesium 2.6 H (1.7-2.2) mg/dL Total Bilirubin 0.6 (0.2-1.3) mg/dL AST 77 H (17-59) U/L ALT 104 H (7-56) U/L Alkaline Phosphatase 66 (38-126) U/L Total Protein 7.4 (5.8-8.3) g/dL Albumin 3.7 (3.0-4.8) g/dL Globulin 3.7 gm/dL Albumin/Globulin Ratio 1.0 L (1.1-1.8) 07/15/18 07/15/18 07/15/18 Range/Units 05:30 04:59 00:19 WBC 12.0 H (4.5-11.0) 10^3/uL RBC 3.82 (3.5-6.1) 10^6/uL Hgb 11.5 L (14.0-18.0) g/dL Hct 36.6 L (42.0-52.0) % MCV 95.8 (80.0-105.0) fl MCH 30.1 (25.0-35.0) pg MCHC 31.4 (31.0-37.0) g/dl RDW 14.2 (11.5-14.5) % Plt Count 396 (120.0-450.0) 10^3/uL MPV 9.9 (7.0-11.0) fl Neut % (Auto) 81.1 H (50.0-68.0) % Lymph % (Auto) 12.9 L (22.0-35.0) % [place] % (Auto) 3.7 (1.0-6.0) % Eos % (Auto) 2.1 (1.5-5.0) % Baso % (Auto) 0.2 (0.0-3.0) % Lymph # (Auto) 1.6 (1.2-3.4) [place] # (Auto) 0.5 (0.1-0.6) Eos # (Auto) 0.3 (0.0-0.7) Baso # (Auto) 0.02 (0.0-2.0) K/mm3 Absolute Neuts (auto) 9.76 H (1.4-6.5) pCO2 (35-45) mm/Hg pO2 (80-100) mm/Hg HCO3 (21-28) mmol/L ABG pH (7.35-7.45) ABG Total CO2 (22-28) mmol.L ABG O2 Saturation (95-98) % ABG O2 Content (15-23) ML/dl ABG Base Excess (-2.0-3.0) mmol/L ABG Hemoglobin (11.7-17.4) g/dL ABG Carboxyhemoglobin (0.5-1.5) % POC ABG HHb (Measured) (0-5) % ABG Methemoglobin (0.0-3.0) % ABG O2 Capacity (16-24) mL/dl Hgb O2 Saturation (95.0-98.0) % FiO2 % Sodium (132-148) mmol/L Potassium (3.6-5.0) mmol/L Chloride (98-107) mmol/L Carbon Dioxide (21-33) mmol/L Anion Gap (10-20) BUN (7-21) mg/dL Creatinine (0.8-1.5) mg/dl Est GFR ( Amer) Est GFR (Non-Af Amer) POC Glucose (mg/dL) 113 H 93 (65-110) mg/dL Random Glucose (70-110) mg/dL Calcium (8.4-10.5) mg/dL Phosphorus (2.5-4.5) mg/dL Magnesium (1.7-2.2) mg/dL Total Bilirubin (0.2-1.3) mg/dL AST (17-59) U/L ALT (7-56) U/L Alkaline Phosphatase (38-126) U/L Total Protein (5.8-8.3) g/dL Albumin (3.0-4.8) g/dL Globulin gm/dL Albumin/Globulin Ratio (1.1-1.8) 07/14/18 07/14/18 Range/Units 20:00 15:54 WBC (4.5-11.0) 10^3/uL RBC (3.5-6.1) 10^6/uL Hgb (14.0-18.0) g/dL Hct (42.0-52.0) % MCV (80.0-105.0) fl MCH (25.0-35.0) pg MCHC (31.0-37.0) g/dl RDW (11.5-14.5) % Plt Count (120.0-450.0) 10^3/uL MPV (7.0-11.0) fl Neut % (Auto) (50.0-68.0) % Lymph % (Auto) (22.0-35.0) % [place] % (Auto) (1.0-6.0) % Eos % (Auto) (1.5-5.0) % Baso % (Auto) (0.0-3.0) % Lymph # (Auto) (1.2-3.4) [place] # (Auto) (0.1-0.6) Eos # (Auto) (0.0-0.7) Baso # (Auto) (0.0-2.0) K/mm3 Absolute Neuts (auto) (1.4-6.5) pCO2 (35-45) mm/Hg pO2 (80-100) mm/Hg HCO3 (21-28) mmol/L ABG pH (7.35-7.45) ABG Total CO2 (22-28) mmol.L ABG O2 Saturation (95-98) % ABG O2 Content (15-23) ML/dl ABG Base Excess (-2.0-3.0) mmol/L ABG Hemoglobin (11.7-17.4) g/dL ABG Carboxyhemoglobin (0.5-1.5) % POC ABG HHb (Measured) (0-5) % ABG Methemoglobin (0.0-3.0) % ABG O2 Capacity (16-24) mL/dl Hgb O2 Saturation (95.0-98.0) % FiO2 % Sodium (132-148) mmol/L Potassium (3.6-5.0) mmol/L Chloride (98-107) mmol/L Carbon Dioxide (21-33) mmol/L Anion Gap (10-20) BUN (7-21) mg/dL Creatinine (0.8-1.5) mg/dl Est GFR ( Amer) Est GFR (Non-Af Amer) POC Glucose (mg/dL) 126 H 119 H (65-110) mg/dL Random Glucose (70-110) mg/dL Calcium (8.4-10.5) mg/dL Phosphorus (2.5-4.5) mg/dL Magnesium (1.7-2.2) mg/dL Total Bilirubin (0.2-1.3) mg/dL AST (17-59) U/L ALT (7-56) U/L Alkaline Phosphatase (38-126) U/L Total Protein (5.8-8.3) g/dL Albumin (3.0-4.8) g/dL Globulin gm/dL Albumin/Globulin Ratio (1.1-1.8) Laboratory Results - last 24 hr 07/14/18 07/14/18 07/15/18 15:54 20:00 00:19 WBC RBC Hgb Hct MCV MCH MCHC RDW Plt Count MPV Neut % (Auto) Lymph % (Auto) [place] % (Auto) Eos % (Auto) Baso % (Auto) Lymph # (Auto) [place] # (Auto) Eos # (Auto) Baso # (Auto) Absolute Neuts (auto) pCO2 pO2 HCO3 ABG pH ABG Total CO2 ABG O2 Saturation ABG O2 Content ABG Base Excess ABG Hemoglobin ABG Carboxyhemoglobin POC ABG HHb (Measured) ABG Methemoglobin ABG O2 Capacity Hgb O2 Saturation FiO2 Sodium Potassium Chloride Carbon Dioxide Anion Gap BUN Creatinine Est GFR ( Amer) Est GFR (Non-Af Amer) POC Glucose (mg/dL) 119 H 126 H 93 Random Glucose Calcium Phosphorus Magnesium Total Bilirubin AST ALT Alkaline Phosphatase Total Protein Albumin Globulin Albumin/Globulin Ratio 07/15/18 07/15/18 07/15/18 04:59 05:30 05:30 WBC 12.0 H RBC 3.82 Hgb 11.5 L Hct 36.6 L MCV 95.8 MCH 30.1 MCHC 31.4 RDW 14.2 Plt Count 396 MPV 9.9 Neut % (Auto) 81.1 H Lymph % (Auto) 12.9 L [place] % (Auto) 3.7 Eos % (Auto) 2.1 Baso % (Auto) 0.2 Lymph # (Auto) 1.6 [place] # (Auto) 0.5 Eos # (Auto) 0.3 Baso # (Auto) 0.02 Absolute Neuts (auto) 9.76 H pCO2 pO2 HCO3 ABG pH ABG Total CO2 ABG O2 Saturation ABG O2 Content ABG Base Excess ABG Hemoglobin ABG Carboxyhemoglobin POC ABG HHb (Measured) ABG Methemoglobin ABG O2 Capacity Hgb O2 Saturation FiO2 Sodium 142 Potassium 4.6 Chloride 107 Carbon Dioxide 27 Anion Gap 12 BUN 37 H Creatinine 0.8 Est GFR ( Amer) > 60 Est GFR (Non-Af Amer) > 60 POC Glucose (mg/dL) 113 H Random Glucose 110 Calcium 9.0 Phosphorus 3.5 Magnesium 2.6 H Total Bilirubin 0.6 AST 77 H ALT 104 H Alkaline Phosphatase 66 Total Protein 7.4 Albumin 3.7 Globulin 3.7 Albumin/Globulin Ratio 1.0 L 07/15/18 07/15/18 05:32 07:47 WBC RBC Hgb Hct MCV MCH MCHC RDW Plt Count MPV Neut % (Auto) Lymph % (Auto) [place] % (Auto) Eos % (Auto) Baso % (Auto) Lymph # (Auto) [place] # (Auto) Eos # (Auto) Baso # (Auto) Absolute Neuts (auto) pCO2 40 pO2 77.0 L HCO3 24.2 ABG pH 7.39 ABG Total CO2 25.4 ABG O2 Saturation 97.5 ABG O2 Content 19.9 ABG Base Excess -0.7 ABG Hemoglobin 15.0 ABG Carboxyhemoglobin 2.0 H POC ABG HHb (Measured) 2.4 ABG Methemoglobin 1.4 ABG O2 Capacity 20.4 Hgb O2 Saturation 94.1 L FiO2 60.0 Sodium Potassium Chloride Carbon Dioxide Anion Gap BUN Creatinine Est GFR ( Amer) Est GFR (Non-Af Amer) POC Glucose (mg/dL) 101 Random Glucose Calcium Phosphorus Magnesium Total Bilirubin AST ALT Alkaline Phosphatase Total Protein Albumin Globulin Albumin/Globulin Ratio Attending/Attestation - Attestation I have personally seen and examined this patient.: Yes I have fully participated in the care of the patient.: Yes I have reviewed all pertinent clinical information: Yes Notes (Text): 07/15/18 11:56 The patient was seen and examined at the bedside. Patient care was discussed with resident Medical records, lab studies, and imaging were reviewed and management issues were discussed and formulated. Agree with above treatment plans as outlined in 's note with addition of the following: sp CPR arrest \VDRF \ Hypoxemia \ Sepsis \ PNA \ Anoxic Brain injury -hemodynamic monitoring to maintain MAP>65 -cardiology team f\u -mechanical ventilation and o2 supplementation to maintain Spo2 >90 Pao2>60 -monitor for TV 6ml\kg IBW and plateau pressure <30 -ABG in AM reviewed -continue nebs and pulmonary toileting -continue broad spectrum Abx as per ID team and f\u cultures -f\u Bun\Cr and U\o; monitor and replace e-lites -NPO diet and aspiration precautions -PEG placement today -f\u serial LFT -wneurology team f\u -DVT \ PUD prophylaxis CCM time 34min
[2018-07-15] MEDS: Valproic Acid 250 mg/5 ml UD Cup PO SCH ×3 (09:15→17:15)
[2018-07-15] MEDS: Meropenem IV 1 gm in NS 1 GM/50 ML BAG IVPB SCH ×2 (09:17→21:01)
[2018-07-15] MEDS: Vancomycin 1gm in NS 250ml 1 GM/250 ML BAG IVPB SCH ×2 (09:18→20:54)
--- NOTE | 2018-07-15 11:29 | PN ---
DATE: 07/15/2018 SUBJECTIVE: He is in the intensive care unit. He is on the ventilator. He is trached. He needs a feeding tube. It is a problem because of the medications he is on. He is on Zestril, vancomycin, Transderm-Scop, thiamine, Ritalin, Protonix, Precedex, Nicoderm, Merrem, Lopressor, Levophed, heparin, Effient, Ecotrin, DuoNeb, Depakene and Ativan. Because he is on Effient and we cannot stop it, he is at high risk for bleeding. So, we thought to get a feeding tube placed at this time. GI is not sure if they could do it on Effient. We will see what the surgeon has to say. I will see if Dr. Devonte Dee could possibly do it, I am not sure. It is definitely a high-risk procedure and family has to know that. We will get all the information together and make sure that the family understands the predicament we are under and what could happen, it that is bleeding. Anyway, he is on the ventilator. He is in bed. PHYSICAL EXAMINATION: VITAL SIGNS: He has a 101.1 temp, 86 pulse, 118/67 blood pressure, 30 respiratory rate, 94% O2 sat. HEAD: Atraumatic, normocephalic. HEART: Regular rate. LUNGS: Decreased breath sounds, on the vent. ABDOMEN: Soft, obese. EXTREMITIES: No edema. LABORATORY DATA: He is in very bad trouble. He has got 12,000 white count, 11.5 hemoglobin, 36.6 hematocrit with 396 platelets. Sodium 142, potassium 4.6, BUN 37, creatinine 0.8, GFR is greater than 60, sugar is 110, calcium 9, phosphorous 3.5, magnesium 2.6, total bili is 0.6. AST is 77, ALT is 104, alk phos 64, total protein 7.4. ASSESSMENT AND PLAN: He is still growing staph out of his sputum and trach. He is being seen by numerous physicians: Cardiology; Ear, Nose and Throat; Palliative Care; Neurology; Infectious Disease; interventional radiologist, surgeon, Gastroenterology and he is in very bad way. He might need to be on long-term care for a while. We are trying to tune him up to get there. We are working on a feeding tube, PEG tube. We will do the best we can to take care of him. Ministerio Wan DO
[2018-07-15] MEDS ORDERED: Lidocaine PF 2% (5 ml) Inj (For Cardiac Arrhy) ONE (14:27)
--- NOTE | 2018-07-15 14:31 | CP.PCM.PN ---
<Nic Bae - Last Filed: 07/15/18 14:27> Subjective - Date & Time of Evaluation Date of Evaluation: 07/15/18 Time of Evaluation: 09:20 - Subjective Subjective: Nic Bae D.O. PGY-3, Internal Medicine Resident, Infectious Disease Progress Note 53-year-old male with a past medical history alcohol abuse, obesity, hypertension, and tobacco abuse who [place] [facility] [place]. Patient was found to have an elevated troponin but refused a cardiac catheterization. Patient suffered cardiac arrest while in ultrasound, V. fib, and was subsequently taken to the [facility] with stenting of the RCA and placement of intra-aortic balloon pump. Infectious disease was consulted for sepsis. Patient was seen and examined at bedside. Relatively unchanged. Trached. No much movement. Objective - Vital Signs/Intake and Output Vital Signs (last 24 hours): Temp Pulse Resp BP Pulse Ox 99.1 F 65 21 118/74 100 07/15/18 10:40 07/15/18 10:40 07/15/18 10:40 07/15/18 10:40 07/15/18 10:40 Intake and Output: 07/15/18 07/15/18 06:59 18:59 Intake Total 90 Balance 90 - Medications Medications: Current Medications Albuterol/Ipratropium (Duoneb 3 Mg/0.5 Mg (3 Ml) Ud) 3 ml IH Q2H PRN PRN Reason: Shortness of Breath Last Admin: 07/08/18 16:57 Dose: 3 ml Albuterol/Ipratropium (Duoneb 3 Mg/0.5 Mg (3 Ml) Ud) 3 ml IH [id number] [facility] Last Admin: 07/15/18 13:56 Dose: 3 ml Aspirin (Ecotrin) 81 mg PO DAILY [facility] Last Admin: 07/15/18 09:15 Dose: 81 mg Heparin Sodium (Porcine) (Heparin) 5,000 units SC Q12 [facility]; Protocol Last Admin: 07/15/18 09:19 Dose: 5,000 units Meropenem (Merrem Iv 1 Gm Premix) 1 gm in 50 mls @ 100 mls/hr IVPB Q12 [facility]; Protocol Stop: 07/20/18 22:01 Last Admin: 07/15/18 09:17 Dose: 100 mls/hr Thiamine HCl 300 mg/ Sodium (Chloride) 53 mls @ 106 mls/hr IV DAILY [facility] Last Admin: 07/15/18 10:42 Dose: 106 mls/hr Vancomycin HCl (Vancomycin 1gm) 1 gm in 250 mls @ 167 mls/hr IVPB Q12H [facility]; Protocol Last Admin: 07/15/18 09:18 Dose: 167 mls/hr Lisinopril (Zestril) 5 mg PO DAILY [facility] Last Admin: 07/15/18 09:15 Dose: 5 mg Lorazepam (Ativan) 2 mg IVP Q2H PRN; Protocol PRN Reason: Anxiety Last Admin: 07/13/18 16:12 Dose: 2 mg Methylphenidate HCl (Ritalin) 5 mg PO DAILY [facility] Last Admin: 07/15/18 09:15 Dose: 5 mg Metoprolol Tartrate (Lopressor) 12.5 mg PO BID [facility] Last Admin: 07/15/18 09:15 Dose: 12.5 mg Nicotine (Nicoderm Cq) 1 patch TD DAILY [facility] Last Admin: 07/15/18 09:16 Dose: 1 patch Pantoprazole Sodium (Protonix Inj) 40 mg IVP DAILY [facility] Last Admin: 07/15/18 09:16 Dose: 40 mg Prasugrel (Effient) 10 mg PO DAILY [facility] Last Admin: 07/15/18 09:16 Dose: 10 mg Scopolamine (Transderm-Scop) 1 patch TD Q3D [facility] Last Admin: 07/14/18 22:00 Dose: 1 patch Valproate Sodium (Depakene Oral Soln) 250 mg PO BID [facility] Last Admin: 07/15/18 09:15 Dose: 250 mg - Labs Labs: 07/15/18 05:30 07/15/18 05:30 PT 12.7 SECONDS (9.4-12.5) H 07/08/18 11:10 INR 1.12 07/08/18 11:10 APTT 27.6 Seconds (26.9-38.3) 07/08/18 11:10 - Constitutional Appears: No Acute Distress, trached - Head Exam Head Exam: NORMOCEPHALIC - Eye Exam Eye Exam: absent: Scleral icterus - ENT Exam ENT Exam: Mucous Membranes Moist - Neck Exam Neck exam: Positive for: Normal Inspection - Respiratory Exam Respiratory Exam: Clear to Auscultation Bilateral. absent: Rales, Rhonchi, Wheezes - Cardiovascular Exam Cardiovascular Exam: RRR, +S1, +S2. absent: Gallop, Rubs - GI/Abdominal Exam GI & Abdominal Exam: Normal Bowel Sounds, Soft. absent: Distended, Tenderness - Extremities Exam Extremities exam: Negative for: calf tenderness, pedal edema - Neurological Exam Additional comments: appears awake but is not alert - Skin Skin Exam: Dry, Warm Assessment and Plan - Assessment and Plan (Free Text) Assessment: 53-year-old male with a past medical history alcohol abuse, obesity, hypertension, and tobacco abuse who [place] [facility] [place] of [place] sync[place] episode. Patient was found to have an elevated troponin but refused a cardiac catheterization. Patient suffered cardiac arrest while in ultrasound, V. fib, and was subsequently taken to the [facility] with stenting of the RCA and placement of intra-aortic balloon pump. Infectious disease was consulted for sepsis. Plan: Sepsis likely 2/2 HAP with Klebsiella in trach asp Sepsis from aspiration pneumonia with MSSA Ventilator dependent respiratory failure Anoxic brain injury Cardiac arrest CAD status post PCI Hypertension Tobacco abuse Continued to have fevers overnight and this morning as well as leukocytosis Repeat BCx negative 2/2 day 3 Will repeat BCx again Continue meropenem day 3 Re-started vancomycin, fevers have not continued today GI and ICU notes reviewed and appreciated Prognosis is guarded We will follow with you Patient was seen and examined and case to be discussed with attending physician. Thank you for the pleasure of participating in the care of this interesting patient <Colton Michelle - Last Filed: 07/15/18 17:39> Objective - Vital Signs/Intake and Output Vital Signs (last 24 hours): Temp Pulse Resp BP Pulse Ox 99.1 F 82 21 118/74 100 07/15/18 10:40 07/15/18 14:00 07/15/18 10:40 07/15/18 10:40 07/15/18 10:40 Intake and Output: 07/15/18 07/15/18 06:59 18:59 Intake Total 90 Balance 90 - Medications Medications: Current Medications Albuterol/Ipratropium (Duoneb 3 Mg/0.5 Mg (3 Ml) Ud) 3 ml IH Q2H PRN PRN Reason: Shortness of Breath Last Admin: 07/08/18 16:57 Dose: 3 ml Albuterol/Ipratropium (Duoneb 3 Mg/0.5 Mg (3 Ml) Ud) 3 ml IH [id number] [facility] Last Admin: 07/15/18 13:56 Dose: 3 ml Aspirin (Ecotrin) 81 mg PO DAILY [facility] Last Admin: 07/15/18 09:15 Dose: 81 mg Heparin Sodium (Porcine) (Heparin) 5,000 units SC Q12 [facility]; Protocol Last Admin: 07/15/18 09:19 Dose: 5,000 units Meropenem (Merrem Iv 1 Gm Premix) 1 gm in 50 mls @ 100 mls/hr IVPB Q12 [facility]; Protocol Stop: 07/20/18 22:01 Last Admin: 07/15/18 09:17 Dose: 100 mls/hr Thiamine HCl 300 mg/ Sodium (Chloride) 53 mls @ 106 mls/hr IV DAILY [facility] Last Admin: 07/15/18 10:42 Dose: 106 mls/hr Vancomycin HCl (Vancomycin 1gm) 1 gm in 250 mls @ 167 mls/hr IVPB Q12H [facility]; Protocol Last Admin: 07/15/18 09:18 Dose: 167 mls/hr Dextrose/Sodium Chloride (Dextrose 5%/0.45% Ns 1000 Ml) 1,000 mls @ 75 mls/hr IV .[id number] [facility] Lisinopril (Zestril) 5 mg PO DAILY [facility] Last Admin: 07/15/18 09:15 Dose: 5 mg Lorazepam (Ativan) 2 mg IVP Q2H PRN; Protocol PRN Reason: Anxiety Last Admin: 07/13/18 16:12 Dose: 2 mg Methylphenidate HCl (Ritalin) 5 mg PO DAILY [facility] Last Admin: 07/15/18 09:15 Dose: 5 mg Metoprolol Tartrate (Lopressor) 12.5 mg PO BID [facility] Last Admin: 07/15/18 17:16 Dose: Not Given Nicotine (Nicoderm Cq) 1 patch TD DAILY [facility] Last Admin: 07/15/18 09:16 Dose: 1 patch Pantoprazole Sodium (Protonix Inj) 40 mg IVP DAILY [facility] Last Admin: 07/15/18 09:16 Dose: 40 mg Prasugrel (Effient) 10 mg PO DAILY [facility] Last Admin: 07/15/18 09:16 Dose: 10 mg Scopolamine (Transderm-Scop) 1 patch TD Q3D [facility] Last Admin: 07/14/18 22:00 Dose: 1 patch Valproate Sodium (Depakene Oral Soln) 250 mg PO BID [facility] Last Admin: 07/15/18 17:15 Dose: Not Given - Labs Labs: 07/15/18 05:30 07/15/18 05:30 PT 12.7 SECONDS (9.4-12.5) H 07/08/18 11:10 INR 1.12 07/08/18 11:10 APTT 27.6 Seconds (26.9-38.3) 07/08/18 11:10 Attending/Attestation - Attestation I have personally seen and examined this patient.: Yes I have fully participated in the care of the patient.: Yes I have reviewed all pertinent clinical information, including history, physical exam and plan: Yes
--- NOTE | 2018-07-15 15:59 | VASCULAR ---
Date of service: 07/15/2018 PROCEDURE: Fluoroscopically guided gastrostomy tube placement HISTORY: Cardiac arrest. Anoxic brain injury. Needs gastrostomy tube COMPARISON: TECHNIQUE: The relative risks and indications of the procedure were explained to the patient's mother and consent obtained. The patient was placed supine on the arteriogram table and the stomach insufflated with air through the nasogastric tube. The anterior abdomen was prepped and draped usual sterile fashion. Monitoring was provided by a nurse throughout the procedure. 1 percent xylocaine was used to anesthetize skin soft tissues. A 19 gauge needle was advanced into the body of the stomach under fluoroscopy. Air was aspirated and a 0.035 support wire advanced to the antrum of the stomach. Sequential dilatation was performed with subsequent placement of a 14 [place] pigtail gastrostomy tube in the antrum of the stomach. Position was confirmed with injection of contrast. The tube was flushed and secured. The patient tolerated the procedure well. FINDINGS: IMPRESSION: Fluoroscopically placed gastrostomy tube as described above
[2018-07-15] MEDS ORDERED: Metoprolol 1 mg/ml Inj IVP ONE (17:28)
[2018-07-15] MEDS: Dextrose 5%/0.45% NS 1,000 ML IV SCH (17:58)
[2018-07-16] MEDS: Albuterol-Ipratrop 3 mg / 0.5 (3 ml) UD IH SCH ×4 (01:06→20:08)
[2018-07-16 04:28] LABS: BASO # 0.02 K/mm3 (0.0-2.0); BASO % 0.3 % (0.0-3.0); EOS # 0.3 (0.0-0.7); EOS % 3.4 % (1.5-5.0); HEMOGLOBIN 11.4 g/dL (14.0-18.0); LYMPH # 1.5 (1.2-3.4); LYMPH % 19.4 % (22.0-35.0); MEAN CELL VOLUME 95.1 fl (80.0-105.0); MEAN CORPUSCULAR HEMOGLOBIN 30.9 pg (25.0-35.0); MEAN CORPUSCULAR HGB CONC 32.5 g/dl (31.0-37.0); MEAN PLATELET VOLUME 9.6 fl (7.0-11.0); MONO # 0.6 (0.1-0.6); MONO % 7.7 % (1.0-6.0); RBC 3.69 10^6/uL (3.5-6.1); RED CELL DISTRIBUTION WIDTH 13.8 % (11.5-14.5); WHITE BLOOD COUNT 7.9 10^3/uL (4.5-11.0)
[2018-07-16 04:36] LABS: ALB/GLOB RATIO 0.9 (1.1-1.8); ALBUMIN 3.5 g/dL (3.0-4.8); ALT/SGPT 86 U/L (7-56); AST/SGOT 77 U/L (17-59); BLOOD UREA NITROGEN 31 mg/dL (7-21); GFR NON-AFRICAN AMERICAN > 60
[2018-07-16 04:47] LABS: TROPONIN I 0.02 ng/mL
[2018-07-16 05:40] LABS: ARTERIAL BLOOD GAS HCO3 24.6 mmol/L (21-28); ARTERIAL BLOOD GAS HEMOGLOBIN 11.1 g/dL (11.7-17.4); ARTERIAL BLOOD GAS O2 CAPACITY 15.7 mL/dl (16-24); ARTERIAL BLOOD GAS O2 CONTENT 15.7 ML/dl (15-23); ARTERIAL BLOOD GAS O2 SAT 99.8 % (95-98); ARTERIAL BLOOD GAS PCO2 38 mm/Hg (35-45); ARTERIAL BLOOD GAS PH 7.42 (7.35-7.45); ARTERIAL BLOOD GAS TCO2 25.8 mmol.L (22-28)
[2018-07-16] MEDS: Vancomycin 1gm in NS 250ml 1 GM/250 ML BAG IVPB SCH ×2 (07:55→21:04)
[2018-07-16] MEDS: Meropenem IV 1 gm in NS 1 GM/50 ML BAG IVPB SCH ×2 (09:48→21:04)
[2018-07-16] MEDS: Valproic Acid 250 mg/5 ml UD Cup PO SCH ×2 (09:57→18:00)
--- NOTE | 2018-07-16 10:59 | CP.CCUPN ---
<KavinMikenasim Gamboa - Last Filed: 07/16/18 11:33> CCU Subjective - Physician Review Events Since Last Encounter (Free Text): 07/16/18 10:57 no acute events overnight Subjective (Free Text): 07/07/18 11:21 pt seen and examined this morning, pt intubated at this time 07/11/18 08:06 pt seen and examined, pt unable to answer or follow commands, eyes are open but no tracking, trach collar 07/13/18 14:09 Pt seen and examined this morning. Pt writhing in bed with purposeless movements 07/16/18 10:59 pt seen and examined, NAD at this time CCU Objective - Vital Signs / Intake & Output Vital Signs (Last 4 hours): Vital Signs Temp Pulse Resp BP Pulse Ox 07/16/18 09:55 53 L 103/56 L 07/16/18 09:49 56 L 103/56 L 07/16/18 07:40 19 95 07/16/18 07:20 98.8 F 69 132/94 H 97 07/16/18 07:00 98.8 F 67 135/83 99 07/16/18 06:57 98.8 F Intake and Output (Last 8hrs): Intake & Output 07/15/18 07/16/18 07/16/18 22:59 06:59 14:59 Intake Total 800 850 Output Total 750 550 Balance 50 300 Intake: IV 300 850 Right Forearm 300 Right Upper arm 850 Tube Feeding 500 Output: Urine 750 550 Condom 550 Urethral ([place]) 750 - Physical Exam Head: Positive for: Atraumatic, Normocephalic Pupils: Positive for: Sluggish Extroacular Muscles: Positive for: EOMI Conjunctiva: Positive for: Normal Mouth: Positive for: Moist Mucous Membranes Neck: Positive for: Normal Range of Motion. Negative for: JVD, Lymphadenopathy Respiratory/Chest: Positive for: Clear to Auscultation. Negative for: Wheezes, Rhonchi Cardiovascular: Positive for: Regular Rate and Rhythm, Normal S1, S2. Negative for: Murmurs, Rub, Gallop Abdomen: Positive for: Normal Bowel Sounds. Negative for: Distention, Mass/Organomegaly Back: Positive for: Normal Inspection Upper Extremity: Positive for: Normal Inspection, NORMAL PULSES. Negative for: Cyanosis, Edema Lower Extremity: Positive for: Normal Inspection, NORMAL PULSES. Negative for: Edema, Cyanosis, Swelling, Erythema Neurological: Positive for: Other (GCS =4 [id number]) Skin: Positive for: Warm, Dry, Normal Color. Negative for: Rashes Psychiatric: Positive for: Other (trach collar) - Medications Active Medications: Active Medications Generic Name Dose Route Start Last Admin Trade Name Freq PRN Reason Stop Dose Admin Albuterol/Ipratropium 3 ml 07/01/18 17:28 07/08/18 16:57 Duoneb 3 Mg/0.5 Mg (3 Ml) Ud IH 3 ml Q2H PRN Administration Shortness of Breath Albuterol/Ipratropium 3 ml 07/04/18 14:00 07/16/18 07:22 Duoneb 3 Mg/0.5 Mg (3 Ml) Ud IH 3 ml [id number] XU Administration Aspirin 81 mg 07/02/18 10:30 07/16/18 09:57 Ecotrin PO 81 mg DAILY XU Administration Heparin Sodium (Porcine) 5,000 units 07/14/18 11:15 07/16/18 09:56 Heparin SC 5,000 units Q12 XU Administration Protocol Meropenem 1 gm in 50 mls @ 100 mls/hr 07/13/18 22:00 07/16/18 09:48 Merrem Iv 1 Gm Premix IVPB 07/20/18 22:01 100 mls/hr Q12 XU Administration Protocol Thiamine HCl 300 mg/ Sodium 53 mls @ 106 mls/hr 07/14/18 15:30 07/16/18 09:53 Chloride IV 106 mls/hr DAILY XU Administration Vancomycin HCl 1 gm in 250 mls @ 167 mls/hr 07/15/18 08:15 07/16/18 07:55 Vancomycin 1gm IVPB 167 mls/hr Q12H XU Administration Protocol Lisinopril 5 mg 07/14/18 13:02 07/16/18 09:49 Zestril PO 5 mg DAILY XU Administration Lorazepam 2 mg 07/01/18 14:13 07/13/18 16:12 Ativan IVP 2 mg Q2H PRN Administration Anxiety Protocol Methylphenidate HCl 5 mg 07/14/18 14:15 07/16/18 09:49 Ritalin PO 5 mg DAILY XU Administration Pantoprazole Sodium 40 mg 07/14/18 10:00 07/16/18 09:54 Protonix Inj IVP 40 mg DAILY XU Administration Prasugrel 10 mg 07/04/18 10:00 07/16/18 09:56 Effient PO 10 mg DAILY XU Administration Scopolamine 1 patch 07/11/18 21:30 07/14/18 22:00 Transderm-Scop TD 1 patch Q3D XU Administration Valproate Sodium 250 mg 07/14/18 18:00 07/16/18 09:57 Depakene Oral Soln PO 250 mg BID XU Administration - Patient Studies Lab Studies: Microbiology Studies 07/11/18 19:00 Blood Culture - Preliminary Blood NO GROWTH AFTER 4 DAYS 07/11/18 18:45 Blood Culture - Preliminary Blood NO GROWTH AFTER 4 DAYS Lab Studies 07/16/18 07/16/18 07/16/18 Range/Units 05:28 05:28 04:18 WBC (4.5-11.0) 10^3/uL RBC (3.5-6.1) 10^6/uL Hgb (14.0-18.0) g/dL Hct (42.0-52.0) % MCV (80.0-105.0) fl MCH (25.0-35.0) pg MCHC (31.0-37.0) g/dl RDW (11.5-14.5) % Plt Count (120.0-450.0) 10^3/uL MPV (7.0-11.0) fl Neut % (Auto) (50.0-68.0) % Lymph % (Auto) (22.0-35.0) % [place] % (Auto) (1.0-6.0) % Eos % (Auto) (1.5-5.0) % Baso % (Auto) (0.0-3.0) % Lymph # (Auto) (1.2-3.4) [place] # (Auto) (0.1-0.6) Eos # (Auto) (0.0-0.7) Baso # (Auto) (0.0-2.0) K/mm3 Absolute Neuts (auto) (1.4-6.5) pCO2 38 (35-45) mm/Hg pO2 210.0 H (80-100) mm/Hg HCO3 24.6 (21-28) mmol/L ABG pH 7.42 (7.35-7.45) ABG Total CO2 25.8 (22-28) mmol.L ABG O2 Saturation 99.8 H (95-98) % ABG O2 Content 15.7 (15-23) ML/dl ABG Base Excess 0.2 (-2.0-3.0) mmol/L ABG Hemoglobin 11.1 L (11.7-17.4) g/dL ABG Carboxyhemoglobin 1.6 H (0.5-1.5) % POC ABG HHb (Measured) 0.2 (0-5) % ABG Methemoglobin 0.9 (0.0-3.0) % ABG O2 Capacity 15.7 L (16-24) mL/dl Hgb O2 Saturation 97.3 (95.0-98.0) % FiO2 60.0 % Sodium 138 (132-148) mmol/L Potassium 4.4 (3.6-5.0) mmol/L Chloride 104 (98-107) mmol/L Carbon Dioxide 27 (21-33) mmol/L Anion Gap 11 (10-20) BUN 31 H (7-21) mg/dL Creatinine 0.8 (0.8-1.5) mg/dl Est GFR ( Amer) > 60 Est GFR (Non-Af Amer) > 60 POC Glucose (mg/dL) 117 H (65-110) mg/dL Random Glucose 125 H (70-110) mg/dL Calcium 9.0 (8.4-10.5) mg/dL Phosphorus 3.7 (2.5-4.5) mg/dL Magnesium 2.3 H (1.7-2.2) mg/dL Total Bilirubin 0.6 (0.2-1.3) mg/dL AST 77 H (17-59) U/L ALT 86 H (7-56) U/L Alkaline Phosphatase 65 (38-126) U/L Troponin I 0.02 D ng/mL Total Protein 7.4 (5.8-8.3) g/dL Albumin 3.5 (3.0-4.8) g/dL Globulin 3.9 gm/dL Albumin/Globulin Ratio 0.9 L (1.1-1.8) 07/16/18 07/15/18 07/15/18 Range/Units 04:18 21:00 15:50 WBC 7.9 D (4.5-11.0) 10^3/uL RBC 3.69 (3.5-6.1) 10^6/uL Hgb 11.4 L (14.0-18.0) g/dL Hct 35.1 L (42.0-52.0) % MCV 95.1 (80.0-105.0) fl MCH 30.9 (25.0-35.0) pg MCHC 32.5 (31.0-37.0) g/dl RDW 13.8 (11.5-14.5) % Plt Count 383 (120.0-450.0) 10^3/uL MPV 9.6 (7.0-11.0) fl Neut % (Auto) 69.2 H (50.0-68.0) % Lymph % (Auto) 19.4 L (22.0-35.0) % [place] % (Auto) 7.7 H (1.0-6.0) % Eos % (Auto) 3.4 (1.5-5.0) % Baso % (Auto) 0.3 (0.0-3.0) % Lymph # (Auto) 1.5 (1.2-3.4) [place] # (Auto) 0.6 (0.1-0.6) Eos # (Auto) 0.3 (0.0-0.7) Baso # (Auto) 0.02 (0.0-2.0) K/mm3 Absolute Neuts (auto) 5.45 (1.4-6.5) pCO2 (35-45) mm/Hg pO2 (80-100) mm/Hg HCO3 (21-28) mmol/L ABG pH (7.35-7.45) ABG Total CO2 (22-28) mmol.L ABG O2 Saturation (95-98) % ABG O2 Content (15-23) ML/dl ABG Base Excess (-2.0-3.0) mmol/L ABG Hemoglobin (11.7-17.4) g/dL ABG Carboxyhemoglobin (0.5-1.5) % POC ABG HHb (Measured) (0-5) % ABG Methemoglobin (0.0-3.0) % ABG O2 Capacity (16-24) mL/dl Hgb O2 Saturation (95.0-98.0) % FiO2 % Sodium (132-148) mmol/L Potassium (3.6-5.0) mmol/L Chloride (98-107) mmol/L Carbon Dioxide (21-33) mmol/L Anion Gap (10-20) BUN (7-21) mg/dL Creatinine (0.8-1.5) mg/dl Est GFR ( Amer) Est GFR (Non-Af Amer) POC Glucose (mg/dL) 99 88 (65-110) mg/dL Random Glucose (70-110) mg/dL Calcium (8.4-10.5) mg/dL Phosphorus (2.5-4.5) mg/dL Magnesium (1.7-2.2) mg/dL Total Bilirubin (0.2-1.3) mg/dL AST (17-59) U/L ALT (7-56) U/L Alkaline Phosphatase (38-126) U/L Troponin I ng/mL Total Protein (5.8-8.3) g/dL Albumin (3.0-4.8) g/dL Globulin gm/dL Albumin/Globulin Ratio (1.1-1.8) 07/15/18 Range/Units 11:24 WBC (4.5-11.0) 10^3/uL RBC (3.5-6.1) 10^6/uL Hgb (14.0-18.0) g/dL Hct (42.0-52.0) % MCV (80.0-105.0) fl MCH (25.0-35.0) pg MCHC (31.0-37.0) g/dl RDW (11.5-14.5) % Plt Count (120.0-450.0) 10^3/uL MPV (7.0-11.0) fl Neut % (Auto) (50.0-68.0) % Lymph % (Auto) (22.0-35.0) % [place] % (Auto) (1.0-6.0) % Eos % (Auto) (1.5-5.0) % Baso % (Auto) (0.0-3.0) % Lymph # (Auto) (1.2-3.4) [place] # (Auto) (0.1-0.6) Eos # (Auto) (0.0-0.7) Baso # (Auto) (0.0-2.0) K/mm3 Absolute Neuts (auto) (1.4-6.5) pCO2 (35-45) mm/Hg pO2 (80-100) mm/Hg HCO3 (21-28) mmol/L ABG pH (7.35-7.45) ABG Total CO2 (22-28) mmol.L ABG O2 Saturation (95-98) % ABG O2 Content (15-23) ML/dl ABG Base Excess (-2.0-3.0) mmol/L ABG Hemoglobin (11.7-17.4) g/dL ABG Carboxyhemoglobin (0.5-1.5) % POC ABG HHb (Measured) (0-5) % ABG Methemoglobin (0.0-3.0) % ABG O2 Capacity (16-24) mL/dl Hgb O2 Saturation (95.0-98.0) % FiO2 % Sodium (132-148) mmol/L Potassium (3.6-5.0) mmol/L Chloride (98-107) mmol/L Carbon Dioxide (21-33) mmol/L Anion Gap (10-20) BUN (7-21) mg/dL Creatinine (0.8-1.5) mg/dl Est GFR ( Amer) Est GFR (Non-Af Amer) POC Glucose (mg/dL) 126 H (65-110) mg/dL Random Glucose (70-110) mg/dL Calcium (8.4-10.5) mg/dL Phosphorus (2.5-4.5) mg/dL Magnesium (1.7-2.2) mg/dL Total Bilirubin (0.2-1.3) mg/dL AST (17-59) U/L ALT (7-56) U/L Alkaline Phosphatase (38-126) U/L Troponin I ng/mL Total Protein (5.8-8.3) g/dL Albumin (3.0-4.8) g/dL Globulin gm/dL Albumin/Globulin Ratio (1.1-1.8) Laboratory Results - last 24 hr 07/15/18 07/15/18 07/15/18 11:24 15:50 21:00 WBC RBC Hgb Hct MCV MCH MCHC RDW Plt Count MPV Neut % (Auto) Lymph % (Auto) [place] % (Auto) Eos % (Auto) Baso % (Auto) Lymph # (Auto) [place] # (Auto) Eos # (Auto) Baso # (Auto) Absolute Neuts (auto) pCO2 pO2 HCO3 ABG pH ABG Total CO2 ABG O2 Saturation ABG O2 Content ABG Base Excess ABG Hemoglobin ABG Carboxyhemoglobin POC ABG HHb (Measured) ABG Methemoglobin ABG O2 Capacity Hgb O2 Saturation FiO2 Sodium Potassium Chloride Carbon Dioxide Anion Gap BUN Creatinine Est GFR ( Amer) Est GFR (Non-Af Amer) POC Glucose (mg/dL) 126 H 88 99 Random Glucose Calcium Phosphorus Magnesium Total Bilirubin AST ALT Alkaline Phosphatase Troponin I Total Protein Albumin Globulin Albumin/Globulin Ratio 07/16/18 07/16/18 07/16/18 04:18 04:18 05:28 WBC 7.9 D RBC 3.69 Hgb 11.4 L Hct 35.1 L MCV 95.1 MCH 30.9 MCHC 32.5 RDW 13.8 Plt Count 383 MPV 9.6 Neut % (Auto) 69.2 H Lymph % (Auto) 19.4 L [place] % (Auto) 7.7 H Eos % (Auto) 3.4 Baso % (Auto) 0.3 Lymph # (Auto) 1.5 [place] # (Auto) 0.6 Eos # (Auto) 0.3 Baso # (Auto) 0.02 Absolute Neuts (auto) 5.45 pCO2 38 pO2 210.0 H HCO3 24.6 ABG pH 7.42 ABG Total CO2 25.8 ABG O2 Saturation 99.8 H ABG O2 Content 15.7 ABG Base Excess 0.2 ABG Hemoglobin 11.1 L ABG Carboxyhemoglobin 1.6 H POC ABG HHb (Measured) 0.2 ABG Methemoglobin 0.9 ABG O2 Capacity 15.7 L Hgb O2 Saturation 97.3 FiO2 60.0 Sodium 138 Potassium 4.4 Chloride 104 Carbon Dioxide 27 Anion Gap 11 BUN 31 H Creatinine 0.8 Est GFR ( Amer) > 60 Est GFR (Non-Af Amer) > 60 POC Glucose (mg/dL) Random Glucose 125 H Calcium 9.0 Phosphorus 3.7 Magnesium 2.3 H Total Bilirubin 0.6 AST 77 H ALT 86 H Alkaline Phosphatase 65 Troponin I 0.02 D Total Protein 7.4 Albumin 3.5 Globulin 3.9 Albumin/Globulin Ratio 0.9 L 07/16/18 05:28 WBC RBC Hgb Hct MCV MCH MCHC RDW Plt Count MPV Neut % (Auto) Lymph % (Auto) [place] % (Auto) Eos % (Auto) Baso % (Auto) Lymph # (Auto) [place] # (Auto) Eos # (Auto) Baso # (Auto) Absolute Neuts (auto) pCO2 pO2 HCO3 ABG pH ABG Total CO2 ABG O2 Saturation ABG O2 Content ABG Base Excess ABG Hemoglobin ABG Carboxyhemoglobin POC ABG HHb (Measured) ABG Methemoglobin ABG O2 Capacity Hgb O2 Saturation FiO2 Sodium Potassium Chloride Carbon Dioxide Anion Gap BUN Creatinine Est GFR ( Amer) Est GFR (Non-Af Amer) POC Glucose (mg/dL) 117 H Random Glucose Calcium Phosphorus Magnesium Total Bilirubin AST ALT Alkaline Phosphatase Troponin I Total Protein Albumin Globulin Albumin/Globulin Ratio Radiology Impressions: Radiology Impressions Interventional Vascular Procedure 07/15/18 12:16 IMPRESSION: Fluoroscopically placed gastrostomy tube as described above EKG/Cardiology Studies: Cardiology / EKG Studies 07/16/18 03:57 EKG [ELECTROCARDIOGRAM] Stat Comment: Reason For Exam: EKG changes Fingerstick Blood Sugar Results: 106 Assessment/Plan - Assessment and Plan (Free Text) Assessment: Pt is a 53 yo male who was admitted to ICU s/p VFib cardiac arrest with subsequent PCI with RCA stent placed. He sustained hypoxic cerebral injury with diffuse cerebral edema requiring intubation. Now on trach ventilation and off sedation Plan: Neuro - hypoxic brain injury in the setting of VFib cardiac arrest with subsequent multiple defibrillation then PCI and RCA ANALISA placement - hypothermic protocol not initiated on admission to ICU due to epistaxis and hemoptysis at that time - continue ativan prn - continue thiamine 300 mg IV daily for neurocognitive activation as per neuro - ritalin 5 mg daily as per neuro recs - valproic acid 250 mg po bid for purposeless movement - CT head: no ICH, diffuse cerebral edema - Video EEG: no seizure activity. Severe slowing/attenuation - neuro following, Dr King Cardio - cardiac arrest due to VFib s/p PCI with RCA ANALISA - continue asa, effient - lisinopril 5 mg daily - statins held due to elevated LFT - ECHO: LVEF 45% LVH with hypokinesis, mild pulm HTN - cardiology following, Dr Jorge Mcfarlane - COPD, chronic smoker, duonebs ux and prn - ventilator dependent respiratory failure. s/p tracheostomy (07/08) - tach collar - maintain O2>92% - stop IVF GI - transaminitis likely due to shock liver in the setting of cardiac arrest. trending down - patient alcoholic, obese - hepatitis panel negative - U/S abdomen: fibro/fatty liver infiltration - G tube placed, start g tube feeding - GI ppx Protonix q12 - PEG placement by IR. 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 patient to LTACH facility in [place] Pt seen, examined, assessment and plan discussed with Dr Pb Vale PGY1 - Date & Time Date: 07/16/18 Time: 07:45 <Brandon Ambriz - Last Filed: 07/16/18 12:11> CCU Objective - Vital Signs / Intake & Output Vital Signs (Last 4 hours): Vital Signs Pulse BP 07/16/18 09:55 53 L 103/56 L 07/16/18 09:49 56 L 103/56 L Intake and Output (Last 8hrs): Intake & Output 07/15/18 07/16/18 07/16/18 22:59 06:59 14:59 Intake Total 800 850 Output Total 750 550 Balance 50 300 Intake: IV 300 850 Right Forearm 300 Right Upper arm 850 Tube Feeding 500 Output: Urine 750 550 Condom 550 Urethral ([place]) 750 - Medications Active Medications: Active Medications Generic Name Dose Route Start Last Admin Trade Name Freq PRN Reason Stop Dose Admin Albuterol/Ipratropium 3 ml 07/01/18 17:28 07/08/18 16:57 Duoneb 3 Mg/0.5 Mg (3 Ml) Ud IH 3 ml Q2H PRN Administration Shortness of Breath Albuterol/Ipratropium 3 ml 07/04/18 14:00 07/16/18 07:22 Duoneb 3 Mg/0.5 Mg (3 Ml) Ud IH 3 ml [id number] XU Administration Aspirin 81 mg 07/02/18 10:30 07/16/18 09:57 Ecotrin PO 81 mg DAILY XU Administration Heparin Sodium (Porcine) 5,000 units 07/14/18 11:15 07/16/18 09:56 Heparin SC 5,000 units Q12 XU Administration Protocol Meropenem 1 gm in 50 mls @ 100 mls/hr 07/13/18 22:00 07/16/18 09:48 Merrem Iv 1 Gm Premix IVPB 07/20/18 22:01 100 mls/hr Q12 XU Administration Protocol Thiamine HCl 300 mg/ Sodium 53 mls @ 106 mls/hr 07/14/18 15:30 07/16/18 09:53 Chloride IV 106 mls/hr DAILY XU Administration Vancomycin HCl 1 gm in 250 mls @ 167 mls/hr 07/15/18 08:15 07/16/18 07:55 Vancomycin 1gm IVPB 167 mls/hr Q12H XU Administration Protocol Lisinopril 5 mg 07/14/18 13:02 07/16/18 09:49 Zestril PO 5 mg DAILY XU Administration Lorazepam 2 mg 07/01/18 14:13 07/13/18 16:12 Ativan IVP 2 mg Q2H PRN Administration Anxiety Protocol Methylphenidate HCl 5 mg 07/14/18 14:15 07/16/18 09:49 Ritalin PO 5 mg DAILY XU Administration Pantoprazole Sodium 40 mg 07/14/18 10:00 07/16/18 09:54 Protonix Inj IVP 40 mg DAILY XU Administration Prasugrel 10 mg 07/04/18 10:00 07/16/18 09:56 Effient PO 10 mg DAILY XU Administration Scopolamine 1 patch 07/11/18 21:30 07/14/18 22:00 Transderm-Scop TD 1 patch Q3D XU Administration Valproate Sodium 250 mg 07/14/18 18:00 07/16/18 09:57 Depakene Oral Soln PO 250 mg BID XU Administration - Patient Studies Lab Studies: Microbiology Studies 07/11/18 19:00 Blood Culture - Preliminary Blood NO GROWTH AFTER 4 DAYS 07/11/18 18:45 Blood Culture - Preliminary Blood NO GROWTH AFTER 4 DAYS Lab Studies 07/16/18 07/16/18 07/16/18 Range/Units 05:28 05:28 04:18 WBC (4.5-11.0) 10^3/uL RBC (3.5-6.1) 10^6/uL Hgb (14.0-18.0) g/dL Hct (42.0-52.0) % MCV (80.0-105.0) fl MCH (25.0-35.0) pg MCHC (31.0-37.0) g/dl RDW (11.5-14.5) % Plt Count (120.0-450.0) 10^3/uL MPV (7.0-11.0) fl Neut % (Auto) (50.0-68.0) % Lymph % (Auto) (22.0-35.0) % [place] % (Auto) (1.0-6.0) % Eos % (Auto) (1.5-5.0) % Baso % (Auto) (0.0-3.0) % Lymph # (Auto) (1.2-3.4) [place] # (Auto) (0.1-0.6) Eos # (Auto) (0.0-0.7) Baso # (Auto) (0.0-2.0) K/mm3 Absolute Neuts (auto) (1.4-6.5) pCO2 38 (35-45) mm/Hg pO2 210.0 H (80-100) mm/Hg HCO3 24.6 (21-28) mmol/L ABG pH 7.42 (7.35-7.45) ABG Total CO2 25.8 (22-28) mmol.L ABG O2 Saturation 99.8 H (95-98) % ABG O2 Content 15.7 (15-23) ML/dl ABG Base Excess 0.2 (-2.0-3.0) mmol/L ABG Hemoglobin 11.1 L (11.7-17.4) g/dL ABG Carboxyhemoglobin 1.6 H (0.5-1.5) % POC ABG HHb (Measured) 0.2 (0-5) % ABG Methemoglobin 0.9 (0.0-3.0) % ABG O2 Capacity 15.7 L (16-24) mL/dl Hgb O2 Saturation 97.3 (95.0-98.0) % FiO2 60.0 % Sodium 138 (132-148) mmol/L Potassium 4.4 (3.6-5.0) mmol/L Chloride 104 (98-107) mmol/L Carbon Dioxide 27 (21-33) mmol/L Anion Gap 11 (10-20) BUN 31 H (7-21) mg/dL Creatinine 0.8 (0.8-1.5) mg/dl Est GFR ( Amer) > 60 Est GFR (Non-Af Amer) > 60 POC Glucose (mg/dL) 117 H (65-110) mg/dL Random Glucose 125 H (70-110) mg/dL Calcium 9.0 (8.4-10.5) mg/dL Phosphorus 3.7 (2.5-4.5) mg/dL Magnesium 2.3 H (1.7-2.2) mg/dL Total Bilirubin 0.6 (0.2-1.3) mg/dL AST 77 H (17-59) U/L ALT 86 H (7-56) U/L Alkaline Phosphatase 65 (38-126) U/L Troponin I 0.02 D ng/mL Total Protein 7.4 (5.8-8.3) g/dL Albumin 3.5 (3.0-4.8) g/dL Globulin 3.9 gm/dL Albumin/Globulin Ratio 0.9 L (1.1-1.8) 07/16/18 07/15/18 07/15/18 Range/Units 04:18 21:00 15:50 WBC 7.9 D (4.5-11.0) 10^3/uL RBC 3.69 (3.5-6.1) 10^6/uL Hgb 11.4 L (14.0-18.0) g/dL Hct 35.1 L (42.0-52.0) % MCV 95.1 (80.0-105.0) fl MCH 30.9 (25.0-35.0) pg MCHC 32.5 (31.0-37.0) g/dl RDW 13.8 (11.5-14.5) % Plt Count 383 (120.0-450.0) 10^3/uL MPV 9.6 (7.0-11.0) fl Neut % (Auto) 69.2 H (50.0-68.0) % Lymph % (Auto) 19.4 L (22.0-35.0) % [place] % (Auto) 7.7 H (1.0-6.0) % Eos % (Auto) 3.4 (1.5-5.0) % Baso % (Auto) 0.3 (0.0-3.0) % Lymph # (Auto) 1.5 (1.2-3.4) [place] # (Auto) 0.6 (0.1-0.6) Eos # (Auto) 0.3 (0.0-0.7) Baso # (Auto) 0.02 (0.0-2.0) K/mm3 Absolute Neuts (auto) 5.45 (1.4-6.5) pCO2 (35-45) mm/Hg pO2 (80-100) mm/Hg HCO3 (21-28) mmol/L ABG pH (7.35-7.45) ABG Total CO2 (22-28) mmol.L ABG O2 Saturation (95-98) % ABG O2 Content (15-23) ML/dl ABG Base Excess (-2.0-3.0) mmol/L ABG Hemoglobin (11.7-17.4) g/dL ABG Carboxyhemoglobin (0.5-1.5) % POC ABG HHb (Measured) (0-5) % ABG Methemoglobin (0.0-3.0) % ABG O2 Capacity (16-24) mL/dl Hgb O2 Saturation (95.0-98.0) % FiO2 % Sodium (132-148) mmol/L Potassium (3.6-5.0) mmol/L Chloride (98-107) mmol/L Carbon Dioxide (21-33) mmol/L Anion Gap (10-20) BUN (7-21) mg/dL Creatinine (0.8-1.5) mg/dl Est GFR ( Amer) Est GFR (Non-Af Amer) POC Glucose (mg/dL) 99 88 (65-110) mg/dL Random Glucose (70-110) mg/dL Calcium (8.4-10.5) mg/dL Phosphorus (2.5-4.5) mg/dL Magnesium (1.7-2.2) mg/dL Total Bilirubin (0.2-1.3) mg/dL AST (17-59) U/L ALT (7-56) U/L Alkaline Phosphatase (38-126) U/L Troponin I ng/mL Total Protein (5.8-8.3) g/dL Albumin (3.0-4.8) g/dL Globulin gm/dL Albumin/Globulin Ratio (1.1-1.8) 07/15/18 Range/Units 11:24 WBC (4.5-11.0) 10^3/uL RBC (3.5-6.1) 10^6/uL Hgb (14.0-18.0) g/dL Hct (42.0-52.0) % MCV (80.0-105.0) fl MCH (25.0-35.0) pg MCHC (31.0-37.0) g/dl RDW (11.5-14.5) % Plt Count (120.0-450.0) 10^3/uL MPV (7.0-11.0) fl Neut % (Auto) (50.0-68.0) % Lymph % (Auto) (22.0-35.0) % [place] % (Auto) (1.0-6.0) % Eos % (Auto) (1.5-5.0) % Baso % (Auto) (0.0-3.0) % Lymph # (Auto) (1.2-3.4) [place] # (Auto) (0.1-0.6) Eos # (Auto) (0.0-0.7) Baso # (Auto) (0.0-2.0) K/mm3 Absolute Neuts (auto) (1.4-6.5) pCO2 (35-45) mm/Hg pO2 (80-100) mm/Hg HCO3 (21-28) mmol/L ABG pH (7.35-7.45) ABG Total CO2 (22-28) mmol.L ABG O2 Saturation (95-98) % ABG O2 Content (15-23) ML/dl ABG Base Excess (-2.0-3.0) mmol/L ABG Hemoglobin (11.7-17.4) g/dL ABG Carboxyhemoglobin (0.5-1.5) % POC ABG HHb (Measured) (0-5) % ABG Methemoglobin (0.0-3.0) % ABG O2 Capacity (16-24) mL/dl Hgb O2 Saturation (95.0-98.0) % FiO2 % Sodium (132-148) mmol/L Potassium (3.6-5.0) mmol/L Chloride (98-107) mmol/L Carbon Dioxide (21-33) mmol/L Anion Gap (10-20) BUN (7-21) mg/dL Creatinine (0.8-1.5) mg/dl Est GFR ( Amer) Est GFR (Non-Af Amer) POC Glucose (mg/dL) 126 H (65-110) mg/dL Random Glucose (70-110) mg/dL Calcium (8.4-10.5) mg/dL Phosphorus (2.5-4.5) mg/dL Magnesium (1.7-2.2) mg/dL Total Bilirubin (0.2-1.3) mg/dL AST (17-59) U/L ALT (7-56) U/L Alkaline Phosphatase (38-126) U/L Troponin I ng/mL Total Protein (5.8-8.3) g/dL Albumin (3.0-4.8) g/dL Globulin gm/dL Albumin/Globulin Ratio (1.1-1.8) Laboratory Results - last 24 hr 07/15/18 07/15/18 07/15/18 11:24 15:50 21:00 WBC RBC Hgb Hct MCV MCH MCHC RDW Plt Count MPV Neut % (Auto) Lymph % (Auto) [place] % (Auto) Eos % (Auto) Baso % (Auto) Lymph # (Auto) [place] # (Auto) Eos # (Auto) Baso # (Auto) Absolute Neuts (auto) pCO2 pO2 HCO3 ABG pH ABG Total CO2 ABG O2 Saturation ABG O2 Content ABG Base Excess ABG Hemoglobin ABG Carboxyhemoglobin POC ABG HHb (Measured) ABG Methemoglobin ABG O2 Capacity Hgb O2 Saturation FiO2 Sodium Potassium Chloride Carbon Dioxide Anion Gap BUN Creatinine Est GFR ( Amer) Est GFR (Non-Af Amer) POC Glucose (mg/dL) 126 H 88 99 Random Glucose Calcium Phosphorus Magnesium Total Bilirubin AST ALT Alkaline Phosphatase Troponin I Total Protein Albumin Globulin Albumin/Globulin Ratio 07/16/18 07/16/18 07/16/18 04:18 04:18 05:28 WBC 7.9 D RBC 3.69 Hgb 11.4 L Hct 35.1 L MCV 95.1 MCH 30.9 MCHC 32.5 RDW 13.8 Plt Count 383 MPV 9.6 Neut % (Auto) 69.2 H Lymph % (Auto) 19.4 L [place] % (Auto) 7.7 H Eos % (Auto) 3.4 Baso % (Auto) 0.3 Lymph # (Auto) 1.5 [place] # (Auto) 0.6 Eos # (Auto) 0.3 Baso # (Auto) 0.02 Absolute Neuts (auto) 5.45 pCO2 38 pO2 210.0 H HCO3 24.6 ABG pH 7.42 ABG Total CO2 25.8 ABG O2 Saturation 99.8 H ABG O2 Content 15.7 ABG Base Excess 0.2 ABG Hemoglobin 11.1 L ABG Carboxyhemoglobin 1.6 H POC ABG HHb (Measured) 0.2 ABG Methemoglobin 0.9 ABG O2 Capacity 15.7 L Hgb O2 Saturation 97.3 FiO2 60.0 Sodium 138 Potassium 4.4 Chloride 104 Carbon Dioxide 27 Anion Gap 11 BUN 31 H Creatinine 0.8 Est GFR ( Amer) > 60 Est GFR (Non-Af Amer) > 60 POC Glucose (mg/dL) Random Glucose 125 H Calcium 9.0 Phosphorus 3.7 Magnesium 2.3 H Total Bilirubin 0.6 AST 77 H ALT 86 H Alkaline Phosphatase 65 Troponin I 0.02 D Total Protein 7.4 Albumin 3.5 Globulin 3.9 Albumin/Globulin Ratio 0.9 L 07/16/18 05:28 WBC RBC Hgb Hct MCV MCH MCHC RDW Plt Count MPV Neut % (Auto) Lymph % (Auto) [place] % (Auto) Eos % (Auto) Baso % (Auto) Lymph # (Auto) [place] # (Auto) Eos # (Auto) Baso # (Auto) Absolute Neuts (auto) pCO2 pO2 HCO3 ABG pH ABG Total CO2 ABG O2 Saturation ABG O2 Content ABG Base Excess ABG Hemoglobin ABG Carboxyhemoglobin POC ABG HHb (Measured) ABG Methemoglobin ABG O2 Capacity Hgb O2 Saturation FiO2 Sodium Potassium Chloride Carbon Dioxide Anion Gap BUN Creatinine Est GFR ( Amer) Est GFR (Non-Af Amer) POC Glucose (mg/dL) 117 H Random Glucose Calcium Phosphorus Magnesium Total Bilirubin AST ALT Alkaline Phosphatase Troponin I Total Protein Albumin Globulin Albumin/Globulin Ratio Radiology Impressions: Radiology Impressions Interventional Vascular Procedure 07/15/18 12:16 IMPRESSION: Fluoroscopically placed gastrostomy tube as described above EKG/Cardiology Studies: Cardiology / EKG Studies 07/16/18 03:57 EKG [ELECTROCARDIOGRAM] Stat Comment: Reason For Exam: EKG changes Attending/Attestation - Attestation I have personally seen and examined this patient.: Yes I have fully participated in the care of the patient.: Yes I have reviewed all pertinent clinical information: Yes Notes (Text): 07/16/18 12:10 The patient was seen and examined at the bedside. Patient care was discussed with resident Medical records, lab studies, and imaging were reviewed and management issues were discussed and formulated. Agree with above treatment plans as outlined in 's note with addition of the following: sp CPR arrest \ VDRF \ Hypoxemia \ Sepsis \ PNA \ Anoxic Brain injury -hemodynamic monitoring to maintain MAP>65 -cardiology team f\u; hold BBlocker as pt bradycardic overnight and in AM -mechanical ventilation and o2 supplementation to maintain Spo2 >90 Pao2>60 -monitor for TV 6ml\kg IBW and plateau pressure <30 -ABG in AM reviewed -PS and trach collar trial today -continue nebs and pulmonary toileting -continue broad spectrum Abx as per ID team and f\u cultures -f\u Bun\Cr and U\o; monitor and replace e-lites -tube feeds diet and aspiration precautions -s\p PEG placement -f\u serial LFT -neurology team f\u -DVT \ PUD prophylaxis CCM time 33min
--- NOTE | 2018-07-16 12:44 | PN ---
DATE: 07/16/2018 SUBJECTIVE: I saw him in the intensive care unit. He is alert. His eyes are open. He is still on the ventilator with the trach. He is still having questions about a feeding tube or not. It is a tough situation due to the fact he is on Effient and he cannot have Effient stopped at this time. He is on Ativan, Depakene, dextrose, DuoNeb, Ecotrin, Effient, heparin, , Merrem IV, Nicoderm, Protonix, Ritalin, thiamine, Transderm-Scop, vancomycin, and Zestril. He is nonverbal. He just stares. He does not follow any commands. PHYSICAL EXAMINATION: VITAL SIGNS: 98.8 temperature, 69 pulse, 132/94 blood pressure, 19 respiratory rate, 95% O2 sat on 40% mechanical ventilator through the trach. HEENT: Head is atraumatic, normocephalic. His eyes are open this morning, but just staring. Trach is in place, looks clean. HEART: Regular rate. LUNGS: Decreased breath sounds, but clear. ABDOMEN: Soft. EXTREMITIES: No edema. LABORATORY DATA: He has 7.9 white count, that is the best it has been, which is great; 11.4 hemoglobin, 35.1 hematocrit with 383 platelets; it took a lot for the white count to come down and the infection to clear. I am very happy about that. He has 138 sodium, potassium 4.4, BUN 31, creatinine 0.8, that is a little bit better also. GFR is greater than 60, sugar is 117, calcium 9, phosphorous 3.7, magnesium 2.3. Total bili is 0.6, AST is 77, ALT is 86, alk phos is 65, they were much higher than that also. Troponin I is 0.02, total protein 7.4. ASSESSMENT AND PLAN: We will continue with aggressive treatment and care. He is on antibiotics. We are trying to find out if and when he can do a feeding tube placement and then after that I believe it is going to be for long-term acute care. He is being seen by numerous doctors, Cardiology; Neurology; Infectious Disease; Ear, Nose and Throat; interventional radiologist and hat cleaner. Ministerio Wan DO [facility] # [id number] ESTHER
[2018-07-16] MEDS: Dextrose 5%/0.45% NS 1,000 ML IV SCH (13:15)
--- NOTE | 2018-07-16 14:08 | PN ---
DATE: 07/16/2018 SUBJECTIVE: The patient's neurologic status is unchanged. PHYSICAL EXAMINATION: VITAL SIGNS: Blood pressure 132/94, heart rate is in the 70s. NECK: Negative JVD. LUNGS: Without rales. HEART: S1, S2. EXTREMITIES: Without edema. LABORATORY DATA: Hemoglobin 11.4, glucose is 125. IMPRESSION: 1. Anoxic encephalopathy. 2. Status post cardiogenic shock. 3. Status post . 4. History of emergency percutaneous transluminal coronary angioplasty and stent for an inferior wall myocardial infarction with right ventricle involvement. Given these findings, the patient's cardiac status is stable. His neurologic status makes the patient's prognosis is poor. Devonte Patel MD
--- NOTE | 2018-07-16 14:10 | CP.PCM.PN ---
<Nic Bae - Last Filed: 07/16/18 14:07> Subjective - Date & Time of Evaluation Date of Evaluation: 07/16/18 Time of Evaluation: 07:35 - Subjective Subjective: Nic Bae D.O. PGY-3, Internal Medicine Resident, Infectious Disease Progress Note 53-year-old male with a past medical history alcohol abuse, obesity, hypertension, and tobacco abuse who presented to [facility] for complaints of a syncopal episode. Patient was found to have an elevated troponin but refused a cardiac catheterization. Patient suffered cardiac arrest while in ultrasound, V. fib, and was subsequently taken to the [facility] with stenting of the RCA and placement of intra-aortic balloon pump. Infectious disease was consulted for sepsis. Patient was seen and examined at bedside. Unchanged. Not opening eyes or moving. Objective - Vital Signs/Intake and Output Vital Signs (last 24 hours): Temp Pulse Resp BP Pulse Ox 98.8 F 53 L 19 103/56 L 95 07/16/18 07:20 07/16/18 09:55 07/16/18 07:40 07/16/18 09:55 07/16/18 07:40 Intake and Output: 07/16/18 07/16/18 06:59 18:59 Intake Total 850 Output Total 550 Balance 300 - Medications Medications: Current Medications Albuterol/Ipratropium (Duoneb 3 Mg/0.5 Mg (3 Ml) Ud) 3 ml IH Q2H PRN PRN Reason: Shortness of Breath Last Admin: 07/08/18 16:57 Dose: 3 ml Albuterol/Ipratropium (Duoneb 3 Mg/0.5 Mg (3 Ml) Ud) 3 ml IH [id number] [facility] Last Admin: 07/16/18 13:23 Dose: 3 ml Aspirin (Ecotrin) 81 mg PO DAILY [facility] Last Admin: 07/16/18 09:57 Dose: 81 mg Heparin Sodium (Porcine) (Heparin) 5,000 units SC Q12 [facility]; Protocol Last Admin: 07/16/18 09:56 Dose: 5,000 units Meropenem (Merrem Iv 1 Gm Premix) 1 gm in 50 mls @ 100 mls/hr IVPB Q12 [facility]; Protocol Stop: 07/20/18 22:01 Last Admin: 07/16/18 09:48 Dose: 100 mls/hr Thiamine HCl 300 mg/ Sodium (Chloride) 53 mls @ 106 mls/hr IV DAILY [facility] Last Admin: 07/16/18 09:53 Dose: 106 mls/hr Vancomycin HCl (Vancomycin 1gm) 1 gm in 250 mls @ 167 mls/hr IVPB Q12H [facility]; Protocol Last Admin: 07/16/18 07:55 Dose: 167 mls/hr Lisinopril (Zestril) 5 mg PO DAILY [facility] Last Admin: 07/16/18 09:49 Dose: 5 mg Lorazepam (Ativan) 2 mg IVP Q2H PRN; Protocol PRN Reason: Anxiety Last Admin: 07/13/18 16:12 Dose: 2 mg Methylphenidate HCl (Ritalin) 5 mg PO DAILY [facility] Last Admin: 07/16/18 09:49 Dose: 5 mg Pantoprazole Sodium (Protonix Inj) 40 mg IVP DAILY [facility] Last Admin: 07/16/18 09:54 Dose: 40 mg Prasugrel (Effient) 10 mg PO DAILY [facility] Last Admin: 07/16/18 09:56 Dose: 10 mg Scopolamine (Transderm-Scop) 1 patch TD Q3D [facility] Last Admin: 07/14/18 22:00 Dose: 1 patch Valproate Sodium (Depakene Oral Soln) 250 mg PO BID [facility] Last Admin: 07/16/18 09:57 Dose: 250 mg - Labs Labs: 07/16/18 04:18 07/16/18 04:18 PT 12.7 SECONDS (9.4-12.5) H 07/08/18 11:10 INR 1.12 07/08/18 11:10 APTT 27.6 Seconds (26.9-38.3) 07/08/18 11:10 - Constitutional Appears: No Acute Distress, trached - Head Exam Head Exam: NORMOCEPHALIC - Eye Exam Eye Exam: absent: Scleral icterus - ENT Exam ENT Exam: Mucous Membranes Moist - Neck Exam Neck exam: Positive for: Normal Inspection - Respiratory Exam Respiratory Exam: Clear to Auscultation Bilateral. absent: Rales, Rhonchi, Wheezes - Cardiovascular Exam Cardiovascular Exam: RRR, +S1, +S2. absent: Gallop, Rubs - GI/Abdominal Exam GI & Abdominal Exam: Normal Bowel Sounds, Soft. absent: Distended, Tenderness - Extremities Exam Extremities exam: Negative for: calf tenderness, pedal edema - Neurological Exam Additional comments: appears awake but is not alert - Skin Skin Exam: Dry, Warm Assessment and Plan - Assessment and Plan (Free Text) Assessment: 53-year-old male with a past medical history alcohol abuse, obesity, hypertension, and tobacco abuse who presented to [facility] for complaints of a syncopal episode. Patient was found to have an elevated troponin but refused a cardiac catheterization. Patient suffered cardiac arrest while in ultrasound, V. fib, and was subsequently taken to the [facility] with stenting of the RCA and placement of intra-aortic balloon pump. Infectious disease was consulted for sepsis. Plan: Sepsis likely 2/2 HAP with Klebsiella in trach asp Sepsis from aspiration pneumonia with MSSA Ventilator dependent respiratory failure Anoxic brain injury Cardiac arrest CAD status post PCI Hypertension Tobacco abuse Back to being afebrile Leukocytosis resolved Repeat BCx negative 2/2 day 4 New repeat BCx pending Continue meropenem day 4, vancomycin day 2 GI and ICU notes reviewed and appreciated Prognosis is guarded We will follow with you Patient was seen and examined and case to be discussed with attending physician. Thank you for the pleasure of participating in the care of this interesting patient <Colton Michelle - Last Filed: 07/16/18 16:42> Objective - Vital Signs/Intake and Output Vital Signs (last 24 hours): Temp Pulse Resp BP Pulse Ox 99.7 F H 84 19 126/70 94 L 07/16/18 16:02 07/16/18 16:02 07/16/18 07:40 07/16/18 16:01 07/16/18 15:36 Intake and Output: 07/16/18 07/16/18 06:59 18:59 Intake Total 850 Output Total 550 Balance 300 - Medications Medications: Current Medications Albuterol/Ipratropium (Duoneb 3 Mg/0.5 Mg (3 Ml) Ud) 3 ml IH Q2H PRN PRN Reason: Shortness of Breath Last Admin: 07/08/18 16:57 Dose: 3 ml Albuterol/Ipratropium (Duoneb 3 Mg/0.5 Mg (3 Ml) Ud) 3 ml IH [id number] [facility] Last Admin: 07/16/18 13:23 Dose: 3 ml Aspirin (Ecotrin) 81 mg PO DAILY [facility] Last Admin: 04/04/19 09:57 Dose: 81 mg Heparin Sodium (Porcine) (Heparin) 5,000 units SC Q12 [facility]; Protocol Last Admin: 07/16/18 09:56 Dose: 5,000 units Meropenem (Merrem Iv 1 Gm Premix) 1 gm in 50 mls @ 100 mls/hr IVPB Q12 [facility]; Protocol Stop: 07/20/18 22:01 Last Admin: 07/16/18 09:48 Dose: 100 mls/hr Thiamine HCl 300 mg/ Sodium (Chloride) 53 mls @ 106 mls/hr IV DAILY [facility] Last Admin: 07/16/18 09:53 Dose: 106 mls/hr Vancomycin HCl (Vancomycin 1gm) 1 gm in 250 mls @ 167 mls/hr IVPB Q12H [facility]; Protocol Last Admin: 07/16/18 07:55 Dose: 167 mls/hr Lisinopril (Zestril) 5 mg PO DAILY [facility] Last Admin: 07/16/18 09:49 Dose: 5 mg Lorazepam (Ativan) 2 mg IVP Q2H PRN; Protocol PRN Reason: Anxiety Last Admin: 07/13/18 16:12 Dose: 2 mg Methylphenidate HCl (Ritalin) 5 mg PO DAILY [facility] Last Admin: 07/16/18 09:49 Dose: 5 mg Metoprolol Tartrate (Lopressor) 25 mg PO 0800,1800 [facility] Pantoprazole Sodium (Protonix Inj) 40 mg IVP DAILY [facility] Last Admin: 07/16/18 09:54 Dose: 40 mg Prasugrel (Effient) 10 mg PO DAILY [facility] Last Admin: 07/16/18 09:56 Dose: 10 mg Scopolamine (Transderm-Scop) 1 patch TD Q3D [facility] Last Admin: 07/14/18 22:00 Dose: 1 patch Valproate Sodium (Depakene Oral Soln) 250 mg PO BID [facility] Last Admin: 07/16/18 09:57 Dose: 250 mg - Labs Labs: 07/16/18 04:18 07/16/18 04:18 PT 12.7 SECONDS (9.4-12.5) H 07/08/18 11:10 INR 1.12 07/08/18 11:10 APTT 27.6 Seconds (26.9-38.3) 07/08/18 11:10 Attending/Attestation - Attestation I have personally seen and examined this patient.: Yes I have fully participated in the care of the patient.: Yes I have reviewed all pertinent clinical information, including history, physical exam and plan: Yes
--- NOTE | 2018-07-16 18:59 | CARD ---
APPROVED REPORT Date of service: 07/16/2018 EKG Measurement Heart [id number] <Conclusion> Sinus bradycardia with occasional premature ventricular complexes Minimal voltage criteria for LVH, may be normal variant Cannot rule out Inferior infarct, age undetermined Abnormal ECG
[2018-07-17] MEDS: Albuterol-Ipratrop 3 mg / 0.5 (3 ml) UD IH SCH ×4 (02:28→20:30)
[2018-07-17 06:36] LABS: BASO # 0.02 K/mm3 (0.0-2.0); BASO % 0.2 % (0.0-3.0); EOS # 0.2 (0.0-0.7); EOS % 2.3 % (1.5-5.0); LYMPH # 1.7 (1.2-3.4); LYMPH % 18.3 % (22.0-35.0); MEAN CELL VOLUME 93.7 fl (80.0-105.0); MEAN CORPUSCULAR HEMOGLOBIN 30.5 pg (25.0-35.0); MEAN CORPUSCULAR HGB CONC 32.5 g/dl (31.0-37.0); MEAN PLATELET VOLUME 9.9 fl (7.0-11.0); MONO # 0.5 (0.1-0.6); RBC 3.94 10^6/uL (3.5-6.1); RED CELL DISTRIBUTION WIDTH 13.5 % (11.5-14.5); WHITE BLOOD COUNT 9.4 10^3/uL (4.5-11.0)
[2018-07-17 06:37] LABS: ARTERIAL BLOOD GAS HCO3 24.5 mmol/L (21-28); ARTERIAL BLOOD GAS HEMOGLOBIN 12.2 g/dL (11.7-17.4); ARTERIAL BLOOD GAS O2 CAPACITY 16.8 mL/dl (16-24); ARTERIAL BLOOD GAS O2 CONTENT 16.6 ML/dl (15-23); ARTERIAL BLOOD GAS O2 SAT 98.9 % (95-98); ARTERIAL BLOOD GAS PCO2 36 mm/Hg (35-45); ARTERIAL BLOOD GAS PH 7.44 (7.35-7.45); ARTERIAL BLOOD GAS TCO2 25.6 mmol.L (22-28)
[2018-07-17 07:04] LABS: ALB/GLOB RATIO 0.9 (1.1-1.8); ALBUMIN 3.6 g/dL (3.0-4.8); ALT/SGPT 91 U/L (7-56); AST/SGOT 73 U/L (17-59); BLOOD UREA NITROGEN 29 mg/dL (7-21); CALCIUM 9.5 mg/dL (8.4-10.5); GFR NON-AFRICAN AMERICAN > 60
[2018-07-17] MEDS: Vancomycin 1gm in NS 250ml 1 GM/250 ML BAG IVPB SCH ×2 (08:30→21:03)
--- NOTE | 2018-07-17 08:54 | CP.CCUPN ---
<Jaime Cardenas - Last Filed: 07/17/18 09:32> CCU Subjective - Physician Review Subjective (Free Text): Jaime Cardenas DO. Critical Care Progress note Patient seen and examined at bedside, on pressure support ventilation, off sedatives. No fever or significant events overnight. CCU Objective - Vital Signs / Intake & Output Vital Signs (Last 4 hours): Vital Signs Temp Pulse Resp BP Pulse Ox 07/17/18 07:07 99.7 F H 82 98 07/17/18 07:00 99.7 F H 74 15 163/87 H 100 07/17/18 06:25 99.7 F H 62 98 07/17/18 06:24 99.7 F H 65 98 07/17/18 06:11 99.9 F H 73 96 07/17/18 06:01 99.9 F H 73 99 07/17/18 06:00 99.9 F H 74 13 144/97 H 96 07/17/18 05:20 99.9 F H 60 97 07/17/18 05:18 99.9 F H 65 97 07/17/18 05:13 99.9 F H 62 95 07/17/18 05:00 100.0 F H 63 19 135/63 94 L Intake and Output (Last 8hrs): Intake & Output 07/16/18 07/17/18 07/17/18 22:59 06:59 14:59 Intake Total 2110 300 Output Total 1200 1050 Balance 910 -750 Intake: IV 450 300 Right Antecubital 450 Right Upper arm 300 Oral 0 Tube Feeding 1360 Other 300 Output: Urine 1200 900 Condom 1200 900 Stool 100 Urine/Stool Mix 50 Other: # Bowel Movements 1 - Physical Exam Head: Positive for: Atraumatic, Normocephalic Pupils: Positive for: Sluggish Extroacular Muscles: Positive for: EOMI Conjunctiva: Positive for: Normal Mouth: Positive for: Moist Mucous Membranes Nose (Internal): Positive for: Other (dried blood nticed, packing applied) Neck: Positive for: Normal Range of Motion. Negative for: JVD, Lymphadenopathy Respiratory/Chest: Positive for: Clear to Auscultation. Negative for: Wheezes, Rhonchi Cardiovascular: Positive for: Regular Rate and Rhythm, Normal S1, S2. Negative for: Murmurs, Rub, Gallop Abdomen: Positive for: Normal Bowel Sounds. Negative for: Distention, Mass/Organomegaly Back: Positive for: Normal Inspection Upper Extremity: Positive for: Normal Inspection, NORMAL PULSES. Negative for: Cyanosis, Edema Lower Extremity: Positive for: Normal Inspection, NORMAL PULSES. Negative for: Edema, Cyanosis, Swelling, Erythema Neurological: Positive for: Other (GCS =4 [id number]) Skin: Positive for: Warm, Dry, Normal Color. Negative for: Rashes Psychiatric: Positive for: Other (trach collar) - Medications Active Medications: Active Medications Generic Name Dose Route Start Last Admin Trade Name Freq PRN Reason Stop Dose Admin Albuterol/Ipratropium 3 ml 07/01/18 17:28 07/08/18 16:57 Duoneb 3 Mg/0.5 Mg (3 Ml) Ud IH 3 ml Q2H PRN Administration Shortness of Breath Albuterol/Ipratropium 3 ml 07/04/18 14:00 07/17/18 07:06 Duoneb 3 Mg/0.5 Mg (3 Ml) Ud IH 3 ml [id number] XU Administration Aspirin 81 mg 07/02/18 10:30 07/16/18 09:57 Ecotrin PO 81 mg DAILY XU Administration Heparin Sodium (Porcine) 5,000 units 07/14/18 11:15 07/16/18 21:05 Heparin SC 5,000 units Q12 XU Administration Protocol Meropenem 1 gm in 50 mls @ 100 mls/hr 07/13/18 22:00 07/16/18 21:04 Merrem Iv 1 Gm Premix IVPB 07/20/18 22:01 100 mls/hr Q12 XU Administration Protocol Thiamine HCl 300 mg/ Sodium 53 mls @ 106 mls/hr 07/14/18 15:30 07/16/18 09:53 Chloride IV 106 mls/hr DAILY XU Administration Vancomycin HCl 1 gm in 250 mls @ 167 mls/hr 07/15/18 08:15 07/17/18 08:30 Vancomycin 1gm IVPB 167 mls/hr Q12H XU Administration Protocol Lisinopril 5 mg 07/17/18 08:30 Zestril PO DAILY XU Lorazepam 2 mg 07/01/18 14:13 07/13/18 16:12 Ativan IVP 2 mg Q2H PRN Administration Anxiety Protocol Methylphenidate HCl 5 mg 07/14/18 14:15 07/16/18 09:49 Ritalin PO 5 mg DAILY XU Administration Pantoprazole Sodium 40 mg 07/14/18 10:00 07/16/18 09:54 Protonix Inj IVP 40 mg DAILY XU Administration Prasugrel 10 mg 07/04/18 10:00 07/16/18 09:56 Effient PO 10 mg DAILY XU Administration Scopolamine 1 patch 07/11/18 21:30 07/14/18 22:00 Transderm-Scop TD 1 patch Q3D XU Administration Valproate Sodium 250 mg 07/14/18 18:00 07/16/18 09:57 Depakene Oral Soln PO 250 mg BID XU Administration - Patient Studies Lab Studies: Microbiology Studies 07/11/18 19:00 Blood Culture - Final Blood NO GROWTH AFTER 5 DAYS Gram Stain - Final TEST NOT PERFORMED 07/11/18 18:45 Blood Culture - Final Blood NO GROWTH AFTER 5 DAYS Gram Stain - Final TEST NOT PERFORMED 07/15/18 15:00 Blood Culture - Preliminary Blood NO GROWTH AFTER 24 HOURS 07/15/18 14:30 Blood Culture - Preliminary Blood NO GROWTH AFTER 24 HOURS Lab Studies 07/17/18 07/17/18 07/17/18 Range/Units 07:35 06:30 06:00 WBC (4.5-11.0) 10^3/uL RBC (3.5-6.1) 10^6/uL Hgb (14.0-18.0) g/dL Hct (42.0-52.0) % MCV (80.0-105.0) fl MCH (25.0-35.0) pg MCHC (31.0-37.0) g/dl RDW (11.5-14.5) % Plt Count (120.0-450.0) 10^3/uL MPV (7.0-11.0) fl Neut % (Auto) (50.0-68.0) % Lymph % (Auto) (22.0-35.0) % [place] % (Auto) (1.0-6.0) % Eos % (Auto) (1.5-5.0) % Baso % (Auto) (0.0-3.0) % Lymph # (Auto) (1.2-3.4) [place] # (Auto) (0.1-0.6) Eos # (Auto) (0.0-0.7) Baso # (Auto) (0.0-2.0) K/mm3 Absolute Neuts (auto) (1.4-6.5) pCO2 36 (35-45) mm/Hg pO2 93.0 (80-100) mm/Hg HCO3 24.5 (21-28) mmol/L ABG pH 7.44 (7.35-7.45) ABG Total CO2 25.6 (22-28) mmol.L ABG O2 Saturation 98.9 H (95-98) % ABG O2 Content 16.6 (15-23) ML/dl ABG Base Excess 0.6 (-2.0-3.0) mmol/L ABG Hemoglobin 12.2 (11.7-17.4) g/dL ABG Carboxyhemoglobin 1.9 H (0.5-1.5) % POC ABG HHb (Measured) 1.1 (0-5) % ABG Methemoglobin 0.9 (0.0-3.0) % ABG O2 Capacity 16.8 (16-24) mL/dl Hgb O2 Saturation 96.1 (95.0-98.0) % FiO2 40.0 % Sodium 138 (132-148) mmol/L Potassium 4.6 (3.6-5.0) mmol/L Chloride 104 (98-107) mmol/L Carbon Dioxide 26 (21-33) mmol/L Anion Gap 13 (10-20) BUN 29 H (7-21) mg/dL Creatinine 0.7 L (0.8-1.5) mg/dl Est GFR ( Amer) > 60 Est GFR (Non-Af Amer) > 60 POC Glucose (mg/dL) 98 (65-110) mg/dL Random Glucose 105 (70-110) mg/dL Calcium 9.5 (8.4-10.5) mg/dL Magnesium 2.2 (1.7-2.2) mg/dL Total Bilirubin 0.6 (0.2-1.3) mg/dL AST 73 H (17-59) U/L ALT 91 H (7-56) U/L Alkaline Phosphatase 71 (38-126) U/L Total Protein 7.7 (5.8-8.3) g/dL Albumin 3.6 (3.0-4.8) g/dL Globulin 4.1 gm/dL Albumin/Globulin Ratio 0.9 L (1.1-1.8) 07/17/18 07/17/18 07/17/18 Range/Units 05:00 03:41 00:03 WBC 9.4 (4.5-11.0) 10^3/uL RBC 3.94 (3.5-6.1) 10^6/uL Hgb 12.0 L (14.0-18.0) g/dL Hct 36.9 L (42.0-52.0) % MCV 93.7 (80.0-105.0) fl MCH 30.5 (25.0-35.0) pg MCHC 32.5 (31.0-37.0) g/dl RDW 13.5 (11.5-14.5) % Plt Count 418 (120.0-450.0) 10^3/uL MPV 9.9 (7.0-11.0) fl Neut % (Auto) 74.2 H (50.0-68.0) % Lymph % (Auto) 18.3 L (22.0-35.0) % [place] % (Auto) 5.0 (1.0-6.0) % Eos % (Auto) 2.3 (1.5-5.0) % Baso % (Auto) 0.2 (0.0-3.0) % Lymph # (Auto) 1.7 (1.2-3.4) [place] # (Auto) 0.5 (0.1-0.6) Eos # (Auto) 0.2 (0.0-0.7) Baso # (Auto) 0.02 (0.0-2.0) K/mm3 Absolute Neuts (auto) 7.00 H (1.4-6.5) pCO2 (35-45) mm/Hg pO2 (80-100) mm/Hg HCO3 (21-28) mmol/L ABG pH (7.35-7.45) ABG Total CO2 (22-28) mmol.L ABG O2 Saturation (95-98) % ABG O2 Content (15-23) ML/dl ABG Base Excess (-2.0-3.0) mmol/L ABG Hemoglobin (11.7-17.4) g/dL ABG Carboxyhemoglobin (0.5-1.5) % POC ABG HHb (Measured) (0-5) % ABG Methemoglobin (0.0-3.0) % ABG O2 Capacity (16-24) mL/dl Hgb O2 Saturation (95.0-98.0) % FiO2 % Sodium (132-148) mmol/L Potassium (3.6-5.0) mmol/L Chloride (98-107) mmol/L Carbon Dioxide (21-33) mmol/L Anion Gap (10-20) BUN (7-21) mg/dL Creatinine (0.8-1.5) mg/dl Est GFR ( Amer) Est GFR (Non-Af Amer) POC Glucose (mg/dL) 118 H 119 H (65-110) mg/dL Random Glucose (70-110) mg/dL Calcium (8.4-10.5) mg/dL Magnesium (1.7-2.2) mg/dL Total Bilirubin (0.2-1.3) mg/dL AST (17-59) U/L ALT (7-56) U/L Alkaline Phosphatase (38-126) U/L Total Protein (5.8-8.3) g/dL Albumin (3.0-4.8) g/dL Globulin gm/dL Albumin/Globulin Ratio (1.1-1.8) 07/16/18 07/16/18 Range/Units 17:23 12:05 WBC (4.5-11.0) 10^3/uL RBC (3.5-6.1) 10^6/uL Hgb (14.0-18.0) g/dL Hct (42.0-52.0) % MCV (80.0-105.0) fl MCH (25.0-35.0) pg MCHC (31.0-37.0) g/dl RDW (11.5-14.5) % Plt Count (120.0-450.0) 10^3/uL MPV (7.0-11.0) fl Neut % (Auto) (50.0-68.0) % Lymph % (Auto) (22.0-35.0) % [place] % (Auto) (1.0-6.0) % Eos % (Auto) (1.5-5.0) % Baso % (Auto) (0.0-3.0) % Lymph # (Auto) (1.2-3.4) [place] # (Auto) (0.1-0.6) Eos # (Auto) (0.0-0.7) Baso # (Auto) (0.0-2.0) K/mm3 Absolute Neuts (auto) (1.4-6.5) pCO2 (35-45) mm/Hg pO2 (80-100) mm/Hg HCO3 (21-28) mmol/L ABG pH (7.35-7.45) ABG Total CO2 (22-28) mmol.L ABG O2 Saturation (95-98) % ABG O2 Content (15-23) ML/dl ABG Base Excess (-2.0-3.0) mmol/L ABG Hemoglobin (11.7-17.4) g/dL ABG Carboxyhemoglobin (0.5-1.5) % POC ABG HHb (Measured) (0-5) % ABG Methemoglobin (0.0-3.0) % ABG O2 Capacity (16-24) mL/dl Hgb O2 Saturation (95.0-98.0) % FiO2 % Sodium (132-148) mmol/L Potassium (3.6-5.0) mmol/L Chloride (98-107) mmol/L Carbon Dioxide (21-33) mmol/L Anion Gap (10-20) BUN (7-21) mg/dL Creatinine (0.8-1.5) mg/dl Est GFR ( Amer) Est GFR (Non-Af Amer) POC Glucose (mg/dL) 98 125 H (65-110) mg/dL Random Glucose (70-110) mg/dL Calcium (8.4-10.5) mg/dL Magnesium (1.7-2.2) mg/dL Total Bilirubin (0.2-1.3) mg/dL AST (17-59) U/L ALT (7-56) U/L Alkaline Phosphatase (38-126) U/L Total Protein (5.8-8.3) g/dL Albumin (3.0-4.8) g/dL Globulin gm/dL Albumin/Globulin Ratio (1.1-1.8) Laboratory Results - last 24 hr 07/16/18 07/16/18 07/17/18 12:05 17:23 00:03 WBC RBC Hgb Hct MCV MCH MCHC RDW Plt Count MPV Neut % (Auto) Lymph % (Auto) [place] % (Auto) Eos % (Auto) Baso % (Auto) Lymph # (Auto) [place] # (Auto) Eos # (Auto) Baso # (Auto) Absolute Neuts (auto) pCO2 pO2 HCO3 ABG pH ABG Total CO2 ABG O2 Saturation ABG O2 Content ABG Base Excess ABG Hemoglobin ABG Carboxyhemoglobin POC ABG HHb (Measured) ABG Methemoglobin ABG O2 Capacity Hgb O2 Saturation FiO2 Sodium Potassium Chloride Carbon Dioxide Anion Gap BUN Creatinine Est GFR ( Amer) Est GFR (Non-Af Amer) POC Glucose (mg/dL) 125 H 98 119 H Random Glucose Calcium Magnesium Total Bilirubin AST ALT Alkaline Phosphatase Total Protein Albumin Globulin Albumin/Globulin Ratio 07/17/18 07/17/18 07/17/18 03:41 05:00 06:00 WBC 9.4 RBC 3.94 Hgb 12.0 L Hct 36.9 L MCV 93.7 MCH 30.5 MCHC 32.5 RDW 13.5 Plt Count 418 MPV 9.9 Neut % (Auto) 74.2 H Lymph % (Auto) 18.3 L [place] % (Auto) 5.0 Eos % (Auto) 2.3 Baso % (Auto) 0.2 Lymph # (Auto) 1.7 [place] # (Auto) 0.5 Eos # (Auto) 0.2 Baso # (Auto) 0.02 Absolute Neuts (auto) 7.00 H pCO2 36 pO2 93.0 HCO3 24.5 ABG pH 7.44 ABG Total CO2 25.6 ABG O2 Saturation 98.9 H ABG O2 Content 16.6 ABG Base Excess 0.6 ABG Hemoglobin 12.2 ABG Carboxyhemoglobin 1.9 H POC ABG HHb (Measured) 1.1 ABG Methemoglobin 0.9 ABG O2 Capacity 16.8 Hgb O2 Saturation 96.1 FiO2 40.0 Sodium Potassium Chloride Carbon Dioxide Anion Gap BUN Creatinine Est GFR ( Amer) Est GFR (Non-Af Amer) POC Glucose (mg/dL) 118 H Random Glucose Calcium Magnesium Total Bilirubin AST ALT Alkaline Phosphatase Total Protein Albumin Globulin Albumin/Globulin Ratio 07/17/18 07/17/18 06:30 07:35 WBC RBC Hgb Hct MCV MCH MCHC RDW Plt Count MPV Neut % (Auto) Lymph % (Auto) [place] % (Auto) Eos % (Auto) Baso % (Auto) Lymph # (Auto) [place] # (Auto) Eos # (Auto) Baso # (Auto) Absolute Neuts (auto) pCO2 pO2 HCO3 ABG pH ABG Total CO2 ABG O2 Saturation ABG O2 Content ABG Base Excess ABG Hemoglobin ABG Carboxyhemoglobin POC ABG HHb (Measured) ABG Methemoglobin ABG O2 Capacity Hgb O2 Saturation FiO2 Sodium 138 Potassium 4.6 Chloride 104 Carbon Dioxide 26 Anion Gap 13 BUN 29 H Creatinine 0.7 L Est GFR ( Amer) > 60 Est GFR (Non-Af Amer) > 60 POC Glucose (mg/dL) 98 Random Glucose 105 Calcium 9.5 Magnesium 2.2 Total Bilirubin 0.6 AST 73 H ALT 91 H Alkaline Phosphatase 71 Total Protein 7.7 Albumin 3.6 Globulin 4.1 Albumin/Globulin Ratio 0.9 L Fingerstick Blood Sugar Results: 106 Assessment/Plan - Assessment and Plan (Free Text) Assessment: 53 y/o male admitted to ICU s/p VFib cardiac arrest with subsequent PCI with RCA stent placed. He sustained hypoxic cerebral injury with diffuse cerebral edema requiring intubation. Now on pressure support and off sedation Plan: Neuro: -hypoxic brain injury in the setting of VFib cardiac arrest with subsequent multiple defibrillation then PCI and RCA ANALISA placement -GCS=6 [id number] -d/c precedex -hypothermic protocol not initiated on admission to ICU due to epistaxis and hemoptysis at that time -CT head: no ICH, diffuse cerebral edema -Video EEG: no seizure activity. Severe slowing/attenuation -continue ativan prn -continue thiamine 300 mg IV daily for neurocognitive activation as per neuro -started ritalin 5 mg daily as per neuro recs -started valproic acid 250 mg po bid for purposeless movement -neuro following, Dr King -heavy smoker. nicotine patch 21 mg/24 hr -maintain normothermia Cardio: -cardiac arrest due to VFib s/p PCI with RCA ANALISA -continue asa, effient, -patient is hypotensive, mild BUN/Cr elevation. lisinopril decreased to 5 mg daily, lopressor decreased to 12.5 mg bid -statins held due to elevated LFT -maintain BP 130-140s/70-80s. MAP>65 -Echo: LVEF 45% LVH with hypokinesis, mild pulm HTN -cardiology following Pulm: -ventilator dependent respiratory failure. s/p tracheostomy (07/08) -on PS/CPAP35/5/5 tach collar -AB.44/36/ -mouth hygeine, DVT/GI ppx, head elevation 30 degree, sedation vacation -COPD, chronic smoker, duonebs xu and prn, pulmonary toilet -maintain O2>92% GI: -transaminitis trending down -patient alcoholic, obese, hepatitis panel negative -U/S abdomen: fibro/fatty liver infiltration -continue NG enteral feeding -s/p PEG placement Renal: -replete lytes as needed -UOP 700 cc -hold IVF. CXR shows volume overload -maintain euvolemia, euglycemia -UDS positive for amphetamine, benzo ID: -Tmax 100.4F last night. WBC trending down -tracheal aspiration positive for MSSA, klebsiella -blood and urine cx negative to date -low procal, lactate -continue vancomycin, meropenem per ID -HIV, legionella, MRSA negative -ID following Heme: -H/H stable -continue monitoring Prophylaxis: GI ppx Protonix q12 DVT SCD, Heparin sq Patient is hemodynamically stable, normotensive, afebrile, on trach collar, no pressors, PEG in place, on tube feeding. He is stable for ransfer to tele. 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 and family still working on transferring the patient to LTACH facility in [place] Case reviewed and plan discussed with attending physician Dr Ambriz <Brandon Ambriz - Last Filed: 07/17/18 09:57> CCU Objective - Vital Signs / Intake & Output Vital Signs (Last 4 hours): Vital Signs Temp Pulse Resp BP Pulse Ox 07/17/18 07:07 99.7 F H 82 98 07/17/18 07:00 99.7 F H 74 15 163/87 H 100 07/17/18 06:25 99.7 F H 62 98 07/17/18 06:24 99.7 F H 65 98 07/17/18 06:11 99.9 F H 73 96 07/17/18 06:01 99.9 F H 73 99 07/17/18 06:00 99.9 F H 74 13 144/97 H 96 Intake and Output (Last 8hrs): Intake & Output 07/16/18 07/17/18 07/17/18 22:59 06:59 14:59 Intake Total 2110 300 Output Total 1200 1050 Balance 910 -750 Intake: IV 450 300 Right Antecubital 450 Right Upper arm 300 Oral 0 Tube Feeding 1360 Other 300 Output: Urine 1200 900 Condom 1200 900 Stool 100 Urine/Stool Mix 50 Other: # Bowel Movements 1 - Medications Active Medications: Active Medications Generic Name Dose Route Start Last Admin Trade Name Freq PRN Reason Stop Dose Admin Albuterol/Ipratropium 3 ml 07/01/18 17:28 07/08/18 16:57 Duoneb 3 Mg/0.5 Mg (3 Ml) Ud IH 3 ml Q2H PRN Administration Shortness of Breath Albuterol/Ipratropium 3 ml 07/04/18 14:00 07/17/18 07:06 Duoneb 3 Mg/0.5 Mg (3 Ml) Ud IH 3 ml [id number] XU Administration Aspirin 81 mg 07/02/18 10:30 07/16/18 09:57 Ecotrin PO 81 mg DAILY XU Administration Heparin Sodium (Porcine) 5,000 units 07/14/18 11:15 07/16/18 21:05 Heparin SC 5,000 units Q12 XU Administration Protocol Meropenem 1 gm in 50 mls @ 100 mls/hr 07/13/18 22:00 07/16/18 21:04 Merrem Iv 1 Gm Premix IVPB 07/20/18 22:01 100 mls/hr Q12 XU Administration Protocol Thiamine HCl 300 mg/ Sodium 53 mls @ 106 mls/hr 07/14/18 15:30 07/16/18 09:53 Chloride IV 106 mls/hr DAILY XU Administration Vancomycin HCl 1 gm in 250 mls @ 167 mls/hr 07/15/18 08:15 07/17/18 08:30 Vancomycin 1gm IVPB 167 mls/hr Q12H XU Administration Protocol Lisinopril 5 mg 07/17/18 08:30 Zestril PO DAILY XU Lorazepam 2 mg 07/01/18 14:13 07/13/18 16:12 Ativan IVP 2 mg Q2H PRN Administration Anxiety Protocol Methylphenidate HCl 5 mg 07/14/18 14:15 07/16/18 09:49 Ritalin PO 5 mg DAILY UX Administration Pantoprazole Sodium 40 mg 07/14/18 10:00 07/16/18 09:54 Protonix Inj IVP 40 mg DAILY XU Administration Prasugrel 10 mg 07/04/18 10:00 07/16/18 09:56 Effient PO 10 mg DAILY XU Administration Scopolamine 1 patch 07/11/18 21:30 07/14/18 22:00 Transderm-Scop TD 1 patch Q3D XU Administration Valproate Sodium 250 mg 07/14/18 18:00 07/16/18 09:57 Depakene Oral Soln PO 250 mg BID XU Administration - Patient Studies Lab Studies: Microbiology Studies 07/11/18 19:00 Blood Culture - Final Blood NO GROWTH AFTER 5 DAYS Gram Stain - Final TEST NOT PERFORMED 07/11/18 18:45 Blood Culture - Final Blood NO GROWTH AFTER 5 DAYS Gram Stain - Final TEST NOT PERFORMED 07/15/18 15:00 Blood Culture - Preliminary Blood NO GROWTH AFTER 24 HOURS 07/15/18 14:30 Blood Culture - Preliminary Blood NO GROWTH AFTER 24 HOURS Lab Studies 07/17/18 07/17/18 07/17/18 Range/Units 07:35 06:30 06:00 WBC (4.5-11.0) 10^3/uL RBC (3.5-6.1) 10^6/uL Hgb (14.0-18.0) g/dL Hct (42.0-52.0) % MCV (80.0-105.0) fl MCH (25.0-35.0) pg MCHC (31.0-37.0) g/dl RDW (11.5-14.5) % Plt Count (120.0-450.0) 10^3/uL MPV (7.0-11.0) fl Neut % (Auto) (50.0-68.0) % Lymph % (Auto) (22.0-35.0) % [place] % (Auto) (1.0-6.0) % Eos % (Auto) (1.5-5.0) % Baso % (Auto) (0.0-3.0) % Lymph # (Auto) (1.2-3.4) [place] # (Auto) (0.1-0.6) Eos # (Auto) (0.0-0.7) Baso # (Auto) (0.0-2.0) K/mm3 Absolute Neuts (auto) (1.4-6.5) pCO2 36 (35-45) mm/Hg pO2 93.0 (80-100) mm/Hg HCO3 24.5 (21-28) mmol/L ABG pH 7.44 (7.35-7.45) ABG Total CO2 25.6 (22-28) mmol.L ABG O2 Saturation 98.9 H (95-98) % ABG O2 Content 16.6 (15-23) ML/dl ABG Base Excess 0.6 (-2.0-3.0) mmol/L ABG Hemoglobin 12.2 (11.7-17.4) g/dL ABG Carboxyhemoglobin 1.9 H (0.5-1.5) % POC ABG HHb (Measured) 1.1 (0-5) % ABG Methemoglobin 0.9 (0.0-3.0) % ABG O2 Capacity 16.8 (16-24) mL/dl Hgb O2 Saturation 96.1 (95.0-98.0) % FiO2 40.0 % Sodium 138 (132-148) mmol/L Potassium 4.6 (3.6-5.0) mmol/L Chloride 104 (98-107) mmol/L Carbon Dioxide 26 (21-33) mmol/L Anion Gap 13 (10-20) BUN 29 H (7-21) mg/dL Creatinine 0.7 L (0.8-1.5) mg/dl Est GFR ( Amer) > 60 Est GFR (Non-Af Amer) > 60 POC Glucose (mg/dL) 98 (65-110) mg/dL Random Glucose 105 (70-110) mg/dL Calcium 9.5 (8.4-10.5) mg/dL Magnesium 2.2 (1.7-2.2) mg/dL Total Bilirubin 0.6 (0.2-1.3) mg/dL AST 73 H (17-59) U/L ALT 91 H (7-56) U/L Alkaline Phosphatase 71 (38-126) U/L Total Protein 7.7 (5.8-8.3) g/dL Albumin 3.6 (3.0-4.8) g/dL Globulin 4.1 gm/dL Albumin/Globulin Ratio 0.9 L (1.1-1.8) 07/17/18 07/17/18 07/17/18 Range/Units 05:00 03:41 00:03 WBC 9.4 (4.5-11.0) 10^3/uL RBC 3.94 (3.5-6.1) 10^6/uL Hgb 12.0 L (14.0-18.0) g/dL Hct 36.9 L (42.0-52.0) % MCV 93.7 (80.0-105.0) fl MCH 30.5 (25.0-35.0) pg MCHC 32.5 (31.0-37.0) g/dl RDW 13.5 (11.5-14.5) % Plt Count 418 (120.0-450.0) 10^3/uL MPV 9.9 (7.0-11.0) fl Neut % (Auto) 74.2 H (50.0-68.0) % Lymph % (Auto) 18.3 L (22.0-35.0) % [place] % (Auto) 5.0 (1.0-6.0) % Eos % (Auto) 2.3 (1.5-5.0) % Baso % (Auto) 0.2 (0.0-3.0) % Lymph # (Auto) 1.7 (1.2-3.4) [place] # (Auto) 0.5 (0.1-0.6) Eos # (Auto) 0.2 (0.0-0.7) Baso # (Auto) 0.02 (0.0-2.0) K/mm3 Absolute Neuts (auto) 7.00 H (1.4-6.5) pCO2 (35-45) mm/Hg pO2 (80-100) mm/Hg HCO3 (21-28) mmol/L ABG pH (7.35-7.45) ABG Total CO2 (22-28) mmol.L ABG O2 Saturation (95-98) % ABG O2 Content (15-23) ML/dl ABG Base Excess (-2.0-3.0) mmol/L ABG Hemoglobin (11.7-17.4) g/dL ABG Carboxyhemoglobin (0.5-1.5) % POC ABG HHb (Measured) (0-5) % ABG Methemoglobin (0.0-3.0) % ABG O2 Capacity (16-24) mL/dl Hgb O2 Saturation (95.0-98.0) % FiO2 % Sodium (132-148) mmol/L Potassium (3.6-5.0) mmol/L Chloride (98-107) mmol/L Carbon Dioxide (21-33) mmol/L Anion Gap (10-20) BUN (7-21) mg/dL Creatinine (0.8-1.5) mg/dl Est GFR ( Amer) Est GFR (Non-Af Amer) POC Glucose (mg/dL) 118 H 119 H (65-110) mg/dL Random Glucose (70-110) mg/dL Calcium (8.4-10.5) mg/dL Magnesium (1.7-2.2) mg/dL Total Bilirubin (0.2-1.3) mg/dL AST (17-59) U/L ALT (7-56) U/L Alkaline Phosphatase (38-126) U/L Total Protein (5.8-8.3) g/dL Albumin (3.0-4.8) g/dL Globulin gm/dL Albumin/Globulin Ratio (1.1-1.8) 07/16/18 07/16/18 Range/Units 17:23 12:05 WBC (4.5-11.0) 10^3/uL RBC (3.5-6.1) 10^6/uL Hgb (14.0-18.0) g/dL Hct (42.0-52.0) % MCV (80.0-105.0) fl MCH (25.0-35.0) pg MCHC (31.0-37.0) g/dl RDW (11.5-14.5) % Plt Count (120.0-450.0) 10^3/uL MPV (7.0-11.0) fl Neut % (Auto) (50.0-68.0) % Lymph % (Auto) (22.0-35.0) % [place] % (Auto) (1.0-6.0) % Eos % (Auto) (1.5-5.0) % Baso % (Auto) (0.0-3.0) % Lymph # (Auto) (1.2-3.4) [place] # (Auto) (0.1-0.6) Eos # (Auto) (0.0-0.7) Baso # (Auto) (0.0-2.0) K/mm3 Absolute Neuts (auto) (1.4-6.5) pCO2 (35-45) mm/Hg pO2 (80-100) mm/Hg HCO3 (21-28) mmol/L ABG pH (7.35-7.45) ABG Total CO2 (22-28) mmol.L ABG O2 Saturation (95-98) % ABG O2 Content (15-23) ML/dl ABG Base Excess (-2.0-3.0) mmol/L ABG Hemoglobin (11.7-17.4) g/dL ABG Carboxyhemoglobin (0.5-1.5) % POC ABG HHb (Measured) (0-5) % ABG Methemoglobin (0.0-3.0) % ABG O2 Capacity (16-24) mL/dl Hgb O2 Saturation (95.0-98.0) % FiO2 % Sodium (132-148) mmol/L Potassium (3.6-5.0) mmol/L Chloride (98-107) mmol/L Carbon Dioxide (21-33) mmol/L Anion Gap (10-20) BUN (7-21) mg/dL Creatinine (0.8-1.5) mg/dl Est GFR ( Amer) Est GFR (Non-Af Amer) POC Glucose (mg/dL) 98 125 H (65-110) mg/dL Random Glucose (70-110) mg/dL Calcium (8.4-10.5) mg/dL Magnesium (1.7-2.2) mg/dL Total Bilirubin (0.2-1.3) mg/dL AST (17-59) U/L ALT (7-56) U/L Alkaline Phosphatase (38-126) U/L Total Protein (5.8-8.3) g/dL Albumin (3.0-4.8) g/dL Globulin gm/dL Albumin/Globulin Ratio (1.1-1.8) Laboratory Results - last 24 hr 07/16/18 07/16/18 07/17/18 12:05 17:23 00:03 WBC RBC Hgb Hct MCV MCH MCHC RDW Plt Count MPV Neut % (Auto) Lymph % (Auto) [place] % (Auto) Eos % (Auto) Baso % (Auto) Lymph # (Auto) [place] # (Auto) Eos # (Auto) Baso # (Auto) Absolute Neuts (auto) pCO2 pO2 HCO3 ABG pH ABG Total CO2 ABG O2 Saturation ABG O2 Content ABG Base Excess ABG Hemoglobin ABG Carboxyhemoglobin POC ABG HHb (Measured) ABG Methemoglobin ABG O2 Capacity Hgb O2 Saturation FiO2 Sodium Potassium Chloride Carbon Dioxide Anion Gap BUN Creatinine Est GFR ( Amer) Est GFR (Non-Af Amer) POC Glucose (mg/dL) 125 H 98 119 H Random Glucose Calcium Magnesium Total Bilirubin AST ALT Alkaline Phosphatase Total Protein Albumin Globulin Albumin/Globulin Ratio 07/17/18 07/17/18 07/17/18 03:41 05:00 06:00 WBC 9.4 RBC 3.94 Hgb 12.0 L Hct 36.9 L MCV 93.7 MCH 30.5 MCHC 32.5 RDW 13.5 Plt Count 418 MPV 9.9 Neut % (Auto) 74.2 H Lymph % (Auto) 18.3 L [place] % (Auto) 5.0 Eos % (Auto) 2.3 Baso % (Auto) 0.2 Lymph # (Auto) 1.7 [place] # (Auto) 0.5 Eos # (Auto) 0.2 Baso # (Auto) 0.02 Absolute Neuts (auto) 7.00 H pCO2 36 pO2 93.0 HCO3 24.5 ABG pH 7.44 ABG Total CO2 25.6 ABG O2 Saturation 98.9 H ABG O2 Content 16.6 ABG Base Excess 0.6 ABG Hemoglobin 12.2 ABG Carboxyhemoglobin 1.9 H POC ABG HHb (Measured) 1.1 ABG Methemoglobin 0.9 ABG O2 Capacity 16.8 Hgb O2 Saturation 96.1 FiO2 40.0 Sodium Potassium Chloride Carbon Dioxide Anion Gap BUN Creatinine Est GFR ( Amer) Est GFR (Non-Af Amer) POC Glucose (mg/dL) 118 H Random Glucose Calcium Magnesium Total Bilirubin AST ALT Alkaline Phosphatase Total Protein Albumin Globulin Albumin/Globulin Ratio 07/17/18 07/17/18 06:30 07:35 WBC RBC Hgb Hct MCV MCH MCHC RDW Plt Count MPV Neut % (Auto) Lymph % (Auto) [place] % (Auto) Eos % (Auto) Baso % (Auto) Lymph # (Auto) [place] # (Auto) Eos # (Auto) Baso # (Auto) Absolute Neuts (auto) pCO2 pO2 HCO3 ABG pH ABG Total CO2 ABG O2 Saturation ABG O2 Content ABG Base Excess ABG Hemoglobin ABG Carboxyhemoglobin POC ABG HHb (Measured) ABG Methemoglobin ABG O2 Capacity Hgb O2 Saturation FiO2 Sodium 138 Potassium 4.6 Chloride 104 Carbon Dioxide 26 Anion Gap 13 BUN 29 H Creatinine 0.7 L Est GFR ( Amer) > 60 Est GFR (Non-Af Amer) > 60 POC Glucose (mg/dL) 98 Random Glucose 105 Calcium 9.5 Magnesium 2.2 Total Bilirubin 0.6 AST 73 H ALT 91 H Alkaline Phosphatase 71 Total Protein 7.7 Albumin 3.6 Globulin 4.1 Albumin/Globulin Ratio 0.9 L Attending/Attestation - Attestation I have personally seen and examined this patient.: Yes I have fully participated in the care of the patient.: Yes I have reviewed all pertinent clinical information: Yes Notes (Text): 07/17/18 09:55 The patient was seen and examined at the bedside. Patient care was discussed with resident Medical records, lab studies, and imaging were reviewed and management issues were discussed and formulated. Agree with above treatment plans as outlined in 's note with addition of the following: sp CPR arrest \ VDRF \ Hypoxemia \ Sepsis \ PNA \ Anoxic Brain injury -hemodynamic monitoring to maintain MAP>65 -cardiology team f\u; hold BBlocker as pt bradycardic -o2 supplementation to maintain Spo2 >90 Pao2>60; pt comfortable on trach collar for >24hrs -ABG in AM reviewed -continue nebs and pulmonary toileting -continue broad spectrum Abx as per ID team and f\u cultures -f\u Bun\Cr and U\o; monitor and replace e-lites -tube feeds diet and aspiration precautions -PT\OT eval -DVT \ PUD prophylaxis CCM time 30min
[2018-07-17] MEDS: Valproic Acid 250 mg/5 ml UD Cup PO SCH ×2 (10:16→20:55)
[2018-07-17] MEDS: Meropenem IV 1 gm in NS 1 GM/50 ML BAG IVPB SCH ×2 (10:17→21:02)
--- NOTE | 2018-07-17 13:33 | PN ---
DATE: 07/17/2018 SUBJECTIVE: He is still in the intensive care unit. He is on the trach collar, off the ventilator this morning which is great. He is on Ativan, Depakene, DuoNeb, Ecotrin, Effient, heparin, Merrem IV, Protonix, Ritalin, thiamine, Transderm-Scop, vancomycin, and Zestril. PHYSICAL EXAMINATION: VITAL SIGNS: Temperature 99.7, 82 pulse, 163/87 blood pressure, 15 respiratory rate, 100% O2 sat. HEENT: Head is atraumatic, normocephalic. His eyes are open but did not follow commands. He is on trach collar. HEART: Regular rate. LUNGS: Decreased breath sounds bilaterally. ABDOMEN: Soft. EXTREMITIES: No edema. LABORATORY DATA: He has 9.4 white count, 12 hemoglobin, 36.9 hematocrit with 418 platelets. Sodium 138, potassium 4.6, BUN 29, creatinine 0.7, GFR is greater than 60, sugar is 105, calcium is 9.5, magnesium 2.2, total bili is 0.6, AST is 73, ALT is 91, alk phos 71, and total protein 7.7. ASSESSMENT AND PLAN: He is being seen by numerous doctors, Infectious Disease, clay artisan, open winder, and neurologist. We will continue with aggressive treatment and care. I am hoping that he can go to a long-term acute care once family make up their mind which one they want to go to. Ministerio Wan DO
--- NOTE | 2018-07-17 14:30 | CP.PCM.PN ---
<Nic Bae - Last Filed: 07/17/18 14:27> Subjective - Date & Time of Evaluation Date of Evaluation: 07/17/18 Time of Evaluation: 09:00 - Subjective Subjective: Nic Bae D.O. PGY-3, Internal Medicine Resident, Infectious Disease Progress Note 53-year-old male with a past medical history alcohol abuse, obesity, hypertension, and tobacco abuse who presented to [facility] for complaints of a syncopal episode. Patient was found to have an elevated troponin but refused a cardiac catheterization. Patient suffered cardiac arrest while in ultrasound, V. fib, and was subsequently taken to the [facility] with stenting of the RCA and placement of intra-aortic balloon pump. Infectious disease was consulted for sepsis. Patient was seen and examined at bedside. Continues about the same. Eyes open but no purposeful movements. Objective - Vital Signs/Intake and Output Vital Signs (last 24 hours): Temp Pulse Resp BP Pulse Ox 99.7 F H 70 15 148/94 H 98 07/17/18 07:07 07/17/18 10:14 07/17/18 07:00 07/17/18 10:14 07/17/18 07:07 Intake and Output: 07/17/18 07/17/18 06:59 18:59 Intake Total 300 Output Total 1050 Balance -750 - Medications Medications: Current Medications Albuterol/Ipratropium (Duoneb 3 Mg/0.5 Mg (3 Ml) Ud) 3 ml IH Q2H PRN PRN Reason: Shortness of Breath Last Admin: 07/08/18 16:57 Dose: 3 ml Albuterol/Ipratropium (Duoneb 3 Mg/0.5 Mg (3 Ml) Ud) 3 ml IH [id number] [facility] Last Admin: 07/17/18 13:09 Dose: 3 ml Aspirin (Ecotrin) 81 mg PO DAILY [facility] Last Admin: 07/17/18 10:15 Dose: 81 mg Heparin Sodium (Porcine) (Heparin) 5,000 units SC Q12 [facility]; Protocol Last Admin: 07/17/18 10:14 Dose: 5,000 units Meropenem (Merrem Iv 1 Gm Premix) 1 gm in 50 mls @ 100 mls/hr IVPB Q12 [facility]; Protocol Stop: 07/20/18 22:01 Last Admin: 07/17/18 10:17 Dose: 100 mls/hr Thiamine HCl 300 mg/ Sodium (Chloride) 53 mls @ 106 mls/hr IV DAILY [facility] Last Admin: 07/17/18 10:16 Dose: 106 mls/hr Vancomycin HCl (Vancomycin 1gm) 1 gm in 250 mls @ 167 mls/hr IVPB Q12H [facility]; Protocol Last Admin: 07/17/18 08:30 Dose: 167 mls/hr Lisinopril (Zestril) 5 mg PO DAILY [facility] Last Admin: 07/17/18 10:14 Dose: 5 mg Lorazepam (Ativan) 2 mg IVP Q2H PRN; Protocol PRN Reason: Anxiety Last Admin: 07/13/18 16:12 Dose: 2 mg Methylphenidate HCl (Ritalin) 5 mg PO DAILY [facility] Last Admin: 07/17/18 10:14 Dose: 5 mg Pantoprazole Sodium (Protonix Inj) 40 mg IVP DAILY [facility] Last Admin: 07/17/18 10:17 Dose: 40 mg Prasugrel (Effient) 10 mg PO DAILY [facility] Last Admin: 07/17/18 10:16 Dose: 10 mg Scopolamine (Transderm-Scop) 1 patch TD Q3D [facility] Last Admin: 07/14/18 22:00 Dose: 1 patch Valproate Sodium (Depakene Oral Soln) 250 mg PO BID [facility] Last Admin: 07/17/18 10:16 Dose: 250 mg - Labs Labs: 07/17/18 05:00 07/17/18 06:30 PT 12.7 SECONDS (9.4-12.5) H 07/08/18 11:10 INR 1.12 07/08/18 11:10 APTT 27.6 Seconds (26.9-38.3) 07/08/18 11:10 - Constitutional Appears: No Acute Distress, trached - Head Exam Head Exam: NORMOCEPHALIC - Eye Exam Eye Exam: absent: Scleral icterus - ENT Exam ENT Exam: Mucous Membranes Moist - Neck Exam Neck exam: Positive for: Normal Inspection - Respiratory Exam Respiratory Exam: Clear to Auscultation Bilateral. absent: Rales, Rhonchi, Wheezes - Cardiovascular Exam Cardiovascular Exam: RRR, +S1, +S2. absent: Gallop, Rubs - GI/Abdominal Exam GI & Abdominal Exam: Normal Bowel Sounds, Soft. absent: Distended, Tenderness - Extremities Exam Extremities exam: Negative for: calf tenderness, pedal edema - Neurological Exam Additional comments: appears awake but is not alert - Skin Skin Exam: Dry, Warm Assessment and Plan - Assessment and Plan (Free Text) Assessment: 53-year-old male with a past medical history alcohol abuse, obesity, hypertension, and tobacco abuse who presented to [facility] for complaints of a syncopal episode. Patient was found to have an elevated troponin but refused a cardiac catheterization. Patient suffered cardiac arrest while in ultrasound, V. fib, and was subsequently taken to the [facility] with stenting of the RCA and placement of intra-aortic balloon pump. Infectious disease was consulted for sepsis. Plan: Sepsis likely 2/2 HAP with Klebsiella in trach asp Sepsis from aspiration pneumonia with MSSA Ventilator dependent respiratory failure Anoxic brain injury Cardiac arrest CAD status post PCI Hypertension Tobacco abuse Afebrile No leukocytosis New repeat BCx negative 2/2 day 1 Continue meropenem day 5, vancomycin day 3 Subspecialists notes reviewed and appreciated Prognosis remains guarded We will follow alongside you Patient was seen and examined and case to be discussed with attending physician. Thank you for the pleasure of participating in the care of this interesting patient <Colton Michelle - Last Filed: 07/17/18 16:24> Objective - Vital Signs/Intake and Output Vital Signs (last 24 hours): Temp Pulse Resp BP Pulse Ox 99.7 F H 70 15 148/94 H 98 07/17/18 07:07 07/17/18 10:14 07/17/18 07:00 07/17/18 10:14 07/17/18 07:07 Intake and Output: 07/17/18 07/17/18 06:59 18:59 Intake Total 300 Output Total 1050 Balance -750 - Medications Medications: Current Medications Albuterol/Ipratropium (Duoneb 3 Mg/0.5 Mg (3 Ml) Ud) 3 ml IH Q2H PRN PRN Reason: Shortness of Breath Last Admin: 07/08/18 16:57 Dose: 3 ml Albuterol/Ipratropium (Duoneb 3 Mg/0.5 Mg (3 Ml) Ud) 3 ml IH [id number] [facility] Last Admin: 07/17/18 13:09 Dose: 3 ml Aspirin (Ecotrin) 81 mg PO DAILY [facility] Last Admin: 07/17/18 10:15 Dose: 81 mg Heparin Sodium (Porcine) (Heparin) 5,000 units SC Q12 [facility]; Protocol Last Admin: 07/17/18 10:14 Dose: 5,000 units Meropenem (Merrem Iv 1 Gm Premix) 1 gm in 50 mls @ 100 mls/hr IVPB Q12 [facility]; Protocol Stop: 07/20/18 22:01 Last Admin: 07/17/18 10:17 Dose: 100 mls/hr Thiamine HCl 300 mg/ Sodium (Chloride) 53 mls @ 106 mls/hr IV DAILY [facility] Last Admin: 07/17/18 10:16 Dose: 106 mls/hr Vancomycin HCl (Vancomycin 1gm) 1 gm in 250 mls @ 167 mls/hr IVPB Q12H [facility]; Protocol Last Admin: 07/17/18 08:30 Dose: 167 mls/hr Lisinopril (Zestril) 5 mg PO DAILY [facility] Last Admin: 07/17/18 10:14 Dose: 5 mg Lorazepam (Ativan) 2 mg IVP Q2H PRN; Protocol PRN Reason: Anxiety Last Admin: 07/13/18 16:12 Dose: 2 mg Methylphenidate HCl (Ritalin) 5 mg PO DAILY [facility] Last Admin: 07/17/18 10:14 Dose: 5 mg Pantoprazole Sodium (Protonix Inj) 40 mg IVP DAILY [facility] Last Admin: 07/17/18 10:17 Dose: 40 mg Prasugrel (Effient) 10 mg PO DAILY [facility] Last Admin: 07/17/18 10:16 Dose: 10 mg Scopolamine (Transderm-Scop) 1 patch TD Q3D [facility] Last Admin: 07/14/18 22:00 Dose: 1 patch Valproate Sodium (Depakene Oral Soln) 250 mg PO BID [facility] Last Admin: 07/17/18 10:16 Dose: 250 mg - Labs Labs: 07/17/18 05:00 07/17/18 06:30 PT 12.7 SECONDS (9.4-12.5) H 07/08/18 11:10 INR 1.12 07/08/18 11:10 APTT 27.6 Seconds (26.9-38.3) 07/08/18 11:10 Attending/Attestation - Attestation I have personally seen and examined this patient.: Yes I have fully participated in the care of the patient.: Yes I have reviewed all pertinent clinical information, including history, physical exam and plan: Yes
--- NOTE | 2018-07-17 14:36 | PN ---
DATE: 07/17/2018 CARDIOLOGY FOLLOWUP SUBJECTIVE: The patient is currently off the ventilator. PHYSICAL EXAMINATION: VITAL SIGNS: Stable. NECK: Negative JVD. LUNGS: Without rales. HEART: S1, S2. EXTREMITIES: Without edema. NEUROLOGIC: The patient is unchanged. LABORATORY DATA: Hemoglobin is 12. Chemistries, BUN and creatinine are 29 and 0.7. IMPRESSION: 1. Anoxic encephalopathy. 2. Status post cardiogenic shock. 3. Status post emergency percutaneous transluminal coronary angioplasty for an acute inferior wall as well as a right ventricular infarct. 4. Status post ventricular tachycardia arrest. Given these findings, the patient is hemodynamically stable. His mental status, we will make long-term care his main issue now. Devonte Patel MD
[2018-07-18] MEDS: Albuterol-Ipratrop 3 mg / 0.5 (3 ml) UD IH SCH ×4 (01:30→19:48)
[2018-07-18 05:48] LABS: BASO # 0.03 K/mm3 (0.0-2.0); BASO % 0.4 % (0.0-3.0); EOS # 0.2 (0.0-0.7); EOS % 2.9 % (1.5-5.0); HEMOGLOBIN 12.4 g/dL (14.0-18.0); LYMPH # 1.3 (1.2-3.4); MEAN CORPUSCULAR HEMOGLOBIN 31.1 pg (25.0-35.0); MEAN CORPUSCULAR HGB CONC 33.4 g/dl (31.0-37.0); MEAN PLATELET VOLUME 10.1 fl (7.0-11.0); MONO # 0.6 (0.1-0.6); MONO % 7.7 % (1.0-6.0); RBC 3.99 10^6/uL (3.5-6.1); RED CELL DISTRIBUTION WIDTH 13.5 % (11.5-14.5); WHITE BLOOD COUNT 7.9 10^3/uL (4.5-11.0)
[2018-07-18 05:52] LABS: ALB/GLOB RATIO 1.1 (1.1-1.8); ALT/SGPT 74 U/L (7-56); AST/SGOT 73 U/L (17-59); BLOOD UREA NITROGEN 33 mg/dL (7-21); CALCIUM 9.5 mg/dL (8.4-10.5); GFR NON-AFRICAN AMERICAN > 60
[2018-07-18 06:49] LABS: ARTERIAL BLOOD GAS HCO3 22.1 mmol/L (21-28); ARTERIAL BLOOD GAS HEMOGLOBIN 12.8 g/dL (11.7-17.4); ARTERIAL BLOOD GAS O2 CAPACITY 17.5 mL/dl (16-24); ARTERIAL BLOOD GAS O2 CONTENT 17.1 ML/dl (15-23); ARTERIAL BLOOD GAS O2 SAT 97.5 % (95-98); ARTERIAL BLOOD GAS PCO2 34 mm/Hg (35-45); ARTERIAL BLOOD GAS PH 7.42 (7.35-7.45); ARTERIAL BLOOD GAS TCO2 23.1 mmol.L (22-28)
[2018-07-18] MEDS: Vancomycin 1gm in NS 250ml 1 GM/250 ML BAG IVPB SCH ×2 (09:27→20:32)
[2018-07-18] MEDS: Valproic Acid 250 mg/5 ml UD Cup PO SCH (09:34)
--- NOTE | 2018-07-18 11:39 | CP.PCM.PN ---
Subjective - Date & Time of Evaluation Date of Evaluation: 07/18/18 Time of Evaluation: 09:10 - Subjective Subjective: Comfortable in bed, no fevers, not in distress. Objective - Vital Signs/Intake and Output Vital Signs (last 24 hours): Temp Pulse Resp BP Pulse Ox 98.9 F 67 15 149/83 89 L 07/18/18 04:00 07/18/18 05:49 07/18/18 01:00 07/18/18 02:00 07/18/18 02:00 Intake and Output: 07/18/18 07/18/18 06:59 18:59 Intake Total 1220 Output Total 750 Balance 470 - Medications Medications: Current Medications Albuterol/Ipratropium (Duoneb 3 Mg/0.5 Mg (3 Ml) Ud) 3 ml IH Q2H PRN PRN Reason: Shortness of Breath Last Admin: 07/08/18 16:57 Dose: 3 ml Albuterol/Ipratropium (Duoneb 3 Mg/0.5 Mg (3 Ml) Ud) 3 ml IH [id number] [facility] Last Admin: 07/18/18 01:30 Dose: 3 ml Aspirin (Ecotrin) 81 mg PO DAILY [facility] Last Admin: 07/17/18 10:15 Dose: 81 mg Heparin Sodium (Porcine) (Heparin) 5,000 units SC Q12 [facility]; Protocol Last Admin: 07/17/18 21:02 Dose: 5,000 units Meropenem (Merrem Iv 1 Gm Premix) 1 gm in 50 mls @ 100 mls/hr IVPB Q12 [facility]; Protocol Stop: 07/20/18 22:01 Last Admin: 07/17/18 21:02 Dose: 100 mls/hr Thiamine HCl 300 mg/ Sodium (Chloride) 53 mls @ 106 mls/hr IV DAILY [facility] Last Admin: 07/17/18 10:16 Dose: 106 mls/hr Vancomycin HCl (Vancomycin 1gm) 1 gm in 250 mls @ 167 mls/hr IVPB Q12H [facility]; Protocol Last Admin: 07/17/18 21:03 Dose: 167 mls/hr Lisinopril (Zestril) 5 mg PO DAILY [facility] Last Admin: 07/17/18 10:14 Dose: 5 mg Lorazepam (Ativan) 2 mg IVP Q2H PRN; Protocol PRN Reason: Anxiety Last Admin: 07/13/18 16:12 Dose: 2 mg Methylphenidate HCl (Ritalin) 5 mg PO DAILY [facility] Last Admin: 07/17/18 10:14 Dose: 5 mg Pantoprazole Sodium (Protonix Inj) 40 mg IVP DAILY [facility] Last Admin: 07/17/18 10:17 Dose: 40 mg Prasugrel (Effient) 10 mg PO DAILY [facility] Last Admin: 07/17/18 10:16 Dose: 10 mg Scopolamine (Transderm-Scop) 1 patch TD Q3D [facility] Last Admin: 07/17/18 21:02 Dose: 1 patch Valproate Sodium (Depakene Oral Soln) 250 mg PO BID [facility] Last Admin: 07/17/18 20:55 Dose: 250 mg - Labs Labs: 07/18/18 05:00 07/18/18 05:00 PT 12.7 SECONDS (9.4-12.5) H 07/08/18 11:10 INR 1.12 07/08/18 11:10 APTT 27.6 Seconds (26.9-38.3) 07/08/18 11:10 - Constitutional Appears: Non-toxic, Chronically Ill - Head Exam Head Exam: NORMAL INSPECTION - Respiratory Exam Respiratory Exam: Decreased Breath Sounds - Cardiovascular Exam Cardiovascular Exam: +S1, +S2 - GI/Abdominal Exam GI & Abdominal Exam: Soft. absent: Tenderness Assessment and Plan - Assessment and Plan (Free Text) Plan: Assessment Sepsis due to hospital-acquired aspiration pneumonia with Klebsiella and MSSA history of alcohol abuse S/P cardiac arrest HTN CAD S/P PCI tobacco abuse Plan continue Vancomycin day 4 and Merrem day 6 - as long as patient continues to improve clinically, may consider discontinuing antibiotics in the next 24-48 hours
[2018-07-18] MEDS: Meropenem IV 1 gm in NS 1 GM/50 ML BAG IVPB SCH ×2 (15:59→21:51)
--- NOTE | 2018-07-18 16:09 | PN ---
DATE: 07/18/2018 SUBJECTIVE: He is in the intensive care unit. He has a trach, but he is off the vent today. He is on Ativan, Depakene, DuoNebs, Ecotrin, Effient, heparin, Merrem IV, Protonix, Ritalin, thiamine, Transderm-Scop, vancomycin, and Zestril. He is not alert at this time. PHYSICAL EXAMINATION: VITAL SIGNS: He has a 98.9 temp, 84 pulse, 126/84 blood pressure, 89% O2 sat up to 95% O2 sat. HEENT: Head is atraumatic, normocephalic. HEART: Regular rate. LUNGS: Decreased breath sounds, but clear. ABDOMEN: Soft. EXTREMITIES: No edema. LABORATORY DATA: 7.9 white count, 12.4 hemoglobin, 37.1 hematocrit with 435 platelets. 136 sodium, potassium 4.7, BUN 33, creatinine 0.8, GFR is greater than 60, sugar is 141, magnesium 2.1, total bili is 0.5, AST is 73, ALT is 74, alk phos 75, and total protein 7.8. ASSESSMENT AND PLAN: He is being seen by numerous doctors, Infectious Disease, Cardiology, agriculture consultant, and neurologist. He had anoxic encephalopathy, status post cardiogenic shock, status post emergency percutaneous transluminal coronary angioplasty, acute respiratory failure. We are hoping to get him to an LTAC for further treatment and long-term care and see if we could continue the treatment there before hopefully that he will wake up. We will check his labs tomorrow. Ministerio Wan DO
[2018-07-19] MEDS: Albuterol-Ipratrop 3 mg / 0.5 (3 ml) UD IH SCH ×3 (02:37→13:48)
[2018-07-19 05:42] LABS: BASO # 0.04 K/mm3 (0.0-2.0); BASO % 0.4 % (0.0-3.0); EOS # 0.4 (0.0-0.7); EOS % 4.3 % (1.5-5.0); HEMOGLOBIN 12.1 g/dL (14.0-18.0); LYMPH % 21.1 % (22.0-35.0); MEAN CELL VOLUME 93.3 fl (80.0-105.0); MEAN CORPUSCULAR HEMOGLOBIN 30.3 pg (25.0-35.0); MEAN CORPUSCULAR HGB CONC 32.4 g/dl (31.0-37.0); MEAN PLATELET VOLUME 10.3 fl (7.0-11.0); MONO # 0.4 (0.1-0.6); MONO % 4.6 % (1.0-6.0); RED CELL DISTRIBUTION WIDTH 13.6 % (11.5-14.5); WHITE BLOOD COUNT 9.3 10^3/uL (4.5-11.0)
[2018-07-19] MEDS: Meropenem IV 1 gm in NS 1 GM/50 ML BAG IVPB SCH ×3 (05:43→22:15)
[2018-07-19 05:46] LABS: ARTERIAL BLOOD GAS HCO3 24.3 mmol/L (21-28); ARTERIAL BLOOD GAS O2 CAPACITY 16.5 mL/dl (16-24); ARTERIAL BLOOD GAS O2 CONTENT 16.4 ML/dl (15-23); ARTERIAL BLOOD GAS O2 SAT 99.4 % (95-98); ARTERIAL BLOOD GAS PCO2 35 mm/Hg (35-45); ARTERIAL BLOOD GAS PH 7.45 (7.35-7.45); ARTERIAL BLOOD GAS TCO2 25.4 mmol.L (22-28)
[2018-07-19 05:59] LABS: ALBUMIN 3.9 g/dL (3.0-4.8); ALT/SGPT 62 U/L (7-56); AST/SGOT 79 U/L (17-59); BLOOD UREA NITROGEN 31 mg/dL (7-21); CALCIUM 9.5 mg/dL (8.4-10.5); GFR NON-AFRICAN AMERICAN > 60
[2018-07-19] MEDS: Vancomycin 1gm in NS 250ml 1 GM/250 ML BAG IVPB SCH ×2 (10:25→20:16)
--- NOTE | 2018-07-19 10:28 | CP.PCM.PN ---
Subjective - Date & Time of Evaluation Date of Evaluation: 07/19/18 Time of Evaluation: 08:30 - Subjective Subjective: Comfortable in bed, no fevers, not in distress. Objective - Vital Signs/Intake and Output Vital Signs (last 24 hours): Temp Pulse Resp BP Pulse Ox 98.9 F 84 15 126/84 89 L 07/18/18 04:00 07/18/18 09:32 07/18/18 01:00 07/18/18 09:32 07/18/18 02:00 Intake and Output: 07/18/18 07/18/18 06:59 18:59 Intake Total 1220 Output Total 750 Balance 470 - Medications Medications: Current Medications Albuterol/Ipratropium (Duoneb 3 Mg/0.5 Mg (3 Ml) Ud) 3 ml IH Q2H PRN PRN Reason: Shortness of Breath Last Admin: 07/08/18 16:57 Dose: 3 ml Albuterol/Ipratropium (Duoneb 3 Mg/0.5 Mg (3 Ml) Ud) 3 ml IH [id number] [facility] Last Admin: 07/18/18 07:58 Dose: 3 ml Aspirin (Ecotrin) 81 mg PO DAILY [facility] Last Admin: 07/18/18 09:32 Dose: 81 mg Heparin Sodium (Porcine) (Heparin) 5,000 units SC Q12 [facility]; Protocol Last Admin: 07/18/18 09:32 Dose: 5,000 units Thiamine HCl 300 mg/ Sodium (Chloride) 53 mls @ 106 mls/hr IV DAILY [facility] Last Admin: 07/17/18 10:16 Dose: 106 mls/hr Vancomycin HCl (Vancomycin 1gm) 1 gm in 250 mls @ 167 mls/hr IVPB Q12H [facility]; Protocol Last Admin: 07/18/18 09:27 Dose: 167 mls/hr Meropenem (Merrem Iv 1 Gm Premix) 1 gm in 50 mls @ 100 mls/hr IVPB Q8 [facility]; Protocol Stop: 07/25/18 14:01 Lisinopril (Zestril) 5 mg PO DAILY [facility] Last Admin: 07/18/18 09:32 Dose: 5 mg Lorazepam (Ativan) 2 mg IVP Q2H PRN; Protocol PRN Reason: Anxiety Last Admin: 07/13/18 16:12 Dose: 2 mg Methylphenidate HCl (Ritalin) 5 mg PO DAILY [facility] Last Admin: 07/18/18 09:33 Dose: 5 mg Pantoprazole Sodium (Protonix Inj) 40 mg IVP DAILY [facility] Last Admin: 07/18/18 09:38 Dose: 40 mg Prasugrel (Effient) 10 mg PO DAILY [facility] Last Admin: 07/18/18 09:32 Dose: 10 mg Scopolamine (Transderm-Scop) 1 patch TD Q3D [facility] Last Admin: 07/17/18 21:02 Dose: 1 patch Valproate Sodium (Depakene Oral Soln) 250 mg PO BID [facility] Last Admin: 07/18/18 09:34 Dose: 250 mg - Labs Labs: 07/18/18 05:00 07/18/18 05:00 PT 12.7 SECONDS (9.4-12.5) H 07/08/18 11:10 INR 1.12 07/08/18 11:10 APTT 27.6 Seconds (26.9-38.3) 07/08/18 11:10 - Constitutional Appears: Chronically Ill - Head Exam Head Exam: NORMAL INSPECTION - ENT Exam Additional comments: tracheostomy tube in place - Respiratory Exam Respiratory Exam: Decreased Breath Sounds - Cardiovascular Exam Cardiovascular Exam: +S1, +S2 - GI/Abdominal Exam GI & Abdominal Exam: Soft. absent: Tenderness Assessment and Plan - Assessment and Plan (Free Text) Plan: Assessment Sepsis due to hospital-acquired aspiration pneumonia with Klebsiella and MSSA history of alcohol abuse S/P cardiac arrest HTN CAD S/P PCI tobacco abuse Plan continue Vancomycin day 5 and Merrem day 7 - as long as patient continues to improve clinically, may consider discontinuing antibiotics in the next 24 hours
--- NOTE | 2018-07-19 10:33 | CT ---
Date of service: 07/18/2018 PROCEDURE: CT HEAD WITHOUT CONTRAST. HISTORY: follow up encephalopathy COMPARISON: Unenhanced head CTs 07/03/2018 as well as 11/29/2017. TECHNIQUE: Axial computed tomography images were obtained through the head/brain without intravenous contrast. Radiation dose: Total exam DLP = 1038.12 mGy-cm. This CT exam was performed using one or more of the following dose reduction techniques: Automated exposure control, adjustment of the mA and/or kV according to patient size, and/or use of iterative reconstruction technique. FINDINGS: HEMORRHAGE: No intracranial hemorrhage. BRAIN: Volume loss is improved throughout the sulcal pattern of the brain as well as overall ventricular volume closest to its initial appearance prior to 07/03/2018 when compared to distant head CT from 11/29/2017. Further, there is slightly improved corticomedullary differentiation which is the site of diminished edema. No suspicious extra-axial collection is appreciated and the midline brain anatomy appears within normal limits. VENTRICLES: Unremarkable. No hydrocephalus. CALVARIUM: Unremarkable. PARANASAL SINUSES: Unremarkable as visualized. No significant inflammatory changes. MASTOID AIR CELLS: Unremarkable as visualized. No inflammatory changes. OTHER FINDINGS: None. IMPRESSION: Significantly improved pattern of anoxic in cephalopathy with diminished cerebral edema and generalized mass effect evident. No internal hemorrhage or suspicious extra-axial collection appreciable. No focal edema pattern evident.
[2018-07-19] MEDS: Valproic Acid 250 mg/5 ml UD Cup PO SCH ×2 (10:53→17:36)
--- NOTE | 2018-07-19 13:12 | PN ---
DATE: 07/19/2018 SUBJECTIVE: He is in the Intensive Care Unit. He is off the ventilator. He is straight. He has got a feeding tube. MEDICATIONS: He is on Ativan, Depakene, DuoNeb, Ecotrin, heparin, Merrem, Protonix, Ritalin, thiamine, Transderm-Scop, vancomycin, Xanax, and Zestril. He does open his eyes from time to time. He has moved his arms and legs from time to time. He does open his eyes and stare, nonverbal. PHYSICAL EXAMINATION: VITAL SIGNS: He has 98 temperature, 74 pulse, 120/72 blood pressure, 15 respiratory rate, and 97% O2 saturation on trach collar. HEENT: Head is atraumatic and normocephalic. HEART: Regular rate. LUNGS: Decreased breath sounds. ABDOMEN: Soft and obese. EXTREMITIES: No edema. LABORATORY DATA: He has a 9.3 white count, 12.1 hemoglobin, 37.3 hematocrit with a 440 platelets. He has a 137 sodium, potassium 4.8, BUN 31, creatinine 0.7, GFR is greater than 60, sugar is 102, calcium is 9.5, magnesium is 2.2, total bili is 0.5, AST is 79, ALT is 62, alk phos 72, and total protein 7.6. Urine; negative leukocytes. Few, if any, bacteria which is much better. ASSESSMENT AND PLAN: He is being seen by Infectious Disease and Cardiology, order takers supervisor. I will call the neurologist in because his head CT scan which was horrible when he first came in, shows significant improved pattern of anoxic encephalopathy but diminished cerebral edema and generalized mass effect evident. No internal hemorrhages or suspicious extra-axial collection appreciated, but there is some improvement. I felt that he needs to go to an long-term acute care where he has a chance to improve, maybe an long-term acute care where they can do further neurological improvement on him. He is by any means, but is see an improvement in the CAT scan of the head. We will continue with aggressive treatment and care, and hopefully this week coming, we will get him to an long-term acute care, nearest family. Ministerio Wan DO MTDD
[2018-07-20] MEDS: Albuterol-Ipratrop 3 mg / 0.5 (3 ml) UD IH PRN ×2 (01:30→08:27)
[2018-07-20] MEDS: Meropenem IV 1 gm in NS 1 GM/50 ML BAG IVPB SCH ×2 (05:06→13:42)
[2018-07-20 05:24] LABS: ARTERIAL BLOOD GAS HCO3 22.8 mmol/L (21-28); ARTERIAL BLOOD GAS HEMOGLOBIN 12.4 g/dL (11.7-17.4); ARTERIAL BLOOD GAS O2 CONTENT 16.5 ML/dl (15-23); ARTERIAL BLOOD GAS O2 SAT 97.3 % (95-98); ARTERIAL BLOOD GAS PCO2 32 mm/Hg (35-45); ARTERIAL BLOOD GAS PH 7.46 (7.35-7.45); ARTERIAL BLOOD GAS TCO2 23.8 mmol.L (22-28)
[2018-07-20 06:54] LABS: BASO # 0.04 K/mm3 (0.0-2.0); BASO % 0.4 % (0.0-3.0); EOS # 0.4 (0.0-0.7); HEMOGLOBIN 13.2 g/dL (14.0-18.0); LYMPH # 1.8 (1.2-3.4); LYMPH % 19.4 % (22.0-35.0); MEAN CELL VOLUME 93.3 fl (80.0-105.0); MEAN CORPUSCULAR HEMOGLOBIN 30.4 pg (25.0-35.0); MEAN CORPUSCULAR HGB CONC 32.6 g/dl (31.0-37.0); MEAN PLATELET VOLUME 10.2 fl (7.0-11.0); MONO # 0.5 (0.1-0.6); MONO % 5.5 % (1.0-6.0); RBC 4.34 10^6/uL (3.5-6.1); RED CELL DISTRIBUTION WIDTH 13.6 % (11.5-14.5); WHITE BLOOD COUNT 9.3 10^3/uL (4.5-11.0)
[2018-07-20 07:14] LABS: ALBUMIN 3.9 g/dL (3.0-4.8); ALT/SGPT 56 U/L (7-56); AST/SGOT 69 U/L (17-59); BLOOD UREA NITROGEN 26 mg/dL (7-21); CALCIUM 9.6 mg/dL (8.4-10.5); GFR NON-AFRICAN AMERICAN > 60
[2018-07-20] MEDS: Vancomycin 1gm in NS 250ml 1 GM/250 ML BAG IVPB SCH (07:53)
[2018-07-20] MEDS: Valproic Acid 250 mg/5 ml UD Cup PO SCH ×2 (09:56→17:41)
--- NOTE | 2018-07-20 11:47 | PN ---
DATE: 07/20/2018 SUBJECTIVE: I saw him in the Intensive Care Unit. He is alert. His eyes are opened. He is not staring at me. He is just staring. He is moving his head a little bit. He is on trach collar, no ventilation on the ventilator. He is moving his extremities. His CAT scan of the head was improved. He needs to go to an LTAC for further care. MEDICATIONS: He is on Ativan, Depakene, DuoNeb, Ecotrin, heparin, Merrem, Protonix, Ritalin, thiamine, Transderm-Scop, vancomycin, Xanax, and Zestril. PHYSICAL EXAMINATION: VITAL SIGNS: He has a 97.6 temp, 136/88 blood pressure, 29 respiratory rate and 95% O2 sat on trach collar. HEENT: Head is atraumatic and normocephalic. HEART: Regular rate. LUNGS: Decreased breath sounds, but clear. He has got tracheostomy in place collar of oxygen. ABDOMEN Soft and nontender. Positive bowel sounds. EXTREMITIES: No edema. He can move them, but does not look like he has any purpose to his movements. LABORATORY DATA: A 9.3 white count, 13.2 hemoglobin, 40.5 hematocrit with 462 platelets. Sodium 137, potassium 4.4, BUN 26, creatinine 0.8, GFR is greater than 60, sugar is 101, calcium is 9.6, total bili is 0.6, AST is 69, ALT is 66, alk phos 92 and total protein 7.9. ASSESSMENT AND PLAN: We continue with aggressive treatment and care. He is being seen by Infectious Disease, Cardiology and Reservoir Engineering Manager. He is here for anoxic encephalopathy, status post emergency percutaneous trans transluminal coronary angioplasty and he is on respiratory failure, trach and trach collar await termite control representative acute care. Ministerio Wan DO MTDD
--- NOTE | 2018-07-20 15:25 | PN ---
DATE: 07/20/2018 SUBJECTIVE: The patient is more alert today, on a trach collar. There is purposeful movement, however, does not necessarily respond to verbal conversation at any time. PHYSICAL EXAMINATION: VITAL SIGNS: Blood pressure varies from 163 to 178 systolic, heart rate is in the 90s. NECK: Negative JVD. LUNGS: Without rales. HEART: S1, S2. EXTREMITIES: Without edema. LABORATORY DATA: Hemoglobin is 13.2. Chemistries, BUN and creatinine 28 and 0.8. IMPRESSION: 1. Status post cardiogenic shock. 2. Status post respiratory failure. 3. Status post acute inferior wall myocardial infarction with right ventricle infarct. 4. Anoxic encephalopathy. 5. Hypertension. PLAN: Given these findings, we will increase his lisinopril to 10 mg. We will continue his aspirin and Effient. Devonte Patel MD
--- NOTE | 2018-07-20 15:42 | PN ---
DATE: 07/20/2018 NEUROLOGY FOLLOWUP CHIEF COMPLAINT: Followup for status post hypoxic brain injury. SUBJECTIVE: The patient is seen and examined at the bedside, off sedation. He is moving upper extremities. Eyes are opened, does not track as much, but responses to noxious stimulus. His CAT scan of the head showed reduced cerebral edema and improvement of his hypoxic brain insult. He is awaiting transfer to LTAC. He has a tracheostomy and PEG currently. He is on Ritalin via PEG 5 mg p.o. daily, which is helping with his neurocognitive aspect of his injury. PAST MEDICAL HISTORY: Obesity, polysubstance abuse, EtOH abuse, hypertension, and smoker. ALLERGIES: NO KNOWN DRUG ALLERGIES. SOCIAL HISTORY: No illicit drugs or smoking or polysubstance abuse, and EtOH abuse. REVIEW OF SYSTEMS: A 14-point review of systems could not be obtain due to the patient's underlying mental status. FAMILY HISTORY: Noncontributory. MEDICATIONS: Reviewed by nurses' reconciliation sheet. LABORATORY DATA: Sodium is 137, potassium 4.4, chloride 102, carbon dioxide 26, BUN of 26, creatinine 0.8, and random glucose 101. PHYSICAL EXAMINATION GENERAL: The patient is diaphoretic. VITAL SIGNS: Temperature afebrile, pulse rate of 95, blood pressure 163/92, respiratory rate 18 and oxygen saturation 95% via room air. HEENT: Atraumatic and normocephalic. PERRLA. Pupils are reactive to light. NECK: Supple. No JVD. No adenopathy noted. Has a trach collar. HEART: S1 and S2, normal rate and rhythm. No murmurs, rubs or gallops. ABDOMEN: Soft, nontender, and nondistended. Bowel sounds present. LUNGS: Clear to auscultation. No adventitious sounds. EXTREMITIES: No clubbing. No cyanosis. Peripheral pulses 2+ bilaterally. NEUROLOGIC: The patient is on a trach and PEG. His eyes are opened, does not track much, but is spontaneous and moving his upper extremities now and doing hand movements in the air. He does not follow simple commands at this point. His speech is difficult to assess at this time. Cranial nerves II through XII intact. Motor exam; spontaneous movements in all the extremities especially upper extremities. Sensory exam; withdraws to localized noxious stimulus. Toes are downgoing bilaterally. DTRs are 2+ throughout. Coordination and gait deferred for now. IMPRESSION: A 53-year-old male with history of history of obesity, polysubstance abuse and ethanol abuse, hypertension, smoker, came in status post syncopal events status post ventricular fibrillation, status post cardiac arrest status post percutaneous coronary intervention in the right coronary artery status post stent. did not show CAT of the head showing diffused cerebral edema consistent with hypoxic brain injury. Repeat CAT scan on 07/18/2018 showed improvement of his cerebral edema and hypoxic brain injury. His last EEG showed severe bilateral cerebral dysfunction but no evidence of any epileptiform activity. Overall at this time, this patient has hypoxic brain injury and it seems to be improving cognitively with Ritalin and is more awake than usual. RECOMMENDATIONS: At this time; 1. No sedative medications. 2. Thiamine 300 mg IV every day. 3. Continue Ritalin 5 mg p.o. daily via PEG for neurocognition.. 4. Transfer to LTAC when bed available and monitor electrolytes and correct accordingly. 5. Keep systolic blood pressure between 120s to 130s systolic and diastolic is in the 80s and avoid hypotensive events. 6. detrimental the patient's overall health and continue current and present medical management. Thank you for this consult. Tyson King MD
--- NOTE | 2018-07-21 02:14 | PN ---
DATE: 07/20/2018 SUBJECTIVE: The patient is in bed in the ICU, was seen earlier today in room 129, bed 6. No fevers or chills. PHYSICAL EXAMINATION VITAL SIGNS: Temperature is 99.6, blood pressure of 143/100, respiratory rate of 19. The patient is on a tracheostomy collar and heart rate of 96. HEENT: Unremarkable. NECK: Supple. LUNGS: Decreased breath sounds. HEART: Normal S1, S2. ABDOMEN: Soft. LABORATORY DATA: Reveals a white count of 9.3, hemoglobin of 13, platelets of 462. BUN of 26, creatinine of 0.8. Microbiology is reviewed. Blood cultures are negative. MEDICATIONS: Review of orders reveals the patient to be on meropenem and Solu-Medrol. ASSESSMENT AND PLAN: A 53-year-old male who I had seen earlier today in room 129, bed 6 with sepsis due to healthcare-associated pneumonia with Klebsiella and Methicillin-sensitive Staphylococcus aureus, history of alcohol abuse status post cardiac arrest, hypertension and coronary artery disease on vancomycin and meropenem, day number 8 of meropenem. We will discontinue the meropenem and follow the patient off of antibiotics. The procalcitonin is less than 0.05. Overall prognosis is quite poor. Colton Michelle MD
[2018-07-21 06:57] LABS: BASO # 0.03 K/mm3 (0.0-2.0); BASO % 0.3 % (0.0-3.0); EOS # 0.2 (0.0-0.7); EOS % 2.4 % (1.5-5.0); HEMOGLOBIN 13.3 g/dL (14.0-18.0); LYMPH # 1.8 (1.2-3.4); LYMPH % 18.2 % (22.0-35.0); MEAN CELL VOLUME 92.9 fl (80.0-105.0); MEAN CORPUSCULAR HEMOGLOBIN 30.5 pg (25.0-35.0); MEAN CORPUSCULAR HGB CONC 32.8 g/dl (31.0-37.0); MEAN PLATELET VOLUME 10.2 fl (7.0-11.0); MONO # 0.4 (0.1-0.6); MONO % 4.4 % (1.0-6.0); RBC 4.36 10^6/uL (3.5-6.1); RED CELL DISTRIBUTION WIDTH 13.5 % (11.5-14.5); WHITE BLOOD COUNT 9.7 10^3/uL (4.5-11.0)
[2018-07-21 06:59] LABS: ALB/GLOB RATIO 1.1 (1.1-1.8); ALBUMIN 4.1 g/dL (3.0-4.8); ALT/SGPT 49 U/L (7-56); AST/SGOT 71 U/L (17-59); BLOOD UREA NITROGEN 31 mg/dL (7-21); CALCIUM 9.5 mg/dL (8.4-10.5); GFR NON-AFRICAN AMERICAN > 60
--- NOTE | 2018-07-21 08:46 | CP.PCM.PN ---
Subjective - Date & Time of Evaluation Date of Evaluation: 07/21/18 Time of Evaluation: 06:00 - Subjective Subjective: TO BE DICTATED. restraint renewal. Objective - Vital Signs/Intake and Output Vital Signs (last 24 hours): Temp Pulse Resp BP Pulse Ox 99.6 F 97 H 52 H 143/103 H 86 L 07/20/18 20:00 07/20/18 22:20 07/20/18 22:20 07/20/18 22:02 07/20/18 21:00 Intake and Output: 07/21/18 07/21/18 06:59 18:59 Output Total 300 Balance -300 - Medications Medications: Current Medications Albuterol/Ipratropium (Duoneb 3 Mg/0.5 Mg (3 Ml) Ud) 3 ml IH Q2H PRN PRN Reason: Shortness of Breath Last Admin: 07/20/18 08:27 Dose: 3 ml Alprazolam (Xanax) 0.25 mg PO TID PRN; Protocol PRN Reason: Agitation Stop: 07/25/18 16:03 Aspirin (Ecotrin) 81 mg PO DAILY [facility] Last Admin: 07/20/18 09:56 Dose: 81 mg Atorvastatin Calcium (Lipitor) 40 mg PO DIN [facility] Last Admin: 07/20/18 17:41 Dose: 40 mg Heparin Sodium (Porcine) (Heparin) 5,000 units SC Q12 [facility]; Protocol Last Admin: 07/20/18 22:50 Dose: 5,000 units Thiamine HCl 300 mg/ Sodium (Chloride) 53 mls @ 106 mls/hr IV DAILY [facility] Last Admin: 07/20/18 09:53 Dose: 106 mls/hr Lisinopril (Zestril) 5 mg PO DAILY [facility] Last Admin: 07/20/18 09:56 Dose: 5 mg Lorazepam (Ativan) 2 mg IVP Q2H PRN; Protocol PRN Reason: Anxiety Last Admin: 07/18/18 16:02 Dose: 2 mg Methylphenidate HCl (Ritalin) 5 mg PO DAILY [facility] Last Admin: 07/20/18 09:55 Dose: 5 mg Pantoprazole Sodium (Protonix Inj) 40 mg IVP DAILY [facility] Last Admin: 07/20/18 09:56 Dose: 40 mg Prasugrel (Effient) 10 mg PO DAILY [facility] Scopolamine (Transderm-Scop) 1 patch TD Q3D [facility] Last Admin: 07/20/18 22:58 Dose: 1 patch Valproate Sodium (Depakene Oral Soln) 250 mg PO BID [facility] Last Admin: 07/20/18 17:41 Dose: 250 mg - Labs Labs: 07/21/18 06:20 07/21/18 06:20 PT 12.7 SECONDS (9.4-12.5) H 07/08/18 11:10 INR 1.12 07/08/18 11:10 APTT 27.6 Seconds (26.9-38.3) 07/08/18 11:10
[2018-07-21] MEDS: Valproic Acid 250 mg/5 ml UD Cup PO SCH ×2 (09:48→17:17)
--- NOTE | 2018-07-21 11:13 | PN ---
DATE: 07/21/2018 CARDIOLOGY FOLLOWUP SUBJECTIVE: The patient is awake, but is unable to carry a conversation and does not follow verbal commands. PHYSICAL EXAMINATION VITAL SIGNS: Blood pressure is 147/93, heart rate is in the 70s. NECK: Negative JVD. LUNGS: Without rales. HEART: S1 and S2. EXTREMITIES: Without edema. LABORATORY DATA: Hemoglobin is 13.3, BUN and creatinine are unremarkable. Glucose is 118. IMPRESSION 1. Anoxic encephalopathy. 2. Status post acute inferior wall myocardial infarction. 3. Status post cardiogenic shock. 4. Status post ventricular fibrillation arrest. 5. Hypertension. PLAN: Given these findings, the patient's blood pressure is better with the institution of his lisinopril. Devonte Patel MD
--- NOTE | 2018-07-21 12:09 | PN ---
DATE: 07/21/2018 SUBJECTIVE: He is resting comfortably in the Intensive Care Unit. His eyes are opened, not really focusing, but at times , he is understanding when I talked to him. He has got a trach collar, off the ventilator. MEDICATIONS: He is on Ativan, Depakene, DuoNeb, Ecotrin, Effient, heparin, Lipitor, Protonix, Ritalin, thiamine, Transderm-Scop, Xanax, and Zestril. PHYSICAL EXAMINATION: VITAL SIGNS: He has a 99.6 temperature, 91 pulse, 127/71 blood pressure, and 93% of O2 sat. HEENT: He is alert, but not aware. Eyes are opened, can focus. HEART: Regular rate. LUNGS: Decreased breath sounds. ABDOMEN: Soft. EXTREMITIES: No edema. LABORATORY DATA: He has a 9.7 white count, 13.3 hemoglobin, 40.5 hematocrit with 462 platelets. Sodium 139, potassium 4.4, BUN 31, creatinine 0.8, GFR is greater than 60, sugar is 118, calcium is 9.5, total bili is 0.5, AST is 70, ALT is 49, alk phos 89, and total protein 8. ASSESSMENT AND PLAN: He is being seen by Infectious Disease, Neurology, Cardiology, and Interactive Multimedia Designer. We are hoping to get him to an long-term acute care for further care, and hopefully slow continued improvement if possible. He is status post cardiac arrest, percutaneous transluminal coronary angioplasty, hypoxic brain injury. We will continue with aggressive treatment and care and hopefully get him to a halfway acute care facility for further treatment. Ministerio Wan DO [facility]
--- NOTE | 2018-07-21 13:46 | PN ---
DATE: 07/21/2018 SUBJECTIVE: The patient seen earlier today in room 129, bed 6. The patient is in the unit. PHYSICAL EXAMINATION VITAL SIGNS: Temperature is 97, blood pressure is 160/70, respiratory rate of 23, and heart rate of 92. HEENT: Unremarkable. is trach. NECK: Supple. LUNGS: Decreased breath sounds. HEART: Normal S1 and S2. ABDOMEN: Soft. LABORATORY DATA: Reveals a white count of 9.7. Chemistries reveal the BUN of 31, creatinine of 0.8 . Urinalysis is noted. Serology is reviewed. Microbiology is noted. Stool for C. diff is negative. Blood cultures are negative. REVIEW OF ORDERS: Reveals the patient to be on no antibiotics. ASSESSMENT AND PLAN: A 53-year-old male who was seen earlier today in room 129, bed 6 with sepsis, healthcare-associated pneumonia, Klebsiella sensitive staph aureus, history of alcohol abuse, cardiac arrest, hypertension, coronary artery disease, currently now off antibiotics and afebrile, normal white count. The patient's condition is poor. Colton Michelle MD
[2018-07-22 06:35] LABS: BASO # 0.02 K/mm3 (0.0-2.0); BASO % 0.2 % (0.0-3.0); EOS # 0.2 (0.0-0.7); EOS % 2.1 % (1.5-5.0); HEMOGLOBIN 13.3 g/dL (14.0-18.0); LYMPH # 2.2 (1.2-3.4); LYMPH % 22.6 % (22.0-35.0); MEAN CELL VOLUME 93.8 fl (80.0-105.0); MEAN CORPUSCULAR HEMOGLOBIN 30.6 pg (25.0-35.0); MEAN CORPUSCULAR HGB CONC 32.7 g/dl (31.0-37.0); MEAN PLATELET VOLUME 10.3 fl (7.0-11.0); MONO # 0.5 (0.1-0.6); MONO % 5.4 % (1.0-6.0); RBC 4.34 10^6/uL (3.5-6.1); RED CELL DISTRIBUTION WIDTH 13.7 % (11.5-14.5); WHITE BLOOD COUNT 9.7 10^3/uL (4.5-11.0)
[2018-07-22 07:06] LABS: ALB/GLOB RATIO 1.1 (1.1-1.8); ALBUMIN 4.2 g/dL (3.0-4.8); ALT/SGPT 48 U/L (7-56); AST/SGOT 72 U/L (17-59); BLOOD UREA NITROGEN 39 mg/dL (7-21); CALCIUM 9.6 mg/dL (8.4-10.5); GFR NON-AFRICAN AMERICAN > 60
--- NOTE | 2018-07-22 08:14 | PN ---
DATE: 07/22/2018 SUBJECTIVE: The patient seen earlier today in 129, bed 6. PHYSICAL EXAMINATION: VITAL SIGNS: Temperature is 98, blood pressure is 106/60, respiratory 24, heart rate of 83. HEENT: Unremarkable. NECK: Supple. LUNGS: Have decreased breath sounds. HEART: Normal S1, S2. ABDOMEN: Soft, nontender. LABORATORY DATA: White count of 9.7, hemoglobin of 13. Chemistries reveals a BUN of 39, creatinine of 0.8. Urinalysis is noted. Review of orders reveals the patient is off of antibiotics. ASSESSMENT AND PLAN: This is a 53-year-old male who was seen in the intensive care unit with initially sepsis with healthcare-associated pneumonia Klebsiella and sensitive Staphylococcus aureus, history of alcohol abuse, cardiac arrest, hypertension, coronary artery disease, currently now off of antibiotics, afebrile. The patient is at risk for developing nosocomial infections. Dr. Devonte Patel's note is reviewed from yesterday. The patient with anoxic encephalopathy, status post acute inferior wall myocardial infarction and status post cardiac shock, status post ventricular fibrillation arrest and hypertension. Overall prognosis is poor. Colton Michelle MD
--- NOTE | 2018-07-22 08:57 | PN ---
DATE: 07/22/2018 SUBJECTIVE: The patient hemodynamically is unchanged. PHYSICAL EXAMINATION: VITAL SIGNS: Blood pressure is 106/66, heart rate is in the 70s. NECK: Negative JVD. LUNGS: Without rales. HEART: S1 and S2. EXTREMITIES: Without edema. LABORATORY DATA: Hemoglobin is 13.8. Chemistries: BUN and creatinine unchanged. IMPRESSION: 1. Status post cardiogenic shock. 2. Status post inferior wall myocardial infarction with right ventricle infarct. 3. Status post ventricular fibrillation arrest. 4. Status post emergency percutaneous transluminal coronary angioplasty and stent in right coronary artery. 5. Anoxic encephalopathy. ASSESSMENT AND PLAN: Given these findings, the patient is hemodynamically stable. His medications which include aspirin, atorvastatin, lisinopril and Effient are appropriate. Devonte Patel MD
[2018-07-22] MEDS: Valproic Acid 250 mg/5 ml UD Cup PO SCH ×3 (09:25→18:24)
[2018-07-22] MEDS ORDERED: Thiamine 100 mg/ml Inj ONE (09:31)
--- NOTE | 2018-07-22 13:35 | PN ---
DATE: 07/22/2018 SUBJECTIVE: He is resting comfortably in bed in the intensive care unit, not much change. He is off the ventilator. He is off many medications. Now, he is on Ativan, Depakene, DuoNebs, Ecotrin, Effient, heparin, Lipitor, Protonix, Ritalin, Thiamine, Transderm-Scop, Xanax, and Zestril. Actually, the Protonix can be changed to the PEG feedings. He really has nothing IV going on right now. He could be discharged hopefully to a lesser than a LTAC, may be a simple [facility] or group home. PHYSICAL EXAMINATION: VITAL SIGNS: He has 98.7 temperature, 90 pulse, 106/66 blood pressure, 24 respiratory rate, 93% O2 sat on oxygen, trach collar. HEENT: His head is atraumatic, normocephalic. He has trach collar, off the vent. HEART: Regular rate. LUNGS: Decreased breath sounds. ABDOMEN: Soft, obese. EXTREMITIES: No edema. LABORATORY DATA: He has a 9.7 white count, 13.3 hemoglobin, 40.7 hematocrit with 460 platelets. He has 140 sodium, potassium 4.2, BUN 39, creatinine 0.8, GFR is greater than 60, sugar is 115, calcium 9.6, total bilirubin is 0.5, AST is 72, ALT is 40, alk phos 84, total protein 7.9. ASSESSMENT AND PLAN: He is being seen by numerous physicians, Cardiology, Infectious Disease. He is status post cardiogenic shock, status post inferior wall myocardial infarction, status post ventricular fibrillation arrest. He was on ventilator. He has a tracheostomy with off the vent. I am hoping to be discharging him soon to a possible long-term care versus a group home. He is on Ativan, Depakene, DuoNebs, Ecotrin, Effient, heparin, Lipitor, Protonix, Ritalin, Thiamine, Transderm-Scop, Xanax, and Zestril. I will change his IV Protonix to p.o. He would not be on anything intravenous. Ministerio Wan DO [facility] # [id number]
--- NOTE | 2018-07-22 20:12 | CP.PCM.PN ---
Subjective - Date & Time of Evaluation Date of Evaluation: 07/22/18 Time of Evaluation: 06:15 - Subjective Subjective: To be dictated. Restraint order co-signed. Objective - Vital Signs/Intake and Output Vital Signs (last 24 hours): Temp Pulse Resp BP Pulse Ox 98.6 F 98 H 22 107/75 96 07/22/18 16:00 07/22/18 18:00 07/22/18 16:01 07/22/18 17:21 07/22/18 16:01 Intake and Output: 07/22/18 07/23/18 18:59 06:59 Intake Total 1050 Output Total 525 Balance 525 - Medications Medications: Current Medications Albuterol/Ipratropium (Duoneb 3 Mg/0.5 Mg (3 Ml) Ud) 3 ml IH Q2H PRN PRN Reason: Shortness of Breath Last Admin: 07/20/18 08:27 Dose: 3 ml Alprazolam (Xanax) 0.25 mg PO TID PRN; Protocol PRN Reason: Agitation Stop: 07/25/18 16:03 Aspirin (Ecotrin) 81 mg PO DAILY [facility] Last Admin: 07/22/18 09:25 Dose: 81 mg Atorvastatin Calcium (Lipitor) 40 mg PO DIN [facility] Last Admin: 07/22/18 18:23 Dose: 40 mg Heparin Sodium (Porcine) (Heparin) 5,000 units SC Q12 [facility]; Protocol Last Admin: 07/22/18 09:25 Dose: 5,000 units Thiamine HCl 300 mg/ Sodium (Chloride) 53 mls @ 106 mls/hr IV DAILY [facility] Last Admin: 07/22/18 09:28 Dose: 106 mls/hr Lisinopril (Zestril) 5 mg PO DAILY [facility] Last Admin: 07/22/18 17:21 Dose: Not Given Lorazepam (Ativan) 2 mg IVP Q2H PRN; Protocol PRN Reason: Anxiety Last Admin: 07/22/18 01:46 Dose: 2 mg Methylphenidate HCl (Ritalin) 5 mg PO DAILY [facility] Last Admin: 07/22/18 09:26 Dose: 5 mg Pantoprazole Sodium (Protonix Ec Tab) 40 mg PO 0600 [facility] Prasugrel (Effient) 10 mg PO DAILY [facility] Last Admin: 07/22/18 09:29 Dose: 10 mg Scopolamine (Transderm-Scop) 1 patch TD Q3D [facility] Last Admin: 07/20/18 22:58 Dose: 1 patch Valproate Sodium (Depakene Oral Soln) 250 mg PO BID [facility] Last Admin: 07/22/18 18:24 Dose: 250 mg - Labs Labs: 07/22/18 05:30 07/22/18 05:30 PT 12.7 SECONDS (9.4-12.5) H 07/08/18 11:10 INR 1.12 07/08/18 11:10 APTT 27.6 Seconds (26.9-38.3) 07/08/18 11:10
[2018-07-23] MEDS: Pantoprazole 40 mg EC Tab PO SCH (05:06)
[2018-07-23] MEDS: Valproic Acid 250 mg/5 ml UD Cup PO SCH ×2 (09:31→17:45)
--- NOTE | 2018-07-23 10:43 | PN ---
DATE: 07/23/2018 SUBJECTIVE: He is still in the intensive care unit. He is not alert at this time. He is on the trach collar oxygen of the ventilator. He is on Ativan, Depakene, DuoNeb, Ecotrin, Effient, heparin, Lipitor, Protonix, Ritalin, thiamine, Transderm-Scop, Xanax, and Zestril. I spoke to a doctor from about his condition and the need for him to go to facility for further care, he said that would be fine. PHYSICAL EXAMINATION VITAL SIGNS: A 98.9 temp, 94 pulse, 163/77 blood pressure, 26 respiratory rate and 96% of O2 sat. HEENT: Head is atraumatic and normocephalic. HEART: Regular rate. LUNGS: Clear to auscultation. ABDOMEN: Soft. Obese. EXTREMITIES: No edema. NEUROLOGICAL: He is not alert and not moving anything this morning. LABORATORY DATA: He has a 9.7 white count, 13.3 hemoglobin, 40.7 hematocrit with 460 platelets. He has a 140 sodium, potassium 4.2, BUN 39, creatinine 0.8, GFR is greater than 60, last blood sugar is 123, calcium is 9.6, total bili is 0.5, AST is 72, ALT is 40, alk phos 84 and total protein 7.9. ASSESSMENT AND PLAN: Await transfer for the facility, spoke to the insurance company doctor that this needs to be done. Ministerio Wan DO [facility]
--- NOTE | 2018-07-23 11:47 | PN ---
DATE: 07/23/2018 SUBJECTIVE: The patient's clinical status unchanged. PHYSICAL EXAMINATION: VITAL SIGNS: Blood pressure 101/50, heart rate is in the 70s. NECK: Negative JVD. LUNGS: Without rales. HEART: S1, S2. EXTREMITIES: Without edema. LABORATORY DATA: Hemoglobin is 13. Chemistries, BUN and creatinine are unremarkable. Glucose is 123. IMPRESSION: 1. Status post cardiogenic shock. 2. Status post acute inferior wall myocardial infarction complicated by right ventricle infarct. 3. Status post respiratory failure. 4. Status post percutaneous transluminal coronary angioplasty and stent of right coronary artery. PLAN: Given these findings, the patient was clinically stable throughout this time. We will discontinue telemetry today. Awaiting placement to LTAC. Devonte Patel MD
[2018-07-23 15:58] VITALS: RESP 18
--- NOTE | 2018-07-23 20:43 | PN ---
DATE: 07/23/2018 SUBJECTIVE: The patient is seen in bed, in no acute distress, nontoxic. No fevers. No chills. PHYSICAL EXAMINATION: VITAL SIGNS: Temperature is 98, blood pressure is 108/60, respiratory rate of 21, heart rate of 86. HEENT: Unremarkable. NECK: Supple. LUNGS: Have decreased breath sounds. HEART: Normal S1 and S2. ABDOMEN: Soft, nontender. LABORATORY DATA: Laboratory examination reveals a white count of 9.7, hemoglobin of 13. Chemistries reveal a BUN of 39, creatinine of 0.8. Urinalysis is noted and microbiology is noted. Review of orders reveals the patient to be off of antibiotics. ASSESSMENT AND PLAN: This is a 53-year-old male who was seen in the intensive care unit this morning. Initially admitted with sepsis, healthcare associated pneumonia, Klebsiella and sensitive to Staphylococcus, history of alcohol abuse, cardiac arrest, hypertension, coronary artery disease. Off of antibiotics. The patient has anoxic encephalopathy, status post acute inferior wall myocardial infarction, status post cardiac shock, status post ventricular fibrillation arrest and hypertension. Overall prognosis is quite poor. Colton Michelle MD
[2018-07-24] MEDS: Pantoprazole 40 mg EC Tab PO SCH (05:31)
[2018-07-24] MEDS: Valproic Acid 250 mg/5 ml UD Cup PO SCH (09:17)
[2018-07-24 14:36] VITALS: BP 143/91; PULSE 108; TEMP 100; O2SAT 94
[2018-07-24] MEDS ORDERED: Bacitracin Ointment 30 GM TUBE TOP SCH (18:00)
--- NOTE | 2018-07-24 19:33 | PN ---
DATE: 07/24/2018 CARDIOLOGY FOLLOWUP SUBJECTIVE: The patient is awake, however not following commands, unable to carry a conversation. PHYSICAL EXAMINATION: VITAL SIGNS: Stable. NECK: Negative JVD. LUNGS: Without rales. HEART: Reveals S1 and S2. EXTREMITIES: Without edema.. LABORATORY DATA: Hemoglobin is 13. Chemistries, glucose 135. IMPRESSION: 1. Status post cardiogenic shock. 2. Anoxic encephalopathy. 3. Status post inferior wall myocardial infarction with right ventricle infarct. 4. Status post emergency percutaneous transluminal coronary angioplasty and stent. 5. Diabetes mellitus. Given these findings, the patient is hemodynamically stable. Will continue on aspirin and Effient. Devonte Patel MD
--- NOTE | 2018-07-25 03:10 | DS ---
HISTORY OF PRESENT ILLNESS: He is being discharged today. He was seen by Cardiology, compliance lead, Neurology, Infectious Disease, Ear, Nose and Throat, interventional radiologist. He had multiple problems. PHYSICAL EXAMINATION: VITAL SIGNS: He has a 98.1 temperature, 91 pulse, 96/63 blood pressure, 18 respiratory rate and 92% O2 sat. HEENT: Head is atraumatic, normocephalic. He has got a tracheostomy in place. He is off the vent, it is a tracheostomy collar. HEART: Regular rate. LUNGS: Decreased breath sounds. ABDOMEN: Soft, obese with a feeding tube. EXTREMITIES: No edema. LABORATORY DATA: He has a 9.7 white count, 13.3 hemoglobin, 40.7, hematocrit with a 460 platelets. Last blood sugar was 135. ASSESSMENT AND PLAN: He has multiple issues. He is status post cardiogenic shock. He had an inferior wall myocardial infarction. He had a right ventricle infarct. Status post respiratory failure on a vent. He had coronary artery disease with stent. He had hypoxic encephalopathy. Sepsis. History of alcohol abuse. Hopefully he will improve. Ministerio Wan DO
--- NOTE | 2018-07-27 08:39 | PN ---
DATE: 07/24/2018 SUBJECTIVE: The patient is seen earlier today in room 562, bed 1. No fevers. No chills. No changes. PHYSICAL EXAMINATION: VITAL SIGNS: Temperature is 98, blood pressure of 96/60, respiratory rate of 18. HEENT: Unremarkable. NECK: Supple. LUNGS: Decreased breath sounds. HEART: Normal S1 and S2. ABDOMEN: Soft. LABORATORY DATA: Reveals a white count of 9.7, hemoglobin of 13 and platelets of . Chemistries are noted. Creatinine is 0.8. Urinalysis is noted. is noted. Serology is reviewed. ASSESSMENT AND PLAN: This is a 53-year-old male who was seen earlier this morning in room 562, bed 1, who is admitted with cardiac arrest and coronary artery disease, developed sepsis antibiotic therapy. The patient with anoxic encephalopathy, status post acute inferior wall myocardial infarction, status post cardiac shock, atrial fibrillation . Overall prognosis is quite poor. Colton Michelle MD
== END 2018-07-24 18:19 | DRG 3 ==
LOC: ED 10:11 → ERH 13:42 → CCU 17:11 → 5RSO 07-23 12:42 → 5RNO 07-23 20:20
PROVIDERS: ADMIT Family Medicine; ATTEND Family Medicine
PROC: 5A02210 Assistance with Cardiac Output using Balloon Pump, Continuous (ICD-10-PCS; 2018-07-01)
PROC: 5A1955Z Respiratory Ventilation, Greater than 96 Consecutive Hours (ICD-10-PCS; 2018-07-01)
PROC: 027034Z Dilation of Coronary Artery, One Artery with Drug-eluting Intraluminal Device, Percutaneous Approach (ICD-10-PCS; 2018-07-01)
PROC: 4A023N7 Measurement of Cardiac Sampling and Pressure, Left Heart, Percutaneous Approach (ICD-10-PCS; 2018-07-01)
PROC: B211YZZ Fluoroscopy of Multiple Coronary Arteries using Other Contrast (ICD-10-PCS; 2018-07-01)
PROC: B215YZZ Fluoroscopy of Left Heart using Other Contrast (ICD-10-PCS; 2018-07-01)
PROC: 3E033PZ Introduction of Platelet Inhibitor into Peripheral Vein, Percutaneous Approach (ICD-10-PCS; 2018-07-01)
PROC: 0BH17EZ Insertion of Endotracheal Airway into Trachea, Via Natural or Artificial Opening (ICD-10-PCS; 2018-07-01)
PROC: 3E0F7GC Introduction of Other Therapeutic Substance into Respiratory Tract, Via Natural or Artificial Opening (ICD-10-PCS; 2018-07-04)
PROC: 0BH17EZ Insertion of Endotracheal Airway into Trachea, Via Natural or Artificial Opening (ICD-10-PCS; 2018-07-04)
PROC: 0B110F4 Bypass Trachea to Cutaneous with Tracheostomy Device, Open Approach (ICD-10-PCS; principal; 2018-07-08 15:00)
PROC: 0DH63UZ Insertion of Feeding Device into Stomach, Percutaneous Approach (ICD-10-PCS; 2018-07-15)
PROC: 3E0G76Z Introduction of Nutritional Substance into Upper GI, Via Natural or Artificial Opening (ICD-10-PCS; 2018-07-16)
DX: I21.4 Non-ST elevation (NSTEMI) myocardial infarction (principal); I49.01 Ventricular fibrillation; R57.0 Cardiogenic shock; J96.01 Acute respiratory failure with hypoxia; G93.6 Cerebral edema; K72.00 Acute and subacute hepatic failure without coma; A41.9 Sepsis, unspecified organism; J69.0 Pneumonitis due to inhalation of food and vomit; J15.211 Pneumonia due to Methicillin susceptible Staphylococcus aureus; G93.1 Anoxic brain damage, not elsewhere classified; N17.9 Acute kidney failure, unspecified; M62.82 Rhabdomyolysis; J98.11 Atelectasis; Z99.11 Dependence on respirator [ventilator] status; I25.10 Atherosclerotic heart disease of native coronary artery without angina pectoris; I10 Essential (primary) hypertension; T17.990A Other foreign object in respiratory tract, part unspecified in causing asphyxiation, initial encounter; I27.20 Pulmonary hypertension, unspecified; E87.6 Hypokalemia; E66.9 Obesity, unspecified; E78.00 Pure hypercholesterolemia, unspecified; I48.91 Unspecified atrial fibrillation; E11.9 Type 2 diabetes mellitus without complications; F15.10 Other stimulant abuse, uncomplicated; F17.210 Nicotine dependence, cigarettes, uncomplicated; F10.20 Alcohol dependence, uncomplicated; Y95 Nosocomial condition; Z79.899 Other long term (current) drug therapy; Z95.5 Presence of coronary angioplasty implant and graft; Z68.35 Body mass index [BMI] 35.0-35.9, adult